=== PATIENT | male | born 1975 ===

== ENCOUNTER 2017-01-06 08:25 | Day surgery (SDC) | payer MEDICAID ==
[2017-01-06 08:45] VITALS: BMI 19.8
[2017-01-06] MEDS ORDERED: Propofol 10 mg/ml Inj (20 ML) ONE ×2 (10:56)
[2017-01-06] MEDS ORDERED: Lactated Ringer's 1,000 ML IV SCH (11:00)
[2017-01-08 15:28] VITALS: O2SAT 100
[2017-01-08 15:30] VITALS: RESP 18
[2017-01-08 15:32] VITALS: BP 111/78; PULSE 78
[2017-01-08 15:33] VITALS: TEMP 98
== END 2017-01-06 12:32 | disposition home or self-care (01) ==
LOC: C.ENDO 08:25
PROVIDERS: ATTEND Internal Medicine Gastroenterology
DX: K29.60 Other gastritis without bleeding (principal); K31.89 Other diseases of stomach and duodenum; K76.6 Portal hypertension; K70.30 Alcoholic cirrhosis of liver without ascites; I10 Essential (primary) hypertension
CPT/HCPCS: 43239; 88305; 88342; J2704; J7120

== ENCOUNTER 2017-04-23 13:41 | Emergency (ER) | payer MEDICAID ==
[2017-04-23 13:41] VITALS: BMI 19.8
[2017-04-23 13:49] VITALS: RESP 18; O2SAT 100
[2017-04-23] MEDS ORDERED: Sodium Chloride 0.9% 1,000 ML IV ONE (14:01)
--- NOTE | 2017-04-23 14:09 | C.PDOC ---
History Of Present Illness 42 y/o male hx alcohol abuse presents to the ED with complaints of episode of vertigo this morning. Pt states room spins when moving his head. He also reports shaking and abdominal discomfort. Pt had routine checkup with his PMD yesterday, he stopped drinking prior. He states he has never been to detox in the past, but would like to. Denies chest pain, SOB vomiting, vision changes or any other complaints. Time Seen by Provider: 04/23/17 13:55 Chief Complaint (Nursing): Dizziness/Lightheaded History Per: Patient History/Exam Limitations: no limitations Onset/Duration Of Symptoms: Hrs Current Symptoms Are (Timing): Still Present Suicide/Self Injury Attempted (Context): None Modifying Factor(s): Alcohol Severity: Mild Involuntary Hold By: None Recent travel outside of the [place]: No Past Medical History Reviewed: Historical Data, Nursing Documentation, Vital Signs Vital Signs: Last Vital Signs Temp 98.2 F 04/23/17 13:49 Pulse 74 04/23/17 13:49 Resp 18 04/23/17 13:49 BP 113/69 04/23/17 13:49 Pulse Ox 100 04/23/17 14:11 - Medical History PMH: Anemia, Gastritis (+ H. PYLORII), Gastrointestinal Ulcer, HTN (PORTAL), Seizures Surgical History: Endoscopy - [facility] Procedures ALCOHOL DETOXIFICATION (10/03/14) DETOXIFICATION SERVICES FOR SUBSTANCE ABUSE TREATMENT (10/16/16) ESOPHAGOGASTRODUODENOSCOPY [EGD] W/CLOSED BIOPSY (08/10/14) INDIV SHEET METAL PATTERN CUTTER FOR SUBSTANCE ABUSE TREATMENT, BEHAVIORAL (08/05/15) INSERTION OF ENDOTRACHEAL AIRWAY INTO TRACHEA, VIA OPENING (08/05/15) INSPECTION OF UPPER INTESTINAL TRACT, ENDO (08/05/15) OTHER ENDOSCOPY OF SM INTEST (11/19/14) PACKED CELL TRANSFUSION (04/04/15) PLATELET TRANSFUSION (11/19/14) RESPIRATORY VENTILATION, 24-96 CONSECUTIVE HOURS (08/05/15) TRANSFUSE NONAUT PLATELETS IN PERIPH VEIN, PERC (08/05/15) TRANSFUSE NONAUT RED BLOOD CELLS IN PERIPH VEIN, PERC (08/05/15) VACCINATION NEC (03/14/14) Family History: States: Unknown Family Hx - Social History Hx Tobacco Use: No Hx Alcohol Use: Yes (daily) Hx Substance Use: No - Immunization History Hx Tetanus Toxoid Vaccination: No Hx Influenza Vaccination: No Hx Pneumococcal Vaccination: No Review Of Systems Except As Marked, All Systems Reviewed And Found Negative. Eyes: Negative for: Vision Change Cardiovascular: Negative for: Chest Pain Respiratory: Negative for: Shortness of Breath Gastrointestinal: Negative for: Vomiting Neurological: Positive for: Dizziness Physical Exam - Physical Exam Appears: Non-toxic, No Acute Distress Skin: Warm, Dry, No Rash Head: Atraumatic, Normacephalic Eye(s): bilateral: Scleral Icterus Neck: Normal, Normal ROM, Supple Chest: Symmetrical Cardiovascular: Rhythm Regular, No Murmur Respiratory: Normal Breath Sounds, No Rales, No Rhonchi, No Wheezing Gastrointestinal/Abdominal: Soft, Tenderness (mild diffuse), No Guarding, No Rebound Extremity: Bilateral: Atraumatic Neurological/Psych: Oriented x3, Normal Speech, Normal Motor, Normal Sensation, Other (mild tremor) ED Course And Treatment - Laboratory Results Result Diagrams: 04/23/17 14:18 04/23/17 14:18 Lab Interpretation: Abnormal (Anemia, unchanged from labs done 2 weeks ago. Elevated AST and bili also unchanged) O2 Sat by Pulse Oximetry: 100 (room air) Pulse Ox Interpretation: Normal Reevaluation Time: 17:08 Reassessment Condition: Improved (Patient appears more comfortable after IV fluids. He is able to tolerate food.) - Physician Consult Information Time Consulting Physician Contacted: 17:09 Physician Contacted: Dennis Sawyer MD Outcome Of Conversation: She knows the patient well and states that he has known alcoholic cirrhosis. He usually refuses and detox or intervention. Patient is offered admission for treatment of alcohol withdrawal but is currently refusing. He will "foilow up next time." Disposition Counseled Patient/Family Regarding: Studies Performed, Need For Followup - Disposition Referrals: Silverio PATTERSON,MD Dennis [Medical Doctor] - Alcoholics Anonymous [Outside] Disposition: HOME/ ROUTINE Disposition Time: 17:15 Condition: STABLE Instructions: Alcohol Withdrawal (ED), Abuse of Alcohol (ED), Dizziness (ED) - Clinical Impression Clinical Impression: Alcohol withdrawal, Liver cirrhosis, alcoholic, Dizziness - Scribe Statement The provider has reviewed the documentation as recorded by the Adriana Burns Provider Attestation: All medical record entries made by the Robertibfernando were at my direction and personally dictated by me. I have reviewed the chart and agree that the record accurately reflects my personal performance of the history, physical exam, medical decision making, and the department course for this patient. I have also personally directed, reviewed, and agree with the discharge instructions and disposition.
[2017-04-23 14:29] LABS: HEMOGLOBIN 8.3 g/dL (12.0-18.0); MEAN CORPUSCULAR HEMOGLOBIN 22.9 pg (27.0-31.0); MEAN CORPUSCULAR HGB CONC 30.2 g/dL (33.0-37.0); MEAN PLATELET VOLUME 8.4 fL (7.2-11.7); RBC 3.6 Mil/uL (4.40-5.90); RED CELL DISTRIBUTION WIDTH 21.4 % (11.5-14.5)
[2017-04-23 14:30] LABS: WHITE BLOOD COUNT 4.2 K/uL (4.8-10.8)
[2017-04-23 14:32] LABS: ALBUMIN 4.4 g/dL (3.5-5.0)
[2017-04-23 14:34] LABS: GFR AFRICAN-AMERICAN > 60; GFR NON-AFRICAN AMERICAN > 60
[2017-04-23 14:35] LABS: ALT/SGPT 60 U/L (21-72); AST/SGOT 173 U/L (17-59); BLOOD UREA NITROGEN 7 mg/dL (9-20); CALCIUM 8.8 mg/dl (8.6-10.4)
[2017-04-23 15:05] LABS: LYMPH # 0.6 K/uL (1.0-4.3); MONO # 0.2 K/uL (0.0-0.8); NEUT # 3.4 K/uL (1.8-7.0)
[2017-04-23 16:45] LABS: BENZODIAZEPINES, UR NEGATIVE (NEGATIVE)
[2017-04-23 16:46] LABS: BARBITURATES, UR NEGATIVE (NEGATIVE)
[2017-04-23 16:51] LABS: OPIATES, UR NEGATIVE (NEGATIVE)
[2017-04-23 16:52] LABS: PHENCYCLIDINE, UR NEGATIVE (NEGATIVE)
[2017-04-23 17:07] LABS: URINE BILIRUBIN NEGATIVE (NEGATIVE); URINE BLOOD NEGATIVE (NEGATIVE); URINE CLARITY Clear (Clear); URINE COLOR Straw (YELLOW); URINE GLUCOSE (UA) NORMAL (Normal); URINE LEUKOCYTE ESTERASE NEG Leu/uL (Negative); URINE NITRATE NEGATIVE (NEGATIVE); URINE PROTEIN NEGATIVE (NEGATIVE); URINE UROBILINOGEN NORMAL mg/dL (0.2-1.0)
[2017-04-23 17:14] VITALS: BP 116/70; PULSE 78; TEMP 98.1
== END 2017-04-23 17:27 | disposition home or self-care (01) ==
LOC: C.ER 13:41
DX: F10.239 Alcohol dependence with withdrawal, unspecified (principal); K70.30 Alcoholic cirrhosis of liver without ascites; Y90.9 Presence of alcohol in blood, level not specified; R42 Dizziness and giddiness
CPT/HCPCS: 80053; 80320; 80324; 80345; 80346; 80349; 80353; 80358; 80361; 81001; 83992; 85025; 96360; 99285; J7040

== ENCOUNTER 2017-04-25 16:52 | Inpatient (IN) | payer MEDICAID ==
--- NOTE | 2017-04-25 17:45 | C.PDOC ---
History Of Present Illness <Janet Gao - Last Filed: 04/25/17 18:56> <DeionPillo Barraza - Last Filed: 04/25/17 20:59> RECUR AUD HALLUCINATION X SEV DAYS. SELF DETOX ETOH SINCE 04/23. PS HEARING "OTHER PEOPLE TALKING TO ME EVEN THOUGH I AM ALONE". DENIES NV, SZ. STATES PT W SIM EPISODES IN PAST WHEN WOULD SELF DETOX. PMH ETOH CIRRHOSIS exam MILD DIST NONTOXIC HEENT ANICTERIC. NO FASCICULATIONS CV RRR PSYCH +ACTIVE AUD HALLUCINATIONS. CALM COOPERATIVE NO SIGNS ACUTE INTOX. NO SI/ SA NEURO INTACT REMAINDER NEG (Janet Gao) History Per: Patient History/Exam Limitations: no limitations Onset/Duration Of Symptoms: Days Current Symptoms Are (Timing): Still Present Modifying Factor(s): Alcohol Associated Symptoms: Other (AUDITORY HALLUCINATION) Recent travel outside of the [place]: No <Janet Gao - Last Filed: 04/25/17 18:56> <BenoitPillo Barraza - Last Filed: 04/25/17 20:59> Chief Complaint (Nursing): Substance Abuse Past Medical History Reviewed: Historical Data, Nursing Documentation, Vital Signs - Medical History PMH: Anemia, Gastritis (+ H. PYLORII), Gastrointestinal Ulcer, HTN (PORTAL), Seizures Surgical History: Endoscopy Family History: States: Unknown Family Hx - Social History Hx Tobacco Use: No Hx Alcohol Use: Yes (daily) Hx Substance Use: No - Immunization History Hx Tetanus Toxoid Vaccination: No Hx Influenza Vaccination: No Hx Pneumococcal Vaccination: No <Janet Gao - Last Filed: 04/25/17 18:56> Review Of Systems Except As Marked, All Systems Reviewed And Found Negative. Constitutional: Negative for: Fever, Chills Cardiovascular: Negative for: Chest Pain Respiratory: Negative for: Cough, Shortness of Breath Gastrointestinal: Negative for: Nausea, Vomiting, Abdominal Pain Skin: Negative for: Rash Neurological: Negative for: Headache, Dizziness Psych: Positive for: Psychosis <Janet Gao - Last Filed: 04/25/17 18:56> Physical Exam - Physical Exam Appears: Non-toxic, Other (MILD DISTRESS) Skin: Normal Color, Warm, Dry Head: Atraumatic, Normacephalic Oral Mucosa: Moist Chest: Symmetrical Cardiovascular: Rhythm Regular Respiratory: Normal Breath Sounds, No Rales, No Rhonchi, No Wheezing Gastrointestinal/Abdominal: Soft, No Tenderness, No Guarding, No Rebound Back: Normal Inspection Extremity: Normal ROM, Capillary Refill (< 2 SEC.) Neurological/Psych: Oriented x3, Normal Speech, Normal Cognition, Other (PSYCH + ACTIVE AUD HALLUCINATIONS. CALM COOPERATIVE NO SIGNS ACUTE INTOX. NO SI/SA. NEURO INTACT.) <Janet Gao - Last Filed: 04/25/17 18:56> ED Course And Treatment - Laboratory Results Result Diagrams: 04/25/17 18:15 04/25/17 18:15 O2 Sat by Pulse Oximetry: 97 (RA) Pulse Ox Interpretation: Normal <Janet Gao - Last Filed: 04/25/17 18:56> - Laboratory Results Result Diagrams: 04/25/17 18:15 04/25/17 18:15 <Pillo Benoit - Last Filed: 04/25/17 20:59> Progress - Data Reviewed Data Reviewed: Lab, Diagnostic imaging, EKG, Old records - Critical Care Citical Care: Excluding Proc Time Critical Care Time: 90 minutes <Janet Gao - Last Filed: 04/25/17 18:56> <Pillo Benoit - Last Filed: 04/25/17 20:59> - Re-Evaluation Re-evaluation Note: 04/25/17 18:[address] DEION HOFFMANN DISPO (Janet Gao) Medical Decision Making <Janet Gao - Last Filed: 04/25/17 18:56> <Pillo Benoit - Last Filed: 04/25/17 20:59> Medical Decision Makin:06. Pt is Calm, in no acute distress No tremors noted Heart not tachycardic. Lungs Clear Pt states he hears and sees people taking to him. Dr. Abrams hospitalist notified. Will admit pt. (Pillo Benoit) Disposition <Janet Gao - Last Filed: 04/25/17 18:56> Discussed With : Hannah Leroy Doctor Will See Patient In The: Hospital Counseled Patient/Family Regarding: Diagnosis - Disposition Disposition Time: 20:17 - POA Present On Arrival: None <Pillo Benoit - Last Filed: 04/25/17 20:59> - Disposition Disposition: HOSPITALIZED Condition: STABLE - Clinical Impression Clinical Impression: Withdrawal symptoms, alcohol, Alcohol dependence - Scribe Statement The provider has reviewed the documentation as recorded by the Scribe <Janet Gao - Last Filed: 04/25/17 18:56> <Pillo Benoit - Last Filed: 04/25/17 20:59> - Scribe Statement CIERRA ASHLEY All medical record entries made by the Scribe were at my direction and personally dictated by me. I have reviewed the chart and agree that the record accurately reflects my personal performance of the history, physical exam, medical decision making, and the department course for this patient. I have also personally directed, reviewed, and agree with the discharge instructions and disposition. (Janet Gao) Physician Patient Turnover Patient Signed Over To: Pillo Benoit Handoff Comments: FU DISPO <Janet Gao - Last Filed: 04/25/17 18:56>
[2017-04-25 17:47] LABS: SQUAMOUS EPITHIAL 1 /hpf (0-5); URINE BACTERIA OCC (<OCC); URINE BILIRUBIN NEGATIVE (NEGATIVE); URINE BLOOD NEGATIVE (NEGATIVE); URINE CLARITY Clear (Clear); URINE COLOR Amber (YELLOW); URINE GLUCOSE (UA) NORMAL (Normal); URINE LEUKOCYTE ESTERASE NEG Leu/uL (Negative); URINE NITRATE NEGATIVE (NEGATIVE); URINE PROTEIN 1+ mg/dL (NEGATIVE)
[2017-04-25 17:50] LABS: BARBITURATES, UR NEGATIVE (NEGATIVE)
[2017-04-25] MEDS ORDERED: Multivitamin (MVI) 10 ML, Thiamine 100 MG, Folic Acid 1 MG in Sodium Chloride 0.9% 1,00... IV ONE ×2 (17:50→19:47)
[2017-04-25 17:51] LABS: BENZODIAZEPINES, UR NEGATIVE (NEGATIVE)
[2017-04-25 17:54] LABS: OPIATES, UR NEGATIVE (NEGATIVE); PHENCYCLIDINE, UR NEGATIVE (NEGATIVE)
[2017-04-25 18:27] LABS: HEMOGLOBIN 7.8 g/dL (12.0-18.0); MEAN CELL VOLUME 76.8 fL (80.0-94.0); MEAN CORPUSCULAR HEMOGLOBIN 22.9 pg (27.0-31.0); MEAN CORPUSCULAR HGB CONC 29.8 g/dL (33.0-37.0); MEAN PLATELET VOLUME 8.6 fL (7.2-11.7); RBC 3.42 Mil/uL (4.40-5.90); WHITE BLOOD COUNT 5.9 K/uL (4.8-10.8)
[2017-04-25 18:28] LABS: ALBUMIN 4.1 g/dL (3.5-5.0); INR 1.5; PROTHROMBIN TIME 17.2 SECONDS (9.7-12.2)
[2017-04-25 18:30] LABS: GFR AFRICAN-AMERICAN > 60; GFR NON-AFRICAN AMERICAN > 60
[2017-04-25 18:31] LABS: ALT/SGPT 58 U/L (21-72); AST/SGOT 113 U/L (17-59); BLOOD UREA NITROGEN 10 mg/dL (9-20); CALCIUM 8.9 mg/dl (8.6-10.4); LIPASE 270 U/L (23-300)
[2017-04-25 18:32] LABS: MAGNESIUM 1.4 mg/dL (1.6-2.3)
[2017-04-25] MEDS ORDERED: Bacitracin 500 Units/gm Oint Foilpak UD TOP ONE (18:33)
--- NOTE | 2017-04-25 18:42 | CT ---
PROCEDURE: CT HEAD WITHOUT CONTRAST. HISTORY: AMS COMPARISON: 09/01/2013 TECHNIQUE: Axial computed tomography images were obtained through the head/brain without intravenous contrast. Radiation dose: Total exam DLP = 904.85 mGy-cm. This CT exam was performed using one or more of the following dose reduction techniques: Automated exposure control, adjustment of the mA and/or kV according to patient size, and/or use of iterative reconstruction technique. FINDINGS: HEMORRHAGE: No intracranial hemorrhage. BRAIN: No mass effect or edema. There is mild diffuse atrophy, greater than expected for patient age. There is no evidence of acute infarct. VENTRICLES: Unremarkable. No hydrocephalus. CALVARIUM: Unremarkable. PARANASAL SINUSES: Unremarkable as visualized. No significant inflammatory changes. MASTOID AIR CELLS: Unremarkable as visualized. No inflammatory changes. OTHER FINDINGS: None. IMPRESSION: Mild diffuse atrophy, greater than expected for patient age. No evidence of intracranial mass, hemorrhage or acute infarct.
[2017-04-25 19:37] LABS: BASO % 1.7 % (0.0-2.0); EOS % 1.7 % (0.0-4.0); LYMPH % 26.3 % (20.0-40.0); NEUT # 3.4 K/uL (1.8-7.0); NEUT % 57.3 % (50.0-75.0)
[2017-04-25 19:38] LABS: BASO # 0.1 K/uL (0.0-0.2); EOS # 0.1 K/uL (0.0-0.7); LYMPH # 1.6 K/uL (1.0-4.3); MONO # 0.8 K/uL (0.0-0.8)
[2017-04-25] MEDS ORDERED: Magnesium Sulfate 1 gm in D5W 1 GM/100 ML BAG IVPB ONE ×2 (20:43→20:51)
[2017-04-26] MEDS ORDERED: Multivitamin (MVI) 10 ML, Thiamine 100 MG, Folic Acid 1 MG in Sodium Chloride 0.9% 1,00... IV ONE (02:41)
--- NOTE | 2017-04-26 08:44 | RAD ---
PROCEDURE: CHEST RADIOGRAPH, 1 VIEW HISTORY: AMS COMPARISON: Comparison is made to 10/16/2016 FINDINGS: LUNGS: No significant interval change in the lungs noted since the previous exam. Again seen is left apical thin wall bulla. PLEURA: No pneumothorax or pleural fluid seen. CARDIOVASCULAR: Normal. OSSEOUS STRUCTURES: No significant abnormalities. VISUALIZED UPPER ABDOMEN: Normal. OTHER FINDINGS: None. IMPRESSION: No evidence of acute pulmonary disease or significant interval change when compared to the previous study. Emphysematous changes.
[2017-04-26] MEDS: Pantoprazole 40 mg EC Tab PO SCH (09:39)
[2017-04-26 11:55] VITALS: BMI 19.5
--- NOTE | 2017-04-26 14:39 | CP.PCM.HP ---
Past Patient History - Infectious Disease Hx of Infectious Diseases: None - Past Medical History & Family History Past Medical History?: Yes - Past Social History Smoking Status: Never Smoked - CARDIAC Hx Hypertension: Yes (PORTAL) - PULMONARY Hx Respiratory Disorders: No - NEUROLOGICAL Hx Seizures: Yes - HEENT Hx HEENT Problems: No - RENAL Hx Chronic Kidney Disease: No - ENDOCRINE/METABOLIC Hx Endocrine Disorders: No - HEMATOLOGICAL/ONCOLOGICAL Hx Anemia: Yes - INTEGUMENTARY Hx Dermatological Problems: No - MUSCULOSKELETAL/RHEUMATOLOGICAL Hx Falls: No Hx Fractures: No - GASTROINTESTINAL Hx Gastritis: Yes (+ H. PYLORII) - GENITOURINARY/GYNECOLOGICAL Hx Genitourinary Disorders: No - PSYCHIATRIC Hx Substance Use: No - SURGICAL HISTORY Hx Surgeries: Yes - ANESTHESIA Hx Anesthesia: Yes Hx Anesthesia Reactions: No Hx Malignant Hyperthermia: No Meds Allergies/Adverse Reactions: Allergies Allergy/AdvReac Type Severity Reaction Status Date / Time No Known Allergies Allergy Verified 04/25/17 17:10 Physical Exam - Constitutional Appears: Well - Head Exam Head Exam: ATRAUMATIC, NORMAL INSPECTION, NORMOCEPHALIC - Eye Exam Eye Exam: EOMI, Normal appearance, PERRL Pupil Exam: NORMAL ACCOMODATION, PERRL - ENT Exam ENT Exam: Mucous Membranes Moist, Normal Exam - Neck Exam Neck exam: Positive for: Normal Inspection - Respiratory Exam Respiratory Exam: Decreased Breath Sounds - Cardiovascular Exam Cardiovascular Exam: REGULAR RHYTHM, +S1, +S2 - GI/Abdominal Exam GI & Abdominal Exam: Diminished Bowel Sounds, Soft - Rectal Exam Rectal Exam: Deferred Results - Vital Signs Recent Vital Signs: Last Vital Signs Temp 98.3 F 04/26/17 09:31 Pulse 66 04/26/17 09:31 Resp 20 04/26/17 09:31 BP 111/68 04/26/17 09:31 Pulse Ox 99 04/26/17 09:31 - Labs Result Diagrams: 04/25/17 18:15 04/25/17 18:15 Labs: Laboratory Results - last 24 hr 04/25/17 22:58 Blood Type O POSITIVE Antibody Screen Negative
[2017-04-27] MEDS: Pantoprazole 40 mg EC Tab PO SCH (09:29)
--- NOTE | 2017-04-27 21:35 | CP.PCM.PN ---
Subjective - Date & Time of Evaluation Date of Evaluation: 04/27/17 Objective - Vital Signs/Intake and Output Vital Signs (last 24 hours): Temp Pulse Resp BP Pulse Ox 97.8 F 73 20 137/83 99 04/27/17 15:54 04/27/17 15:54 04/27/17 15:54 04/27/17 15:54 04/27/17 15:54 Intake and Output: 04/27/17 04/28/17 18:59 06:59 Intake Total 280 Balance 280 - Medications Medications: Current Medications Chlordiazepoxide (Librium) 25 mg PO Q8 [facility] Stop: 05/01/17 06:01 Last Admin: 04/27/17 21:29 Dose: 25 mg Pantoprazole Sodium (Protonix Ec Tab) 40 mg PO DAILY [facility] Last Admin: 04/27/17 09:29 Dose: 40 mg Thiamine HCl (Vitamin B1 Tab) 100 mg PO DAILY [facility] Last Admin: 04/27/17 09:29 Dose: 100 mg - Labs Labs: PT 17.2 SECONDS (9.7-12.2) H 04/25/17 18:15 INR 1.5 04/25/17 18:15 APTT 39 SECONDS (21-34) H 04/25/17 18:15
[2017-04-28 07:44] VITALS: RESP 20
[2017-04-28] MEDS: Pantoprazole 40 mg EC Tab PO SCH (10:09)
--- NOTE | 2017-04-28 11:22 | CP.PCM.PN ---
Subjective - Date & Time of Evaluation Date of Evaluation: 04/28/17 Time of Evaluation: 10:40 - Subjective Subjective: clinically same Objective - Vital Signs/Intake and Output Vital Signs (last 24 hours): Temp Pulse Resp BP Pulse Ox 97.9 F 85 20 103/72 99 04/28/17 07:42 04/28/17 07:42 04/28/17 07:42 04/28/17 07:42 04/28/17 07:42 - Medications Medications: Current Medications Chlordiazepoxide (Librium) 25 mg PO Q8 [facility] Stop: 05/01/17 06:01 Last Admin: 04/28/17 05:22 Dose: 25 mg Pantoprazole Sodium (Protonix Ec Tab) 40 mg PO DAILY [facility] Last Admin: 04/28/17 10:09 Dose: 40 mg Thiamine HCl (Vitamin B1 Tab) 100 mg PO DAILY [facility] Last Admin: 04/28/17 10:09 Dose: 100 mg - Labs Labs: PT 17.2 SECONDS (9.7-12.2) H 04/25/17 18:15 INR 1.5 04/25/17 18:15 APTT 39 SECONDS (21-34) H 04/25/17 18:15 - Constitutional Appears: Well - Head Exam Head Exam: ATRAUMATIC, NORMAL INSPECTION, NORMOCEPHALIC - Eye Exam Eye Exam: EOMI, Normal appearance, PERRL Pupil Exam: NORMAL ACCOMODATION, PERRL - ENT Exam ENT Exam: Mucous Membranes Moist, Normal Exam - Neck Exam Neck Exam: Full ROM, Normal Inspection. absent: Lymphadenopathy - Respiratory Exam Respiratory Exam: Decreased Breath Sounds - Cardiovascular Exam Cardiovascular Exam: REGULAR RHYTHM, +S1, +S2 - GI/Abdominal Exam GI & Abdominal Exam: Soft, Diminished Bowel Sounds - Rectal Exam Rectal Exam: Deferred
[2017-04-28 11:51] LABS: HEMOGLOBIN 7.9 g/dL (12.0-18.0); MEAN CELL VOLUME 77.8 fL (80.0-94.0); MEAN PLATELET VOLUME 8.4 fL (7.2-11.7)
[2017-04-28 11:55] LABS: MEAN CORPUSCULAR HEMOGLOBIN 23.3 pg (27.0-31.0); RBC 3.39 Mil/uL (4.40-5.90); RED CELL DISTRIBUTION WIDTH 22.2 % (11.5-14.5); WHITE BLOOD COUNT 4.3 K/uL (4.8-10.8)
[2017-04-28 12:04] LABS: ALBUMIN 3.9 g/dL (3.5-5.0)
[2017-04-28 12:06] LABS: GFR AFRICAN-AMERICAN > 60; GFR NON-AFRICAN AMERICAN > 60
[2017-04-28 12:07] LABS: ALT/SGPT 53 U/L (21-72); AST/SGOT 96 U/L (17-59); BLOOD UREA NITROGEN 10 mg/dL (9-20)
[2017-04-28 12:08] LABS: CALCIUM 8.9 mg/dl (8.6-10.4)
[2017-04-28 12:22] LABS: BASO # 0.1 K/uL (0.0-0.2); EOS # 0.1 K/uL (0.0-0.7); LYMPH # 0.5 K/uL (1.0-4.3); MONO # 0.7 K/uL (0.0-0.8)
--- NOTE | 2017-04-28 12:54 | CARD ---
APPROVED REPORT EKG Measurement Heart [id number] <Conclusion> Normal sinus rhythm Normal ECG
[2017-04-28 13:52] LABS: HEMOGLOBIN 8.3 g/dL (12.0-18.0)
[2017-04-28 14:20] LABS: MEAN CELL VOLUME 78.6 fL (80.0-94.0); MEAN CORPUSCULAR HEMOGLOBIN 23.2 pg (27.0-31.0); MEAN CORPUSCULAR HGB CONC 29.6 g/dL (33.0-37.0); MEAN PLATELET VOLUME 8.4 fL (7.2-11.7); PLATELET COUNT 95 K/uL (130-400); RBC 3.58 Mil/uL (4.40-5.90); RED CELL DISTRIBUTION WIDTH 22.3 % (11.5-14.5); WHITE BLOOD COUNT 4.9 K/uL (4.8-10.8)
[2017-04-28 15:50] LABS: BASO # 0.1 K/uL (0.0-0.2); EOS # 0.2 K/uL (0.0-0.7); LYMPH # 0.4 K/uL (1.0-4.3); MONO # 0.8 K/uL (0.0-0.8); NEUT # 3.4 K/uL (1.8-7.0)
[2017-04-28 15:51] LABS: BASOPHIL 1 % (0-2); EOSINOPHIL 4 % (0-4); LYMPHOCYTE 11 % (20-40); MONOCYTE 15 % (0-10); NEUTROPHIL 69 % (50-75); PLATELET ESTIMATE DECREASED (NORMAL); TOTAL CELLS COUNTED 100
[2017-04-28 15:52] LABS: ANISOCYTOSIS SLIGHT; HYPOCHROMIC SLIGHT; POIKILOCYTOSIS SLIGHT; TARGET CELLS SLIGHT; TEARDROP CELLS SLIGHT
[2017-04-29] MEDS: Dextrose 5%/0.45% NS 1,000 ML IV SCH ×2 (00:41→14:13)
[2017-04-29 07:38] LABS: HEMOGLOBIN 7.9 g/dL (12.0-18.0); MEAN CELL VOLUME 77.4 fL (80.0-94.0); MEAN CORPUSCULAR HEMOGLOBIN 23.3 pg (27.0-31.0); MEAN CORPUSCULAR HGB CONC 30.1 g/dL (33.0-37.0); MEAN PLATELET VOLUME 8.7 fL (7.2-11.7); RBC 3.38 Mil/uL (4.40-5.90); RED CELL DISTRIBUTION WIDTH 21.7 % (11.5-14.5); WHITE BLOOD COUNT 3.7 K/uL (4.8-10.8)
[2017-04-29 07:53] LABS: ALBUMIN 3.8 g/dL (3.5-5.0)
[2017-04-29 07:56] LABS: AST/SGOT 97 U/L (17-59); GFR AFRICAN-AMERICAN > 60; GFR NON-AFRICAN AMERICAN > 60
[2017-04-29 07:57] LABS: ALT/SGPT 55 U/L (21-72); BLOOD UREA NITROGEN 7 mg/dL (9-20); CALCIUM 8.8 mg/dl (8.6-10.4)
[2017-04-29 08:46] LABS: EOS # 0.2 K/uL (0.0-0.7); LYMPH # 0.4 K/uL (1.0-4.3); MONO # 0.5 K/uL (0.0-0.8); NEUT # 2.5 K/uL (1.8-7.0)
[2017-04-29] MEDS: Pantoprazole 40 mg EC Tab PO SCH (10:51)
--- NOTE | 2017-04-29 11:26 | CP.PCM.PN ---
Subjective - Date & Time of Evaluation Date of Evaluation: 04/29/17 Time of Evaluation: 11:00 - Subjective Subjective: clinically same Objective - Vital Signs/Intake and Output Vital Signs (last 24 hours): Temp Pulse Resp BP Pulse Ox 97.4 F L 64 20 99/65 L 100 04/29/17 07:54 04/29/17 07:54 04/29/17 07:54 04/29/17 07:54 04/29/17 07:54 Intake and Output: 04/29/17 04/29/17 06:59 18:59 Intake Total 900 Balance 900 - Medications Medications: Current Medications Chlordiazepoxide (Librium) 25 mg PO Q8 [facility] Stop: 05/01/17 06:01 Last Admin: 04/29/17 05:55 Dose: 25 mg Dextrose/Sodium Chloride (Dextrose 5%/0.45% Ns 1000 Ml) 1,000 mls @ 75 mls/hr IV .[id number] [facility] Last Admin: 04/29/17 00:41 Dose: 75 mls/hr Pantoprazole Sodium (Protonix Ec Tab) 40 mg PO DAILY [facility] Last Admin: 04/29/17 10:51 Dose: 40 mg Thiamine HCl (Vitamin B1 Tab) 100 mg PO DAILY [facility] Last Admin: 04/29/17 10:51 Dose: 100 mg - Labs Labs: 04/29/17 07:21 04/29/17 07:21 PT 17.2 SECONDS (9.7-12.2) H 04/25/17 18:15 INR 1.5 04/25/17 18:15 APTT 39 SECONDS (21-34) H 04/25/17 18:15 - Constitutional Appears: Well - Head Exam Head Exam: ATRAUMATIC, NORMAL INSPECTION, NORMOCEPHALIC - Eye Exam Eye Exam: EOMI, Normal appearance, PERRL Pupil Exam: NORMAL ACCOMODATION, PERRL - ENT Exam ENT Exam: Mucous Membranes Moist, Normal Exam - Neck Exam Neck Exam: Full ROM, Normal Inspection. absent: Lymphadenopathy - Respiratory Exam Respiratory Exam: Decreased Breath Sounds - Cardiovascular Exam Cardiovascular Exam: REGULAR RHYTHM, +S1, +S2 - GI/Abdominal Exam GI & Abdominal Exam: Soft, Diminished Bowel Sounds - Rectal Exam Rectal Exam: Deferred
--- NOTE | 2017-04-29 14:12 | PCM.PSYCH ---
Initial Psychiatric Evaluation - Initial Psychiatric Evaluation Type of Admission: Voluntary Legal Status: Capacity History of Present Illness and Precipitating Events: Patient is a 42 year old, , unemployed, [place]ian man with a dx of alcohol use disorder. Patient reports auditory hallucinations upon admission of a happy [place]ian song and talking voices - but he could not recall what the voices were saying. Pt denies auditory hallucinations today. Patient reports a normal appetite. Denies suicidal ideations, paranoia, delusions, anxiety and depression. Alcohol: Pt started drinking at age 16. Patient reports drinking 4- 6 24 oz. cans of beer daily. and his last drink was on the . Patient denies withdrawal symptoms at this time. Family psychiatric hx: denies psychiatric issues Medical hx: liver problems due to alcohol use Social hx: Pt lives with his and has one 10 year old son. He is unemployed. His is employed at a [employer] and a [employer]. Current Medications: Active Medications Generic Name Dose Route Start Last Admin Trade Name Freq PRN Reason Stop Dose Admin Chlordiazepoxide 25 mg 04/26/17 06:00 04/29/17 13:19 Librium PO 05/01/17 06:01 25 mg Q8 [facility] Administration Dextrose/Sodium Chloride 1,000 mls @ 75 mls/hr 04/29/17 00:30 04/29/17 00:41 Dextrose 5%/0.45% Ns 1000 Ml IV 75 mls/hr .[id number] [facility] Administration Pantoprazole Sodium 40 mg 04/26/17 10:00 04/29/17 10:51 Protonix Ec Tab PO 40 mg DAILY [facility] Administration Thiamine HCl 100 mg 04/26/17 10:00 04/29/17 10:51 Vitamin B1 Tab PO 100 mg DAILY [facility] Administration Past Psychiatric History - Past Psychiatric History Previous Treatment History: None Pertinent Medical Hx (Current Medical&Sleep Prob, Allergies): Allergies Allergy/AdvReac Type Severity Reaction Status Date / Time No Known Allergies Allergy Verified 04/25/17 17:10 Folic Acid 1 mg PO DAILY 04/25/17 Hydroxyzine Pamoate [Vistaril] 25 mg PO TID PRN 04/25/17 Pantoprazole Sodium [Protonix] 40 mg PO DAILY 04/25/17 Propranolol [Propranolol HCl] 10 mg PO BID 04/25/17 Review of Systems - Review of Systems All systems: reviewed and no additional remarkable complaints except - Psychiatric Psychiatric: As Per HPI, Auditory Hallucinations. absent: Anxiety, Change in Appetite, Depression Mental Status Examination - Personal Presentation Personal Presentation: Looks stated age - Affect Affect: Constricted - Motor Activity Motor Activity: Calm - Reliability in Providing Information Reliability in Providing Information: Good - Speech Speech: Organized - Mood Mood: Neutral - Formal Thought Process Formal Thought Process: Hallucinations, Paranoia - Hallucinations/Delusions Hallucinations: Visual - Obsessions/Compulsions Obsessions: No Compulsions: No - Cognitive Functions Orientation: Person, Place, Situation, Time Sensorium: Alert Attention/Concentration: Attentive Abstract Thinking: [place] Estimate of Intelligence: Below average Judgement: Imparied, as evidence by: Poor judgement, Intact, as evidence by: Insight regarding need for hospitalization - Risk Risk: Withdrawal, Diminished functioning - Strength & Assets Inventory Strength & Assets Inventory: Family support DSM 5 DX - DSM 5 DSM 5 Diagnosis: Alcohol use disorder severe Alcohol withdrawal with perceptual disturbances - Recommended/Plan of Treatment Treatment Recommendations and Plan of Treatment: Alcohol use disorder severe CBT Psychoeducation Supportive therapy, individual therapy Use MN for abstinence Librium when necessary Librium taper Folic acid/thiamine/multivitamin Alcohol withdrawal with perceptual disturbances CBT Psychoeducation Patient psychiatrically cleared with a plan to follow-up with outpatient clinic
[2017-04-30] MEDS: Dextrose 5%/0.45% NS 1,000 ML IV SCH ×2 (01:44→02:32)
[2017-04-30] MEDS: Pantoprazole 40 mg EC Tab PO SCH (10:38)
[2017-04-30 12:03] LABS: HEMOGLOBIN 8.4 g/dL (12.0-18.0); MEAN CORPUSCULAR HEMOGLOBIN 23.3 pg (27.0-31.0); MEAN CORPUSCULAR HGB CONC 29.6 g/dL (33.0-37.0); MEAN PLATELET VOLUME 8.6 fL (7.2-11.7); RBC 3.59 Mil/uL (4.40-5.90); RED CELL DISTRIBUTION WIDTH 21.6 % (11.5-14.5); WHITE BLOOD COUNT 5.3 K/uL (4.8-10.8)
[2017-04-30 13:24] LABS: EOS # 0.1 K/uL (0.0-0.7); LYMPH # 0.5 K/uL (1.0-4.3); MONO # 0.8 K/uL (0.0-0.8); NEUT # 3.9 K/uL (1.8-7.0)
[2017-04-30 15:55] VITALS: BP 106/73; PULSE 86; TEMP 97.3; O2SAT 100
--- NOTE | 2017-04-30 17:44 | CP.PCM.PN ---
Subjective - Date & Time of Evaluation Date of Evaluation: 04/30/17 Time of Evaluation: 17:34 - Subjective Subjective: 42 Y/O MALE SEEN AND EXAMINED TODAY, DENIES ANY PAIN, SOB, HALLUCINATION, ABDOMINAL PAIN, N/V/, HEMATURIA OR ANY BLEEDING, RESP EASY AND UNLABORED. NAD. Objective - Vital Signs/Intake and Output Vital Signs (last 24 hours): Temp Pulse Resp BP Pulse Ox 97.3 F L 86 20 106/73 100 04/30/17 15:52 04/30/17 15:52 04/30/17 15:52 04/30/17 15:52 04/30/17 15:52 - Medications Medications: Current Medications Chlordiazepoxide (Librium) 25 mg PO Q8 [facility] Stop: 05/01/17 06:01 Last Admin: 04/30/17 15:42 Dose: 25 mg Dextrose/Sodium Chloride (Dextrose 5%/0.45% Ns 1000 Ml) 1,000 mls @ 75 mls/hr IV .[id number] [facility] Last Admin: 04/30/17 02:32 Dose: Not Given Pantoprazole Sodium (Protonix Ec Tab) 40 mg PO DAILY [facility] Last Admin: 04/30/17 10:38 Dose: 40 mg Thiamine HCl (Vitamin B1 Tab) 100 mg PO DAILY [facility] Last Admin: 04/30/17 10:38 Dose: 100 mg - Labs Labs: 04/30/17 11:28 04/29/17 07:21 PT 17.2 SECONDS (9.7-12.2) H 04/25/17 18:15 INR 1.5 04/25/17 18:15 APTT 39 SECONDS (21-34) H 04/25/17 18:15 Assessment and Plan - Assessment and Plan (Free Text) Plan: 42 Y/O MALE WIHT PMHX ALCOHOL WITHDRAWAL, ANEMIA, AUDITORY HALLUCINATION AUDITORY HALLUCINATION LIKELY SECONDARY TO ETOH WITHDRAWAL CIWA, LIBRIUM TAPER CONSULTED DR ALBA- CLEARED BY HIM MVT, THIAMINE , FOLIC ACID H/H - 8.4/28.4 (04/30) PT ADVISED TO REFRAIN FROM ALCOHOL F/U W/DR Henny WEAVER IN THE OFFICE FOR REPEAT LAB RETURN TO ED IF ANY WORSENING S/S PT AND FAMILY AGREE W/POC, VERBALIZE UNDERSTANDING
--- NOTE | 2017-04-30 17:46 | CP.PCM.PN ---
Subjective - Date & Time of Evaluation Date of Evaluation: 04/30/17 Time of Evaluation: 12:00 - Subjective Subjective: clinically same Objective - Vital Signs/Intake and Output Vital Signs (last 24 hours): Temp Pulse Resp BP Pulse Ox 97.3 F L 86 20 106/73 100 04/30/17 15:52 04/30/17 15:52 04/30/17 15:52 04/30/17 15:52 04/30/17 15:52 - Medications Medications: Current Medications Chlordiazepoxide (Librium) 25 mg PO Q8 COUNTS INCLUDE 234 BEDS AT THE [facility] Stop: 05/01/17 06:01 Last Admin: 04/30/17 15:42 Dose: 25 mg Dextrose/Sodium Chloride (Dextrose 5%/0.45% Ns 1000 Ml) 1,000 mls @ 75 mls/hr IV .[id number] COUNTS INCLUDE 234 BEDS AT THE [facility] Last Admin: 04/30/17 02:32 Dose: Not Given Pantoprazole Sodium (Protonix Ec Tab) 40 mg PO DAILY COUNTS INCLUDE 234 BEDS AT THE [facility] Last Admin: 04/30/17 10:38 Dose: 40 mg Thiamine HCl (Vitamin B1 Tab) 100 mg PO DAILY COUNTS INCLUDE 234 BEDS AT THE [facility] Last Admin: 04/30/17 10:38 Dose: 100 mg - Labs Labs: 04/30/17 11:28 04/29/17 07:21 PT 17.2 SECONDS (9.7-12.2) H 04/25/17 18:15 INR 1.5 04/25/17 18:15 APTT 39 SECONDS (21-34) H 04/25/17 18:15 - Constitutional Appears: Well - Head Exam Head Exam: ATRAUMATIC, NORMAL INSPECTION, NORMOCEPHALIC - Eye Exam Eye Exam: EOMI, Normal appearance, PERRL Pupil Exam: NORMAL ACCOMODATION, PERRL - ENT Exam ENT Exam: Mucous Membranes Moist, Normal Exam - Neck Exam Neck Exam: Full ROM, Normal Inspection. absent: Lymphadenopathy - Respiratory Exam Respiratory Exam: Decreased Breath Sounds - Cardiovascular Exam Cardiovascular Exam: REGULAR RHYTHM, +S1, +S2 ( ) - GI/Abdominal Exam GI & Abdominal Exam: Soft, Diminished Bowel Sounds - Rectal Exam Rectal Exam: Deferred
== END 2017-04-30 18:48 | disposition home or self-care (01) | DRG 751 ==
LOC: C.ER 16:52 → C.9E 20:52 → C.5T 21:58
PROVIDERS: ADMIT Internal Medicine Nephrology; ATTEND Internal Medicine Nephrology
PROC: HZ89ZZZ Medication Management for Substance Abuse Treatment, Other Replacement Medication (ICD-10-PCS; principal; 2017-04-25)
PROC: HZ59ZZZ Individual Psychotherapy for Substance Abuse Treatment, Supportive (ICD-10-PCS; 2017-04-25)
DX: F10.232 Alcohol dependence with withdrawal with perceptual disturbance (principal); K76.6 Portal hypertension; F10.251 Alcohol dependence with alcohol-induced psychotic disorder with hallucinations; D64.9 Anemia, unspecified; G40.909 Epilepsy, unspecified, not intractable, without status epilepticus

== ENCOUNTER 2017-05-12 14:07 | Observation (INO) | payer MEDICAID ==
[2017-05-12 14:07] VITALS: BMI 19.5
[2017-05-12] MEDS ORDERED: Sodium Chloride 0.9% 1,000 ML IV ONE (15:03)
[2017-05-12 15:59] LABS: WHITE BLOOD COUNT 5.1 K/uL (4.8-10.8)
[2017-05-12 16:04] LABS: HEMATOCRIT 24.6 % (35.0-51.0); MEAN CORPUSCULAR HEMOGLOBIN 22.3 pg (27.0-31.0); MEAN CORPUSCULAR HGB CONC 30.7 g/dL (33.0-37.0); MEAN PLATELET VOLUME 8.7 fL (7.2-11.7); PLATELET COUNT 131 K/uL (130-400); RED CELL DISTRIBUTION WIDTH 19.4 % (11.5-14.5)
[2017-05-12 16:05] LABS: MEAN CELL VOLUME 72.7 fL (80.0-94.0)
[2017-05-12 16:08] LABS: INR 1.2
[2017-05-12 16:13] LABS: CHLORIDE 98 mmol/L (98-107)
[2017-05-12 16:14] LABS: POTASSIUM 4.1 mmol/L (3.6-5.2); SODIUM 138 mmol/L (132-148)
[2017-05-12 16:16] LABS: ALKALINE PHOSPHATASE 157 U/L (38-126); AST/SGOT 118 U/L (17-59); BILIRUBIN,TOTAL 1.6 mg/dL (0.2-1.3); BLOOD UREA NITROGEN 5 mg/dL (9-20); CARBON DIOXIDE 22 mmol/L (22-30); GFR AFRICAN-AMERICAN > 60; TOTAL PROTEIN 7.8 g/dL (6.3-8.3)
[2017-05-12 16:17] LABS: ALB/GLOB RATIO 0.9 (1.0-2.1); ALCOHOL SERUM 142 mg/dl (0-10); ALT/SGPT 43 U/L (21-72); GLUCOSE,RANDOM 122 mg/dL (75-110); PHOSPHOROUS 3.2 mg/dL (2.5-4.5)
[2017-05-12 16:18] LABS: MAGNESIUM 1.4 mg/dL (1.6-2.3)
--- NOTE | 2017-05-12 17:35 | RAD ---
HISTORY: chest pain COMPARISON: Chest x-ray performed 04/25/17 TECHNIQUE: Chest, one view. FINDINGS: LUNGS: No significant interval change appreciated. Thin walled large left apical bulla re-identified. Please note that chest x-ray has limited sensitivity for the detection of pulmonary masses. PLEURA: No significant pleural effusion identified. No definite pneumothorax . CARDIOVASCULAR: The cardiomediastinal silhouette appears within normal limits of size. OSSEOUS STRUCTURES: No acute osseous abnormality identified. VISUALIZED UPPER ABDOMEN: Unremarkable. OTHER FINDINGS: None. IMPRESSION: No significant interval change appreciated. Thin walled large left apical bulla re-identified.
[2017-05-12 17:55] LABS: BASOPHIL 2 % (0-2); EOSINOPHIL 3 % (0-4); TOTAL CELLS COUNTED 100
[2017-05-12 17:56] LABS: NEUTROPHIL 61 % (50-75)
--- NOTE | 2017-05-12 18:00 | C.PDOC ---
History Of Present Illness <Tiarra Vasquez - Last Filed: 05/12/17 19:18> <MurrayJanet - Last Filed: 05/12/17 20:25> 42 y/o male w/PMHx of alcohol abuse, sz ds, gastritis, hx of cirrhosis, chronic anemia and hx of previous blood transfusion ( last 2014), sent to emergency department by PMD for evaluation of low hemoglobin of 6.2 found today during F/ U visit. At present time, pt appears in mild alcohol intoxication, admits ' was drinking yesterday". Otherwise, pt denies headache, dizziness, vertigo, weakness , chest pain, SOB, palpitation, denies abd. pain, vomiting, hematemesis, diarrhea, melena, hematuria, or any other complaints. (Tiarra Vasquez) History Per: Patient History/Exam Limitations: no limitations Severity: Mild Reports Recently: Treated By A Physician Recent travel outside of the [place]: No <Tiarra Vasquez - Last Filed: 05/12/17 19:18> <MurrayJanet - Last Filed: 05/12/17 20:25> Time Seen by Provider: 05/12/17 14:49 Chief Complaint (Nursing): Medical Clearance Past Medical History Reviewed: Historical Data, Nursing Documentation, Vital Signs - Medical History PMH: Anemia, Gastritis (+ H. PYLORII), Gastrointestinal Ulcer, HTN (PORTAL), Seizures Surgical History: Endoscopy Family History: States: Unknown Family Hx - Social History Hx Tobacco Use: No Hx Alcohol Use: Yes Hx Substance Use: No - Immunization History Hx Tetanus Toxoid Vaccination: No Hx Influenza Vaccination: No Hx Pneumococcal Vaccination: No <Tiarra Vasquez - Last Filed: 05/12/17 19:18> Review Of Systems Except As Marked, All Systems Reviewed And Found Negative. Constitutional: Negative for: Fever, Chills Cardiovascular: Negative for: Chest Pain Respiratory: Negative for: Cough, Shortness of Breath Gastrointestinal: Negative for: Nausea, Vomiting, Abdominal Pain Genitourinary: Negative for: Hematuria Neurological: Negative for: Weakness, Headache, Dizziness <Tiarra Vasquez - Last Filed: 05/12/17 19:18> Physical Exam - Physical Exam Appears: Well, Non-toxic, No Acute Distress Skin: Warm, Dry, No Rash Head: Atraumatic, Normacephalic Eye(s): bilateral: PERRL Nose: No Flaring Oral Mucosa: Moist, Other ((+) alcohol odor) Tongue: Normal Appearing Throat: No Drooling Neck: Normal, Normal ROM, Supple Chest: Symmetrical Cardiovascular: Rhythm Regular Respiratory: No Decreased Breath Sounds, No Accessory Muscle Use, No Rales, No Rhonchi, No Stridor, No Wheezing Gastrointestinal/Abdominal: Soft, No Tenderness, No Distention, No Guarding, No Rebound Back: No CVA Tenderness Extremity: Normal ROM, No Pedal Edema, No Deformity Extremity: Bilateral: Atraumatic Neurological/Psych: Oriented x3, Normal Speech, Normal Cognition <Tiarra Vasquez - Last Filed: 05/12/17 19:18> ED Course And Treatment - Laboratory Results Result Diagrams: 05/12/17 15:53 05/12/17 15:53 O2 Sat by Pulse Oximetry: 98 (room air) Pulse Ox Interpretation: Normal <Tiarra Vasquez - Last Filed: 05/12/17 19:18> - Laboratory Results Result Diagrams: 05/12/17 15:53 05/12/17 15:53 <Janet Gao - Last Filed: 05/12/17 20:25> ED OBSERVATION Date of observation admission: 05/12/17 Time of observation admission: 15:50 <Tiarra Vasquez - Last Filed: 05/12/17 19:18> Discharge: Yes <Janet Gao - Last Filed: 05/12/17 20:25> - Observation admission statement Patient is being placed in observation because:: Acute anemia, blood transfusion (Tiarra Vasquez) - Goals of Observation Goals of observation are:: diagnostics, tx, re-evaluation (Tiarra Vasquez) - Progress Note Progress Note: 05/12/17 At 16:20, case discussed with PMD and reports hx of chronic anemia " see in office to monitor H/H and today was low". Pt is asymptomatic. Previous ED visits review, last one was on 04/25/17 when pt was admitted w/Dx: Alcohol withdrawal syndrome and blood work review. Pt H/H level appears at baseline with today's results. Case discussed with ED attending and transfusion of 1UPRBC recommend. At 19:18, discussed with [facility] transfusion, re-eval, dispo- pending. (Tiarra Vasquez) 05/12/17 20:24 TRANSFUSION COMPLETE. PT REQUESTING DC HOME (Janet Gao) Disposition <Tiarra Vasquez - Last Filed: 05/12/17 19:18> Counseled Patient/Family Regarding: Studies Performed, Diagnosis, Need For Followup - Disposition Disposition Time: 20:25 <Janet Gao - Last Filed: 05/12/17 20:25> - Disposition Disposition: HOME/ ROUTINE Condition: IMPROVED - Clinical Impression Clinical Impression: Anemia - PA / RIVET TOSSER / Resident Statement MD/DO has reviewed & agrees with the documentation as recorded. - Scribe Statement The provider has reviewed the documentation as recorded by the Scribe <Tiarra Vasquez - Last Filed: 05/12/17 19:18> <MurrayJanet - Last Filed: 05/12/17 20:25> - Scribe Statement Addy Carrington All medical record entries made by the Scribe were at my direction and personally dictated by me. I have reviewed the chart and agree that the record accurately reflects my personal performance of the history, physical exam, medical decision making, and the department course for this patient. I have also personally directed, reviewed, and agree with the discharge instructions and disposition. (Tiarra Vasquez)
[2017-05-12 19:23] VITALS: RESP 18
[2017-05-12 20:25] VITALS: BP 107/59; PULSE 78; TEMP 98.3; O2SAT 99
== END 2017-05-12 20:25 | disposition home or self-care (01) ==
LOC: C.ER 14:07 → C.9OBSV 15:50
PROVIDERS: ADMIT Emergency Medicine; ATTEND Emergency Medicine
DX: F10.120 Alcohol abuse with intoxication, uncomplicated (principal); Y90.6 Blood alcohol level of 120-199 mg/100 ml; D64.9 Anemia, unspecified; I10 Essential (primary) hypertension
CPT/HCPCS: 36430; 71010; 80053; 80320; 83735; 84100; 85025; 85610; 85730; 86850; 86900; 86920; 96360; 99285; G0378; J7040; P9051

== ENCOUNTER 2017-06-08 18:48 | Emergency (ER) | payer MEDICAID ==
[2017-06-08 18:49] VITALS: BMI 19.5
[2017-06-08] MEDS ORDERED: Sodium Chloride 0.9% 500 ML IV ONE (19:25)
[2017-06-08] MEDS ORDERED: Sodium Chloride 0.9% 1,000 ML IV ONE (19:25)
--- NOTE | 2017-06-08 19:27 | C.PDOC ---
History Of Present Illness 42 year old male with a Hx of chronic alcoholism who presents to the ER with a complaint of abdominal pain and 2 episodes of vomiting since this afternoon. Denies dysuria or diarrhea. Chief Complaint (Nursing): Abdominal Pain History Per: Patient History/Exam Limitations: no limitations Onset/Duration Of Symptoms: Hrs Current Symptoms Are (Timing): Still Present Location Of Pain/Discomfort: Epigastric Radiation Of Pain To:: None Quality Of Discomfort: Unable To Describe Associated Symptoms: Vomiting. denies: Fever, Chills, Diarrhea, Urinary Symptoms Exacerbating Factors: None Alleviating Factors: None Recent travel outside of the [place]: No Past Medical History Reviewed: Historical Data, Nursing Documentation, Vital Signs Vital Signs: Last Vital Signs Temp 97.8 F 06/08/17 18:58 Pulse 138 H 06/08/17 18:58 Resp 18 06/08/17 18:58 BP 83/55 L 06/08/17 18:58 Pulse Ox 100 06/08/17 21:15 - Medical History PMH: Anemia, Gastritis (+ H. PYLORII), Gastrointestinal Ulcer, HTN (PORTAL), Seizures Surgical History: Endoscopy - [facility] Procedures ALCOHOL DETOXIFICATION (10/03/14) DETOXIFICATION SERVICES FOR SUBSTANCE ABUSE TREATMENT (10/16/16) ESOPHAGOGASTRODUODENOSCOPY [EGD] W/CLOSED BIOPSY (08/10/14) INDIV COOPERATIVE MANAGER FOR SUBSTANCE ABUSE TREATMENT, BEHAVIORAL (08/05/15) INDIV PSYCHOTHERAPY FOR SUBSTANCE ABUSE TREATMENT, SUPPORT (04/25/17) INSERTION OF ENDOTRACHEAL AIRWAY INTO TRACHEA, VIA OPENING (08/05/15) INSPECTION OF UPPER INTESTINAL TRACT, ENDO (08/05/15) MEDS MGMT FOR SUBSTANCE ABUSE TREATMENT, OTH REPL MED (04/25/17) OTHER ENDOSCOPY OF SM INTEST (11/19/14) PACKED CELL TRANSFUSION (04/04/15) PLATELET TRANSFUSION (11/19/14) RESPIRATORY VENTILATION, 24-96 CONSECUTIVE HOURS (08/05/15) TRANSFUSE NONAUT PLATELETS IN PERIPH VEIN, PERC (08/05/15) TRANSFUSE NONAUT RED BLOOD CELLS IN PERIPH VEIN, PERC (08/05/15) VACCINATION NEC (03/14/14) Family History: States: Unknown Family Hx - Social History Hx Tobacco Use: No Hx Alcohol Use: Yes Hx Substance Use: No - Immunization History Hx Tetanus Toxoid Vaccination: No Hx Influenza Vaccination: No Hx Pneumococcal Vaccination: No Review Of Systems Constitutional: Negative for: Fever, Chills Gastrointestinal: Positive for: Vomiting, Abdominal Pain. Negative for: Diarrhea Genitourinary: Negative for: Dysuria, Incontinence, Hematuria Skin: Negative for: Rash Neurological: Negative for: Weakness, Numbness Physical Exam - Physical Exam Appears: Non-toxic, No Acute Distress Skin: Normal Color, Warm, Dry Head: Atraumatic, Normacephalic Oral Mucosa: Moist Chest: Symmetrical, No Tenderness Cardiovascular: Rhythm Regular, No Murmur Respiratory: Normal Breath Sounds, No Rales, No Rhonchi, No Wheezing Gastrointestinal/Abdominal: Soft, Tenderness (Epigastric), No Guarding, No Rebound Neurological/Psych: Oriented x3, Normal Speech, Normal Cognition ED Course And Treatment - Laboratory Results Result Diagrams: 06/08/17 19:42 06/08/17 19:42 O2 Sat by Pulse Oximetry: 100 (Room air) Pulse Ox Interpretation: Normal Progress Note: Blood work and urinalysis ordered. Zofran, toradol, and IV fluids administered. Disposition Counseled Patient/Family Regarding: Diagnosis - Disposition Referrals: [facility] [Outside] Disposition: HOME/ ROUTINE Disposition Time: 21:12 Condition: STABLE Prescriptions: Famotidine [Pepcid] 20 mg PO BID #30 tab Ondansetron ODT [Zofran ODT] 1 odt PO BID PRN #6 odt PRN Reason: Nausea/Vomiting Sucralfate [Carafate] 1 gm PO BID #20 tab Instructions: Gastritis (DC), Abuse of Alcohol (ED) Forms: [facility] (Grenadian) - POA Present On Arrival: None - Clinical Impression Clinical Impression: Alcoholic gastritis, Alcohol abuse - Scribe Statement The provider has reviewed the documentation as recorded by the Robertibfernando Dawson All medical record entries made by the Robertibfernando were at my direction and personally dictated by me. I have reviewed the chart and agree that the record accurately reflects my personal performance of the history, physical exam, medical decision making, and the department course for this patient. I have also personally directed, reviewed, and agree with the discharge instructions and disposition.
[2017-06-08 19:46] LABS: BASO % 0.7 % (0.0-2.0); EOS # 0.1 K/uL (0.0-0.7); EOS % 1.6 % (0.0-4.0); HEMATOCRIT 23.7 % (35.0-51.0); LYMPH # 0.6 K/uL (1.0-4.3); LYMPH % 12.6 % (20.0-40.0); MEAN CELL VOLUME 78.2 fL (80.0-94.0); MEAN CORPUSCULAR HEMOGLOBIN 25.1 pg (27.0-31.0); MEAN CORPUSCULAR HGB CONC 32.1 g/dL (33.0-37.0); MEAN PLATELET VOLUME 8.4 fL (7.2-11.7); MONO # 0.4 K/uL (0.0-0.8); MONO % 7.8 % (0.0-10.0); NRBC % 0.1 % (0.0-2.0); RED CELL DISTRIBUTION WIDTH 24.1 % (11.5-14.5); WHITE BLOOD COUNT 5.1 K/uL (4.8-10.8)
[2017-06-08 20:06] LABS: CHLORIDE 95 mmol/L (98-107); POTASSIUM 3.6 mmol/L (3.6-5.2); SODIUM 134 mmol/L (132-148)
[2017-06-08 20:08] LABS: CARBON DIOXIDE 20 mmol/L (22-30); GFR AFRICAN-AMERICAN > 60
[2017-06-08 20:09] LABS: ALB/GLOB RATIO 0.9 (1.0-2.1); ALKALINE PHOSPHATASE 87 U/L (38-126); ALT/SGPT 32 U/L (21-72); AST/SGOT 94 U/L (17-59); BILIRUBIN,TOTAL 2.7 mg/dL (0.2-1.3); BLOOD UREA NITROGEN 5 mg/dL (9-20); CALCIUM 8.5 mg/dl (8.6-10.4); GLUCOSE,RANDOM 146 mg/dL (75-110); TOTAL PROTEIN 7.5 g/dL (6.3-8.3)
[2017-06-08 21:29] VITALS: BP 95/60; PULSE 115; RESP 16; TEMP 98; O2SAT 98
== END 2017-06-08 21:29 | disposition home or self-care (01) ==
LOC: C.ER 18:48
DX: K29.20 Alcoholic gastritis without bleeding (principal); F10.10 Alcohol abuse, uncomplicated; Y90.9 Presence of alcohol in blood, level not specified
CPT/HCPCS: 80053; 83690; 85025; 96374; 96375; 99284; J1885; J2405; J7040

== ENCOUNTER 2017-07-16 09:33 | Inpatient (IN) | payer MEDICAID ==
[2017-07-16 09:33] VITALS: BMI 19.5
[2017-07-16] MEDS ORDERED: Sodium Chloride 0.9% 1,000 ML IV ONE ×2 (09:59→11:39)
[2017-07-16] MEDS ORDERED: Sodium Chloride 0.9% 1,000 ML ONE (10:06)
[2017-07-16 10:18] LABS: BASO # 0.1 K/uL (0.0-0.2); BASO % 0.8 % (0.0-2.0); EOS % 0.5 % (0.0-4.0); HEMATOCRIT 14.4 % (35.0-51.0); LYMPH # 2.1 K/uL (1.0-4.3); LYMPH % 21.3 % (20.0-40.0); MEAN CORPUSCULAR HEMOGLOBIN 23.4 pg (27.0-31.0); MEAN CORPUSCULAR HGB CONC 31.2 g/dL (33.0-37.0); MEAN PLATELET VOLUME 8.6 fL (7.2-11.7); MONO # 0.9 K/uL (0.0-0.8); MONO % 9.2 % (0.0-10.0); NRBC % 0.2 % (0.0-2.0); RED CELL DISTRIBUTION WIDTH 27.1 % (11.5-14.5)
[2017-07-16 10:27] LABS: WHITE BLOOD COUNT 9.9 K/uL (4.8-10.8)
[2017-07-16 10:33] LABS: CHLORIDE 93 mmol/L (98-107); SODIUM 132 mmol/L (132-148)
[2017-07-16 10:34] LABS: POTASSIUM 4.4 mmol/L (3.6-5.2)
--- NOTE | 2017-07-16 10:35 | C.PDOC ---
Time Seen by Provider: 07/16/17 09:49 Chief Complaint (Nursing): Abdominal Pain Past Medical History Vital Signs: Last Vital Signs Temp 98.5 F 07/16/17 09:38 Pulse 121 H 07/16/17 09:38 Resp 20 07/16/17 09:38 BP 109/71 07/16/17 09:38 Pulse Ox 100 07/16/17 09:38 - Medical History PMH: Anemia, Gastritis (+ H. PYLORII), Gastrointestinal Ulcer, HTN (PORTAL), Seizures Denies: Fractures, Chronic Kidney Disease Surgical History: Endoscopy - [facility] Procedures ALCOHOL DETOXIFICATION (10/03/14) DETOXIFICATION SERVICES FOR SUBSTANCE ABUSE TREATMENT (10/16/16) ESOPHAGOGASTRODUODENOSCOPY [EGD] W/CLOSED BIOPSY (08/10/14) INDIV VISION REHABILITATION THERAPIST FOR SUBSTANCE ABUSE TREATMENT, BEHAVIORAL (08/05/15) INDIV PSYCHOTHERAPY FOR SUBSTANCE ABUSE TREATMENT, SUPPORT (04/25/17) INSERTION OF ENDOTRACHEAL AIRWAY INTO TRACHEA, VIA OPENING (08/05/15) INSPECTION OF UPPER INTESTINAL TRACT, ENDO (08/05/15) MEDS MGMT FOR SUBSTANCE ABUSE TREATMENT, OTH REPL MED (04/25/17) OTHER ENDOSCOPY OF SM INTEST (11/19/14) PACKED CELL TRANSFUSION (04/04/15) PLATELET TRANSFUSION (11/19/14) RESPIRATORY VENTILATION, 24-96 CONSECUTIVE HOURS (08/05/15) TRANSFUSE NONAUT PLATELETS IN PERIPH VEIN, PERC (08/05/15) TRANSFUSE NONAUT RED BLOOD CELLS IN PERIPH VEIN, PERC (08/05/15) VACCINATION NEC (03/14/14) Family History: States: Unknown Family Hx - Social History Hx Tobacco Use: No Hx Alcohol Use: Yes Hx Substance Use: No - Immunization History Hx Tetanus Toxoid Vaccination: No Hx Influenza Vaccination: No Hx Pneumococcal Vaccination: No ED Course And Treatment - Laboratory Results Result Diagrams: 07/16/17 10:05 07/16/17 10:05 O2 Sat by Pulse Oximetry: 100 Disposition - Disposition Forms: [employer] ([employer]) Connect (Hebrew)
[2017-07-16 10:36] LABS: ALB/GLOB RATIO 0.8 (1.0-2.1); ALKALINE PHOSPHATASE 82 U/L (38-126); ALT/SGPT 403 U/L (21-72); BILIRUBIN,TOTAL 2.2 mg/dL (0.2-1.3); BLOOD UREA NITROGEN 16 mg/dL (9-20); CALCIUM 8.3 mg/dl (8.6-10.4); CARBON DIOXIDE 19 mmol/L (22-30); GFR AFRICAN-AMERICAN > 60; GLUCOSE,RANDOM 91 mg/dL (75-110); TOTAL PROTEIN 7.7 g/dL (6.3-8.3)
--- NOTE | 2017-07-16 10:36 | C.PDOC ---
History Of Present Illness 42 y/o male, with PMHx of alcohol abuse, presents to ED for evaluation of diffuse abdominal pain associated with vomiting since yesterday. Pt also complaints of dizziness and states he fell last night. Otherwise, denies any diarrhea, fever, chills, or headache. Time Seen by Provider: 07/16/17 09:49 Chief Complaint (Nursing): Abdominal Pain History Per: Patient History/Exam Limitations: no limitations Onset/Duration Of Symptoms: Days (1) Current Symptoms Are (Timing): Still Present Location Of Pain/Discomfort: Diffuse Radiation Of Pain To:: None Quality Of Discomfort: "Pain" Associated Symptoms: Nausea, Vomiting. denies: Fever, Chills, Diarrhea, Loss Of Appetite, Back Pain, Chest Pain, Constipation, Urinary Symptoms Exacerbating Factors: None Alleviating Factors: None Recent travel outside of the [place]: No Additional History Per: Patient Past Medical History Reviewed: Historical Data, Nursing Documentation, Vital Signs Vital Signs: Last Vital Signs Temp 98.5 F 07/16/17 09:38 Pulse 120 H 07/16/17 11:24 Resp 16 07/16/17 11:24 BP 100/57 L 07/16/17 11:24 Pulse Ox 100 07/16/17 11:24 - Medical History PMH: Anemia, Gastritis (+ H. PYLORII), Gastrointestinal Ulcer, HTN (PORTAL), Seizures Denies: Fractures, Chronic Kidney Disease Surgical History: Endoscopy - [facility] Procedures ALCOHOL DETOXIFICATION (10/03/14) DETOXIFICATION SERVICES FOR SUBSTANCE ABUSE TREATMENT (10/16/16) ESOPHAGOGASTRODUODENOSCOPY [EGD] W/CLOSED BIOPSY (08/10/14) INDIV PACKING AND WRAPPING SUPERVISOR FOR SUBSTANCE ABUSE TREATMENT, BEHAVIORAL (08/05/15) INDIV PSYCHOTHERAPY FOR SUBSTANCE ABUSE TREATMENT, SUPPORT (04/25/17) INSERTION OF ENDOTRACHEAL AIRWAY INTO TRACHEA, VIA OPENING (08/05/15) INSPECTION OF UPPER INTESTINAL TRACT, ENDO (08/05/15) MEDS MGMT FOR SUBSTANCE ABUSE TREATMENT, OTH REPL MED (04/25/17) OTHER ENDOSCOPY OF SM INTEST (11/19/14) PACKED CELL TRANSFUSION (04/04/15) PLATELET TRANSFUSION (11/19/14) RESPIRATORY VENTILATION, 24-96 CONSECUTIVE HOURS (08/05/15) TRANSFUSE NONAUT PLATELETS IN PERIPH VEIN, PERC (08/05/15) TRANSFUSE NONAUT RED BLOOD CELLS IN PERIPH VEIN, PERC (08/05/15) VACCINATION NEC (03/14/14) Family History: States: Unknown Family Hx - Social History Hx Tobacco Use: No Hx Alcohol Use: Yes Hx Substance Use: No - Immunization History Hx Tetanus Toxoid Vaccination: No Hx Influenza Vaccination: No Hx Pneumococcal Vaccination: No Review Of Systems Except As Marked, All Systems Reviewed And Found Negative. Constitutional: Negative for: Fever, Chills Cardiovascular: Negative for: Chest Pain, Palpitations Respiratory: Negative for: Cough, Shortness of Breath Gastrointestinal: Positive for: Nausea, Vomiting, Abdominal Pain. Negative for : Diarrhea, Constipation Genitourinary: Negative for: Dysuria, Frequency, Hematuria Musculoskeletal: Negative for: Back Pain Neurological: Positive for: Dizziness. Negative for: Weakness, Numbness, Headache Physical Exam - Physical Exam Appears: Non-toxic, No Acute Distress Skin: Normal Color, Warm, Dry Head: Atraumatic, Normacephalic Eye(s): bilateral: Normal Inspection, PERRL, EOMI Oral Mucosa: Moist Neck: Supple Chest: Symmetrical Cardiovascular: Rhythm Regular, No Murmur Respiratory: Normal Breath Sounds, No Rales, No Rhonchi, No Wheezing Gastrointestinal/Abdominal: Soft, No Tenderness, No Guarding, No Rebound Extremity: Normal ROM, No Deformity Neurological/Psych: Oriented x3, Normal Speech ED Course And Treatment - Laboratory Results Result Diagrams: 07/16/17 10:05 07/16/17 10:05 Lab Interpretation: Abnormal ECG: Interpreted By Ak ECG Rhythm: Sinus Tachycardia Rate From EC O2 Sat by Pulse Oximetry: 100 (on RA) Pulse Ox Interpretation: Normal Progress Note: Blood work, UA, EKG ordered and reviewed. Patient was given Zofran, Protonix inj, and protonics drip and IV fluids x 2 liters. 2 Unit PC ordered. Case discussed and patient evaluated by Dr Hoyos the ICU attending and accepts to ICU Reassessment Condition: Unchanged - Physician Consult Information Physician Contacted: Hannah Leroy Outcome Of Conversation: ICU admission Disposition Discussed With : Hannah Leroy Doctor Will See Patient In The: Hospital - Disposition Disposition: HOSPITALIZED Disposition Time: 12:00 Condition: GUARDED - POA Present On Arrival: None - Clinical Impression Clinical Impression: Anemia, Vomiting, Gastrointestinal hemorrhage, Acute upper GI bleed - PA / SALES RECRUITER / Resident Statement MD/DO has reviewed & agrees with the documentation as recorded. - Scribe Statement The provider has reviewed the documentation as recorded by the Robertibfernando Leroy All medical record entries made by the Robertibfernando were at my direction and personally dictated by me. I have reviewed the chart and agree that the record accurately reflects my personal performance of the history, physical exam, medical decision making, and the department course for this patient. I have also personally directed, reviewed, and agree with the discharge instructions and disposition. Decision To Admit - Pt Status Changed To: Hospital Disposition Of: Inpatient - Admit Certification Admit to Inpatient:: After my assessment, the patient will require hospitalization for at least two midnights. This is because of the severity of symptoms shown, intensity of services needed, and/or the medical risk in this patient being treated as an outpatient. - InPatient: Physician Admission Certification:: Severe anemia. GI Bleeding - . Bed Request Type: ICU Patient Diagnosis: Anemia, Vomiting, Gastrointestinal hemorrhage
[2017-07-16 10:48] LABS: AST/SGOT 1411 U/L (17-59)
[2017-07-16 10:51] LABS: INR 1.7
[2017-07-16] MEDS: Pantoprazole 80 MG in Sodium Chloride 0.9% 100 ML IVP SCH ×2 (11:38→21:34)
--- NOTE | 2017-07-16 12:15 | CP.PCM.CON ---
<Soco Alonso - Last Filed: 07/16/17 19:57> History of Present Illness - History of Present Illness History of Present Illness: ICU consult note HPI: Patient is a 42 year old male with past medical history of GERD, rosa torrez tear, Gastroesophageal varices with banding, alcoholic liver disease, anemia who presents to the ED with complaints of 2-3 episodes of black stool and one episode of hematemesis that started yesterday. Patient stated that he has been experiencing nausea and vomiting since yesterday. Patient admits to SOB , dizziness, headache but denies SOB, palpitations, chest pain, fever, chills, hematuria. Patient was noted to have a hemoglobin of 4.5 on admission. Patient' s last endoscopy (01/06/17), which showed diffuse severe inflammation characterized by erosions was found in the entire examined stomach. PMHx: Alcoholic liver cirrhosis, h/o rosa torrez tear, esophageal varices s/p banding on 12/2013, gastritis, Alcohol dependency, GERD, Anemia PSHx: several endoscopies in the past, most recent 04/26/14 FMHx: mother: DM, Denies drug dependency, PR, CVA, HTN Social Hx: denies tobacco use, Drinks 2-16 oz beer a day for 20 years. Denies hard liquor or wine. Denies illicit drug abuse. and lives with his . MEDs: Refer to chart Allergies: NKDA Review of Systems - Constitutional Constitutional: Fatigue, Headache, Weakness. absent: Chills, Fever, Frequent Falls - EENT Eyes: absent: Blurred Vision, Change in Vision Ears: Dizziness - Cardiovascular Cardiovascular: Dyspnea. absent: Chest Pain, Diaphoresis, Palpitations, Syncope - Respiratory Respiratory: Dyspnea. absent: Wheezing, Pain on Inspiration - Gastrointestinal Gastrointestinal: Hematemesis, Nausea, Vomiting. absent: Abdominal Pain, Diarrhea - Genitourinary Genitourinary: absent: Dysuria, Flank Pain, Hematuria - Musculoskeletal Musculoskeletal: absent: Numbness, Tingling - Neurological Neurological: Headaches, Weakness. absent: Syncope, Tingling - Psychiatric Psychiatric: absent: Anxiety - Endocrine Endocrine: Fatigue. absent: Palpitations Past Patient History - Infectious Disease Hx of Infectious Diseases: None - Past Medical History & Family History Past Medical History?: Yes - Past Social History Smoking Status: Never Smoked - CARDIAC Hx Hypertension: Yes (PORTAL) - PULMONARY Hx Respiratory Disorders: No - NEUROLOGICAL Hx Seizures: Yes - HEENT Hx HEENT Problems: No - RENAL Hx Chronic Kidney Disease: No - ENDOCRINE/METABOLIC Hx Endocrine Disorders: No - HEMATOLOGICAL/ONCOLOGICAL Hx Anemia: Yes - INTEGUMENTARY Hx Dermatological Problems: No - MUSCULOSKELETAL/RHEUMATOLOGICAL Hx Fractures: No - GASTROINTESTINAL Hx Gastritis: Yes (+ H. PYLORII) - GENITOURINARY/GYNECOLOGICAL Hx Genitourinary Disorders: No - PSYCHIATRIC Hx Substance Use: No - SURGICAL HISTORY Hx Surgeries: No - ANESTHESIA Hx Anesthesia: Yes Hx Anesthesia Reactions: No Meds Allergies/Adverse Reactions: Allergies Allergy/AdvReac Type Severity Reaction Status Date / Time No Known Allergies Allergy Verified 07/16/17 09:42 - Medications Medications: Current Medications Pantoprazole Sodium 80 mg/ (Sodium Chloride) 100 mls @ 10 mls/hr IVP .Q10H SYLVIA PRN Reason: 8 MG/HR Last Admin: 07/16/17 11:38 Dose: 10 mls/hr Sodium Chloride (Sodium Chloride 0.9%) 1,000 mls @ 1,000 mls/hr IV .Q1H ONE Stop: 07/16/17 12:38 Last Admin: 07/16/17 11:52 Dose: 1,000 mls/hr Physical Exam - Constitutional Appears: Well, Non-toxic - Head Exam Head Exam: ATRAUMATIC, NORMAL INSPECTION - Eye Exam Eye Exam: EOMI, Scleral icterus - Respiratory Exam Respiratory Exam: Clear to Auscultation Bilateral, NORMAL BREATHING PATTERN - Cardiovascular Exam Cardiovascular Exam: REGULAR RHYTHM, +S1, +S2 - GI/Abdominal Exam GI & Abdominal Exam: Normal Bowel Sounds, Soft. absent: Tenderness - Extremities Exam Extremities exam: Positive for: normal inspection. Negative for: calf tenderness, pedal edema, tenderness - Skin Skin Exam: Normal Color, Warm Results - Vital Signs Recent Vital Signs: Last Vital Signs Temp 98.5 F 07/16/17 09:38 Pulse 120 H 07/16/17 11:24 Resp 16 07/16/17 11:24 BP 100/57 L 07/16/17 11:24 Pulse Ox 100 07/16/17 12:06 - Labs Result Diagrams: 07/16/17 18:20 07/16/17 18:20 Labs: Laboratory Results - last 24 hr 07/16/17 07/16/17 07/16/17 10:05 10:05 10:33 WBC 9.9 D RBC 1.91 L Hgb 4.5 L* D Hct 14.4 L MCV 75.0 L D MCH 23.4 L MCHC 31.2 L RDW 27.1 H Plt Count 136 MPV 8.6 Neut % (Auto) 68.2 Lymph % (Auto) 21.3 [place] % (Auto) 9.2 Eos % (Auto) 0.5 Baso % (Auto) 0.8 Neut # 6.8 Lymph # 2.1 [place] # 0.9 H Eos # 0.0 Baso # 0.1 Differential Comment PT INR APTT Sodium 132 Potassium 4.4 Chloride 93 L Carbon Dioxide 19 L Anion Gap 24 H BUN 16 Creatinine 0.8 Est GFR ( Amer) > 60 Est GFR (Non-Af Amer) > 60 Random Glucose 91 Calcium 8.3 L Total Bilirubin 2.2 H AST 1411 H ALT 403 H D Alkaline Phosphatase 82 Ammonia Total Protein 7.7 Albumin 3.3 L Globulin 4.3 H Albumin/Globulin Ratio 0.8 L Lipase 169 Blood Type O POSITIVE Antibody Screen Negative 07/16/17 07/16/17 10:33 10:45 WBC RBC Hgb Hct MCV MCH MCHC RDW Plt Count MPV Neut % (Auto) Lymph % (Auto) [place] % (Auto) Eos % (Auto) Baso % (Auto) Neut # Lymph # [place] # Eos # Baso # Differential Comment PT 19.5 H INR 1.7 APTT 33 Sodium Potassium Chloride Carbon Dioxide Anion Gap BUN Creatinine Est GFR ( Amer) Est GFR (Non-Af Amer) Random Glucose Calcium Total Bilirubin AST ALT Alkaline Phosphatase Ammonia 13 D Total Protein Albumin Globulin Albumin/Globulin Ratio Lipase Blood Type Antibody Screen Assessment & Plan - Assessment and Plan (Free Text) Assessment: Patient is a 42 year old male with past medical history of GERD, rosa torrez tear, Gastroesophageal varices with banding, alcoholic liver disease, anemia who presents to the ED with complaints of 2-3 episodes of black stool and one episode of hematemesis that started yesterday Plan: Neuro: Alert, awake and oriented Cardio: No acute issues Pulm: No acute issues GI: GI Bleed, Hx of gastroesophageal varices and transaminitis 2/2 alcoholic liver disease GI consult, Dr. Martel----> Help appreciated * F/u recommendation Medication: Octreotide 1,250mcg in NS 250ml@ 25mcg/hr Protonix 80mg IVP 8mg/hr NS @ 150mls/hr Heme: Anemia and thrombocytopenia H/H: 4.5/14.4 Prophylaxis DVT: SCDs and anticoagulation contraindication due to GI bleed GI: Protonix 80mg IVP 8mg/hr Zofran 4mg PO IVP Q8H <NohemiAyo breaux M - Last Filed: 07/20/17 09:45> Meds - Medications Medications: Current Medications Folic Acid (Folic Acid) 1 mg PO DAILY [facility] Last Admin: 07/19/17 09:28 Dose: 1 mg Ceftriaxone Sodium (Rocephin Iv 1 Gm Duplex) 50 mls @ 100 mls/hr IVPB DAILY [facility] Last Admin: 07/19/17 09:52 Dose: 100 mls/hr Lorazepam (Ativan) 1 mg PO Q6H PRN PRN Reason: EtOH Withdrawal Ondansetron HCl (Zofran Inj) 4 mg IVP Q8H [facility] Last Admin: 07/20/17 05:25 Dose: 4 mg Pantoprazole Sodium (Protonix Ec Tab) 40 mg PO DAILY [facility] Last Admin: 07/19/17 09:29 Dose: 40 mg Propranolol HCl (Inderal) 5 mg PO BID [facility] Last Admin: 07/19/17 17:43 Dose: 5 mg Thiamine HCl (Vitamin B1 Tab) 100 mg PO DAILY [facility] Last Admin: 07/19/17 09:29 Dose: 100 mg Results - Vital Signs Recent Vital Signs: Last Vital Signs Temp 98.6 F 07/20/17 00:00 Pulse 72 07/20/17 00:00 Resp 20 07/20/17 00:00 BP 146/87 07/20/17 00:00 Pulse Ox 96 07/20/17 00:00 - Labs Result Diagrams: 07/19/17 06:25 07/19/17 06:25 Attending/Attestation - Attestation I have personally seen and examined this patient.: Yes I have fully participated in the care of the patient.: Yes I have reviewed all pertinent clinical information: Yes Notes (Text): 07/16/17 Today: Friday, July 16, 2017 The Patient was seen and examined at the bedside, Medical records reviewed, and management issues were discussed and formulated with the house staff. I have reviewed all the relevant clinical, laboratory, hemodynamic, radiographic data and medications Events reviewed Pain issues, skin care, head of the bed elevation, glycemic control were addressed. 42 year old male with history of ETOH abuse and suspected cirrhosis Who presents to ER with complaint of hematemesis x 2 days Admitted with Acute upper GI bleeding, Transaminitis, acute alcohol hepatitis NPO, IV Hydrations PRBC transfusion antibiotic prophylaxis PPI and octreotide infusion GI consoultation I concur with resident's assessment and plan of care as transcribed in Dr. Alonso note. Total critical care time 48 minutes
--- NOTE | 2017-07-16 15:06 | CP.PCM.CON ---
<Thalia Solis - Last Filed: 07/16/17 17:22> History of Present Illness - History of Present Illness History of Present Illness: GI Fellow PGY4 Consult Note This is a 41yM with PMHx significant for cirrhosis 2/2 EtOH abuse, Deborah Torrez tears, esophageal varices, EtOH withdrawal seizures who presents with hematemesis, nausea, vomiting and dark stool for 2 days. Pt reports vomiting every time he tries to eat or drink anything for 2 days with one episode of hematemesis yesterday and dark black stool for 2 days. Pt reports that his last drink was 2 days ago and usually drinks 2x24oz beers daily since the age of 16yr old. Denies hard liquor. Denies any hematochezia, abdominal distention or new skin lesions. Pt also reports taking Advil 2 tabs daily for one month due to right shoulder pain. Pt's last EGD was in December 2016: diffuse severe inflammation, erosions in stomach. Moderate gastric portal HTN, no ulcers or varices on exam. No prior colonoscopy. Per medical records, pt was just admitted to inpt psych for alcohol withdrawal and reported drinking 4-6x24oz beers. Pt was found to be anemic with low Hgb 4.5 and SBP 80-100s. Pt admitted to ICU for close observation. ROS: A 12pt ROS was obtained and was negative except as above. PmHx: As stated in HPI PsHx: EGD SHx: Lives with and young son, unemployed, drinks ETOH 2-4x24oz beers since age 16 FHx: Denies colon cancer Past Patient History - Infectious Disease Hx of Infectious Diseases: None - Past Medical History & Family History Past Medical History?: Yes - Past Social History Smoking Status: Never Smoked - CARDIAC Hx Hypertension: Yes (PORTAL) - PULMONARY Hx Respiratory Disorders: No - NEUROLOGICAL Hx Seizures: Yes - HEENT Hx HEENT Problems: No - RENAL Hx Chronic Kidney Disease: No - ENDOCRINE/METABOLIC Hx Endocrine Disorders: No - HEMATOLOGICAL/ONCOLOGICAL Hx Anemia: Yes - INTEGUMENTARY Hx Dermatological Problems: No - MUSCULOSKELETAL/RHEUMATOLOGICAL Hx Fractures: No - GASTROINTESTINAL Hx Gastritis: Yes (+ H. PYLORII) - GENITOURINARY/GYNECOLOGICAL Hx Genitourinary Disorders: No - PSYCHIATRIC Hx Substance Use: No - SURGICAL HISTORY Hx Surgeries: No - ANESTHESIA Hx Anesthesia: Yes Hx Anesthesia Reactions: No Meds Allergies/Adverse Reactions: Allergies Allergy/AdvReac Type Severity Reaction Status Date / Time No Known Allergies Allergy Verified 07/16/17 09:42 - Medications Medications: Current Medications Pantoprazole Sodium 80 mg/ (Sodium Chloride) 100 mls @ 10 mls/hr IVP .Q10H SYLVIA PRN Reason: 8 MG/HR Last Admin: 07/16/17 11:38 Dose: 10 mls/hr Octreotide Acetate 1,250 mcg/ (Sodium Chloride) 252.5 mls @ 5.05 mls/hr SC .Q24H SYLVIA; 25 MCG/HR PRN Reason: Protocol Physical Exam - Constitutional Appears: Unkempt - Head Exam Head Exam: ATRAUMATIC, NORMAL INSPECTION, NORMOCEPHALIC - Eye Exam Eye Exam: EOMI, Normal appearance, PERRL Pupil Exam: PERRL - ENT Exam ENT Exam: Mucous Membranes Dry, Mucous Membranes Moist - Neck Exam Neck exam: Positive for: Full Rom - Respiratory Exam Respiratory Exam: Clear to Auscultation Bilateral, NORMAL BREATHING PATTERN - Cardiovascular Exam Cardiovascular Exam: Tachycardia, +S1, +S2 - GI/Abdominal Exam GI & Abdominal Exam: Normal Bowel Sounds, Soft. absent: Organomegaly, Tenderness - Rectal Exam Rectal Exam: NORMAL INSPECTION. absent: Black Stool, Bloody Stool, Hemorrhoids , Fecal Impaction Additional comments: brown stool - Back Exam Back exam: NORMAL INSPECTION - Neurological Exam Neurological exam: Alert, Oriented x3 - Psychiatric Exam Psychiatric exam: Normal Affect, Normal Mood - Skin Skin Exam: Dry, Intact, Normal Color, Warm Results - Vital Signs Recent Vital Signs: Last Vital Signs Temp 98.7 F 07/16/17 14:37 Pulse 108 H 07/16/17 14:37 Resp 20 07/16/17 14:37 BP 83/50 L 07/16/17 14:37 Pulse Ox 100 07/16/17 12:15 - Labs Result Diagrams: 07/16/17 10:05 07/16/17 10:05 Labs: Laboratory Results - last 24 hr 07/16/17 07/16/17 07/16/17 10:05 10:05 10:33 WBC 9.9 D RBC 1.91 L Hgb 4.5 L* D Hct 14.4 L MCV 75.0 L D MCH 23.4 L MCHC 31.2 L RDW 27.1 H Plt Count 136 MPV 8.6 Neut % (Auto) 68.2 Lymph % (Auto) 21.3 [place] % (Auto) 9.2 Eos % (Auto) 0.5 Baso % (Auto) 0.8 Neut # 6.8 Lymph # 2.1 [place] # 0.9 H Eos # 0.0 Baso # 0.1 Differential Comment Smear Path Review PT INR APTT Sodium 132 Potassium 4.4 Chloride 93 L Carbon Dioxide 19 L Anion Gap 24 H BUN 16 Creatinine 0.8 Est GFR ( Amer) > 60 Est GFR (Non-Af Amer) > 60 Random Glucose 91 Calcium 8.3 L Total Bilirubin 2.2 H AST 1411 H ALT 403 H D Alkaline Phosphatase 82 Ammonia Total Protein 7.7 Albumin 3.3 L Globulin 4.3 H Albumin/Globulin Ratio 0.8 L Lipase 169 Blood Type O POSITIVE Antibody Screen Negative 07/16/17 07/16/17 10:33 10:45 WBC RBC Hgb Hct MCV MCH MCHC RDW Plt Count MPV Neut % (Auto) Lymph % (Auto) [place] % (Auto) Eos % (Auto) Baso % (Auto) Neut # Lymph # [place] # Eos # Baso # Differential Comment Smear Path Review PT 19.5 H INR 1.7 APTT 33 Sodium Potassium Chloride Carbon Dioxide Anion Gap BUN Creatinine Est GFR ( Amer) Est GFR (Non-Af Amer) Random Glucose Calcium Total Bilirubin AST ALT Alkaline Phosphatase Ammonia 13 D Total Protein Albumin Globulin Albumin/Globulin Ratio Lipase Blood Type Antibody Screen Assessment & Plan - Assessment and Plan (Free Text) Assessment: This is a 42yM presenting with complaints of dizziness, near syncope, vomiting, hematemesis and dark stools for 2 days duration. 1. Microcytic Anemia 2. Hematemesis r/o varcieal bleed, PUD, esophagitis, gastritis, deborah torrez tear, AVM 3. Alcoholic Hepatitis DF 35.8 4. Cirrhosis MELD 19 5. Etoh Abuse 6. Transaminitis Plan: -Continue supportive care as pt is hemodynamically unstable with tachycardia, hypotension and severe anemia -Continue aggressive resuscitation with IVF hydration, will start on IVF NS @ 125cc/hr and order 2U PRBCs -Monitor H/H and transfuse as needed -Start PPI Drip -Start Octreotide Drip -Start IV abx Ceftriaxone 1mg daily for total 7days -NPO -Monitor LFTs -Will order blood cx, UA/ ucx to r/o infection to determine if we can start steroid therapy for possible alcoholic hepatitis -Plan for endoscopy once medically optimized and appropriate resuscitation, will plan for EGD tomorrow am 07/17/17 -Will continue to follow pt closely <Danyel Martel - Last Filed: 07/16/17 17:35> Meds - Medications Medications: Current Medications Pantoprazole Sodium 80 mg/ (Sodium Chloride) 100 mls @ 10 mls/hr IVP .Q10H SYLVIA PRN Reason: 8 MG/HR Last Admin: 07/16/17 11:38 Dose: 10 mls/hr Octreotide Acetate 1,250 mcg/ (Sodium Chloride) 252.5 mls @ 5.05 mls/hr SC .Q24H SYLVIA; 25 MCG/HR PRN Reason: Protocol Last Admin: 07/16/17 14:15 Dose: 5.05 mls/hr Cefazolin Sodium (Ancef) 1 gm in 50 mls @ 100 mls/hr IVPB Q24H SYLVIA Sodium Chloride (Sodium Chloride 0.9%) 1,000 mls @ 150 mls/hr IV .Q6H40M SYLVIA Phytonadione (Vitamin K Inj) 10 mg IV STAT STA Stop: 07/16/17 17:26 Pneumococcal Polyvalent Vaccine (Pneumovax 23 Vaccine) 0.5 ml IM .ONCE ONE Stop: 07/18/17 14:01 Results - Vital Signs Recent Vital Signs: Last Vital Signs Temp 98.9 F 07/16/17 15:39 Pulse 98 H 07/16/17 15:39 Resp 20 07/16/17 15:39 BP 96/51 L 07/16/17 15:39 Pulse Ox 100 07/16/17 12:15 - Labs Result Diagrams: 07/16/17 10:05 07/16/17 10:05 Labs: Laboratory Results - last 24 hr 07/16/17 07/16/17 07/16/17 10:05 10:05 10:33 WBC 9.9 D RBC 1.91 L Hgb 4.5 L* D Hct 14.4 L MCV 75.0 L D MCH 23.4 L MCHC 31.2 L RDW 27.1 H Plt Count 136 MPV 8.6 Neut % (Auto) 68.2 Lymph % (Auto) 21.3 [place] % (Auto) 9.2 Eos % (Auto) 0.5 Baso % (Auto) 0.8 Neut # 6.8 Lymph # 2.1 [place] # 0.9 H Eos # 0.0 Baso # 0.1 Differential Comment Smear Path Review PT INR APTT Sodium 132 Potassium 4.4 Chloride 93 L Carbon Dioxide 19 L Anion Gap 24 H BUN 16 Creatinine 0.8 Est GFR ( Amer) > 60 Est GFR (Non-Af Amer) > 60 Random Glucose 91 Calcium 8.3 L Total Bilirubin 2.2 H AST 1411 H ALT 403 H D Alkaline Phosphatase 82 Ammonia Total Protein 7.7 Albumin 3.3 L Globulin 4.3 H Albumin/Globulin Ratio 0.8 L Lipase 169 Urine Color Urine Clarity Urine pH Ur Specific [place]rena Urine Protein Urine Glucose (UA) Urine Ketones Urine Blood Urine Nitrate Urine Bilirubin Urine Urobilinogen Ur Leukocyte Esterase Urine WBC (Auto) Urine RBC (Auto) Urine Opiates Screen Urine Methadone Screen Ur Barbiturates Screen Ur Phencyclidine Scrn Ur Amphetamines Screen U Benzodiazepines Scrn U Oth Cocaine Metabols U Cannabinoids Screen Alcohol, Quantitative < 10 Blood Type O POSITIVE Antibody Screen Negative 07/16/17 07/16/17 07/16/17 10:33 10:45 15:05 WBC RBC Hgb Hct MCV MCH MCHC RDW Plt Count MPV Neut % (Auto) Lymph % (Auto) [place] % (Auto) Eos % (Auto) Baso % (Auto) Neut # Lymph # [place] # Eos # Baso # Differential Comment Smear Path Review PT 19.5 H INR 1.7 APTT 33 Sodium Potassium Chloride Carbon Dioxide Anion Gap BUN Creatinine Est GFR ( Amer) Est GFR (Non-Af Amer) Random Glucose Calcium Total Bilirubin AST ALT Alkaline Phosphatase Ammonia 13 D Total Protein Albumin Globulin Albumin/Globulin Ratio Lipase Urine Color Yellow Urine Clarity Clear Urine pH 7.0 Ur Specific [place] 1.013 Urine Protein Negative Urine Glucose (UA) Normal Urine Ketones Trace Urine Blood Negative Urine Nitrate Negative Urine Bilirubin Negative Urine Urobilinogen Normal Ur Leukocyte Esterase Neg Urine WBC (Auto) < 1 Urine RBC (Auto) < 1 Urine Opiates Screen Urine Methadone Screen Ur Barbiturates Screen Ur Phencyclidine Scrn Ur Amphetamines Screen U Benzodiazepines Scrn U Oth Cocaine Metabols U Cannabinoids Screen Alcohol, Quantitative Blood Type Antibody Screen 07/16/17 15:05 WBC RBC Hgb Hct MCV MCH MCHC RDW Plt Count MPV Neut % (Auto) Lymph % (Auto) [place] % (Auto) Eos % (Auto) Baso % (Auto) Neut # Lymph # [place] # Eos # Baso # Differential Comment Smear Path Review PT INR APTT Sodium Potassium Chloride Carbon Dioxide Anion Gap BUN Creatinine Est GFR ( Amer) Est GFR (Non-Af Amer) Random Glucose Calcium Total Bilirubin AST ALT Alkaline Phosphatase Ammonia Total Protein Albumin Globulin Albumin/Globulin Ratio Lipase Urine Color Urine Clarity Urine pH Ur Specific [place] Urine Protein Urine Glucose (UA) Urine Ketones Urine Blood Urine Nitrate Urine Bilirubin Urine Urobilinogen Ur Leukocyte Esterase Urine WBC (Auto) Urine RBC (Auto) Urine Opiates Screen Negative Urine Methadone Screen Negative Ur Barbiturates Screen Negative Ur Phencyclidine Scrn Negative Ur Amphetamines Screen Negative U Benzodiazepines Scrn Negative U Oth Cocaine Metabols Negative U Cannabinoids Screen Negative Alcohol, Quantitative Blood Type Antibody Screen Attending/Attestation - Attestation I have personally seen and examined this patient.: Yes I have fully participated in the care of the patient.: Yes I have reviewed all pertinent clinical information: Yes Notes (Text): 07/16/17 17:26 I have seen and examined patient with GI fellow. Agree with above documentation with the following additions. In brief, this is a 42 year old male with history of ETOH abuse, chronic liver disease (suspected cirrhosis), who presents to hospital with complaint of hematemesis which occurred yesterday. He describes recent loss of appetite with nausea, vomiting over the past 2 days which led to vomiting blood yesterday. In addition he describes having dark tarry colored stool for the past two days. He denies abdominal pain , fever/chills, weight loss, or change in bowel habits. His last ETOH drink was 2 days ago. He also reports NSAID use for the past one week for shoulder related pain. He had an EGD in December [address] Sawyer which showed portal hypertensive gastropathy without presence of varices. On admission to hospital he was found to be profoundly anemic and hypotensive, admitted to critical care unit. ETOH abuse, suspected cirrhosis Transaminitis Microcytic anemia, hematemesis with resulting shock, hypotension - severe acute presentation posing threat to patient life History of hepatic lesions - NPO - Maintain two large bore IV lines, patient currently receiving PRBC transfusion , continue to monitor H/H - Continue with IV PPI and octreotide infusion therapies - Administer dose of vitamin K x 1 - Begin antibiotic prophylaxis given upper GI bleeding in patient with suspected cirrhosis - Anti-emetic therapy, standing dose - Acute ETOH hepatitis with elevated DF > 32. Obtain urine and blood culture. - Patient will require EGD evaluation following medical optimization, tentatively plan for tomorrow AM pending patient clinical progress - ETOH cessation counseling - Following resolution of acute medical condition, would consider potential future liver biopsy for further clarification of liver lesions, r/o HCC given clinical scenario. AFP mildly elevated in March 2017.
[2017-07-16 15:14] LABS: ALCOHOL SERUM < 10 mg/dl (0-10)
[2017-07-16 15:22] LABS: RBC URINE < 1 /hpf (0-3); URINE BILIRUBIN NEGATIVE (NEGATIVE); URINE BLOOD NEGATIVE (NEGATIVE); URINE COLOR Yellow (YELLOW); URINE GLUCOSE (UA) NORMAL (Normal); URINE KETONE TRACE mg/dL (NEGATIVE); URINE LEUKOCYTE ESTERASE NEG Leu/uL (Negative); URINE PROTEIN NEGATIVE (NEGATIVE); URINE UROBILINOGEN NORMAL mg/dL (0.2-1.0); WBC URINE < 1 /hpf (0-5)
[2017-07-16] MEDS ORDERED: ceFAZolin 1 gm FROZEN Premix 1 GM/50 ML ML IVPB SCH (16:00)
[2017-07-16] MEDS ORDERED: Phytonadione 10 mg/ml Inj (Adult) IV STA ×3 (17:25→18:36)
[2017-07-16] MEDS: Sodium Chloride 0.9% 1,000 ML IV SCH ×2 (17:30→22:30)
[2017-07-16] MEDS: ceFAZolin 1 gm FROZEN Premix 1 GM/50 ML ML IVPB SCH (18:16)
[2017-07-16 18:35] LABS: INR 1.7
[2017-07-16 18:36] LABS: BASO % 0.9 % (0.0-2.0); EOS % 0.8 % (0.0-4.0); HEMATOCRIT 21.2 % (35.0-51.0); LYMPH # 0.5 K/uL (1.0-4.3); LYMPH % 12.5 % (20.0-40.0); MEAN CORPUSCULAR HEMOGLOBIN 26.5 pg (27.0-31.0); MEAN CORPUSCULAR HGB CONC 32.7 g/dL (33.0-37.0); MEAN PLATELET VOLUME 8.7 fL (7.2-11.7); MONO # 0.4 K/uL (0.0-0.8); MONO % 9.3 % (0.0-10.0); NRBC % 0.3 % (0.0-2.0); RED CELL DISTRIBUTION WIDTH 23.2 % (11.5-14.5)
[2017-07-16 18:37] LABS: CHLORIDE 98 mmol/L (98-107); SODIUM 129 mmol/L (132-148)
[2017-07-16 18:38] LABS: POTASSIUM 4.3 mmol/L (3.6-5.2)
[2017-07-16 18:40] LABS: ALB/GLOB RATIO 0.8 (1.0-2.1); ALKALINE PHOSPHATASE 68 U/L (38-126); ALT/SGPT 297 U/L (21-72); BILIRUBIN,TOTAL 2.3 mg/dL (0.2-1.3); BLOOD UREA NITROGEN 15 mg/dL (9-20); CARBON DIOXIDE 20 mmol/L (22-30); GFR AFRICAN-AMERICAN > 60; GLUCOSE,RANDOM 102 mg/dL (75-110); TOTAL PROTEIN 6.4 g/dL (6.3-8.3)
[2017-07-16 18:41] LABS: CALCIUM 6.9 mg/dl (8.6-10.4); MEAN CELL VOLUME 81.1 fL (80.0-94.0)
[2017-07-16 18:42] LABS: WHITE BLOOD COUNT 4.3 K/uL (4.8-10.8)
[2017-07-16 18:51] LABS: AST/SGOT 998 U/L (17-59)
--- NOTE | 2017-07-16 20:05 | CP.PCM.HP ---
Past Patient History - Infectious Disease Hx of Infectious Diseases: None - Past Medical History & Family History Past Medical History?: Yes - Past Social History Smoking Status: Never Smoked - CARDIAC Hx Hypertension: Yes (PORTAL) - PULMONARY Hx Respiratory Disorders: No - NEUROLOGICAL Hx Seizures: Yes - HEENT Hx HEENT Problems: No - RENAL Hx Chronic Kidney Disease: No - ENDOCRINE/METABOLIC Hx Endocrine Disorders: No - HEMATOLOGICAL/ONCOLOGICAL Hx Anemia: Yes - INTEGUMENTARY Hx Dermatological Problems: No - MUSCULOSKELETAL/RHEUMATOLOGICAL Hx Fractures: No - GASTROINTESTINAL Hx Gastritis: Yes (+ H. PYLORII) - GENITOURINARY/GYNECOLOGICAL Hx Genitourinary Disorders: No - PSYCHIATRIC Hx Substance Use: No - SURGICAL HISTORY Hx Surgeries: No - ANESTHESIA Hx Anesthesia: Yes Hx Anesthesia Reactions: No Meds Allergies/Adverse Reactions: Allergies Allergy/AdvReac Type Severity Reaction Status Date / Time No Known Allergies Allergy Verified 07/16/17 09:42 Physical Exam - Constitutional Appears: Well - Head Exam Head Exam: ATRAUMATIC, NORMAL INSPECTION, NORMOCEPHALIC - Eye Exam Eye Exam: EOMI, Normal appearance, PERRL Pupil Exam: NORMAL ACCOMODATION, PERRL - ENT Exam ENT Exam: Mucous Membranes Moist, Normal Exam - Neck Exam Neck exam: Positive for: Normal Inspection - Respiratory Exam Respiratory Exam: Decreased Breath Sounds - Cardiovascular Exam Cardiovascular Exam: REGULAR RHYTHM, +S1, +S2 - GI/Abdominal Exam GI & Abdominal Exam: Diminished Bowel Sounds, Soft - Rectal Exam Rectal Exam: Deferred Results - Vital Signs Recent Vital Signs: Last Vital Signs Temp 98.9 F 07/16/17 15:39 Pulse 98 H 07/16/17 15:39 Resp 20 07/16/17 15:39 BP 96/51 L 07/16/17 15:39 Pulse Ox 100 07/16/17 12:15 - Labs Result Diagrams: 07/16/17 18:20 07/16/17 18:20 Labs: Laboratory Results - last 24 hr 07/16/17 07/16/17 07/16/17 10:05 10:05 10:33 WBC 9.9 D RBC 1.91 L Hgb 4.5 L* D Hct 14.4 L MCV 75.0 L D MCH 23.4 L MCHC 31.2 L RDW 27.1 H Plt Count 136 MPV 8.6 Neut % (Auto) 68.2 Lymph % (Auto) 21.3 Bent % (Auto) 9.2 Eos % (Auto) 0.5 Baso % (Auto) 0.8 Neut # 6.8 Lymph # 2.1 Bent # 0.9 H Eos # 0.0 Baso # 0.1 Differential Comment Smear Path Review PT INR APTT Sodium 132 Potassium 4.4 Chloride 93 L Carbon Dioxide 19 L Anion Gap 24 H BUN 16 Creatinine 0.8 Est GFR ( Amer) > 60 Est GFR (Non-Af Amer) > 60 Random Glucose 91 Calcium 8.3 L Total Bilirubin 2.2 H AST 1411 H ALT 403 H D Alkaline Phosphatase 82 Ammonia Total Protein 7.7 Albumin 3.3 L Globulin 4.3 H Albumin/Globulin Ratio 0.8 L Lipase 169 Urine Color Urine Clarity Urine pH Ur Specific [place] Urine Protein Urine Glucose (UA) Urine Ketones Urine Blood Urine Nitrate Urine Bilirubin Urine Urobilinogen Ur Leukocyte Esterase Urine WBC (Auto) Urine RBC (Auto) Urine Opiates Screen Urine Methadone Screen Ur Barbiturates Screen Ur Phencyclidine Scrn Ur Amphetamines Screen U Benzodiazepines Scrn U Oth Cocaine Metabols U Cannabinoids Screen Alcohol, Quantitative < 10 Blood Type O POSITIVE Antibody Screen Negative 07/16/17 07/16/17 07/16/17 10:33 10:45 15:05 WBC RBC Hgb Hct MCV MCH MCHC RDW Plt Count MPV Neut % (Auto) Lymph % (Auto) Bent % (Auto) Eos % (Auto) Baso % (Auto) Neut # Lymph # Bent # Eos # Baso # Differential Comment Smear Path Review PT 19.5 H INR 1.7 APTT 33 Sodium Potassium Chloride Carbon Dioxide Anion Gap BUN Creatinine Est GFR ( Amer) Est GFR (Non-Af Amer) Random Glucose Calcium Total Bilirubin AST ALT Alkaline Phosphatase Ammonia 13 D Total Protein Albumin Globulin Albumin/Globulin Ratio Lipase Urine Color Yellow Urine Clarity Clear Urine pH 7.0 Ur Specific [place] 1.013 Urine Protein Negative Urine Glucose (UA) Normal Urine Ketones Trace Urine Blood Negative Urine Nitrate Negative Urine Bilirubin Negative Urine Urobilinogen Normal Ur Leukocyte Esterase Neg Urine WBC (Auto) < 1 Urine RBC (Auto) < 1 Urine Opiates Screen Urine Methadone Screen Ur Barbiturates Screen Ur Phencyclidine Scrn Ur Amphetamines Screen U Benzodiazepines Scrn U Oth Cocaine Metabols U Cannabinoids Screen Alcohol, Quantitative Blood Type Antibody Screen 07/16/17 07/16/17 07/16/17 15:05 18:20 18:20 WBC 4.3 L D RBC 2.61 L Hgb 6.9 L D Hct 21.2 L MCV 81.1 D MCH 26.5 L MCHC 32.7 L RDW 23.2 H Plt Count 46 L D MPV 8.7 Neut % (Auto) 76.5 H Lymph % (Auto) 12.5 L Bent % (Auto) 9.3 Eos % (Auto) 0.8 Baso % (Auto) 0.9 Neut # 3.3 Lymph # 0.5 L Bent # 0.4 Eos # 0.0 Baso # 0.0 Differential Comment Smear Path Review PT 20.0 H INR 1.7 APTT Sodium Potassium Chloride Carbon Dioxide Anion Gap BUN Creatinine Est GFR ( Amer) Est GFR (Non-Af Amer) Random Glucose Calcium Total Bilirubin AST ALT Alkaline Phosphatase Ammonia Total Protein Albumin Globulin Albumin/Globulin Ratio Lipase Urine Color Urine Clarity Urine pH Ur Specific [place] Urine Protein Urine Glucose (UA) Urine Ketones Urine Blood Urine Nitrate Urine Bilirubin Urine Urobilinogen Ur Leukocyte Esterase Urine WBC (Auto) Urine RBC (Auto) Urine Opiates Screen Negative Urine Methadone Screen Negative Ur Barbiturates Screen Negative Ur Phencyclidine Scrn Negative Ur Amphetamines Screen Negative U Benzodiazepines Scrn Negative U Oth Cocaine Metabols Negative U Cannabinoids Screen Negative Alcohol, Quantitative Blood Type Antibody Screen 07/16/17 18:20 WBC RBC Hgb Hct MCV MCH MCHC RDW Plt Count MPV Neut % (Auto) Lymph % (Auto) Bent % (Auto) Eos % (Auto) Baso % (Auto) Neut # Lymph # Bent # Eos # Baso # Differential Comment Smear Path Review PT INR APTT Sodium 129 L Potassium 4.3 Chloride 98 Carbon Dioxide 20 L Anion Gap 15 BUN 15 Creatinine 0.8 Est GFR ( Amer) > 60 Est GFR (Non-Af Amer) > 60 Random Glucose 102 Calcium 6.9 L Total Bilirubin 2.3 H AST 998 H D ALT 297 H D Alkaline Phosphatase 68 Ammonia Total Protein 6.4 Albumin 2.8 L Globulin 3.6 Albumin/Globulin Ratio 0.8 L Lipase Urine Color Urine Clarity Urine pH Ur Specific [place] Urine Protein Urine Glucose (UA) Urine Ketones Urine Blood Urine Nitrate Urine Bilirubin Urine Urobilinogen Ur Leukocyte Esterase Urine WBC (Auto) Urine RBC (Auto) Urine Opiates Screen Urine Methadone Screen Ur Barbiturates Screen Ur Phencyclidine Scrn Ur Amphetamines Screen U Benzodiazepines Scrn U Oth Cocaine Metabols U Cannabinoids Screen Alcohol, Quantitative Blood Type Antibody Screen
[2017-07-17] MEDS: Sodium Chloride 0.9% 1,000 ML IV SCH ×3 (06:03→17:42)
[2017-07-17 06:40] LABS: HEMATOCRIT 27.4 % (35.0-51.0); MEAN CELL VOLUME 83.5 fL (80.0-94.0); MEAN CORPUSCULAR HEMOGLOBIN 27.3 pg (27.0-31.0); MEAN CORPUSCULAR HGB CONC 32.7 g/dL (33.0-37.0); MEAN PLATELET VOLUME 7.9 fL (7.2-11.7); RED CELL DISTRIBUTION WIDTH 19.9 % (11.5-14.5); WHITE BLOOD COUNT 4.6 K/uL (4.8-10.8)
[2017-07-17 06:47] LABS: CHLORIDE 100 mmol/L (98-107)
[2017-07-17 06:48] LABS: POTASSIUM 4.5 mmol/L (3.6-5.2); SODIUM 132 mmol/L (132-148)
[2017-07-17 06:50] LABS: ALB/GLOB RATIO 0.7 (1.0-2.1); AST/SGOT 743 U/L (17-59); BILIRUBIN,DIRECT 1.1 mg/dL (0.0-0.4); BILIRUBIN,TOTAL 2.4 mg/dL (0.2-1.3); CARBON DIOXIDE 20 mmol/L (22-30); GFR AFRICAN-AMERICAN > 60; TOTAL PROTEIN 6.8 g/dL (6.3-8.3)
[2017-07-17 06:51] LABS: ALKALINE PHOSPHATASE 67 U/L (38-126); ALT/SGPT 276 U/L (21-72); BLOOD UREA NITROGEN 15 mg/dL (9-20); CALCIUM 7.3 mg/dl (8.6-10.4); GLUCOSE,RANDOM 98 mg/dL (75-110); PHOSPHOROUS 2.1 mg/dL (2.5-4.5)
[2017-07-17 06:52] LABS: MAGNESIUM 1.4 mg/dL (1.6-2.3)
[2017-07-17] MEDS: Pantoprazole 80 MG in Sodium Chloride 0.9% 100 ML IVPB SCH ×2 (06:57→17:41)
[2017-07-17] MEDS ORDERED: Magnesium Sulfate 1 gm in D5W 1 GM/100 ML BAG IVPB ONE (08:43)
[2017-07-17] MEDS ORDERED: Sodium Phosphate 15 MMOLE in Sodium Chloride 0.9% 250 ML IVPB ONE (08:47)
--- NOTE | 2017-07-17 09:51 | CP.PCM.PN ---
Subjective - Date & Time of Evaluation Date of Evaluation: 07/17/17 Time of Evaluation: 14:20 - Subjective Subjective: clinically same Objective - Vital Signs/Intake and Output Vital Signs (last 24 hours): Temp Pulse Resp BP Pulse Ox 97 F L 77 13 119/70 100 07/17/17 08:00 07/17/17 09:01 07/17/17 09:01 07/17/17 09:01 07/17/17 09:01 Intake and Output: 07/17/17 07/17/17 06:59 18:59 Intake Total 1840 165 Output Total 900 Balance 940 165 - Medications Medications: Current Medications Octreotide Acetate 1,250 mcg/ (Sodium Chloride) 252.5 mls @ 5.05 mls/hr SC .Q24H [facility]; 25 MCG/HR PRN Reason: Protocol Last Admin: 07/16/17 14:15 Dose: 5.05 mls/hr Sodium Chloride (Sodium Chloride 0.9%) 1,000 mls @ 150 mls/hr IV .Q6H40M [facility] Last Admin: 07/17/17 06:03 Dose: 150 mls/hr Cefazolin Sodium (Ancef) 1 gm in 50 mls @ 100 mls/hr IVPB Q24H [facility] Last Admin: 07/16/17 18:16 Dose: 100 mls/hr Pantoprazole Sodium 80 mg/ (Sodium Chloride) 100 mls @ 10 mls/hr IVPB .Q10H [facility] PRN Reason: 8 MG/HR Last Admin: 07/17/17 06:57 Dose: 10 mls/hr Sodium Phosphate 15 mmole/ (Sodium Chloride) 255 mls @ 50 mls/hr IVPB .Q5H6M ONE Stop: 07/17/17 13:52 Ondansetron HCl (Zofran Inj) 4 mg IVP Q8H [facility] Last Admin: 07/17/17 06:02 Dose: 4 mg Pneumococcal Polyvalent Vaccine (Pneumovax 23 Vaccine) 0.5 ml IM .ONCE ONE Stop: 07/18/17 14:01 - Labs Labs: 07/17/17 06:33 07/17/17 06:28 PT 20.0 SECONDS (9.7-12.2) H 07/16/17 18:20 INR 1.7 07/16/17 18:20 APTT 33 SECONDS (21-34) 07/16/17 10:33 - Constitutional Appears: Well - Head Exam Head Exam: ATRAUMATIC, NORMAL INSPECTION, NORMOCEPHALIC - Eye Exam Eye Exam: EOMI, Normal appearance, PERRL Pupil Exam: NORMAL ACCOMODATION, PERRL - ENT Exam ENT Exam: Mucous Membranes Moist, Normal Exam - Neck Exam Neck Exam: Full ROM, Normal Inspection. absent: Lymphadenopathy - Respiratory Exam Respiratory Exam: Decreased Breath Sounds - Cardiovascular Exam Cardiovascular Exam: REGULAR RHYTHM, +S1, +S2 - GI/Abdominal Exam GI & Abdominal Exam: Soft, Diminished Bowel Sounds - Rectal Exam Rectal Exam: Deferred
[2017-07-17 10:34] LABS: INR 1.5
--- NOTE | 2017-07-17 15:38 | CARD ---
APPROVED REPORT EKG Measurement Heart [id number] <Conclusion> Sinus tachycardia Otherwise normal ECG
[2017-07-17] MEDS: ceFAZolin 1 gm FROZEN Premix 1 GM/50 ML ML IVPB SCH (17:41)
[2017-07-18] MEDS: Sodium Chloride 0.9% 1,000 ML IV SCH ×4 (01:00→21:56)
[2017-07-18] MEDS: Pantoprazole 80 MG in Sodium Chloride 0.9% 100 ML IVPB SCH ×3 (02:44→23:05)
--- NOTE | 2017-07-18 05:53 | CP.PCM.PN ---
<Chanda Duncan - Last Filed: 07/18/17 07:28> Subjective - Date & Time of Evaluation Date of Evaluation: 07/18/17 Time of Evaluation: 05:36 - Subjective Subjective: Gastroenterology Fellow/PGY5 Progress Note Patient denies vomiting. Tolerating ice chips. No bowel movement yesterday. A 12 -point review of systems negative except for as above. Objective - Vital Signs/Intake and Output Vital Signs (last 24 hours): Temp Pulse Resp BP Pulse Ox 97.5 F L 68 15 120/57 L 98 07/18/17 04:00 07/18/17 05:00 07/18/17 05:00 07/18/17 04:57 07/18/17 05:00 Intake and Output: 07/17/17 07/18/17 18:59 06:59 Intake Total 1235 Output Total 225 Balance 1010 - Medications Medications: Current Medications Octreotide Acetate 1,250 mcg/ (Sodium Chloride) 252.5 mls @ 5.05 mls/hr SC .Q24H [facility]; 25 MCG/HR PRN Reason: Protocol Last Admin: 07/18/17 01:02 Dose: Not Given Sodium Chloride (Sodium Chloride 0.9%) 1,000 mls @ 150 mls/hr IV .Q6H40M [facility] Last Admin: 07/18/17 01:00 Dose: 150 mls/hr Cefazolin Sodium (Ancef) 1 gm in 50 mls @ 100 mls/hr IVPB Q24H [facility] Last Admin: 07/17/17 17:41 Dose: 100 mls/hr Pantoprazole Sodium 80 mg/ (Sodium Chloride) 100 mls @ 10 mls/hr IVPB .Q10H [facility] PRN Reason: 8 MG/HR Last Admin: 07/18/17 02:44 Dose: 10 mls/hr Ondansetron HCl (Zofran Inj) 4 mg IVP Q8H [facility] Last Admin: 07/17/17 20:59 Dose: 4 mg Pneumococcal Polyvalent Vaccine (Pneumovax 23 Vaccine) 0.5 ml IM .ONCE ONE Stop: 07/18/17 14:01 - Labs Labs: 07/17/17 06:33 07/17/17 06:28 PT 17.5 SECONDS (9.7-12.2) H 10/05/17 10:19 INR 1.5 07/17/17 10:19 APTT 34 SECONDS (21-34) 07/17/17 10:19 - Constitutional Appears: Non-toxic, No Acute Distress - Head Exam Head Exam: ATRAUMATIC, NORMOCEPHALIC - Eye Exam Eye Exam: EOMI, PERRL, Scleral icterus Pupil Exam: PERRL. absent: Miosis, Mydriatic - ENT Exam ENT Exam: Mucous Membranes Moist, Normal Oropharynx - Neck Exam Neck Exam: Full ROM, Normal Inspection - Respiratory Exam Respiratory Exam: Clear to Ausculation Bilateral. absent: Rales, Rhonchi, Wheezes - Cardiovascular Exam Cardiovascular Exam: RRR, +S1, +S2. absent: Gallop, Rubs - GI/Abdominal Exam GI & Abdominal Exam: Soft, Normal Bowel Sounds. absent: Distended, Firm, Guarding, Rigid, Tenderness, Organomegaly, Rebound - Extremities Exam Extremities Exam: Normal Inspection. absent: Pedal Edema - Neurological Exam Neurological Exam: Alert, Awake - Psychiatric Exam Psychiatric exam: Normal Affect, Normal Mood - Skin Skin Exam: Dry, Intact, Normal Color, Warm Assessment and Plan - Assessment and Plan (Free Text) Assessment: 42 year old male with history of alcholic cirrhosis presenting with presenting with hematemesis and dark stools. Active treatment of decompensated cirrhosis 2/ 2 variceal bleed complicated by active alcohol abuse and noncompliance s/p 3Units pRBCs and POD1 (07/17) EGD showing gastritis, portal hypertensive gastropathy, and Grade II varices s/p two variceal bands with complete eradication. Last EGD prior to admission, 12/2016 showed portal hypertensive gastropathy and no varices. Plan: >continue octreotide drip for 72 hours >PPI PO ACB >clear liquid diet today >H/H stable >continue antibiotic bacterial prophylaxis for seven days total >LFTs improving- alcoholic hepatitis, ischemia- hypotension >will require repeat EGD in 6 weeks to re-evaluate varices >known noncompliance- discharge on Propranolol 5mg BID for secondary prevention of variceal bleed >multiple hepatic lesions without definitive HCC enhancement on CT liver protocol 12/2016 >will require outpatient follow up >continue to monitor inpatient today <Erich Corona - Last Filed: 07/18/17 07:45> Objective - Vital Signs/Intake and Output Vital Signs (last 24 hours): Temp Pulse Resp BP Pulse Ox 98.6 F 74 20 145/91 H 98 07/18/17 06:00 07/18/17 06:00 07/18/17 06:00 07/18/17 06:00 07/18/17 06:00 Intake and Output: 07/18/17 07/18/17 06:59 18:59 Intake Total 1980 Output Total 800 Balance 1180 - Medications Medications: Current Medications Folic Acid (Folic Acid) 1 mg PO DAILY [facility] Octreotide Acetate 1,250 mcg/ (Sodium Chloride) 252.5 mls @ 5.05 mls/hr SC .Q24H [facility]; 25 MCG/HR PRN Reason: Protocol Last Admin: 07/18/17 01:02 Dose: Not Given Sodium Chloride (Sodium Chloride 0.9%) 1,000 mls @ 150 mls/hr IV .Q6H40M [facility] Last Admin: 07/18/17 01:00 Dose: 150 mls/hr Pantoprazole Sodium 80 mg/ (Sodium Chloride) 100 mls @ 10 mls/hr IVPB .Q10H [facility] PRN Reason: 8 MG/HR Last Admin: 07/18/17 02:44 Dose: 10 mls/hr Ceftriaxone Sodium (Rocephin Iv 1 Gm Duplex) 50 mls @ 100 mls/hr IVPB DAILY [facility] Lorazepam (Ativan) 1 mg PO Q6H PRN PRN Reason: EtOH Withdrawal Ondansetron HCl (Zofran Inj) 4 mg IVP Q8H [facility] Last Admin: 07/18/17 05:55 Dose: Not Given Pneumococcal Polyvalent Vaccine (Pneumovax 23 Vaccine) 0.5 ml IM .ONCE ONE Stop: 07/18/17 14:01 Thiamine HCl (Vitamin B1 Tab) 100 mg PO DAILY [facility] - Labs Labs: 07/18/17 06:17 07/18/17 06:17 PT 17.2 SECONDS (9.7-12.2) H 07/18/17 06:17 INR 1.5 07/18/17 06:17 APTT 34 SECONDS (21-34) 07/17/17 10:19 Attending/Attestation - Attestation I have personally seen and examined this patient.: Yes I have fully participated in the care of the patient.: Yes I have reviewed all pertinent clinical information, including history, physical exam and plan: Yes Notes (Text): 07/18/17 07:43 42 year old male with h/o alcoholic cirrhosis admitted with variceal bleeding s/ p egd with banding. 1. Esophageal varices 2. Alcoholic cirrhosis Plan: -continue octreotide, PPI, and abx as above -advance diet today -monitor for signs of bleeding -recommend outpatient follow up for repeat CT liver and EGD for repeat banding -start propranolol on discharge
[2017-07-18 06:18] VITALS: RESP 20
[2017-07-18 06:25] LABS: BASO # 0.1 K/uL (0.0-0.2); BASO % 1.7 % (0.0-2.0); EOS % 1.3 % (0.0-4.0); HEMATOCRIT 26.4 % (35.0-51.0); LYMPH # 0.3 K/uL (1.0-4.3); LYMPH % 7.2 % (20.0-40.0); MEAN CELL VOLUME 83.3 fL (80.0-94.0); MEAN CORPUSCULAR HEMOGLOBIN 26.8 pg (27.0-31.0); MEAN CORPUSCULAR HGB CONC 32.1 g/dL (33.0-37.0); MEAN PLATELET VOLUME 8.2 fL (7.2-11.7); MONO # 0.1 K/uL (0.0-0.8); MONO % 1.9 % (0.0-10.0); NRBC % 0.1 % (0.0-2.0); PLATELET COUNT 42 K/uL (130-400); RED CELL DISTRIBUTION WIDTH 19.5 % (11.5-14.5); WHITE BLOOD COUNT 3.6 K/uL (4.8-10.8)
[2017-07-18 06:34] LABS: INR 1.5
[2017-07-18 06:37] LABS: CHLORIDE 104 mmol/L (98-107); POTASSIUM 4.2 mmol/L (3.6-5.2); SODIUM 133 mmol/L (132-148)
[2017-07-18 06:39] LABS: GFR AFRICAN-AMERICAN > 60
[2017-07-18 06:40] LABS: ALB/GLOB RATIO 0.7 (1.0-2.1); ALKALINE PHOSPHATASE 63 U/L (38-126); ALT/SGPT 243 U/L (21-72); AST/SGOT 550 U/L (17-59); BILIRUBIN,TOTAL 1.8 mg/dL (0.2-1.3); BLOOD UREA NITROGEN 9 mg/dL (9-20); CALCIUM 7.1 mg/dl (8.6-10.4); CARBON DIOXIDE 18 mmol/L (22-30); GLUCOSE,RANDOM 77 mg/dL (75-110); TOTAL PROTEIN 6.3 g/dL (6.3-8.3)
--- NOTE | 2017-07-18 07:03 | CP.PCM.PN ---
Subjective - Date & Time of Evaluation Date of Evaluation: 07/18/17 Time of Evaluation: 09:50 - Subjective Subjective: Pt seen and examined at bedside today; has not had any more episodes of vomiting. States he does not drink anymore and has quit for a while now and understand the severity and deadliness of his condition if he continues to drink. He offers no complaints this morning. Objective - Vital Signs/Intake and Output Vital Signs (last 24 hours): Temp Pulse Resp BP Pulse Ox 98.6 F 74 20 145/91 H 98 07/18/17 06:00 07/18/17 06:00 07/18/17 06:00 07/18/17 06:00 07/18/17 06:00 Intake and Output: 07/18/17 07/18/17 06:59 18:59 Intake Total 1980 Output Total 800 Balance 1180 - Medications Medications: Current Medications Octreotide Acetate 1,250 mcg/ (Sodium Chloride) 252.5 mls @ 5.05 mls/hr SC .Q24H [facility]; 25 MCG/HR PRN Reason: Protocol Last Admin: 07/18/17 01:02 Dose: Not Given Sodium Chloride (Sodium Chloride 0.9%) 1,000 mls @ 150 mls/hr IV .Q6H40M [facility] Last Admin: 07/18/17 01:00 Dose: 150 mls/hr Cefazolin Sodium (Ancef) 1 gm in 50 mls @ 100 mls/hr IVPB Q24H [facility] Last Admin: 07/17/17 17:41 Dose: 100 mls/hr Pantoprazole Sodium 80 mg/ (Sodium Chloride) 100 mls @ 10 mls/hr IVPB .Q10H [facility] PRN Reason: 8 MG/HR Last Admin: 07/18/17 02:44 Dose: 10 mls/hr Ondansetron HCl (Zofran Inj) 4 mg IVP Q8H [facility] Last Admin: 07/18/17 05:55 Dose: Not Given Pneumococcal Polyvalent Vaccine (Pneumovax 23 Vaccine) 0.5 ml IM .ONCE ONE Stop: 07/18/17 14:01 - Labs Labs: 07/18/17 06:17 07/18/17 06:17 PT 17.2 SECONDS (9.7-12.2) H 07/18/17 06:17 INR 1.5 07/18/17 06:17 APTT 34 SECONDS (21-34) 07/17/17 10:19 - Constitutional Appears: Non-toxic - Head Exam Head Exam: ATRAUMATIC - Eye Exam Eye Exam: EOMI - ENT Exam ENT Exam: Mucous Membranes Moist - Neck Exam Neck Exam: Full ROM. absent: Lymphadenopathy - Respiratory Exam Respiratory Exam: Clear to Ausculation Bilateral - Cardiovascular Exam Cardiovascular Exam: REGULAR RHYTHM - GI/Abdominal Exam GI & Abdominal Exam: Soft, Normal Bowel Sounds - Extremities Exam Extremities Exam: absent: Calf Tenderness - Back Exam Back Exam: NORMAL INSPECTION. absent: CVA tenderness (L), CVA tenderness (R) - Neurological Exam Neurological Exam: Alert, Awake, Oriented x3 - Psychiatric Exam Psychiatric exam: Normal Affect - Skin Skin Exam: Warm Assessment and Plan - Assessment and Plan (Free Text) Assessment: 42 year old male with history of alcholic cirrhosis presenting with presenting with hematemesis and dark stools Acute symptomatic anemia 2/2 to variceal bleeding 2/2 to EtoH Cirrhosis and noncompliance -appropriate response to 3units PRBS; 4.9-->8.6; stable, no more bleeding As per GI (Dr. Sawyer and [facility] [place]): continue octreotide drip for 72 hours (approaching 48 hours) PPI PO ACB clear liquid diet today-->advance diet as per GI antibiotic bacterial prophylaxis for seven days total, has had 2 days so far will require repeat EGD in 6 weeks to re-evalaute varices known noncompliance- would benefit from NSBB for secondary prevention of variceal bleed multiple hepatic lesions without definitive HCC enhancement on CT liver protocol 12/2016 will require extensive outpatient follow up -CIWA protocol, PRN Ativan (elevated LFT and liver cirrhosis) for withdrawal symptoms, folate/thiamine daily -to go home on propanolol daily for portal HTN; reduce resting HR by 25%; start 10mg PO TID -MELD score 17 pts 07/18 Prophylaxis -hold lovenox 2/2 bleeding; SCD -on octreotide and protonix -CLD All management as per Dr. Kendrick Leroy Will be able to go home tomorrow if H/H stays stable and has no more episodes of bleeding; needs IV drips for 24 hours longer.
[2017-07-18 08:33] LABS: EOSINOPHIL 3 % (0-4); NEUTROPHIL 90 % (50-75); TOTAL CELLS COUNTED 100
[2017-07-18 08:35] LABS: ACANTHOCYTES SLIGHT
[2017-07-18] MEDS: cefTRIAXone IV 1 gm in Dextros 50 ML IVPB SCH (10:03)
[2017-07-18] MEDS ORDERED: Influenza Vaccine 60 mcg/0.5 mL SYR (4YR UP) IM ONE (14:00)
[2017-07-18] MEDS ORDERED: Pneumococcal 23-Valent Vaccine IM ONE (14:00)
--- NOTE | 2017-07-18 18:53 | CP.PCM.PN ---
Subjective - Date & Time of Evaluation Date of Evaluation: 07/18/17 Time of Evaluation: 08:20 - Subjective Subjective: clinically same Objective - Vital Signs/Intake and Output Vital Signs (last 24 hours): Temp Pulse Resp BP Pulse Ox 98.2 F 74 20 128/84 100 07/18/17 15:00 07/18/17 15:00 07/18/17 15:00 07/18/17 15:00 07/18/17 15:00 Intake and Output: 07/18/17 07/18/17 06:59 18:59 Intake Total 1980 1655 Output Total 800 Balance 1180 1655 - Medications Medications: Current Medications Folic Acid (Folic Acid) 1 mg PO DAILY [facility] Last Admin: 07/18/17 10:03 Dose: 1 mg Sodium Chloride (Sodium Chloride 0.9%) 1,000 mls @ 150 mls/hr IV .Q6H40M [facility] Last Admin: 07/18/17 14:07 Dose: 150 mls/hr Pantoprazole Sodium 80 mg/ (Sodium Chloride) 100 mls @ 10 mls/hr IVPB .Q10H [facility] PRN Reason: 8 MG/HR Last Admin: 07/18/17 12:45 Dose: 10 mls/hr Ceftriaxone Sodium (Rocephin Iv 1 Gm Duplex) 50 mls @ 100 mls/hr IVPB DAILY [facility] Last Admin: 07/18/17 10:03 Dose: 100 mls/hr Octreotide Acetate 1,250 mcg/ (Sodium Chloride) 252.5 mls @ 5.05 mls/hr IV .Q24H [facility]; 25 MCG/HR PRN Reason: Protocol Last Admin: 07/18/17 12:47 Dose: 5.05 mls/hr Lorazepam (Ativan) 1 mg PO Q6H PRN PRN Reason: EtOH Withdrawal Ondansetron HCl (Zofran Inj) 4 mg IVP Q8H [facility] Last Admin: 07/18/17 14:05 Dose: Not Given Thiamine HCl (Vitamin B1 Tab) 100 mg PO DAILY [facility] Last Admin: 07/18/17 10:03 Dose: 100 mg - Labs Labs: 07/18/17 06:17 07/18/17 06:17 PT 17.2 SECONDS (9.7-12.2) H 07/18/17 06:17 INR 1.5 07/18/17 06:17 APTT 34 SECONDS (21-34) 07/17/17 10:19 - Constitutional Appears: Well - Head Exam Head Exam: ATRAUMATIC, NORMAL INSPECTION, NORMOCEPHALIC - Eye Exam Eye Exam: EOMI, Normal appearance, PERRL Pupil Exam: NORMAL ACCOMODATION, PERRL - ENT Exam ENT Exam: Mucous Membranes Moist, Normal Exam - Neck Exam Neck Exam: Full ROM, Normal Inspection. absent: Lymphadenopathy - Respiratory Exam Respiratory Exam: Decreased Breath Sounds - Cardiovascular Exam Cardiovascular Exam: REGULAR RHYTHM, +S1, +S2 - GI/Abdominal Exam GI & Abdominal Exam: Soft, Diminished Bowel Sounds - Rectal Exam Rectal Exam: Deferred
[2017-07-19] MEDS: Sodium Chloride 0.9% 1,000 ML IV SCH ×2 (04:00→13:02)
[2017-07-19 06:36] LABS: BASO % 0.6 % (0.0-2.0); EOS % 0.6 % (0.0-4.0); HEMATOCRIT 27.7 % (35.0-51.0); LYMPH # 0.4 K/uL (1.0-4.3); LYMPH % 8.7 % (20.0-40.0); MEAN CORPUSCULAR HEMOGLOBIN 26.7 pg (27.0-31.0); MEAN CORPUSCULAR HGB CONC 32.5 g/dL (33.0-37.0); MEAN PLATELET VOLUME 8.2 fL (7.2-11.7); MONO # 0.6 K/uL (0.0-0.8); MONO % 15.2 % (0.0-10.0); NRBC % 0.4 % (0.0-2.0); PLATELET COUNT 49 K/uL (130-400); WHITE BLOOD COUNT 4.2 K/uL (4.8-10.8)
[2017-07-19 06:39] LABS: CHLORIDE 104 mmol/L (98-107); POTASSIUM 3.6 mmol/L (3.6-5.2); SODIUM 132 mmol/L (132-148)
[2017-07-19 06:41] LABS: BILIRUBIN,TOTAL 1.7 mg/dL (0.2-1.3); CARBON DIOXIDE 19 mmol/L (22-30); GFR AFRICAN-AMERICAN > 60; INR 1.5
[2017-07-19 06:42] LABS: ALB/GLOB RATIO 0.6 (1.0-2.1); ALKALINE PHOSPHATASE 67 U/L (38-126); ALT/SGPT 196 U/L (21-72); AST/SGOT 265 U/L (17-59); BLOOD UREA NITROGEN 3 mg/dL (9-20); GLUCOSE,RANDOM 108 mg/dL (75-110); TOTAL PROTEIN 6.9 g/dL (6.3-8.3)
--- NOTE | 2017-07-19 08:07 | CP.PCM.PN ---
Subjective - Date & Time of Evaluation Date of Evaluation: 07/19/17 Time of Evaluation: 08:00 - Subjective Subjective: Patient seen and examined, sitting at bedside, appears quite comfortable. No acute events overnight. He denies abdominal pain, nausea, vomiting, fever/ chills. He had one soft green/brown colored bowel movement overnight. Tolerating PO liquids without difficulty. Review of vitals shows temperature 102.1. 12 point review of systems performed, negative aside from mentioned above. Objective - Vital Signs/Intake and Output Vital Signs (last 24 hours): Temp Pulse Resp BP Pulse Ox 102.1 F H 78 20 120/80 98 07/19/17 06:19 07/19/17 05:50 07/19/17 05:50 07/19/17 05:50 07/19/17 05:50 Intake and Output: 07/19/17 07/19/17 06:59 18:59 Intake Total 3130 Balance 3130 - Medications Medications: Current Medications Folic Acid (Folic Acid) 1 mg PO DAILY [facility] Last Admin: 07/18/17 10:03 Dose: 1 mg Sodium Chloride (Sodium Chloride 0.9%) 1,000 mls @ 150 mls/hr IV .Q6H40M [facility] Last Admin: 07/19/17 04:00 Dose: 150 mls/hr Ceftriaxone Sodium (Rocephin Iv 1 Gm Duplex) 50 mls @ 100 mls/hr IVPB DAILY [facility] Last Admin: 07/18/17 10:03 Dose: 100 mls/hr Lorazepam (Ativan) 1 mg PO Q6H PRN PRN Reason: EtOH Withdrawal Ondansetron HCl (Zofran Inj) 4 mg IVP Q8H [facility] Last Admin: 07/19/17 05:38 Dose: 4 mg Pantoprazole Sodium (Protonix Ec Tab) 40 mg PO DAILY [facility] Thiamine HCl (Vitamin B1 Tab) 100 mg PO DAILY [facility] Last Admin: 07/18/17 10:03 Dose: 100 mg - Labs Labs: 07/19/17 06:25 07/19/17 06:25 PT 17.3 SECONDS (9.7-12.2) H 07/19/17 06:25 INR 1.5 07/19/17 06:25 APTT 34 SECONDS (21-34) 07/17/17 10:19 - Constitutional Appears: Non-toxic, No Acute Distress - Head Exam Head Exam: NORMAL INSPECTION - Eye Exam Eye Exam: EOMI, Normal appearance - ENT Exam ENT Exam: Mucous Membranes Moist - Respiratory Exam Respiratory Exam: Clear to Ausculation Bilateral - Cardiovascular Exam Cardiovascular Exam: REGULAR RHYTHM, +S1, +S2 - GI/Abdominal Exam GI & Abdominal Exam: Soft, Normal Bowel Sounds Additional comments: non tender to palpation in four quadrants - Extremities Exam Extremities Exam: Normal Inspection - Skin Skin Exam: Dry, Intact, Normal Color, Warm Assessment and Plan - Assessment and Plan (Free Text) Assessment: ETOH decompensated cirrhosis Hematemesis, s/p EGD and variceal band ligation therapy Microcytic anemia Fever Plan: - Advance diet to low sodium soft as tolerated - Continue with antibiotic therapy, infectious workup as per medical team - May discontinue octreotide and PPI infusion therapies - will change to oral PPI once daily - Initiate B-mikki therapy for prophylaxis, monitor BP and heart rate - ETOH cessation counseling - NSAID avoidance - H/H stable, no overt bleeding noted, continue to monitor - Patient will require additional outpatient follow up including repeat EGD with possible banding and further evaluation of previously noted hepatic lesions. No planned further GI intervention, will sign off case. Please reconsult as necessary, thank you.
[2017-07-19 08:42] LABS: EOSINOPHIL 2 % (0-4); NEUTROPHIL 80 % (50-75); TOTAL CELLS COUNTED 100
[2017-07-19 08:45] LABS: LARGE PLATELETS PRESENT
[2017-07-19] MEDS: Propranolol 5 mg Tab PO SCH ×2 (09:28→17:43)
[2017-07-19] MEDS: Pantoprazole 40 mg EC Tab PO SCH (09:29)
[2017-07-19] MEDS: cefTRIAXone IV 1 gm in Dextros 50 ML IVPB SCH (09:52)
--- NOTE | 2017-07-19 15:21 | CP.PCM.PN ---
Subjective - Date & Time of Evaluation Date of Evaluation: 07/19/17 Time of Evaluation: 08:20 - Subjective Subjective: clinically same Objective - Vital Signs/Intake and Output Vital Signs (last 24 hours): Temp Pulse Resp BP Pulse Ox 98.2 F 76 20 144/85 97 07/19/17 08:03 07/19/17 08:03 07/19/17 08:03 07/19/17 08:03 07/19/17 08:03 Intake and Output: 07/19/17 07/19/17 06:59 18:59 Intake Total 3130 1930 Balance 3130 1930 - Medications Medications: Current Medications Folic Acid (Folic Acid) 1 mg PO DAILY [facility] Last Admin: 07/19/17 09:28 Dose: 1 mg Sodium Chloride (Sodium Chloride 0.9%) 1,000 mls @ 150 mls/hr IV .Q6H40M [facility] Last Admin: 07/19/17 13:02 Dose: 150 mls/hr Ceftriaxone Sodium (Rocephin Iv 1 Gm Duplex) 50 mls @ 100 mls/hr IVPB DAILY [facility] Last Admin: 07/19/17 09:52 Dose: 100 mls/hr Lorazepam (Ativan) 1 mg PO Q6H PRN PRN Reason: EtOH Withdrawal Ondansetron HCl (Zofran Inj) 4 mg IVP Q8H [facility] Last Admin: 07/19/17 13:51 Dose: 4 mg Pantoprazole Sodium (Protonix Ec Tab) 40 mg PO DAILY [facility] Last Admin: 07/19/17 09:29 Dose: 40 mg Propranolol HCl (Inderal) 5 mg PO BID [facility] Last Admin: 07/19/17 09:28 Dose: 5 mg Thiamine HCl (Vitamin B1 Tab) 100 mg PO DAILY [facility] Last Admin: 07/19/17 09:29 Dose: 100 mg - Labs Labs: 07/19/17 06:25 07/19/17 06:25 PT 17.3 SECONDS (9.7-12.2) H 07/19/17 06:25 INR 1.5 07/19/17 06:25 APTT 34 SECONDS (21-34) 07/17/17 10:19 - Constitutional Appears: Well - Head Exam Head Exam: ATRAUMATIC, NORMAL INSPECTION, NORMOCEPHALIC - Eye Exam Eye Exam: EOMI, Normal appearance, PERRL Pupil Exam: NORMAL ACCOMODATION, PERRL - ENT Exam ENT Exam: Mucous Membranes Moist, Normal Exam - Neck Exam Neck Exam: Full ROM, Normal Inspection. absent: Lymphadenopathy - Cardiovascular Exam Cardiovascular Exam: REGULAR RHYTHM, +S1, +S2 - GI/Abdominal Exam GI & Abdominal Exam: Soft, Diminished Bowel Sounds - Rectal Exam Rectal Exam: Deferred
[2017-07-20 09:06] VITALS: O2SAT 99
[2017-07-20] MEDS: cefTRIAXone IV 1 gm in Dextros 50 ML IVPB SCH (09:44)
[2017-07-20] MEDS: Pantoprazole 40 mg EC Tab PO SCH (09:45)
[2017-07-20] MEDS: Propranolol 5 mg Tab PO SCH ×2 (09:45→17:47)
--- NOTE | 2017-07-20 11:14 | CP.PCM.PN ---
Subjective - Date & Time of Evaluation Date of Evaluation: 07/20/17 Time of Evaluation: 08:00 - Subjective Subjective: clinically same Objective - Vital Signs/Intake and Output Vital Signs (last 24 hours): Temp Pulse Resp BP Pulse Ox 98.3 F 72 20 149/49 L 99 07/20/17 09:04 07/20/17 09:04 07/20/17 09:04 07/20/17 09:04 07/20/17 09:04 Intake and Output: 07/20/17 07/20/17 06:59 18:59 Intake Total 580 Output Total 600 Balance -20 - Medications Medications: Current Medications Folic Acid (Folic Acid) 1 mg PO DAILY [facility] Last Admin: 07/20/17 09:45 Dose: 1 mg Ceftriaxone Sodium (Rocephin Iv 1 Gm Duplex) 50 mls @ 100 mls/hr IVPB DAILY [facility] Last Admin: 07/20/17 09:44 Dose: 100 mls/hr Lorazepam (Ativan) 1 mg PO Q6H PRN PRN Reason: EtOH Withdrawal Ondansetron HCl (Zofran Inj) 4 mg IVP Q8H [facility] Last Admin: 07/20/17 05:25 Dose: 4 mg Pantoprazole Sodium (Protonix Ec Tab) 40 mg PO DAILY [facility] Last Admin: 07/20/17 09:45 Dose: 40 mg Propranolol HCl (Inderal) 5 mg PO BID [facility] Last Admin: 07/20/17 09:45 Dose: 5 mg Thiamine HCl (Vitamin B1 Tab) 100 mg PO DAILY [facility] Last Admin: 07/20/17 09:45 Dose: 100 mg - Labs Labs: 07/19/17 06:25 07/19/17 06:25 PT 17.3 SECONDS (9.7-12.2) H 07/19/17 06:25 INR 1.5 07/19/17 06:25 APTT 34 SECONDS (21-34) 07/17/17 10:19 - Constitutional Appears: Well - Head Exam Head Exam: ATRAUMATIC, NORMAL INSPECTION, NORMOCEPHALIC - Eye Exam Eye Exam: EOMI, Normal appearance, PERRL Pupil Exam: NORMAL ACCOMODATION, PERRL - ENT Exam ENT Exam: Mucous Membranes Moist, Normal Exam - Neck Exam Neck Exam: Full ROM, Normal Inspection. absent: Lymphadenopathy - Respiratory Exam Respiratory Exam: Decreased Breath Sounds - Cardiovascular Exam Cardiovascular Exam: REGULAR RHYTHM, +S1, +S2 - GI/Abdominal Exam GI & Abdominal Exam: Soft, Diminished Bowel Sounds - Rectal Exam Rectal Exam: Deferred
[2017-07-20 17:05] VITALS: BP 121/79; PULSE 80; TEMP 98.7
== END 2017-07-20 20:54 | disposition home or self-care (01) | DRG 468 ==
LOC: C.ER 09:33 → C.9E 10:52 → C.9I 12:01 → C.3T 07-18 05:40
PROVIDERS: ADMIT Internal Medicine Nephrology; ATTEND Internal Medicine Nephrology
PROC: 30233N1 Transfusion of Nonautologous Red Blood Cells into Peripheral Vein, Percutaneous Approach (ICD-10-PCS; 2017-07-16)
PROC: HZ2ZZZZ Detoxification Services for Substance Abuse Treatment (ICD-10-PCS; 2017-07-16)
PROC: 06L34CZ Occlusion of Esophageal Vein with Extraluminal Device, Percutaneous Endoscopic Approach (ICD-10-PCS; principal; 2017-07-17 13:15)
DX: K70.30 Alcoholic cirrhosis of liver without ascites (principal); I85.11 Secondary esophageal varices with bleeding; K92.0 Hematemesis; K76.6 Portal hypertension; D69.6 Thrombocytopenia, unspecified; D62 Acute posthemorrhagic anemia; F10.239 Alcohol dependence with withdrawal, unspecified; K70.10 Alcoholic hepatitis without ascites; G40.89 Other seizures; K27.9 Peptic ulcer, site unspecified, unspecified as acute or chronic, without hemorrhage or perforation; Y90.0 Blood alcohol level of less than 20 mg/100 ml; R55 Syncope and collapse; K21.0 Gastro-esophageal reflux disease with esophagitis; Q27.33 Arteriovenous malformation of digestive system vessel; Z91.14 Patient's other noncompliance with medication regimen

== ENCOUNTER 2018-01-01 19:50 | Inpatient (IN) | payer MEDICAID ==
[2018-01-01 19:50] VITALS: BMI 19.5
--- NOTE | 2018-01-01 20:34 | C.PDOC ---
History Of Present Illness 42yo male with history of alcoholism, prior alcoholic hepatitis, brought in by his for evaluation as the size of his abdomen has been constantly increasing. Patient unable to quantify the amount of beer he drinks daily. He denies any chest pain, shortness of breath, abdominal pain, nausea or vomiting, headaches. NO medical complaints. Chief Complaint (Nursing): Abdominal Pain History Per: Patient, Family History/Exam Limitations: no limitations Current Symptoms Are (Timing): Still Present Associated Symptoms: denies: Fever, Chills, Nausea, Vomiting, Diarrhea, Back Pain, Chest Pain Past Medical History Reviewed: Historical Data, Nursing Documentation, Vital Signs Vital Signs: Last Vital Signs Temp 99.4 F 01/01/18 23:10 Pulse 81 01/01/18 23:10 Resp 14 01/01/18 23:10 BP 118/82 01/01/18 23:10 Pulse Ox 100 01/01/18 23:16 - Medical History PMH: Anemia, Gastritis (+ H. PYLORII), Gastrointestinal Ulcer, HTN (PORTAL), Seizures Denies: Fractures, Chronic Kidney Disease Surgical History: Endoscopy - [facility] Procedures ALCOHOL DETOXIFICATION (10/03/14) DETOXIFICATION SERVICES FOR SUBSTANCE ABUSE TREATMENT (07/16/17) ESOPHAGOGASTRODUODENOSCOPY [EGD] W/CLOSED BIOPSY (08/10/14) INDIV PHARMACY AFFAIRS ASSISTANT FOR SUBSTANCE ABUSE TREATMENT, BEHAVIORAL (08/05/15) INDIV PSYCHOTHERAPY FOR SUBSTANCE ABUSE TREATMENT, SUPPORT (04/25/17) INSERTION OF ENDOTRACHEAL AIRWAY INTO TRACHEA, VIA OPENING (08/05/15) INSPECTION OF UPPER INTESTINAL TRACT, ENDO (08/05/15) MEDS MGMT FOR SUBSTANCE ABUSE TREATMENT, OTH REPL MED (04/25/17) OCCLUSION ESOPHAGEAL VEIN W EXTRALUM DEV, PERC ENDO (07/16/17) OTHER ENDOSCOPY OF SM INTEST (11/19/14) PACKED CELL TRANSFUSION (04/04/15) PLATELET TRANSFUSION (11/19/14) RESPIRATORY VENTILATION, 24-96 CONSECUTIVE HOURS (08/05/15) TRANSFUSE NONAUT PLATELETS IN PERIPH VEIN, PERC (08/05/15) TRANSFUSE NONAUT RED BLOOD CELLS IN PERIPH VEIN, PERC (07/16/17) VACCINATION NEC (03/14/14) Family History: States: Unknown Family Hx - Social History Hx Tobacco Use: No Hx Alcohol Use: Yes Hx Substance Use: No - Immunization History Hx Tetanus Toxoid Vaccination: No Hx Influenza Vaccination: No Hx Pneumococcal Vaccination: No Review Of Systems Except As Marked, All Systems Reviewed And Found Negative. Constitutional: Negative for: Fever, Chills Cardiovascular: Negative for: Chest Pain Respiratory: Negative for: Shortness of Breath Gastrointestinal: Negative for: Nausea, Vomiting, Abdominal Pain Neurological: Negative for: Headache Physical Exam - Physical Exam Appears: Non-toxic Skin: Warm, Dry Head: Atraumatic, Normacephalic, Other (no encephalopathic manifestation) Eye(s): bilateral: Scleral Icterus Neck: Normal ROM, Supple Chest: Symmetrical Cardiovascular: Rhythm Regular, No Murmur Respiratory: Normal Breath Sounds Gastrointestinal/Abdominal: Soft, No Tenderness, Distention, Ascites (fluid wave noted), Other (venous pattern on abdomen. spider angiomas present) Rectal: Normal Exam, Heme Positive Back: Normal Inspection Extremity: Normal ROM, No Deformity Pulses: Left Dorsalis Pedis: Normal, Right Dorsalis Pedis: Normal Neurological/Psych: Oriented x3, Normal Speech, Normal Cognition ED Course And Treatment - Laboratory Results Result Diagrams: 01/01/18 20:39 01/01/18 20:39 O2 Sat by Pulse Oximetry: 100 (RA) Pulse Ox Interpretation: Normal Medical Decision Making Medical Decision Making: Impression: Chronic alcoholism, hepatitis Plan: -- Labs -- CXR Time: 2143 Labs reviewed and shows hemoglobin level of 6.7 Stool occult test positive. Time: [address] Kendrick Leroy who accepts patient for admission, requesting ICU evaluation. Case discussed with Dr. Ryan who will come and evaluated patient at bedside. Time: [address] Ryan who states the patient does not need ICU evaluation at this time. Patient to be admitted to [facility]. Disposition - Disposition Disposition: HOSPITALIZED Disposition Time: 01:46 Condition: FAIR - Clinical Impression Clinical Impression: GI bleed, Alcoholic hepatitis - Scribe Statement The provider has reviewed the documentation as recorded by the Scribe (Lizzy Watkins) Provider Attestation: All medical record entries made by the Scribe were at my direction and personally dictated by me. I have reviewed the chart and agree that the record accurately reflects my personal performance of the history, physical exam, medical decision making, and the department course for this patient. I have also personally directed, reviewed, and agree with the discharge instructions and disposition.
[2018-01-01 20:53] LABS: INR 1.4; PROTHROMBIN TIME 15.4 SECONDS (9.7-12.2)
[2018-01-01 20:57] LABS: ALB/GLOB RATIO 0.8 (1.0-2.1); ALBUMIN 3.6 g/dL (3.5-5.0); ALT/SGPT 43 U/L (21-72); AST/SGOT 112 U/L (17-59); BLOOD UREA NITROGEN 3 mg/dL (9-20); CALCIUM 7.7 mg/dl (8.6-10.4); GFR AFRICAN-AMERICAN > 60; GFR NON-AFRICAN AMERICAN > 60; LIPASE 283 U/L (23-300)
[2018-01-01 21:07] LABS: BASO # 0.1 K/uL (0.0-0.2); BASO % 1.8 % (0.0-2.0); LYMPH # 0.2 K/uL (1.0-4.3); LYMPH % 5.2 % (20.0-40.0); MEAN CORPUSCULAR HGB CONC 29.7 g/dL (33.0-37.0); MEAN PLATELET VOLUME 8.6 fL (7.2-11.7); MONO # 0.5 K/uL (0.0-0.8); MONO % 11.7 % (0.0-10.0); NEUT # 3.2 K/uL (1.8-7.0); NEUT % 80.3 % (50.0-75.0); NRBC % 0.4 % (0.0-2.0); PLATELET COUNT 40 K/uL (130-400); RED CELL DISTRIBUTION WIDTH 21.5 % (11.5-14.5)
[2018-01-01 21:09] LABS: HEMOGLOBIN 6.7 g/dL (12.0-18.0); MEAN CELL VOLUME 77.3 fL (80.0-94.0)
[2018-01-01 21:44] LABS: EOSINOPHIL 1 % (0-4); LYMPHOCYTE 9 % (20-40); MONOCYTE 4 % (0-10); NEUTROPHIL 86 % (50-75); TOTAL CELLS COUNTED 100
[2018-01-01 21:45] LABS: PLATELET ESTIMATE MARKEDLY DECREASED (NORMAL)
[2018-01-01 21:46] LABS: ANISOCYTOSIS SLIGHT; HYPOCHROMIC SLIGHT; POIKILOCYTOSIS SLIGHT
[2018-01-01 21:47] LABS: OVALOCYTES SLIGHT; TARGET CELLS SLIGHT; TEARDROP CELLS SLIGHT
[2018-01-01 22:21] LABS: IRON 18 ug/dL (49-181)
[2018-01-01 22:32] LABS: % IRON SATURATION 5 (20-55); TOTAL IRON BINDING CAPACITY 365 ug/dL (250-450)
[2018-01-01 23:16] LABS: FOLATE 7.4 ng/mL
--- NOTE | 2018-01-02 08:27 | RAD ---
PROCEDURE: CHEST RADIOGRAPH, 1 VIEW HISTORY: Abdominal pain COMPARISON: 05/12/2017. FINDINGS: LUNGS: The right lung is well inflated and clear. There is redemonstration of a thin-walled bulla in the left apex. No focal consolidation. PLEURA: No pneumothorax or pleural fluid seen. CARDIOVASCULAR: Normal. OSSEOUS STRUCTURES: No significant abnormalities. VISUALIZED UPPER ABDOMEN: Normal. OTHER FINDINGS: None. IMPRESSION: No significant interval change. No active pulmonary disease.
--- NOTE | 2018-01-02 09:27 | CP.PCM.CON ---
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 GI was consulted for anemia. His initial hgb was 6.7. He received 1 unit PRBC in the ER and is ordered 1 unit of platlets. Pt reports episode of dark black stool for 1-2 weeks ago. Pt reports that his last drink was yesterday and usually drinks 2x24oz beers daily since the age of 16yr old. Denies hard liquor. Denies any hematochezia, abdominal distention or new skin lesions. He denies any oupt follow-up with GI. He is also unaware if he is taking any medications for his cirrhosis. Pt's last EGD was in July which revealed Grade 2 varices s/p 2 bands. In December 2016: diffuse severe inflammation, erosions in stomach. Moderate gastric portal HTN, no ulcers or varices on exam. No prior colonoscopy. Per medical records, pt was just admitted to inpt psych for alcohol withdrawal and reported drinking 4-6x24oz beers. Pt was found to be anemic with low Hgb 4.5 and SBP 80-100s. Pt admitted to ICU for close observation. ROS: A 12pt ROS was obtained and was negative except as above. PmHx: As stated in HPI PsHx: none SHx: Lives with and young son, unemployed, drinks ETOH 2-4x24oz beers since age 16 FHx: Denies colon cancer Endo Hx: Jul 2017, December 2016, 10/2016 Past Patient History - Infectious Disease Hx of Infectious Diseases: None - Past Medical History & Family History Past Medical History?: Yes - Past Social History Smoking Status: Never Smoked - CARDIAC Hx Hypertension: Yes (PORTAL) - PULMONARY Hx Respiratory Disorders: No - NEUROLOGICAL Hx Seizures: Yes - HEENT Hx HEENT Problems: No - RENAL Hx Chronic Kidney Disease: No - ENDOCRINE/METABOLIC Hx Endocrine Disorders: No - HEMATOLOGICAL/ONCOLOGICAL Hx Anemia: Yes - INTEGUMENTARY Hx Dermatological Problems: No - MUSCULOSKELETAL/RHEUMATOLOGICAL Hx Fractures: No - GASTROINTESTINAL Hx Gastritis: Yes (+ H. PYLORII) - GENITOURINARY/GYNECOLOGICAL Hx Genitourinary Disorders: No - PSYCHIATRIC Hx Substance Use: No - SURGICAL HISTORY Hx Surgeries: Yes Other/Comment: Endoscopy - ANESTHESIA Hx Anesthesia: Yes Hx Anesthesia Reactions: No Meds Allergies/Adverse Reactions: Allergies Allergy/AdvReac Type Severity Reaction Status Date / Time No Known Allergies Allergy Verified 07/16/17 09:42 - Medications Medications: Current Medications Pantoprazole Sodium (Protonix Inj) 40 mg IVP DAILY [facility] Physical Exam - Constitutional Appears: Well, No Acute Distress - Head Exam Head Exam: ATRAUMATIC, NORMOCEPHALIC - Eye Exam Eye Exam: Normal appearance - ENT Exam ENT Exam: Mucous Membranes Moist, Normal Exam - Respiratory Exam Respiratory Exam: Clear to Auscultation Bilateral, NORMAL BREATHING PATTERN. absent: Rales, Rhonchi, Wheezes, Respiratory Distress - Cardiovascular Exam Cardiovascular Exam: REGULAR RHYTHM, +S1, +S2 - GI/Abdominal Exam GI & Abdominal Exam: Normal Bowel Sounds. absent: Firm, Guarding, Hernia, Rebound, Rigid - Extremities Exam Extremities exam: Negative for: joint swelling, pedal edema - Neurological Exam Neurological exam: Alert, Oriented x3 - Psychiatric Exam Psychiatric exam: Normal Affect, Normal Mood Results - Vital Signs Recent Vital Signs: Last Vital Signs Temp 98.4 F 01/02/18 08:16 Pulse 71 01/02/18 08:16 Resp 20 01/02/18 08:16 BP 124/76 01/02/18 08:16 Pulse Ox 97 01/02/18 08:16 - Labs Result Diagrams: 01/02/18 11:39 01/01/18 20:39 Labs: Laboratory Results - last 24 hr 01/01/18 01/01/18 01/01/18 20:39 20:39 20:39 WBC 4.0 L RBC 2.90 L Hgb 6.7 L D Hct 22.4 L MCV 77.3 L D MCH 23.0 L MCHC 29.7 L RDW 21.5 H Plt Count 40 L MPV 8.6 Neut % (Auto) 80.3 H Lymph % (Auto) 5.2 L [place] % (Auto) 11.7 H Eos % (Auto) 1.0 Baso % (Auto) 1.8 Neut # (Auto) 3.2 Lymph # (Auto) 0.2 L [place] # (Auto) 0.5 Eos # (Auto) 0.0 Baso # (Auto) 0.1 Neutrophils % (Manual) 86 H Lymphocytes % (Manual) 9 L Monocytes % (Manual) 4 Eosinophils % (Manual) 1 Differential Comment Platelet Estimate Markedly decreased L Hypochromasia (manual) Slight Poikilocytosis (manual Slight Anisocytosis (manual) Slight Target Cells Slight Tear Drop Cells Slight Ovalocytes Slight PT 15.4 H INR 1.4 APTT 38 H Sodium 141 Potassium 4.0 Chloride 102 Carbon Dioxide 23 Anion Gap 21 H BUN 3 L Creatinine 0.7 L Est GFR ( Amer) > 60 Est GFR (Non-Af Amer) > 60 Random Glucose 138 H Calcium 7.7 L Iron TIBC % Saturation Total Bilirubin 2.2 H AST 112 H D ALT 43 Alkaline Phosphatase 150 H D Ammonia Total Protein 8.3 Albumin 3.6 Globulin 4.7 H Albumin/Globulin Ratio 0.8 L Lipase 283 Vitamin B12 Folate Stool Occult Blood Blood Type Antibody Screen 01/01/18 01/01/18 01/01/18 20:39 21:34 21:34 WBC RBC Hgb Hct MCV MCH MCHC RDW Plt Count MPV Neut % (Auto) Lymph % (Auto) [place] % (Auto) Eos % (Auto) Baso % (Auto) Neut # (Auto) Lymph # (Auto) [place] # (Auto) Eos # (Auto) Baso # (Auto) Neutrophils % (Manual) Lymphocytes % (Manual) Monocytes % (Manual) Eosinophils % (Manual) Differential Comment Platelet Estimate Hypochromasia (manual) Poikilocytosis (manual Anisocytosis (manual) Target Cells Tear Drop Cells Ovalocytes PT INR APTT Sodium Potassium Chloride Carbon Dioxide Anion Gap BUN Creatinine Est GFR ( Amer) Est GFR (Non-Af Amer) Random Glucose Calcium Iron TIBC % Saturation Total Bilirubin AST ALT Alkaline Phosphatase Ammonia 25 D Total Protein Albumin Globulin Albumin/Globulin Ratio Lipase Vitamin B12 Folate Stool Occult Blood Positive H Blood Type O POSITIVE Antibody Screen Negative 01/01/18 01/01/18 21:52 21:52 WBC RBC Hgb Hct MCV MCH MCHC RDW Plt Count MPV Neut % (Auto) Lymph % (Auto) [place] % (Auto) Eos % (Auto) Baso % (Auto) Neut # (Auto) Lymph # (Auto) [place] # (Auto) Eos # (Auto) Baso # (Auto) Neutrophils % (Manual) Lymphocytes % (Manual) Monocytes % (Manual) Eosinophils % (Manual) Differential Comment Platelet Estimate Hypochromasia (manual) Poikilocytosis (manual Anisocytosis (manual) Target Cells Tear Drop Cells Ovalocytes PT INR APTT Sodium Potassium Chloride Carbon Dioxide Anion Gap BUN Creatinine Est GFR ( Amer) Est GFR (Non-Af Amer) Random Glucose Calcium Iron 18 L TIBC 365 % Saturation 5 L Total Bilirubin AST ALT Alkaline Phosphatase Ammonia Total Protein Albumin Globulin Albumin/Globulin Ratio Lipase Vitamin B12 900 Folate 7.4 Stool Occult Blood Blood Type Antibody Screen Assessment & Plan - Assessment and Plan (Free Text) Assessment: This is a 42yM presenting with complaints of abdominal distention, recent melena ?. Microcytic Anemia Alcoholic Hepatitis DF 17 Cirrhosis 2/2 ETOH MELD 13 Etoh Abuse Transaminitis Plan: -Continue supportive care -s/p 1 unit PRBC, 1 unit plat pending -Monitor H/H and transfuse as needed -Continue PPI BID -will start abx if source is varceal -NPO -Monitor LFTs -Plan for endoscopy today -Will continue to follow pt closely D/W Dr. Corona <Erich Corona - Last Filed: 01/02/18 11:56> Meds - Medications Medications: Current Medications Pantoprazole Sodium (Protonix Inj) 40 mg IVP DAILY [facility] Last Admin: 01/02/18 11:00 Dose: 40 mg Results - Vital Signs Recent Vital Signs: Last Vital Signs Temp 98.5 F 01/02/18 11:00 Pulse 79 01/02/18 11:00 Resp 20 01/02/18 11:00 BP 131/83 01/02/18 11:00 Pulse Ox 100 01/02/18 11:00 - Labs Result Diagrams: 01/02/18 11:39 01/01/18 20:39 Labs: Laboratory Results - last 24 hr 01/01/18 01/01/18 01/01/18 20:39 20:39 20:39 WBC 4.0 L RBC 2.90 L Hgb 6.7 L D Hct 22.4 L MCV 77.3 L D MCH 23.0 L MCHC 29.7 L RDW 21.5 H Plt Count 40 L MPV 8.6 Neut % (Auto) 80.3 H Lymph % (Auto) 5.2 L [place] % (Auto) 11.7 H Eos % (Auto) 1.0 Baso % (Auto) 1.8 Neut # (Auto) 3.2 Lymph # (Auto) 0.2 L [place] # (Auto) 0.5 Eos # (Auto) 0.0 Baso # (Auto) 0.1 Neutrophils % (Manual) 86 H Lymphocytes % (Manual) 9 L Monocytes % (Manual) 4 Eosinophils % (Manual) 1 Differential Comment Platelet Estimate Markedly decreased L Hypochromasia (manual) Slight Poikilocytosis (manual Slight Anisocytosis (manual) Slight Target Cells Slight Tear Drop Cells Slight Ovalocytes Slight PT 15.4 H INR 1.4 APTT 38 H Sodium 141 Potassium 4.0 Chloride 102 Carbon Dioxide 23 Anion Gap 21 H BUN 3 L Creatinine 0.7 L Est GFR ( Amer) > 60 Est GFR (Non-Af Amer) > 60 Random Glucose 138 H Calcium 7.7 L Iron TIBC % Saturation Total Bilirubin 2.2 H AST 112 H D ALT 43 Alkaline Phosphatase 150 H D Ammonia Total Protein 8.3 Albumin 3.6 Globulin 4.7 H Albumin/Globulin Ratio 0.8 L Lipase 283 Vitamin B12 Folate Stool Occult Blood Blood Type Antibody Screen 01/01/18 01/01/18 01/01/18 20:39 21:34 21:34 WBC RBC Hgb Hct MCV MCH MCHC RDW Plt Count MPV Neut % (Auto) Lymph % (Auto) [place] % (Auto) Eos % (Auto) Baso % (Auto) Neut # (Auto) Lymph # (Auto) [place] # (Auto) Eos # (Auto) Baso # (Auto) Neutrophils % (Manual) Lymphocytes % (Manual) Monocytes % (Manual) Eosinophils % (Manual) Differential Comment Platelet Estimate Hypochromasia (manual) Poikilocytosis (manual Anisocytosis (manual) Target Cells Tear Drop Cells Ovalocytes PT INR APTT Sodium Potassium Chloride Carbon Dioxide Anion Gap BUN Creatinine Est GFR ( Amer) Est GFR (Non-Af Amer) Random Glucose Calcium Iron TIBC % Saturation Total Bilirubin AST ALT Alkaline Phosphatase Ammonia 25 D Total Protein Albumin Globulin Albumin/Globulin Ratio Lipase Vitamin B12 Folate Stool Occult Blood Positive H Blood Type O POSITIVE Antibody Screen Negative 01/01/18 01/01/18 01/02/18 21:52 21:52 11:39 WBC 3.3 L RBC 3.07 L Hgb 7.4 L Hct 24.3 L MCV 79.2 L MCH 24.1 L MCHC 30.4 L RDW 19.4 H Plt Count 28 L* D MPV 8.3 Neut % (Auto) Lymph % (Auto) [place] % (Auto) Eos % (Auto) Baso % (Auto) Neut # (Auto) Lymph # (Auto) [place] # (Auto) Eos # (Auto) Baso # (Auto) Neutrophils % (Manual) Lymphocytes % (Manual) Monocytes % (Manual) Eosinophils % (Manual) Differential Comment Platelet Estimate Hypochromasia (manual) Poikilocytosis (manual Anisocytosis (manual) Target Cells Tear Drop Cells Ovalocytes PT INR APTT Sodium Potassium Chloride Carbon Dioxide Anion Gap BUN Creatinine Est GFR ( Amer) Est GFR (Non-Af Amer) Random Glucose Calcium Iron 18 L TIBC 365 % Saturation 5 L Total Bilirubin AST ALT Alkaline Phosphatase Ammonia Total Protein Albumin Globulin Albumin/Globulin Ratio Lipase Vitamin B12 900 Folate 7.4 Stool Occult Blood Blood Type Antibody Screen Attending/Attestation - Attestation I have personally seen and examined this patient.: Yes I have fully participated in the care of the patient.: Yes I have reviewed all pertinent clinical information: Yes Notes (Text): 01/02/18 0800 42 year old male with h/o Etoh abuse, cirrhosis and varices admitted with worsening anemia. Recommend EGD today for further evaluation.
[2018-01-02] MEDS ORDERED: Propofol 10 mg/ml Inj (20 ML) ONE ×2 (09:43)
[2018-01-02] MEDS ORDERED: cefTRIAXone IV 1 gm in Dextros 50 ML IVPB ONE (10:00)
[2018-01-02 11:42] LABS: HEMOGLOBIN 7.4 g/dL (12.0-18.0); MEAN PLATELET VOLUME 8.3 fL (7.2-11.7); WHITE BLOOD COUNT 3.3 K/uL (4.8-10.8)
[2018-01-02 11:48] LABS: MEAN CELL VOLUME 79.2 fL (80.0-94.0); MEAN CORPUSCULAR HEMOGLOBIN 24.1 pg (27.0-31.0); MEAN CORPUSCULAR HGB CONC 30.4 g/dL (33.0-37.0); RBC 3.07 Mil/uL (4.40-5.90); RED CELL DISTRIBUTION WIDTH 19.4 % (11.5-14.5)
--- NOTE | 2018-01-02 18:20 | CP.PCM.HP ---
Past Patient History - Infectious Disease Hx of Infectious Diseases: None - Past Medical History & Family History Past Medical History?: Yes - Past Social History Smoking Status: Never Smoked - CARDIAC Hx Hypertension: Yes (PORTAL) - PULMONARY Hx Respiratory Disorders: No - NEUROLOGICAL Hx Seizures: Yes - HEENT Hx HEENT Problems: No - RENAL Hx Chronic Kidney Disease: No - ENDOCRINE/METABOLIC Hx Endocrine Disorders: No - HEMATOLOGICAL/ONCOLOGICAL Hx Anemia: Yes - INTEGUMENTARY Hx Dermatological Problems: No - MUSCULOSKELETAL/RHEUMATOLOGICAL Hx Fractures: No - GASTROINTESTINAL Hx Gastritis: Yes (+ H. PYLORII) - GENITOURINARY/GYNECOLOGICAL Hx Genitourinary Disorders: No - PSYCHIATRIC Hx Substance Use: No - SURGICAL HISTORY Hx Surgeries: Yes Other/Comment: Endoscopy - ANESTHESIA Hx Anesthesia: Yes Hx Anesthesia Reactions: No Meds Allergies/Adverse Reactions: Allergies Allergy/AdvReac Type Severity Reaction Status Date / Time No Known Allergies Allergy Verified 07/16/17 09:42 Physical Exam - Constitutional Appears: Well - Head Exam Head Exam: ATRAUMATIC, NORMAL INSPECTION, NORMOCEPHALIC - Eye Exam Eye Exam: EOMI, Normal appearance, PERRL Pupil Exam: NORMAL ACCOMODATION, PERRL - ENT Exam ENT Exam: Mucous Membranes Moist, Normal Exam - Neck Exam Neck exam: Positive for: Normal Inspection - Respiratory Exam Respiratory Exam: Decreased Breath Sounds - Cardiovascular Exam Cardiovascular Exam: REGULAR RHYTHM, +S1, +S2 - GI/Abdominal Exam GI & Abdominal Exam: Diminished Bowel Sounds, Soft - Rectal Exam Rectal Exam: Deferred Results - Vital Signs Recent Vital Signs: Last Vital Signs Temp 99.8 F H 01/02/18 16:33 Pulse 99 H 01/02/18 16:00 Resp 20 01/02/18 15:25 BP 115/69 01/02/18 15:25 Pulse Ox 98 01/02/18 15:00 - Labs Result Diagrams: 01/02/18 11:39 01/01/18 20:39 Labs: Laboratory Results - last 24 hr 01/01/18 01/01/18 01/01/18 20:39 20:39 20:39 WBC 4.0 L RBC 2.90 L Hgb 6.7 L D Hct 22.4 L MCV 77.3 L D MCH 23.0 L MCHC 29.7 L RDW 21.5 H Plt Count 40 L MPV 8.6 Neut % (Auto) 80.3 H Lymph % (Auto) 5.2 L O'Brien % (Auto) 11.7 H Eos % (Auto) 1.0 Baso % (Auto) 1.8 Neut # (Auto) 3.2 Lymph # (Auto) 0.2 L O'Brien # (Auto) 0.5 Eos # (Auto) 0.0 Baso # (Auto) 0.1 Neutrophils % (Manual) 86 H Lymphocytes % (Manual) 9 L Monocytes % (Manual) 4 Eosinophils % (Manual) 1 Differential Comment Platelet Estimate Markedly decreased L Hypochromasia (manual) Slight Poikilocytosis (manual Slight Anisocytosis (manual) Slight Target Cells Slight Tear Drop Cells Slight Ovalocytes Slight PT 15.4 H INR 1.4 APTT 38 H Sodium 141 Potassium 4.0 Chloride 102 Carbon Dioxide 23 Anion Gap 21 H BUN 3 L Creatinine 0.7 L Est GFR ( Amer) > 60 Est GFR (Non-Af Amer) > 60 Random Glucose 138 H Calcium 7.7 L Iron TIBC % Saturation Total Bilirubin 2.2 H AST 112 H D ALT 43 Alkaline Phosphatase 150 H D Ammonia Troponin I Total Protein 8.3 Albumin 3.6 Globulin 4.7 H Albumin/Globulin Ratio 0.8 L Lipase 283 Vitamin B12 Folate Stool Occult Blood Blood Type Antibody Screen 01/01/18 01/01/18 01/01/18 20:39 21:34 21:34 WBC RBC Hgb Hct MCV MCH MCHC RDW Plt Count MPV Neut % (Auto) Lymph % (Auto) O'Brien % (Auto) Eos % (Auto) Baso % (Auto) Neut # (Auto) Lymph # (Auto) O'Brien # (Auto) Eos # (Auto) Baso # (Auto) Neutrophils % (Manual) Lymphocytes % (Manual) Monocytes % (Manual) Eosinophils % (Manual) Differential Comment Platelet Estimate Hypochromasia (manual) Poikilocytosis (manual Anisocytosis (manual) Target Cells Tear Drop Cells Ovalocytes PT INR APTT Sodium Potassium Chloride Carbon Dioxide Anion Gap BUN Creatinine Est GFR ( Amer) Est GFR (Non-Af Amer) Random Glucose Calcium Iron TIBC % Saturation Total Bilirubin AST ALT Alkaline Phosphatase Ammonia 25 D Troponin I Total Protein Albumin Globulin Albumin/Globulin Ratio Lipase Vitamin B12 Folate Stool Occult Blood Positive H Blood Type O POSITIVE Antibody Screen Negative 01/01/18 01/01/18 01/02/18 21:52 21:52 11:39 WBC 3.3 L RBC 3.07 L Hgb 7.4 L Hct 24.3 L MCV 79.2 L MCH 24.1 L MCHC 30.4 L RDW 19.4 H Plt Count 28 L* D MPV 8.3 Neut % (Auto) Lymph % (Auto) O'Brien % (Auto) Eos % (Auto) Baso % (Auto) Neut # (Auto) Lymph # (Auto) O'Brien # (Auto) Eos # (Auto) Baso # (Auto) Neutrophils % (Manual) Lymphocytes % (Manual) Monocytes % (Manual) Eosinophils % (Manual) Differential Comment Platelet Estimate Hypochromasia (manual) Poikilocytosis (manual Anisocytosis (manual) Target Cells Tear Drop Cells Ovalocytes PT INR APTT Sodium Potassium Chloride Carbon Dioxide Anion Gap BUN Creatinine Est GFR ( Amer) Est GFR (Non-Af Amer) Random Glucose Calcium Iron 18 L TIBC 365 % Saturation 5 L Total Bilirubin AST ALT Alkaline Phosphatase Ammonia Troponin I Total Protein Albumin Globulin Albumin/Globulin Ratio Lipase Vitamin B12 900 Folate 7.4 Stool Occult Blood Blood Type Antibody Screen 01/02/18 14:10 WBC RBC Hgb Hct MCV MCH MCHC RDW Plt Count MPV Neut % (Auto) Lymph % (Auto) O'Brien % (Auto) Eos % (Auto) Baso % (Auto) Neut # (Auto) Lymph # (Auto) O'Brien # (Auto) Eos # (Auto) Baso # (Auto) Neutrophils % (Manual) Lymphocytes % (Manual) Monocytes % (Manual) Eosinophils % (Manual) Differential Comment Platelet Estimate Hypochromasia (manual) Poikilocytosis (manual Anisocytosis (manual) Target Cells Tear Drop Cells Ovalocytes PT INR APTT Sodium Potassium Chloride Carbon Dioxide Anion Gap BUN Creatinine Est GFR ( Amer) Est GFR (Non-Af Amer) Random Glucose Calcium Iron TIBC % Saturation Total Bilirubin AST ALT Alkaline Phosphatase Ammonia Troponin I < 0.0120 Total Protein Albumin Globulin Albumin/Globulin Ratio Lipase Vitamin B12 Folate Stool Occult Blood Blood Type Antibody Screen
[2018-01-02 19:07] LABS: URINE BILIRUBIN NEGATIVE (NEGATIVE); URINE BLOOD NEGATIVE (NEGATIVE); URINE CLARITY Clear (Clear); URINE COLOR Yellow (YELLOW); URINE GLUCOSE (UA) NORMAL (Normal); URINE LEUKOCYTE ESTERASE NEG Leu/uL (Negative); URINE PROTEIN NEGATIVE (NEGATIVE); URINE UROBILINOGEN NORMAL mg/dL (0.2-1.0)
[2018-01-02 20:26] LABS: BASO # 0.1 K/uL (0.0-0.2); BASO % 1.5 % (0.0-2.0); EOS % 0.2 % (0.0-4.0); HEMOGLOBIN 6.9 g/dL (12.0-18.0); LYMPH # 0.3 K/uL (1.0-4.3); LYMPH % 4.4 % (20.0-40.0); MEAN CELL VOLUME 77.5 fL (80.0-94.0); MEAN CORPUSCULAR HEMOGLOBIN 23.8 pg (27.0-31.0); MEAN CORPUSCULAR HGB CONC 30.7 g/dL (33.0-37.0); MEAN PLATELET VOLUME 8.4 fL (7.2-11.7); MONO # 0.4 K/uL (0.0-0.8); MONO % 6.7 % (0.0-10.0); NEUT # 5.5 K/uL (1.8-7.0); NEUT % 87.2 % (50.0-75.0); NRBC % 0.5 % (0.0-2.0); PLATELET COUNT 49 K/uL (130-400); RBC 2.91 Mil/uL (4.40-5.90); RED CELL DISTRIBUTION WIDTH 19.6 % (11.5-14.5); WHITE BLOOD COUNT 6.3 K/uL (4.8-10.8)
[2018-01-02 21:56] LABS: BANDS 3 % (0-2); LYMPHOCYTE 4 % (20-40); MONOCYTE 5 % (0-10); NEUTROPHIL 88 % (50-75); TOTAL CELLS COUNTED 100
[2018-01-02 21:57] LABS: ANISOCYTOSIS SLIGHT; HYPOCHROMIC MODERATE; MICROCYTOSIS SLIGHT; PLATELET ESTIMATE MARKEDLY DECREASED (NORMAL); POIKILOCYTOSIS SLIGHT; POLYCHROMIC SLIGHT; TARGET CELLS SLIGHT
[2018-01-03 07:32] LABS: HEMOGLOBIN 7.4 g/dL (12.0-18.0); MEAN CELL VOLUME 77.8 fL (80.0-94.0); MEAN CORPUSCULAR HEMOGLOBIN 24.1 pg (27.0-31.0); MEAN PLATELET VOLUME 8.8 fL (7.2-11.7); RBC 3.08 Mil/uL (4.40-5.90); WHITE BLOOD COUNT 9.5 K/uL (4.8-10.8)
--- NOTE | 2018-01-03 08:28 | RAD ---
HISTORY: COMPARISON: 01/01/2018. TECHNIQUE: Chest PA and lateral FINDINGS: LINES AND TUBES: None. LUNG AND PLEURA: The right lungs is well inflated and clear. There is stable appearance of a thin-walled bulla in the left apex. HEART AND MEDIASTINUM: The heart is not enlarged. The hilar and mediastinal contours are within normal limits. SKELETAL STRUCTURES: The bony structures are within normal limits for the patient's age. VISUALIZED UPPER ABDOMEN: Normal. OTHER FINDINGS: None. IMPRESSION: No acute findings. No change.
--- NOTE | 2018-01-03 08:46 | CP.PCM.PN ---
<Viktoriya Leroy - Last Filed: 01/03/18 09:37> Subjective - Date & Time of Evaluation Date of Evaluation: 01/03/18 Time of Evaluation: 08:00 - Subjective Subjective: PGY4 GI Follow-up Pt seen and examined bedside Denies any abd pain, but still notes distention +small BM tolerating clears Denies any melena, hematemesis, or coffee-ground emesis ROS: 10 point ROS conducted, neg other than above Objective - Vital Signs/Intake and Output Vital Signs (last 24 hours): Temp Pulse Resp BP Pulse Ox 100.7 F H 86 20 100/75 99 01/03/18 08:37 01/03/18 08:37 01/03/18 08:37 01/03/18 08:37 01/03/18 08:37 Intake and Output: 01/03/18 01/03/18 06:59 18:59 Intake Total 240 Balance 240 - Medications Medications: Current Medications Acetaminophen (Tylenol 325mg Tab) 650 mg PO Q12 PRN PRN Reason: Pain, severe (8-10) Last Admin: 01/03/18 05:47 Dose: 650 mg Ferric Sodium Gluconate Complex (Ferrlecit) 125 mg IVPB DAILY [facility] Stop: 01/08/18 10:01 Azithromycin 500 mg/ Sodium (Chloride) 250 mls @ 250 mls/hr IVPB DAILY [facility] PRN Reason: Protocol Ceftriaxone Sodium 1 gm/ (Sodium Chloride) 100 mls @ 100 mls/hr IVPB DAILY [facility] PRN Reason: Protocol Pantoprazole Sodium (Protonix Inj) 40 mg IVP DAILY [facility] Last Admin: 01/02/18 11:00 Dose: 40 mg - Labs Labs: 01/03/18 07:19 01/01/18 20:39 PT 15.4 SECONDS (9.7-12.2) H 01/01/18 20:39 INR 1.4 01/01/18 20:39 APTT 38 SECONDS (21-34) H 01/01/18 20:39 - Constitutional Appears: Well, No Acute Distress - Head Exam Head Exam: ATRAUMATIC, NORMOCEPHALIC - Eye Exam Eye Exam: Normal appearance - ENT Exam ENT Exam: Mucous Membranes Moist, Normal Exam - Respiratory Exam Respiratory Exam: Clear to Ausculation Bilateral, NORMAL BREATHING PATTERN. absent: Rales, Rhonchi, Wheezes, Respiratory Distress - Cardiovascular Exam Cardiovascular Exam: REGULAR RHYTHM, +S1, +S2 - GI/Abdominal Exam GI & Abdominal Exam: Distended, Normal Bowel Sounds. absent: Guarding, Rigid, Tenderness - Extremities Exam Extremities Exam: absent: Joint Swelling, Pedal Edema - Neurological Exam Neurological Exam: Alert, Awake, Oriented x3 - Psychiatric Exam Psychiatric exam: Normal Affect, Normal Mood - Skin Skin Exam: Dry, Intact, Normal Color, Warm Assessment and Plan - Assessment and Plan (Free Text) Assessment: This is a 42yM presenting with complaints of abdominal distention, recent melena ?. 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 Martel <Danyel Martel Y - Last Filed: 01/03/18 09:48> Objective - Vital Signs/Intake and Output Vital Signs (last 24 hours): Temp Pulse Resp BP Pulse Ox 100.7 F H 86 20 100/75 99 01/03/18 08:37 01/03/18 08:37 01/03/18 08:37 01/03/18 08:37 01/03/18 08:37 Intake and Output: 01/03/18 01/03/18 06:59 18:59 Intake Total 240 Balance 240 - Medications Medications: Current Medications Acetaminophen (Tylenol 325mg Tab) 650 mg PO Q12 PRN PRN Reason: Pain, severe (8-10) Last Admin: 01/03/18 05:47 Dose: 650 mg Ferric Sodium Gluconate Complex (Ferrlecit) 125 mg IVPB DAILY [facility] Stop: 01/08/18 10:01 Azithromycin 500 mg/ Sodium (Chloride) 250 mls @ 250 mls/hr IVPB QNOON [facility] PRN Reason: Protocol Ceftriaxone Sodium 1 gm/ (Sodium Chloride) 100 mls @ 100 mls/hr IVPB DAILY [facility] PRN Reason: Protocol Last Admin: 01/03/18 09:34 Dose: 100 mls/hr Pantoprazole Sodium (Protonix Inj) 40 mg IVP DAILY [facility] Last Admin: 01/03/18 09:34 Dose: 40 mg - Labs Labs: 01/03/18 07:19 01/01/18 20:39 PT 15.4 SECONDS (9.7-12.2) H 01/01/18 20:39 INR 1.4 01/01/18 20:39 APTT 38 SECONDS (21-34) H 01/01/18 20:39 Attending/Attestation - Attestation I have personally seen and examined this patient.: Yes I have fully participated in the care of the patient.: Yes I have reviewed all pertinent clinical information, including history, physical exam and plan: Yes Notes (Text): 01/03/18 09:44 I have seen and examined patient with GI fellow. No acute events overnight, he is seen resting in bed comfortably, at bedside. He denies abdominal pain, nausea, vomiting, fever/chills. Tolerating PO liquids without difficulty. Review of vitals shows low grade temperature this morning with Tmax of 101.7 overnight. ETOH decompensated cirrhosis Chronic anemia Transaminitis, acute ETOH hepatitis - Low sodium diet as tolerated - Continue with antibiotic therapy, obtain blood cultures. Follow up ID recommendations. - Obtain abdominal US, r/o ascites. If present, will require paracentesis for further evaluation of potential SBP given ongoing fever. - H/H stable, continue to monitor - Continue with PPI therapy - Will continue to monitor patient clinical course
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
[2018-01-03 09:59] LABS: INR 1.7; PROTHROMBIN TIME 19.8 SECONDS (9.7-12.2)
[2018-01-03 10:02] LABS: ALB/GLOB RATIO 0.8 (1.0-2.1); ALBUMIN 3.3 g/dL (3.5-5.0); ALT/SGPT 37 U/L (21-72); AST/SGOT 82 U/L (17-59); BLOOD UREA NITROGEN 4 mg/dL (9-20); CALCIUM 7.9 mg/dl (8.6-10.4); GFR AFRICAN-AMERICAN > 60; GFR NON-AFRICAN AMERICAN > 60
[2018-01-03] MEDS: Ferric Sodium Gluconat Complex 62.5 mg/5 ml Vial IVPB SCH (10:47)
--- NOTE | 2018-01-03 11:25 | US ---
HISTORY: r/o ascities, eval port flow COMPARISON: None. TECHNIQUE: Grayscale imaging was performed. FINDINGS: LIVER: Measures 17.1 cm. There is diffuse increased echogenicity of the liver parenchyma with nodular contour. No discrete mass. No intrahepatic bile duct dilatation. The portal vein is patent with normal direction of flow. GALLBLADDER: There are no gallstones or pericholecystic fluid. There is mild secondary gallbladder wall edema related to hepatic disease. COMMON BILE DUCT: Measures 4.4 mm. No stones. No dilatation. PANCREAS: Unremarkable as visualized. No mass. No ductal dilatation. RIGHT KIDNEY: Measures 10.1cm. Normal echogenicity. No calculus, mass, or hydronephrosis. LEFT KIDNEY: Measures 10.2cm. Normal echogenicity. No calculus, mass, or hydronephrosis. SPLEEN: Enlarged and measures 15.6 cm. AORTA: No aneurysmal dilatation. IVC: Unremarkable. OTHER FINDINGS: There is moderate abdominal ascites. IMPRESSION: Cirrhosis of liver, mild splenomegaly and moderate ascites. Portal vein is patent with normal direction of flow.
[2018-01-03] MEDS: Azithromycin 500 MG in Sodium Chloride 0.9% 250 ML IVPB SCH (11:53)
--- NOTE | 2018-01-03 13:36 | CP.PCM.PN ---
Subjective - Date & Time of Evaluation Date of Evaluation: 01/03/18 Time of Evaluation: 08:20 - Subjective Subjective: clinically same Objective - Vital Signs/Intake and Output Vital Signs (last 24 hours): Temp Pulse Resp BP Pulse Ox 100.8 F H 86 20 100/75 99 01/03/18 08:40 01/03/18 08:37 01/03/18 08:37 01/03/18 08:37 01/03/18 08:37 Intake and Output: 01/03/18 01/03/18 06:59 18:59 Intake Total 240 Balance 240 - Medications Medications: Current Medications Acetaminophen (Tylenol 325mg Tab) 650 mg PO Q12 PRN PRN Reason: Pain, severe (8-10) Last Admin: 01/03/18 05:47 Dose: 650 mg Ferric Sodium Gluconate Complex (Ferrlecit) 125 mg IVPB DAILY [facility] Stop: 01/08/18 10:01 Last Admin: 01/03/18 10:47 Dose: 125 mg Azithromycin 500 mg/ Sodium (Chloride) 250 mls @ 250 mls/hr IVPB QNOON [facility] PRN Reason: Protocol Last Admin: 01/03/18 11:53 Dose: 250 mls/hr Ceftriaxone Sodium 1 gm/ (Sodium Chloride) 100 mls @ 100 mls/hr IVPB DAILY [facility] PRN Reason: Protocol Last Admin: 01/03/18 09:34 Dose: 100 mls/hr Pantoprazole Sodium (Protonix Inj) 40 mg IVP DAILY [facility] Last Admin: 01/03/18 09:34 Dose: 40 mg - Labs Labs: 01/03/18 07:19 01/03/18 09:42 PT 19.8 SECONDS (9.7-12.2) H 01/03/18 09:42 INR 1.7 01/03/18 09:42 APTT 38 SECONDS (21-34) H 01/01/18 20:39 - Constitutional Appears: Well - Head Exam Head Exam: ATRAUMATIC, NORMAL INSPECTION, NORMOCEPHALIC - Eye Exam Eye Exam: EOMI, Normal appearance, PERRL Pupil Exam: NORMAL ACCOMODATION, PERRL - ENT Exam ENT Exam: Mucous Membranes Moist, Normal Exam - Neck Exam Neck Exam: Full ROM, Normal Inspection. absent: Lymphadenopathy - Respiratory Exam Respiratory Exam: Decreased Breath Sounds - Cardiovascular Exam Cardiovascular Exam: REGULAR RHYTHM, +S1, +S2 - GI/Abdominal Exam GI & Abdominal Exam: Soft, Diminished Bowel Sounds - Rectal Exam Rectal Exam: Deferred
[2018-01-03] MEDS ORDERED: Potassium Chloride 20 mEq ER Tab PO ONE (13:49)
[2018-01-03 15:04] LABS: BASO # 0.1 K/uL (0.0-0.2); BASO % 0.7 % (0.0-2.0); EOS # 0.1 K/uL (0.0-0.7); EOS % 0.8 % (0.0-4.0); HEMOGLOBIN 7.4 g/dL (12.0-18.0); LYMPH # 1.3 K/uL (1.0-4.3); LYMPH % 12.9 % (20.0-40.0); MEAN CELL VOLUME 79.4 fL (80.0-94.0); MEAN CORPUSCULAR HEMOGLOBIN 23.8 pg (27.0-31.0); MEAN PLATELET VOLUME 8.6 fL (7.2-11.7); MONO # 0.9 K/uL (0.0-0.8); NEUT # 7.8 K/uL (1.8-7.0); NEUT % 76.6 % (50.0-75.0); NRBC % 0.1 % (0.0-2.0); RBC 3.11 Mil/uL (4.40-5.90); RED CELL DISTRIBUTION WIDTH 19.5 % (11.5-14.5); WHITE BLOOD COUNT 10.2 K/uL (4.8-10.8)
[2018-01-03 15:15] LABS: ALB/GLOB RATIO 0.7 (1.0-2.1); ALBUMIN 3.3 g/dL (3.5-5.0); ALT/SGPT 35 U/L (21-72); AST/SGOT 73 U/L (17-59); BLOOD UREA NITROGEN 4 mg/dL (9-20); CALCIUM 7.7 mg/dl (8.6-10.4); GFR AFRICAN-AMERICAN > 60; GFR NON-AFRICAN AMERICAN > 60
[2018-01-03] MEDS ORDERED: Multivitamin (MVI) 10 ML, Thiamine 100 MG, Folic Acid 1 MG in Sodium Chloride 0.9% 1,00... IV ONE (16:07)
--- NOTE | 2018-01-03 17:05 | CP.PCM.CON ---
History of Present Illness - History of Present Illness History of Present Illness: dictated Past Patient History - Infectious Disease Hx of Infectious Diseases: None - Past Medical History & Family History Past Medical History?: Yes - Past Social History Smoking Status: Never Smoked - CARDIAC Hx Hypertension: Yes (PORTAL) - PULMONARY Hx Respiratory Disorders: No - NEUROLOGICAL Hx Seizures: Yes - HEENT Hx HEENT Problems: No - RENAL Hx Chronic Kidney Disease: No - ENDOCRINE/METABOLIC Hx Endocrine Disorders: No - HEMATOLOGICAL/ONCOLOGICAL Hx Anemia: Yes - INTEGUMENTARY Hx Dermatological Problems: No - MUSCULOSKELETAL/RHEUMATOLOGICAL Hx Fractures: No - GASTROINTESTINAL Hx Gastritis: Yes (+ H. PYLORII) - GENITOURINARY/GYNECOLOGICAL Hx Genitourinary Disorders: No - PSYCHIATRIC Hx Substance Use: No - SURGICAL HISTORY Hx Surgeries: Yes Other/Comment: Endoscopy - ANESTHESIA Hx Anesthesia: Yes Hx Anesthesia Reactions: No Meds Allergies/Adverse Reactions: Allergies Allergy/AdvReac Type Severity Reaction Status Date / Time No Known Allergies Allergy Verified 07/16/17 09:42 - Medications Medications: Current Medications Acetaminophen (Tylenol 325mg Tab) 650 mg PO Q12 PRN PRN Reason: Pain, severe (8-10) Last Admin: 01/03/18 05:47 Dose: 650 mg Chlordiazepoxide (Librium) 25 mg PO BID COUNTS INCLUDE 234 BEDS AT THE [facility] Ferric Sodium Gluconate Complex (Ferrlecit) 125 mg IVPB DAILY COUNTS INCLUDE 234 BEDS AT THE [facility] Stop: 01/08/18 10:01 Last Admin: 01/03/18 10:47 Dose: 125 mg Azithromycin 500 mg/ Sodium (Chloride) 250 mls @ 250 mls/hr IVPB QNOON [facility] PRN Reason: Protocol Last Admin: 01/03/18 11:53 Dose: 250 mls/hr Ceftriaxone Sodium 1 gm/ (Sodium Chloride) 100 mls @ 100 mls/hr IVPB DAILY [facility] PRN Reason: Protocol Last Admin: 01/03/18 09:34 Dose: 100 mls/hr Potassium Chloride (Potassium Chloride 20 Meq/100 Ml) 20 meq in 100 mls @ 50 mls/hr IVPB Q2 [facility] Stop: 01/03/18 21:59 Multivitamins/Vitamin C 10 ml/Thiamine HCl 100 mg/ Folic Acid 1 mg/ Sodium Chloride 1,011.2 mls @ 100 mls/hr IV .Q10H7M ONE Stop: 01/04/18 02:13 Pantoprazole Sodium (Protonix Inj) 40 mg IVP DAILY [facility] Last Admin: 01/03/18 09:34 Dose: 40 mg Results - Vital Signs Recent Vital Signs: Last Vital Signs Temp 98.4 F 01/03/18 15:07 Pulse 96 H 01/03/18 15:07 Resp 20 01/03/18 15:07 BP 120/80 01/03/18 15:07 Pulse Ox 100 01/03/18 15:07 - Labs Result Diagrams: 01/03/18 14:56 01/03/18 14:56 Labs: Laboratory Results - last 24 hr 01/01/18 01/02/18 01/02/18 21:34 18:57 20:05 WBC 6.3 D RBC 2.91 L Hgb 6.9 L Hct 22.5 L MCV 77.5 L MCH 23.8 L MCHC 30.7 L RDW 19.6 H Plt Count 49 L D MPV 8.4 Neut % (Auto) 87.2 H Lymph % (Auto) 4.4 L Mason % (Auto) 6.7 Eos % (Auto) 0.2 Baso % (Auto) 1.5 Neut # (Auto) 5.5 Lymph # (Auto) 0.3 L Mason # (Auto) 0.4 Eos # (Auto) 0.0 Baso # (Auto) 0.1 Neutrophils % (Manual) 88 H Band Neutrophils % 3 H Lymphocytes % (Manual) 4 L Monocytes % (Manual) 5 Platelet Estimate Markedly decreased L Polychromasia Slight Hypochromasia (manual) Moderate Poikilocytosis (manual Slight Anisocytosis (manual) Slight Microcytosis (manual) Slight Macrocytosis (manual) Slight Target Cells Slight PT INR Sodium Potassium Chloride Carbon Dioxide Anion Gap BUN Creatinine Est GFR ( Amer) Est GFR (Non-Af Amer) POC Glucose (mg/dL) Random Glucose Lactic Acid Calcium Phosphorus Magnesium Total Bilirubin AST ALT Alkaline Phosphatase Ammonia Total Protein Albumin Globulin Albumin/Globulin Ratio Urine Color Yellow Urine Clarity Clear Urine pH 7.0 Ur Specific Elsa 1.011 Urine Protein Negative Urine Glucose (UA) Normal Urine Ketones Negative Urine Blood Negative Urine Nitrate Negative Urine Bilirubin Negative Urine Urobilinogen Normal Ur Leukocyte Esterase Neg Urine WBC (Auto) < 1 Urine RBC (Auto) < 1 Blood Type O POSITIVE Antibody Screen Negative 01/03/18 01/03/18 01/03/18 07:19 09:42 09:42 WBC 9.5 D RBC 3.08 L Hgb 7.4 L Hct 24.0 L MCV 77.8 L MCH 24.1 L MCHC 31.0 L RDW 20.0 H Plt Count 40 L MPV 8.8 Neut % (Auto) Lymph % (Auto) Mason % (Auto) Eos % (Auto) Baso % (Auto) Neut # (Auto) Lymph # (Auto) Mason # (Auto) Eos # (Auto) Baso # (Auto) Neutrophils % (Manual) Band Neutrophils % Lymphocytes % (Manual) Monocytes % (Manual) Platelet Estimate Polychromasia Hypochromasia (manual) Poikilocytosis (manual Anisocytosis (manual) Microcytosis (manual) Macrocytosis (manual) Target Cells PT 19.8 H INR 1.7 Sodium 132 Potassium 3.5 L Chloride 97 L Carbon Dioxide 21 L Anion Gap 18 BUN 4 L Creatinine 0.6 L Est GFR ( Amer) > 60 Est GFR (Non-Af Amer) > 60 POC Glucose (mg/dL) Random Glucose 177 H Lactic Acid Calcium 7.9 L Phosphorus Magnesium Total Bilirubin 3.2 H AST 82 H D ALT 37 Alkaline Phosphatase 98 Ammonia Total Protein 7.7 Albumin 3.3 L Globulin 4.4 H Albumin/Globulin Ratio 0.8 L Urine Color Urine Clarity Urine pH Ur Specific Elsa Urine Protein Urine Glucose (UA) Urine Ketones Urine Blood Urine Nitrate Urine Bilirubin Urine Urobilinogen Ur Leukocyte Esterase Urine WBC (Auto) Urine RBC (Auto) Blood Type Antibody Screen 01/03/18 01/03/18 01/03/18 14:54 14:56 14:56 WBC 10.2 RBC 3.11 L Hgb 7.4 L Hct 24.7 L MCV 79.4 L MCH 23.8 L MCHC 30.0 L RDW 19.5 H Plt Count 52 L MPV 8.6 Neut % (Auto) 76.6 H Lymph % (Auto) 12.9 L Mason % (Auto) 9.0 Eos % (Auto) 0.8 Baso % (Auto) 0.7 Neut # (Auto) 7.8 H Lymph # (Auto) 1.3 Mason # (Auto) 0.9 H Eos # (Auto) 0.1 Baso # (Auto) 0.1 Neutrophils % (Manual) Band Neutrophils % Lymphocytes % (Manual) Monocytes % (Manual) Platelet Estimate Polychromasia Hypochromasia (manual) Poikilocytosis (manual Anisocytosis (manual) Microcytosis (manual) Macrocytosis (manual) Target Cells PT INR Sodium 136 Potassium 3.1 L Chloride 99 Carbon Dioxide 22 Anion Gap 18 BUN 4 L Creatinine 0.7 L Est GFR ( Amer) > 60 Est GFR (Non-Af Amer) > 60 POC Glucose (mg/dL) 159 H Random Glucose 140 H Lactic Acid Calcium 7.7 L Phosphorus 2.2 L Magnesium 1.2 L Total Bilirubin 2.8 H AST 73 H ALT 35 Alkaline Phosphatase 98 Ammonia Total Protein 7.6 Albumin 3.3 L Globulin 4.4 H Albumin/Globulin Ratio 0.7 L Urine Color Urine Clarity Urine pH Ur Specific Elsa Urine Protein Urine Glucose (UA) Urine Ketones Urine Blood Urine Nitrate Urine Bilirubin Urine Urobilinogen Ur Leukocyte Esterase Urine WBC (Auto) Urine RBC (Auto) Blood Type Antibody Screen 01/03/18 01/03/18 14:56 14:56 WBC RBC Hgb Hct MCV MCH MCHC RDW Plt Count MPV Neut % (Auto) Lymph % (Auto) Mason % (Auto) Eos % (Auto) Baso % (Auto) Neut # (Auto) Lymph # (Auto) Mason # (Auto) Eos # (Auto) Baso # (Auto) Neutrophils % (Manual) Band Neutrophils % Lymphocytes % (Manual) Monocytes % (Manual) Platelet Estimate Polychromasia Hypochromasia (manual) Poikilocytosis (manual Anisocytosis (manual) Microcytosis (manual) Macrocytosis (manual) Target Cells PT INR Sodium Potassium Chloride Carbon Dioxide Anion Gap BUN Creatinine Est GFR ( Amer) Est GFR (Non-Af Amer) POC Glucose (mg/dL) Random Glucose Lactic Acid 3.8 H Calcium Phosphorus Magnesium Total Bilirubin AST ALT Alkaline Phosphatase Ammonia 28 Total Protein Albumin Globulin Albumin/Globulin Ratio Urine Color Urine Clarity Urine pH Ur Specific Elsa Urine Protein Urine Glucose (UA) Urine Ketones Urine Blood Urine Nitrate Urine Bilirubin Urine Urobilinogen Ur Leukocyte Esterase Urine WBC (Auto) Urine RBC (Auto) Blood Type Antibody Screen
[2018-01-03] MEDS: Magnesium Sulfate 1 gm in D5W 1 GM/100 ML BAG IVPB SCH ×3 (19:18→19:20)
--- NOTE | 2018-01-04 03:22 | CON ---
DATE: 01/03/2018 CONSULT REQUESTED BY: Dr. Henny Leroy. HISTORY OF PRESENT ILLNESS: This patient is a 42-year-old male. He has history of alcoholism and alcoholic hepatitis. He was brought by his as his abdomen was getting distended and he drinks beer daily. In the emergency room, he denied any abdominal pain. No chest pain. No shortness of breath, and he was admitted with a low hemoglobin and hepatitis and he has been having stool occult positive and he probably has a Deborah-Diggs tear as he has GI bleeding. I came to see the patient today and the nurse said he was fine before and when we saw, he was confused. He did tell me that for a little bit he got very confused and then he drank some krystal caitlyn, he felt better. I checked the vitals, vitals were stable. He was not having any tremors. No fever. At that time, the fever was down. He denied any pain and he appeared withdrawn. He wanted to urinate also, and we gave him a urinal as we were scared about him falling off. Then I came back in a few minutes and at that time, he felt better and he was able to tell his name. He was able to say kind of he lives in [place], so it is pretty weird that he had altered for a few minutes, but he came right back and he denies any abdominal pain. He did get some platelets yesterday and was going to get blood today. When with all these going on, I then came to evaluate and we ordered repeat blood work and chest x-ray and already ordered. Septic workup has been done, and he has been having fevers. The last fever was 101.7 and 101.2 this morning and he was started on Rocephin and Zithromax that he is on at this time and the fever was down when we saw. PAST MEDICAL HISTORY: Significant for anemia, gastritis, positive H. pylori in the past, gastrointestinal ulcer, portal hypertension, and seizures. He does have a history of seizures. He was not seizing when we saw. He never smoked though and no respiratory problems, does have seizure. He has no chronic kidney disease. He has no endocrine problems. He has anemia. He has no fractures. He does have gastritis and he had H. pylori. No urinary symptoms. PAST SURGICAL HISTORY: Endoscopy, he has been here in 07/2017. He had an EGD and biopsy in 2013, and I was not able to get anything out of him since all these confusion was going on, so history is taken from the chart. PHYSICAL EXAMINATION: GENERAL: Otherwise, he is awake and alert now. VITAL SIGNS: T-max is 98.4. pulse is 96, blood pressure 120/80, respirations are 20. HEENT: Head is atraumatic, normocephalic. Pupils are reacting to light. NECK: Supple. JVP is flat. LUNGS: Clear. No crackles or rales present. HEART: S1, S2. Regular. ABDOMEN: Soft and distended. He has ascites, but nontender. EXTREMITIES: No edema, clubbing, or cyanosis. LABORATORY DATA: Labs are noted. Stool occult blood is positive. Urine shows UA is negative. Chemistry, he had a chemistry done in the morning. The potassium was 3.5, now it is 3.1, glucose is 140, his lactic acid is high at 3.8. He will need some fluids. His ammonia level is 28, so that is unremarkable, but INR is 1.7 and hemoglobin is 10.2, hematocrit , platelet count is 224.7. At this time, he needs potassium and he is waiting for peritoneal fluid. He is on Rocephin which covers streptococcus and which is the common cause of spontaneous bacterial peritonitis and we are covering that, so we will continue the medications at this time, and supplement of potassium has been ordered and IV fluids have been ordered. We will follow. Reji Cha MD
[2018-01-04 07:56] LABS: HEMOGLOBIN 7.5 g/dL (12.0-18.0); MEAN CELL VOLUME 79.5 fL (80.0-94.0); MEAN CORPUSCULAR HGB CONC 30.2 g/dL (33.0-37.0); MEAN PLATELET VOLUME 8.8 fL (7.2-11.7); RBC 3.14 Mil/uL (4.40-5.90); RED CELL DISTRIBUTION WIDTH 20.5 % (11.5-14.5); WHITE BLOOD COUNT 6.9 K/uL (4.8-10.8)
[2018-01-04 08:21] LABS: ALB/GLOB RATIO 0.7 (1.0-2.1); ALBUMIN 3.3 g/dL (3.5-5.0); ALT/SGPT 31 U/L (21-72); AST/SGOT 57 U/L (17-59); BLOOD UREA NITROGEN 3 mg/dL (9-20); CALCIUM 8.2 mg/dl (8.6-10.4); GFR AFRICAN-AMERICAN > 60; GFR NON-AFRICAN AMERICAN > 60
--- NOTE | 2018-01-04 08:48 | CP.PCM.PN ---
<Viktoriya Leroy - Last Filed: 01/04/18 09:34> Subjective - Date & Time of Evaluation Date of Evaluation: 01/04/18 Time of Evaluation: 08:15 - Subjective Subjective: PGY4 GI Follow-up Pt seen and examined bedside Denies any abd pain, only distention Tolerating diet Denies N/V/D ROS: 10 point ROS conducted, neg other than above Objective - Vital Signs/Intake and Output Vital Signs (last 24 hours): Temp Pulse Resp BP Pulse Ox 99.6 F 103 H 20 130/82 100 01/04/18 08:35 01/04/18 08:35 01/04/18 08:35 01/04/18 08:35 01/04/18 08:35 Intake and Output: 01/04/18 01/04/18 06:59 18:59 Intake Total 2640 Balance 2640 - Medications Medications: Current Medications Acetaminophen (Tylenol 325mg Tab) 650 mg PO Q12 PRN PRN Reason: Pain, severe (8-10) Last Admin: 01/03/18 05:47 Dose: 650 mg Chlordiazepoxide (Librium) 25 mg PO BID [facility] Last Admin: 01/03/18 17:23 Dose: 25 mg Ferric Sodium Gluconate Complex (Ferrlecit) 125 mg IVPB DAILY [facility] Stop: 01/08/18 10:01 Last Admin: 01/03/18 10:47 Dose: 125 mg Azithromycin 500 mg/ Sodium (Chloride) 250 mls @ 250 mls/hr IVPB QNOON [facility] PRN Reason: Protocol Last Admin: 01/03/18 11:53 Dose: 250 mls/hr Ceftriaxone Sodium 1 gm/ (Sodium Chloride) 100 mls @ 100 mls/hr IVPB DAILY [facility] PRN Reason: Protocol Last Admin: 01/03/18 09:34 Dose: 100 mls/hr Pantoprazole Sodium (Protonix Inj) 40 mg IVP DAILY [facility] Last Admin: 01/03/18 09:34 Dose: 40 mg - Labs Labs: 01/04/18 07:45 01/04/18 07:45 PT 19.8 SECONDS (9.7-12.2) H 01/03/18 09:42 INR 1.7 01/03/18 09:42 APTT 38 SECONDS (21-34) H 01/01/18 20:39 - Constitutional Appears: Well, No Acute Distress - Head Exam Head Exam: ATRAUMATIC, NORMOCEPHALIC - Eye Exam Eye Exam: Normal appearance - ENT Exam ENT Exam: Mucous Membranes Moist, Normal Exam - Neck Exam Neck Exam: Normal Inspection - Respiratory Exam Respiratory Exam: Clear to Ausculation Bilateral, NORMAL BREATHING PATTERN. absent: Rales, Rhonchi, Wheezes, Respiratory Distress - Cardiovascular Exam Cardiovascular Exam: REGULAR RHYTHM, +S1, +S2 - GI/Abdominal Exam GI & Abdominal Exam: Distended, Soft, Normal Bowel Sounds. absent: Guarding, Rigid, Tenderness - Extremities Exam Extremities Exam: absent: Joint Swelling, Pedal Edema - Neurological Exam Neurological Exam: Alert, Awake, Oriented x3 - Psychiatric Exam Psychiatric exam: Normal Affect, Normal Mood - Skin Skin Exam: Dry, Intact, Normal Color, Warm Assessment and Plan - Assessment and Plan (Free Text) Assessment: This is a 42yM presenting with complaints of abdominal distention, recent melena ?. 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 Martel <Danyel Martel - Last Filed: 01/04/18 09:46> Objective - Vital Signs/Intake and Output Vital Signs (last 24 hours): Temp Pulse Resp BP Pulse Ox 99.6 F 103 H 20 130/82 100 01/04/18 08:35 01/04/18 08:35 01/04/18 08:35 01/04/18 08:35 01/04/18 08:35 Intake and Output: 01/04/18 01/04/18 06:59 18:59 Intake Total 2640 Balance 2640 - Medications Medications: Current Medications Acetaminophen (Tylenol 325mg Tab) 650 mg PO Q12 PRN PRN Reason: Pain, severe (8-10) Last Admin: 01/03/18 05:47 Dose: 650 mg Chlordiazepoxide (Librium) 25 mg PO BID [facility] Last Admin: 01/04/18 09:20 Dose: 25 mg Ferric Sodium Gluconate Complex (Ferrlecit) 125 mg IVPB DAILY [facility] Stop: 01/08/18 10:01 Last Admin: 01/04/18 09:20 Dose: 125 mg Azithromycin 500 mg/ Sodium (Chloride) 250 mls @ 250 mls/hr IVPB QNOON [facility] PRN Reason: Protocol Last Admin: 01/03/18 11:53 Dose: 250 mls/hr Ceftriaxone Sodium 1 gm/ (Sodium Chloride) 100 mls @ 100 mls/hr IVPB DAILY [facility] PRN Reason: Protocol Last Admin: 01/04/18 09:00 Dose: 100 mls/hr Lactulose (Enulose) 20 gm PO HS [facility] Pantoprazole Sodium (Protonix Inj) 40 mg IVP DAILY [facility] Last Admin: 01/04/18 09:21 Dose: 40 mg - Labs Labs: 01/04/18 07:45 01/04/18 07:45 PT 19.8 SECONDS (9.7-12.2) H 01/03/18 09:42 INR 1.7 01/03/18 09:42 APTT 38 SECONDS (21-34) H 01/01/18 20:39 Attending/Attestation - Attestation I have personally seen and examined this patient.: Yes I have fully participated in the care of the patient.: Yes I have reviewed all pertinent clinical information, including history, physical exam and plan: Yes Notes (Text): 01/04/18 09:41 I have seen and examined patient with GI fellow. No acute events overnight, he is seen resting in bed comfortably. He denies abdominal pain, nausea, vomiting , or melena. Tolerating PO diet without difficulty. Review of vitals from today show low grade temperature of 99.6, tachycardia. ETOH decompensated cirrhosis Acute ETOH hepatitis Anemia, s/p EGD showing gastritis, duodenitis Increased abdominal girth, new onset ascites Abdominal US reviewed by me showing moderate ascites, no obvious hepatic lesions Fever - Low sodium diet as tolerated - H/H stable, continue to monitor - Patient will require diagnostic/therapeutic paracentesis given new onset ascites, IR consultation requested - Continue with antibiotic therapy, follow up blood cultures and ID recommendations - Begin lactulose for HE prevention - Will begin diuretic therapy following paracentesis - LFTs stable, continue to monitor - Overall senior care prognosis poor, will continue to monitor patient clinical course
[2018-01-04] MEDS: Ferric Sodium Gluconat Complex 62.5 mg/5 ml Vial IVPB SCH (09:20)
[2018-01-04 11:35] VITALS: RESP 20
[2018-01-04] MEDS: Azithromycin 500 MG in Sodium Chloride 0.9% 250 ML IVPB SCH (13:21)
--- NOTE | 2018-01-04 18:34 | CP.PCM.PN ---
Subjective - Date & Time of Evaluation Date of Evaluation: 01/04/18 Time of Evaluation: 11:00 - Subjective Subjective: clinically same Objective - Vital Signs/Intake and Output Vital Signs (last 24 hours): Temp Pulse Resp BP Pulse Ox 99.9 F H 96 H 20 117/83 100 01/04/18 15:15 01/04/18 15:15 01/04/18 15:15 01/04/18 15:15 01/04/18 15:15 Intake and Output: 01/04/18 01/04/18 06:59 18:59 Intake Total 2640 1478 Balance 2640 1478 - Medications Medications: Current Medications Acetaminophen (Tylenol 325mg Tab) 650 mg PO Q12 PRN PRN Reason: Pain, severe (8-10) Last Admin: 01/03/18 05:47 Dose: 650 mg Chlordiazepoxide (Librium) 25 mg PO BID [facility] Last Admin: 01/04/18 17:42 Dose: 25 mg Ferric Sodium Gluconate Complex (Ferrlecit) 125 mg IVPB DAILY [facility] Stop: 01/08/18 10:01 Last Admin: 01/04/18 09:20 Dose: 125 mg Lactulose (Enulose) 20 gm PO HS [facility] Pantoprazole Sodium (Protonix Inj) 40 mg IVP DAILY [facility] Last Admin: 01/04/18 09:21 Dose: 40 mg - Labs Labs: 01/04/18 07:45 01/04/18 07:45 PT 19.8 SECONDS (9.7-12.2) H 01/03/18 09:42 INR 1.7 01/03/18 09:42 APTT 38 SECONDS (21-34) H 01/01/18 20:39 - Constitutional Appears: Well - Head Exam Head Exam: ATRAUMATIC, NORMAL INSPECTION, NORMOCEPHALIC - Eye Exam Eye Exam: EOMI, Normal appearance, PERRL Pupil Exam: NORMAL ACCOMODATION, PERRL - ENT Exam ENT Exam: Mucous Membranes Moist, Normal Exam - Neck Exam Neck Exam: Full ROM, Normal Inspection. absent: Lymphadenopathy - Respiratory Exam Respiratory Exam: Decreased Breath Sounds - Cardiovascular Exam Cardiovascular Exam: REGULAR RHYTHM, +S1, +S2 - GI/Abdominal Exam GI & Abdominal Exam: Soft, Diminished Bowel Sounds - Rectal Exam Rectal Exam: Deferred
[2018-01-05 07:48] LABS: INR 1.5; PROTHROMBIN TIME 17.2 SECONDS (9.7-12.2)
[2018-01-05 07:56] LABS: EOS # 0.1 K/uL (0.0-0.7); EOS % 2.3 % (0.0-4.0)
[2018-01-05 07:58] LABS: ALB/GLOB RATIO 0.8 (1.0-2.1); ALT/SGPT 26 U/L (21-72); AST/SGOT 63 U/L (17-59); BLOOD UREA NITROGEN 4 mg/dL (9-20); CALCIUM 8.9 mg/dl (8.6-10.4); GFR AFRICAN-AMERICAN > 60; GFR NON-AFRICAN AMERICAN > 60
[2018-01-05 08:05] LABS: BASO % 0.6 % (0.0-2.0); LYMPH # 0.3 K/uL (1.0-4.3); LYMPH % 5.2 % (20.0-40.0); MEAN CELL VOLUME 80.7 fL (80.0-94.0); MEAN PLATELET VOLUME 8.6 fL (7.2-11.7); MONO # 0.8 K/uL (0.0-0.8); MONO % 14.5 % (0.0-10.0); NEUT % 77.4 % (50.0-75.0); NRBC % 0.3 % (0.0-2.0); PLATELET COUNT 67 K/uL (130-400); RBC 3.91 Mil/uL (4.40-5.90); RED CELL DISTRIBUTION WIDTH 19.4 % (11.5-14.5); WHITE BLOOD COUNT 5.2 K/uL (4.8-10.8)
[2018-01-05 08:19] LABS: HEMOGLOBIN 9.8 g/dL (12.0-18.0)
--- NOTE | 2018-01-05 08:31 | CP.PCM.PN ---
<Viktoriya Leroy - Last Filed: 01/05/18 09:42> Subjective - Date & Time of Evaluation Date of Evaluation: 01/05/18 Time of Evaluation: 07:00 - Subjective Subjective: PGY4 GI Follow-up Pt seen and examined bedside Denies any abd pain, only distention Tolerating diet Denies N/V/D ROS: 10 point ROS conducted, neg other than above Objective - Vital Signs/Intake and Output Vital Signs (last 24 hours): Temp Pulse Resp BP Pulse Ox 99.1 F 115 H 20 146/94 H 100 01/05/18 08:00 01/05/18 08:00 01/05/18 08:00 01/05/18 08:00 01/05/18 08:00 Intake and Output: 01/05/18 01/05/18 06:59 18:59 Intake Total 240 Balance 240 - Medications Medications: Current Medications Acetaminophen (Tylenol 325mg Tab) 650 mg PO Q12 PRN PRN Reason: Pain, severe (8-10) Last Admin: 01/03/18 05:47 Dose: 650 mg Chlordiazepoxide (Librium) 25 mg PO BID [facility] Last Admin: 01/04/18 17:42 Dose: 25 mg Ferric Sodium Gluconate Complex (Ferrlecit) 125 mg IVPB DAILY [facility] Stop: 01/08/18 10:01 Last Admin: 01/04/18 09:20 Dose: 125 mg Ceftriaxone Sodium (Rocephin Iv 1 Gm Duplex) 50 mls @ 100 mls/hr IVPB DAILY [facility] PRN Reason: Protocol Lactulose (Enulose) 20 gm PO HS [facility] Last Admin: 01/04/18 21:03 Dose: 20 gm Pantoprazole Sodium (Protonix Inj) 40 mg IVP DAILY [facility] Last Admin: 01/04/18 09:21 Dose: 40 mg - Labs Labs: 01/05/18 07:32 01/05/18 07:32 PT 17.2 SECONDS (9.7-12.2) H 01/05/18 07:32 INR 1.5 01/05/18 07:32 APTT 38 SECONDS (21-34) H 01/01/18 20:39 - Constitutional Appears: Well, No Acute Distress - Head Exam Head Exam: ATRAUMATIC, NORMOCEPHALIC - Eye Exam Eye Exam: Normal appearance - ENT Exam ENT Exam: Mucous Membranes Moist, Normal Exam - Neck Exam Neck Exam: Normal Inspection - Respiratory Exam Respiratory Exam: Clear to Ausculation Bilateral, NORMAL BREATHING PATTERN. absent: Rales, Rhonchi, Wheezes, Respiratory Distress - Cardiovascular Exam Cardiovascular Exam: REGULAR RHYTHM, +S1, +S2 - GI/Abdominal Exam GI & Abdominal Exam: Distended, Soft, Normal Bowel Sounds. absent: Firm, Guarding, Rigid, Tenderness, Organomegaly - Extremities Exam Extremities Exam: absent: Joint Swelling, Pedal Edema - Neurological Exam Neurological Exam: Alert, Awake, Oriented x3 - Skin Skin Exam: Dry, Intact, Normal Color, Warm Assessment and Plan - Assessment and Plan (Free Text) Assessment: This is a 42yM presenting with complaints of abdominal distention, recent melena ?. 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 Sawyer <Dennis Sawyer - Last Filed: 01/05/18 09:59> Objective - Vital Signs/Intake and Output Vital Signs (last 24 hours): Temp Pulse Resp BP Pulse Ox 99.1 F 92 H 20 131/71 100 01/05/18 08:00 01/05/18 09:26 01/05/18 09:26 01/05/18 09:26 01/05/18 09:26 Intake and Output: 01/05/18 01/05/18 06:59 18:59 Intake Total 240 Balance 240 - Medications Medications: Current Medications Acetaminophen (Tylenol 325mg Tab) 650 mg PO Q12 PRN PRN Reason: Pain, severe (8-10) Last Admin: 01/03/18 05:47 Dose: 650 mg Chlordiazepoxide (Librium) 25 mg PO BID [facility] Last Admin: 01/05/18 09:28 Dose: 25 mg Ferric Sodium Gluconate Complex (Ferrlecit) 125 mg IVPB DAILY [facility] Stop: 01/08/18 10:01 Last Admin: 01/04/18 09:20 Dose: 125 mg Ceftriaxone Sodium (Rocephin Iv 1 Gm Duplex) 50 mls @ 100 mls/hr IVPB DAILY [facility] PRN Reason: Protocol Last Admin: 01/05/18 09:29 Dose: 100 mls/hr Lactulose (Enulose) 20 gm PO HS [facility] Last Admin: 01/04/18 21:03 Dose: 20 gm Pantoprazole Sodium (Protonix Inj) 40 mg IVP DAILY [facility] Last Admin: 01/05/18 09:29 Dose: 40 mg - Labs Labs: 01/05/18 07:32 01/05/18 07:32 PT 17.2 SECONDS (9.7-12.2) H 01/05/18 07:32 INR 1.5 01/05/18 07:32 APTT 38 SECONDS (21-34) H 01/01/18 20:39 Attending/Attestation - Attestation I have personally seen and examined this patient.: Yes I have fully participated in the care of the patient.: Yes I have reviewed all pertinent clinical information, including history, physical exam and plan: Yes Notes (Text): 01/05/18 09:55 Patient seen with GI fellow on rounds. This is a 41 yr old M with alcohol dependance admitted with decompensated alcoholic liver disease in setting of ascites ? (not impressive on physical exam). He is still actively drinking alcohol. He used to follow with me in the office but stopped with outpatient office visits since he was actively drinking. Last CTAP 12/2016 showed multiple hypodense liver lesions not pharmacy sales representative of hemangioma. Will be prudent to repeat contrast enhanced dedicated Liver imaging to rule out HCC. He has multiple endoscopies last of which on 01/02/2018 showing esophagitis and duodenitis. Previous endoscopies showed gastric ulcer, H pylori negative (2013), healing rosa torrez, G- 1 EV (11/2014). Currently no change in mental status. Continue low dose diuretics, diagnostic paracentesis to rule out SBP, lactulose for prevention of HE. Needs to follow with GI as outpatient. Low sodium diet
[2018-01-05] MEDS: cefTRIAXone IV 1 gm in Dextros 50 ML IVPB SCH (09:29)
[2018-01-05 09:44] LABS: ANISOCYTOSIS SLIGHT; HYPOCHROMIC MODERATE; LYMPHOCYTE 5 % (20-40); MICROCYTOSIS SLIGHT; MONOCYTE 17 % (0-10); NEUTROPHIL 78 % (50-75); PLATELET ESTIMATE DECREASED (NORMAL); POLYCHROMIC SLIGHT; TOTAL CELLS COUNTED 100
[2018-01-05 09:45] LABS: TARGET CELLS SLIGHT
--- NOTE | 2018-01-05 10:23 | CP.PCM.PN ---
Subjective - Date & Time of Evaluation Date of Evaluation: 01/05/18 Time of Evaluation: 10:21 - Subjective Subjective: Medicine progress note for Dr. Leroy's service Patient seen and examined. Patient states he is feeling better today. Patient received 1 unit PRBC yesterday. Patient reports that dyspnea has resolved. Patient denies other complaints. Patient aware he will need follow up with Dr. Sawyer as outpatient. Objective - Vital Signs/Intake and Output Vital Signs (last 24 hours): Temp Pulse Resp BP Pulse Ox 99.1 F 92 H 20 131/71 100 01/05/18 08:00 01/05/18 09:26 01/05/18 09:26 01/05/18 09:26 01/05/18 09:26 Intake and Output: 01/05/18 01/05/18 06:59 18:59 Intake Total 240 Balance 240 - Medications Medications: Current Medications Acetaminophen (Tylenol 325mg Tab) 650 mg PO Q12 PRN PRN Reason: Pain, severe (8-10) Last Admin: 01/03/18 05:47 Dose: 650 mg Chlordiazepoxide (Librium) 25 mg PO BID [facility] Last Admin: 01/05/18 09:28 Dose: 25 mg Ferric Sodium Gluconate Complex (Ferrlecit) 125 mg IVPB DAILY [facility] Stop: 01/08/18 10:01 Last Admin: 01/04/18 09:20 Dose: 125 mg Ceftriaxone Sodium (Rocephin Iv 1 Gm Duplex) 50 mls @ 100 mls/hr IVPB DAILY [facility] PRN Reason: Protocol Last Admin: 01/05/18 09:29 Dose: 100 mls/hr Lactulose (Enulose) 20 gm PO HS [facility] Last Admin: 01/04/18 21:03 Dose: 20 gm Pantoprazole Sodium (Protonix Inj) 40 mg IVP DAILY [facility] Last Admin: 01/05/18 09:29 Dose: 40 mg - Labs Labs: 01/05/18 07:32 01/05/18 07:32 PT 17.2 SECONDS (9.7-12.2) H 01/05/18 07:32 INR 1.5 01/05/18 07:32 APTT 38 SECONDS (21-34) H 01/01/18 20:39 - Constitutional Appears: No Acute Distress - Head Exam Head Exam: ATRAUMATIC, NORMOCEPHALIC - Eye Exam Eye Exam: Scleral icterus - ENT Exam ENT Exam: Mucous Membranes Moist (icteric mucous membranes in mouth) - Respiratory Exam Respiratory Exam: Clear to Ausculation Bilateral, NORMAL BREATHING PATTERN - Cardiovascular Exam Cardiovascular Exam: +S1, +S2 - GI/Abdominal Exam GI & Abdominal Exam: Soft, Normal Bowel Sounds. absent: Distended, Firm, Guarding, Rigid, Tenderness Additional comments: diffuse dullness to percussion, no fluid wave - Extremities Exam Extremities Exam: Normal Inspection. absent: Pedal Edema - Neurological Exam Neurological Exam: Alert, Awake - Skin Skin Exam: Warm Assessment and Plan - Assessment and Plan (Free Text) Assessment: Alcoholic liver cirrhosis paracentesis ordered for IR today, peritoneal fluid analysis ordered per GI clinically, large amount ascites not appreciated on exam abdominal US 01/03 showed moderate abdominal ascites, liver cirrhosis, mild splenomegaly, patent portal vein endoscopy 01/02/2018 showing esophagitis and duodenitis continue lactulose 20mg PO HS to prevent hepatic encephalopathy diuretic therapy to begin after paracentesis continue rocephin 1g daily per ID, Dr. Cha for SBP prophylaxis Tachycardia telemetry reviewed, appears to be sinus tachycardia improved s/p transfusion EKG with NSR in 80s, echo pending Anemia patient s/p 1 unit PRBC on 01/04 hgp improved from 7.5 to 9.8 patient also transfused one unit on 01/01, 01/02 continue ferrlecit will continue to monitor Alcohol abuse alcohol cessation urged patient on librium 25mg PO BID Prophylactic measure protonix 40mg IVP daily medical management as per Dr. Leroy
[2018-01-05] MEDS: Ferric Sodium Gluconat Complex 62.5 mg/5 ml Vial IVPB SCH (10:50)
--- NOTE | 2018-01-05 12:49 | CARD ---
APPROVED REPORT EXAM: Two-dimensional and M-mode echocardiogram with Doppler and color Doppler. Other Information Quality : GoodRhythm : Tachycardia INDICATION Dizziness and Vertigo FEVER, ALCOHOL ABUSE RISK FACTORS Hypertension M-Mode DIMENSIONS RVDd2.03 (2.1-3.2cm)Left Atrium (MM)3.58 (2.5-4.0cm) IVSd0.76 (0.7-1.1cm)Aortic Root2.68 (2.2-3.7cm) LVDd4.57 (4.0-5.6cm)Aortic Cusp Exc.1.83 (1.5-2.0cm) PWd0.70 (0.7-1.1cm)FS (%) 33 % LVDs3.05 (2.0-3.8cm)LVEF (%)62 (>50%) Mitral Valve MV E Lkbmceye401.3cm/sMV A Dfjdvsiy98.8cm/sE/A ratio2.1 TDI E/Lateral E'0.0E/Medial E'0.0 Tricuspid Valve TR Peak [id number]/sTR Peak [id number] LEFT VENTRICLE The left ventricle is normal size. There is normal left ventricular wall thickness. Left ventricle systolic function is normal. The Ejection Fraction is 60-65%. There is normal LV segmental wall motion. The left ventricular diastolic function is normal. There is no ventricular septal defect visualized. RIGHT VENTRICLE The right ventricle is normal size. The right ventricular systolic function is normal. ATRIA The left atrium size is normal. The right atrium size is normal. AORTIC VALVE The aortic valve is tri-cuspid. The aortic valve is normal in structure. No aortic regurgitation is present. There is no aortic valvular stenosis. MITRAL VALVE The mitral valve is normal in structure. There is no evidence of mitral valve prolapse. There is no mitral valve stenosis. There is no mitral valve regurgitation noted. TRICUSPID VALVE The tricuspid valve is normal in structure. There is trace tricuspid regurgitation. There is no pulmonary hypertension. PULMONIC VALVE The pulmonic valve is not well visualized. There is no pulmonic valvular regurgitation. GREAT VESSELS The aortic root is normal in size. The IVC is normal in size and collapses >50% with inspiration. PERICARDIAL EFFUSION There is a trace posterior pericardial effusion. <Conclusion> Left ventricle systolic function is normal. The Ejection Fraction is 60-65%. The left ventricular diastolic function is normal. There is a trace posterior pericardial effusion.
--- NOTE | 2018-01-05 14:27 | CP.PCM.PN ---
Subjective - Date & Time of Evaluation Date of Evaluation: 01/05/18 Time of Evaluation: 11:20 - Subjective Subjective: clinically same Objective - Vital Signs/Intake and Output Vital Signs (last 24 hours): Temp Pulse Resp BP Pulse Ox 99.1 F 99 H 20 131/71 100 01/05/18 08:00 01/05/18 12:55 01/05/18 09:26 01/05/18 09:26 01/05/18 09:26 Intake and Output: 01/05/18 01/05/18 06:59 18:59 Intake Total 240 Balance 240 - Medications Medications: Current Medications Acetaminophen (Tylenol 325mg Tab) 650 mg PO Q12 PRN PRN Reason: Pain, severe (8-10) Last Admin: 01/03/18 05:47 Dose: 650 mg Chlordiazepoxide (Librium) 25 mg PO BID [facility] Last Admin: 01/05/18 09:28 Dose: 25 mg Ferric Sodium Gluconate Complex (Ferrlecit) 125 mg IVPB DAILY [facility] Stop: 01/08/18 10:01 Last Admin: 01/05/18 10:50 Dose: 125 mg Ceftriaxone Sodium (Rocephin Iv 1 Gm Duplex) 50 mls @ 100 mls/hr IVPB DAILY [facility] PRN Reason: Protocol Last Admin: 01/05/18 09:29 Dose: 100 mls/hr Lactulose (Enulose) 20 gm PO HS [facility] Last Admin: 01/04/18 21:03 Dose: 20 gm Pantoprazole Sodium (Protonix Inj) 40 mg IVP DAILY [facility] Last Admin: 01/05/18 09:29 Dose: 40 mg - Labs Labs: 01/05/18 07:32 01/05/18 07:32 PT 17.2 SECONDS (9.7-12.2) H 01/05/18 07:32 INR 1.5 01/05/18 07:32 APTT 38 SECONDS (21-34) H 01/01/18 20:39 - Constitutional Appears: Well - Head Exam Head Exam: ATRAUMATIC, NORMAL INSPECTION, NORMOCEPHALIC - Eye Exam Eye Exam: EOMI, Normal appearance, PERRL Pupil Exam: NORMAL ACCOMODATION, PERRL - ENT Exam ENT Exam: Mucous Membranes Moist, Normal Exam - Neck Exam Neck Exam: Full ROM, Normal Inspection. absent: Lymphadenopathy - Respiratory Exam Respiratory Exam: Decreased Breath Sounds - Cardiovascular Exam Cardiovascular Exam: REGULAR RHYTHM, +S1, +S2 - GI/Abdominal Exam GI & Abdominal Exam: Soft, Diminished Bowel Sounds - Rectal Exam Rectal Exam: Deferred
--- NOTE | 2018-01-05 22:00 | PCM.PSYCH ---
Initial Psychiatric Evaluation - Initial Psychiatric Evaluation Type of Admission: Voluntary Legal Status: Capacity Current Medications: Active Medications Generic Name Dose Route Start Last Admin Trade Name Madelyn PRN Reason Stop Dose Admin Acetaminophen 650 mg 01/02/18 15:49 01/03/18 05:47 Tylenol 325mg Tab PO 650 mg Q12 PRN Administration Pain, severe (8-10) Chlordiazepoxide 25 mg 01/03/18 18:00 01/05/18 17:19 Librium PO 25 mg BID [facility] Administration Chlordiazepoxide 25 mg 01/05/18 20:14 Librium PO Q8 PRN alcohol withdrawal Ferric Sodium Gluconate Complex 125 mg 01/03/18 10:00 01/05/18 10:50 Ferrlecit IVPB 01/08/18 10:01 125 mg DAILY SY[facility]IA Administration Ceftriaxone Sodium 50 mls @ 100 mls/hr 01/05/18 10:00 01/05/18 09:29 Rocephin Iv 1 Gm Duplex IVPB 100 mls/hr DAILY [facility] Administration Protocol Lactulose 20 gm 01/04/18 22:00 01/04/18 21:03 Enulose PO 20 gm HS SY[facility]IA Administration Pantoprazole Sodium 40 mg 01/02/18 10:00 01/05/18 09:29 Protonix Inj IVP 40 mg DAILY [facility] Administration Past Psychiatric History - Past Psychiatric History Pertinent Medical Hx (Current Medical&Sleep Prob, Allergies): Allergies Allergy/AdvReac Type Severity Reaction Status Date / Time No Known Allergies Allergy Verified 07/16/17 09:42 Folic Acid 1 mg PO DAILY 04/25/17 Hydroxyzine Pamoate [Vistaril] 25 mg PO DAILY 04/25/17 Pantoprazole Sodium [Protonix] 40 mg PO DAILY 04/25/17 Propranolol [Inderal] 10 mg PO BID 04/25/17 Multivitamin [Multivitamins] 1 each PO DAILY #30 capsule 04/30/17 Thiamine [Vitamin B1 Tab] 100 mg PO DAILY #30 tab 04/30/17 Ranitidine HCl [Ranitidine 150] 150 mg PO BID 06/08/17 Ferrous Sulfate [Feosol] 325 mg PO DAILY 07/16/17 Propranolol [Inderal] 5 mg PO BID #60 tab 07/18/17
--- NOTE | 2018-01-05 22:17 | CP.PCM.PN ---
Subjective - Date & Time of Evaluation Date of Evaluation: 01/05/18 Time of Evaluation: 03:00 - Subjective Subjective: dictated Objective - Vital Signs/Intake and Output Vital Signs (last 24 hours): Temp Pulse Resp BP Pulse Ox 98 F 81 20 114/75 100 01/05/18 18:34 01/05/18 18:34 01/05/18 18:34 01/05/18 18:34 01/05/18 15:29 Intake and Output: 01/05/18 01/06/18 18:59 06:59 Intake Total 550 Balance 550 - Medications Medications: Current Medications Acetaminophen (Tylenol 325mg Tab) 650 mg PO Q12 PRN PRN Reason: Pain, severe (8-10) Last Admin: 01/03/18 05:47 Dose: 650 mg Chlordiazepoxide (Librium) 25 mg PO BID [facility] Last Admin: 01/05/18 17:19 Dose: 25 mg Chlordiazepoxide (Librium) 25 mg PO Q8 PRN PRN Reason: alcohol withdrawal Ferric Sodium Gluconate Complex (Ferrlecit) 125 mg IVPB DAILY [facility] Stop: 01/08/18 10:01 Last Admin: 01/05/18 10:50 Dose: 125 mg Ceftriaxone Sodium (Rocephin Iv 1 Gm Duplex) 50 mls @ 100 mls/hr IVPB DAILY [facility] PRN Reason: Protocol Last Admin: 01/05/18 09:29 Dose: 100 mls/hr Lactulose (Enulose) 20 gm PO HS [facility] Last Admin: 01/04/18 21:03 Dose: 20 gm Pantoprazole Sodium (Protonix Inj) 40 mg IVP DAILY [facility] Last Admin: 01/05/18 09:29 Dose: 40 mg - Labs Labs: 01/05/18 07:32 01/05/18 07:32 PT 17.2 SECONDS (9.7-12.2) H 01/05/18 07:32 INR 1.5 01/05/18 07:32 APTT 38 SECONDS (21-34) H 01/01/18 20:39
--- NOTE | 2018-01-06 02:53 | PN ---
DATE: SUBJECTIVE: The patient was more awake, alert. He was offering no new complaints. He has no abdominal pain. PHYSICAL EXAMINATION VITAL SIGNS: T-max is 98, pulse 81, blood pressure 114/75, respirations are 20. HEENT: Head is atraumatic, normocephalic. NECK: Supple. LUNGS: Clear. HEART: S1 and S2 is regular. ABDOMEN: Soft, nontender. No guarding, no rigidity present. EXTREMITIES: Had no edema. LABORATORY DATA: Noted. Labs showed white count is 5.2, hemoglobin 9.8, hematocrit 31.5, platelet count of 67, segs are 78, lymphs are 5. He came in with a GI bleed and is being followed by GI and his procalcitonin level was high. Hence, I left him on antibiotics. I doubt he has SBP. He did get platelets and after that, he started to have fevers. I am not sure if it is a reaction to it. We will repeat the procalcitonin level tomorrow, and if it is stable, switch him to oral antibiotics, unless there is a different plan from the GI. We will follow. Reji Cha MD
[2018-01-06 08:01] LABS: HEMOGLOBIN 8.9 g/dL (12.0-18.0); MEAN CELL VOLUME 80.7 fL (80.0-94.0); MEAN CORPUSCULAR HEMOGLOBIN 25.7 pg (27.0-31.0); MEAN CORPUSCULAR HGB CONC 31.9 g/dL (33.0-37.0); MEAN PLATELET VOLUME 8.7 fL (7.2-11.7); RBC 3.47 Mil/uL (4.40-5.90); WHITE BLOOD COUNT 3.4 K/uL (4.8-10.8)
[2018-01-06 08:31] LABS: ALB/GLOB RATIO 0.8 (1.0-2.1); ALBUMIN 3.5 g/dL (3.5-5.0); ALT/SGPT 27 U/L (21-72); AST/SGOT 65 U/L (17-59); BLOOD UREA NITROGEN 6 mg/dL (9-20); CALCIUM 8.9 mg/dl (8.6-10.4); GFR AFRICAN-AMERICAN > 60; GFR NON-AFRICAN AMERICAN > 60
[2018-01-06] MEDS: Ferric Sodium Gluconat Complex 62.5 mg/5 ml Vial IVPB SCH (09:00)
--- NOTE | 2018-01-06 09:33 | CP.PCM.PN ---
Subjective - Date & Time of Evaluation Date of Evaluation: 01/06/18 Time of Evaluation: 09:24 - Subjective Subjective: Patient seen and examined, resting in bed comfortably. No acute events overnight. He denies abdominal pain, nausea, vomiting, fever/chills. Tolerating PO diet without difficulty. He had two bowel movements over the past 24 hours. Review of vitals from this morning are normal. 12 point review of systems performed, negative aside from mentioned above. Objective - Vital Signs/Intake and Output Vital Signs (last 24 hours): Temp Pulse Resp BP Pulse Ox 98.7 F 76 20 126/83 100 01/06/18 07:30 01/06/18 07:30 01/06/18 07:30 01/06/18 07:30 01/06/18 07:30 Intake and Output: 01/06/18 01/06/18 06:59 18:59 Intake Total 450 Balance 450 - Medications Medications: Current Medications Acetaminophen (Tylenol 325mg Tab) 650 mg PO Q12 PRN PRN Reason: Pain, severe (8-10) Last Admin: 01/03/18 05:47 Dose: 650 mg Chlordiazepoxide (Librium) 25 mg PO BID [facility] Last Admin: 01/06/18 09:00 Dose: 25 mg Chlordiazepoxide (Librium) 25 mg PO Q8 PRN PRN Reason: alcohol withdrawal Last Admin: 01/06/18 00:47 Dose: 25 mg Ferric Sodium Gluconate Complex (Ferrlecit) 125 mg IVPB DAILY [facility] Stop: 01/08/18 10:01 Last Admin: 01/06/18 09:00 Dose: 125 mg Ceftriaxone Sodium (Rocephin Iv 1 Gm Duplex) 50 mls @ 100 mls/hr IVPB DAILY [facility] PRN Reason: Protocol Last Admin: 01/05/18 09:29 Dose: 100 mls/hr Lactulose (Enulose) 20 gm PO HS [facility] Last Admin: 01/05/18 22:21 Dose: 20 gm Pantoprazole Sodium (Protonix Inj) 40 mg IVP DAILY [facility] Last Admin: 01/06/18 09:00 Dose: 40 mg - Labs Labs: 01/06/18 07:41 01/06/18 07:41 PT 17.2 SECONDS (9.7-12.2) H 01/05/18 07:32 INR 1.5 01/05/18 07:32 APTT 38 SECONDS (21-34) H 01/01/18 20:39 - Constitutional Appears: Non-toxic, No Acute Distress - Head Exam Head Exam: NORMAL INSPECTION - Eye Exam Eye Exam: EOMI, Normal appearance - ENT Exam ENT Exam: Mucous Membranes Moist - Respiratory Exam Respiratory Exam: Clear to Ausculation Bilateral - Cardiovascular Exam Cardiovascular Exam: REGULAR RHYTHM, +S1, +S2 - GI/Abdominal Exam GI & Abdominal Exam: Soft, Normal Bowel Sounds Additional comments: non tender to palpation in four quadrants - Extremities Exam Extremities Exam: Normal Inspection - Skin Skin Exam: Dry, Intact, Normal Color, Warm Assessment and Plan - Assessment and Plan (Free Text) Assessment: ETOH decompensated cirrhosis AMS - hepatic encephalopathy Fever Chronic anemia Plan: - Low sodium diet as tolerated - Paracentesis not able to be performed due to paucity of ascitic fluid - Initiate low dose diuretic therapy and continue to monitor electrolytes - Continue with antibiotic therapy as per ID - LFTs stable, continue to monitor - H/H stable, continue to monitor - Continue with lactulose therapy for HE prevention - ETOH cessation counseling - No further planned GI interventions, will sign off case. Please reconsult as necessary, thank you.
--- NOTE | 2018-01-06 10:11 | CP.PCM.PN ---
Subjective - Date & Time of Evaluation Date of Evaluation: 01/06/18 Time of Evaluation: 10:10 - Subjective Subjective: Progress note for Dr. Leroy's Service Pt seen and examined at bedside. He is actively receiving pRBC. He appears weak/ lethargic. States that he did not sleep well last night. He denies N/V/ hematemesis, diarrhea, hematochezia. Objective - Vital Signs/Intake and Output Vital Signs (last 24 hours): Temp Pulse Resp BP Pulse Ox 98.7 F 76 20 126/83 100 01/06/18 07:30 01/06/18 07:30 01/06/18 07:30 01/06/18 07:30 01/06/18 07:30 Intake and Output: 01/06/18 01/06/18 06:59 18:59 Intake Total 450 Balance 450 - Medications Medications: Current Medications Acetaminophen (Tylenol 325mg Tab) 650 mg PO Q12 PRN PRN Reason: Pain, severe (8-10) Last Admin: 01/03/18 05:47 Dose: 650 mg Chlordiazepoxide (Librium) 25 mg PO BID [facility] Last Admin: 01/06/18 09:00 Dose: 25 mg Chlordiazepoxide (Librium) 25 mg PO Q8 PRN PRN Reason: alcohol withdrawal Last Admin: 01/06/18 00:47 Dose: 25 mg Ferric Sodium Gluconate Complex (Ferrlecit) 125 mg IVPB DAILY [facility] Stop: 01/08/18 10:01 Last Admin: 01/06/18 09:00 Dose: 125 mg Ceftriaxone Sodium (Rocephin Iv 1 Gm Duplex) 50 mls @ 100 mls/hr IVPB DAILY [facility] PRN Reason: Protocol Last Admin: 01/05/18 09:29 Dose: 100 mls/hr Lactulose (Enulose) 20 gm PO HS [facility] Last Admin: 01/05/18 22:21 Dose: 20 gm Pantoprazole Sodium (Protonix Inj) 40 mg IVP DAILY [facility] Last Admin: 01/06/18 09:00 Dose: 40 mg - Labs Labs: 01/06/18 07:41 01/06/18 07:41 PT 17.2 SECONDS (9.7-12.2) H 01/05/18 07:32 INR 1.5 01/05/18 07:32 APTT 38 SECONDS (21-34) H 01/01/18 20:39 - Constitutional Appears: No Acute Distress, Other (lethargic) - Head Exam Head Exam: ATRAUMATIC - Eye Exam Eye Exam: EOMI, Scleral icterus - ENT Exam ENT Exam: Mucous Membranes Moist - Respiratory Exam Respiratory Exam: Clear to Ausculation Bilateral, NORMAL BREATHING PATTERN - Cardiovascular Exam Cardiovascular Exam: REGULAR RHYTHM, +S1, +S2 - GI/Abdominal Exam GI & Abdominal Exam: Soft. absent: Tenderness - Neurological Exam Neurological Exam: Alert, Awake - Skin Skin Exam: Dry, Warm Assessment and Plan - Assessment and Plan (Free Text) Plan: Alcoholic liver cirrhosis Consult placed to GI, Dr. Martel, Recs appreciated - Low sodium diet as tolerated - Paracentesis not able to be performed due to paucity of ascitic fluid - Initiate low dose diuretic therapy and continue to monitor electrolytes - Continue with antibiotic therapy as per ID - LFTs stable, continue to monitor - H/H stable, continue to monitor - Continue with lactulose therapy for HE prevention - ETOH cessation counseling - No further planned GI interventions, will sign off case. Please reconsult as necessary, thank you. Consult Placed to ID- Dr. Cha- follow up recs rocephin 1g daily as per ID, Dr. Cha for SBP prophylaxis Consult placed to psych- Dr. Quesada- follow up recs librium 25mg PO BID lactulose 20mg PO HS to prevent hepatic encephalopathy Stool occult blood + Blood cx NGTD Urine cx NGTD abdominal US 01/03 showed moderate abdominal ascites, liver cirrhosis, mild splenomegaly, patent portal vein endoscopy 01/02/2018 showing esophagitis and duodenitis paracentesis ordered for IR but unable to be performed, as mentioned above Lasix 10mg IVP x1 Tachycardia telemetry reviewed, appears to be sinus tachycardia improved s/p transfusion EKG with NSR in 80s echo normal with EF 60-65% Anemia patient s/p 1 unit PRBC on 01/04 hgp improved from 7.5 to 9.8, now down to 8.9 01/06 patient also transfused one unit on 01/01, 01/02 continue ferrlecit Serum Iron 18 TIBC 365 Serum B12 900 will continue to monitor Alcohol abuse alcohol cessation urged Consult placed to psych- Dr. Quesada- follow up recs librium 25mg PO BID Prophylactic measure protonix 40mg IVP daily Case discussed with Dr. Leroy All medical management as per Dr. Leroy
[2018-01-06] MEDS: cefTRIAXone IV 1 gm in Dextros 50 ML IVPB SCH (10:33)
--- NOTE | 2018-01-06 12:53 | CARD ---
APPROVED REPORT EKG Measurement Heart [id number] <Conclusion> Sinus rhythm with short NV Nonspecific T wave abnormality Abnormal ECG
[2018-01-06] MEDS ORDERED: Magnesium Sulfate 1 gm in D5W 1 GM/100 ML BAG IVPB ONE (15:50)
--- NOTE | 2018-01-06 16:08 | CP.PCM.PN ---
Subjective - Date & Time of Evaluation Date of Evaluation: 01/06/18 Time of Evaluation: 12:00 - Subjective Subjective: clinically same Objective - Vital Signs/Intake and Output Vital Signs (last 24 hours): Temp Pulse Resp BP Pulse Ox 98.7 F 76 20 126/83 100 01/06/18 07:30 01/06/18 07:30 01/06/18 07:30 01/06/18 07:30 01/06/18 07:30 Intake and Output: 01/06/18 01/06/18 06:59 18:59 Intake Total 450 600 Balance 450 600 - Medications Medications: Current Medications Acetaminophen (Tylenol 325mg Tab) 650 mg PO Q12 PRN PRN Reason: Pain, severe (8-10) Last Admin: 01/03/18 05:47 Dose: 650 mg Chlordiazepoxide (Librium) 25 mg PO BID [facility] Last Admin: 01/06/18 09:00 Dose: 25 mg Chlordiazepoxide (Librium) 25 mg PO Q8 PRN PRN Reason: alcohol withdrawal Last Admin: 01/06/18 00:47 Dose: 25 mg Ferric Sodium Gluconate Complex (Ferrlecit) 125 mg IVPB DAILY [facility] Stop: 01/08/18 10:01 Last Admin: 01/06/18 09:00 Dose: 125 mg Ceftriaxone Sodium (Rocephin Iv 1 Gm Duplex) 50 mls @ 100 mls/hr IVPB DAILY [facility] PRN Reason: Protocol Last Admin: 01/06/18 10:33 Dose: 100 mls/hr Magnesium Sulfate/Dextrose (Magnesium Sulfate 1 Gm/100 Ml D5w) 1 gm in 100 mls @ 200 mls/hr IVPB ONCE ONE Stop: 01/06/18 16:19 Lactulose (Enulose) 20 gm PO HS [facility] Last Admin: 01/05/18 22:21 Dose: 20 gm Pantoprazole Sodium (Protonix Inj) 40 mg IVP DAILY [facility] Last Admin: 01/06/18 09:00 Dose: 40 mg - Labs Labs: 01/06/18 07:41 01/06/18 07:41 PT 17.2 SECONDS (9.7-12.2) H 01/05/18 07:32 INR 1.5 01/05/18 07:32 APTT 38 SECONDS (21-34) H 01/01/18 20:39 - Constitutional Appears: Well - Head Exam Head Exam: ATRAUMATIC, NORMAL INSPECTION, NORMOCEPHALIC - Eye Exam Eye Exam: EOMI, Normal appearance, PERRL Pupil Exam: NORMAL ACCOMODATION, PERRL - ENT Exam ENT Exam: Mucous Membranes Moist, Normal Exam - Neck Exam Neck Exam: Full ROM, Normal Inspection. absent: Lymphadenopathy - Respiratory Exam Respiratory Exam: Decreased Breath Sounds - Cardiovascular Exam Cardiovascular Exam: REGULAR RHYTHM, +S1, +S2 - GI/Abdominal Exam GI & Abdominal Exam: Soft, Diminished Bowel Sounds - Rectal Exam Rectal Exam: Deferred
--- NOTE | 2018-01-07 04:19 | PN ---
DATE: 01/06/2018 SUBJECTIVE: Today when I went, he was all dressed up, and he denied any pain. He was feeling better. He denied abdominal pain, he did not have any ascites to his left. He denied abdominal pain. No nausea, no vomiting. He did have a high procalcitonin on the day before so we repeated it today, it was normal. PHYSICAL EXAMINATION: VITAL SIGNS: T-max was 98.1, pulse 82, blood pressure 117/73, respirations are 20. HEENT: Head is atraumatic. GENERAL: He is more alert, oriented. NECK: Supple. LUNGS: Clear. HEART: S1, S2 is regular. ABDOMEN: Soft, nontender. No guarding. No rigidity present. EXTREMITIES: No edema. LABORATORY DATA: White count was 3.4, hemoglobin 8.9, hematocrit 28.0, platelet count of 65. His hemoglobin was 9.8, it dropped to 8.9 and GI is monitoring that, and his calcitonin level decreased to 0.47. He has been on Rocephin for last 4 days they have given him, so at this time, they still give him for 5 more days, Vantin 200 b.i.d. Etiology of this increase of procalcitonin is unknown. He did not have SBP, it could be related to minimal aspiration but chest x-ray was negative. Blood and urine cultures have been all negative. Since procalcitonin was high, we will give him oral antibiotics at this time. Reji Cha MD
[2018-01-07 07:05] LABS: HEMOGLOBIN 9.1 g/dL (12.0-18.0); MEAN CELL VOLUME 81.2 fL (80.0-94.0); MEAN CORPUSCULAR HEMOGLOBIN 25.6 pg (27.0-31.0); MEAN CORPUSCULAR HGB CONC 31.6 g/dL (33.0-37.0); MEAN PLATELET VOLUME 8.4 fL (7.2-11.7); PLATELET COUNT 70 K/uL (130-400); RBC 3.54 Mil/uL (4.40-5.90); RED CELL DISTRIBUTION WIDTH 20.7 % (11.5-14.5); WHITE BLOOD COUNT 4.1 K/uL (4.8-10.8)
[2018-01-07 08:34] VITALS: O2SAT 100
[2018-01-07 08:48] LABS: BASO # 0.1 K/uL (0.0-0.2); LYMPH # 0.3 K/uL (1.0-4.3); MONO # 0.7 K/uL (0.0-0.8)
[2018-01-07 08:49] LABS: BANDS 2 % (0-2); BASOPHIL 2 % (0-2); EOSINOPHIL 1 % (0-4); LYMPHOCYTE 9 % (20-40); MONOCYTE 15 % (0-10); NEUTROPHIL 71 % (50-75); TOTAL CELLS COUNTED 100
[2018-01-07 08:51] LABS: ANISOCYTOSIS SLIGHT; HYPOCHROMIC SLIGHT; PLATELET ESTIMATE DECREASED (NORMAL); POIKILOCYTOSIS SLIGHT
[2018-01-07 08:51] LABS: ALB/GLOB RATIO 0.8 (1.0-2.1); ALBUMIN 3.4 g/dL (3.5-5.0); ALT/SGPT 31 U/L (21-72); AST/SGOT 89 U/L (17-59); BLOOD UREA NITROGEN 8 mg/dL (9-20); CALCIUM 8.5 mg/dl (8.6-10.4); GFR AFRICAN-AMERICAN > 60; GFR NON-AFRICAN AMERICAN > 60
[2018-01-07 08:52] LABS: BURR CELLS SLIGHT; MICROCYTOSIS SLIGHT; POLYCHROMIC SLIGHT; TARGET CELLS SLIGHT; TEARDROP CELLS SLIGHT
[2018-01-07 08:53] LABS: OVALOCYTES SLIGHT
[2018-01-07] MEDS: Ferric Sodium Gluconat Complex 62.5 mg/5 ml Vial IVPB SCH (09:07)
--- NOTE | 2018-01-07 10:25 | CP.PCM.PN ---
Subjective - Date & Time of Evaluation Date of Evaluation: 01/07/18 Time of Evaluation: 10:16 - Subjective Subjective: Progress note for Dr. Leroy's Service Pt seen and examined at bedside. He appears more alert today. is at bedside this morning and explains that he drinks several beers each day. No acute events overnight. Patient states that he would like to return home and that he has quit drinking alcohol. Objective - Vital Signs/Intake and Output Vital Signs (last 24 hours): Temp Pulse Resp BP Pulse Ox 98.2 F 77 20 118/78 100 01/07/18 08:33 01/07/18 08:33 01/07/18 08:33 01/07/18 08:33 01/07/18 08:33 - Medications Medications: Current Medications Acetaminophen (Tylenol 325mg Tab) 650 mg PO Q12 PRN PRN Reason: Pain, severe (8-10) Last Admin: 01/03/18 05:47 Dose: 650 mg Chlordiazepoxide (Librium) 25 mg PO BID [facility] Last Admin: 01/07/18 09:07 Dose: 25 mg Chlordiazepoxide (Librium) 25 mg PO Q8 PRN PRN Reason: alcohol withdrawal Last Admin: 01/07/18 04:19 Dose: 25 mg Ferric Sodium Gluconate Complex (Ferrlecit) 125 mg IVPB DAILY [facility] Stop: 01/08/18 10:01 Last Admin: 01/07/18 09:07 Dose: 125 mg Ceftriaxone Sodium (Rocephin Iv 1 Gm Duplex) 50 mls @ 100 mls/hr IVPB DAILY [facility] PRN Reason: Protocol Last Admin: 01/06/18 10:33 Dose: 100 mls/hr Lactulose (Enulose) 20 gm PO HS [facility] Last Admin: 01/06/18 21:14 Dose: 20 gm Pantoprazole Sodium (Protonix Inj) 40 mg IVP DAILY [facility] Last Admin: 01/07/18 09:07 Dose: 40 mg - Labs Labs: 01/07/18 06:53 01/07/18 06:54 PT 17.2 SECONDS (9.7-12.2) H 01/05/18 07:32 INR 1.5 01/05/18 07:32 APTT 38 SECONDS (21-34) H 01/01/18 20:39 - Constitutional Appears: No Acute Distress - Head Exam Head Exam: ATRAUMATIC, NORMOCEPHALIC - Eye Exam Eye Exam: EOMI - ENT Exam ENT Exam: Mucous Membranes Moist - Respiratory Exam Respiratory Exam: Clear to Ausculation Bilateral, NORMAL BREATHING PATTERN - Cardiovascular Exam Cardiovascular Exam: REGULAR RHYTHM, +S1, +S2 - GI/Abdominal Exam GI & Abdominal Exam: Soft. absent: Distended, Tenderness - Neurological Exam Neurological Exam: Alert, Awake, Oriented x3 - Psychiatric Exam Psychiatric exam: Normal Affect, Normal Mood - Skin Skin Exam: Dry, Warm Assessment and Plan - Assessment and Plan (Free Text) Plan: Alcoholic liver cirrhosis Consult placed to GI, Dr. Martel, Recs appreciated - Low sodium diet as tolerated - Paracentesis not able to be performed due to paucity of ascitic fluid - Initiate low dose diuretic therapy and continue to monitor electrolytes - Continue with antibiotic therapy as per ID - LFTs stable, continue to monitor - H/H stable, continue to monitor - Continue with lactulose therapy for HE prevention - ETOH cessation counseling - No further planned GI interventions, will sign off case. Please reconsult as necessary, thank you. Consult Placed to ID- Dr. Cha- follow up recs rocephin 1g daily as per ID, Dr. Cha for SBP prophylaxis Consult placed to psych- Dr. Quesada- follow up recs librium 25mg PO BID lactulose 20mg PO HS to prevent hepatic encephalopathy Stool occult blood + Blood cx NGTD Urine cx NGTD Follow up Pro-tracy negative abdominal US 01/03 showed moderate abdominal ascites, liver cirrhosis, mild splenomegaly, patent portal vein endoscopy 01/02/2018 showing esophagitis and duodenitis paracentesis ordered for IR but unable to be performed, as mentioned above Lasix 10mg IVP x1- improved abdominal distention Tachycardia telemetry reviewed, appears to be sinus tachycardia improved s/p transfusion EKG with NSR in 80s echo normal with EF 60-65% Anemia patient s/p 1 unit PRBC on 01/04 hgp improved from 7.5 to 9.8, now down to 8.9 01/06 patient also transfused one unit on 01/01, 01/02 continue ferrlecit Serum Iron 18 TIBC 365 Serum B12 900 will continue to monitor Alcohol abuse alcohol cessation urged Consult placed to psych- Dr. Quesada- follow up recs librium 25mg PO BID lactulose 20mg PO HS to prevent hepatic encephalopathy Pancytopenia likely secondary to ETOh abuse c/w Ferrlecit 125mg IV daily Monitor Prophylactic measure protonix 40mg IVP daily Case discussed with Dr. Leroy All medical management as per Dr. Leroy
[2018-01-07] MEDS: cefTRIAXone IV 1 gm in Dextros 50 ML IVPB SCH (10:31)
--- NOTE | 2018-01-07 19:01 | CP.PCM.PN ---
Subjective - Date & Time of Evaluation Date of Evaluation: 01/07/18 Time of Evaluation: 10:20 - Subjective Subjective: clinically same Objective - Vital Signs/Intake and Output Vital Signs (last 24 hours): Temp Pulse Resp BP Pulse Ox 98.1 F 80 20 97/61 L 100 01/07/18 15:15 01/07/18 15:15 01/07/18 15:15 01/07/18 15:15 01/07/18 15:15 Intake and Output: 01/07/18 01/08/18 18:59 06:59 Intake Total 600 Balance 600 - Medications Medications: Current Medications Acetaminophen (Tylenol 325mg Tab) 650 mg PO Q12 PRN PRN Reason: Pain, severe (8-10) Last Admin: 01/03/18 05:47 Dose: 650 mg Cefpodoxime Proxetil (Vantin) 200 mg PO Q12 [facility] Chlordiazepoxide (Librium) 25 mg PO BID [facility] Last Admin: 01/07/18 17:22 Dose: 25 mg Chlordiazepoxide (Librium) 25 mg PO Q8 PRN PRN Reason: alcohol withdrawal Last Admin: 01/07/18 04:19 Dose: 25 mg Ferric Sodium Gluconate Complex (Ferrlecit) 125 mg IVPB DAILY [facility] Stop: 01/08/18 10:01 Last Admin: 01/07/18 09:07 Dose: 125 mg Lactulose (Enulose) 20 gm PO HS [facility] Last Admin: 01/06/18 21:14 Dose: 20 gm Pantoprazole Sodium (Protonix Ec Tab) 40 mg PO DAILY [facility] - Labs Labs: 01/07/18 06:53 01/07/18 06:54 PT 17.2 SECONDS (9.7-12.2) H 01/05/18 07:32 INR 1.5 01/05/18 07:32 APTT 38 SECONDS (21-34) H 01/01/18 20:39 - Constitutional Appears: Well - Head Exam Head Exam: ATRAUMATIC, NORMAL INSPECTION, NORMOCEPHALIC - Eye Exam Eye Exam: EOMI, Normal appearance, PERRL Pupil Exam: NORMAL ACCOMODATION, PERRL - ENT Exam ENT Exam: Mucous Membranes Moist, Normal Exam - Neck Exam Neck Exam: Full ROM, Normal Inspection. absent: Lymphadenopathy - Respiratory Exam Respiratory Exam: Decreased Breath Sounds - Cardiovascular Exam Cardiovascular Exam: REGULAR RHYTHM, +S1 - GI/Abdominal Exam GI & Abdominal Exam: Soft, Diminished Bowel Sounds - Rectal Exam Rectal Exam: Deferred
[2018-01-07] MEDS: Cefpodoxime (Vantin) 200 mg Tab PO SCH (21:36)
--- NOTE | 2018-01-07 23:28 | CARD ---
APPROVED REPORT EKG Measurement Heart [id number] <Conclusion> Normal sinus rhythm Normal ECG
--- NOTE | 2018-01-08 02:34 | PN ---
DATE: 01/07/2018 INFECTIOUS DISEASE FOLLOWUP NOTE SUBJECTIVE: The patient was awake, alert. He said he is feeling better. He denied any abdominal pain. No nausea. No vomiting. He did receive Rocephin which was finishing. PHYSICAL EXAMINATION: VITAL SIGNS: His blood pressure was 118/78 this morning, respirations 20. GENERAL: He was alert and awake. He denied any nausea or vomiting. Denied any abdominal pain. HEENT: Head was atraumatic, normocephalic. NECK: Supple. LUNGS: Clear. No crackles or rales present. HEART: S1, S2 regular. ABDOMEN: Soft, nontender. EXTREMITIES: Had no edema. LABORATORY DATA: White count is 4.1, hemoglobin 9.1, hematocrit 28.8, platelet count was 70, he has a low platelet count as he came in with GI bleeding and alcoholic liver disease. His BUN is 8, creatinine is 0.7. We had repeated his procalcitonin, which dropped from 1.96 to 0.47. PLAN: He did receive Rocephin for 5 days and so at this time, empirically I will switch him to Vantin b.i.d. Initially, there was a plan to tap the ascitic fluid, but it was not much and he did have procalcitonin high which goes up in bacterial disease, so I will continue Vantin for 4 days. Reji Cha MD
[2018-01-08 06:41] LABS: ALB/GLOB RATIO 0.8 (1.0-2.1); ALBUMIN 3.4 g/dL (3.5-5.0); ALT/SGPT 31 U/L (21-72); AST/SGOT 81 U/L (17-59); BLOOD UREA NITROGEN 9 mg/dL (9-20); CALCIUM 8.2 mg/dl (8.6-10.4); GFR AFRICAN-AMERICAN > 60; GFR NON-AFRICAN AMERICAN > 60
[2018-01-08 06:52] LABS: BASO % 0.9 % (0.0-2.0); EOS # 0.1 K/uL (0.0-0.7); EOS % 2.5 % (0.0-4.0); HEMOGLOBIN 9.3 g/dL (12.0-18.0); LYMPH # 0.5 K/uL (1.0-4.3); LYMPH % 12.1 % (20.0-40.0); MEAN CELL VOLUME 82.8 fL (80.0-94.0); MEAN CORPUSCULAR HEMOGLOBIN 25.7 pg (27.0-31.0); MEAN CORPUSCULAR HGB CONC 31.1 g/dL (33.0-37.0); MEAN PLATELET VOLUME 8.6 fL (7.2-11.7); MONO # 0.6 K/uL (0.0-0.8); MONO % 13.6 % (0.0-10.0); NEUT # 3.1 K/uL (1.8-7.0); NEUT % 70.9 % (50.0-75.0); RBC 3.61 Mil/uL (4.40-5.90); RED CELL DISTRIBUTION WIDTH 22.4 % (11.5-14.5); WHITE BLOOD COUNT 4.4 K/uL (4.8-10.8)
[2018-01-08] MEDS ORDERED: Pantoprazole 40 mg EC Tab PO SCH (10:00)
[2018-01-08] MEDS: Cefpodoxime (Vantin) 200 mg Tab PO SCH (10:44)
[2018-01-08] MEDS: Ferric Sodium Gluconat Complex 62.5 mg/5 ml Vial IVPB SCH (10:44)
--- NOTE | 2018-01-08 10:49 | CP.PCM.PN ---
Subjective - Date & Time of Evaluation Date of Evaluation: 01/08/18 Time of Evaluation: 09:40 - Subjective Subjective: clinically same Objective - Vital Signs/Intake and Output Vital Signs (last 24 hours): Temp Pulse Resp BP Pulse Ox 98.0 F 103 H 20 101/70 100 01/08/18 08:23 01/08/18 08:23 01/08/18 08:23 01/08/18 08:23 01/08/18 08:23 - Medications Medications: Current Medications Acetaminophen (Tylenol 325mg Tab) 650 mg PO Q12 PRN PRN Reason: Pain, severe (8-10) Last Admin: 01/03/18 05:47 Dose: 650 mg Cefpodoxime Proxetil (Vantin) 200 mg PO Q12 [facility] Last Admin: 01/08/18 10:44 Dose: 200 mg Chlordiazepoxide (Librium) 25 mg PO BID [facility] Last Admin: 01/08/18 10:44 Dose: 25 mg Chlordiazepoxide (Librium) 25 mg PO Q8 PRN PRN Reason: alcohol withdrawal Last Admin: 01/07/18 04:19 Dose: 25 mg Lactulose (Enulose) 20 gm PO HS [facility] Last Admin: 01/07/18 21:35 Dose: 20 gm Pantoprazole Sodium (Protonix Ec Tab) 40 mg PO DAILY [facility] Last Admin: 01/08/18 10:44 Dose: 40 mg - Labs Labs: 01/08/18 06:18 01/08/18 06:18 PT 17.2 SECONDS (9.7-12.2) H 01/05/18 07:32 INR 1.5 01/05/18 07:32 APTT 38 SECONDS (21-34) H 01/01/18 20:39 - Constitutional Appears: Well - Head Exam Head Exam: ATRAUMATIC, NORMAL INSPECTION, NORMOCEPHALIC - Eye Exam Eye Exam: EOMI, Normal appearance, PERRL Pupil Exam: NORMAL ACCOMODATION, PERRL - ENT Exam ENT Exam: Mucous Membranes Moist, Normal Exam - Neck Exam Neck Exam: Full ROM, Normal Inspection. absent: Lymphadenopathy - Respiratory Exam Respiratory Exam: Decreased Breath Sounds - Cardiovascular Exam Cardiovascular Exam: REGULAR RHYTHM, +S1, +S2 - GI/Abdominal Exam GI & Abdominal Exam: Soft, Diminished Bowel Sounds - Rectal Exam Rectal Exam: Deferred
--- NOTE | 2018-01-08 14:02 | CP.PCM.PN ---
Subjective - Date & Time of Evaluation Date of Evaluation: 01/08/18 Time of Evaluation: 10:05 - Subjective Subjective: Medicine progress note for Dr. Leroy's service Patient seen and examined. Patient ambulating in hallway without difficulty. Patient reports good appetite. Patient denies any complaints at this time. Objective - Vital Signs/Intake and Output Vital Signs (last 24 hours): Temp Pulse Resp BP Pulse Ox 98.0 F 88 20 101/65 100 01/08/18 08:23 01/08/18 10:43 01/08/18 08:23 01/08/18 10:43 01/08/18 08:23 - Medications Medications: Current Medications Acetaminophen (Tylenol 325mg Tab) 650 mg PO Q12 PRN PRN Reason: Pain, severe (8-10) Last Admin: 01/03/18 05:47 Dose: 650 mg Cefpodoxime Proxetil (Vantin) 200 mg PO Q12 [facility] Last Admin: 01/08/18 10:44 Dose: 200 mg Lactulose (Enulose) 20 gm PO HS [facility] Last Admin: 01/07/18 21:35 Dose: 20 gm Pantoprazole Sodium (Protonix Ec Tab) 40 mg PO DAILY [facility] Last Admin: 01/08/18 10:44 Dose: 40 mg - Labs Labs: 01/08/18 06:18 01/08/18 06:18 PT 17.2 SECONDS (9.7-12.2) H 01/05/18 07:32 INR 1.5 01/05/18 07:32 APTT 38 SECONDS (21-34) H 01/01/18 20:39 - Constitutional Appears: Non-toxic, No Acute Distress - Head Exam Head Exam: ATRAUMATIC, NORMOCEPHALIC - Eye Exam Eye Exam: EOMI - ENT Exam ENT Exam: Mucous Membranes Moist - Respiratory Exam Respiratory Exam: Clear to Ausculation Bilateral, NORMAL BREATHING PATTERN - Cardiovascular Exam Cardiovascular Exam: +S1, +S2 - GI/Abdominal Exam GI & Abdominal Exam: Soft, Normal Bowel Sounds. absent: Distended, Firm, Tenderness - Extremities Exam Extremities Exam: Normal Inspection. absent: Pedal Edema - Neurological Exam Neurological Exam: Alert, Awake - Psychiatric Exam Psychiatric exam: Normal Affect - Skin Skin Exam: Warm Assessment and Plan - Assessment and Plan (Free Text) Assessment: Alcoholic liver cirrhosis Consult placed to GI, Dr. Martel, Recs appreciated - Low sodium diet as tolerated - Paracentesis not able to be performed due to paucity of ascitic fluid - Continue with antibiotic therapy as per ID - LFTs stable, continue to monitor - H/H stable, continue to monitor - Continue with lactulose therapy for HE prevention - ETOH cessation counseling - No further planned GI interventions, will sign off case. Please reconsult as necessary, thank you. Consult Placed to ID- Dr. Cha- follow up recs Patient to take cefpodixme for total 4 days Consult placed to psych- Dr. Quesada- follow up recs librium to be discontinued. patient to follow up with AA as outpatient lactulose 20mg PO HS to prevent hepatic encephalopathy Stool occult blood + Blood cx NGTD Urine cx NGTD Follow up Pro-tracy negative abdominal US 01/03 showed moderate abdominal ascites, liver cirrhosis, mild splenomegaly, patent portal vein endoscopy 01/02/2018 showing esophagitis and duodenitis paracentesis ordered for IR but unable to be performed, as mentioned above Tachycardia telemetry reviewed, appears to be sinus tachycardia improved s/p transfusion EKG with NSR in 80s echo normal with EF 60-65% Anemia patient s/p 1 unit PRBC on 01/04 hgp improved from 7.5 to 9.8, now up to 9.3 on 01/08 patient also transfused one unit on 01/01, 01/02 continue ferrlecit Serum Iron 18 TIBC 365 Serum B12 900 will continue to monitor Alcohol abuse alcohol cessation urged Consult placed to psych- Dr. Quesada- follow up recs lactulose 20mg PO HS to prevent hepatic encephalopathy Pancytopenia likely secondary to ETOh abuse c/w Ferrlecit 125mg IV daily Monitor Prophylactic measure protonix 40mg IVP daily Case discussed with Dr. Leroy All medical management as per Dr. Leroy Patient is stable for discharge home per Dr. Leroy. Patient is to follow up with Dr. Leroy and Dr. Sawyer on discharge. Patient is to be given information for Alcoholics Anonymous. Per Dr. Sawyer, patient is to maintain low sodium diet. Patient is being discharged with Lactulose 20g solution at night, pantoprazole 40mg daily, and cefpodoxime 200mg twice a day for 3 more days. Patient is to return to the hospital if symptoms reoccur or worsen.
[2018-01-08 16:27] VITALS: BP 96/60; PULSE 90; TEMP 98.2
--- NOTE | 2018-01-08 18:19 | CP.PCM.PN ---
Subjective - Date & Time of Evaluation Date of Evaluation: 01/08/18 Time of Evaluation: 03:15 - Subjective Subjective: dictated Objective - Vital Signs/Intake and Output Vital Signs (last 24 hours): Temp Pulse Resp BP Pulse Ox 98.2 F 90 20 96/60 L 100 01/08/18 15:25 01/08/18 15:25 01/08/18 15:25 01/08/18 15:25 01/08/18 15:25 Intake and Output: 01/08/18 01/08/18 06:59 18:59 Intake Total 500 Balance 500 - Medications Medications: Current Medications Acetaminophen (Tylenol 325mg Tab) 650 mg PO Q12 PRN PRN Reason: Pain, severe (8-10) Last Admin: 01/03/18 05:47 Dose: 650 mg Cefpodoxime Proxetil (Vantin) 200 mg PO Q12 [facility] Last Admin: 01/08/18 10:44 Dose: 200 mg Lactulose (Enulose) 20 gm PO HS [facility] Last Admin: 01/07/18 21:35 Dose: 20 gm Pantoprazole Sodium (Protonix Ec Tab) 40 mg PO DAILY [facility] Last Admin: 01/08/18 10:44 Dose: 40 mg - Labs Labs: 01/08/18 06:18 01/08/18 06:18 PT 17.2 SECONDS (9.7-12.2) H 01/05/18 07:32 INR 1.5 01/05/18 07:32 APTT 38 SECONDS (21-34) H 01/01/18 20:39
--- NOTE | 2018-01-08 23:34 | PN ---
DATE: 01/08/2018 SUBJECTIVE: The patient with no new complaints. He denies abdominal pain. Denies any vomiting at this time. I have changed his antibiotic to oral today, and we will monitor. PHYSICAL EXAMINATION: VITAL SIGNS: T-max is 98.2, pulse 90, blood pressure is 96/60, respirations are 20. He denies any nausea, vomiting, or diarrhea. HEENT: Head is atraumatic. NECK: Supple. LUNGS: Clear. HEART: S1, S2 is regular. ABDOMEN: Soft, nontender. EXTREMITIES: Have no edema. He came in with GI bleed, alcohol-like liver disease, and ascites. His labs are noted. White count is 4.4, hemoglobin 9.3 is stable, hematocrit 29.9, and has low platelets 68 and is on Vantin as he did have procalcitonin high. Reji Cha MD
== END 2018-01-08 19:34 | disposition home or self-care (01) | DRG 557 ==
LOC: C.ER 19:50 → C.9E 21:54 → C.6T 23:17
PROVIDERS: ADMIT Internal Medicine Nephrology; ATTEND Internal Medicine Nephrology
PROC: 30233N1 Transfusion of Nonautologous Red Blood Cells into Peripheral Vein, Percutaneous Approach (ICD-10-PCS; 2018-01-01)
PROC: 30233N1 Transfusion of Nonautologous Red Blood Cells into Peripheral Vein, Percutaneous Approach (ICD-10-PCS; 2018-01-02)
PROC: 30233R1 Transfusion of Nonautologous Platelets into Peripheral Vein, Percutaneous Approach (ICD-10-PCS; 2018-01-02)
PROC: 0DJ08ZZ Inspection of Upper Intestinal Tract, Via Natural or Artificial Opening Endoscopic (ICD-10-PCS; principal; 2018-01-02 09:48)
PROC: 30233N1 Transfusion of Nonautologous Red Blood Cells into Peripheral Vein, Percutaneous Approach (ICD-10-PCS; 2018-01-04)
DX: K70.11 Alcoholic hepatitis with ascites (principal); K22.6 Gastro-esophageal laceration-hemorrhage syndrome; K72.90 Hepatic failure, unspecified without coma; F10.239 Alcohol dependence with withdrawal, unspecified; R56.9 Unspecified convulsions; K70.31 Alcoholic cirrhosis of liver with ascites; D61.818 Other pancytopenia; D50.0 Iron deficiency anemia secondary to blood loss (chronic); Z87.11 Personal history of peptic ulcer disease; I10 Essential (primary) hypertension; K76.6 Portal hypertension; R74.0 Nonspecific elevation of levels of transaminase and lactic acid dehydrogenase [LDH]; I85.10 Secondary esophageal varices without bleeding; K29.70 Gastritis, unspecified, without bleeding; R14.0 Abdominal distension (gaseous); R50.9 Fever, unspecified; K29.80 Duodenitis without bleeding; K25.9 Gastric ulcer, unspecified as acute or chronic, without hemorrhage or perforation; K20.9 Esophagitis, unspecified; R00.0 Tachycardia, unspecified; K44.9 Diaphragmatic hernia without obstruction or gangrene; K31.89 Other diseases of stomach and duodenum

== ENCOUNTER 2018-05-27 10:14 | Inpatient (IN) | payer MEDICAID ==
[2018-05-27 10:14] VITALS: BMI 19.5
[2018-05-27 11:05] LABS: RBC 2.98 Mil/uL (4.40-5.90)
[2018-05-27 11:13] LABS: HEMOGLOBIN 7.5 g/dL (12.0-18.0); MEAN CELL VOLUME 79.5 fL (80.0-94.0); MEAN CORPUSCULAR HEMOGLOBIN 25.2 pg (27.0-31.0); MEAN CORPUSCULAR HGB CONC 31.7 g/dL (33.0-37.0); MEAN PLATELET VOLUME 8.5 fL (7.2-11.7); RED CELL DISTRIBUTION WIDTH 18.2 % (11.5-14.5); WHITE BLOOD COUNT 2.2 K/uL (4.8-10.8)
[2018-05-27 11:15] LABS: EOS % 1.4 % (0.0-4.0); LYMPH # 0.4 K/uL (1.0-4.3); LYMPH % 17.2 % (20.0-40.0); MONO # 0.2 K/uL (0.0-0.8); MONO % 10.4 % (0.0-10.0); NRBC % 0.2 % (0.0-2.0)
[2018-05-27 11:16] LABS: NEUT # 1.6 K/uL (1.8-7.0)
[2018-05-27 11:18] LABS: INR 1.6; PROTHROMBIN TIME 17.3 SECONDS (9.7-12.2)
[2018-05-27 11:19] LABS: ALB/GLOB RATIO 0.7 (1.0-2.1); ALBUMIN 3.3 g/dL (3.5-5.0); ALT/SGPT 42 U/L (21-72); AST/SGOT 196 U/L (17-59); BLOOD UREA NITROGEN 2 mg/dL (9-20); CALCIUM 7.7 mg/dl (8.6-10.4); GFR NON-AFRICAN AMERICAN > 60; LIPASE 347 U/L (23-300)
[2018-05-27 11:29] LABS: B-TYPE NATRIURETIC PEPTIDE 78.4 pg/mL (0-450)
--- NOTE | 2018-05-27 11:46 | RAD ---
Date of service: 05/27/2018 PROCEDURE: Radiographs of the chest and abdomen (obstructive series) HISTORY: abd pain COMPARISON: Chest radiograph 01/03/2018 TECHNIQUE: AP radiograph of the chest, with upright and supine radiographs of the abdomen. FINDINGS: CHEST: Lungs: No infiltrate. Left parahilar linear scar, unchanged. Questionable bulla in left apex. There is some left-sided volume loss with shift of the heart mediastinum towards the left. Cardiovascular: Normal heart size. Pleura: No pleural fluid. No pneumothorax. Other findings: None. ABDOMEN AND PELVIS: Bowel: Unremarkable bowel gas pattern. No evidence of mechanical obstruction. Free air: None. Bones: Unremarkable. Other findings: None. IMPRESSION: Left apical bulla. Left parahilar scar. Left-sided volume loss. Normal abdominal bowel gas pattern.
--- NOTE | 2018-05-27 11:55 | C.PDOC ---
History Of Present Illness 43yo male, with history of decompensating alcoholic cirrhosis, pancytopenia, non -compliant with medications and lactulose, brought to ER by for evaluation. Patient states he is continuously drinking alcohol and states he drank 3 beers today. He denies any fever, chills, vomiting, and offers no other complaints. Time Seen by Provider: 05/27/18 10:31 Chief Complaint (Nursing): GI Problem History Per: Patient, Family History/Exam Limitations: no limitations Past Medical History Reviewed: Historical Data, Nursing Documentation, Vital Signs Vital Signs: Last Vital Signs Temp 97.8 F 05/27/18 15:22 Pulse 99 H 05/27/18 15:22 Resp 20 05/27/18 15:22 BP 104/70 05/27/18 15:22 Pulse Ox 97 05/27/18 15:22 - Medical History PMH: Anemia, Gastritis (+ H. PYLORII), Gastrointestinal Ulcer, HTN (PORTAL), Seizures Denies: Fractures, Chronic Kidney Disease Surgical History: Endoscopy - [facility] Procedures ALCOHOL DETOXIFICATION (10/03/14) DETOXIFICATION SERVICES FOR SUBSTANCE ABUSE TREATMENT (07/16/17) ESOPHAGOGASTRODUODENOSCOPY [EGD] W/CLOSED BIOPSY (08/10/14) INDIV MORNING NEWS ANCHOR FOR SUBSTANCE ABUSE TREATMENT, BEHAVIORAL (08/05/15) INDIV PSYCHOTHERAPY FOR SUBSTANCE ABUSE TREATMENT, SUPPORT (04/25/17) INSERTION OF ENDOTRACHEAL AIRWAY INTO TRACHEA, VIA OPENING (08/05/15) INSPECTION OF UPPER INTESTINAL TRACT, ENDO (01/01/18) MEDS MGMT FOR SUBSTANCE ABUSE TREATMENT, OTH REPL MED (04/25/17) OCCLUSION ESOPHAGEAL VEIN W EXTRALUM DEV, PERC ENDO (07/16/17) OTHER ENDOSCOPY OF SM INTEST (11/19/14) PACKED CELL TRANSFUSION (04/04/15) PLATELET TRANSFUSION (11/19/14) RESPIRATORY VENTILATION, 24-96 CONSECUTIVE HOURS (08/05/15) TRANSFUSE NONAUT PLATELETS IN PERIPH VEIN, PERC (01/01/18) TRANSFUSE NONAUT RED BLOOD CELLS IN PERIPH VEIN, PERC (01/01/18) VACCINATION NEC (03/14/14) Family History: States: No Known Family Hx - Social History Hx Tobacco Use: No Hx Alcohol Use: Yes Hx Substance Use: No - Immunization History Hx Tetanus Toxoid Vaccination: No Hx Influenza Vaccination: No Hx Pneumococcal Vaccination: No Review Of Systems Except As Marked, All Systems Reviewed And Found Negative. Constitutional: Positive for: Malaise. Negative for: Fever, Chills Cardiovascular: Negative for: Chest Pain Respiratory: Negative for: Shortness of Breath Gastrointestinal: Positive for: Other (abdominal distention). Negative for: Vomiting Physical Exam - Physical Exam Appears: Non-toxic, Chronically Ill (emaciated) Skin: Warm Head: Atraumatic, Normacephalic Eye(s): bilateral: Conjunctiva Pale Neck: Supple Chest: Symmetrical Cardiovascular: Rhythm Regular Respiratory: Normal Breath Sounds Gastrointestinal/Abdominal: Soft, No Tenderness, Distention, Other (shifting dullness; caput medusa; no spider angioedema) Extremity: Normal ROM, No Pedal Edema Neurological/Psych: Oriented x3 ED Course And Treatment - Laboratory Results Result Diagrams: 05/27/18 11:00 05/27/18 11:00 Lab Interpretation: Abnormal (pancytopenia with significant thrombocytopenia, ETOH 209 H, Ammonia 27 wnl) ECG: Interpreted By Me ECG Rhythm: Sinus Rhythm ECG Interpretation: Normal O2 Sat by Pulse Oximetry: 95 (RA) Pulse Ox Interpretation: Normal - Radiology CXR: Interpreted by Me CXR Interpretation: Yes: No Acute Disease - Other Rad abd x 2 X-Ray: Interpreted by Me (normal stool/gas pattern) - CT Scan/US US ABdomen Other Rad Studies (CT/US): Radiology Report Reviewed CT/US Interpretation: FINDINGS: LIVER: Measures 17.9 cm. There is diffuse increased echogenicity of the liver parenchyma with nodular contour. No mass. No intrahepatic bile duct dilatation. GALLBLADDER: There are no gallstones or pericholecystic fluid. Gallbladder sludge is identified with mild diffuse secondary wall thickening. COMMON BILE DUCT: Measures 3.0 mm. No stones. No dilatation. PANCREAS: Unremarkable as visualized. No mass. No ductal dilatation. RIGHT KIDNEY: Measures 10.0cm. Normal echogenicity. No calculus, mass, or hydronephrosis. LEFT KIDNEY: Measures 10.4cm. Normal echogenicity. No calculus, mass, or hydronephrosis. SPLEEN: Enlarged and measures 15.5 cm. AORTA: No aneurysmal dilatation. IVC: Unremarkable. OTHER FINDINGS: Moderate. IMPRESSION: Cirrhosis of liver and moderate ascites. Hepatosplenomegaly. Progress Note: lactulose, librium PO Reevaluation Time: 12:37 Reassessment Condition: Improved - Physician Consult Information Outcome Of Conversation: 1050, 1240 d/w Dr. Henny Leroy, PMD- ok to admit. Medical Decision Making Medical Decision Making: Plan: -- Labs -- US Abdomen -- Urinalysis -- Lactulose 40gm PO -- Librium 50mg PO decompensated hepatic cirrhosis with moderate ascites prior abd paracentesis non-compliant with home meds No Budd Chiari syndrome by US continued alcoholism- denies ETOH today, but ETOH 209 in ED eval Librium to prevent w/d Ammonia 27 wnl Continue Lactulose to prevent hepatic encephalopathy mild/mod abd ascites Consider abd paracentesis caution as INR 1.6 and plts 20K Disposition Doctor Will See Patient In The: Hospital Counseled Patient/Family Regarding: Studies Performed, Diagnosis - Disposition Disposition: HOSPITALIZED Disposition Time: 12:44 Condition: GOOD - Clinical Impression Clinical Impression: Ascites due to alcoholic cirrhosis, Alcohol dependence, Pancytopenia - Scribe Statement The provider has reviewed the documentation as recorded by the Adriana Watkins Provider Attestation: All medical record entries made by the Adriana were at my direction and personally dictated by me. I have reviewed the chart and agree that the record accurately reflects my personal performance of the history, physical exam, medical decision making, and the department course for this patient. I have also personally directed, reviewed, and agree with the discharge instructions and disposition.
--- NOTE | 2018-05-27 12:35 | US ---
Date of service: 05/27/2018 HISTORY: liver failure, ascites COMPARISON: 01/03/2018. TECHNIQUE: Sonographic evaluation of the abdomen. FINDINGS: LIVER: Measures 17.9 cm. There is diffuse increased echogenicity of the liver parenchyma with nodular contour. No mass. No intrahepatic bile duct dilatation. GALLBLADDER: There are no gallstones or pericholecystic fluid. Gallbladder sludge is identified with mild diffuse secondary wall thickening. COMMON BILE DUCT: Measures 3.0 mm. No stones. No dilatation. PANCREAS: Unremarkable as visualized. No mass. No ductal dilatation. RIGHT KIDNEY: Measures 10.0cm. Normal echogenicity. No calculus, mass, or hydronephrosis. LEFT KIDNEY: Measures 10.4cm. Normal echogenicity. No calculus, mass, or hydronephrosis. SPLEEN: Enlarged and measures 15.5 cm. AORTA: No aneurysmal dilatation. IVC: Unremarkable. OTHER FINDINGS: Moderate. IMPRESSION: Cirrhosis of liver and moderate ascites. Hepatosplenomegaly.
[2018-05-27 12:40] LABS: URINE BILIRUBIN NEGATIVE (NEGATIVE); URINE BLOOD NEGATIVE (NEGATIVE); URINE CLARITY Clear (Clear); URINE COLOR Yellow (YELLOW); URINE GLUCOSE (UA) NORMAL (Normal); URINE LEUKOCYTE ESTERASE NEG Leu/uL (Negative); URINE PROTEIN NEGATIVE (NEGATIVE); URINE UROBILINOGEN NORMAL mg/dL (0.2-1.0)
[2018-05-27 12:55] LABS: BARBITURATES, UR NEGATIVE (NEGATIVE); BENZODIAZEPINES, UR NEGATIVE (NEGATIVE); OPIATES, UR NEGATIVE (NEGATIVE); PHENCYCLIDINE, UR NEGATIVE (NEGATIVE)
[2018-05-27] MEDS ORDERED: Multivitamin (MVI) 10 ML, Thiamine 100 MG, Folic Acid 1 MG in Sodium Chloride 0.9% 1,00... IV ONE (14:30)
--- NOTE | 2018-05-27 17:39 | CP.PCM.HP ---
Past Patient History - Infectious Disease Hx of Infectious Diseases: None - Past Medical History & Family History Past Medical History?: Yes - Past Social History Smoking Status: Never Smoked - CARDIAC Hx Hypertension: Yes (PORTAL) - PULMONARY Hx Respiratory Disorders: No - NEUROLOGICAL Hx Seizures: Yes - HEENT Hx HEENT Problems: No - RENAL Hx Chronic Kidney Disease: No - ENDOCRINE/METABOLIC Hx Endocrine Disorders: No - HEMATOLOGICAL/ONCOLOGICAL Hx Anemia: Yes - INTEGUMENTARY Hx Dermatological Problems: No - MUSCULOSKELETAL/RHEUMATOLOGICAL Hx Falls: No Hx Fractures: No - GASTROINTESTINAL Hx Gastritis: Yes (+ H. PYLORII) - GENITOURINARY/GYNECOLOGICAL Hx Genitourinary Disorders: No - PSYCHIATRIC Hx Substance Use: No - SURGICAL HISTORY Hx Surgeries: Yes Other/Comment: Endoscopy - ANESTHESIA Hx Anesthesia: Yes Hx Anesthesia Reactions: No Meds Allergies/Adverse Reactions: Allergies Allergy/AdvReac Type Severity Reaction Status Date / Time No Known Allergies Allergy Verified 07/16/17 09:42 Physical Exam - Constitutional Appears: Well - Head Exam Head Exam: ATRAUMATIC, NORMAL INSPECTION, NORMOCEPHALIC - Eye Exam Eye Exam: EOMI, Normal appearance, PERRL Pupil Exam: NORMAL ACCOMODATION, PERRL - ENT Exam ENT Exam: Mucous Membranes Moist, Normal Exam - Neck Exam Neck exam: Positive for: Normal Inspection - Respiratory Exam Respiratory Exam: Decreased Breath Sounds - Cardiovascular Exam Cardiovascular Exam: REGULAR RHYTHM, +S1, +S2 - GI/Abdominal Exam GI & Abdominal Exam: Diminished Bowel Sounds, Soft - Rectal Exam Rectal Exam: Deferred Results - Vital Signs Recent Vital Signs: Last Vital Signs Temp 97.8 F 05/27/18 15:22 Pulse 99 H 05/27/18 15:22 Resp 20 05/27/18 15:22 BP 104/70 05/27/18 15:22 Pulse Ox 97 05/27/18 15:22 - Labs Result Diagrams: 05/27/18 11:00 05/27/18 11:00 Labs: Laboratory Results - last 24 hr 05/27/18 05/27/18 05/27/18 11:00 11:00 11:00 WBC 2.2 L RBC 2.98 L Hgb 7.5 L Hct 23.7 L MCV 79.5 L D MCH 25.2 L MCHC 31.7 L RDW 18.2 H Plt Count 20 L* D MPV 8.5 Neut % (Auto) 69.0 Lymph % (Auto) 17.2 L Rooks % (Auto) 10.4 H Eos % (Auto) 1.4 Baso % (Auto) 2.0 Neut # (Auto) 1.6 L Lymph # (Auto) 0.4 L Rooks # (Auto) 0.2 Eos # (Auto) 0.0 Baso # (Auto) 0.0 Differential Comment PT 17.3 H INR 1.6 APTT 44 H Sodium 141 Potassium 3.7 Chloride 104 Carbon Dioxide 21 L Anion Gap 19 BUN 2 L Creatinine 0.6 L Est GFR ( Amer) > 60 Est GFR (Non-Af Amer) > 60 Random Glucose 102 Calcium 7.7 L Phosphorus Magnesium Total Bilirubin 3.3 H AST 196 H D ALT 42 Alkaline Phosphatase 192 H Ammonia Troponin I < 0.0120 NT-Pro-B Natriuret Pep 78.4 Total Protein 8.3 Albumin 3.3 L Globulin 5.0 H Albumin/Globulin Ratio 0.7 L Lipase 347 H Urine Color Urine Clarity Urine pH Ur Specific [place] Urine Protein Urine Glucose (UA) Urine Ketones Urine Blood Urine Nitrate Urine Bilirubin Urine Urobilinogen Ur Leukocyte Esterase Urine WBC (Auto) Urine Opiates Screen Urine Methadone Screen Ur Barbiturates Screen Ur Phencyclidine Scrn Ur Amphetamines Screen U Benzodiazepines Scrn U Oth Cocaine Metabols U Cannabinoids Screen Alcohol, Quantitative 209 H 05/27/18 05/27/18 05/27/18 11:00 12:32 12:32 WBC RBC Hgb Hct MCV MCH MCHC RDW Plt Count MPV Neut % (Auto) Lymph % (Auto) Rooks % (Auto) Eos % (Auto) Baso % (Auto) Neut # (Auto) Lymph # (Auto) [place] # (Auto) Eos # (Auto) Baso # (Auto) Differential Comment PT INR APTT Sodium Potassium Chloride Carbon Dioxide Anion Gap BUN Creatinine Est GFR ( Amer) Est GFR (Non-Af Amer) Random Glucose Calcium Phosphorus Magnesium Total Bilirubin AST ALT Alkaline Phosphatase Ammonia 27 Troponin I NT-Pro-B Natriuret Pep Total Protein Albumin Globulin Albumin/Globulin Ratio Lipase Urine Color Yellow Urine Clarity Clear Urine pH 7.0 Ur Specific [place] 1.002 L Urine Protein Negative Urine Glucose (UA) Normal Urine Ketones Negative Urine Blood Negative Urine Nitrate Negative Urine Bilirubin Negative Urine Urobilinogen Normal Ur Leukocyte Esterase Neg Urine WBC (Auto) < 1 Urine Opiates Screen Negative Urine Methadone Screen Negative Ur Barbiturates Screen Negative Ur Phencyclidine Scrn Negative Ur Amphetamines Screen Negative U Benzodiazepines Scrn Negative U Oth Cocaine Metabols Negative U Cannabinoids Screen Negative Alcohol, Quantitative 05/27/18 17:00 WBC RBC Hgb Hct MCV MCH MCHC RDW Plt Count MPV Neut % (Auto) Lymph % (Auto) [place] % (Auto) Eos % (Auto) Baso % (Auto) Neut # (Auto) Lymph # (Auto) [place] # (Auto) Eos # (Auto) Baso # (Auto) Differential Comment PT INR APTT Sodium Potassium Chloride Carbon Dioxide Anion Gap BUN Creatinine Est GFR ( Amer) Est GFR (Non-Af Amer) Random Glucose Calcium Phosphorus 3.0 Magnesium 1.4 L Total Bilirubin AST ALT Alkaline Phosphatase Ammonia Troponin I NT-Pro-B Natriuret Pep Total Protein Albumin Globulin Albumin/Globulin Ratio Lipase Urine Color Urine Clarity Urine pH Ur Specific [place] Urine Protein Urine Glucose (UA) Urine Ketones Urine Blood Urine Nitrate Urine Bilirubin Urine Urobilinogen Ur Leukocyte Esterase Urine WBC (Auto) Urine Opiates Screen Urine Methadone Screen Ur Barbiturates Screen Ur Phencyclidine Scrn Ur Amphetamines Screen U Benzodiazepines Scrn U Oth Cocaine Metabols U Cannabinoids Screen Alcohol, Quantitative
--- NOTE | 2018-05-28 06:47 | CP.PCM.CON ---
<Ish Mccartney - Last Filed: 05/28/18 07:47> History of Present Illness - History of Present Illness History of Present Illness: PGY-4 GI Fellow Consult Note Mr. Mendoza is a 43 yo M with EtOH Cirrhosis c/b ascites, HE, EV (s/p banding), Ongoing EtOH Abuse, H/o MW Tear presenting at behest of as pt continues to drink EtOH and worsening abd distention. He states that over the last days to weeks he has had worsening abdominal distension to the point that his clothes don't fit well anymore. States that he stopped taking all medication about one month ago and continues to drink several beers per day with last drink being just prior to arrival. He denies any abd pain, N/V, hematemesis, melena nor hematochezia. He states his last BM was a the day prior that he described as a colorless liquid. 12 point ROS negative other than stated above MHx: As stated in HPI SurgHx: Last EGD 01/06/18 with Small E, LA-A Esophagitis, Small HH, Mod PHG, Erosive gastritis and duodenities (Bx negative). EV banded in Jul 2017. Meds: Reviewed in MAR SHx: Lives with and young son, unemployed, drinks ETOH 2-4x24oz beers since age 16 FHx: Denies colon cancer All: NKDA Past Patient History - Infectious Disease Hx of Infectious Diseases: None - Past Medical History & Family History Past Medical History?: Yes - Past Social History Smoking Status: Never Smoked - CARDIAC Hx Hypertension: Yes (PORTAL) - PULMONARY Hx Respiratory Disorders: No - NEUROLOGICAL Hx Seizures: Yes - HEENT Hx HEENT Problems: No - RENAL Hx Chronic Kidney Disease: No - ENDOCRINE/METABOLIC Hx Endocrine Disorders: No - HEMATOLOGICAL/ONCOLOGICAL Hx Anemia: Yes - INTEGUMENTARY Hx Dermatological Problems: No - MUSCULOSKELETAL/RHEUMATOLOGICAL Hx Fractures: No - GASTROINTESTINAL Hx Gastritis: Yes (+ H. PYLORII) - GENITOURINARY/GYNECOLOGICAL Hx Genitourinary Disorders: No - PSYCHIATRIC Hx Substance Use: No - SURGICAL HISTORY Hx Surgeries: Yes Other/Comment: Endoscopy - ANESTHESIA Hx Anesthesia: Yes Hx Anesthesia Reactions: No Meds Allergies/Adverse Reactions: Allergies Allergy/AdvReac Type Severity Reaction Status Date / Time No Known Allergies Allergy Verified 07/16/17 09:42 - Medications Medications: Current Medications Lactulose (Enulose) 20 gm PO [facility] Last Admin: 05/27/18 22:01 Dose: Not Given Lorazepam (Ativan) 1 mg IVP Q4H PRN PRN Reason: Symptoms of alcohol withdrawl Lorazepam (Ativan) 2 mg PO Q6H [facility] PRN Reason: Taper Stop: 05/31/18 15:59 Last Admin: 05/28/18 03:59 Dose: 2 mg Pantoprazole Sodium (Protonix Inj) 40 mg IVP DAILY [facility] Trazodone HCl (Desyrel) 50 mg PO [facility] Last Admin: 05/27/18 22:00 Dose: 50 mg Physical Exam - Constitutional Appears: No Acute Distress, Cachectic, Chronically Ill - Head Exam Head Exam: ATRAUMATIC, NORMAL INSPECTION - Eye Exam Eye Exam: EOMI, Scleral icterus. absent: Conjunctival injection - ENT Exam ENT Exam: Mucous Membranes Dry. absent: Mucous Membranes Moist, Normal External Ear Exam - Respiratory Exam Respiratory Exam: Clear to Auscultation Bilateral, NORMAL BREATHING PATTERN. absent: Accessory Muscle Use, Chest Wall Tenderness, Wheezes, Respiratory Distress - GI/Abdominal Exam GI & Abdominal Exam: Distended, Normal Bowel Sounds, Soft. absent: Bruit, Diminished Bowel Sounds, Firm, Guarding, Hernia, Rigid, Tenderness Additional comments: flank fullness, +umb veins - Extremities Exam Extremities exam: Positive for: normal inspection. Negative for: pedal edema - Neurological Exam Neurological exam: Alert, CN II-XII Intact Additional comments: no asterixis though poor effort - Psychiatric Exam Psychiatric exam: Normal Affect, Normal Mood - Skin Skin Exam: Intact, Warm Additional comments: +jaundice Results - Vital Signs Recent Vital Signs: Last Vital Signs Temp 98.9 F 05/27/18 23:38 Pulse 89 05/27/18 23:38 Resp 20 05/27/18 23:38 BP 116/79 05/27/18 23:38 Pulse Ox 96 05/27/18 23:38 - Labs Result Diagrams: 05/28/18 06:57 05/28/18 06:57 Labs: Laboratory Results - last 24 hr 05/27/18 05/27/18 05/27/18 11:00 11:00 11:00 WBC 2.2 L RBC 2.98 L Hgb 7.5 L Hct 23.7 L MCV 79.5 L D MCH 25.2 L MCHC 31.7 L RDW 18.2 H Plt Count 20 L* D MPV 8.5 Neut % (Auto) 69.0 Lymph % (Auto) 17.2 L Dent % (Auto) 10.4 H Eos % (Auto) 1.4 Baso % (Auto) 2.0 Neut # (Auto) 1.6 L Lymph # (Auto) 0.4 L Dent # (Auto) 0.2 Eos # (Auto) 0.0 Baso # (Auto) 0.0 Differential Comment PT 17.3 H INR 1.6 APTT 44 H Sodium 141 Potassium 3.7 Chloride 104 Carbon Dioxide 21 L Anion Gap 19 BUN 2 L Creatinine 0.6 L Est GFR ( Amer) > 60 Est GFR (Non-Af Amer) > 60 Random Glucose 102 Calcium 7.7 L Phosphorus Magnesium Total Bilirubin 3.3 H AST 196 H D ALT 42 Alkaline Phosphatase 192 H Ammonia Troponin I < 0.0120 NT-Pro-B Natriuret Pep 78.4 Total Protein 8.3 Albumin 3.3 L Globulin 5.0 H Albumin/Globulin Ratio 0.7 L Lipase 347 H Urine Color Urine Clarity Urine pH Ur Specific [place] Urine Protein Urine Glucose (UA) Urine Ketones Urine Blood Urine Nitrate Urine Bilirubin Urine Urobilinogen Ur Leukocyte Esterase Urine WBC (Auto) Urine Opiates Screen Urine Methadone Screen Ur Barbiturates Screen Ur Phencyclidine Scrn Ur Amphetamines Screen U Benzodiazepines Scrn U Oth Cocaine Metabols U Cannabinoids Screen Alcohol, Quantitative 209 H 05/27/18 05/27/18 05/27/18 11:00 12:32 12:32 WBC RBC Hgb Hct MCV MCH MCHC RDW Plt Count MPV Neut % (Auto) Lymph % (Auto) Dent % (Auto) Eos % (Auto) Baso % (Auto) Neut # (Auto) Lymph # (Auto) Dent # (Auto) Eos # (Auto) Baso # (Auto) Differential Comment PT INR APTT Sodium Potassium Chloride Carbon Dioxide Anion Gap BUN Creatinine Est GFR ( Amer) Est GFR (Non-Af Amer) Random Glucose Calcium Phosphorus Magnesium Total Bilirubin AST ALT Alkaline Phosphatase Ammonia 27 Troponin I NT-Pro-B Natriuret Pep Total Protein Albumin Globulin Albumin/Globulin Ratio Lipase Urine Color Yellow Urine Clarity Clear Urine pH 7.0 Ur Specific [place] 1.002 L Urine Protein Negative Urine Glucose (UA) Normal Urine Ketones Negative Urine Blood Negative Urine Nitrate Negative Urine Bilirubin Negative Urine Urobilinogen Normal Ur Leukocyte Esterase Neg Urine WBC (Auto) < 1 Urine Opiates Screen Negative Urine Methadone Screen Negative Ur Barbiturates Screen Negative Ur Phencyclidine Scrn Negative Ur Amphetamines Screen Negative U Benzodiazepines Scrn Negative U Oth Cocaine Metabols Negative U Cannabinoids Screen Negative Alcohol, Quantitative 05/27/18 17:00 WBC RBC Hgb Hct MCV MCH MCHC RDW Plt Count MPV Neut % (Auto) Lymph % (Auto) Dent % (Auto) Eos % (Auto) Baso % (Auto) Neut # (Auto) Lymph # (Auto) Dent # (Auto) Eos # (Auto) Baso # (Auto) Differential Comment PT INR APTT Sodium Potassium Chloride Carbon Dioxide Anion Gap BUN Creatinine Est GFR ( Amer) Est GFR (Non-Af Amer) Random Glucose Calcium Phosphorus 3.0 Magnesium 1.4 L Total Bilirubin AST ALT Alkaline Phosphatase Ammonia Troponin I NT-Pro-B Natriuret Pep Total Protein Albumin Globulin Albumin/Globulin Ratio Lipase Urine Color Urine Clarity Urine pH Ur Specific [place] Urine Protein Urine Glucose (UA) Urine Ketones Urine Blood Urine Nitrate Urine Bilirubin Urine Urobilinogen Ur Leukocyte Esterase Urine WBC (Auto) Urine Opiates Screen Urine Methadone Screen Ur Barbiturates Screen Ur Phencyclidine Scrn Ur Amphetamines Screen U Benzodiazepines Scrn U Oth Cocaine Metabols U Cannabinoids Screen Alcohol, Quantitative Assessment & Plan - Assessment and Plan (Free Text) Assessment: 43 yo M with EtOH cirrhosis presenting with ongoing EtOH Abuse and Abd distention. # EtOH Cirrhosis: MELD-Na: 16, Maddrey 28.68. Ongoing EtOH abuse and not on diuretics as OP. - Ascites: Supposed to be on diuretics, not on low Na diet. - EV: s/p banding Jul 2017, last EGD 01/06/18 with small EV - HCC: Due for imaging - HE: Cont lactulose, titrating to at least 3 BMs per day # EtOH Abuse: daily multiple beer drinker, last drink just prior to arrival Plan: - Ordered US guided Paracentesis, check Cell Count w/diff, Cytology and Albumin - Start Furodemide 20 mg daily, Spironolactone 40 mg daily - Low Na Diet - Monitor for EtOH w/d - Counseled on EtOH cessation - Will need BB for EV ppx, but will hold off for now given starting new diuretics to monitor BP - Check AFP in AM - Lactulose to at least 3 BMs/day Pt seen and examined with Dr. Martel <Danyel Martel - Last Filed: 05/28/18 09:44> Meds - Medications Medications: Current Medications Furosemide (Lasix) 20 mg PO DAILY [facility] Lactulose (Enulose) 20 gm PO BID [facility] Lorazepam (Ativan) 1 mg IVP Q4H PRN PRN Reason: Symptoms of alcohol withdrawl Lorazepam (Ativan) 2 mg PO Q6H [facility] PRN Reason: Taper Stop: 05/31/18 15:59 Last Admin: 05/28/18 03:59 Dose: 2 mg Pantoprazole Sodium (Protonix Inj) 40 mg IVP DAILY [facility] Spironolactone (Aldactone) 50 mg PO DAILY [facility] Trazodone HCl (Desyrel) 50 mg PO HS [facility] Last Admin: 05/27/18 22:00 Dose: 50 mg Results - Vital Signs Recent Vital Signs: Last Vital Signs Temp 98.4 F 05/28/18 08:30 Pulse 100 H 05/28/18 08:30 Resp 20 05/28/18 08:30 BP 116/79 05/28/18 08:30 Pulse Ox 97 05/28/18 08:30 - Labs Result Diagrams: 05/28/18 06:57 05/28/18 06:57 Labs: Laboratory Results - last 24 hr 05/27/18 05/27/18 05/27/18 11:00 11:00 11:00 WBC 2.2 L RBC 2.98 L Hgb 7.5 L Hct 23.7 L MCV 79.5 L D MCH 25.2 L MCHC 31.7 L RDW 18.2 H Plt Count 20 L* D MPV 8.5 Neut % (Auto) 69.0 Lymph % (Auto) 17.2 L Dent % (Auto) 10.4 H Eos % (Auto) 1.4 Baso % (Auto) 2.0 Neut # (Auto) 1.6 L Lymph # (Auto) 0.4 L Dent # (Auto) 0.2 Eos # (Auto) 0.0 Baso # (Auto) 0.0 Differential Comment PT 17.3 H INR 1.6 APTT 44 H Sodium 141 Potassium 3.7 Chloride 104 Carbon Dioxide 21 L Anion Gap 19 BUN 2 L Creatinine 0.6 L Est GFR ( Amer) > 60 Est GFR (Non-Af Amer) > 60 Random Glucose 102 Calcium 7.7 L Phosphorus Magnesium Total Bilirubin 3.3 H AST 196 H D ALT 42 Alkaline Phosphatase 192 H Ammonia Troponin I < 0.0120 NT-Pro-B Natriuret Pep 78.4 Total Protein 8.3 Albumin 3.3 L Globulin 5.0 H Albumin/Globulin Ratio 0.7 L Lipase 347 H Urine Color Urine Clarity Urine pH Ur Specific [place] Urine Protein Urine Glucose (UA) Urine Ketones Urine Blood Urine Nitrate Urine Bilirubin Urine Urobilinogen Ur Leukocyte Esterase Urine WBC (Auto) Urine Opiates Screen Urine Methadone Screen Ur Barbiturates Screen Ur Phencyclidine Scrn Ur Amphetamines Screen U Benzodiazepines Scrn U Oth Cocaine Metabols U Cannabinoids Screen Alcohol, Quantitative 209 H 05/27/18 05/27/18 05/27/18 11:00 12:32 12:32 WBC RBC Hgb Hct MCV MCH MCHC RDW Plt Count MPV Neut % (Auto) Lymph % (Auto) Dent % (Auto) Eos % (Auto) Baso % (Auto) Neut # (Auto) Lymph # (Auto) Dent # (Auto) Eos # (Auto) Baso # (Auto) Differential Comment PT INR APTT Sodium Potassium Chloride Carbon Dioxide Anion Gap BUN Creatinine Est GFR ( Amer) Est GFR (Non-Af Amer) Random Glucose Calcium Phosphorus Magnesium Total Bilirubin AST ALT Alkaline Phosphatase Ammonia 27 Troponin I NT-Pro-B Natriuret Pep Total Protein Albumin Globulin Albumin/Globulin Ratio Lipase Urine Color Yellow Urine Clarity Clear Urine pH 7.0 Ur Specific [place] 1.002 L Urine Protein Negative Urine Glucose (UA) Normal Urine Ketones Negative Urine Blood Negative Urine Nitrate Negative Urine Bilirubin Negative Urine Urobilinogen Normal Ur Leukocyte Esterase Neg Urine WBC (Auto) < 1 Urine Opiates Screen Negative Urine Methadone Screen Negative Ur Barbiturates Screen Negative Ur Phencyclidine Scrn Negative Ur Amphetamines Screen Negative U Benzodiazepines Scrn Negative U Oth Cocaine Metabols Negative U Cannabinoids Screen Negative Alcohol, Quantitative 05/27/18 05/28/18 05/28/18 17:00 06:57 06:57 WBC 2.0 L* RBC 2.79 L Hgb 7.0 L Hct 22.2 L MCV 79.6 L MCH 25.0 L MCHC 31.4 L RDW 18.5 H Plt Count 20 L* MPV 8.5 Neut % (Auto) 71.6 Lymph % (Auto) 14.9 L Dent % (Auto) 11.0 H Eos % (Auto) 1.4 Baso % (Auto) 1.1 Neut # (Auto) 1.4 L Lymph # (Auto) 0.3 L Dent # (Auto) 0.2 Eos # (Auto) 0.0 Baso # (Auto) 0.0 Differential Comment PT INR APTT Sodium 138 Potassium 3.5 L Chloride 109 H Carbon Dioxide 20 L Anion Gap 13 BUN 2 L Creatinine 0.5 L Est GFR ( Amer) > 60 Est GFR (Non-Af Amer) > 60 Random Glucose 102 Calcium 7.2 L Phosphorus 3.0 Magnesium 1.4 L Total Bilirubin 4.1 H AST 132 H D ALT 40 Alkaline Phosphatase 162 H Ammonia Troponin I NT-Pro-B Natriuret Pep Total Protein 7.1 Albumin 2.8 L Globulin 4.3 H Albumin/Globulin Ratio 0.7 L Lipase Urine Color Urine Clarity Urine pH Ur Specific [place] Urine Protein Urine Glucose (UA) Urine Ketones Urine Blood Urine Nitrate Urine Bilirubin Urine Urobilinogen Ur Leukocyte Esterase Urine WBC (Auto) Urine Opiates Screen Urine Methadone Screen Ur Barbiturates Screen Ur Phencyclidine Scrn Ur Amphetamines Screen U Benzodiazepines Scrn U Oth Cocaine Metabols U Cannabinoids Screen Alcohol, Quantitative Attending/Attestation - Attestation I have personally seen and examined this patient.: Yes I have fully participated in the care of the patient.: Yes I have reviewed all pertinent clinical information: Yes Notes (Text): 05/28/18 09:37 I have seen and examined patient with GI fellow. Agree with above documentation with the following additions. In brief, this is a 43 year old male with history of decompensated ETOH cirrhosis who presents to hospital with complaint of progressive abdominal distention for the past one week. He admits to medication non-compliance for the past one month and continues to consume ETOH on a daily basis. He denies abdominal pain, nausea, vomiting, fever/chills , weight loss, melena. He had an EGD in December 2017 which showed small distal varices (not amenable to therapy), portal hypertensive gastropathy. Additional physical exam: Cardio: RRR S1S2 Decompensated ETOH cirrhosis, admission MELD 16 Ongoing ETOH abuse Abdominal distention - ascites Pancytopenia - Low sodium diet as tolerated - Continue with diuretic therapy, monitor electrolytes - H/H stable, continue to monitor, avoid over-transfusion of PRBC products - Patient will require diagnostic/therapeutic paracentesis, though will likely require platelet transfusion prior given significant thrombocytopenia. Follow up hematology recommendations. - Continue with lactulose for HE prevention - Monitor for signs of ETOH withdrawal - Obtain abdominal US, AFP - Overall prognosis for patient is quite poor, not a transplant candidate due to ongoing ETOH abuse. Will continue to monitor patient clinical course.
[2018-05-28 07:10] LABS: LYMPH # 0.3 K/uL (1.0-4.3); MONO # 0.2 K/uL (0.0-0.8); NEUT # 1.4 K/uL (1.8-7.0); NRBC % 0.3 % (0.0-2.0); RED CELL DISTRIBUTION WIDTH 18.5 % (11.5-14.5)
--- NOTE | 2018-05-28 07:25 | CP.PCM.PN ---
Subjective - Date & Time of Evaluation Date of Evaluation: 05/28/18 Time of Evaluation: 07:24 - Subjective Subjective: PGY2 Medicine Note for Dr. Kendrick Leroy Patient was brought in by for evaluation of worsening abdominal distention. Patient is very quiet and does not want to speak/answer questions. is at bedside that provided the large majority of history. Patient has past medical history of alcohol abuse, cirrhosis, ascites, hepatic encephalopathy, esophageal varices, Deborah-Diggs tear and anemia. His abdomen has been getting progressively more distended over the past weeks to month. He is still drinking every day and has stopped taking all of his medications. Patient denies any pain and did not want to come to the hospital. He states he has never had a paracentesis. He reports colorless liquid stools. Denies fevers , chills, nausea, vomiting, chest pain, shortness of breath, abdominal pain, edema, vision changes, numbness or tingling. PMH: alcohol abuse, cirrhosis, ascites, hepatic encephalopathy, esophageal varices, Deborah-Diggs tear and anemia PSH: multiple endoscopies Med: Patient admits not taking these medications for past month: Lactulose 20g solution at night, pantoprazole 40mg daily All: NKDA Social: Still drinks 2-3 beers(16-24oz) per day, lives with , currently unemployed, denies illicit drug use, denies smoking Objective - Vital Signs/Intake and Output Vital Signs (last 24 hours): Temp Pulse Resp BP Pulse Ox 98.9 F 89 20 116/79 96 05/27/18 23:38 05/27/18 23:38 05/27/18 23:38 05/27/18 23:38 05/27/18 23:38 Intake and Output: 05/28/18 05/28/18 06:59 18:59 Intake Total 1500 Balance 1500 - Medications Medications: Current Medications Lactulose (Enulose) 20 gm PO HS [facility] Last Admin: 05/27/18 22:01 Dose: Not Given Lorazepam (Ativan) 1 mg IVP Q4H PRN PRN Reason: Symptoms of alcohol withdrawl Lorazepam (Ativan) 2 mg PO Q6H [facility] PRN Reason: Taper Stop: 05/31/18 15:59 Last Admin: 05/28/18 03:59 Dose: 2 mg Pantoprazole Sodium (Protonix Inj) 40 mg IVP DAILY [facility] Trazodone HCl (Desyrel) 50 mg PO [facility] Last Admin: 05/27/18 22:00 Dose: 50 mg - Labs Labs: 05/27/18 11:00 05/27/18 11:00 PT 17.3 SECONDS (9.7-12.2) H 05/27/18 11:00 INR 1.6 05/27/18 11:00 APTT 44 SECONDS (21-34) H 05/27/18 11:00 - Constitutional Appears: Non-toxic, No Acute Distress - Head Exam Head Exam: ATRAUMATIC, NORMOCEPHALIC - Eye Exam Eye Exam: EOMI, PERRL, Scleral icterus Pupil Exam: NORMAL ACCOMODATION, PERRL - ENT Exam ENT Exam: Mucous Membranes Moist - Neck Exam Neck Exam: absent: Lymphadenopathy - Respiratory Exam Respiratory Exam: Clear to Ausculation Bilateral, NORMAL BREATHING PATTERN. absent: Accessory Muscle Use, Rales, Rhonchi, Wheezes, Respiratory Distress - Cardiovascular Exam Cardiovascular Exam: REGULAR RHYTHM, +S1, +S2 - GI/Abdominal Exam GI & Abdominal Exam: Distended, Soft. absent: Firm, Guarding, Rigid, Tenderness Additional comments: + fluid wave shift, dullness to percussion - Extremities Exam Extremities Exam: absent: Calf Tenderness, Pedal Edema - Neurological Exam Neurological Exam: Alert, Awake, Oriented x3 - Psychiatric Exam Psychiatric exam: Normal Affect, Normal Mood - Skin Skin Exam: Dry, Warm Assessment and Plan - Assessment and Plan (Free Text) Plan: Decompensated Alcoholic Liver Cirrhosis GI consulted, Dr. Martel - help appreciated * Ordered US guided Paracentesis, check Cell Count w/diff, Cytology and Albumin * Low sodium diet as tolerated * Continue with diuretic therapy, monitor electrolytes * H/H stable, continue to monitor, avoid over-transfusion of PRBC products * Patient will require diagnostic/therapeutic paracentesis, though will likely require platelet transfusion prior given significant thrombocytopenia. Follow up hematology recommendations. * Continue with lactulose for HE prevention * Monitor for signs of ETOH withdrawal * Obtain abdominal US, AFP * Overall prognosis for patient is quite poor, not a transplant candidate due to ongoing ETOH abuse. IR consulted, Dr. Joiner * Platelets need to be transfused for possible paracentesis procedure on . Abd Obstruction Series 05/27/18: * Left apical bulla. Left parahilar scar. Left-sided volume loss. Normal abdominal bowel gas pattern. Abd Ultrasound 05/27/18: * Cirrhosis of liver and moderate ascites. Hepatosplenomegaly. Medications * Furodemide 20 mg daily * Spironolactone 50 mg daily * Lactulose 20mg PO BID - to prevent hepatic encephalopathy * Lasix 20mg PO daily Pancytopenia Hematology consulted, Dr. Chahal secondary to alcohol abuse WBC 2.6 Platelet 25 Platelet transfusion Anemia Hematology consulted, Dr. Chahal secondary to alcohol abuse H/H (05/28/18): 7.5/24.4 Continue to monitor Alcohol abuse Psych consulted, Dr. Villarreal Alcohol upon admission: 209 UDS negative Alcohol cessation urged Monitor for symptoms of withdrawal Medications: * Ativan 2mg PO q8h * Ativan 1mg IVP q4h prn * Banana Bag @80mL/hr Prophylactic measure Protonix 40mg IVP daily Trazodone 50mg PO HS All medical management per Dr. Kendrick Anderson Yoni PGY2
[2018-05-28 07:27] LABS: BASO % 1.1 % (0.0-2.0); EOS % 1.4 % (0.0-4.0); LYMPH % 14.9 % (20.0-40.0); MEAN CELL VOLUME 79.6 fL (80.0-94.0); MEAN CORPUSCULAR HGB CONC 31.4 g/dL (33.0-37.0); MEAN PLATELET VOLUME 8.5 fL (7.2-11.7); NEUT % 71.6 % (50.0-75.0); RBC 2.79 Mil/uL (4.40-5.90)
[2018-05-28 07:32] LABS: ALB/GLOB RATIO 0.7 (1.0-2.1); ALBUMIN 2.8 g/dL (3.5-5.0); ALT/SGPT 40 U/L (21-72); AST/SGOT 132 U/L (17-59); BLOOD UREA NITROGEN 2 mg/dL (9-20); CALCIUM 7.2 mg/dl (8.6-10.4); GFR NON-AFRICAN AMERICAN > 60
--- NOTE | 2018-05-28 09:18 | CP.PCM.CON ---
<Safia Hernandez - Last Filed: 05/28/18 15:27> History of Present Illness - History of Present Illness History of Present Illness: Hem/Onc Consult Note: Dr. Chahal's Service 43 year old male with past medical history of alcohol abuse, cirrhosis, ascites , hepatic encephalopathy, esophageal varices, Deborah-Diggs tear and anemia presented to the ER for abdominal pain. Patient states his abdomen has been distended for many years, however per his abdomen has only been distended for the past 3 weeks. Per the patient has not been compliant with medications and continues to drink 2 cans of 16oz beers per day. Patient states the pain is located in the upper epigastric area. He denies chest pain, shortness of breath, difficulty breathing, nausea, vomiting, diarrhea, constipation, blood in stool or urine. Past Medical History: alcohol abuse, cirrhosis, ascites, hepatic encephalopathy , esophageal varices, Deborah-Diggs tear and anemia Past Surgical History: multiple endoscopies Medications: per the patient has not been taking these medications for about 2 months: Lactulose 20g solution at night, pantoprazole 40mg daily Allergies: NKDA Social History: Drinks 2 beers per day (16oz) since the age of 16, lives with , currently unemployed, denies illicit drug use, denies smoking Review of Systems - Constitutional Constitutional: absent: Chills, Fever - Cardiovascular Cardiovascular: absent: Chest Pain, Dyspnea, Leg Edema, Palpitations - Respiratory Respiratory: absent: Cough, Dyspnea - Gastrointestinal Gastrointestinal: Abdominal Pain. absent: Constipation, Diarrhea, Nausea, Vomiting - Genitourinary Genitourinary: absent: Dysuria - Integumentary Integumentary: absent: Swelling - Neurological Neurological: Tremor. absent: Dizziness Past Patient History - Infectious Disease Hx of Infectious Diseases: None - Past Medical History & Family History Past Medical History?: Yes - Past Social History Smoking Status: Never Smoked - CARDIAC Hx Hypertension: Yes (PORTAL) - PULMONARY Hx Respiratory Disorders: No - NEUROLOGICAL Hx Seizures: Yes - HEENT Hx HEENT Problems: No - RENAL Hx Chronic Kidney Disease: No - ENDOCRINE/METABOLIC Hx Endocrine Disorders: No - HEMATOLOGICAL/ONCOLOGICAL Hx Anemia: Yes - INTEGUMENTARY Hx Dermatological Problems: No - MUSCULOSKELETAL/RHEUMATOLOGICAL Hx Fractures: No - GASTROINTESTINAL Hx Gastritis: Yes (+ H. PYLORII) - GENITOURINARY/GYNECOLOGICAL Hx Genitourinary Disorders: No - PSYCHIATRIC Hx Substance Use: No - SURGICAL HISTORY Hx Surgeries: Yes Other/Comment: Endoscopy - ANESTHESIA Hx Anesthesia: Yes Hx Anesthesia Reactions: No Meds Allergies/Adverse Reactions: Allergies Allergy/AdvReac Type Severity Reaction Status Date / Time No Known Allergies Allergy Verified 07/16/17 09:42 - Medications Medications: Current Medications Furosemide (Lasix) 20 mg PO DAILY [facility] Lactulose (Enulose) 20 gm PO BID [facility] Lorazepam (Ativan) 1 mg IVP Q4H PRN PRN Reason: Symptoms of alcohol withdrawl Lorazepam (Ativan) 2 mg PO Q6H [facility] PRN Reason: Taper Stop: 05/31/18 15:59 Last Admin: 05/28/18 03:59 Dose: 2 mg Pantoprazole Sodium (Protonix Inj) 40 mg IVP DAILY [facility] Spironolactone (Aldactone) 50 mg PO DAILY [facility] Trazodone HCl (Desyrel) 50 mg PO HS [facility] Last Admin: 05/27/18 22:00 Dose: 50 mg Physical Exam - Constitutional Appears: No Acute Distress, Older Than Stated Age, Cachectic - Head Exam Head Exam: ATRAUMATIC, NORMAL INSPECTION - Eye Exam Eye Exam: EOMI, Normal appearance, PERRL. absent: Scleral icterus Pupil Exam: NORMAL ACCOMODATION - ENT Exam ENT Exam: Mucous Membranes Moist - Respiratory Exam Respiratory Exam: Clear to Auscultation Bilateral, NORMAL BREATHING PATTERN - Cardiovascular Exam Cardiovascular Exam: Tachycardia, REGULAR RHYTHM, +S1, +S2 - GI/Abdominal Exam GI & Abdominal Exam: Distended, Firm, Normal Bowel Sounds. absent: Soft, Tenderness - Extremities Exam Extremities exam: Positive for: normal inspection. Negative for: pedal edema, tenderness - Neurological Exam Neurological exam: Alert, Oriented x3 Additional comments: Tremor: negative - Expanded Neurological Exam Expanded Cerebellar Function: Finger to Nose: Abnormal Left, Abnormal Right (patient had difficulty completing task ) - Psychiatric Exam Psychiatric exam: Flat Affect - Skin Skin Exam: Normal Color Results - Vital Signs Recent Vital Signs: Last Vital Signs Temp 98.4 F 05/28/18 08:30 Pulse 100 H 05/28/18 08:30 Resp 20 05/28/18 08:30 BP 116/79 05/28/18 08:30 Pulse Ox 97 05/28/18 08:30 - Labs Result Diagrams: 05/28/18 14:08 05/28/18 06:57 Labs: Laboratory Results - last 24 hr 05/27/18 05/27/18 05/27/18 11:00 11:00 11:00 WBC 2.2 L RBC 2.98 L Hgb 7.5 L Hct 23.7 L MCV 79.5 L D MCH 25.2 L MCHC 31.7 L RDW 18.2 H Plt Count 20 L* D MPV 8.5 Neut % (Auto) 69.0 Lymph % (Auto) 17.2 L Hale % (Auto) 10.4 H Eos % (Auto) 1.4 Baso % (Auto) 2.0 Neut # (Auto) 1.6 L Lymph # (Auto) 0.4 L Hale # (Auto) 0.2 Eos # (Auto) 0.0 Baso # (Auto) 0.0 Differential Comment PT 17.3 H INR 1.6 APTT 44 H Sodium 141 Potassium 3.7 Chloride 104 Carbon Dioxide 21 L Anion Gap 19 BUN 2 L Creatinine 0.6 L Est GFR ( Amer) > 60 Est GFR (Non-Af Amer) > 60 Random Glucose 102 Calcium 7.7 L Phosphorus Magnesium Total Bilirubin 3.3 H AST 196 H D ALT 42 Alkaline Phosphatase 192 H Ammonia Troponin I < 0.0120 NT-Pro-B Natriuret Pep 78.4 Total Protein 8.3 Albumin 3.3 L Globulin 5.0 H Albumin/Globulin Ratio 0.7 L Lipase 347 H Urine Color Urine Clarity Urine pH Ur Specific [place] Urine Protein Urine Glucose (UA) Urine Ketones Urine Blood Urine Nitrate Urine Bilirubin Urine Urobilinogen Ur Leukocyte Esterase Urine WBC (Auto) Urine Opiates Screen Urine Methadone Screen Ur Barbiturates Screen Ur Phencyclidine Scrn Ur Amphetamines Screen U Benzodiazepines Scrn U Oth Cocaine Metabols U Cannabinoids Screen Alcohol, Quantitative 209 H 05/27/18 05/27/18 05/27/18 11:00 12:32 12:32 WBC RBC Hgb Hct MCV MCH MCHC RDW Plt Count MPV Neut % (Auto) Lymph % (Auto) Hale % (Auto) Eos % (Auto) Baso % (Auto) Neut # (Auto) Lymph # (Auto) Hale # (Auto) Eos # (Auto) Baso # (Auto) Differential Comment PT INR APTT Sodium Potassium Chloride Carbon Dioxide Anion Gap BUN Creatinine Est GFR ( Amer) Est GFR (Non-Af Amer) Random Glucose Calcium Phosphorus Magnesium Total Bilirubin AST ALT Alkaline Phosphatase Ammonia 27 Troponin I NT-Pro-B Natriuret Pep Total Protein Albumin Globulin Albumin/Globulin Ratio Lipase Urine Color Yellow Urine Clarity Clear Urine pH 7.0 Ur Specific [place] 1.002 L Urine Protein Negative Urine Glucose (UA) Normal Urine Ketones Negative Urine Blood Negative Urine Nitrate Negative Urine Bilirubin Negative Urine Urobilinogen Normal Ur Leukocyte Esterase Neg Urine WBC (Auto) < 1 Urine Opiates Screen Negative Urine Methadone Screen Negative Ur Barbiturates Screen Negative Ur Phencyclidine Scrn Negative Ur Amphetamines Screen Negative U Benzodiazepines Scrn Negative U Oth Cocaine Metabols Negative U Cannabinoids Screen Negative Alcohol, Quantitative 05/27/18 05/28/18 05/28/18 17:00 06:57 06:57 WBC 2.0 L* RBC 2.79 L Hgb 7.0 L Hct 22.2 L MCV 79.6 L MCH 25.0 L MCHC 31.4 L RDW 18.5 H Plt Count 20 L* MPV 8.5 Neut % (Auto) 71.6 Lymph % (Auto) 14.9 L Hale % (Auto) 11.0 H Eos % (Auto) 1.4 Baso % (Auto) 1.1 Neut # (Auto) 1.4 L Lymph # (Auto) 0.3 L Hale # (Auto) 0.2 Eos # (Auto) 0.0 Baso # (Auto) 0.0 Differential Comment PT INR APTT Sodium 138 Potassium 3.5 L Chloride 109 H Carbon Dioxide 20 L Anion Gap 13 BUN 2 L Creatinine 0.5 L Est GFR ( Amer) > 60 Est GFR (Non-Af Amer) > 60 Random Glucose 102 Calcium 7.2 L Phosphorus 3.0 Magnesium 1.4 L Total Bilirubin 4.1 H AST 132 H D ALT 40 Alkaline Phosphatase 162 H Ammonia Troponin I NT-Pro-B Natriuret Pep Total Protein 7.1 Albumin 2.8 L Globulin 4.3 H Albumin/Globulin Ratio 0.7 L Lipase Urine Color Urine Clarity Urine pH Ur Specific [place] Urine Protein Urine Glucose (UA) Urine Ketones Urine Blood Urine Nitrate Urine Bilirubin Urine Urobilinogen Ur Leukocyte Esterase Urine WBC (Auto) Urine Opiates Screen Urine Methadone Screen Ur Barbiturates Screen Ur Phencyclidine Scrn Ur Amphetamines Screen U Benzodiazepines Scrn U Oth Cocaine Metabols U Cannabinoids Screen Alcohol, Quantitative Assessment & Plan - Assessment and Plan (Free Text) Assessment: Pancytopenia secondary to ETOh abuse Platelet (05/28/18) 25 Platelet transfusion at 1am - f/u CBC and manual platelet count Possible paracentesis 05/29/18 Anemia secondary to Etoh abuse H/H (05/28/18): 7.5/24.4 Continue to monitor Case discussed with Dr. Tirso Hernandez PGY-2 <Jeff Chahal - Last Filed: 05/29/18 20:40> Meds - Medications Medications: Current Medications Furosemide (Lasix) 20 mg PO DAILY [facility] Last Admin: 05/29/18 09:50 Dose: 20 mg Haloperidol Lactate (Haldol) 5 mg IM Q6H PRN PRN Reason: severe agitation Last Admin: 05/29/18 19:47 Dose: 5 mg Lactulose (Enulose) 20 gm PO BID [facility] Last Admin: 05/29/18 17:14 Dose: 20 gm Lorazepam (Ativan) 2 mg PO Q12H [facility] PRN Reason: Taper Stop: 05/31/18 15:59 Last Admin: 05/29/18 16:00 Dose: 2 mg Lorazepam (Ativan) 1 mg IVP Q2H PRN PRN Reason: Symptoms of alcohol withdrawl Pantoprazole Sodium (Protonix Inj) 40 mg IVP DAILY [facility] Last Admin: 05/29/18 09:50 Dose: 40 mg Spironolactone (Aldactone) 50 mg PO DAILY [facility] Last Admin: 05/29/18 09:50 Dose: 50 mg Trazodone HCl (Desyrel) 50 mg PO HS [facility] Last Admin: 05/28/18 21:33 Dose: 50 mg Results - Vital Signs Recent Vital Signs: Last Vital Signs Temp 97.8 F 05/29/18 16:11 Pulse 89 05/29/18 16:11 Resp 20 05/29/18 16:11 BP 130/87 05/29/18 16:11 Pulse Ox 99 05/29/18 15:58 - Labs Result Diagrams: 05/29/18 08:05 05/29/18 08:05 Labs: Laboratory Results - last 24 hr 05/28/18 05/29/18 05/29/18 11:06 08:05 08:05 WBC 2.9 L RBC 2.89 L Hgb 7.3 L Hct 23.6 L MCV 81.6 MCH 25.4 L MCHC 31.1 L RDW 19.2 H Plt Count 44 L Manual Plt Count 40 L MPV 8.5 Sodium Potassium Chloride Carbon Dioxide Anion Gap BUN Creatinine Est GFR ( Amer) Est GFR (Non-Af Amer) Random Glucose Calcium Total Bilirubin AST ALT Alkaline Phosphatase Total Protein Albumin Globulin Albumin/Globulin Ratio Alpha Fetoprotein 5.1 Blood Type O POSITIVE Antibody Screen Negative 05/29/18 05/29/18 08:05 17:34 WBC RBC Hgb Hct MCV MCH MCHC RDW Plt Count Manual Plt Count 70 L D MPV Sodium 138 Potassium 4.2 Chloride 108 H Carbon Dioxide 20 L Anion Gap 15 BUN 3 L Creatinine 0.5 L Est GFR ( Amer) > 60 Est GFR (Non-Af Amer) > 60 Random Glucose 117 H Calcium 8.2 L Total Bilirubin 5.7 H AST 132 H ALT 38 Alkaline Phosphatase 172 H Total Protein 8.0 Albumin 3.3 L Globulin 4.7 H Albumin/Globulin Ratio 0.7 L Alpha Fetoprotein Blood Type Antibody Screen Assessment & Plan - Assessment and Plan (Free Text) Assessment: Pt seen and examined, agree with Dr. Hernandez's consult. 43 year old male with a history of alcoholic cirrhosis admitted with GI bleeding with pancytopenia. Likely alcohol induced bone marrow suppression, pHTN with splenic sequestration. Evaluate iron, b12, folate stores. Transfusion support PRN for paracentesis. Thank you for this interesting consult.
[2018-05-28] MEDS ORDERED: Potassium Chloride 20 mEq ER Tab PO ONE (11:45)
--- NOTE | 2018-05-28 12:14 | PCM.PSYCH ---
Initial Psychiatric Evaluation - Initial Psychiatric Evaluation Type of Admission: Voluntary Chief Complaint (in patient's own words): "Not well" History of Present Illness and Precipitating Events: Pt is seen, chart reviewed, case discussed with staff. Pt is a 43 y/o male who presented to the ED for decompensating alcoholic cirrhosis. Consult was requested for his alcohol withdrawal Pt lives in with his , mother, and 2 children ages 11 and 3; pt knows that he is in and can report the year but is not oriented to the day of the week. Pt has a hx of alcohol abuse for the past 20 years; pt drinks 6-7 16 oz cans of beer/day at least; pt reports that yesterday he drank 2 beers and came to the ER because of "water" in stomach. Pt denies smoking cigarettes or drug use. Pt denies attending rehab or detox. Pt describes and displays significant withdrawal sxs. Past medical hx denied by pt but per past reports is positive for anemia, gastritis, GI ulcer, HTN, and seizures. Psychiatric hx denied. Family hx includes mother with diabetes. Current Medications: Active Medications Generic Name Dose Route Start Last Admin Trade Name Freq PRN Reason Stop Dose Admin Furosemide 20 mg 05/28/18 10:00 05/28/18 09:59 Lasix PO 20 mg DAILY [facility] Administration Magnesium Sulfate/Dextrose 1 gm in 100 mls @ 300 mls/hr 05/28/18 12:15 Magnesium Sulfate 1 Gm/100 Ml D5w IVPB 05/28/18 13:04 Q30M [facility] Lactulose 20 gm 05/28/18 10:00 05/28/18 09:58 Enulose PO 20 gm BID [facility] Administration Lorazepam 1 mg 05/27/18 15:47 Ativan IVP Q4H PRN Symptoms of alcohol withdrawl Lorazepam 2 mg 05/27/18 16:00 05/28/18 09:58 Ativan PO 05/31/18 15:59 2 mg Q6H [facility] Administration Taper Pantoprazole Sodium 40 mg 05/28/18 10:00 05/28/18 09:59 Protonix Inj IVP 40 mg DAILY [facility] Administration Spironolactone 50 mg 05/28/18 10:00 05/28/18 09:58 Aldactone PO 50 mg DAILY [facility] Administration Trazodone HCl 50 mg 05/27/18 22:00 05/27/18 22:00 Desyrel PO 50 mg HS [facility] Administration Past Psychiatric History - Past Psychiatric History Previous Treatment History: None Pertinent Medical Hx (Current Medical&Sleep Prob, Allergies): Allergies Allergy/AdvReac Type Severity Reaction Status Date / Time No Known Allergies Allergy Verified 07/16/17 09:42 Folic Acid 1 mg PO DAILY 04/25/17 Hydroxyzine Pamoate [Vistaril] 25 mg PO DAILY 04/25/17 Pantoprazole Sodium [Protonix] 40 mg PO DAILY 04/25/17 Multivitamin [Multivitamins] 1 each PO DAILY #30 capsule 04/30/17 Thiamine [Vitamin B1 Tab] 100 mg PO DAILY #30 tab 04/30/17 Ranitidine HCl 150 mg PO BID 06/08/17 Cefpodoxime [Vantin] 200 mg PO Q12 #6 tab 01/08/18 Lactulose [Enulose] 20 gm PO HS #30 udc 01/08/18 Pantoprazole [Protonix EC Tab] 40 mg PO DAILY #30 ect 01/08/18 Review of Systems - Psychiatric Psychiatric: Abnormal Sleep Pattern, Anxiety, Depression, Difficulty Concentrating. absent: Homicidal Ideation, Paranoia, Suicidal Ideation Mental Status Examination - Personal Presentation Personal Presentation: Looks older than stated age - Affect Affect: Blunted - Motor Activity Motor Activity: Calm - Reliability in Providing Information Reliability in Providing Information: Poor, due to cognitve impairment - Speech Speech: Disorganized - Mood Mood: Depressed, Anxious - Formal Thought Process Formal Thought Process: No Impairment - Cognitive Functions Orientation: Person, Place, Situation Sensorium: Drowsy Attention/Concentration: Easily distracted Abstract Thinking: Eugene Estimate of Intelligence: Below average Judgement: Imparied, as evidence by: Poor judgement Memory: Recent impaired, as evidence by: Inability to recall events of the day, Remote impaired as evidenced by: Inability to recall sig life events - Risk Risk: Seizure, Withdrawal, Diminished functioning - Strength & Assets Inventory Strength & Assets Inventory: Cooperative - Limitations Limitations: Other DSM 5 DX - DSM 5 DSM 5 Diagnosis: Alcohol withdrawal with complication Alcohol use d/o- severe 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 Supportive therapy and psychoeducation DC for abstinence Refer to rehab 34 min
[2018-05-28] MEDS: Magnesium Sulfate 1 gm in D5W 1 GM/100 ML BAG IVPB SCH ×2 (13:01→14:03)
[2018-05-28 14:14] LABS: HEMOGLOBIN 7.5 g/dL (12.0-18.0); MEAN CORPUSCULAR HEMOGLOBIN 25.2 pg (27.0-31.0); MEAN CORPUSCULAR HGB CONC 30.8 g/dL (33.0-37.0); MEAN PLATELET VOLUME 8.5 fL (7.2-11.7); RBC 2.99 Mil/uL (4.40-5.90); RED CELL DISTRIBUTION WIDTH 18.9 % (11.5-14.5); WHITE BLOOD COUNT 2.6 K/uL (4.8-10.8)
[2018-05-28 14:21] LABS: MEAN CELL VOLUME 81.6 fL (80.0-94.0)
[2018-05-28] MEDS ORDERED: Multivitamin (MVI) 10 ML, Thiamine 100 MG, Folic Acid 1 MG in Sodium Chloride 0.9% 1,00... IV ONE (14:45)
[2018-05-28] MEDS ORDERED: Potassium Chloride 20 mEq ER Tab PO STA (19:41)
--- NOTE | 2018-05-28 20:03 | CP.PCM.PN ---
Subjective - Date & Time of Evaluation Date of Evaluation: 05/28/18 Time of Evaluation: 08:15 - Subjective Subjective: Patient was brought in by for evaluation of worsening abdominal distention. Patient is very quiet and does not want to speak/answer questions. is at bedside that provided the large majority of history. Patient has past medical history of alcohol abuse, cirrhosis, ascites, hepatic encephalopathy, esophageal varices, Deborah-Diggs tear and anemia. His abdomen has been getting progressively more distended over the past weeks to month. He is still drinking every day and has stopped taking all of his medications. Patient denies any pain and did not want to come to the hospital. He states he has never had a paracentesis. He reports colorless liquid stools. Denies fevers , chills, nausea, vomiting, chest pain, shortness of breath, abdominal pain, edema, vision changes, numbness or tingling. PMH: alcohol abuse, cirrhosis, ascites, hepatic encephalopathy, esophageal varices, Deborah-Diggs tear and anemia PSH: multiple endoscopies Med: Patient admits not taking these medications for past month: Lactulose 20g solution at night, pantoprazole 40mg daily All: NKDA Social: Still drinks 2-3 beers(16-24oz) per day, lives with , currently unemployed, denies illicit drug use, denies smoking Objective - Vital Signs/Intake and Output Vital Signs (last 24 hours): Temp Pulse Resp BP Pulse Ox 98.9 F 109 H 20 120/74 95 05/28/18 16:00 05/28/18 16:00 05/28/18 16:05/28/18 16:00 05/28/18 16:00 Intake and Output: 05/28/1818 18:59 06:59 Intake Total 560 Balance 560 - Medications Medications: Current Medications Furosemide (Lasix) 20 mg PO DAILY [facility] Last Admin: 05/28/18 09:59 Dose: 20 mg Multivitamins/Vitamin C 10 ml/Thiamine HCl 100 mg/ Folic Acid 1 mg/ Sodium Chloride 1,011.2 mls @ 80 mls/hr IV .[id number] ONE Stop: 05/29/18 03:23 Last Admin: 05/28/18 15:04 Dose: 80 mls/hr Lactulose (Enulose) 20 gm PO BID [facility] Last Admin: 05/28/18 17:23 Dose: 20 gm Lorazepam (Ativan) 1 mg IVP Q4H PRN PRN Reason: Symptoms of alcohol withdrawl Lorazepam (Ativan) 2 mg PO Q8H [facility] PRN Reason: Taper Stop: 05/31/18 15:59 Last Admin: 05/28/18 16:13 Dose: 2 mg Pantoprazole Sodium (Protonix Inj) 40 mg IVP DAILY [facility] Last Admin: 05/28/18 09:59 Dose: 40 mg Spironolactone (Aldactone) 50 mg PO DAILY [facility] Last Admin: 05/28/18 09:58 Dose: 50 mg Trazodone HCl (Desyrel) 50 mg PO HS [facility] Last Admin: 05/27/18 22:00 Dose: 50 mg - Labs Labs: 05/28/18 14:08 05/28/18 06:57 PT 17.3 SECONDS (9.7-12.2) H 05/27/18 11:00 INR 1.6 05/27/18 11:00 APTT 44 SECONDS (21-34) H 05/27/18 11:00 - Constitutional Appears: Well - Head Exam Head Exam: ATRAUMATIC, NORMAL INSPECTION, NORMOCEPHALIC - Eye Exam Eye Exam: EOMI, Normal appearance, PERRL Pupil Exam: NORMAL ACCOMODATION, PERRL - ENT Exam ENT Exam: Mucous Membranes Moist, Normal Exam - Neck Exam Neck Exam: Full ROM, Normal Inspection. absent: Lymphadenopathy - Respiratory Exam Respiratory Exam: Decreased Breath Sounds - Cardiovascular Exam Cardiovascular Exam: REGULAR RHYTHM, +S1, +S2 - GI/Abdominal Exam GI & Abdominal Exam: Soft, Diminished Bowel Sounds - Rectal Exam Rectal Exam: Deferred Assessment and Plan - Assessment and Plan (Free Text) Plan: Decompensated Alcoholic Liver Cirrhosis GI consulted, Dr. Martel - help appreciated * Ordered US guided Paracentesis, check Cell Count w/diff, Cytology and Albumin * Low sodium diet as tolerated * Continue with diuretic therapy, monitor electrolytes * H/H stable, continue to monitor, avoid over-transfusion of PRBC products * Patient will require diagnostic/therapeutic paracentesis, though will likely require platelet transfusion prior given significant thrombocytopenia. Follow up hematology recommendations. * Continue with lactulose for HE prevention * Monitor for signs of ETOH withdrawal * Obtain abdominal US, AFP * Overall prognosis for patient is quite poor, not a transplant candidate due to ongoing ETOH abuse. IR consulted, Dr. Joiner * Platelets need to be transfused for possible paracentesis procedure on . Abd Obstruction Series 05/27/18: * Left apical bulla. Left parahilar scar. Left-sided volume loss. Normal abdominal bowel gas pattern. Abd Ultrasound 05/27/18: * Cirrhosis of liver and moderate ascites. Hepatosplenomegaly. Medications * Furodemide 20 mg daily * Spironolactone 50 mg daily * Lactulose 20mg PO BID - to prevent hepatic encephalopathy * Lasix 20mg PO daily Pancytopenia Hematology consulted, Dr. Chahal secondary to alcohol abuse WBC 2.6 Platelet 25 Platelet transfusion Anemia Hematology consulted, Dr. Chahal secondary to alcohol abuse H/H (05/28/18): 7.5/24.4 Continue to monitor Alcohol abuse Psych consulted, Dr. Villarreal Alcohol upon admission: 209 UDS negative Alcohol cessation urged Monitor for symptoms of withdrawal Medications: * Ativan 2mg PO q8h * Ativan 1mg IVP q4h prn * Banana Bag @80mL/hr Prophylactic measure Protonix 40mg IVP daily Trazodone 50mg PO HS
[2018-05-29 02:31] VITALS: RESP 20
--- NOTE | 2018-05-29 07:30 | CP.PCM.PN ---
Subjective - Date & Time of Evaluation Date of Evaluation: 05/29/18 Time of Evaluation: 07:52 - Subjective Subjective: PGY 3 Med Note- Dr. Henny Leroy's service Patient seen and examined in no acute distress. Patient states that he is to have a procedure performed today. He is tolerating a diet. Patient states that he is aware that he needs to stop drinking. He denies subjective fevers or chills, nausea or vomiting at this time. Objective - Vital Signs/Intake and Output Vital Signs (last 24 hours): Temp Pulse Resp BP Pulse Ox 98.8 F 86 20 121/84 97 05/29/18 02:32 05/29/18 02:32 05/29/18 02:32 05/29/18 02:32 05/29/18 00:00 Intake and Output: 05/29/18 05/29/18 06:59 18:59 Intake Total 951 Balance 951 - Medications Medications: Current Medications Furosemide (Lasix) 20 mg PO DAILY [facility] Last Admin: 05/28/18 09:59 Dose: 20 mg Lactulose (Enulose) 20 gm PO BID [facility] Last Admin: 05/28/18 17:23 Dose: 20 gm Lorazepam (Ativan) 1 mg IVP Q4H PRN PRN Reason: Symptoms of alcohol withdrawl Lorazepam (Ativan) 2 mg PO Q8H [facility] PRN Reason: Taper Stop: 05/31/18 15:59 Last Admin: 05/29/18 01:01 Dose: 2 mg Pantoprazole Sodium (Protonix Inj) 40 mg IVP DAILY [facility] Last Admin: 05/28/18 09:59 Dose: 40 mg Spironolactone (Aldactone) 50 mg PO DAILY [facility] Last Admin: 05/28/18 09:58 Dose: 50 mg Trazodone HCl (Desyrel) 50 mg PO HS [facility] Last Admin: 05/28/18 21:33 Dose: 50 mg - Labs Labs: 05/28/18 14:08 05/28/18 06:57 PT 17.3 SECONDS (9.7-12.2) H 05/27/18 11:00 INR 1.6 05/27/18 11:00 APTT 44 SECONDS (21-34) H 05/27/18 11:00 - Constitutional Appears: Non-toxic, No Acute Distress - Head Exam Head Exam: ATRAUMATIC, NORMAL INSPECTION - Eye Exam Eye Exam: EOMI, Normal appearance Pupil Exam: NORMAL ACCOMODATION - ENT Exam ENT Exam: Mucous Membranes Moist - Neck Exam Neck Exam: Full ROM - Respiratory Exam Respiratory Exam: NORMAL BREATHING PATTERN - Cardiovascular Exam Cardiovascular Exam: +S1, +S2 - GI/Abdominal Exam GI & Abdominal Exam: Distended (mildly), Soft, Normal Bowel Sounds. absent: Guarding, Rigid, Tenderness Additional comments: fluid wave shift noted - Extremities Exam Extremities Exam: Full ROM, Normal Capillary Refill - Back Exam Back Exam: NORMAL INSPECTION - Neurological Exam Neurological Exam: Alert, Awake, Oriented x3 Neuro motor strength exam: Left Upper Extremity: 5, Right Upper Extremity: 5, Left Lower Extremity: 5, Right Lower Extremity: 5 - Psychiatric Exam Psychiatric exam: Normal Affect, Normal Mood - Skin Skin Exam: Dry, Warm Assessment and Plan - Assessment and Plan (Free Text) Assessment: Decompensated Alcoholic Liver Cirrhosis GI consulted, Dr. Martel - help appreciated * Ordered US guided Paracentesis, check Cell Count w/diff, Cytology and Albumin * Continue with diuretics-monitor electrolytes * Diagnostic/therapeutic paracentesis to follow pending stabilization of platelets. Morning level 44. Manual count 40. This is still too low for paracentesis to be performed. IR made recommendations for a platelet level of at least 80. * Continue with lactulose for HE prevention. Per GI, titrate to 3 BMs a day * Monitor for signs of ETOH withdrawal * 05/29/18 MELD Score of 12 F/U additional GI recommendations * 05/29/18 Child's Beckham Score of 9 * Overall prognosis for patient is poor. Patient is not a transplant candidate due to ongoing alcohol abuse. * F/U ammonia level IR consulted, Dr. Joiner * F/U Platelets. Morning level 44. Manual count 40. This is still too low for paracentesis to be performed. IR made recommendations for a platelet level of at least 80. Will transfuse 1 unit of platelets. Abdominal Ultrasound 05/27/18: * Cirrhosis of liver and moderate ascites. Hepatosplenomegaly. Medications * Spironolactone 50 mg daily * Lactulose 20mg PO BID - to prevent hepatic encephalopathy * Lasix 20mg PO daily Pancytopenia Hematology consulted, Dr. Chahal- F/U recommendations Likely secondary to alcohol abuse Platelet transfusion - F/U Alcohol abuse Psych consulted, Dr. Villarreal Alcohol upon admission: 209 UDS negative Alcohol cessation urged Monitor for symptoms of withdrawal On Ativan 2mg PO q8h and Ativan 1mg IVP q4h prn Prophylactic measure Protonix 40mg IVP daily Trazodone 50mg PO HS [facility] Discussed with attending. All medical management per Dr. Kendrick Leroy
[2018-05-29 08:12] LABS: HEMOGLOBIN 7.3 g/dL (12.0-18.0); MEAN CELL VOLUME 81.6 fL (80.0-94.0); MEAN CORPUSCULAR HEMOGLOBIN 25.4 pg (27.0-31.0); MEAN CORPUSCULAR HGB CONC 31.1 g/dL (33.0-37.0); MEAN PLATELET VOLUME 8.5 fL (7.2-11.7); RBC 2.89 Mil/uL (4.40-5.90); RED CELL DISTRIBUTION WIDTH 19.2 % (11.5-14.5); WHITE BLOOD COUNT 2.9 K/uL (4.8-10.8)
[2018-05-29 08:26] LABS: ALB/GLOB RATIO 0.7 (1.0-2.1); ALBUMIN 3.3 g/dL (3.5-5.0); ALT/SGPT 38 U/L (21-72); AST/SGOT 132 U/L (17-59); BLOOD UREA NITROGEN 3 mg/dL (9-20); CALCIUM 8.2 mg/dl (8.6-10.4); GFR NON-AFRICAN AMERICAN > 60
--- NOTE | 2018-05-29 16:08 | PCM.PYCHPN ---
Psychiatric Progress Note - Psychiatric Progress Note Patient seen today, length of contact: 15 minutes Patient Chief Complaint: "Not well" Problems Identified/Issues Discussed: Pt is seen, chart reviewed, case discussed with staff. Pt is compliant with medications and reports no side-effects. Symptoms are improving but needs more time to stabilize. Pt is still not oriented to date or time; pt was disorganized and believed that his was visiting even though she was not. After care discussed. Medication Change: No Medical Record Reviewed: Yes Mental Status Examination - Cognitive Function Orientation: Person, Place, Situation Memory: Impaired Attention: Poor Concentration: Poor Association: Loose Fund of Knowledge: Poor - Mood Mood: Depressed, Anxious - Affect Affect: Blunted - Formal Thought Process Formal Thought Process: No Impairment - Suicidal Ideation Suicidal Ideation: No - Homicidal Ideation Homicidal Ideation: No Goal/Treatment Plan - Goal/Treatment Plan Need for Continued Stay: Remain at risks for inpatient hospitalization, Severe functional impairment Progress Toward Problem(s) and Goals/Treatment Plan: Taper with Ativan As needed medications, lactulose for encephalitis, Protonix for gastritis All risks, benefits and alternatives of the meds discussed, and the pt agreed and understood. Supportive therapy and psychoeducation DC for abstinence Refer to rehab 15 min
--- NOTE | 2018-05-29 21:06 | CP.PCM.PN ---
Subjective - Date & Time of Evaluation Date of Evaluation: 05/29/18 Time of Evaluation: 08:00 - Subjective Subjective: clinically same Objective - Vital Signs/Intake and Output Vital Signs (last 24 hours): Temp Pulse Resp BP Pulse Ox 97.8 F 89 20 130/87 99 05/29/18 16:11 05/29/18 16:11 05/29/18 16:11 05/29/18 16:11 05/29/18 15:58 Intake and Output: 05/29/18 05/30/18 18:59 06:59 Intake Total 1686 Balance 1686 - Medications Medications: Current Medications Furosemide (Lasix) 20 mg PO DAILY [facility] Last Admin: 05/29/18 09:50 Dose: 20 mg Haloperidol Lactate (Haldol) 5 mg IM Q6H PRN PRN Reason: severe agitation Last Admin: 05/29/18 19:47 Dose: 5 mg Lactulose (Enulose) 20 gm PO BID [facility] Last Admin: 05/29/18 17:14 Dose: 20 gm Lorazepam (Ativan) 2 mg PO Q12H [facility] PRN Reason: Taper Stop: 05/31/18 15:59 Last Admin: 05/29/18 16:00 Dose: 2 mg Lorazepam (Ativan) 1 mg IVP Q2H PRN PRN Reason: Symptoms of alcohol withdrawl Pantoprazole Sodium (Protonix Inj) 40 mg IVP DAILY [facility] Last Admin: 05/29/18 09:50 Dose: 40 mg Spironolactone (Aldactone) 50 mg PO DAILY [facility] Last Admin: 05/29/18 09:50 Dose: 50 mg Trazodone HCl (Desyrel) 50 mg PO [facility] Last Admin: 05/28/18 21:33 Dose: 50 mg - Labs Labs: 05/29/18 08:05 05/29/18 08:05 PT 17.3 SECONDS (9.7-12.2) H 05/27/18 11:00 INR 1.6 05/27/18 11:00 APTT 44 SECONDS (21-34) H 05/27/18 11:00 - Constitutional Appears: Well - Head Exam Head Exam: ATRAUMATIC, NORMAL INSPECTION, NORMOCEPHALIC - Eye Exam Eye Exam: EOMI, Normal appearance, PERRL Pupil Exam: NORMAL ACCOMODATION, PERRL - ENT Exam ENT Exam: Mucous Membranes Moist, Normal Exam - Neck Exam Neck Exam: Full ROM, Normal Inspection. absent: Lymphadenopathy - Respiratory Exam Respiratory Exam: Decreased Breath Sounds - Cardiovascular Exam Cardiovascular Exam: REGULAR RHYTHM, +S1, +S2 - GI/Abdominal Exam GI & Abdominal Exam: Soft, Diminished Bowel Sounds - Rectal Exam Rectal Exam: Deferred Assessment and Plan (1) Ascites due to alcoholic cirrhosis Status: Acute (2) Pancytopenia Status: Acute (3) Alcohol dependence Status: Chronic (4) Abdominal pain Status: Acute (5) Abdominal pain Status: Acute (6) Acute upper GI bleed Status: Acute (7) Alcohol abuse Status: Acute (8) Alcohol withdrawal Status: Acute (9) Alcoholic gastritis Status: Acute (10) Anemia Status: Acute (11) Anemia Status: Acute (12) Delirium Status: Acute (13) Delirium tremens Status: Acute (14) Dizziness Status: Acute (15) Endotracheally intubated Status: Acute (16) Esophageal varices Status: Acute (17) FUO (fever of unknown origin) Status: Acute (18) Fever Status: Acute (19) GI bleed Status: Acute (20) Gastrointestinal hemorrhage Status: Acute (21) Hematemesis Status: Acute (22) Hepatic encephalopathy Status: Acute (23) Hyperthermia Status: Acute (24) Liver mass Status: Acute (25) Nausea Status: Acute (26) Pharyngitis Status: Acute (27) Prophylactic measure Status: Acute (28) Respiratory failure requiring intubation Status: Acute (29) Upper gastrointestinal bleeding Status: Acute (30) Vomiting Status: Acute (31) Vomiting Status: Acute (32) Withdrawal symptoms, alcohol Status: Acute (33) Alcoholic hepatitis Status: Chronic (34) Liver cirrhosis, alcoholic Status: Chronic (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 Martel - help appreciated * Ordered US guided Paracentesis, check Cell Count w/diff, Cytology and Albumin * Continue with diuretics-monitor electrolytes * Diagnostic/therapeutic paracentesis to follow pending stabilization of platelets. Morning level 44. Manual count 40. This is still too low for paracentesis to be performed. IR made recommendations for a platelet level of at least 80. * Continue with lactulose for HE prevention. Per GI, titrate to 3 BMs a day * Monitor for signs of ETOH withdrawal * 05/29/18 MELD Score of 12 F/U additional GI recommendations * 05/29/18 Child's Beckham Score of 9 * Overall prognosis for patient is poor. Patient is not a transplant candidate due to ongoing alcohol abuse. * F/U ammonia level IR consulted, Dr. Joiner * F/U Platelets. Morning level 44. Manual count 40. This is still too low for paracentesis to be performed. IR made recommendations for a platelet level of at least 80. Will transfuse 1 unit of platelets. Abdominal Ultrasound 05/27/18: * Cirrhosis of liver and moderate ascites. Hepatosplenomegaly. Medications * Spironolactone 50 mg daily * Lactulose 20mg PO BID - to prevent hepatic encephalopathy * Lasix 20mg PO daily Pancytopenia Hematology consulted, Dr. Chahal- F/U recommendations Likely secondary to alcohol abuse Platelet transfusion - F/U Alcohol abuse Psych consulted, Dr. Villarreal Alcohol upon admission: 209 UDS negative Alcohol cessation urged Monitor for symptoms of withdrawal On Ativan 2mg PO q8h and Ativan 1mg IVP q4h prn Prophylactic measure Protonix 40mg IVP daily Trazodone 50mg PO HS [facility]
[2018-05-30 08:41] LABS: BASO % 1.2 % (0.0-2.0); EOS % 1.1 % (0.0-4.0); HEMOGLOBIN 7.5 g/dL (12.0-18.0); LYMPH # 0.4 K/uL (1.0-4.3); LYMPH % 9.8 % (20.0-40.0); MEAN CELL VOLUME 81.5 fL (80.0-94.0); MEAN CORPUSCULAR HEMOGLOBIN 25.2 pg (27.0-31.0); MEAN CORPUSCULAR HGB CONC 30.9 g/dL (33.0-37.0); MEAN PLATELET VOLUME 8.4 fL (7.2-11.7); MONO # 0.5 K/uL (0.0-0.8); MONO % 13.1 % (0.0-10.0); NEUT # 2.8 K/uL (1.8-7.0); NEUT % 74.8 % (50.0-75.0); NRBC % 0.1 % (0.0-2.0); PLATELET COUNT 61 K/uL (130-400); RBC 2.96 Mil/uL (4.40-5.90); RED CELL DISTRIBUTION WIDTH 19.3 % (11.5-14.5); WHITE BLOOD COUNT 3.7 K/uL (4.8-10.8)
[2018-05-30 10:11] LABS: ALB/GLOB RATIO 0.7 (1.0-2.1); ALBUMIN 3.4 g/dL (3.5-5.0); ALT/SGPT 36 U/L (21-72); AST/SGOT 131 U/L (17-59); BLOOD UREA NITROGEN 3 mg/dL (9-20); CALCIUM 8.7 mg/dl (8.6-10.4); GFR NON-AFRICAN AMERICAN > 60
[2018-05-30 11:38] LABS: ANISOCYTOSIS SLIGHT; BANDS 2 % (0-2); BASOPHIL 1 % (0-2); EOSINOPHIL 3 % (0-4); LYMPHOCYTE 8 % (20-40); MONOCYTE 17 % (0-10); NEUTROPHIL 69 % (50-75); PLATELET ESTIMATE DECREASED (NORMAL); TOTAL CELLS COUNTED 100
[2018-05-30 11:39] LABS: HYPOCHROMIC MODERATE; POLYCHROMIC SLIGHT; TARGET CELLS SLIGHT
--- NOTE | 2018-05-30 13:33 | CP.PCM.PN ---
Subjective - Date & Time of Evaluation Date of Evaluation: 05/30/18 Time of Evaluation: 07:40 - Subjective Subjective: clinically same Objective - Vital Signs/Intake and Output Vital Signs (last 24 hours): Temp Pulse Resp BP Pulse Ox 98.7 F 98 H 20 109/73 99 05/30/18 07:57 05/30/18 07:57 05/30/18 07:57 05/30/18 12:22 05/30/18 07:57 Intake and Output: 05/30/18 05/30/18 06:59 18:59 Intake Total 435 150 Balance 435 150 - Medications Medications: Current Medications Furosemide (Lasix) 20 mg PO DAILY [facility] Last Admin: 05/30/18 12:22 Dose: 20 mg Haloperidol Lactate (Haldol) 5 mg IM Q6H PRN PRN Reason: severe agitation Last Admin: 05/29/18 19:47 Dose: 5 mg Lactulose (Enulose) 20 gm PO BID [facility] Last Admin: 05/30/18 10:00 Dose: 20 gm Lorazepam (Ativan) 2 mg PO Q12H [facility] PRN Reason: Taper Stop: 05/31/18 15:59 Last Admin: 05/30/18 03:53 Dose: 2 mg Lorazepam (Ativan) 1 mg IVP Q2H PRN PRN Reason: Symptoms of alcohol withdrawl Lorazepam (Ativan) 2 mg PO ONCE ONE Stop: 05/31/18 09:01 Pantoprazole Sodium (Protonix Inj) 40 mg IVP DAILY [facility] Last Admin: 05/30/18 10:00 Dose: 40 mg Spironolactone (Aldactone) 50 mg PO DAILY [facility] Last Admin: 05/30/18 10:00 Dose: 50 mg Trazodone HCl (Desyrel) 50 mg PO [facility] Last Admin: 05/29/18 21:21 Dose: Not Given - Labs Labs: 05/30/18 08:20 05/30/18 09:50 PT 17.3 SECONDS (9.7-12.2) H 05/27/18 11:00 INR 1.6 05/27/18 11:00 APTT 44 SECONDS (21-34) H 05/27/18 11:00 - Constitutional Appears: Well - Head Exam Head Exam: ATRAUMATIC, NORMAL INSPECTION, NORMOCEPHALIC - Eye Exam Eye Exam: EOMI, Normal appearance, PERRL Pupil Exam: NORMAL ACCOMODATION, PERRL - ENT Exam ENT Exam: Mucous Membranes Moist, Normal Exam - Neck Exam Neck Exam: Full ROM, Normal Inspection. absent: Lymphadenopathy - Respiratory Exam Respiratory Exam: Decreased Breath Sounds - Cardiovascular Exam Cardiovascular Exam: REGULAR RHYTHM, +S1, +S2 - GI/Abdominal Exam GI & Abdominal Exam: Soft, Diminished Bowel Sounds - Rectal Exam Rectal Exam: Deferred
--- NOTE | 2018-05-30 13:55 | CP.PCM.PN ---
<Thalia Solis - Last Filed: 05/30/18 16:52> Subjective - Date & Time of Evaluation Date of Evaluation: 05/30/18 Time of Evaluation: 10:00 - Subjective Subjective: GI Fellow PGY5 Progress Note Pt seen and evaluated at bedside, pt doing better with no abdominal pain, N/V. He is tolerating a diet with no issues. AAOx3. ROS: A 12pt ROS was negative except as above. Objective - Vital Signs/Intake and Output Vital Signs (last 24 hours): Temp Pulse Resp BP Pulse Ox 98.7 F 98 H 20 109/73 99 05/30/18 07:57 05/30/18 07:57 05/30/18 07:57 05/30/18 12:22 05/30/18 07:57 Intake and Output: 05/30/18 05/30/18 06:59 18:59 Intake Total 435 150 Balance 435 150 - Medications Medications: Current Medications Furosemide (Lasix) 20 mg PO DAILY [facility] Last Admin: 05/30/18 12:22 Dose: 20 mg Haloperidol Lactate (Haldol) 5 mg IM Q6H PRN PRN Reason: severe agitation Last Admin: 05/29/18 19:47 Dose: 5 mg Lactulose (Enulose) 20 gm PO BID [facility] Last Admin: 05/30/18 10:00 Dose: 20 gm Lorazepam (Ativan) 2 mg PO Q12H [facility] PRN Reason: Taper Stop: 05/31/18 15:59 Last Admin: 05/30/18 03:53 Dose: 2 mg Lorazepam (Ativan) 1 mg IVP Q2H PRN PRN Reason: Symptoms of alcohol withdrawl Lorazepam (Ativan) 2 mg PO ONCE ONE Stop: 05/31/18 09:01 Pantoprazole Sodium (Protonix Inj) 40 mg IVP DAILY [facility] Last Admin: 05/30/18 10:00 Dose: 40 mg Spironolactone (Aldactone) 50 mg PO DAILY [facility] Last Admin: 05/30/18 10:00 Dose: 50 mg Trazodone HCl (Desyrel) 50 mg PO HS [facility] Last Admin: 05/29/18 21:21 Dose: Not Given - Labs Labs: 05/30/18 08:20 05/30/18 09:50 PT 17.3 SECONDS (9.7-12.2) H 05/27/18 11:00 INR 1.6 05/27/18 11:00 APTT 44 SECONDS (21-34) H 05/27/18 11:00 - Constitutional Appears: Non-toxic, No Acute Distress, Cachectic - Head Exam Head Exam: ATRAUMATIC, NORMAL INSPECTION, NORMOCEPHALIC - Eye Exam Eye Exam: EOMI, Normal appearance, PERRL - ENT Exam ENT Exam: Mucous Membranes Moist - Neck Exam Neck Exam: Full ROM, Normal Inspection - Respiratory Exam Respiratory Exam: Clear to Ausculation Bilateral, NORMAL BREATHING PATTERN - Cardiovascular Exam Cardiovascular Exam: REGULAR RHYTHM, +S1, +S2 - GI/Abdominal Exam GI & Abdominal Exam: Distended, Soft, Normal Bowel Sounds. absent: Guarding, Rigid, Tenderness, Organomegaly - Rectal Exam Rectal Exam: Deferred - Extremities Exam Extremities Exam: Full ROM, Pedal Edema - Back Exam Back Exam: NORMAL INSPECTION - Neurological Exam Neurological Exam: Alert, Awake, Oriented x3 - Psychiatric Exam Psychiatric exam: Flat Affect - Skin Skin Exam: Dry, Intact, Normal Color, Warm Assessment and Plan - Assessment and Plan (Free Text) Assessment: This is a 43 yo M with EtOH cirrhosis presenting with ongoing EtOH Abuse and Abd distention. 1) EtOH Cirrhosis- Admission MELD-Na 16, Maddrey 28.68 2) Ascites 3) Grade 1 HE 4) EtOH Abuse 4) Hx of EV: s/p banding Jul 2017, last EGD 01/06/18 with small EV 5) Pancytopenia Plan: -Continue supportive care - Abd US with moderate ascites and cirrhosis - Ordered IR guided Paracentesis, check Cell Count w/diff, Cytology and Albumin - Platelets too low for paracentesis per ID - Recommend primary team to transfuse platelets prior to transfusion - Pancytopenia likely from bone marrow suppression - No active GI bleeding, H/H stable - Continue Furosemide 40 mg daily, Spironolactone 100 mg daily - Low Na Diet - Monitor for EtOH w/d - Counseled on EtOH cessation - Will start low dose BB for EV ppx - Lactulose to at least 2 BMs/day - Order daily labs including INR to calculate MELD and DF score - Please call with any questions or concerns <Matthew Che - Last Filed: 05/30/18 17:56> Objective - Vital Signs/Intake and Output Vital Signs (last 24 hours): Temp Pulse Resp BP Pulse Ox 98.7 F 96 H 20 105/68 98 05/30/18 16:26 05/30/18 16:26 05/30/18 16:26 05/30/18 16:26 05/30/18 16:26 Intake and Output: 05/30/18 05/30/18 06:59 18:59 Intake Total 435 350 Balance 435 350 - Medications Medications: Current Medications Carvedilol (Coreg) 3.125 mg PO BID [facility] Furosemide (Lasix) 40 mg PO DAILY [facility] Haloperidol Lactate (Haldol) 5 mg IM Q6H PRN PRN Reason: severe agitation Last Admin: 05/29/18 19:47 Dose: 5 mg Lactulose (Enulose) 20 gm PO BID [facility] Last Admin: 05/30/18 10:00 Dose: 20 gm Lorazepam (Ativan) 2 mg PO Q24H [facility] PRN Reason: Taper Stop: 05/31/18 15:59 Last Admin: 05/30/18 03:53 Dose: 2 mg Lorazepam (Ativan) 1 mg IVP Q2H PRN PRN Reason: Symptoms of alcohol withdrawl Lorazepam (Ativan) 2 mg PO ONCE ONE Stop: 05/31/18 09:01 Rifaximin (Xifaxan) 550 mg PO BID [facility] PRN Reason: Protocol Spironolactone (Aldactone) 100 mg PO DAILY [facility] Trazodone HCl (Desyrel) 50 mg PO HS [facility] Last Admin: 05/29/18 21:21 Dose: Not Given - Labs Labs: 05/30/18 08:20 05/30/18 09:50 PT 17.3 SECONDS (9.7-12.2) H 05/27/18 11:00 INR 1.6 05/27/18 11:00 APTT 44 SECONDS (21-34) H 05/27/18 11:00 Attending/Attestation - Attestation I have personally seen and examined this patient.: Yes I have fully participated in the care of the patient.: Yes I have reviewed all pertinent clinical information, including history, physical exam and plan: Yes Notes (Text): 05/30/18 17:55 The case was discussed with Dr. Narayan. Agree with the assessment and plan as outlined above.
--- NOTE | 2018-05-30 20:37 | CP.PCM.PN ---
Subjective - Date & Time of Evaluation Date of Evaluation: 05/29/18 Time of Evaluation: 17:00 - Subjective Subjective: No complaints. Objective - Vital Signs/Intake and Output Vital Signs (last 24 hours): Temp Pulse Resp BP Pulse Ox 98.7 F 96 H 20 105/68 98 05/30/18 16:26 05/30/18 16:26 05/30/18 16:26 05/30/18 16:26 05/30/18 16:26 Intake and Output: 05/30/18 05/31/18 18:59 06:59 Intake Total 350 Balance 350 - Medications Medications: Current Medications Carvedilol (Coreg) 3.125 mg PO BID [facility] Last Admin: 05/30/18 17:55 Dose: 3.125 mg Furosemide (Lasix) 40 mg PO DAILY [facility] Haloperidol Lactate (Haldol) 5 mg IM Q6H PRN PRN Reason: severe agitation Last Admin: 05/29/18 19:47 Dose: 5 mg Lactulose (Enulose) 20 gm PO BID [facility] Last Admin: 05/30/18 17:55 Dose: 20 gm Lorazepam (Ativan) 2 mg PO Q24H [facility] PRN Reason: Taper Stop: 05/31/18 15:59 Last Admin: 05/30/18 17:55 Dose: 2 mg Lorazepam (Ativan) 1 mg IVP Q2H PRN PRN Reason: Symptoms of alcohol withdrawl Lorazepam (Ativan) 2 mg PO ONCE ONE Stop: 05/31/18 09:01 Rifaximin (Xifaxan) 550 mg PO BID [facility] PRN Reason: Protocol Spironolactone (Aldactone) 100 mg PO DAILY [facility] Trazodone HCl (Desyrel) 50 mg PO [facility] Last Admin: 05/29/18 21:21 Dose: Not Given - Labs Labs: 05/30/18 08:20 05/30/18 09:50 PT 17.3 SECONDS (9.7-12.2) H 05/27/18 11:00 INR 1.6 05/27/18 11:00 APTT 44 SECONDS (21-34) H 05/27/18 11:00 - Head Exam Head Exam: ATRAUMATIC - Eye Exam Eye Exam: Normal appearance - ENT Exam ENT Exam: Mucous Membranes Dry - Respiratory Exam Respiratory Exam: NORMAL BREATHING PATTERN - Cardiovascular Exam Cardiovascular Exam: +S1, +S2 Assessment and Plan (1) Pancytopenia Assessment & Plan: secondary to alcohol abuse causing bone marrow suppression cirrhosis causing pHTN and sequestration with splenomegaly thrombopoietin dysregulation s/p plt transfusion Status: Acute
--- NOTE | 2018-05-30 20:38 | CP.PCM.PN ---
Subjective - Date & Time of Evaluation Date of Evaluation: 05/30/18 Time of Evaluation: 18:00 - Subjective Subjective: No complaints. Objective - Vital Signs/Intake and Output Vital Signs (last 24 hours): Temp Pulse Resp BP Pulse Ox 98.7 F 96 H 20 105/68 98 05/30/18 16:26 05/30/18 16:26 05/30/18 16:26 05/30/18 16:26 05/30/18 16:26 Intake and Output: 05/30/18 05/31/18 18:59 06:59 Intake Total 350 Balance 350 - Medications Medications: Current Medications Carvedilol (Coreg) 3.125 mg PO BID [facility] Last Admin: 05/30/18 17:55 Dose: 3.125 mg Furosemide (Lasix) 40 mg PO DAILY [facility] Haloperidol Lactate (Haldol) 5 mg IM Q6H PRN PRN Reason: severe agitation Last Admin: 05/29/18 19:47 Dose: 5 mg Lactulose (Enulose) 20 gm PO BID [facility] Last Admin: 05/30/18 17:55 Dose: 20 gm Lorazepam (Ativan) 2 mg PO Q24H [facility] PRN Reason: Taper Stop: 05/31/18 15:59 Last Admin: 05/30/18 17:55 Dose: 2 mg Lorazepam (Ativan) 1 mg IVP Q2H PRN PRN Reason: Symptoms of alcohol withdrawl Lorazepam (Ativan) 2 mg PO ONCE ONE Stop: 05/31/18 09:01 Rifaximin (Xifaxan) 550 mg PO BID [facility] PRN Reason: Protocol Spironolactone (Aldactone) 100 mg PO DAILY [facility] Trazodone HCl (Desyrel) 50 mg PO [facility] Last Admin: 05/29/18 21:21 Dose: Not Given - Labs Labs: 05/30/18 08:20 05/30/18 09:50 PT 17.3 SECONDS (9.7-12.2) H 05/27/18 11:00 INR 1.6 05/27/18 11:00 APTT 44 SECONDS (21-34) H 05/27/18 11:00 - Head Exam Head Exam: ATRAUMATIC - Eye Exam Eye Exam: Normal appearance - ENT Exam ENT Exam: Mucous Membranes Dry - Respiratory Exam Respiratory Exam: NORMAL BREATHING PATTERN - Cardiovascular Exam Cardiovascular Exam: +S1, +S2 - GI/Abdominal Exam GI & Abdominal Exam: Normal Bowel Sounds Assessment and Plan (1) Pancytopenia Assessment & Plan: alcohol abuse, liver disease, splenic sequestration transfusion support PRN Status: Acute
[2018-05-31 09:18] LABS: INR 2.1
[2018-05-31 09:33] LABS: HEMOGLOBIN 7.6 g/dL (12.0-18.0); MEAN CELL VOLUME 82.7 fL (80.0-94.0); MEAN CORPUSCULAR HEMOGLOBIN 25.5 pg (27.0-31.0); MEAN CORPUSCULAR HGB CONC 30.8 g/dL (33.0-37.0); MEAN PLATELET VOLUME 8.3 fL (7.2-11.7); PLATELET COUNT 76 K/uL (130-400); RBC 2.99 Mil/uL (4.40-5.90); RED CELL DISTRIBUTION WIDTH 20.3 % (11.5-14.5); WHITE BLOOD COUNT 3.5 K/uL (4.8-10.8)
[2018-05-31 09:54] LABS: FERRITIN 48.2 ng/mL
[2018-05-31 10:24] LABS: FOLATE 11.3 ng/mL
[2018-05-31 11:21] LABS: ALB/GLOB RATIO 0.7 (1.0-2.1); ALBUMIN 3.5 g/dL (3.5-5.0); ALT/SGPT 34 U/L (21-72); AST/SGOT 140 U/L (17-59); BLOOD UREA NITROGEN 4 mg/dL (9-20); CALCIUM 8.7 mg/dl (8.6-10.4); GFR NON-AFRICAN AMERICAN > 60
[2018-05-31 11:31] LABS: LYMPH # 0.5 K/uL (1.0-4.3); NEUT # 2.5 K/uL (1.8-7.0)
[2018-05-31 11:32] LABS: EOS # 0.2 K/uL (0.0-0.7); MONO # 0.3 K/uL (0.0-0.8)
--- NOTE | 2018-05-31 12:00 | CP.PCM.PN ---
<Will,Thalia - Last Filed: 05/31/18 12:01> Subjective - Date & Time of Evaluation Date of Evaluation: 05/31/18 Time of Evaluation: 10:30 - Subjective Subjective: GI Fellow PGY5 Progress Note Pt seen and evaluated at bedside, pt doing better with no abdominal pain, N/V. He is tolerating a diet with no issues. Per nursing pt is confused at times, no BM this am but +2BM yesterday. ROS: A 12pt ROS was negative except as above. Objective - Vital Signs/Intake and Output Vital Signs (last 24 hours): Temp Pulse Resp BP Pulse Ox 98.6 F 81 20 102/70 100 05/31/18 08:42 05/31/18 08:42 05/31/18 08:42 05/31/18 10:22 05/31/18 08:42 Intake and Output: 05/31/18 05/31/18 06:59 18:59 Intake Total 390 Balance 390 - Medications Medications: Current Medications Carvedilol (Coreg) 3.125 mg PO BID [facility] Last Admin: 05/31/18 10:21 Dose: 3.125 mg Furosemide (Lasix) 40 mg PO DAILY [facility] Last Admin: 05/31/18 10:22 Dose: 40 mg Haloperidol Lactate (Haldol) 5 mg IM Q6H PRN PRN Reason: severe agitation Last Admin: 05/29/18 19:47 Dose: 5 mg Lactulose (Enulose) 20 gm PO BID [facility] Last Admin: 05/31/18 10:22 Dose: 20 gm Lorazepam (Ativan) 2 mg PO Q24H [facility] PRN Reason: Taper Stop: 05/31/18 15:59 Last Admin: 05/30/18 17:55 Dose: 2 mg Lorazepam (Ativan) 1 mg IVP Q2H PRN PRN Reason: Symptoms of alcohol withdrawl Rifaximin (Xifaxan) 550 mg PO BID [facility] PRN Reason: Protocol Last Admin: 05/31/18 10:22 Dose: 550 mg Spironolactone (Aldactone) 100 mg PO DAILY [facility] Last Admin: 05/31/18 10:21 Dose: 100 mg Trazodone HCl (Desyrel) 50 mg PO HS [facility] Last Admin: 05/30/18 21:28 Dose: 50 mg - Labs Labs: 05/31/18 08:58 05/31/18 08:58 PT 23.0 SECONDS (9.7-12.2) H 05/31/18 08:58 INR 2.1 05/31/18 08:58 APTT 44 SECONDS (21-34) H 05/27/18 11:00 - Constitutional Appears: Non-toxic, No Acute Distress, Cachectic, Chronically Ill - Head Exam Head Exam: ATRAUMATIC, NORMAL INSPECTION, NORMOCEPHALIC - Eye Exam Eye Exam: EOMI, Normal appearance, PERRL Pupil Exam: PERRL - ENT Exam ENT Exam: Mucous Membranes Moist, Normal Exam - Neck Exam Neck Exam: Full ROM, Normal Inspection - Respiratory Exam Respiratory Exam: Clear to Ausculation Bilateral, NORMAL BREATHING PATTERN - Cardiovascular Exam Cardiovascular Exam: REGULAR RHYTHM, RRR, +S1, +S2 - GI/Abdominal Exam GI & Abdominal Exam: Soft, Normal Bowel Sounds. absent: Distended, Firm, Guarding, Tenderness - Rectal Exam Rectal Exam: Deferred - Extremities Exam Extremities Exam: Full ROM, Normal Inspection - Back Exam Back Exam: NORMAL INSPECTION - Neurological Exam Neurological Exam: Alert, Awake - Psychiatric Exam Psychiatric exam: Normal Affect, Normal Mood Assessment and Plan - Assessment and Plan (Free Text) Assessment: This is a 43 yo M with EtOH cirrhosis presenting with ongoing EtOH Abuse and Abd distention. 1) EtOH Cirrhosis- Admission MELD-Na 16, Maddrey 28.68 2) Ascites 3) Grade 1 HE 4) EtOH Abuse 4) Hx of EV: s/p banding Jul 2017, last EGD 01/06/18 with small EV 5) Pancytopenia Plan: -Continue supportive care - Abd US with moderate ascites and cirrhosis - Ordered IR guided Paracentesis, check Cell Count w/diff, Cytology and Albumin - Platelets too low for paracentesis per ID - Recommend primary team to transfuse platelets prior to transfusion - Pancytopenia likely from bone marrow suppression - No active GI bleeding, H/H stable - Continue Furosemide 40 mg daily, Spironolactone 100 mg daily - Low Na Diet - Monitor for EtOH w/d - Counseled on EtOH cessation - Tolerating low dose BB for EV ppx coreg 3.125 bid - Lactulose to at least 2 BMs/day - Start rifaxamin for HE - Order daily labs including INR to calculate MELD and DF score - Please call with any questions or concerns <Yane,Matthew - Last Filed: 05/31/18 18:56> Objective - Vital Signs/Intake and Output Vital Signs (last 24 hours): Temp Pulse Resp BP Pulse Ox 98.2 F 86 20 104/69 99 05/31/18 16:00 05/31/18 16:00 05/31/18 16:00 05/31/18 16:00 05/31/18 16:00 Intake and Output: 05/31/18 05/31/18 06:59 18:59 Intake Total 390 480 Balance 390 480 - Medications Medications: Current Medications Carvedilol (Coreg) 3.125 mg PO BID [facility] Last Admin: 05/31/18 17:49 Dose: 3.125 mg Furosemide (Lasix) 40 mg PO DAILY [facility] Last Admin: 05/31/18 10:22 Dose: 40 mg Haloperidol Lactate (Haldol) 5 mg IM Q6H PRN PRN Reason: severe agitation Last Admin: 05/29/18 19:47 Dose: 5 mg Lactulose (Enulose) 20 gm PO BID [facility] Last Admin: 05/31/18 17:49 Dose: 20 gm Lorazepam (Ativan) 1 mg IVP Q2H PRN PRN Reason: Symptoms of alcohol withdrawl Spironolactone (Aldactone) 100 mg PO DAILY [facility] Last Admin: 05/31/18 10:21 Dose: 100 mg Trazodone HCl (Desyrel) 50 mg PO HS [facility] Last Admin: 05/30/18 21:28 Dose: 50 mg - Labs Labs: 05/31/18 08:58 05/31/18 08:58 PT 23.0 SECONDS (9.7-12.2) H 05/31/18 08:58 INR 2.1 05/31/18 08:58 APTT 44 SECONDS (21-34) H 05/27/18 11:00 Attending/Attestation - Attestation I have personally seen and examined this patient.: Yes I have fully participated in the care of the patient.: Yes I have reviewed all pertinent clinical information, including history, physical exam and plan: Yes Notes (Text): 05/31/18 18:56 Chart reviewed. Events noted. Clinically better. Discussed with Dr. Quiroz and pt 's nurse. Agree with the assessment and plan as outlined above.
--- NOTE | 2018-05-31 13:59 | CP.PCM.PN ---
Subjective - Date & Time of Evaluation Date of Evaluation: 05/31/18 Time of Evaluation: 07:30 - Subjective Subjective: clinically same Objective - Vital Signs/Intake and Output Vital Signs (last 24 hours): Temp Pulse Resp BP Pulse Ox 98.6 F 81 20 102/70 100 05/31/18 08:42 05/31/18 08:42 05/31/18 08:42 05/31/18 10:22 05/31/18 08:42 Intake and Output: 05/31/18 05/31/18 06:59 18:59 Intake Total 390 Balance 390 - Medications Medications: Current Medications Carvedilol (Coreg) 3.125 mg PO BID [facility] Last Admin: 05/31/18 10:21 Dose: 3.125 mg Furosemide (Lasix) 40 mg PO DAILY [facility] Last Admin: 05/31/18 10:22 Dose: 40 mg Haloperidol Lactate (Haldol) 5 mg IM Q6H PRN PRN Reason: severe agitation Last Admin: 05/29/18 19:47 Dose: 5 mg Lactulose (Enulose) 20 gm PO BID [facility] Last Admin: 05/31/18 10:22 Dose: 20 gm Lorazepam (Ativan) 2 mg PO Q24H [facility] PRN Reason: Taper Stop: 05/31/18 15:59 Last Admin: 05/30/18 17:55 Dose: 2 mg Lorazepam (Ativan) 1 mg IVP Q2H PRN PRN Reason: Symptoms of alcohol withdrawl Rifaximin (Xifaxan) 550 mg PO BID [facility] PRN Reason: Protocol Last Admin: 05/31/18 10:22 Dose: 550 mg Spironolactone (Aldactone) 100 mg PO DAILY [facility] Last Admin: 05/31/18 10:21 Dose: 100 mg Trazodone HCl (Desyrel) 50 mg PO HS [facility] Last Admin: 05/30/18 21:28 Dose: 50 mg - Labs Labs: 05/31/18 08:58 05/31/18 08:58 PT 23.0 SECONDS (9.7-12.2) H 05/31/18 08:58 INR 2.1 05/31/18 08:58 APTT 44 SECONDS (21-34) H 05/27/18 11:00 - Constitutional Appears: Well - Head Exam Head Exam: ATRAUMATIC, NORMAL INSPECTION, NORMOCEPHALIC - Eye Exam Eye Exam: EOMI, Normal appearance, PERRL Pupil Exam: NORMAL ACCOMODATION, PERRL - ENT Exam ENT Exam: Mucous Membranes Moist, Normal Exam - Neck Exam Neck Exam: Full ROM, Normal Inspection. absent: Lymphadenopathy - Respiratory Exam Respiratory Exam: Decreased Breath Sounds - Cardiovascular Exam Cardiovascular Exam: REGULAR RHYTHM, +S1, +S2 - GI/Abdominal Exam GI & Abdominal Exam: Soft, Diminished Bowel Sounds - Rectal Exam Rectal Exam: Deferred
--- NOTE | 2018-06-01 08:06 | CARD ---
APPROVED REPORT Date of service: 05/29/2018 EKG Measurement Heart [id number] <Conclusion> Sinus tachycardia Otherwise normal ECG
[2018-06-01 08:11] LABS: INR 2.2; PROTHROMBIN TIME 24.1 SECONDS (9.7-12.2)
--- NOTE | 2018-06-01 08:12 | CP.PCM.PN ---
<Ish Mccartney - Last Filed: 06/01/18 15:10> Subjective - Date & Time of Evaluation Date of Evaluation: 06/01/18 Time of Evaluation: 07:10 - Subjective Subjective: PGY-4 GI Fellow Prog Note Pt lying in bed when seen this AM. States that abd distension improved. Denied n/v, f/c. 5 point ROS negative other than stated above Objective - Vital Signs/Intake and Output Vital Signs (last 24 hours): Temp Pulse Resp BP Pulse Ox 98.7 F 85 20 106/65 96 05/31/18 23:55 05/31/18 23:55 05/31/18 23:55 05/31/18 23:55 05/31/18 23:55 Intake and Output: 06/01/18 06/01/18 06:59 18:59 Intake Total 530 Balance 530 - Medications Medications: Current Medications Carvedilol (Coreg) 3.125 mg PO BID [facility] Last Admin: 05/31/18 17:49 Dose: 3.125 mg Furosemide (Lasix) 40 mg PO DAILY [facility] Last Admin: 05/31/18 10:22 Dose: 40 mg Haloperidol Lactate (Haldol) 5 mg IM Q6H PRN PRN Reason: severe agitation Last Admin: 05/29/18 19:47 Dose: 5 mg Lactulose (Enulose) 20 gm PO BID [facility] Last Admin: 05/31/18 17:49 Dose: 20 gm Lorazepam (Ativan) 1 mg IVP Q2H PRN PRN Reason: Symptoms of alcohol withdrawl Spironolactone (Aldactone) 100 mg PO DAILY [facility] Last Admin: 05/31/18 10:21 Dose: 100 mg Trazodone HCl (Desyrel) 50 mg PO HS [facility] Last Admin: 05/31/18 21:41 Dose: 50 mg - Labs Labs: 05/31/18 08:58 05/31/18 08:58 PT 23.0 SECONDS (9.7-12.2) H 05/31/18 08:58 INR 2.1 05/31/18 08:58 APTT 44 SECONDS (21-34) H 05/27/18 11:00 - Constitutional Appears: No Acute Distress, Cachectic, Chronically Ill - Head Exam Head Exam: ATRAUMATIC, NORMAL INSPECTION - Eye Exam Eye Exam: EOMI, Scleral icterus. absent: Conjunctival injection - ENT Exam ENT Exam: Mucous Membranes Dry, Normal External Ear Exam. absent: Mucous Membranes Moist - Respiratory Exam Respiratory Exam: NORMAL BREATHING PATTERN. absent: Wheezes - GI/Abdominal Exam GI & Abdominal Exam: Distended (mildly), Soft, Normal Bowel Sounds. absent: Bruit, Guarding, Rigid, Tenderness - Skin Skin Exam: Dry, Warm Additional comments: jaundiced Assessment and Plan - Assessment and Plan (Free Text) Assessment: 43 yo M with EtOH cirrhosis presenting with ongoing EtOH Abuse and Abd distention. # EtOH Cirrhosis: MELD-Na: 16, Maddrey 28.68. Ongoing EtOH abuse and not on diuretics as OP. - Ascites: Supposed to be on diuretics, not on low Na diet as outpatient - EV: s/p banding Jul 2017, last EGD 01/06/18 with small EV - HCC: Due for imaging; AFP 5.1 05/29/18 - HE: Cont lactulose, titrating to at least 3 BMs per day # EtOH Abuse: daily multiple beer drinker, last drink just prior to arrival Plan: - Cancel Paracentesis since no further ascites after diuretics - Cont Furodemide 40 mg daily, Spironolactone 100 mg daily as outpatient - Low Na Diet - Monitor for EtOH w/d - Counseled on EtOH cessation - Started on carvedilol 3.125 mg BID, BP/HR stable, cont as OP - Lactulose to at least 3 BMs/day, added rifaxamin due to some persistent mild confusion --- Should have script for both as OP, but rifaxamin cost may be of concern - HCC imaging as oupatient Pt seen and examined with Dr. Martel. <Danyel Martel - Last Filed: 06/01/18 15:25> Objective - Vital Signs/Intake and Output Vital Signs (last 24 hours): Temp Pulse Resp BP Pulse Ox 97.7 F 87 20 115/74 100 06/01/18 08:00 06/01/18 08:00 06/01/18 08:00 06/01/18 09:34 06/01/18 08:00 Intake and Output: 06/01/18 06/01/18 06:59 18:59 Intake Total 530 Balance 530 - Medications Medications: Current Medications Carvedilol (Coreg) 3.125 mg PO BID [facility] Last Admin: 06/01/18 09:36 Dose: 3.125 mg Furosemide (Lasix) 20 mg PO DAILY [facility] Haloperidol Lactate (Haldol) 5 mg IM Q6H PRN PRN Reason: severe agitation Last Admin: 05/29/18 19:47 Dose: 5 mg Lactulose (Enulose) 20 gm PO BID [facility] Last Admin: 06/01/18 09:35 Dose: 20 gm Lorazepam (Ativan) 1 mg IVP Q2H PRN PRN Reason: Symptoms of alcohol withdrawl Spironolactone (Aldactone) 100 mg PO DAILY [facility] Last Admin: 06/01/18 09:35 Dose: 100 mg Trazodone HCl (Desyrel) 50 mg PO HS [facility] Last Admin: 05/31/18 21:41 Dose: 50 mg - Labs Labs: 06/01/18 07:55 06/01/18 07:55 PT 24.1 SECONDS (9.7-12.2) H 06/01/18 07:55 INR 2.2 06/01/18 07:55 APTT 44 SECONDS (21-34) H 05/27/18 11:00 Attending/Attestation - Attestation I have personally seen and examined this patient.: Yes I have fully participated in the care of the patient.: Yes I have reviewed all pertinent clinical information, including history, physical exam and plan: Yes Notes (Text): 06/01/18 15:23 I have seen and examined patient with GI fellow. No acute events overnight, he is seen resting comfortably in bed. He denies abdominal pain, nausea, vomiting , fever/chills. Tolerating PO diet without difficulty. ETOH decompensated cirrhosis Abdominal distention - ascites - Low sodium diet as tolerated - Will defer paracentesis for time being given improvement in abdominal distention following initiation of diuretic therapy - Continue with diuretics, monitor electrolytes - Continue with lactulose for HE prevention - ETOH cessation counseling - No further planned GI intervention, will sign off case. Please reconsult as necessary, thank you.
[2018-06-01 08:15] LABS: EOS % 1.3 % (0.0-4.0); HEMOGLOBIN 8.7 g/dL (12.0-18.0); LYMPH # 0.6 K/uL (1.0-4.3); LYMPH % 18.4 % (20.0-40.0); MEAN CELL VOLUME 82.4 fL (80.0-94.0); MEAN CORPUSCULAR HEMOGLOBIN 25.6 pg (27.0-31.0); MEAN CORPUSCULAR HGB CONC 31.1 g/dL (33.0-37.0); MEAN PLATELET VOLUME 8.4 fL (7.2-11.7); MONO # 0.5 K/uL (0.0-0.8); MONO % 15.7 % (0.0-10.0); NEUT # 2.1 K/uL (1.8-7.0); NEUT % 63.6 % (50.0-75.0); NRBC % 0.1 % (0.0-2.0); RBC 3.39 Mil/uL (4.40-5.90); RED CELL DISTRIBUTION WIDTH 20.4 % (11.5-14.5); WHITE BLOOD COUNT 3.4 K/uL (4.8-10.8)
[2018-06-01 08:29] LABS: ALB/GLOB RATIO 0.7 (1.0-2.1); ALBUMIN 3.7 g/dL (3.5-5.0); ALT/SGPT 40 U/L (21-72); AST/SGOT 117 U/L (17-59); BLOOD UREA NITROGEN 6 mg/dL (9-20); CALCIUM 8.2 mg/dl (8.6-10.4); GFR NON-AFRICAN AMERICAN > 60
[2018-06-01] MEDS: Magnesium Sulfate 1 gm in D5W 1 GM/100 ML BAG IVPB SCH ×2 (11:38→12:04)
--- NOTE | 2018-06-01 11:59 | CP.PCM.PN ---
Subjective - Date & Time of Evaluation Date of Evaluation: 06/01/18 Time of Evaluation: 09:51 - Subjective Subjective: PGY2 Medicine Note for Dr. Kendrick Leroy Patient seen and examined this morning at bedside. No acute events overnight. Patient is resting comfortably in bed stating he is abdominal distention is improving. He has no pain and is feeling well. He reports improvement in his oral intake. He would like to be discharged home soon. Denies fevers, chills, nausea, vomiting, chest pain, shortness of breath, abdominal pain, edema, vision changes, numbness or tingling. Objective - Vital Signs/Intake and Output Vital Signs (last 24 hours): Temp Pulse Resp BP Pulse Ox 97.7 F 87 20 115/74 100 06/01/18 08:00 06/01/18 08:00 06/01/18 08:00 06/01/18 09:34 06/01/18 08:00 Intake and Output: 06/01/18 06/01/18 06:59 18:59 Intake Total 530 Balance 530 - Medications Medications: Current Medications Carvedilol (Coreg) 3.125 mg PO BID [facility] Last Admin: 06/01/18 09:36 Dose: 3.125 mg Furosemide (Lasix) 40 mg PO DAILY [facility] Last Admin: 06/01/18 09:34 Dose: 40 mg Haloperidol Lactate (Haldol) 5 mg IM Q6H PRN PRN Reason: severe agitation Last Admin: 05/29/18 19:47 Dose: 5 mg Magnesium Sulfate/Dextrose (Magnesium Sulfate 1 Gm/100 Ml D5w) 1 gm in 100 mls @ 300 mls/hr IVPB Q30M [facility] Stop: 06/01/18 12:04 Last Admin: 06/01/18 11:38 Dose: 300 mls/hr Lactulose (Enulose) 20 gm PO BID [facility] Last Admin: 06/01/18 09:35 Dose: 20 gm Lorazepam (Ativan) 1 mg IVP Q2H PRN PRN Reason: Symptoms of alcohol withdrawl Spironolactone (Aldactone) 100 mg PO DAILY [facility] Last Admin: 06/01/18 09:35 Dose: 100 mg Trazodone HCl (Desyrel) 50 mg PO HS [facility] Last Admin: 05/31/18 21:41 Dose: 50 mg - Labs Labs: 06/01/18 07:55 06/01/18 07:55 PT 24.1 SECONDS (9.7-12.2) H 06/01/18 07:55 INR 2.2 06/01/18 07:55 APTT 44 SECONDS (21-34) H 05/27/18 11:00 - Constitutional Appears: Non-toxic, No Acute Distress - Head Exam Head Exam: ATRAUMATIC, NORMOCEPHALIC - Eye Exam Eye Exam: Scleral icterus - ENT Exam ENT Exam: Mucous Membranes Moist - Neck Exam Neck Exam: absent: Lymphadenopathy - Respiratory Exam Respiratory Exam: Clear to Ausculation Bilateral, NORMAL BREATHING PATTERN. absent: Accessory Muscle Use, Rales, Rhonchi, Wheezes, Respiratory Distress - Cardiovascular Exam Cardiovascular Exam: REGULAR RHYTHM, +S1 - GI/Abdominal Exam GI & Abdominal Exam: Distended (mild), Soft. absent: Firm, Guarding, Rigid, Tenderness Additional comments: no fluid wave - Extremities Exam Extremities Exam: absent: Calf Tenderness, Pedal Edema - Neurological Exam Neurological Exam: Alert, Awake, Oriented x3 Neuro motor strength exam: Left Upper Extremity: 5, Right Upper Extremity: 5, Left Lower Extremity: 5, Right Lower Extremity: 5 Additional comments: No tremors noted - Psychiatric Exam Psychiatric exam: Normal Affect, Normal Mood - Skin Skin Exam: Dry, Warm Assessment and Plan - Assessment and Plan (Free Text) Plan: Decompensated Alcoholic Liver Cirrhosis GI consulted, Dr. Martel - help appreciated * Ordered US guided Paracentesis, check Cell Count w/diff, Cytology and Albumin * Continue with diuretics-monitor electrolytes * Continue with lactulose for HE prevention. Per GI, titrate to 3 BMs a day * Monitor for signs of ETOH withdrawal * 05/29/18 MELD Score of 12 F/U additional GI recommendations * 05/29/18 Child's Beckham Score of 9 * Overall prognosis for patient is poor. Patient is not a transplant candidate due to ongoing alcohol abuse. * Ammonia level 05/30 - 36 IR consulted, Dr. Joiner * Platelets. Morning level 73. This is still too low for paracentesis to be performed. IR made recommendations for a platelet level of at least 80. * Paracentesis is on hold due to decrease in abdominal distention. Abdominal Ultrasound 05/27/18: * Cirrhosis of liver and moderate ascites. Hepatosplenomegaly. Medications * Spironolactone 50 mg daily * Lactulose 20mg PO BID - to prevent hepatic encephalopathy * Lasix 20mg PO daily Pancytopenia Hematology consulted, Dr. Chahal * Alcohol abuse, liver disease, splenic sequestration * transfusion support prn Likely secondary to alcohol abuse Alcohol abuse Psych consulted, Dr. Villarreal Alcohol upon admission: 209 UDS negative Alcohol cessation urged Monitor for symptoms of withdrawal On Ativan 2mg PO q8h and Ativan 1mg IVP q4h prn Prophylactic measure Protonix 40mg IVP daily Trazodone 50mg PO HS [facility] DISPO: Monitor patient for continued improvement in abdominal distention by dieresis. Paracentesis on hold. Monitor for 2-3 days and plan to discharge home. Discussed with attending. All medical management per Dr. Kendrick Leroy
--- NOTE | 2018-06-01 16:05 | PCM.PYCHPN ---
Psychiatric Progress Note - Psychiatric Progress Note Patient seen today, length of contact: 15 minutes Patient Chief Complaint: "Not well" Problems Identified/Issues Discussed: Pt is seen, chart reviewed, case discussed with staff. Pt is compliant with medications and reports no side-effects. Symptoms are improving but needs more time to stabilize. Pt is still not oriented to date or time but is oriented to place; pt was disorganized and confused; pt can immediately recall 3 words but cannot recall after five minutes; pt alternates languages when speaking. Medication Change: No Medical Record Reviewed: Yes Mental Status Examination - Cognitive Function Orientation: Person, Place, Situation Memory: Impaired Attention: Poor Concentration: Poor Association: Loose Fund of Knowledge: Poor - Mood Mood: Depressed, Anxious - Affect Affect: Blunted - Formal Thought Process Formal Thought Process: No Impairment - Suicidal Ideation Suicidal Ideation: No - Homicidal Ideation Homicidal Ideation: No Goal/Treatment Plan - Goal/Treatment Plan Need for Continued Stay: Severe functional impairment, Other (medical) Progress Toward Problem(s) and Goals/Treatment Plan: Continue medications. Support and psychoeducation daily prn ativan
--- NOTE | 2018-06-01 18:56 | CP.PCM.PN ---
Subjective - Date & Time of Evaluation Date of Evaluation: 06/01/18 Time of Evaluation: 07:30 - Subjective Subjective: clinically same Objective - Vital Signs/Intake and Output Vital Signs (last 24 hours): Temp Pulse Resp BP Pulse Ox 97.8 F 84 20 109/77 95 06/01/18 15:00 06/01/18 15:00 06/01/18 15:00 06/01/18 15:00 06/01/18 15:00 Intake and Output: 06/01/18 06/01/18 06:59 18:59 Intake Total 530 Balance 530 - Medications Medications: Current Medications Carvedilol (Coreg) 3.125 mg PO BID [facility] Last Admin: 06/01/18 17:15 Dose: 3.125 mg Furosemide (Lasix) 20 mg PO DAILY [facility] Haloperidol Lactate (Haldol) 5 mg IM Q6H PRN PRN Reason: severe agitation Last Admin: 05/29/18 19:47 Dose: 5 mg Lactulose (Enulose) 20 gm PO BID [facility] Last Admin: 06/01/18 17:15 Dose: 20 gm Lorazepam (Ativan) 1 mg IVP Q2H PRN PRN Reason: Symptoms of alcohol withdrawl Rifaximin (Xifaxan) 550 mg PO BID [facility] PRN Reason: Protocol Last Admin: 06/01/18 17:16 Dose: 550 mg Spironolactone (Aldactone) 100 mg PO DAILY [facility] Last Admin: 06/01/18 09:35 Dose: 100 mg Trazodone HCl (Desyrel) 50 mg PO HS [facility] Last Admin: 05/31/18 21:41 Dose: 50 mg - Labs Labs: 06/01/18 07:55 06/01/18 07:55 PT 24.1 SECONDS (9.7-12.2) H 06/01/18 07:55 INR 2.2 06/01/18 07:55 APTT 44 SECONDS (21-34) H 05/27/18 11:00 - Constitutional Appears: Well - Head Exam Head Exam: ATRAUMATIC, NORMAL INSPECTION, NORMOCEPHALIC - Eye Exam Eye Exam: EOMI, Normal appearance, PERRL Pupil Exam: NORMAL ACCOMODATION, PERRL - ENT Exam ENT Exam: Mucous Membranes Moist, Normal Exam - Neck Exam Neck Exam: Full ROM, Normal Inspection. absent: Lymphadenopathy - Respiratory Exam Respiratory Exam: Decreased Breath Sounds - Cardiovascular Exam Cardiovascular Exam: REGULAR RHYTHM, +S1, +S2 - GI/Abdominal Exam GI & Abdominal Exam: Soft, Diminished Bowel Sounds - Rectal Exam Rectal Exam: Deferred Assessment and Plan (1) Ascites due to alcoholic cirrhosis Status: Acute (2) Pancytopenia Status: Acute (3) Alcohol dependence Status: Chronic (4) Abdominal pain Status: Acute (5) Abdominal pain Status: Acute (6) Acute upper GI bleed Status: Acute (7) Alcohol abuse Status: Acute (8) Alcohol withdrawal Status: Acute (9) Alcoholic gastritis Status: Acute (10) Anemia Status: Acute (11) Anemia Status: Acute (12) Delirium Status: Acute (13) Delirium tremens Status: Acute (14) Dizziness Status: Acute (15) Endotracheally intubated Status: Acute (16) Esophageal varices Status: Acute (17) FUO (fever of unknown origin) Status: Acute (18) Fever Status: Acute (19) GI bleed Status: Acute (20) Gastrointestinal hemorrhage Status: Acute (21) Hematemesis Status: Acute (22) Hepatic encephalopathy Status: Acute (23) Hyperthermia Status: Acute (24) Liver mass Status: Acute (25) Nausea Status: Acute (26) Pharyngitis Status: Acute (27) Prophylactic measure Status: Acute (28) Respiratory failure requiring intubation Status: Acute (29) Upper gastrointestinal bleeding Status: Acute (30) Vomiting Status: Acute (31) Vomiting Status: Acute (32) Withdrawal symptoms, alcohol Status: Acute (33) Alcoholic hepatitis Status: Chronic (34) Liver cirrhosis, alcoholic Status: Chronic (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 Martel - help appreciated * Ordered US guided Paracentesis, check Cell Count w/diff, Cytology and Albumin * Continue with diuretics-monitor electrolytes * Continue with lactulose for HE prevention. Per GI, titrate to 3 BMs a day * Monitor for signs of ETOH withdrawal * 05/29/18 MELD Score of 12 F/U additional GI recommendations * 05/29/18 Child's Beckham Score of 9 * Overall prognosis for patient is poor. Patient is not a transplant candidate due to ongoing alcohol abuse. * Ammonia level 05/30 - IR consulted, Dr. Joiner * Platelets. Morning level 73. This is still too low for paracentesis to be performed. IR made recommendations for a platelet level of at least 80. * Paracentesis is on hold due to decrease in abdominal distention. Abdominal Ultrasound 05/27/18: * Cirrhosis of liver and moderate ascites. Hepatosplenomegaly. Medications * Spironolactone 50 mg daily * Lactulose 20mg PO BID - to prevent hepatic encephalopathy * Lasix 20mg PO daily Pancytopenia Hematology consulted, Dr. Chahal * Alcohol abuse, liver disease, splenic sequestration * transfusion support prn Likely secondary to alcohol abuse Alcohol abuse Psych consulted, Dr. Villarreal Alcohol upon admission: 209 UDS negative Alcohol cessation urged Monitor for symptoms of withdrawal On Ativan 2mg PO q8h and Ativan 1mg IVP q4h prn Prophylactic measure Protonix 40mg IVP daily Trazodone 50mg PO HS SCDs DISPO: Monitor patient for continued improvement in abdominal distention by dieresis. Paracentesis on hold. Monitor for 2-3 days and plan to discharge home.
--- NOTE | 2018-06-01 23:12 | CP.PCM.PN ---
Subjective - Date & Time of Evaluation Date of Evaluation: 06/01/18 Time of Evaluation: 18:15 - Subjective Subjective: No complaints. Objective - Vital Signs/Intake and Output Vital Signs (last 24 hours): Temp Pulse Resp BP Pulse Ox 97.8 F 84 20 109/77 95 06/01/18 15:00 06/01/18 15:00 06/01/18 15:00 06/01/18 15:00 06/01/18 15:00 - Medications Medications: Current Medications Carvedilol (Coreg) 3.125 mg PO BID [facility] Last Admin: 06/01/18 17:15 Dose: 3.125 mg Furosemide (Lasix) 20 mg PO DAILY [facility] Haloperidol Lactate (Haldol) 5 mg IM Q6H PRN PRN Reason: severe agitation Last Admin: 05/29/18 19:47 Dose: 5 mg Lactulose (Enulose) 20 gm PO BID [facility] Last Admin: 06/01/18 17:15 Dose: 20 gm Lorazepam (Ativan) 1 mg IVP Q2H PRN PRN Reason: Symptoms of alcohol withdrawl Rifaximin (Xifaxan) 550 mg PO BID [facility] PRN Reason: Protocol Last Admin: 06/01/18 17:16 Dose: 550 mg Spironolactone (Aldactone) 100 mg PO DAILY [facility] Last Admin: 06/01/18 09:35 Dose: 100 mg Trazodone HCl (Desyrel) 50 mg PO HS [facility] Last Admin: 06/01/18 22:11 Dose: 50 mg - Labs Labs: 06/01/18 07:55 06/01/18 07:55 PT 24.1 SECONDS (9.7-12.2) H 06/01/18 07:55 INR 2.2 06/01/18 07:55 APTT 44 SECONDS (21-34) H 05/27/18 11:00 - Head Exam Head Exam: ATRAUMATIC - Eye Exam Eye Exam: Normal appearance - ENT Exam ENT Exam: Mucous Membranes Dry - Respiratory Exam Respiratory Exam: NORMAL BREATHING PATTERN - Cardiovascular Exam Cardiovascular Exam: +S1, +S2 - GI/Abdominal Exam GI & Abdominal Exam: Normal Bowel Sounds Assessment and Plan (1) Pancytopenia Assessment & Plan: alcohol abuse, liver disease, splenic sequestration transfusion support PRN Status: Acute
--- NOTE | 2018-06-02 06:07 | CP.PCM.PN ---
Subjective - Date & Time of Evaluation Date of Evaluation: 06/02/18 Time of Evaluation: 06:07 - Subjective Subjective: PGY2 Medicine Note for Dr. Kendrick Leroy Patient seen and examined this morning at bedside. No acute events overnight. Patient was seen sitting on the side of his bed with his feet hanging off. His abdominal distention is greatly improved. He is not experiencing any abdominal pain. He is tolerating his diet. He has no medical complaints at this time. Denies fevers, chills, nausea, vomiting, chest pain, shortness of breath, abdominal pain, edema, vision changes, numbness or tingling. Objective - Vital Signs/Intake and Output Vital Signs (last 24 hours): Temp Pulse Resp BP Pulse Ox 97.6 F 70 20 111/74 100 06/02/18 00:00 06/02/18 00:00 06/02/18 00:00 06/02/18 00:00 06/02/18 00:00 Intake and Output: 06/01/18 06/02/18 18:59 06:59 Intake Total 300 Balance 300 - Medications Medications: Current Medications Carvedilol (Coreg) 3.125 mg PO BID [facility] Last Admin: 06/01/18 17:15 Dose: 3.125 mg Furosemide (Lasix) 20 mg PO DAILY [facility] Haloperidol Lactate (Haldol) 5 mg IM Q6H PRN PRN Reason: severe agitation Last Admin: 06/02/18 00:58 Dose: 5 mg Lactulose (Enulose) 20 gm PO BID [facility] Last Admin: 06/01/18 17:15 Dose: 20 gm Lorazepam (Ativan) 1 mg IVP Q2H PRN PRN Reason: Symptoms of alcohol withdrawl Rifaximin (Xifaxan) 550 mg PO BID [facility] PRN Reason: Protocol Last Admin: 06/01/18 17:16 Dose: 550 mg Spironolactone (Aldactone) 100 mg PO DAILY [facility] Last Admin: 06/01/18 09:35 Dose: 100 mg Trazodone HCl (Desyrel) 50 mg PO HS [facility] Last Admin: 06/01/18 22:11 Dose: 50 mg - Labs Labs: 06/01/18 07:55 06/01/18 07:55 PT 24.1 SECONDS (9.7-12.2) H 06/01/18 07:55 INR 2.2 06/01/18 07:55 APTT 44 SECONDS (21-34) H 05/27/18 11:00 - Constitutional Appears: Non-toxic, No Acute Distress - Head Exam Head Exam: ATRAUMATIC, NORMOCEPHALIC - Eye Exam Eye Exam: EOMI, Scleral icterus - ENT Exam ENT Exam: Mucous Membranes Moist - Neck Exam Neck Exam: absent: Lymphadenopathy - Respiratory Exam Respiratory Exam: Clear to Ausculation Bilateral, NORMAL BREATHING PATTERN. absent: Accessory Muscle Use, Rales, Rhonchi, Wheezes, Respiratory Distress - Cardiovascular Exam Cardiovascular Exam: REGULAR RHYTHM, +S1 - GI/Abdominal Exam GI & Abdominal Exam: Soft. absent: Distended, Firm, Guarding, Rigid, Tenderness - Extremities Exam Extremities Exam: absent: Calf Tenderness, Pedal Edema - Neurological Exam Neurological Exam: Alert, Awake, Oriented x3 Neuro motor strength exam: Left Upper Extremity: 5, Right Upper Extremity: 5, Left Lower Extremity: 5, Right Lower Extremity: 5 Additional comments: No tremors noted - Psychiatric Exam Psychiatric exam: Normal Affect, Normal Mood - Skin Skin Exam: Dry, Warm Assessment and Plan - Assessment and Plan (Free Text) Plan: Decompensated Alcoholic Liver Cirrhosis GI consulted, Dr. Martel - help appreciated * Cancelled Paracentesis * Continue with diuretics-monitor electrolytes * Continue with lactulose for HE prevention. Per GI, titrate to 3 BMs a day * Monitor for signs of ETOH withdrawal * 05/29/18 MELD Score of 12 F/U additional GI recommendations * 05/29/18 Child's Beckham Score of 9 * Overall prognosis for patient is poor. Patient is not a transplant candidate due to ongoing alcohol abuse. * Ammonia level 05/30 - 36 IR consulted, Dr. Joiner * Paracentesis cancelled due to decrease in abdominal distention with diuretics. Abdominal Ultrasound 05/27/18: * Cirrhosis of liver and moderate ascites. Hepatosplenomegaly. Medications * Spironolactone 100 mg daily * Lactulose 20mg PO BID - to prevent hepatic encephalopathy * Lasix 20mg PO daily * Rifaxamin 550mg PO BID * Carvedilol 3.125mg PO BID Pancytopenia Hematology consulted, Dr. Chahal * Alcohol abuse, liver disease, splenic sequestration * transfusion support prn Likely secondary to alcohol abuse Alcohol abuse Psych consulted, Dr. Villarreal Alcohol upon admission: 209 UDS negative Alcohol cessation urged Monitor for symptoms of withdrawal Ativan 1mg IVP q2h prn Haldol 5mg IM q6h prn Prophylactic measure Protonix 40mg IVP daily Trazodone 50mg PO HS SCDs DISPO: Monitor patient for continued improvement in abdominal distention by dieresis. Paracentesis on hold. Possible discharge home tomorrow. Discussed with attending. All medical management per Dr. Kendrick Leroy
[2018-06-02 08:44] LABS: INR 2.1; PROTHROMBIN TIME 22.9 SECONDS (9.7-12.2)
[2018-06-02 09:06] LABS: MEAN PLATELET VOLUME 8.5 fL (7.2-11.7)
[2018-06-02 09:09] LABS: HEMOGLOBIN 9.2 g/dL (12.0-18.0); MEAN CELL VOLUME 80.9 fL (80.0-94.0); MEAN CORPUSCULAR HEMOGLOBIN 25.1 pg (27.0-31.0); RBC 3.66 Mil/uL (4.40-5.90); RED CELL DISTRIBUTION WIDTH 20.3 % (11.5-14.5); WHITE BLOOD COUNT 3.7 K/uL (4.8-10.8)
[2018-06-02 09:11] LABS: ALB/GLOB RATIO 0.7 (1.0-2.1); ALBUMIN 4.1 g/dL (3.5-5.0); ALT/SGPT 42 U/L (21-72); AST/SGOT 169 U/L (17-59); BLOOD UREA NITROGEN 9 mg/dL (9-20); CALCIUM 8.8 mg/dl (8.6-10.4); GFR NON-AFRICAN AMERICAN > 60
[2018-06-02 10:10] LABS: EOS # 0.1 K/uL (0.0-0.7); LYMPH # 0.6 K/uL (1.0-4.3); MONO # 0.4 K/uL (0.0-0.8); NEUT # 2.6 K/uL (1.8-7.0)
--- NOTE | 2018-06-02 10:54 | CP.PCM.PN ---
<Safia Hernandez - Last Filed: 06/02/18 16:31> Subjective - Date & Time of Evaluation Date of Evaluation: 06/02/18 Time of Evaluation: 08:00 - Subjective Subjective: Hem/Onc Consult Note: Dr. Chahal's Service Patient was seen and examined at bedside in the AM. Patient states he is feeling much better and is ready to go home. He states his abdomen is no longer distended. Patient denies nausea, vomiting, tremor, fever, chills, chest pain, palpitations or shortness of breath. Objective - Vital Signs/Intake and Output Vital Signs (last 24 hours): Temp Pulse Resp BP Pulse Ox 98.2 F 75 20 101/69 96 06/02/18 07:26 06/02/18 07:26 06/02/18 07:26 06/02/18 09:35 06/02/18 07:26 Intake and Output: 06/02/18 06/02/18 06:59 18:59 Intake Total 300 Balance 300 - Medications Medications: Current Medications Carvedilol (Coreg) 3.125 mg PO BID [facility] Last Admin: 06/02/18 09:35 Dose: 3.125 mg Furosemide (Lasix) 20 mg PO DAILY [facility] Last Admin: 06/02/18 09:35 Dose: 20 mg Haloperidol Lactate (Haldol) 5 mg IM Q6H PRN PRN Reason: severe agitation Last Admin: 06/02/18 00:58 Dose: 5 mg Lactulose (Enulose) 20 gm PO BID [facility] Last Admin: 06/02/18 09:34 Dose: 20 gm Lorazepam (Ativan) 1 mg IVP Q2H PRN PRN Reason: Symptoms of alcohol withdrawl Rifaximin (Xifaxan) 550 mg PO BID [facility] PRN Reason: Protocol Last Admin: 06/02/18 09:34 Dose: 550 mg Spironolactone (Aldactone) 100 mg PO DAILY [facility] Last Admin: 06/02/18 09:58 Dose: 100 mg Trazodone HCl (Desyrel) 50 mg PO HS [facility] Last Admin: 06/01/18 22:11 Dose: 50 mg - Labs Labs: 06/02/18 08:24 06/02/18 08:24 PT 22.9 SECONDS (9.7-12.2) H 06/02/18 08:24 INR 2.1 06/02/18 08:24 APTT 44 SECONDS (21-34) H 05/27/18 11:00 - Constitutional Appears: No Acute Distress, Chronically Ill - Head Exam Head Exam: ATRAUMATIC, NORMAL INSPECTION - Eye Exam Eye Exam: Conjunctival injection, EOMI, PERRL Pupil Exam: NORMAL ACCOMODATION - ENT Exam ENT Exam: Mucous Membranes Moist - Respiratory Exam Respiratory Exam: Clear to Ausculation Bilateral, NORMAL BREATHING PATTERN - Cardiovascular Exam Cardiovascular Exam: REGULAR RHYTHM, +S1, +S2 - GI/Abdominal Exam GI & Abdominal Exam: Soft, Normal Bowel Sounds. absent: Distended, Firm, Tenderness - Extremities Exam Extremities Exam: Normal Inspection Additional comments: Tremors - negative - Neurological Exam Neurological Exam: Alert, Awake, Oriented x3 - Psychiatric Exam Psychiatric exam: Normal Affect, Normal Mood - Skin Skin Exam: Normal Color Assessment and Plan - Assessment and Plan (Free Text) Assessment: Pancytopenia - secondary to ETOh abuse - Platelet (05/28/18) 25 --> 94 (06/02/18) - s/p 1 units platelephresis 05/29/18 - Continue to monitor Anemia - secondary to Etoh abuse - H/H (05/28/18): 7.5/24.4 --> H/H 9.2/29.6 - Continue to monitor Case discussed with Dr. Tirso Hernandez PGY-2 <Jeff Chahal - Last Filed: 06/02/18 17:01> Objective - Vital Signs/Intake and Output Vital Signs (last 24 hours): Temp Pulse Resp BP Pulse Ox 97.9 F 82 20 101/66 100 06/02/18 16:00 06/02/18 16:00 06/02/18 16:00 06/02/18 16:00 06/02/18 16:00 Intake and Output: 06/02/18 06/02/18 06:59 18:59 Intake Total 300 200 Balance 300 200 - Medications Medications: Current Medications Carvedilol (Coreg) 3.125 mg PO BID [facility] Last Admin: 06/02/18 09:35 Dose: 3.125 mg Furosemide (Lasix) 20 mg PO DAILY [facility] Last Admin: 06/02/18 09:35 Dose: 20 mg Lactulose (Enulose) 20 gm PO BID [facility] Last Admin: 06/02/18 09:34 Dose: 20 gm Lorazepam (Ativan) 1 mg IVP Q6H PRN PRN Reason: Symptoms of alcohol withdrawl Rifaximin (Xifaxan) 550 mg PO BID [facility] PRN Reason: Protocol Last Admin: 06/02/18 09:34 Dose: 550 mg Spironolactone (Aldactone) 100 mg PO DAILY [facility] Last Admin: 06/02/18 09:58 Dose: 100 mg Trazodone HCl (Desyrel) 50 mg PO HS [facility] Last Admin: 06/01/18 22:11 Dose: 50 mg - Labs Labs: 06/02/18 08:24 06/02/18 08:24 PT 22.9 SECONDS (9.7-12.2) H 06/02/18 08:24 INR 2.1 06/02/18 08:24 APTT 44 SECONDS (21-34) H 05/27/18 11:00 Assessment and Plan (1) Pancytopenia Status: Acute - Assessment and Plan (Free Text) Assessment: Pt seen and examined, agree with residents note.
--- NOTE | 2018-06-02 21:35 | CP.PCM.PN ---
Subjective - Date & Time of Evaluation Date of Evaluation: 06/02/18 Time of Evaluation: 20:00 - Subjective Subjective: Pt seen and examined at bedside no acute overnight events Objective - Vital Signs/Intake and Output Vital Signs (last 24 hours): Temp Pulse Resp BP Pulse Ox 97.9 F 82 20 101/66 100 06/02/18 16:00 06/02/18 16:00 06/02/18 16:00 06/02/18 16:00 06/02/18 16:00 Intake and Output: 06/02/18 06/03/18 18:59 06:59 Intake Total 200 Balance 200 - Medications Medications: Current Medications Carvedilol (Coreg) 3.125 mg PO BID [facility] Last Admin: 06/02/18 18:04 Dose: 3.125 mg Furosemide (Lasix) 20 mg PO DAILY [facility] Last Admin: 06/02/18 09:35 Dose: 20 mg Lactulose (Enulose) 20 gm PO BID [facility] Last Admin: 06/02/18 18:04 Dose: 20 gm Lorazepam (Ativan) 1 mg IVP Q6H PRN PRN Reason: Symptoms of alcohol withdrawl Rifaximin (Xifaxan) 550 mg PO BID [facility] PRN Reason: Protocol Last Admin: 06/02/18 09:34 Dose: 550 mg Spironolactone (Aldactone) 100 mg PO DAILY [facility] Last Admin: 06/02/18 09:58 Dose: 100 mg Trazodone HCl (Desyrel) 50 mg PO [facility] Last Admin: 06/01/18 22:11 Dose: 50 mg - Labs Labs: 06/02/18 08:24 06/02/18 08:24 PT 22.9 SECONDS (9.7-12.2) H 06/02/18 08:24 INR 2.1 06/02/18 08:24 APTT 44 SECONDS (21-34) H 05/27/18 11:00 Assessment and Plan (1) Ascites due to alcoholic cirrhosis Status: Acute (2) Pancytopenia Status: Acute (3) Alcohol dependence Status: Chronic (4) Abdominal pain Status: Acute (5) Abdominal pain Status: Acute (6) Acute upper GI bleed Status: Acute (7) Alcohol abuse Status: Acute (8) Alcohol withdrawal Status: Acute (9) Alcoholic gastritis Status: Acute (10) Anemia Status: Acute (11) Anemia Status: Acute (12) Delirium Status: Acute (13) Delirium tremens Status: Acute (14) Dizziness Status: Acute (15) Endotracheally intubated Status: Acute (16) Esophageal varices Status: Acute (17) FUO (fever of unknown origin) Status: Acute (18) Fever Status: Acute (19) GI bleed Status: Acute (20) Gastrointestinal hemorrhage Status: Acute (21) Hematemesis Status: Acute (22) Hepatic encephalopathy Status: Acute (23) Hyperthermia Status: Acute (24) Liver mass Status: Acute (25) Nausea Status: Acute (26) Pharyngitis Status: Acute (27) Prophylactic measure Status: Acute (28) Respiratory failure requiring intubation Status: Acute (29) Upper gastrointestinal bleeding Status: Acute (30) Vomiting Status: Acute (31) Vomiting Status: Acute (32) Withdrawal symptoms, alcohol Status: Acute (33) Alcoholic hepatitis Status: Chronic (34) Liver cirrhosis, alcoholic Status: Chronic (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 Maretl - help appreciated * Cancelled Paracentesis * Continue with diuretics-monitor electrolytes * Continue with lactulose for HE prevention. Per GI, titrate to 3 BMs a day * Monitor for signs of ETOH withdrawal * 05/29/18 MELD Score of 12 F/U additional GI recommendations * 05/29/18 Child's Beckham Score of 9 * Overall prognosis for patient is poor. Patient is not a transplant candidate due to ongoing alcohol abuse. * Ammonia level 05/30 - IR consulted, Dr. Joiner * Paracentesis cancelled due to decrease in abdominal distention with diuretics. Abdominal Ultrasound 05/27/18: * Cirrhosis of liver and moderate ascites. Hepatosplenomegaly. Medications * Spironolactone 100 mg daily * Lactulose 20mg PO BID - to prevent hepatic encephalopathy * Lasix 20mg PO daily * Rifaxamin 550mg PO BID * Carvedilol 3.125mg PO BID Pancytopenia Hematology consulted, Dr. Chahal * Alcohol abuse, liver disease, splenic sequestration * transfusion support prn Likely secondary to alcohol abuse Alcohol abuse Psych consulted, Dr. Villarreal Alcohol upon admission: 209 UDS negative Alcohol cessation urged Monitor for symptoms of withdrawal Ativan 1mg IVP q2h prn Haldol 5mg IM q6h prn Prophylactic measure Protonix 40mg IVP daily Trazodone 50mg PO HS SCDs DISPO: Monitor patient for continued improvement in abdominal distention by dieresis. Paracentesis on hold. Possible discharge home tomorrow.
[2018-06-03 07:07] LABS: INR 2.2; PROTHROMBIN TIME 24.1 SECONDS (9.7-12.2)
--- NOTE | 2018-06-03 07:12 | CP.PCM.PN ---
Subjective - Date & Time of Evaluation Date of Evaluation: 06/03/18 Time of Evaluation: 07:12 - Subjective Subjective: PGY2 Medicine Note for Dr. Kendrick Leroy Patient seen and examined this morning at bedside. No acute events overnight. Patient is much more awake and alert today. He is speaking with volume and making clear, decisive statements for the first time. He states he is feeling much better today. He feels he is getting stronger and would like to go home today. He has no medical complaints. Denies fevers, chills, nausea, vomiting, diarrhea, constipation, chest pain, shortness of breath, abdominal pain/ distention, numbness or tingling. Objective - Vital Signs/Intake and Output Vital Signs (last 24 hours): Temp Pulse Resp BP Pulse Ox 98.2 F 81 20 105/67 98 06/02/18 23:56 06/02/18 23:56 06/02/18 23:56 06/02/18 23:56 06/02/18 23:56 Intake and Output: 06/03/18 06/03/18 06:59 18:59 Intake Total 300 240 Balance 300 240 - Medications Medications: Current Medications Carvedilol (Coreg) 3.125 mg PO BID [facility] Last Admin: 06/02/18 18:04 Dose: 3.125 mg Furosemide (Lasix) 20 mg PO DAILY [facility] Last Admin: 06/02/18 09:35 Dose: 20 mg Lactulose (Enulose) 20 gm PO BID [facility] Last Admin: 06/02/18 18:04 Dose: 20 gm Lorazepam (Ativan) 1 mg IVP Q6H PRN PRN Reason: Symptoms of alcohol withdrawl Rifaximin (Xifaxan) 550 mg PO BID [facility] PRN Reason: Protocol Last Admin: 06/02/18 22:08 Dose: 550 mg Spironolactone (Aldactone) 100 mg PO DAILY [facility] Last Admin: 06/02/18 09:58 Dose: 100 mg Trazodone HCl (Desyrel) 50 mg PO [facility] Last Admin: 06/02/18 22:08 Dose: 50 mg - Labs Labs: 06/02/18 08:24 06/02/18 08:24 PT 24.1 SECONDS (9.7-12.2) H 06/03/18 06:55 INR 2.2 06/03/18 06:55 APTT 44 SECONDS (21-34) H 05/27/18 11:00 - Constitutional Appears: Non-toxic, No Acute Distress - Head Exam Head Exam: ATRAUMATIC, NORMOCEPHALIC - Eye Exam Eye Exam: Scleral icterus - ENT Exam ENT Exam: Mucous Membranes Moist - Neck Exam Neck Exam: absent: Lymphadenopathy - Respiratory Exam Respiratory Exam: Clear to Ausculation Bilateral, NORMAL BREATHING PATTERN. absent: Accessory Muscle Use, Rales, Rhonchi, Wheezes, Respiratory Distress - Cardiovascular Exam Cardiovascular Exam: REGULAR RHYTHM, +S1, +S2 - GI/Abdominal Exam GI & Abdominal Exam: Soft, Normal Bowel Sounds. absent: Distended, Firm, Guarding, Rigid, Tenderness - Extremities Exam Extremities Exam: absent: Calf Tenderness, Pedal Edema - Neurological Exam Neurological Exam: Alert, Awake, Oriented x3 Neuro motor strength exam: Left Upper Extremity: 5, Right Upper Extremity: 5, Left Lower Extremity: 5, Right Lower Extremity: 5 Additional comments: No tremors noted - Psychiatric Exam Psychiatric exam: Normal Affect, Normal Mood - Skin Skin Exam: Dry, Warm Assessment and Plan - Assessment and Plan (Free Text) Plan: Decompensated Alcoholic Liver Cirrhosis GI consulted, Dr. Martel - help appreciated * Cancelled Paracentesis * Continue with diuretics-monitor electrolytes * Continue with lactulose for HE prevention. Per GI, titrate to 3 BMs a day * Monitor for signs of ETOH withdrawal * 05/29/18 MELD Score of 12 F/U additional GI recommendations * 05/29/18 Child's Beckham Score of 9 * Overall prognosis for patient is poor. Patient is not a transplant candidate due to ongoing alcohol abuse. * Ammonia level 05/30 - 36 IR consulted, Dr. Joiner * Paracentesis cancelled due to decrease in abdominal distention with diuretics. Abdominal Ultrasound 05/27/18: * Cirrhosis of liver and moderate ascites. Hepatosplenomegaly. Medications * Spironolactone 100 mg daily * Lactulose 20mg PO BID - to prevent hepatic encephalopathy * Lasix 20mg PO daily * Rifaxamin 550mg PO BID * Carvedilol 3.125mg PO BID Pancytopenia Hematology consulted, Dr. Chahal * Alcohol abuse, liver disease, splenic sequestration * transfusion support prn Likely secondary to alcohol abuse Alcohol abuse Psych consulted, Dr. Villarreal Alcohol upon admission: 209 UDS negative Alcohol cessation urged - patient states that he understands that alcohol is the reason for this admission and he does not want to be in the hospital because of his continued drinking. He knows he can never have another drink due to risk of further damaging his liver. Monitor for symptoms of withdrawal Ativan 1mg IVP q2h prn Haldol 5mg IM q6h prn Prophylactic measure Protonix 40mg IVP daily Trazodone 50mg PO HS SCDs PT DISPO: Patient is refusing discharge to [facility]. He states that he would only like to be discharged home. Will monitor for one more night and hopefully discharge home tomorrow. All medical management per Dr. Kendrick Leroy
--- NOTE | 2018-06-03 17:16 | CP.PCM.PN ---
Subjective - Date & Time of Evaluation Date of Evaluation: 06/03/18 Time of Evaluation: 12:00 - Subjective Subjective: Patient seen and examined this morning at bedside. No acute events overnight. Patient is much more awake and alert today. He is speaking with volume and making clear, decisive statements for the first time. He states he is feeling much better today. He feels he is getting stronger and would like to go home today. He has no medical complaints. Denies fevers, chills, nausea, vomiting, diarrhea, constipation, chest pain, shortness of breath, abdominal pain/ distention, numbness or tingling. Objective - Vital Signs/Intake and Output Vital Signs (last 24 hours): Temp Pulse Resp BP Pulse Ox 98.4 F 76 20 103/69 100 06/03/18 07:47 06/03/18 07:47 06/03/18 07:47 06/03/18 09:12 06/03/18 07:47 Intake and Output: 06/03/18 06/03/18 06:59 18:59 Intake Total 300 240 Balance 300 240 - Medications Medications: Current Medications Carvedilol (Coreg) 3.125 mg PO BID [facility] Last Admin: 06/03/18 09:12 Dose: 3.125 mg Furosemide (Lasix) 20 mg PO DAILY [facility] Last Admin: 06/03/18 09:12 Dose: 20 mg Lactulose (Enulose) 20 gm PO BID [facility] Last Admin: 06/03/18 09:13 Dose: 20 gm Lorazepam (Ativan) 1 mg IVP Q6H PRN PRN Reason: Symptoms of alcohol withdrawl Rifaximin (Xifaxan) 550 mg PO BID [facility] PRN Reason: Protocol Last Admin: 06/03/18 09:12 Dose: 550 mg Spironolactone (Aldactone) 100 mg PO DAILY [facility] Last Admin: 06/03/18 10:10 Dose: 100 mg Trazodone HCl (Desyrel) 50 mg PO [facility] Last Admin: 06/02/18 22:08 Dose: 50 mg - Labs Labs: 06/02/18 08:24 06/02/18 08:24 PT 24.1 SECONDS (9.7-12.2) H 06/03/18 06:55 INR 2.2 06/03/18 06:55 APTT 44 SECONDS (21-34) H 05/27/18 11:00 - Constitutional Appears: Well - Head Exam Head Exam: ATRAUMATIC - Eye Exam Eye Exam: PERRL - ENT Exam ENT Exam: Mucous Membranes Dry - Neck Exam Neck Exam: Full ROM - Respiratory Exam Respiratory Exam: Decreased Breath Sounds - Cardiovascular Exam Cardiovascular Exam: REGULAR RHYTHM, +S1, +S2 - GI/Abdominal Exam GI & Abdominal Exam: Distended, Soft, Diminished Bowel Sounds - Rectal Exam Rectal Exam: Deferred - Neurological Exam Neurological Exam: Oriented x3 Assessment and Plan (1) Ascites due to alcoholic cirrhosis Status: Acute (2) Pancytopenia Status: Acute (3) Alcohol dependence Status: Chronic (4) Abdominal pain Status: Acute (5) Abdominal pain Status: Acute (6) Acute upper GI bleed Status: Acute (7) Alcohol abuse Status: Acute (8) Alcohol withdrawal Status: Acute (9) Alcoholic gastritis Status: Acute (10) Anemia Status: Acute (11) Anemia Status: Acute (12) Delirium Status: Acute (13) Delirium tremens Status: Acute (14) Dizziness Status: Acute (15) Endotracheally intubated Status: Acute (16) Esophageal varices Status: Acute (17) FUO (fever of unknown origin) Status: Acute (18) Fever Status: Acute (19) GI bleed Status: Acute (20) Gastrointestinal hemorrhage Status: Acute (21) Hematemesis Status: Acute (22) Hepatic encephalopathy Status: Acute (23) Hyperthermia Status: Acute (24) Liver mass Status: Acute (25) Nausea Status: Acute (26) Pharyngitis Status: Acute (27) Prophylactic measure Status: Acute (28) Respiratory failure requiring intubation Status: Acute (29) Upper gastrointestinal bleeding Status: Acute (30) Vomiting Status: Acute (31) Vomiting Status: Acute (32) Withdrawal symptoms, alcohol Status: Acute (33) Alcoholic hepatitis Status: Chronic (34) Liver cirrhosis, alcoholic Status: Chronic (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 Martel - help appreciated * Cancelled Paracentesis * Continue with diuretics-monitor electrolytes * Continue with lactulose for HE prevention. Per GI, titrate to 3 BMs a day * Monitor for signs of ETOH withdrawal * 05/29/18 MELD Score of 12 F/U additional GI recommendations * 05/29/18 Child's Beckham Score of 9 * Overall prognosis for patient is poor. Patient is not a transplant candidate due to ongoing alcohol abuse. * Ammonia level 05/30 - 36 IR consulted, Dr. Joiner * Paracentesis cancelled due to decrease in abdominal distention with diuretics. Abdominal Ultrasound 05/27/18: * Cirrhosis of liver and moderate ascites. Hepatosplenomegaly. Medications * Spironolactone 100 mg daily * Lactulose 20mg PO BID - to prevent hepatic encephalopathy * Lasix 20mg PO daily * Rifaxamin 550mg PO BID * Carvedilol 3.125mg PO BID Pancytopenia Hematology consulted, Dr. Chahal * Alcohol abuse, liver disease, splenic sequestration * transfusion support prn Likely secondary to alcohol abuse Alcohol abuse Psych consulted, Dr. Villarreal Alcohol upon admission: 209 UDS negative Alcohol cessation urged - patient states that he understands that alcohol is the reason for this admission and he does not want to be in the hospital because of his continued drinking. He knows he can never have another drink due to risk of further damaging his liver. Monitor for symptoms of withdrawal Ativan 1mg IVP q2h prn Haldol 5mg IM q6h prn Prophylactic measure Protonix 40mg IVP daily Trazodone 50mg PO HS SCDs PT DISPO: Patient is refusing discharge to [facility]. He states that he would only like to be discharged home. Will monitor for one more night and hopefully discharge home tomorrow.
[2018-06-04 08:41] LABS: INR 2.5; PROTHROMBIN TIME 26.9 SECONDS (9.7-12.2)
--- NOTE | 2018-06-04 09:54 | CP.PCM.PN ---
Subjective - Date & Time of Evaluation Date of Evaluation: 06/04/18 Time of Evaluation: 09:33 - Subjective Subjective: PGY2 Medicine Note for Dr. Kendrick Leroy Objective - Vital Signs/Intake and Output Vital Signs (last 24 hours): Temp Pulse Resp BP Pulse Ox 99.0 F 70 20 100/60 100 06/04/18 07:53 06/04/18 07:53 06/04/18 07:53 06/04/18 07:53 06/04/18 07:53 Intake and Output: 06/04/18 06/04/18 06:59 18:59 Intake Total 240 Balance 240 - Medications Medications: Current Medications Carvedilol (Coreg) 3.125 mg PO BID [facility] Last Admin: 06/03/18 17:45 Dose: 3.125 mg Furosemide (Lasix) 20 mg PO DAILY [facility] Last Admin: 06/03/18 09:12 Dose: 20 mg Lactulose (Enulose) 20 gm PO BID [facility] Last Admin: 06/03/18 17:45 Dose: 20 gm Lorazepam (Ativan) 1 mg IVP Q6H PRN PRN Reason: Symptoms of alcohol withdrawl Rifaximin (Xifaxan) 550 mg PO BID [facility] PRN Reason: Protocol Last Admin: 06/03/18 17:45 Dose: 550 mg Spironolactone (Aldactone) 100 mg PO DAILY [facility] Last Admin: 06/03/18 10:10 Dose: 100 mg Trazodone HCl (Desyrel) 50 mg PO [facility] Last Admin: 06/03/18 21:36 Dose: 50 mg - Labs Labs: 06/02/18 08:24 06/02/18 08:24 PT 26.9 SECONDS (9.7-12.2) H 06/04/18 08:03 INR 2.5 06/04/18 08:03 APTT 44 SECONDS (21-34) H 05/27/18 11:00
--- NOTE | 2018-06-04 10:39 | CP.PCM.PN ---
Subjective - Date & Time of Evaluation Date of Evaluation: 06/04/18 Time of Evaluation: 08:00 - Subjective Subjective: Hem/Onc Consult Note: Dr. Chahal's Service Patient was seen and examined at bedside in the AM. Patient states he is feeling well and is ready to go home. Patient denies nausea, vomiting, tremor, fever, chills, chest pain, palpitations or shortness of breath. Objective - Vital Signs/Intake and Output Vital Signs (last 24 hours): Temp Pulse Resp BP Pulse Ox 99.0 F 70 20 120/78 100 06/04/18 07:53 06/04/18 07:53 06/04/18 07:53 06/04/18 09:36 06/04/18 07:53 Intake and Output: 06/04/18 06/04/18 06:59 18:59 Intake Total 240 Balance 240 - Medications Medications: Current Medications Carvedilol (Coreg) 3.125 mg PO BID [facility] Last Admin: 06/04/18 09:36 Dose: 3.125 mg Furosemide (Lasix) 20 mg PO DAILY [facility] Last Admin: 06/04/18 09:36 Dose: 20 mg Lactulose (Enulose) 20 gm PO BID [facility] Last Admin: 06/04/18 09:36 Dose: 20 gm Lorazepam (Ativan) 1 mg IVP Q6H PRN PRN Reason: Symptoms of alcohol withdrawl Rifaximin (Xifaxan) 550 mg PO BID [facility] PRN Reason: Protocol Last Admin: 06/04/18 09:35 Dose: 550 mg Spironolactone (Aldactone) 100 mg PO DAILY [facility] Last Admin: 06/04/18 09:37 Dose: 100 mg Trazodone HCl (Desyrel) 50 mg PO [facility] Last Admin: 06/03/18 21:36 Dose: 50 mg - Labs Labs: 06/02/18 08:24 06/02/18 08:24 PT 26.9 SECONDS (9.7-12.2) H 06/04/18 08:03 INR 2.5 06/04/18 08:03 APTT 44 SECONDS (21-34) H 05/27/18 11:00 - Constitutional Appears: No Acute Distress - Head Exam Head Exam: ATRAUMATIC, NORMAL INSPECTION - Eye Exam Eye Exam: EOMI, PERRL, Scleral icterus Pupil Exam: NORMAL ACCOMODATION - ENT Exam ENT Exam: Mucous Membranes Moist - Respiratory Exam Respiratory Exam: Clear to Ausculation Bilateral, NORMAL BREATHING PATTERN - Cardiovascular Exam Cardiovascular Exam: REGULAR RHYTHM, +S1, +S2 - GI/Abdominal Exam GI & Abdominal Exam: Soft, Normal Bowel Sounds. absent: Tenderness - Extremities Exam Extremities Exam: Normal Inspection - Neurological Exam Neurological Exam: Alert, Awake, Oriented x3 - Psychiatric Exam Psychiatric exam: Normal Affect - Skin Skin Exam: Normal Color Assessment and Plan - Assessment and Plan (Free Text) Assessment: Pancytopenia - secondary to ETOh abuse - Platelet (05/28/18) 25 --> 94 (06/02/18) - s/p 1 units platelephresis 05/29/18 - Continue to monitor Anemia - secondary to Etoh abuse - H/H (05/28/18): 7.5/24.4 --> H/H 9.2/29.6 - Continue to monitor - Counselled patient on the importance of alcohol cessation. Case discussed with Dr. Tirso Hernandez PGY-2
[2018-06-04 16:00] VITALS: BP 101/66; PULSE 80; TEMP 98.5; O2SAT 99
--- NOTE | 2018-06-04 18:25 | CP.PCM.DIS ---
Provider - Provider Date of Admission: 05/27/18 12:45 Attending physician: Troy Garcia MD Primary care physician: dr. ishaan garcia md Time Spent in preparation of Discharge (in minutes): 30 Diagnosis - Discharge Diagnosis (1) Ascites due to alcoholic cirrhosis Status: Acute (2) Pancytopenia Status: Acute (3) Alcohol dependence Status: Chronic (4) Abdominal pain Status: Acute (5) Abdominal pain Status: Acute (6) Acute upper GI bleed Status: Acute Priority: High (7) Alcohol abuse Status: Acute (8) Alcohol withdrawal Status: Acute (9) Alcoholic gastritis Status: Acute (10) Anemia Status: Acute Priority: Medium (11) Anemia Status: Acute (12) Delirium Status: Acute Priority: High (13) Delirium tremens Status: Acute Priority: High (14) Dizziness Status: Acute (15) Endotracheally intubated Status: Acute (16) Esophageal varices Status: Acute (17) FUO (fever of unknown origin) Status: Acute (18) Fever Status: Acute (19) GI bleed Status: Acute (20) Gastrointestinal hemorrhage Status: Acute (21) Hematemesis Status: Acute (22) Hepatic encephalopathy Status: Acute (23) Hyperthermia Status: Acute (24) Liver mass Status: Acute (25) Nausea Status: Acute (26) Pharyngitis Status: Acute (27) Prophylactic measure Status: Acute (28) Respiratory failure requiring intubation Status: Acute (29) Upper gastrointestinal bleeding Status: Acute (30) Vomiting Status: Acute (31) Vomiting Status: Acute (32) Withdrawal symptoms, alcohol Status: Acute (33) Alcoholic hepatitis Status: Chronic (34) Liver cirrhosis, alcoholic Status: Chronic Priority: Low (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 Priority: Low (36) Thrombocytopenia Status: Chronic Priority: Low Hospital Course - Lab Results Lab Results: Most Recent Lab Values WBC 3.7 K/uL (4.8-10.8) L 06/02/18 08:24 RBC 3.66 Mil/uL (4.40-5.90) L 06/02/18 08:24 Hgb 9.2 g/dL (12.0-18.0) L 06/02/18 08:24 Hct 29.6 % (35.0-51.0) L 06/02/18 08:24 MCV 80.9 fL (80.0-94.0) 06/02/18 08:24 MCH 25.1 pg (27.0-31.0) L 06/02/18 08:24 MCHC 31.0 g/dL (33.0-37.0) L 06/02/18 08:24 RDW 20.3 % (11.5-14.5) H 06/02/18 08:24 Plt Count 94 K/uL (130-400) L D 06/02/18 08:24 Manual Plt Count 70 K/uL (130-400) L D 05/29/18 17:34 MPV 8.5 fL (7.2-11.7) 06/02/18 08:24 Neut % (Auto) 69.0 % (50.0-75.0) 06/02/18 08:24 Lymph % (Auto) 17.0 % (20.0-40.0) L 06/02/18 08:24 Pepin % (Auto) 10.0 % (0.0-10.0) 06/02/18 08:24 Eos % (Auto) 3.0 % (0.0-4.0) 06/02/18 08:24 Baso % (Auto) 1.0 % (0.0-2.0) 06/02/18 08:24 Neut # (Auto) 2.6 K/uL (1.8-7.0) 06/02/18 08:24 Lymph # (Auto) 0.6 K/uL (1.0-4.3) L 06/02/18 08:24 Pepin # (Auto) 0.4 K/uL (0.0-0.8) 06/02/18 08:24 Eos # (Auto) 0.1 K/uL (0.0-0.7) 06/02/18 08:24 Baso # (Auto) 0.0 K/uL (0.0-0.2) 06/02/18 08:24 Neutrophils % (Manual) 69 % (50-75) 05/30/18 08:20 Band Neutrophils % 2 % (0-2) 05/30/18 08:20 Lymphocytes % (Manual) 8 % (20-40) L 05/30/18 08:20 Monocytes % (Manual) 17 % (0-10) H 05/30/18 08:20 Eosinophils % (Manual) 3 % (0-4) 05/30/18 08:20 Basophils % (Manual) 1 % (0-2) 05/30/18 08:20 Differential Comment 05/31/18 08:58 Platelet Estimate Decreased (NORMAL) L 05/30/18 08:20 Polychromasia Slight 05/30/18 08:20 Hypochromasia (manual) Moderate 05/30/18 08:20 Anisocytosis (manual) Slight 05/30/18 08:20 Macrocytosis (manual) Slight 05/30/18 08:20 Target Cells Slight 05/30/18 08:20 Retic Count 3.8 % (0.5-1.5) H 05/31/18 08:58 PT 26.9 SECONDS (9.7-12.2) H 06/04/18 08:03 INR 2.5 06/04/18 08:03 APTT 44 SECONDS (21-34) H 05/27/18 11:00 Sodium 138 mmol/L (132-148) 06/02/18 08:24 Potassium 4.2 mmol/L (3.6-5.2) 06/02/18 08:24 Chloride 101 mmol/L (98-107) 06/02/18 08:24 Carbon Dioxide 20 mmol/L (22-30) L 06/02/18 08:24 Anion Gap 21 (10-20) H 06/02/18 08:24 BUN 9 mg/dL (9-20) 06/02/18 08:24 Creatinine 0.7 mg/dL (0.8-1.5) L 06/02/18 08:24 Est GFR ( Amer) > 60 06/02/18 08:24 Est GFR (Non-Af Amer) > 60 06/02/18 08:24 Random Glucose 99 mg/dL (75-110) 06/02/18 08:24 Calcium 8.8 mg/dl (8.6-10.4) 06/02/18 08:24 Phosphorus 3.0 mg/dL (2.5-4.5) 05/27/18 17:00 Magnesium 1.3 mg/dL (1.6-2.3) L 06/01/18 07:55 Ferritin 48.2 ng/mL 05/31/18 08:58 Total Bilirubin 7.9 mg/dL (0.2-1.3) H 06/02/18 08:24 AST 169 U/L (17-59) H D 06/02/18 08:24 ALT 42 U/L (21-72) 06/02/18 08:24 Alkaline Phosphatase 202 U/L (38-126) H 06/02/18 08:24 Ammonia 36 umol/L (9-33) H D 05/30/18 08:20 Troponin I < 0.0120 ng/mL (0.00-0.120) 05/27/18 11:00 NT-Pro-B Natriuret Pep 78.4 pg/mL (0-450) 05/27/18 11:00 Total Protein 10.1 g/dL (6.3-8.3) H 06/02/18 08:24 Albumin 4.1 g/dL (3.5-5.0) 06/02/18 08:24 Globulin 6.1 gm/dL (2.2-3.9) H 06/02/18 08:24 Albumin/Globulin Ratio 0.7 (1.0-2.1) L 06/02/18 08:24 Lipase 347 U/L (23-300) H 05/27/18 11:00 Alpha Fetoprotein 5.1 ng/mL (0.0-7.5) 05/29/18 08:05 Vitamin B12 938 pg/mL (239-931) H 05/31/18 08:58 Folate 11.3 ng/mL 05/31/18 08:58 Urine Color Yellow (YELLOW) 05/27/18 12:32 Urine Clarity Clear (Clear) 05/27/18 12:32 Urine pH 7.0 (5.0-8.0) 05/27/18 12:32 Ur Specific [place] 1.002 (1.003-1.030) L 05/27/18 12:32 Urine Protein Negative mg/dL (NEGATIVE) 05/27/18 12:32 Urine Glucose (UA) Normal mg/dL (Normal) 05/27/18 12:32 Urine Ketones Negative mg/dL (NEGATIVE) 05/27/18 12:32 Urine Blood Negative (NEGATIVE) 05/27/18 12:32 Urine Nitrate Negative (NEGATIVE) 05/27/18 12:32 Urine Bilirubin Negative (NEGATIVE) 05/27/18 12:32 Urine Urobilinogen Normal mg/dL (0.2-1.0) 05/27/18 12:32 Ur Leukocyte Esterase Neg Rita/uL (Negative) 05/27/18 12:32 Urine WBC (Auto) < 1 /hpf (0-5) 05/27/18 12:32 Urine Opiates Screen Negative (NEGATIVE) 05/27/18 12:32 Urine Methadone Screen Negative (NEGATIVE) 05/27/18 12:32 Ur Barbiturates Screen Negative (NEGATIVE) 05/27/18 12:32 Ur Phencyclidine Scrn Negative (NEGATIVE) 05/27/18 12:32 Ur Amphetamines Screen Negative (NEGATIVE) 05/27/18 12:32 U Benzodiazepines Scrn Negative (NEGATIVE) 05/27/18 12:32 U Oth Cocaine Metabols Negative (NEGATIVE) 05/27/18 12:32 U Cannabinoids Screen Negative (NEGATIVE) 05/27/18 12:32 Alcohol, Quantitative 209 mg/dl (0-10) H 05/27/18 11:00 Blood Type O POSITIVE 05/28/18 11:06 Antibody Screen Negative 05/28/18 11:06 Discharge Exam - Head Exam Head Exam: ATRAUMATIC Discharge Plan - Discharge Medications Prescriptions: Spironolactone [Aldactone] 100 mg PO DAILY #30 tab Carvedilol [Coreg] 3.125 mg PO BID #60 tab Lactulose [Enulose] 20 gm PO BID #3 udc Folic Acid 1 mg PO DAILY #30 tab Furosemide [Lasix] 20 mg PO DAILY #30 tab Multivitamin [Multivitamins] 1 each PO DAILY #30 capsule Pantoprazole [Protonix EC Tab] 40 mg PO DAILY #30 ect rifAXIMin [Xifaxan] 550 mg PO BID #60 tab - Follow Up Plan Condition: GOOD Disposition: HOME/ ROUTINE Instructions: Bone Marrow Failure in Children (DC), Bone Marrow Failure in Children (GEN), Acute Abdominal Pain (DC), Acute Abdominal Pain (GEN) Additional Instructions: Patient is to be discharged home per Dr. Kendrick Garcia. Patient is to follow up with his primary care physician within 2-3 days of discharge. Patient is to follow up with Dr. Martel (GI) within 1-2 weeks of discharge for further HCC imaging. Patient is to take medications at directed. Patient informed that it is very important that he discontinues all alcohol use as it will cause further damage to his liver and can potentially result in his if he decides to continue to drink. If patient experiences any new or worsening symptoms, please go directly to the nearest emergency department. Referrals: Danyel Martel MD [Staff Provider] - Hannah Garcia MD [Staff Provider] -
== END 2018-06-04 20:00 | disposition home or self-care (01) | DRG 557 ==
LOC: C.ER 10:14 → C.9E 12:45 → C.3T 13:15
PROVIDERS: ADMIT Internal Medicine Nephrology; ATTEND Internal Medicine Nephrology
PROC: HZ2ZZZZ Detoxification Services for Substance Abuse Treatment (ICD-10-PCS; principal; 2018-05-27)
PROC: HZ52ZZZ Individual Psychotherapy for Substance Abuse Treatment, Cognitive-Behavioral (ICD-10-PCS; 2018-05-27)
PROC: HZ59ZZZ Individual Psychotherapy for Substance Abuse Treatment, Supportive (ICD-10-PCS; 2018-05-27)
PROC: HZ56ZZZ Individual Psychotherapy for Substance Abuse Treatment, Psychoeducation (ICD-10-PCS; 2018-05-27)
PROC: HZ42ZZZ Group Counseling for Substance Abuse Treatment, Cognitive-Behavioral (ICD-10-PCS; 2018-05-27)
PROC: HZ46ZZZ Group Counseling for Substance Abuse Treatment, Psychoeducation (ICD-10-PCS; 2018-05-27)
PROC: GZHZZZZ Group Psychotherapy (ICD-10-PCS; 2018-05-27)
PROC: GZ58ZZZ Individual Psychotherapy, Cognitive-Behavioral (ICD-10-PCS; 2018-05-27)
PROC: GZ56ZZZ Individual Psychotherapy, Supportive (ICD-10-PCS; 2018-05-27)
PROC: 30233R1 Transfusion of Nonautologous Platelets into Peripheral Vein, Percutaneous Approach (ICD-10-PCS; 2018-05-29)
DX: K70.31 Alcoholic cirrhosis of liver with ascites (principal); J96.00 Acute respiratory failure, unspecified whether with hypoxia or hypercapnia; K22.6 Gastro-esophageal laceration-hemorrhage syndrome; K72.00 Acute and subacute hepatic failure without coma; D61.818 Other pancytopenia; F10.231 Alcohol dependence with withdrawal delirium; K76.6 Portal hypertension; Y90.7 Blood alcohol level of 200-239 mg/100 ml; F32.9 Major depressive disorder, single episode, unspecified; I85.00 Esophageal varices without bleeding; K70.11 Alcoholic hepatitis with ascites; D64.9 Anemia, unspecified; K29.20 Alcoholic gastritis without bleeding; I85.10 Secondary esophageal varices without bleeding

== ENCOUNTER 2018-07-09 09:42 | Emergency (ER) | payer MEDICAID ==
[2018-07-09 10:20] VITALS: BMI 18.3
[2018-07-09 10:52] LABS: BASO % 0.9 % (0.0-2.0); EOS # 0.3 K/uL (0.0-0.7); EOS % 5.6 % (0.0-4.0); HEMOGLOBIN 8.8 g/dL (12.0-18.0); LYMPH # 0.5 K/uL (1.0-4.3); LYMPH % 10.8 % (20.0-40.0); MEAN CORPUSCULAR HEMOGLOBIN 29.9 pg (27.0-31.0); MEAN CORPUSCULAR HGB CONC 33.8 g/dL (33.0-37.0); MONO # 0.5 K/uL (0.0-0.8); MONO % 9.1 % (0.0-10.0); NEUT # 3.8 K/uL (1.8-7.0); NEUT % 73.6 % (50.0-75.0); RBC 2.94 Mil/uL (4.40-5.90); RED CELL DISTRIBUTION WIDTH 24.6 % (11.5-14.5); WHITE BLOOD COUNT 5.1 K/uL (4.8-10.8)
[2018-07-09 10:54] LABS: MEAN CELL VOLUME 88.6 fL (80.0-94.0)
[2018-07-09 11:00] LABS: LIPASE 269 U/L (23-300)
--- NOTE | 2018-07-09 11:38 | C.PDOC ---
History Of Present Illness 43-year-old male, is sent to the emergency department by PMD for repeat labs. Patient has a Hx of known ascites and liver cirrhosis. Pt was recently discharged from hospital 06/18. Patient denies any fever, chills, nausea/vomiting. Time Seen by Provider: 07/09/18 09:57 Chief Complaint (Nursing): Abnormal Labs History Per: Patient History/Exam Limitations: no limitations Current Symptoms Are (Timing): Gone Severity: Mild Recent travel outside of the [place]: No Past Medical History Reviewed: Historical Data, Nursing Documentation, Vital Signs Vital Signs: Last Vital Signs Temp 97.5 F L 07/09/18 10:05 Pulse 67 07/09/18 10:05 Resp 18 07/09/18 10:05 BP 94/55 L 07/09/18 10:05 Pulse Ox 99 07/09/18 10:05 - Medical History PMH: Anemia, Gastritis (+ H. PYLORII), Gastrointestinal Ulcer, HTN (PORTAL), Seizures Surgical History: Endoscopy - [facility] Procedures ALCOHOL DETOXIFICATION (10/03/14) DETOXIFICATION SERVICES FOR SUBSTANCE ABUSE TREATMENT (05/27/18) ESOPHAGOGASTRODUODENOSCOPY [EGD] W/CLOSED BIOPSY (08/10/14) GROUP CIVIL ENGINEER FOR SUBSTANCE ABUSE TREATMENT, PSYCHOEDUCATION (05/27/18) GROUP CIVIL ENGINEER FOR SUBSTANCE ABUSE, COGNITIVE BEHAVIORAL (05/27/18) GROUP PSYCHOTHERAPY (05/27/18) INDIV CIVIL ENGINEER FOR SUBSTANCE ABUSE TREATMENT, BEHAVIORAL (08/05/15) INDIV PSYCHOTHERAPY FOR SUBSTANCE ABUSE TREATMENT, SUPPORT (05/27/18) INDIV PSYCHOTHERAPY FOR SUBSTANCE ABUSE, COGNITIV BEHAVIORAL (05/27/18) INDIV PSYCHOTHERAPY FOR SUBSTANCE ABUSE, PSYCHOEDUCATION (05/27/18) INDIVIDUAL PSYCHOTHERAPY, COGNITIVE-BEHAVIORAL (05/27/18) INDIVIDUAL PSYCHOTHERAPY, SUPPORTIVE (05/27/18) INSERTION OF ENDOTRACHEAL AIRWAY INTO TRACHEA, VIA OPENING (08/05/15) INSPECTION OF UPPER INTESTINAL TRACT, ENDO (01/01/18) MEDS MGMT FOR SUBSTANCE ABUSE TREATMENT, OTH REPL MED (04/25/17) OCCLUSION ESOPHAGEAL VEIN W EXTRALUM DEV, PERC ENDO (07/16/17) OTHER ENDOSCOPY OF SM INTEST (11/19/14) PACKED CELL TRANSFUSION (04/04/15) PLATELET TRANSFUSION (11/19/14) RESPIRATORY VENTILATION, 24-96 CONSECUTIVE HOURS (08/05/15) TRANSFUSE NONAUT FROZEN PLASMA IN PERIPH VEIN, PERC (06/18/18) TRANSFUSE NONAUT PLATELETS IN PERIPH VEIN, PERC (05/27/18) TRANSFUSE NONAUT RED BLOOD CELLS IN PERIPH VEIN, PERC (01/01/18) VACCINATION NEC (03/14/14) Family History: States: No Known Family Hx - Social History Hx Tobacco Use: No Hx Alcohol Use: Yes (Cessation x 3 wks) Hx Substance Use: No - Immunization History Hx Tetanus Toxoid Vaccination: No Hx Influenza Vaccination: No Hx Pneumococcal Vaccination: Yes (2017) Review Of Systems Constitutional: Negative for: Fever Gastrointestinal: Positive for: Other (abdominal distention). Negative for: Nausea, Vomiting, Abdominal Pain Physical Exam - Physical Exam Appears: Non-toxic, No Acute Distress Skin: Warm, Dry, Jaundice Head: Atraumatic, Normacephalic Eye(s): bilateral: Scleral Icterus Nose: Normal Oral Mucosa: Moist Lips: Normal Appearing Neck: Normal ROM Cardiovascular: Rhythm Regular, No Murmur Respiratory: Normal Breath Sounds, No Accessory Muscle Use Gastrointestinal/Abdominal: Soft, Distention, Ascites Extremity: Normal ROM, No Deformity Neurological/Psych: Oriented x3, Normal Speech Gait: Steady ED Course And Treatment - Laboratory Results Result Diagrams: 07/09/18 10:45 07/09/18 10:45 Lab Interpretation: Abnormal O2 Sat by Pulse Oximetry: 99 Pulse Ox Interpretation: Normal (RA) Progress Note: Case discussed with Dr Kendrick Leroy who request INR. Patient is to have a peritoneal drainage when INR decreased. Dr Leroy aware of elevated INR and requests discharge and follow up as outpatient Reassessment Condition: Unchanged Disposition Discussed With Dr.: Hannah Leroy Doctor Will See Patient In The: Office Counseled Patient/Family Regarding: Studies Performed, Diagnosis, Need For Followup - Disposition Referrals: Hannah Leroy MD [Staff Provider] - Disposition: HOME/ ROUTINE Disposition Time: 13:15 Condition: STABLE Additional Instructions: Follow up with Dr Leroy for further evaluation Return to ED if any increase symptoms Instructions: Cirrhosis (DC), What to Do When Your INR Is Too High Forms: [facility] (Thai) - POA Present On Arrival: None - Clinical Impression Clinical Impression: Anemia, Coagulopathy, Liver cirrhosis, alcoholic - Scribe Statement The provider has reviewed the documentation as recorded by the Scribe (Nidia Wilson) All medical record entries made by the Scribe were at my direction and personall y dictated by me. I have reviewed the chart and agree that the record accurately reflects my personal performance of the history, physical exam, medical decision making, and the department course for this patient. I have also personally directed, reviewed, and agree with the discharge instructions and disposition.
[2018-07-09 11:51] LABS: URINE BILIRUBIN 1+ (NEGATIVE); URINE BLOOD NEGATIVE (NEGATIVE); URINE CLARITY Clear (Clear); URINE COLOR Amber (YELLOW); URINE GLUCOSE (UA) NORMAL (Normal); URINE LEUKOCYTE ESTERASE NEG Leu/uL (Negative); URINE PROTEIN NEGATIVE (NEGATIVE)
[2018-07-09 12:01] LABS: ALB/GLOB RATIO 0.5 (1.0-2.1); ALBUMIN 2.9 g/dL (3.5-5.0); ALT/SGPT 26 U/L (21-72); AST/SGOT 78 U/L (17-59); BLOOD UREA NITROGEN 14 mg/dL (9-20); CALCIUM 8.2 mg/dl (8.6-10.4); GFR NON-AFRICAN AMERICAN > 60
[2018-07-09 12:32] VITALS: BP 92/51; PULSE 64; RESP 12
[2018-07-09 12:56] LABS: PROTHROMBIN TIME 36.7 SECONDS (9.7-12.2)
[2018-07-09 13:00] LABS: INR 3.3
[2018-07-09 13:14] VITALS: O2SAT 99
[2018-07-09 13:32] VITALS: TEMP 97.1
== END 2018-07-09 13:32 | disposition home or self-care (01) ==
LOC: C.ER 09:42
DX: D64.9 Anemia, unspecified (principal); D68.9 Coagulation defect, unspecified; K70.30 Alcoholic cirrhosis of liver without ascites

== ENCOUNTER 2018-07-25 14:30 | Inpatient (IN) | payer MEDICAID ==
[2018-07-25 14:35] VITALS: BMI 18.8
[2018-07-25 15:10] LABS: MEAN CORPUSCULAR HEMOGLOBIN 32.1 pg (27.0-31.0)
--- NOTE | 2018-07-25 15:10 | C.PDOC ---
History Of Present Illness 43 year old male presents to the emergency department with recurring altered mental status since this morning. Patient has a history of alcohol cirrhosis, ascites, EV, alcohol abuse, rosa-torrez tear. Patient last used alcohol one month ago. He denies vomiting and diarrhea. No abdominal distention. LIMITED DUE TO CLIN COND RECUR AMS SINCE THIS MORNING. HO EtOH Cirrhosis c/b ascites, HE, EV (s/p banding), Ongoing EtOH Abuse, H/o MW Tear. LAST ETOH 1 MO. NO VD, FEVER. "HE WAS FINE YESTERDAY". NO ABD DISTENTION EXAM MILD DIST NONTOXIC HEENT ANICERTIC ABD NEG NEURO GRUNTING, POOR INTERACTION NO FOCAL MOTOR DEF PSYCH CALM COOPERATIVE REMAINDER NEG Time Seen by Provider: 07/25/18 15:07 Chief Complaint (Nursing): Altered Mental Status History Per: Patient History/Exam Limitations: Clinical Condition Onset/Duration Of Symptoms: Hrs Current Symptoms Are (Timing): Still Present Associated Symptoms: denies: Fever, Vomiting, Diarrhea Past Medical History Reviewed: Historical Data, Nursing Documentation, Vital Signs Vital Signs: Last Vital Signs Temp 98.3 F 07/25/18 14:38 Pulse 86 07/25/18 14:38 Resp 18 07/25/18 14:38 BP 126/83 07/25/18 14:38 Pulse Ox 100 07/25/18 14:38 - Medical History PMH: Anemia, Gastritis (+ H. PYLORII), Gastrointestinal Ulcer, HTN (PORTAL), Seizures Denies: Fractures, Chronic Kidney Disease Surgical History: Endoscopy - [facility] Procedures ALCOHOL DETOXIFICATION (10/03/14) DETOXIFICATION SERVICES FOR SUBSTANCE ABUSE TREATMENT (05/27/18) ESOPHAGOGASTRODUODENOSCOPY [EGD] W/CLOSED BIOPSY (08/10/14) GROUP ASSISTANT FOOD SERVICE DIRECTOR FOR SUBSTANCE ABUSE TREATMENT, PSYCHOEDUCATION (05/27/18) GROUP ASSISTANT FOOD SERVICE DIRECTOR FOR SUBSTANCE ABUSE, COGNITIVE BEHAVIORAL (05/27/18) GROUP PSYCHOTHERAPY (05/27/18) INDIV ASSISTANT FOOD SERVICE DIRECTOR FOR SUBSTANCE ABUSE TREATMENT, BEHAVIORAL (08/05/15) INDIV PSYCHOTHERAPY FOR SUBSTANCE ABUSE TREATMENT, SUPPORT (05/27/18) INDIV PSYCHOTHERAPY FOR SUBSTANCE ABUSE, COGNITIV BEHAVIORAL (05/27/18) INDIV PSYCHOTHERAPY FOR SUBSTANCE ABUSE, PSYCHOEDUCATION (05/27/18) INDIVIDUAL PSYCHOTHERAPY, COGNITIVE-BEHAVIORAL (05/27/18) INDIVIDUAL PSYCHOTHERAPY, SUPPORTIVE (05/27/18) INSERTION OF ENDOTRACHEAL AIRWAY INTO TRACHEA, VIA OPENING (08/05/15) INSPECTION OF UPPER INTESTINAL TRACT, ENDO (01/01/18) MEDS MGMT FOR SUBSTANCE ABUSE TREATMENT, OTH REPL MED (04/25/17) OCCLUSION ESOPHAGEAL VEIN W EXTRALUM DEV, PERC ENDO (07/16/17) OTHER ENDOSCOPY OF SM INTEST (11/19/14) PACKED CELL TRANSFUSION (04/04/15) PLATELET TRANSFUSION (11/19/14) RESPIRATORY VENTILATION, 24-96 CONSECUTIVE HOURS (08/05/15) TRANSFUSE NONAUT FROZEN PLASMA IN PERIPH VEIN, PERC (06/18/18) TRANSFUSE NONAUT PLATELETS IN PERIPH VEIN, PERC (05/27/18) TRANSFUSE NONAUT RED BLOOD CELLS IN PERIPH VEIN, PERC (01/01/18) VACCINATION NEC (03/14/14) Family History: States: No Known Family Hx - Social History Hx Tobacco Use: No Hx Alcohol Use: Yes (Cessation x 3 wks) Hx Substance Use: No - Immunization History Hx Tetanus Toxoid Vaccination: No Hx Influenza Vaccination: No Hx Pneumococcal Vaccination: Yes (2017) Review Of Systems Except As Marked, All Systems Reviewed And Found Negative. Constitutional: Negative for: Fever Gastrointestinal: Negative for: Vomiting, Abdominal Pain, Diarrhea Neurological: Positive for: Altered Mental Status Physical Exam - Physical Exam Appears: Non-toxic, In Acute Distress (mild) Skin: Warm, Dry Head: Atraumatic, Normacephalic Eye(s): bilateral: Other (anicteric) Ear(s): Bilateral: Normal Nose: Normal Oral Mucosa: Moist Neck: Normal, Supple Chest: Symmetrical, No Tenderness Cardiovascular: Rhythm Regular, No Murmur Respiratory: Normal Breath Sounds, No Rales, No Rhonchi, No Wheezing Gastrointestinal/Abdominal: Soft, No Tenderness, No Guarding, No Rebound Neurological/Psych: Normal Motor, Other (grunting, poor intection, no focal motor deficit, tracy, cooperative.) ED Course And Treatment - Laboratory Results Result Diagrams: 07/25/18 15:07 07/25/18 15:07 O2 Sat by Pulse Oximetry: 100 (RA) Pulse Ox Interpretation: Normal Progress Note: Plan: CT Head w/o Contrast. Alcohol Serum. Ammonia. CMP. CBC. CXR. Glucose POC. Enulose 20gm PO. Urine Culture. Urinalysis Progress - Re-Evaluation Re-evaluation Note: 07/25/18 17:19 EXAM UNCH PRIOR D/W DR Kendrick WEAVER WILL ADMIT - Data Reviewed Data Reviewed: Lab, Diagnostic imaging, Old records Disposition Counseled Patient/Family Regarding: Diagnosis, Need For Followup - Disposition Disposition: HOSPITALIZED Disposition Time: 17:19 Condition: SERIOUS Forms: [facility] (Lao) - POA Present On Arrival: None - Clinical Impression Clinical Impression: Hepatic encephalopathy - Scribe Statement The provider has reviewed the documentation as recorded by the Scribe (Collins Yo) Provider Attestation: All medical record entries made by the Scribe were at my direction and personally dictated by me. I have reviewed the chart and agree that the record accurately reflects my personal performance of the history, physical exam, medical decision making, and the department course for this patient. I have also personally directed, reviewed, and agree with the discharge instructions and disposition.
[2018-07-25 15:22] LABS: BASO # 0.1 K/uL (0.0-0.2); EOS # 0.1 K/uL (0.0-0.7); EOS % 1.8 % (0.0-4.0); HEMOGLOBIN 9.7 g/dL (12.0-18.0); LYMPH # 1.8 K/uL (1.0-4.3); LYMPH % 22.5 % (20.0-40.0); MEAN CELL VOLUME 93.6 fL (80.0-94.0); MEAN CORPUSCULAR HGB CONC 34.3 g/dL (33.0-37.0); MONO # 0.5 K/uL (0.0-0.8); MONO % 6.5 % (0.0-10.0); NEUT # 5.5 K/uL (1.8-7.0); NEUT % 68.2 % (50.0-75.0); RBC 3.03 Mil/uL (4.40-5.90); RED CELL DISTRIBUTION WIDTH 19.3 % (11.5-14.5)
[2018-07-25 15:23] LABS: ALB/GLOB RATIO 0.6 (1.0-2.1); ALBUMIN 3.8 g/dL (3.5-5.0); ALT/SGPT 31 U/L (21-72); AST/SGOT 96 U/L (17-59); BLOOD UREA NITROGEN 21 mg/dL (9-20); CALCIUM 9.3 mg/dl (8.6-10.4); GFR NON-AFRICAN AMERICAN > 60
--- NOTE | 2018-07-25 15:51 | RAD ---
HISTORY: AMS COMPARISON: Chest x-ray performed as part of obstructive series 05/27/18 TECHNIQUE: Chest, one view. FINDINGS: LUNGS: Left perihilar linear scarring. Left upper lobe bulla. Left-sided volume loss with shift of the mediastinum to the left. No focal consolidation. Please note that chest x-ray has limited sensitivity for the detection of pulmonary masses. PLEURA: No significant pleural effusion identified. No definite pneumothorax . CARDIOVASCULAR: The cardiomediastinal silhouette appears within normal limits of size. OSSEOUS STRUCTURES: No acute osseous abnormality identified. VISUALIZED UPPER ABDOMEN: Unremarkable. OTHER FINDINGS: None. IMPRESSION: Left perihilar linear scarring. Left upper lobe bulla. Left-sided volume loss with shift of the mediastinum to the left.
--- NOTE | 2018-07-25 16:41 | CT ---
Date of service: 07/25/2018 PROCEDURE: CT HEAD WITHOUT CONTRAST. HISTORY: AMS COMPARISON: Noncontrast head CT performed 04/25/17 TECHNIQUE: Axial computed tomography images were obtained through the head/brain without intravenous contrast. Radiation dose: Total exam DLP = 845.55 mGy-cm. This CT exam was performed using one or more of the following dose reduction techniques: Automated exposure control, adjustment of the mA and/or kV according to patient size, and/or use of iterative reconstruction technique. FINDINGS: HEMORRHAGE: No intracranial hemorrhage. BRAIN: Mild atrophy, greater than expected for patient age. No mass effect or edema. No atrophy or chronic microvascular ischemic changes.Please note that MRI with diffusion imaging is more sensitive in the detection of acute ischemic event. VENTRICLES: No hydrocephalus. CALVARIUM: Unremarkable. PARANASAL SINUSES: Unremarkable as visualized. No significant inflammatory changes. MASTOID AIR CELLS: Unremarkable as visualized. No inflammatory changes. OTHER FINDINGS: None. IMPRESSION: Mild atrophy, greater than expected for patient age. No acute intracranial pathology identified.
[2018-07-25 17:16] LABS: SQUAMOUS EPITHIAL < 1 /hpf (0-5); URINE BACTERIA RARE (<OCC); URINE BILIRUBIN NEGATIVE (NEGATIVE); URINE BLOOD NEGATIVE (NEGATIVE); URINE CLARITY Clear (Clear); URINE COLOR Amber (YELLOW); URINE GLUCOSE (UA) NORMAL (Normal); URINE LEUKOCYTE ESTERASE NEG Leu/uL (Negative); URINE PROTEIN NEGATIVE (NEGATIVE); URINE UROBILINOGEN NORMAL mg/dL (0.2-1.0)
--- NOTE | 2018-07-25 19:19 | CP.PCM.HP ---
Past Patient History - Infectious Disease Hx of Infectious Diseases: None - Past Medical History & Family History Past Medical History?: Yes - Past Social History Smoking Status: Never Smoked - CARDIAC Hx Hypertension: Yes (PORTAL) - PULMONARY Hx Respiratory Disorders: No - NEUROLOGICAL Hx Seizures: Yes - HEENT Hx HEENT Problems: No - RENAL Hx Chronic Kidney Disease: No - ENDOCRINE/METABOLIC Hx Endocrine Disorders: No - HEMATOLOGICAL/ONCOLOGICAL Hx Anemia: Yes - INTEGUMENTARY Hx Dermatological Problems: No - MUSCULOSKELETAL/RHEUMATOLOGICAL Hx Fractures: No - GASTROINTESTINAL Hx Gastritis: Yes (+ H. PYLORII) - GENITOURINARY/GYNECOLOGICAL Hx Genitourinary Disorders: No - PSYCHIATRIC Hx Substance Use: No - SURGICAL HISTORY Hx Surgeries: Yes Other/Comment: Endoscopy - ANESTHESIA Hx Anesthesia: Yes Hx Anesthesia Reactions: No Meds Allergies/Adverse Reactions: Allergies Allergy/AdvReac Type Severity Reaction Status Date / Time No Known Allergies Allergy Verified 07/25/18 14:34 Results - Vital Signs Recent Vital Signs: Last Vital Signs Temp 98.3 F 07/25/18 14:38 Pulse 67 07/25/18 16:55 Resp 16 07/25/18 16:55 BP 112/46 L 07/25/18 16:55 Pulse Ox 100 07/25/18 17:19 - Labs Result Diagrams: 07/25/18 15:07 07/25/18 15:07 Labs: Laboratory Results - last 24 hr 07/25/18 07/25/18 07/25/18 15:02 15:07 15:07 WBC 8.0 D RBC 3.03 L Hgb 9.7 L Hct 28.3 L MCV 93.6 D MCH 32.1 H MCHC 34.3 RDW 19.3 H Plt Count 76 L MPV 9.0 Neut % (Auto) 68.2 Lymph % (Auto) 22.5 [place] % (Auto) 6.5 Eos % (Auto) 1.8 Baso % (Auto) 1.0 Neut # (Auto) 5.5 Lymph # (Auto) 1.8 [place] # (Auto) 0.5 Eos # (Auto) 0.1 Baso # (Auto) 0.1 Sodium 132 Potassium 5.0 Chloride 99 Carbon Dioxide 17 L Anion Gap 21 H BUN 21 H Creatinine 0.9 Est GFR ( Amer) > 60 Est GFR (Non-Af Amer) > 60 POC Glucose (mg/dL) 135 H Random Glucose 123 H Calcium 9.3 Total Bilirubin 15.3 H AST 96 H D ALT 31 Alkaline Phosphatase 335 H D Ammonia Total Protein 10.5 H Albumin 3.8 Globulin 6.7 H Albumin/Globulin Ratio 0.6 L Urine Color Urine Clarity Urine pH Ur Specific [place] Urine Protein Urine Glucose (UA) Urine Ketones Urine Blood Urine Nitrate Urine Bilirubin Urine Urobilinogen Ur Leukocyte Esterase Urine WBC (Auto) Urine RBC (Auto) Ur Squamous Epith Cells Urine Bacteria Alcohol, Quantitative 07/25/18 07/25/18 07/25/18 15:07 15:31 16:55 WBC RBC Hgb Hct MCV MCH MCHC RDW Plt Count MPV Neut % (Auto) Lymph % (Auto) [place] % (Auto) Eos % (Auto) Baso % (Auto) Neut # (Auto) Lymph # (Auto) [place] # (Auto) Eos # (Auto) Baso # (Auto) Sodium Potassium Chloride Carbon Dioxide Anion Gap BUN Creatinine Est GFR ( Amer) Est GFR (Non-Af Amer) POC Glucose (mg/dL) Random Glucose Calcium Total Bilirubin AST ALT Alkaline Phosphatase Ammonia 11 D Total Protein Albumin Globulin Albumin/Globulin Ratio Urine Color Debbie Urine Clarity Clear Urine pH 6.0 Ur Specific [place] 1.013 Urine Protein Negative Urine Glucose (UA) Normal Urine Ketones Negative Urine Blood Negative Urine Nitrate Negative Urine Bilirubin Negative Urine Urobilinogen Normal Ur Leukocyte Esterase Neg Urine WBC (Auto) 10 H Urine RBC (Auto) < 1 Ur Squamous Epith Cells < 1 Urine Bacteria Rare Alcohol, Quantitative < 10
[2018-07-26] MEDS: Multiple Vitamins Tab PO SCH (10:37)
[2018-07-26] MEDS: Pantoprazole 40 mg EC Tab PO SCH (10:37)
--- NOTE | 2018-07-26 16:17 | CP.PCM.PN ---
Subjective - Date & Time of Evaluation Date of Evaluation: 07/26/18 Time of Evaluation: 10:30 - Subjective Subjective: clinically same Objective - Vital Signs/Intake and Output Vital Signs (last 24 hours): Temp Pulse Resp BP Pulse Ox 98.1 F 84 18 115/84 98 07/26/18 09:10 07/26/18 09:10 07/26/18 09:10 07/26/18 10:37 07/26/18 09:10 Intake and Output: 07/26/18 07/26/18 06:59 18:59 Intake Total 240 Balance 240 - Medications Medications: Current Medications Carvedilol (Coreg) 3.125 mg PO BID [facility] Last Admin: 07/26/18 10:37 Dose: 3.125 mg Folic Acid (Folic Acid) 1 mg PO DAILY [facility] Last Admin: 07/26/18 13:01 Dose: 1 mg Furosemide (Lasix) 20 mg IVP DAILY [facility] Last Admin: 07/26/18 10:37 Dose: 20 mg Hydroxyzine HCl (Atarax) 25 mg PO DAILY [facility] Last Admin: 07/26/18 10:37 Dose: 25 mg Lactulose (Enulose) 20 gm PO [facility] Last Admin: 07/25/18 23:54 Dose: Not Given Multivitamins (Hexavitamin) 1 tab PO DAILY [facility] Last Admin: 07/26/18 10:37 Dose: 1 tab Pantoprazole Sodium (Protonix Ec Tab) 40 mg PO DAILY [facility] Last Admin: 07/26/18 10:37 Dose: 40 mg Rifaximin (Xifaxan) 550 mg PO BID [facility]; Protocol Last Admin: 07/26/18 10:37 Dose: 550 mg Spironolactone (Aldactone) 100 mg PO DAILY [facility] Last Admin: 07/26/18 10:37 Dose: 100 mg Trazodone HCl (Desyrel) 50 mg PO [facility] Last Admin: 07/25/18 23:27 Dose: 50 mg - Labs Labs: 07/25/18 15:07 07/25/18 15:07 - Constitutional Appears: Well - Head Exam Head Exam: ATRAUMATIC, NORMAL INSPECTION, NORMOCEPHALIC - Eye Exam Eye Exam: EOMI, Normal appearance, PERRL Pupil Exam: NORMAL ACCOMODATION, PERRL - ENT Exam ENT Exam: Mucous Membranes Moist, Normal Exam - Neck Exam Neck Exam: Full ROM, Normal Inspection. absent: Lymphadenopathy - Respiratory Exam Respiratory Exam: Decreased Breath Sounds - Cardiovascular Exam Cardiovascular Exam: REGULAR RHYTHM, +S1, +S2 - GI/Abdominal Exam GI & Abdominal Exam: Soft, Diminished Bowel Sounds - Rectal Exam Rectal Exam: Deferred
[2018-07-26] MEDS ORDERED: Multivitamin (MVI) 10 ML, Thiamine 100 MG, Folic Acid 1 MG in Sodium Chloride 0.9% 1,00... IV ONE (20:44)
[2018-07-27] MEDS: Pantoprazole 40 mg EC Tab PO SCH (09:52)
[2018-07-27] MEDS: Multiple Vitamins Tab PO SCH (09:52)
[2018-07-27 10:53] LABS: HEMOGLOBIN 7.8 g/dL (12.0-18.0); MEAN CORPUSCULAR HEMOGLOBIN 32.6 pg (27.0-31.0)
[2018-07-27 11:03] LABS: BASO % 0.6 % (0.0-2.0); EOS # 0.1 K/uL (0.0-0.7); LYMPH # 0.6 K/uL (1.0-4.3); LYMPH % 12.5 % (20.0-40.0); MEAN CELL VOLUME 93.7 fL (80.0-94.0); MEAN CORPUSCULAR HGB CONC 34.7 g/dL (33.0-37.0); MEAN PLATELET VOLUME 8.7 fL (7.2-11.7); MONO # 0.7 K/uL (0.0-0.8); MONO % 14.4 % (0.0-10.0); NEUT # 3.5 K/uL (1.8-7.0); NEUT % 69.5 % (50.0-75.0); NRBC % 0.2 % (0.0-2.0); RBC 2.39 Mil/uL (4.40-5.90); RED CELL DISTRIBUTION WIDTH 17.4 % (11.5-14.5)
[2018-07-27 11:13] LABS: ALB/GLOB RATIO 0.5 (1.0-2.1); ALBUMIN 2.6 g/dL (3.5-5.0); ALT/SGPT 45 U/L (21-72); AST/SGOT 85 U/L (17-59); BLOOD UREA NITROGEN 13 mg/dL (9-20); CALCIUM 7.8 mg/dl (8.6-10.4); GFR NON-AFRICAN AMERICAN > 60
[2018-07-27 17:10] LABS: MEAN CELL VOLUME 95.8 fL (80.0-94.0); MEAN CORPUSCULAR HEMOGLOBIN 31.7 pg (27.0-31.0); MEAN CORPUSCULAR HGB CONC 33.1 g/dL (33.0-37.0); MEAN PLATELET VOLUME 8.7 fL (7.2-11.7); RBC 1.88 Mil/uL (4.40-5.90); RED CELL DISTRIBUTION WIDTH 17.6 % (11.5-14.5); WHITE BLOOD COUNT 3.6 K/uL (4.8-10.8)
[2018-07-27 17:15] LABS: HEMOGLOBIN 5.9 g/dL (12.0-18.0)
--- NOTE | 2018-07-27 18:40 | CP.PCM.PN ---
Subjective - Date & Time of Evaluation Date of Evaluation: 07/27/18 Time of Evaluation: 11:45 - Subjective Subjective: clinically same Objective - Vital Signs/Intake and Output Vital Signs (last 24 hours): Temp Pulse Resp BP Pulse Ox 97.3 F L 62 20 101/65 100 07/27/18 16:43 07/27/18 16:43 07/27/18 16:43 07/27/18 16:43 07/27/18 16:43 - Medications Medications: Current Medications Carvedilol (Coreg) 3.125 mg PO BID [facility] Last Admin: 07/27/18 18:13 Dose: Not Given Folic Acid (Folic Acid) 1 mg PO DAILY [facility] Last Admin: 07/27/18 09:52 Dose: 1 mg Furosemide (Lasix) 20 mg IVP DAILY [facility] Last Admin: 07/27/18 12:01 Dose: Not Given Hydroxyzine HCl (Atarax) 25 mg PO DAILY [facility] Last Admin: 07/27/18 09:52 Dose: 25 mg Lactulose (Enulose) 20 gm PO [facility] Last Admin: 07/26/18 22:53 Dose: 20 gm Multivitamins (Hexavitamin) 1 tab PO DAILY [facility] Last Admin: 07/27/18 09:52 Dose: 1 tab Pantoprazole Sodium (Protonix Ec Tab) 40 mg PO DAILY [facility] Last Admin: 07/27/18 09:52 Dose: 40 mg Rifaximin (Xifaxan) 550 mg PO BID [facility]; Protocol Last Admin: 07/27/18 18:15 Dose: 550 mg Spironolactone (Aldactone) 100 mg PO DAILY [facility] Last Admin: 07/27/18 09:52 Dose: 100 mg Trazodone HCl (Desyrel) 50 mg PO [facility] Last Admin: 07/26/18 22:53 Dose: 50 mg - Labs Labs: 07/27/18 17:07 07/27/18 10:47 - Constitutional Appears: Well - Head Exam Head Exam: ATRAUMATIC, NORMAL INSPECTION, NORMOCEPHALIC - Eye Exam Eye Exam: EOMI, Normal appearance, PERRL Pupil Exam: NORMAL ACCOMODATION, PERRL - ENT Exam ENT Exam: Mucous Membranes Moist, Normal Exam - Neck Exam Neck Exam: Full ROM, Normal Inspection. absent: Lymphadenopathy - Respiratory Exam Respiratory Exam: Decreased Breath Sounds - Cardiovascular Exam Cardiovascular Exam: REGULAR RHYTHM, +S1, +S2 - GI/Abdominal Exam GI & Abdominal Exam: Soft, Diminished Bowel Sounds - Rectal Exam Rectal Exam: Deferred
[2018-07-28 07:47] LABS: EOS # 0.2 K/uL (0.0-0.7); EOS % 3.8 % (0.0-4.0); LYMPH # 0.9 K/uL (1.0-4.3); LYMPH % 20.9 % (20.0-40.0); MEAN CORPUSCULAR HEMOGLOBIN 31.5 pg (27.0-31.0); MEAN CORPUSCULAR HGB CONC 34.9 g/dL (33.0-37.0); MEAN PLATELET VOLUME 8.6 fL (7.2-11.7); MONO # 0.6 K/uL (0.0-0.8); MONO % 12.7 % (0.0-10.0); NEUT # 2.8 K/uL (1.8-7.0); NEUT % 61.6 % (50.0-75.0); NRBC % 0.1 % (0.0-2.0); RBC 3.26 Mil/uL (4.40-5.90); RED CELL DISTRIBUTION WIDTH 18.1 % (11.5-14.5); WHITE BLOOD COUNT 4.5 K/uL (4.8-10.8)
[2018-07-28 08:04] LABS: ALB/GLOB RATIO 0.5 (1.0-2.1); ALBUMIN 2.6 g/dL (3.5-5.0); ALT/SGPT 40 U/L (21-72); AST/SGOT 78 U/L (17-59); BLOOD UREA NITROGEN 9 mg/dL (9-20); CALCIUM 8.1 mg/dl (8.6-10.4); GFR NON-AFRICAN AMERICAN > 60
[2018-07-28 08:07] LABS: HEMOGLOBIN 10.3 g/dL (12.0-18.0); MEAN CELL VOLUME 90.2 fL (80.0-94.0)
[2018-07-28] MEDS: Pantoprazole 40 mg EC Tab PO SCH (10:25)
[2018-07-28] MEDS: Multiple Vitamins Tab PO SCH (10:25)
[2018-07-28 12:50] VITALS: O2SAT 100
[2018-07-28 15:49] VITALS: RESP 20
--- NOTE | 2018-07-28 18:21 | CP.PCM.PN ---
Subjective - Date & Time of Evaluation Date of Evaluation: 07/28/18 Time of Evaluation: 10:00 - Subjective Subjective: clinically same Objective - Vital Signs/Intake and Output Vital Signs (last 24 hours): Temp Pulse Resp BP Pulse Ox 98.2 F 70 20 111/71 100 07/28/18 15:00 07/28/18 15:00 07/28/18 15:00 07/28/18 15:00 07/28/18 15:00 Intake and Output: 07/28/18 07/28/18 06:59 18:59 Intake Total 650 Balance 650 - Medications Medications: Current Medications Carvedilol (Coreg) 3.125 mg PO BID [facility] Last Admin: 07/28/18 10:24 Dose: Not Given Folic Acid (Folic Acid) 1 mg PO DAILY [facility] Last Admin: 07/28/18 10:24 Dose: 1 mg Furosemide (Lasix) 20 mg IVP DAILY [facility] Last Admin: 07/28/18 10:25 Dose: Not Given Hydroxyzine HCl (Atarax) 25 mg PO DAILY [facility] Last Admin: 07/28/18 10:24 Dose: 25 mg Lactulose (Enulose) 20 gm PO [facility] Last Admin: 07/27/18 21:41 Dose: 20 gm Multivitamins (Hexavitamin) 1 tab PO DAILY [facility] Last Admin: 07/28/18 10:25 Dose: 1 tab Pantoprazole Sodium (Protonix Ec Tab) 40 mg PO DAILY [facility] Last Admin: 07/28/18 10:25 Dose: 40 mg Rifaximin (Xifaxan) 550 mg PO BID [facility]; Protocol Last Admin: 07/28/18 10:26 Dose: 550 mg Spironolactone (Aldactone) 100 mg PO DAILY [facility] Last Admin: 07/28/18 10:24 Dose: Not Given Trazodone HCl (Desyrel) 50 mg PO [facility] Last Admin: 07/27/18 21:41 Dose: 50 mg - Labs Labs: 07/28/18 07:35 07/28/18 07:35 - Constitutional Appears: Well - Head Exam Head Exam: ATRAUMATIC, NORMAL INSPECTION, NORMOCEPHALIC - Eye Exam Eye Exam: EOMI, Normal appearance, PERRL Pupil Exam: NORMAL ACCOMODATION, PERRL - ENT Exam ENT Exam: Mucous Membranes Moist, Normal Exam - Neck Exam Neck Exam: Full ROM, Normal Inspection. absent: Lymphadenopathy - Respiratory Exam Respiratory Exam: Decreased Breath Sounds - Cardiovascular Exam Cardiovascular Exam: REGULAR RHYTHM, +S1, +S2 - GI/Abdominal Exam GI & Abdominal Exam: Soft, Diminished Bowel Sounds - Rectal Exam Rectal Exam: Deferred
[2018-07-29 08:15] VITALS: BP 94/62; PULSE 72; TEMP 98
[2018-07-29] MEDS: Multiple Vitamins Tab PO SCH (09:27)
[2018-07-29] MEDS: Pantoprazole 40 mg EC Tab PO SCH (09:27)
--- NOTE | 2018-07-29 14:00 | CP.PCM.PN ---
Subjective - Date & Time of Evaluation Date of Evaluation: 07/29/18 Time of Evaluation: 14:00 Objective - Vital Signs/Intake and Output Vital Signs (last 24 hours): Temp Pulse Resp BP Pulse Ox 98 F 72 20 94/62 L 100 07/29/18 08:00 07/29/18 08:00 07/29/18 08:00 07/29/18 08:00 07/29/18 08:00 - Medications Medications: Current Medications Carvedilol (Coreg) 3.125 mg PO BID [facility] Last Admin: 07/29/18 09:24 Dose: Not Given Folic Acid (Folic Acid) 1 mg PO DAILY [facility] Last Admin: 07/29/18 09:29 Dose: Not Given Furosemide (Lasix) 20 mg IVP DAILY [facility] Last Admin: 07/29/18 09:25 Dose: Not Given Hydroxyzine HCl (Atarax) 25 mg PO DAILY [facility] Last Admin: 07/29/18 09:27 Dose: 25 mg Lactulose (Enulose) 20 gm PO HS [facility] Last Admin: 07/28/18 21:46 Dose: 20 gm Multivitamins (Hexavitamin) 1 tab PO DAILY [facility] Last Admin: 07/29/18 09:27 Dose: 1 tab Pantoprazole Sodium (Protonix Ec Tab) 40 mg PO DAILY [facility] Last Admin: 07/29/18 09:27 Dose: 40 mg Rifaximin (Xifaxan) 550 mg PO BID [facility]; Protocol Last Admin: 07/29/18 09:27 Dose: 550 mg Spironolactone (Aldactone) 100 mg PO DAILY [facility] Last Admin: 07/29/18 09:24 Dose: Not Given Trazodone HCl (Desyrel) 50 mg PO HS [facility] Last Admin: 07/28/18 21:46 Dose: 50 mg - Labs Labs: 07/28/18 07:35 07/28/18 07:35 Assessment and Plan - Assessment and Plan (Free Text) Assessment: FOLLOW UP WITH DR Kendrick WEAVER AT HIS OFFICE ----CALL FOR APPOINTMENT CONTINUE HOME MEDICATION NEW PRESCRIPTION GIVEN LACTULOSE 30 ML PO Q12H ACTIVITY TOLERATED CALL DR Kendrick WEAVER OR GO TO THE EMERGENCY ROOM IF SYMPTOM RETURN OR WORSENING
[2018-07-29 14:01] LABS: BASO % 0.8 % (0.0-2.0); EOS # 0.2 K/uL (0.0-0.7); EOS % 3.7 % (0.0-4.0); HEMOGLOBIN 11.7 g/dL (12.0-18.0); LYMPH # 0.5 K/uL (1.0-4.3); LYMPH % 9.3 % (20.0-40.0); MEAN CORPUSCULAR HEMOGLOBIN 31.6 pg (27.0-31.0); MEAN PLATELET VOLUME 8.4 fL (7.2-11.7); MONO # 0.4 K/uL (0.0-0.8); MONO % 7.4 % (0.0-10.0); NEUT % 78.8 % (50.0-75.0); NRBC % 0.1 % (0.0-2.0); PLATELET COUNT 65 K/uL (130-400); RBC 3.71 Mil/uL (4.40-5.90); WHITE BLOOD COUNT 5.1 K/uL (4.8-10.8)
[2018-07-29 14:03] LABS: MEAN CELL VOLUME 92.9 fL (80.0-94.0)
[2018-07-29 14:25] LABS: EOSINOPHIL 1 % (0-4); LYMPHOCYTE 6 % (20-40); MONOCYTE 6 % (0-10); NEUTROPHIL 87 % (50-75); TOTAL CELLS COUNTED 100
[2018-07-29 14:26] LABS: ANISOCYTOSIS SLIGHT; PLATELET ESTIMATE DECREASED (NORMAL)
[2018-07-29 14:36] LABS: ALB/GLOB RATIO 0.6 (1.0-2.1); ALBUMIN 3.1 g/dL (3.5-5.0); ALT/SGPT 43 U/L (21-72); AST/SGOT 81 U/L (17-59); BLOOD UREA NITROGEN 8 mg/dL (9-20); CALCIUM 8.2 mg/dl (8.6-10.4); GFR NON-AFRICAN AMERICAN > 60
== END 2018-07-29 15:58 | disposition home or self-care (01) | DRG 205 ==
LOC: C.ER 14:30 → C.9E 17:19 → C.5S 23:19
PROVIDERS: ADMIT Internal Medicine Nephrology; ATTEND Internal Medicine Nephrology
DX: K72.90 Hepatic failure, unspecified without coma (principal); K70.31 Alcoholic cirrhosis of liver with ascites; K76.6 Portal hypertension

== ENCOUNTER 2018-08-31 19:34 | Inpatient (IN) | payer MEDICAID ==
[2018-08-31 19:35] VITALS: BMI 18.8
--- NOTE | 2018-08-31 20:32 | C.PDOC ---
History Of Present Illness INCR ABD DISTENTION X 4 DAYS. HO ASCITES, ETOH ABUSE BUT SOBER X 2 MONTHS. +PAIN DUE TO SWELLING. NO FEVER, NV. PER , PT @ [facility] CHRONIC ICTERUS "BUT IT LOOKS PRETTY GOOD NOW". EXAM MILD DIST NONTOXIC HEENT +SCLERAL ICTERUS ABD +DISTENTION TENSE SOFT NO R/G NEURO NO FOCAL DEF SKIN JAUNDICE REMAINDER NEG Time Seen by Provider: 08/31/18 20:10 Chief Complaint (Nursing): Abdominal Pain History Per: Patient, Family () History/Exam Limitations: no limitations Onset/Duration Of Symptoms: Days Current Symptoms Are (Timing): Still Present Severity: Moderate Past Medical History Reviewed: Historical Data, Nursing Documentation, Vital Signs Vital Signs: Last Vital Signs Temp 97.9 F 08/31/18 19:45 Pulse 95 H 08/31/18 19:45 Resp 20 08/31/18 19:45 BP 92/57 L 08/31/18 19:45 Pulse Ox 99 08/31/18 19:45 - Medical History PMH: Anemia, Gastritis (+ H. PYLORII), Gastrointestinal Ulcer, HTN (PORTAL), Seizures Denies: Fractures, Chronic Kidney Disease Surgical History: Endoscopy - [facility] Procedures ALCOHOL DETOXIFICATION (10/03/14) DETOXIFICATION SERVICES FOR SUBSTANCE ABUSE TREATMENT (05/27/18) ESOPHAGOGASTRODUODENOSCOPY [EGD] W/CLOSED BIOPSY (08/10/14) GROUP RIP TAILER FOR SUBSTANCE ABUSE TREATMENT, PSYCHOEDUCATION (05/27/18) GROUP RIP TAILER FOR SUBSTANCE ABUSE, COGNITIVE BEHAVIORAL (05/27/18) GROUP PSYCHOTHERAPY (05/27/18) INDIV RIP TAILER FOR SUBSTANCE ABUSE TREATMENT, BEHAVIORAL (08/05/15) INDIV PSYCHOTHERAPY FOR SUBSTANCE ABUSE TREATMENT, SUPPORT (05/27/18) INDIV PSYCHOTHERAPY FOR SUBSTANCE ABUSE, COGNITIV BEHAVIORAL (05/27/18) INDIV PSYCHOTHERAPY FOR SUBSTANCE ABUSE, PSYCHOEDUCATION (05/27/18) INDIVIDUAL PSYCHOTHERAPY, COGNITIVE-BEHAVIORAL (05/27/18) INDIVIDUAL PSYCHOTHERAPY, SUPPORTIVE (05/27/18) INSERTION OF ENDOTRACHEAL AIRWAY INTO TRACHEA, VIA OPENING (08/05/15) INSPECTION OF UPPER INTESTINAL TRACT, ENDO (01/01/18) MEDS MGMT FOR SUBSTANCE ABUSE TREATMENT, OTH REPL MED (04/25/17) OCCLUSION ESOPHAGEAL VEIN W EXTRALUM DEV, PERC ENDO (07/16/17) OTHER ENDOSCOPY OF SM INTEST (11/19/14) PACKED CELL TRANSFUSION (04/04/15) PLATELET TRANSFUSION (11/19/14) RESPIRATORY VENTILATION, 24-96 CONSECUTIVE HOURS (08/05/15) TRANSFUSE NONAUT FROZEN PLASMA IN PERIPH VEIN, PERC (06/18/18) TRANSFUSE NONAUT PLATELETS IN PERIPH VEIN, PERC (05/27/18) TRANSFUSE NONAUT RED BLOOD CELLS IN PERIPH VEIN, PERC (01/01/18) VACCINATION NEC (03/14/14) Family History: States: No Known Family Hx - Social History Hx Tobacco Use: No Hx Alcohol Use: No (beer, stops 2 months ago) Hx Substance Use: No - Immunization History Hx Tetanus Toxoid Vaccination: No Hx Influenza Vaccination: No Hx Pneumococcal Vaccination: Yes (2016) Review Of Systems Except As Marked, All Systems Reviewed And Found Negative. Constitutional: Negative for: Fever, Chills Gastrointestinal: Positive for: Other (abdominal distention). Negative for: Nausea, Vomiting Physical Exam - Physical Exam Appears: Non-toxic, Other (mild distress) Skin: Warm, Dry, Jaundice Head: Atraumatic, Normacephalic Eye(s): bilateral: Other (slceral icterus) Cardiovascular: Rhythm Regular Respiratory: Other (NARD) Gastrointestinal/Abdominal: Soft, No Tenderness, Distention (tense), No Guarding, No Rebound Neurological/Psych: Oriented x3, Normal Speech, Other (no focal deficits) ED Course And Treatment - Laboratory Results Result Diagrams: 08/31/18 20:55 O2 Sat by Pulse Oximetry: 99 (RA) Pulse Ox Interpretation: Normal - Radiology CXR: Interpreted by Me, Viewed By Me CXR Interpretation: Yes: No Acute Disease, Other (unchanged from prior). No: Infiltrates Progress - Re-Evaluation Re-evaluation Note: 08/31/18 20:47 D/W DR Kendrick WEAVER WILL ADMIT 08/31/18 21:26 PS HO PRIOR TRANSFUSIONS, LAST 1 MO AGO. DENIES RECENT GI BLEEDING - Data Reviewed Data Reviewed: Lab, Diagnostic imaging, EKG, Old records Medical Decision Making Medical Decision Making: Plan: --Labs --CXR Disposition Counseled Patient/Family Regarding: Studies Performed, Diagnosis - Disposition Disposition: HOSPITALIZED Disposition Time: 20:47 Condition: SERIOUS - POA Present On Arrival: None - Clinical Impression Clinical Impression: Abdominal wall pain, Ascites, Severe anemia - Scribe Statement The provider has reviewed the documentation as recorded by the Robertibfernando Blake Provider Attestation: All medical record entries made by the Robertibe were at my direction and personal ly dictated by me. I have reviewed the chart and agree that the record accurately reflects my personal performance of the history, physical exam, medical decision making, and the department course for this patient. I have also personally directed, reviewed, and agree with the discharge instructions and disposition.
[2018-08-31 21:11] LABS: MEAN CELL VOLUME 97.8 fL (80.0-94.0); MEAN CORPUSCULAR HEMOGLOBIN 31.3 pg (27.0-31.0); MEAN PLATELET VOLUME 9.4 fL (7.2-11.7); RBC 1.63 Mil/uL (4.40-5.90); RED CELL DISTRIBUTION WIDTH 18.1 % (11.5-14.5); WHITE BLOOD COUNT 4.8 K/uL (4.8-10.8)
[2018-08-31 21:13] LABS: INR 2.4; PROTHROMBIN TIME 26.2 SECONDS (9.7-12.2)
[2018-08-31 21:14] LABS: HEMOGLOBIN 5.1 g/dL (12.0-18.0)
[2018-08-31 21:38] LABS: ALB/GLOB RATIO 0.5 (1.0-2.1); ALBUMIN 2.1 g/dL (3.5-5.0); ALT/SGPT 31 U/L (21-72); AST/SGOT 60 U/L (17-59); BLOOD UREA NITROGEN 10 mg/dL (9-20); CALCIUM 7.1 mg/dl (8.6-10.4); GFR NON-AFRICAN AMERICAN > 60
[2018-08-31 22:04] LABS: BASO # 0.1 K/uL (0.0-0.2); EOS # 0.1 K/uL (0.0-0.7); LYMPH # 1.2 K/uL (1.0-4.3); MONO # 0.3 K/uL (0.0-0.8); NEUT # 3.2 K/uL (1.8-7.0)
[2018-09-01 07:20] LABS: MEAN CORPUSCULAR HGB CONC 33.8 g/dL (33.0-37.0); MEAN PLATELET VOLUME 8.8 fL (7.2-11.7)
[2018-09-01 07:26] LABS: MEAN CORPUSCULAR HEMOGLOBIN 31.9 pg (27.0-31.0); RBC 2.56 Mil/uL (4.40-5.90); RED CELL DISTRIBUTION WIDTH 16.8 % (11.5-14.5)
[2018-09-01 07:35] LABS: HEMOGLOBIN 8.1 g/dL (12.0-18.0); MEAN CELL VOLUME 94.4 fL (80.0-94.0)
--- NOTE | 2018-09-01 08:20 | RAD ---
Date of service: 08/31/2018 PROCEDURE: CHEST RADIOGRAPH, 1 VIEW HISTORY: SOB COMPARISON: 07/25/2018 FINDINGS: LUNGS: Clear right lung Coalescing bullous changes left upper lobe blend with left elsy bullous/ perihilar pleural thickening and traction bronchiectasis and similar left lung volume loss. Overall appearance similar. Clear left lung base. PLEURA: No complicating pneumothorax or pleural fluid seen. CARDIOVASCULAR: No aortic atherosclerotic calcification present. Normal. No pulmonary venous congestion suspect OSSEOUS STRUCTURES: No significant abnormalities. VISUALIZED UPPER ABDOMEN: Normal. OTHER FINDINGS: None. IMPRESSION: Stable chronic appearance to the coalescing bullous changes left upper lobe blend with left elsy bullous / perihilarpleural thickening and traction bronchiectasis and similar left lung volume loss. No complicating pneumothorax appreciated. Small air-fluid levels in some of the bulla are possible.
[2018-09-01] MEDS: Multiple Vitamins Tab PO SCH (09:28)
[2018-09-01] MEDS: Pantoprazole 40 mg EC Tab PO SCH (09:28)
[2018-09-01] MEDS ORDERED: Influenza Vaccine 60 MCG/0.5 ML SYR (3 yr & up) IM ONE (10:00)
[2018-09-01] MEDS ORDERED: Pneumococcal 23-Valent Vaccine IM ONE (10:00)
[2018-09-01] MEDS ORDERED: Enoxaparin 30 mg Syringe SC SCH (10:00)
[2018-09-01 10:24] LABS: EOS # 0.4 K/uL (0.0-0.7); LYMPH # 0.9 K/uL (1.0-4.3); MONO # 0.6 K/uL (0.0-0.8); NEUT # 4.2 K/uL (1.8-7.0)
--- NOTE | 2018-09-01 11:41 | CP.PCM.HP ---
Past Patient History - Infectious Disease Hx of Infectious Diseases: None - Past Medical History & Family History Past Medical History?: Yes - Past Social History Smoking Status: Never Smoked - CARDIAC Hx Hypertension: Yes (PORTAL) - PULMONARY Hx Respiratory Disorders: No - NEUROLOGICAL Hx Seizures: Yes - HEENT Hx HEENT Problems: No - RENAL Hx Chronic Kidney Disease: No - ENDOCRINE/METABOLIC Hx Endocrine Disorders: No - HEMATOLOGICAL/ONCOLOGICAL Hx Anemia: Yes - INTEGUMENTARY Hx Dermatological Problems: No - MUSCULOSKELETAL/RHEUMATOLOGICAL Hx Falls: No - GASTROINTESTINAL Hx Gastritis: Yes (+ H. PYLORII) - GENITOURINARY/GYNECOLOGICAL Hx Genitourinary Disorders: No - PSYCHIATRIC Hx Substance Use: No - SURGICAL HISTORY Hx Surgeries: Yes Other/Comment: Endoscopy - ANESTHESIA Hx Anesthesia: Yes Hx Anesthesia Reactions: No Meds Allergies/Adverse Reactions: Allergies Allergy/AdvReac Type Severity Reaction Status Date / Time No Known Allergies Allergy Verified 08/31/18 19:47 Physical Exam - Constitutional Appears: Well - Head Exam Head Exam: ATRAUMATIC, NORMAL INSPECTION, NORMOCEPHALIC - Eye Exam Eye Exam: EOMI, Normal appearance, PERRL Pupil Exam: NORMAL ACCOMODATION, PERRL - ENT Exam ENT Exam: Mucous Membranes Moist, Normal Exam - Neck Exam Neck exam: Positive for: Normal Inspection - Respiratory Exam Respiratory Exam: Decreased Breath Sounds - Cardiovascular Exam Cardiovascular Exam: REGULAR RHYTHM, +S1, +S2 - GI/Abdominal Exam GI & Abdominal Exam: Diminished Bowel Sounds, Soft - Rectal Exam Rectal Exam: Deferred Results - Vital Signs Recent Vital Signs: Last Vital Signs Temp 97.5 F L 09/01/18 07:41 Pulse 61 09/01/18 07:41 Resp 20 09/01/18 07:41 BP 115/70 09/01/18 09:29 Pulse Ox 100 09/01/18 07:41 - Labs Result Diagrams: 09/01/18 07:11 08/31/18 20:55 Labs: Laboratory Results - last 24 hr 08/31/18 08/31/18 08/31/18 20:55 20:55 20:55 WBC 4.8 RBC 1.63 L Hgb 5.1 L* D Hct 15.9 L MCV 97.8 H D MCH 31.3 H MCHC 32.0 L RDW 18.1 H Plt Count 63 L MPV 9.4 Neut % (Auto) 66.0 Lymph % (Auto) 24.0 [place] % (Auto) 7.0 Eos % (Auto) 2.0 Baso % (Auto) 1.0 Neut # (Auto) 3.2 Lymph # (Auto) 1.2 [place] # (Auto) 0.3 Eos # (Auto) 0.1 Baso # (Auto) 0.1 PT 26.2 H INR 2.4 APTT 47 H Sodium 133 Potassium 4.1 Chloride 109 H Carbon Dioxide 14 L Anion Gap 14 BUN 10 Creatinine 0.9 Est GFR ( Amer) > 60 Est GFR (Non-Af Amer) > 60 Random Glucose 90 Calcium 7.1 L Total Bilirubin 4.6 H AST 60 H D ALT 31 Alkaline Phosphatase 171 H D Total Protein 6.0 L Albumin 2.1 L D Globulin 3.9 Albumin/Globulin Ratio 0.5 L Blood Type Antibody Screen 08/31/18 09/01/18 21:43 07:11 WBC 6.0 RBC 2.56 L Hgb 8.1 L D Hct 24.1 L MCV 94.4 H D MCH 31.9 H MCHC 33.8 RDW 16.8 H Plt Count 74 L MPV 8.8 Neut % (Auto) 69.0 Lymph % (Auto) 15.0 L [place] % (Auto) 10.0 Eos % (Auto) 6.0 H Baso % (Auto) 0.0 Neut # (Auto) 4.2 Lymph # (Auto) 0.9 L [place] # (Auto) 0.6 Eos # (Auto) 0.4 Baso # (Auto) 0.0 PT INR APTT Sodium Potassium Chloride Carbon Dioxide Anion Gap BUN Creatinine Est GFR ( Amer) Est GFR (Non-Af Amer) Random Glucose Calcium Total Bilirubin AST ALT Alkaline Phosphatase Total Protein Albumin Globulin Albumin/Globulin Ratio Blood Type O POSITIVE Antibody Screen Negative
[2018-09-01] MEDS ORDERED: Pantoprazole 40 mg EC Tab PO SCH (12:45)
[2018-09-01] MEDS ORDERED: Home Med 1 UNIT (Multivitamin [Multivitamins] 1 EACH) PO SCH (12:45)
[2018-09-02] MEDS: Multiple Vitamins Tab PO SCH (09:29)
[2018-09-02] MEDS: Pantoprazole 40 mg EC Tab PO SCH (09:29)
--- NOTE | 2018-09-02 14:06 | CP.PCM.PN ---
Subjective - Date & Time of Evaluation Date of Evaluation: 09/02/18 Time of Evaluation: 09:30 - Subjective Subjective: clinically same Objective - Vital Signs/Intake and Output Vital Signs (last 24 hours): Temp Pulse Resp BP Pulse Ox 98 F 83 20 107/65 100 09/02/18 08:35 09/02/18 08:35 09/02/18 08:35 09/02/18 09:29 09/02/18 08:35 Intake and Output: 09/02/18 09/02/18 06:59 18:59 Intake Total 400 Balance 400 - Medications Medications: Current Medications Carvedilol (Coreg) 3.125 mg PO BID ON LICENSE OF [facility] Last Admin: 09/02/18 09:29 Dose: 3.125 mg Diphenhydramine HCl (Benadryl) 25 mg PO Q6 PRN PRN Reason: Itching / Pruritus Enoxaparin Sodium (Lovenox) 30 mg SC DAILY ON LICENSE OF [facility] Folic Acid (Folic Acid) 1 mg PO DAILY ON LICENSE OF [facility] Last Admin: 09/02/18 09:29 Dose: 1 mg Furosemide (Lasix) 20 mg PO DAILY ON LICENSE OF [facility] Last Admin: 09/02/18 09:29 Dose: 20 mg Lactulose (Enulose) 20 gm PO Q12 ON LICENSE OF [facility] Last Admin: 09/02/18 09:28 Dose: 20 gm Multivitamins (Hexavitamin) 1 tab PO DAILY ON LICENSE OF [facility] Last Admin: 09/02/18 09:29 Dose: 1 tab Pantoprazole Sodium (Protonix Ec Tab) 40 mg PO DAILY ON LICENSE OF [facility] Last Admin: 09/02/18 09:29 Dose: 40 mg Spironolactone (Aldactone) 100 mg PO DAILY ON LICENSE OF [facility] Last Admin: 09/02/18 09:29 Dose: 100 mg Thiamine HCl (Vitamin B1 Tab) 100 mg PO DAILY ON LICENSE OF [facility] Last Admin: 09/02/18 09:29 Dose: 100 mg - Labs Labs: 09/01/18 07:11 08/31/18 20:55 PT 26.2 SECONDS (9.7-12.2) H 08/31/18 20:55 INR 2.4 08/31/18 20:55 APTT 47 SECONDS (21-34) H 08/31/18 20:55 - Constitutional Appears: Well - Head Exam Head Exam: ATRAUMATIC, NORMAL INSPECTION, NORMOCEPHALIC - Eye Exam Eye Exam: EOMI, Normal appearance, PERRL Pupil Exam: NORMAL ACCOMODATION, PERRL - ENT Exam ENT Exam: Mucous Membranes Moist, Normal Exam - Neck Exam Neck Exam: Full ROM, Normal Inspection. absent: Lymphadenopathy - Respiratory Exam Respiratory Exam: Decreased Breath Sounds - Cardiovascular Exam Cardiovascular Exam: REGULAR RHYTHM, +S1, +S2 - GI/Abdominal Exam GI & Abdominal Exam: Soft, Diminished Bowel Sounds - Rectal Exam Rectal Exam: Deferred
[2018-09-02 14:12] LABS: BASO % 0.9 % (0.0-2.0); EOS # 0.3 K/uL (0.0-0.7); EOS % 5.4 % (0.0-4.0); HEMOGLOBIN 7.7 g/dL (12.0-18.0); LYMPH # 0.3 K/uL (1.0-4.3); LYMPH % 5.4 % (20.0-40.0); MEAN CELL VOLUME 95.5 fL (80.0-94.0); MEAN CORPUSCULAR HEMOGLOBIN 31.5 pg (27.0-31.0); MEAN CORPUSCULAR HGB CONC 32.9 g/dL (33.0-37.0); MEAN PLATELET VOLUME 9.2 fL (7.2-11.7); MONO # 0.5 K/uL (0.0-0.8); MONO % 10.3 % (0.0-10.0); NEUT # 4.1 K/uL (1.8-7.0); NRBC % 0.2 % (0.0-2.0); PLATELET COUNT 76 K/uL (130-400); RBC 2.45 Mil/uL (4.40-5.90); RED CELL DISTRIBUTION WIDTH 17.2 % (11.5-14.5); WHITE BLOOD COUNT 5.3 K/uL (4.8-10.8)
[2018-09-02 14:21] LABS: INR 2.2; PROTHROMBIN TIME 23.6 SECONDS (9.7-12.2)
[2018-09-02 14:45] LABS: BLOOD UREA NITROGEN 7 mg/dL (9-20); CALCIUM 7.4 mg/dl (8.6-10.4); GFR NON-AFRICAN AMERICAN > 60
[2018-09-02 14:57] LABS: EOSINOPHIL 1 % (0-4); LYMPHOCYTE 9 % (20-40); MONOCYTE 7 % (0-10); NEUTROPHIL 83 % (50-75); TOTAL CELLS COUNTED 100
[2018-09-02 14:58] LABS: ANISOCYTOSIS SLIGHT; PLATELET ESTIMATE DECREASED (NORMAL)
[2018-09-02 15:00] LABS: HYPOCHROMIC SLIGHT; POLYCHROMIC SLIGHT
[2018-09-03] MEDS: Pantoprazole 40 mg EC Tab PO SCH (09:28)
[2018-09-03] MEDS: Multiple Vitamins Tab PO SCH (09:28)
--- NOTE | 2018-09-03 19:35 | CP.PCM.PN ---
Subjective - Date & Time of Evaluation Date of Evaluation: 09/03/18 Time of Evaluation: 08:00 - Subjective Subjective: clinically same Objective - Vital Signs/Intake and Output Vital Signs (last 24 hours): Temp Pulse Resp BP Pulse Ox 98.6 F 78 20 102/60 98 09/03/18 16:26 09/03/18 16:26 09/03/18 16:26 09/03/18 16:26 09/03/18 16:26 - Medications Medications: Current Medications Carvedilol (Coreg) 3.125 mg PO BID [facility] Last Admin: 09/03/18 17:43 Dose: 3.125 mg Diphenhydramine HCl (Benadryl) 25 mg PO Q6 PRN PRN Reason: Itching / Pruritus Last Admin: 09/02/18 22:53 Dose: 25 mg Enoxaparin Sodium (Lovenox) 30 mg SC DAILY [facility] Folic Acid (Folic Acid) 1 mg PO DAILY [facility] Last Admin: 09/03/18 09:29 Dose: 1 mg Furosemide (Lasix) 20 mg PO DAILY [facility] Last Admin: 09/03/18 09:07 Dose: Not Given Ibuprofen (Motrin Tab) 400 mg PO Q8H PRN PRN Reason: pain Last Admin: 09/02/18 21:34 Dose: 400 mg Lactulose (Enulose) 20 gm PO Q12 [facility] Last Admin: 09/03/18 09:28 Dose: 20 gm Multivitamins (Hexavitamin) 1 tab PO DAILY [facility] Last Admin: 09/03/18 09:28 Dose: 1 tab Pantoprazole Sodium (Protonix Ec Tab) 40 mg PO DAILY [facility] Last Admin: 09/03/18 09:28 Dose: 40 mg Spironolactone (Aldactone) 100 mg PO DAILY [facility] Last Admin: 09/03/18 09:05 Dose: Not Given Thiamine HCl (Vitamin B1 Tab) 100 mg PO DAILY [facility] Last Admin: 09/03/18 09:28 Dose: 100 mg - Labs Labs: 09/02/18 14:07 09/02/18 14:07 PT 23.6 SECONDS (9.7-12.2) H 09/02/18 14:07 INR 2.2 09/02/18 14:07 APTT 47 SECONDS (21-34) H 09/02/18 14:07 - Constitutional Appears: Well - Head Exam Head Exam: ATRAUMATIC, NORMAL INSPECTION, NORMOCEPHALIC - Eye Exam Eye Exam: EOMI, Normal appearance, PERRL Pupil Exam: NORMAL ACCOMODATION, PERRL - ENT Exam ENT Exam: Mucous Membranes Moist, Normal Exam - Neck Exam Neck Exam: Full ROM, Normal Inspection. absent: Lymphadenopathy - Respiratory Exam Respiratory Exam: Decreased Breath Sounds - Cardiovascular Exam Cardiovascular Exam: REGULAR RHYTHM, +S1, +S2 - GI/Abdominal Exam GI & Abdominal Exam: Soft, Diminished Bowel Sounds - Rectal Exam Rectal Exam: Deferred
[2018-09-04] MEDS: Multiple Vitamins Tab PO SCH (09:46)
[2018-09-04] MEDS: Pantoprazole 40 mg EC Tab PO SCH (09:46)
[2018-09-04 11:41] LABS: BASO # 0.1 K/uL (0.0-0.2); MEAN CORPUSCULAR HGB CONC 33.4 g/dL (33.0-37.0); MEAN PLATELET VOLUME 8.8 fL (7.2-11.7); WHITE BLOOD COUNT 4.7 K/uL (4.8-10.8)
[2018-09-04 11:42] LABS: INR 2.3; PROTHROMBIN TIME 24.7 SECONDS (9.7-12.2)
[2018-09-04 11:48] LABS: MEAN CORPUSCULAR HEMOGLOBIN 31.2 pg (27.0-31.0); RBC 2.03 Mil/uL (4.40-5.90); RED CELL DISTRIBUTION WIDTH 16.9 % (11.5-14.5)
[2018-09-04 11:50] LABS: BASO % 1.6 % (0.0-2.0); EOS % 5.6 % (0.0-4.0); HEMOGLOBIN 6.3 g/dL (12.0-18.0); LYMPH % 12.7 % (20.0-40.0); MONO % 12.6 % (0.0-10.0); NEUT % 67.5 % (50.0-75.0)
[2018-09-04 11:51] LABS: EOS # 0.3 K/uL (0.0-0.7); LYMPH # 0.6 K/uL (1.0-4.3); MEAN CELL VOLUME 93.3 fL (80.0-94.0); MONO # 0.6 K/uL (0.0-0.8); NEUT # 3.2 K/uL (1.8-7.0)
--- NOTE | 2018-09-04 17:17 | CP.PCM.PN ---
Subjective - Date & Time of Evaluation Date of Evaluation: 09/04/18 Time of Evaluation: 07:30 - Subjective Subjective: clinically same Objective - Vital Signs/Intake and Output Vital Signs (last 24 hours): Temp Pulse Resp BP Pulse Ox 98.0 F 81 20 100/65 100 09/04/18 16:31 09/04/18 16:31 09/04/18 16:31 09/04/18 16:31 09/04/18 16:31 Intake and Output: 09/04/18 09/04/18 06:59 18:59 Intake Total 300 400 Output Total 500 Balance -200 400 - Medications Medications: Current Medications Carvedilol (Coreg) 3.125 mg PO BID [facility] Last Admin: 09/04/18 09:46 Dose: 3.125 mg Diphenhydramine HCl (Benadryl) 25 mg PO Q6 PRN PRN Reason: Itching / Pruritus Last Admin: 09/03/18 22:46 Dose: 25 mg Enoxaparin Sodium (Lovenox) 30 mg SC DAILY [facility] Folic Acid (Folic Acid) 1 mg PO DAILY [facility] Last Admin: 09/04/18 09:46 Dose: 1 mg Furosemide (Lasix) 20 mg PO DAILY [facility] Last Admin: 09/04/18 09:46 Dose: 20 mg Ibuprofen (Motrin Tab) 400 mg PO Q8H PRN PRN Reason: pain Last Admin: 09/02/18 21:34 Dose: 400 mg Lactulose (Enulose) 20 gm PO Q12 [facility] Last Admin: 09/04/18 09:46 Dose: 20 gm Multivitamins (Hexavitamin) 1 tab PO DAILY [facility] Last Admin: 09/04/18 09:46 Dose: 1 tab Pantoprazole Sodium (Protonix Ec Tab) 40 mg PO DAILY [facility] Last Admin: 09/04/18 09:46 Dose: 40 mg Spironolactone (Aldactone) 100 mg PO DAILY [facility] Last Admin: 09/04/18 09:46 Dose: 100 mg Thiamine HCl (Vitamin B1 Tab) 100 mg PO DAILY [facility] Last Admin: 09/04/18 09:46 Dose: 100 mg - Labs Labs: 09/04/18 11:18 09/02/18 14:07 PT 24.7 SECONDS (9.7-12.2) H 09/04/18 11:18 INR 2.3 09/04/18 11:18 APTT 47 SECONDS (21-34) H 09/02/18 14:07 - Constitutional Appears: Well - Head Exam Head Exam: ATRAUMATIC, NORMAL INSPECTION, NORMOCEPHALIC - Eye Exam Eye Exam: EOMI, Normal appearance, PERRL Pupil Exam: NORMAL ACCOMODATION, PERRL - ENT Exam ENT Exam: Mucous Membranes Moist, Normal Exam - Neck Exam Neck Exam: Full ROM, Normal Inspection. absent: Lymphadenopathy - Respiratory Exam Respiratory Exam: Decreased Breath Sounds - Cardiovascular Exam Cardiovascular Exam: REGULAR RHYTHM, +S1, +S2 - GI/Abdominal Exam GI & Abdominal Exam: Soft, Diminished Bowel Sounds - Rectal Exam Rectal Exam: Deferred
[2018-09-05] MEDS: Pantoprazole 40 mg EC Tab PO SCH (09:28)
[2018-09-05] MEDS: Multiple Vitamins Tab PO SCH (09:28)
--- NOTE | 2018-09-05 11:17 | CP.PCM.PN ---
Subjective - Date & Time of Evaluation Date of Evaluation: 09/05/18 Time of Evaluation: 07:30 - Subjective Subjective: clinically same Objective - Vital Signs/Intake and Output Vital Signs (last 24 hours): Temp Pulse Resp BP Pulse Ox 98.2 F 81 20 103/60 99 09/05/18 07:43 09/05/18 07:43 09/05/18 07:43 09/05/18 09:28 09/05/18 07:43 Intake and Output: 09/05/18 09/05/18 06:59 18:59 Intake Total 1850 Output Total 500 Balance 1350 - Medications Medications: Current Medications Acetaminophen (Tylenol 325mg Tab) 650 mg PO Q12 PRN PRN Reason: Pain, moderate (4-7) Carvedilol (Coreg) 3.125 mg PO BID [facility] Last Admin: 09/05/18 09:29 Dose: Not Given Diphenhydramine HCl (Benadryl) 25 mg PO Q6 PRN PRN Reason: Itching / Pruritus Last Admin: 09/04/18 21:26 Dose: 25 mg Enoxaparin Sodium (Lovenox) 30 mg SC DAILY [facility] Folic Acid (Folic Acid) 1 mg PO DAILY [facility] Last Admin: 09/05/18 09:28 Dose: 1 mg Furosemide (Lasix) 20 mg PO DAILY [facility] Last Admin: 09/05/18 09:28 Dose: 20 mg Lactulose (Enulose) 20 gm PO Q12 [facility] Last Admin: 09/05/18 09:28 Dose: 20 gm Multivitamins (Hexavitamin) 1 tab PO DAILY [facility] Last Admin: 09/05/18 09:28 Dose: 1 tab Pantoprazole Sodium (Protonix Ec Tab) 40 mg PO DAILY [facility] Last Admin: 09/05/18 09:28 Dose: 40 mg Spironolactone (Aldactone) 100 mg PO DAILY [facility] Last Admin: 09/05/18 09:29 Dose: 100 mg Thiamine HCl (Vitamin B1 Tab) 100 mg PO DAILY [facility] Last Admin: 09/05/18 09:28 Dose: 100 mg - Labs Labs: 09/04/18 11:18 09/02/18 14:07 PT 24.7 SECONDS (9.7-12.2) H 09/04/18 11: INR 2.3 09/04/18 11:18 APTT 47 SECONDS (21-34) H 09/02/18 14:07 - Constitutional Appears: Well - Head Exam Head Exam: ATRAUMATIC, NORMAL INSPECTION, NORMOCEPHALIC - Eye Exam Eye Exam: EOMI, Normal appearance, PERRL Pupil Exam: NORMAL ACCOMODATION, PERRL - ENT Exam ENT Exam: Mucous Membranes Moist, Normal Exam - Neck Exam Neck Exam: Full ROM, Normal Inspection. absent: Lymphadenopathy - Respiratory Exam Respiratory Exam: Decreased Breath Sounds - Cardiovascular Exam Cardiovascular Exam: REGULAR RHYTHM, +S1, +S2 - GI/Abdominal Exam GI & Abdominal Exam: Soft, Diminished Bowel Sounds - Rectal Exam Rectal Exam: Deferred
[2018-09-05 11:22] LABS: BASO # 0.1 K/uL (0.0-0.2); EOS # 0.2 K/uL (0.0-0.7); LYMPH # 1.9 K/uL (1.0-4.3); LYMPH % 38.4 % (20.0-40.0); MEAN CORPUSCULAR HEMOGLOBIN 31.1 pg (27.0-31.0); MEAN CORPUSCULAR HGB CONC 34.2 g/dL (33.0-37.0); MONO # 0.5 K/uL (0.0-0.8); MONO % 9.3 % (0.0-10.0); NEUT # 2.4 K/uL (1.8-7.0); NEUT % 47.3 % (50.0-75.0); NRBC % 0.2 % (0.0-2.0); RBC 3.01 Mil/uL (4.40-5.90); RED CELL DISTRIBUTION WIDTH 17.1 % (11.5-14.5)
[2018-09-05 11:36] LABS: HEMOGLOBIN 9.4 g/dL (12.0-18.0); MEAN CELL VOLUME 91.1 fL (80.0-94.0)
[2018-09-05 11:47] LABS: BLOOD UREA NITROGEN 10 mg/dL (9-20); CALCIUM 7.3 mg/dl (8.6-10.4); GFR NON-AFRICAN AMERICAN > 60
--- NOTE | 2018-09-05 11:47 | CP.PCM.CON ---
<AdriatylerparkPaul - Last Filed: 09/05/18 12:50> History of Present Illness - History of Present Illness History of Present Illness: GI Fellow PGY4, Consult note. Landy Mendoza, 43M, Hx of decompensated alcoholic cirrhosis and ascites, presenting with abdominal distension 08/31/18. On presentation he had anemia of hb 5.1. He was given 3u pRBCs since admission. Hb now 6.3. Today, he states he has been having black-red BMs for 1 week. No hematemesis. He does not know what medications he is taking at home. He states his gives the medications to him. Patient is mostly concerned about abdominal distension, states it is getting worse. He cannot quantify the amount of fluid he drinks per day but he avoids salt. He states he is taking diuretics and urine is clear. EGD 12/28 with esophagitis, portal hypertensive gastropathy, erosive gastritis and duodenitis. 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 Past Patient History - Infectious Disease Hx of Infectious Diseases: None - Past Medical History & Family History Past Medical History?: Yes - Past Social History Smoking Status: Never Smoked - CARDIAC Hx Cardiac Disorders: Yes Hx Hypertension: Yes (PORTAL) - PULMONARY Hx Respiratory Disorders: No - NEUROLOGICAL Hx Neurological Disorder: Yes Hx Seizures: Yes - HEENT Hx HEENT Problems: No - RENAL Hx Chronic Kidney Disease: No - ENDOCRINE/METABOLIC Hx Endocrine Disorders: No - HEMATOLOGICAL/ONCOLOGICAL Hx Blood Disorders: Yes Hx Anemia: Yes - INTEGUMENTARY Hx Dermatological Problems: No - MUSCULOSKELETAL/RHEUMATOLOGICAL Hx Musculoskeletal Disorders: No Hx Falls: No - GASTROINTESTINAL Hx Gastrointestinal Disorders: Yes Hx Gastritis: Yes (+ H. PYLORII) - GENITOURINARY/GYNECOLOGICAL Hx Genitourinary Disorders: No - PSYCHIATRIC Hx Psychophysiologic Disorder: No Hx Substance Use: No - SURGICAL HISTORY Hx Surgeries: Yes Other/Comment: Endoscopy - ANESTHESIA Hx Anesthesia: Yes Hx Anesthesia Reactions: No Hx Malignant Hyperthermia: No Has any member of the family had a problem w/ anesthesia?: No Meds Allergies/Adverse Reactions: Allergies Allergy/AdvReac Type Severity Reaction Status Date / Time No Known Allergies Allergy Verified 08/31/18 19:47 - Medications Medications: Current Medications Acetaminophen (Tylenol 325mg Tab) 650 mg PO Q12 PRN PRN Reason: Pain, moderate (4-7) Carvedilol (Coreg) 3.125 mg PO BID [facility] Last Admin: 09/05/18 09:29 Dose: Not Given Diphenhydramine HCl (Benadryl) 25 mg PO Q6 PRN PRN Reason: Itching / Pruritus Last Admin: 09/04/18 21:26 Dose: 25 mg Enoxaparin Sodium (Lovenox) 30 mg SC DAILY [facility] Folic Acid (Folic Acid) 1 mg PO DAILY [facility] Last Admin: 09/05/18 09:28 Dose: 1 mg Furosemide (Lasix) 20 mg PO DAILY [facility] Last Admin: 09/05/18 09:28 Dose: 20 mg Lactulose (Enulose) 20 gm PO Q12 [facility] Last Admin: 09/05/18 09:28 Dose: 20 gm Multivitamins (Hexavitamin) 1 tab PO DAILY [facility] Last Admin: 09/05/18 09:28 Dose: 1 tab Pantoprazole Sodium (Protonix Ec Tab) 40 mg PO DAILY [facility] Last Admin: 09/05/18 09:28 Dose: 40 mg Spironolactone (Aldactone) 100 mg PO DAILY [facility] Last Admin: 09/05/18 09:29 Dose: 100 mg Thiamine HCl (Vitamin B1 Tab) 100 mg PO DAILY [facility] Last Admin: 09/05/18 09:28 Dose: 100 mg Physical Exam - Constitutional Appears: Non-toxic, No Acute Distress, Cachectic, Chronically Ill - Eye Exam Eye Exam: EOMI, Scleral icterus - ENT Exam ENT Exam: Mucous Membranes Moist, Normal Exam - Respiratory Exam Respiratory Exam: Clear to Auscultation Bilateral, NORMAL BREATHING PATTERN - Cardiovascular Exam Cardiovascular Exam: REGULAR RHYTHM, +S1, +S2 - GI/Abdominal Exam GI & Abdominal Exam: Distended, Firm, Normal Bowel Sounds. absent: Organomegaly, Tenderness Additional comments: + fluid wave - Rectal Exam Rectal Exam: NORMAL INSPECTION. absent: Black Stool, Bloody Stool - Extremities Exam Extremities exam: Positive for: pedal edema - Neurological Exam Neurological exam: Alert, CN II-XII Intact, Oriented x3 - Psychiatric Exam Psychiatric exam: Normal Affect, Normal Mood - Skin Skin Exam: Dry, Normal Color Results - Vital Signs Recent Vital Signs: Last Vital Signs Temp 98.2 F 09/05/18 07:43 Pulse 81 09/05/18 07:43 Resp 20 09/05/18 07:43 BP 103/60 09/05/18 09:28 Pulse Ox 99 09/05/18 07:43 - Labs Result Diagrams: 09/05/18 11:14 09/05/18 11:14 Labs: Laboratory Results - last 24 hr 09/04/18 09/04/18 09/05/18 11:18 13:52 07:30 WBC 4.7 L RBC 2.03 L Hgb 6.3 L* Hct 18.9 L MCV 93.3 D MCH 31.2 H MCHC 33.4 RDW 16.9 H Plt Count 60 L MPV 8.8 Neut % (Auto) 67.5 Lymph % (Auto) 12.7 L [place] % (Auto) 12.6 H Eos % (Auto) 5.6 H Baso % (Auto) 1.6 Neut # (Auto) 3.2 Lymph # (Auto) 0.6 L [place] # (Auto) 0.6 Eos # (Auto) 0.3 Baso # (Auto) 0.1 Stool Occult Blood Positive H Blood Type O POSITIVE Antibody Screen Negative 09/05/18 11:14 WBC 5.0 RBC 3.01 L Hgb 9.4 L D Hct 27.4 L MCV 91.1 D MCH 31.1 H MCHC 34.2 RDW 17.1 H Plt Count 53 L MPV 8.0 Neut % (Auto) 47.3 L Lymph % (Auto) 38.4 [place] % (Auto) 9.3 Eos % (Auto) 4.0 Baso % (Auto) 1.0 Neut # (Auto) 2.4 Lymph # (Auto) 1.9 [place] # (Auto) 0.5 Eos # (Auto) 0.2 Baso # (Auto) 0.1 Stool Occult Blood Blood Type Antibody Screen Assessment & Plan - Assessment and Plan (Free Text) Assessment: 43 year old male with PMH of decompensated alcoholic cirrhosis 2/2 HE/asc ites/variceal bleed s/p EVL 07/2017 and multiple prior upper GI bleeds 2/2 PUD/ Deborah-torrez tear [id number] presenting with abdominal distension. No prior colonoscopy. Plan: -MELD 25 -Last alcoholic drink was 2 months ago -Continue PPI in setting of possible GI bleed. Low suspicion of SBP at this time. -on Lasix 20mg, spironolactone 100mg, and coreg 3.125mg BID for portal hypertension. -continue Lactulose 20g BID, titrate to 2-3 BMs daily -continue Rifaximin -H/H transfusion goal 7, s/p 3U pRBCs -follow H/H trend -low salt diet -fluid restriction, strict I/Os -No signs of active GI bleed at this time, rectal exam negative. Possible EGD Friday to r/o GI bleed in high risk patient. -Recommend therapeutic paracentesis. INR is 2.4. He will need FFP prior to procedure. - Date & Time Date: 09/05/18 Time: 12:50 <Matthew Che - Last Filed: 09/06/18 11:37> Meds - Medications Medications: Current Medications Acetaminophen (Tylenol 325mg Tab) 650 mg PO Q12 PRN PRN Reason: Pain, moderate (4-7) Carvedilol (Coreg) 3.125 mg PO BID [facility] Last Admin: 09/05/18 09:29 Dose: Not Given Diphenhydramine HCl (Benadryl) 25 mg PO Q6 PRN PRN Reason: Itching / Pruritus Last Admin: 09/04/18 21:26 Dose: 25 mg Enoxaparin Sodium (Lovenox) 30 mg SC DAILY [facility] Folic Acid (Folic Acid) 1 mg PO DAILY [facility] Last Admin: 09/05/18 09:28 Dose: 1 mg Furosemide (Lasix) 20 mg PO DAILY [facility] Last Admin: 09/05/18 09:28 Dose: 20 mg Lactulose (Enulose) 20 gm PO Q12 [facility] Last Admin: 09/05/18 09:28 Dose: 20 gm Multivitamins (Hexavitamin) 1 tab PO DAILY [facility] Last Admin: 09/05/18 09:28 Dose: 1 tab Pantoprazole Sodium (Protonix Ec Tab) 40 mg PO DAILY [facility] Last Admin: 09/05/18 09:28 Dose: 40 mg Spironolactone (Aldactone) 100 mg PO DAILY [facility] Last Admin: 09/05/18 09:29 Dose: 100 mg Thiamine HCl (Vitamin B1 Tab) 100 mg PO DAILY [facility] Last Admin: 09/05/18 09:28 Dose: 100 mg Results - Vital Signs Recent Vital Signs: Last Vital Signs Temp 98.2 F 09/05/18 07:43 Pulse 81 09/05/18 07:43 Resp 20 09/05/18 07:43 BP 103/60 09/05/18 09:28 Pulse Ox 99 09/05/18 07:43 - Labs Result Diagrams: 09/05/18 11:14 09/05/18 11:14 Labs: Laboratory Results - last 24 hr 09/04/18 09/05/18 09/05/18 13:52 07:30 11:14 WBC 5.0 RBC 3.01 L Hgb 9.4 L D Hct 27.4 L MCV 91.1 D MCH 31.1 H MCHC 34.2 RDW 17.1 H Plt Count 53 L MPV 8.0 Neut % (Auto) 47.3 L Lymph % (Auto) 38.4 [place] % (Auto) 9.3 Eos % (Auto) 4.0 Baso % (Auto) 1.0 Neut # (Auto) 2.4 Lymph # (Auto) 1.9 [place] # (Auto) 0.5 Eos # (Auto) 0.2 Baso # (Auto) 0.1 Sodium Potassium Chloride Carbon Dioxide Anion Gap BUN Creatinine Est GFR ( Amer) Est GFR (Non-Af Amer) Random Glucose Calcium Magnesium Stool Occult Blood Positive H Blood Type O POSITIVE Antibody Screen Negative 09/05/18 11:14 WBC RBC Hgb Hct MCV MCH MCHC RDW Plt Count MPV Neut % (Auto) Lymph % (Auto) [place] % (Auto) Eos % (Auto) Baso % (Auto) Neut # (Auto) Lymph # (Auto) [place] # (Auto) Eos # (Auto) Baso # (Auto) Sodium 132 Potassium 4.0 Chloride 105 Carbon Dioxide 18 L Anion Gap 13 BUN 10 Creatinine 0.9 Est GFR ( Amer) > 60 Est GFR (Non-Af Amer) > 60 Random Glucose 166 H Calcium 7.3 L Magnesium 1.6 Stool Occult Blood Blood Type Antibody Screen Attending/Attestation - Attestation I have personally seen and examined this patient.: Yes I have fully participated in the care of the patient.: Yes I have reviewed all pertinent clinical information: Yes Notes (Text): 09/05/18 13:15 The pt was seen and examined. Chart reviewed. Assessment, findings and recommendations as documented above were discussed with Dr. Stark. INR ~ 1.5 for EGD
[2018-09-06] MEDS: Pantoprazole 40 mg EC Tab PO SCH (09:31)
[2018-09-06] MEDS: Multiple Vitamins Tab PO SCH (09:43)
--- NOTE | 2018-09-06 12:21 | CP.PCM.PN ---
<Paul Stark - Last Filed: 09/06/18 12:17> Subjective - Date & Time of Evaluation Date of Evaluation: 09/06/18 Time of Evaluation: 12:17 - Subjective Subjective: patient still with abdominal distension. Discussed with nursing and no signs of bleeding. Managemet fo paracentesis tomorrow coordinated with nurse. Objective - Vital Signs/Intake and Output Vital Signs (last 24 hours): Temp Pulse Resp BP Pulse Ox 98.3 F 90 20 110/65 98 09/06/18 07:55 09/06/18 07:55 09/06/18 07:55 09/06/18 09:30 09/06/18 07:55 Intake and Output: 09/06/18 09/06/18 06:59 18:59 Intake Total 33 Output Total 350 Balance -317 - Medications Medications: Current Medications Acetaminophen (Tylenol 325mg Tab) 650 mg PO Q12 PRN PRN Reason: Pain, moderate (4-7) Carvedilol (Coreg) 3.125 mg PO BID [facility] Last Admin: 09/06/18 09:30 Dose: 3.125 mg Diphenhydramine HCl (Benadryl) 25 mg PO Q6 PRN PRN Reason: Itching / Pruritus Last Admin: 09/05/18 23:28 Dose: 25 mg Enoxaparin Sodium (Lovenox) 30 mg SC DAILY [facility] Folic Acid (Folic Acid) 1 mg PO DAILY [facility] Last Admin: 09/06/18 09:31 Dose: 1 mg Furosemide (Lasix) 20 mg PO DAILY [facility] Last Admin: 09/06/18 09:30 Dose: 20 mg Lactulose (Enulose) 20 gm PO Q12 [facility] Last Admin: 09/06/18 09:30 Dose: 20 gm Multivitamins (Hexavitamin) 1 tab PO DAILY [facility] Last Admin: 09/06/18 09:43 Dose: 1 tab Pantoprazole Sodium (Protonix Ec Tab) 40 mg PO DAILY [facility] Last Admin: 09/06/18 09:31 Dose: 40 mg Rifaximin (Xifaxan) 550 mg PO BID [facility]; Protocol Last Admin: 09/06/18 09:31 Dose: 550 mg Spironolactone (Aldactone) 100 mg PO DAILY [facility] Last Admin: 09/06/18 09:31 Dose: 100 mg Thiamine HCl (Vitamin B1 Tab) 100 mg PO DAILY [facility] Last Admin: 09/06/18 09:31 Dose: 100 mg - Labs Labs: 09/05/18 11:14 09/05/18 11:14 PT 24.7 SECONDS (9.7-12.2) H 09/04/18 11:18 INR 2.3 09/04/18 11:18 APTT 47 SECONDS (21-34) H 09/02/18 14:07 - Constitutional Appears: Non-toxic, No Acute Distress, Cachectic, Chronically Ill - Head Exam Head Exam: NORMAL INSPECTION - Eye Exam Eye Exam: EOMI, Normal appearance - ENT Exam ENT Exam: Mucous Membranes Moist - Respiratory Exam Respiratory Exam: Clear to Ausculation Bilateral, NORMAL BREATHING PATTERN - Cardiovascular Exam Cardiovascular Exam: REGULAR RHYTHM, +S1, +S2 - GI/Abdominal Exam GI & Abdominal Exam: Distended, Firm, Normal Bowel Sounds. 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 No prior colonoscopy. Plan: -MELD 25 -Last alcoholic drink was 2 months ago -Continue PPI in setting of possible GI bleed. Low suspicion of SBP at this time. -on Lasix 20mg, spironolactone 100mg, and coreg 3.125mg BID for portal hypertension. -continue Lactulose 20g BID, titrate to 2-3 BMs daily -continue Rifaximin -H/H transfusion goal 7, s/p 3U pRBCs -follow H/H trend -low salt diet -fluid restriction, strict I/Os -No signs of active GI bleed at this time, rectal exam negative. Possible EGD Friday/Friday to r/o GI bleed in high risk patient. -Recommend therapeutic paracentesis. INR is 2.4. He will need FFP prior to procedure. -2u FFP ordered, 1u PLTs ordered. Check labs in AM. I will give IV lasix with blood products to avoid overload. -Consult IR for paracentesis. -Discussed plan with nurse -NPO after MN. -Gram stain, cell count, culture ordered <Matthew Che - Last Filed: 09/06/18 13:03> Objective - Vital Signs/Intake and Output Vital Signs (last 24 hours): Temp Pulse Resp BP Pulse Ox 98.3 F 90 20 110/65 98 09/06/18 07:55 09/06/18 07:55 09/06/18 07:55 09/06/18 09:30 09/06/18 07:55 Intake and Output: 09/06/18 09/06/18 06:59 18:59 Intake Total 33 Output Total 350 Balance -317 - Medications Medications: Current Medications Acetaminophen (Tylenol 325mg Tab) 650 mg PO Q12 PRN PRN Reason: Pain, moderate (4-7) Carvedilol (Coreg) 3.125 mg PO BID [facility] Last Admin: 09/06/18 09:30 Dose: 3.125 mg Diphenhydramine HCl (Benadryl) 25 mg PO Q6 PRN PRN Reason: Itching / Pruritus Last Admin: 09/05/18 23:28 Dose: 25 mg Enoxaparin Sodium (Lovenox) 30 mg SC DAILY [facility] Folic Acid (Folic Acid) 1 mg PO DAILY [facility] Last Admin: 09/06/18 09:31 Dose: 1 mg Furosemide (Lasix) 20 mg PO DAILY [facility] Last Admin: 09/06/18 09:30 Dose: 20 mg Furosemide (Lasix) 20 mg IVP ONCE ONE Stop: 09/06/18 22:01 Lactulose (Enulose) 20 gm PO Q12 [facility] Last Admin: 09/06/18 09:30 Dose: 20 gm Multivitamins (Hexavitamin) 1 tab PO DAILY [facility] Last Admin: 09/06/18 09:43 Dose: 1 tab Pantoprazole Sodium (Protonix Ec Tab) 40 mg PO DAILY [facility] Last Admin: 09/06/18 09:31 Dose: 40 mg Rifaximin (Xifaxan) 550 mg PO BID [facility]; Protocol Last Admin: 09/06/18 09:31 Dose: 550 mg Spironolactone (Aldactone) 100 mg PO DAILY [facility] Last Admin: 09/06/18 09:31 Dose: 100 mg Thiamine HCl (Vitamin B1 Tab) 100 mg PO DAILY [facility] Last Admin: 09/06/18 09:31 Dose: 100 mg - Labs Labs: 09/05/18 11:14 09/05/18 11:14 PT 24.7 SECONDS (9.7-12.2) H 09/04/18 11:18 INR 2.3 09/04/18 11:18 APTT 47 SECONDS (21-34) H 09/02/18 14:07 Attending/Attestation - Attestation I have personally seen and examined this patient.: Yes I have fully participated in the care of the patient.: Yes I have reviewed all pertinent clinical information, including history, physical exam and plan: Yes Notes (Text): 09/06/18 13:03 The pt was seen, examined and discussed with Dr. Stark. Findings, assessm ent and recommendations above.
--- NOTE | 2018-09-06 17:19 | CP.PCM.PN ---
Subjective - Date & Time of Evaluation Date of Evaluation: 09/06/18 Time of Evaluation: 07:30 - Subjective Subjective: clinically same Objective - Vital Signs/Intake and Output Vital Signs (last 24 hours): Temp Pulse Resp BP Pulse Ox 98.3 F 90 20 110/65 98 09/06/18 07:55 09/06/18 07:55 09/06/18 07:55 09/06/18 09:30 09/06/18 07:55 Intake and Output: 09/06/18 09/06/18 06:59 18:59 Intake Total 33 Output Total 350 Balance -317 - Medications Medications: Current Medications Acetaminophen (Tylenol 325mg Tab) 650 mg PO Q12 PRN PRN Reason: Pain, moderate (4-7) Carvedilol (Coreg) 3.125 mg PO BID [facility] Last Admin: 09/06/18 09:30 Dose: 3.125 mg Diphenhydramine HCl (Benadryl) 25 mg PO Q6 PRN PRN Reason: Itching / Pruritus Last Admin: 09/05/18 23:28 Dose: 25 mg Enoxaparin Sodium (Lovenox) 30 mg SC DAILY [facility] Folic Acid (Folic Acid) 1 mg PO DAILY [facility] Last Admin: 09/06/18 09:31 Dose: 1 mg Furosemide (Lasix) 20 mg PO DAILY [facility] Last Admin: 09/06/18 09:30 Dose: 20 mg Furosemide (Lasix) 20 mg IVP ONCE ONE Stop: 09/06/18 22:01 Lactulose (Enulose) 20 gm PO Q12 [facility] Last Admin: 09/06/18 09:30 Dose: 20 gm Multivitamins (Hexavitamin) 1 tab PO DAILY [facility] Last Admin: 09/06/18 09:43 Dose: 1 tab Pantoprazole Sodium (Protonix Ec Tab) 40 mg PO DAILY [facility] Last Admin: 09/06/18 09:31 Dose: 40 mg Rifaximin (Xifaxan) 550 mg PO BID [facility]; Protocol Last Admin: 09/06/18 09:31 Dose: 550 mg Spironolactone (Aldactone) 100 mg PO DAILY [facility] Last Admin: 09/06/18 09:31 Dose: 100 mg Thiamine HCl (Vitamin B1 Tab) 100 mg PO DAILY [facility] Last Admin: 09/06/18 09:31 Dose: 100 mg - Labs Labs: 09/05/18 11:14 09/05/18 11:14 PT 24.7 SECONDS (9.7-12.2) H 09/04/18 11:18 INR 2.3 09/04/18 11:18 APTT 47 SECONDS (21-34) H 09/02/18 14:07 - Constitutional Appears: Well - Head Exam Head Exam: ATRAUMATIC, NORMAL INSPECTION, NORMOCEPHALIC - Eye Exam Eye Exam: EOMI, Normal appearance, PERRL Pupil Exam: NORMAL ACCOMODATION, PERRL - ENT Exam ENT Exam: Mucous Membranes Moist, Normal Exam - Neck Exam Neck Exam: Full ROM, Normal Inspection. absent: Lymphadenopathy - Respiratory Exam Respiratory Exam: Decreased Breath Sounds - Cardiovascular Exam Cardiovascular Exam: REGULAR RHYTHM, +S1, +S2 - GI/Abdominal Exam GI & Abdominal Exam: Soft, Diminished Bowel Sounds - Rectal Exam Rectal Exam: Deferred
[2018-09-07 08:31] LABS: INR 1.8; PROTHROMBIN TIME 20.2 SECONDS (9.7-12.2)
[2018-09-07 08:36] LABS: HEMOGLOBIN 7.5 g/dL (12.0-18.0); MEAN CELL VOLUME 90.8 fL (80.0-94.0); MEAN CORPUSCULAR HEMOGLOBIN 30.9 pg (27.0-31.0); MEAN PLATELET VOLUME 7.9 fL (7.2-11.7); RBC 2.43 Mil/uL (4.40-5.90); RED CELL DISTRIBUTION WIDTH 16.6 % (11.5-14.5); WHITE BLOOD COUNT 3.6 K/uL (4.8-10.8)
[2018-09-07 08:47] LABS: ALB/GLOB RATIO 0.7 (1.0-2.1); ALBUMIN 2.4 g/dL (3.5-5.0); ALT/SGPT 33 U/L (21-72); AST/SGOT 50 U/L (17-59); BLOOD UREA NITROGEN 9 mg/dL (9-20); CALCIUM 7.8 mg/dl (8.6-10.4); GFR NON-AFRICAN AMERICAN > 60
--- NOTE | 2018-09-07 09:19 | CP.PCM.PN ---
<Paul Stark - Last Filed: 09/07/18 09:45> Subjective - Date & Time of Evaluation Date of Evaluation: 09/07/18 Time of Evaluation: 09:15 - Subjective Subjective: Patient successfully transfused 2u FFP and 1u plt last night. No complaints. 1 water BM today. No blood. NPO. Objective - Vital Signs/Intake and Output Vital Signs (last 24 hours): Temp Pulse Resp BP Pulse Ox 98.5 F 94 H 18 102/69 100 09/07/18 06:15 09/07/18 06:15 09/07/18 06:15 09/07/18 06:15 09/07/18 00:00 Intake and Output: 09/07/18 09/07/18 06:59 18:59 Intake Total 512 Output Total 200 Balance 312 - Medications Medications: Current Medications Acetaminophen (Tylenol 325mg Tab) 650 mg PO Q12 PRN PRN Reason: Pain, moderate (4-7) Last Admin: 09/07/18 01:24 Dose: 650 mg Carvedilol (Coreg) 3.125 mg PO BID [facility] Last Admin: 09/06/18 18:31 Dose: 3.125 mg Diphenhydramine HCl (Benadryl) 25 mg PO Q6 PRN PRN Reason: Itching / Pruritus Last Admin: 09/07/18 01:25 Dose: 25 mg Enoxaparin Sodium (Lovenox) 30 mg SC DAILY [facility] Folic Acid (Folic Acid) 1 mg PO DAILY [facility] Last Admin: 09/06/18 09:31 Dose: 1 mg Furosemide (Lasix) 20 mg PO DAILY [facility] Last Admin: 09/06/18 09:30 Dose: 20 mg Lactulose (Enulose) 20 gm PO Q12 [facility] Last Admin: 09/06/18 22:32 Dose: 20 gm Multivitamins (Hexavitamin) 1 tab PO DAILY [facility] Last Admin: 09/06/18 09:43 Dose: 1 tab Pantoprazole Sodium (Protonix Ec Tab) 40 mg PO DAILY [facility] Last Admin: 09/06/18 09:31 Dose: 40 mg Rifaximin (Xifaxan) 550 mg PO BID [facility]; Protocol Last Admin: 09/06/18 18:31 Dose: 550 mg Spironolactone (Aldactone) 100 mg PO DAILY [facility] Last Admin: 09/06/18 09:31 Dose: 100 mg Thiamine HCl (Vitamin B1 Tab) 100 mg PO DAILY [facility] Last Admin: 09/06/18 09:31 Dose: 100 mg - Labs Labs: 09/07/18 08:16 09/07/18 08:16 PT 20.2 SECONDS (9.7-12.2) H 09/07/18 08:16 INR 1.8 D 09/07/18 08:16 APTT 47 SECONDS (21-34) H 09/02/18 14:07 - Constitutional Appears: Non-toxic, No Acute Distress, Chronically Ill - Head Exam Head Exam: ATRAUMATIC, NORMAL INSPECTION - Eye Exam Eye Exam: EOMI, Normal appearance - ENT Exam ENT Exam: Mucous Membranes Moist, Normal Exam - Respiratory Exam Respiratory Exam: Clear to Ausculation Bilateral, NORMAL BREATHING PATTERN - Cardiovascular Exam Cardiovascular Exam: REGULAR RHYTHM, +S1, +S2 - GI/Abdominal Exam GI & Abdominal Exam: Distended, Firm, Normal Bowel Sounds. 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 No prior colonoscopy. Plan: -MELD 25 -Last alcoholic drink was 2 months ago -Continue PPI in setting of possible GI bleed. Low suspicion of SBP at this time. -on Lasix 20mg, spironolactone 100mg, and coreg 3.125mg BID for portal hy pertension. -continue Lactulose 20g BID, titrate to 2-3 BMs daily -continue Rifaximin -H/H transfusion goal 7, s/p 3U pRBCs -follow H/H trend -low salt diet -fluid restriction, strict I/Os -No signs of active GI bleed at this time, rectal exam negative. . -Recommend therapeutic paracentesis. s/p 2u FFP, 1u PLTs. Good results. Hopefully tap today. -Consult IR for paracentesis. -NPO -Gram stain, cell count, culture ordered -Plan for EGD today to r/o GI bleed in high risk patient with falling Hb <Danyel Martel Y - Last Filed: 09/07/18 09:54> Objective - Vital Signs/Intake and Output Vital Signs (last 24 hours): Temp Pulse Resp BP Pulse Ox 98.5 F 94 H 18 102/69 100 09/07/18 06:15 09/07/18 06:15 09/07/18 06:15 09/07/18 06:15 09/07/18 00:00 Intake and Output: 09/07/18 09/07/18 06:59 18:59 Intake Total 512 Output Total 200 Balance 312 - Medications Medications: Current Medications Acetaminophen (Tylenol 325mg Tab) 650 mg PO Q12 PRN PRN Reason: Pain, moderate (4-7) Last Admin: 09/07/18 01:24 Dose: 650 mg Carvedilol (Coreg) 3.125 mg PO BID [facility] Last Admin: 09/06/18 18:31 Dose: 3.125 mg Diphenhydramine HCl (Benadryl) 25 mg PO Q6 PRN PRN Reason: Itching / Pruritus Last Admin: 09/07/18 01:25 Dose: 25 mg Enoxaparin Sodium (Lovenox) 30 mg SC DAILY [facility] Folic Acid (Folic Acid) 1 mg PO DAILY [facility] Last Admin: 09/06/18 09:31 Dose: 1 mg Furosemide (Lasix) 20 mg PO DAILY [facility] Last Admin: 09/06/18 09:30 Dose: 20 mg Lactulose (Enulose) 20 gm PO Q12 [facility] Last Admin: 09/06/18 22:32 Dose: 20 gm Multivitamins (Hexavitamin) 1 tab PO DAILY [facility] Last Admin: 09/06/18 09:43 Dose: 1 tab Pantoprazole Sodium (Protonix Ec Tab) 40 mg PO DAILY [facility] Last Admin: 09/06/18 09:31 Dose: 40 mg Rifaximin (Xifaxan) 550 mg PO BID [facility]; Protocol Last Admin: 09/06/18 18:31 Dose: 550 mg Spironolactone (Aldactone) 100 mg PO DAILY [facility] Last Admin: 09/06/18 09:31 Dose: 100 mg Thiamine HCl (Vitamin B1 Tab) 100 mg PO DAILY [facility] Last Admin: 09/06/18 09:31 Dose: 100 mg - Labs Labs: 09/07/18 08:16 09/07/18 08:16 PT 20.2 SECONDS (9.7-12.2) H 09/07/18 08:16 INR 1.8 D 09/07/18 08:16 APTT 47 SECONDS (21-34) H 09/02/18 14:07 Attending/Attestation - Attestation I have personally seen and examined this patient.: Yes I have fully participated in the care of the patient.: Yes I have reviewed all pertinent clinical information, including history, physical exam and plan: Yes Notes (Text): 09/07/18 09:51 I have seen and examined patient with GI fellow. No acute events overnight, he is seen resting in bed comfortably. He reports ongoing abdominal distention, unchanged from yesterday. He denies nausea, vomiting, fever/chills, abdominal pain. Review of vitals from today shows tachycardia. Decompensated ETOH cirrhosis Ascites Anemia - NPO - Continue with PPI therapy - Patient planned for paracentesis today, follow up ascitic fluid results - Continue with lactulose/xifaxan regimen for HE prevention - Continue with diuretic therapy, monitor electrolytes - Given progressive anemia and prior history of varices, will plan for EGD today for further evaluation - Overall patient prognosis remains poor, will continue to monitor clinical course
[2018-09-07] MEDS: Multiple Vitamins Tab PO SCH (10:27)
[2018-09-07] MEDS: Pantoprazole 40 mg EC Tab PO SCH (10:27)
--- NOTE | 2018-09-07 12:16 | PCM.SURG1 ---
Surgeon's Initial Post Op Note - Surgeon's Notes Surgeon: Solo Joiner MD Cloud Developer: NONE Type of Anesthesia: Local Pre-Operative Diagnosis: Ascites, cirrhosis Operative Findings: US showed moderate ascites Post-Operative Diagnosis: Ascites, cirrhosis Operation Performed: US guided paracentesis Specimen/Specimens Removed: 2 liters of straw colored fluid Estimated Blood Loss: EBL {In ML}: 0 Blood Products Given: N/A Drains Used: No Drains Post-Op Condition: Fair Date of Surgery/Procedure: 09/07/18 Time of Surgery/Procedure: 11:40
--- NOTE | 2018-09-07 13:02 | US ---
Date of Procedure: 09/07/2018 PROCEDURE: Ultrasound-guided paracentesis, CPT 16339 Medications: 7 cc 1% Lidocaine HISTORY: Ascites, abdominal pain, cirrhosis TECHNIQUE: Following informed consent , the patient was placed supine on the stretcher and the site was marked. A limited abdominal ultrasound was performed that showed a large amount of intra-abdominal fluid. Procedural time out was called and the Pt's abdomen was marked and prepped and draped in the usual sterile fashion. Ultrasound-guided large volume paracentesis performed. A total of 2 liters of straw colored fluid was removed without complication. Fluid specimen was sent for culture, sensitivity, cytology and chemistries. IMPRESSION: Ultrasound-guided large volume paracentesis.
[2018-09-07] MEDS ORDERED: Midazolam 2 MG/2 ML VIAL ONE (13:25)
[2018-09-07] MEDS ORDERED: Propofol 10 mg/ml Inj (20 ML) ONE (13:25)
[2018-09-07 14:07] LABS: BODY FLUID TYPE PERITONEAL/ASCITES
[2018-09-07 14:53] VITALS: RESP 20
[2018-09-07 16:02] LABS: BF GROSS APPEARANCE SL CLOUDY (CLEAR)
[2018-09-07 16:03] LABS: BODY FLUID MONO/MACROPHAGE 11 % (0-0); BODY FLUID TOTAL COUNT 100 (0-0)
--- NOTE | 2018-09-07 23:46 | CP.PCM.PN ---
Subjective - Date & Time of Evaluation Date of Evaluation: 09/07/18 Time of Evaluation: 07:20 - Subjective Subjective: clinically same Objective - Vital Signs/Intake and Output Vital Signs (last 24 hours): Temp Pulse Resp BP Pulse Ox 97.4 F L 67 20 99/64 L 100 09/07/18 15:46 09/07/18 15:46 09/07/18 15:46 09/07/18 15:46 09/07/18 15:46 Intake and Output: 09/07/18 09/08/18 18:59 06:59 Intake Total 550 400 Output Total 500 Balance 550 -100 - Medications Medications: Current Medications Acetaminophen (Tylenol 325mg Tab) 650 mg PO Q12 PRN PRN Reason: Pain, moderate (4-7) Last Admin: 09/07/18 01:24 Dose: 650 mg Carvedilol (Coreg) 3.125 mg PO BID [facility] Last Admin: 09/07/18 17:37 Dose: Not Given Diphenhydramine HCl (Benadryl) 25 mg PO Q6 PRN PRN Reason: Itching / Pruritus Last Admin: 09/07/18 21:39 Dose: 25 mg Enoxaparin Sodium (Lovenox) 30 mg SC DAILY [facility] Folic Acid (Folic Acid) 1 mg PO DAILY [facility] Last Admin: 09/07/18 10:27 Dose: 1 mg Furosemide (Lasix) 20 mg PO DAILY [facility] Last Admin: 09/07/18 10:28 Dose: Not Given Lactulose (Enulose) 20 gm PO Q12 [facility] Last Admin: 09/07/18 21:34 Dose: 20 gm Multivitamins (Hexavitamin) 1 tab PO DAILY [facility] Last Admin: 09/07/18 10:27 Dose: 1 tab Pantoprazole Sodium (Protonix Inj) 40 mg IVP DAILY [facility] Last Admin: 09/07/18 14:57 Dose: Not Given Rifaximin (Xifaxan) 550 mg PO BID [facility]; Protocol Last Admin: 09/07/18 17:37 Dose: 550 mg Spironolactone (Aldactone) 100 mg PO DAILY [facility] Last Admin: 09/07/18 10:29 Dose: Not Given Thiamine HCl (Vitamin B1 Tab) 100 mg PO DAILY [facility] Last Admin: 09/07/18 10:30 Dose: 100 mg - Labs Labs: 09/07/18 08:16 09/07/18 08:16 PT 20.2 SECONDS (9.7-12.2) H 09/07/18 08:16 INR 1.8 D 09/07/18 08:16 APTT 47 SECONDS (21-34) H 09/02/18 14:07 - Constitutional Appears: Well - Head Exam Head Exam: ATRAUMATIC, NORMAL INSPECTION, NORMOCEPHALIC - Eye Exam Eye Exam: EOMI, Normal appearance, PERRL Pupil Exam: NORMAL ACCOMODATION, PERRL - ENT Exam ENT Exam: Mucous Membranes Moist, Normal Exam - Neck Exam Neck Exam: Full ROM, Normal Inspection. absent: Lymphadenopathy - Respiratory Exam Respiratory Exam: Decreased Breath Sounds - Cardiovascular Exam Cardiovascular Exam: REGULAR RHYTHM, +S1, +S2 - GI/Abdominal Exam GI & Abdominal Exam: Soft, Diminished Bowel Sounds - Rectal Exam Rectal Exam: Deferred
[2018-09-08 00:09] VITALS: TEMP 97.8
[2018-09-08 06:55] VITALS: PULSE 89; O2SAT 99
[2018-09-08 08:53] LABS: BASO % 0.6 % (0.0-2.0); EOS # 0.2 K/uL (0.0-0.7); EOS % 5.8 % (0.0-4.0); HEMOGLOBIN 8.5 g/dL (12.0-18.0); LYMPH # 1.1 K/uL (1.0-4.3); LYMPH % 34.1 % (20.0-40.0); MEAN CELL VOLUME 92.6 fL (80.0-94.0); MEAN CORPUSCULAR HEMOGLOBIN 30.6 pg (27.0-31.0); MEAN PLATELET VOLUME 8.2 fL (7.2-11.7); MONO # 0.3 K/uL (0.0-0.8); MONO % 8.6 % (0.0-10.0); NEUT # 1.6 K/uL (1.8-7.0); NEUT % 50.9 % (50.0-75.0); NRBC % 0.2 % (0.0-2.0); RBC 2.77 Mil/uL (4.40-5.90); WHITE BLOOD COUNT 3.2 K/uL (4.8-10.8)
[2018-09-08 09:07] LABS: GFR NON-AFRICAN AMERICAN > 60
[2018-09-08 09:13] LABS: BLOOD UREA NITROGEN 8 mg/dL (9-20); CALCIUM 7.6 mg/dl (8.6-10.4)
[2018-09-08] MEDS: Multiple Vitamins Tab PO SCH (10:06)
[2018-09-08 10:07] VITALS: BP 100/57
--- NOTE | 2018-09-08 10:13 | CP.PCM.PN ---
<AdriatylerparkPaul - Last Filed: 09/08/18 10:04> Subjective - Date & Time of Evaluation Date of Evaluation: 09/08/18 Time of Evaluation: 10:04 - Subjective Subjective: Patient is doing well this AM. He had 3 loose BMs lastnight. No fevers. No lightheadedness, abdominal pain. Objective - Vital Signs/Intake and Output Vital Signs (last 24 hours): Temp Pulse Resp BP Pulse Ox 97.8 F 89 20 104/65 99 09/08/18 00:02 09/08/18 05:30 09/08/18 05:30 09/08/18 05:30 09/08/18 05:30 Intake and Output: 09/08/18 09/08/18 06:59 18:59 Intake Total 700 Output Total 500 Balance 200 - Medications Medications: Current Medications Acetaminophen (Tylenol 325mg Tab) 650 mg PO Q12 PRN PRN Reason: Pain, moderate (4-7) Last Admin: 09/07/18 01:24 Dose: 650 mg Carvedilol (Coreg) 3.125 mg PO BID [facility] Last Admin: 09/07/18 17:37 Dose: Not Given Diphenhydramine HCl (Benadryl) 25 mg PO Q6 PRN PRN Reason: Itching / Pruritus Last Admin: 09/07/18 21:39 Dose: 25 mg Enoxaparin Sodium (Lovenox) 30 mg SC DAILY [facility] Folic Acid (Folic Acid) 1 mg PO DAILY [facility] Last Admin: 09/07/18 10:27 Dose: 1 mg Furosemide (Lasix) 20 mg PO DAILY [facility] Last Admin: 09/07/18 10:28 Dose: Not Given Lactulose (Enulose) 20 gm PO [facility] Multivitamins (Hexavitamin) 1 tab PO DAILY [facility] Last Admin: 09/07/18 10:27 Dose: 1 tab Pantoprazole Sodium (Protonix Inj) 40 mg IVP DAILY [facility] Last Admin: 09/07/18 14:57 Dose: Not Given Rifaximin (Xifaxan) 550 mg PO BID [facility]; Protocol Last Admin: 09/07/18 17:37 Dose: 550 mg Spironolactone (Aldactone) 100 mg PO DAILY [facility] Last Admin: 09/07/18 10:29 Dose: Not Given Thiamine HCl (Vitamin B1 Tab) 100 mg PO DAILY [facility] Last Admin: 09/07/18 10:30 Dose: 100 mg - Labs Labs: 09/08/18 08:45 09/08/18 08:45 PT 20.2 SECONDS (9.7-12.2) H 09/07/18 08:16 INR 1.8 D 09/07/18 08:16 APTT 47 SECONDS (21-34) H 09/02/18 14:07 - Constitutional Appears: Non-toxic, No Acute Distress - Head Exam Head Exam: ATRAUMATIC, NORMAL INSPECTION - Eye Exam Eye Exam: EOMI, Normal appearance - ENT Exam ENT Exam: Mucous Membranes Moist, Normal Exam - Respiratory Exam Respiratory Exam: Clear to Ausculation Bilateral, NORMAL BREATHING PATTERN - Cardiovascular Exam Cardiovascular Exam: REGULAR RHYTHM, +S1, +S2 - GI/Abdominal Exam GI & Abdominal Exam: Soft, Normal Bowel Sounds. 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 No prior colonoscopy. Plan: -EGD 09/07/18 with grade 1 varices. -Paracentesis 09/07/18, 2L removed, straw colored. Negative for SBP. -MELD 25 -Last alcoholic drink was 2-3 months ago -Continue PPI PO -on Lasix 20mg, spironolactone 100mg, and coreg 3.125mg BID for portal hypertension. -continue Lactulose 20g dailiy, titrate to 2-3 BMs daily -continue Rifaximin -H/H transfusion goal 7, s/p 3U pRBCs - s/p 2u FFP, 1u PLTs for procedures -low salt diet -fluid restriction, strict I/Os -OK to d/c from GI perspective. -Needs close f/u with outpt GI. -He will need liver transplant evaluation in 6 months if he can remain abstinent from alcohol. <Danyel Martel Y - Last Filed: 09/08/18 12:48> Objective - Vital Signs/Intake and Output Vital Signs (last 24 hours): Temp Pulse Resp BP Pulse Ox 97.8 F 89 20 100/57 L 99 09/08/18 00:02 09/08/18 05:30 09/08/18 05:30 09/08/18 10:06 09/08/18 05:30 Intake and Output: 09/08/18 09/08/18 06:59 18:59 Intake Total 700 Output Total 500 Balance 200 - Medications Medications: Current Medications Acetaminophen (Tylenol 325mg Tab) 650 mg PO Q12 PRN PRN Reason: Pain, moderate (4-7) Last Admin: 09/07/18 01:24 Dose: 650 mg Carvedilol (Coreg) 3.125 mg PO BID [facility] Last Admin: 09/08/18 10:06 Dose: 3.125 mg Diphenhydramine HCl (Benadryl) 25 mg PO Q6 PRN PRN Reason: Itching / Pruritus Last Admin: 09/07/18 21:39 Dose: 25 mg Enoxaparin Sodium (Lovenox) 30 mg SC DAILY [facility] Folic Acid (Folic Acid) 1 mg PO DAILY [facility] Last Admin: 09/08/18 10:06 Dose: 1 mg Furosemide (Lasix) 20 mg PO DAILY [facility] Last Admin: 09/08/18 10:06 Dose: 20 mg Lactulose (Enulose) 20 gm PO [facility] Multivitamins (Hexavitamin) 1 tab PO DAILY [facility] Last Admin: 09/08/18 10:06 Dose: 1 tab Pantoprazole Sodium (Protonix Inj) 40 mg IVP DAILY [facility] Last Admin: 09/08/18 10:07 Dose: 40 mg Rifaximin (Xifaxan) 550 mg PO BID [facility]; Protocol Last Admin: 09/08/18 10:06 Dose: 550 mg Spironolactone (Aldactone) 100 mg PO DAILY [facility] Last Admin: 09/08/18 10:06 Dose: 100 mg Thiamine HCl (Vitamin B1 Tab) 100 mg PO DAILY [facility] Last Admin: 09/08/18 10:06 Dose: 100 mg - Labs Labs: 09/08/18 08:45 09/08/18 08:45 PT 20.2 SECONDS (9.7-12.2) H 09/07/18 08:16 INR 1.8 D 09/07/18 08:16 APTT 47 SECONDS (21-34) H 09/02/18 14:07 Attending/Attestation - Attestation I have personally seen and examined this patient.: Yes I have fully participated in the care of the patient.: Yes I have reviewed all pertinent clinical information, including history, physical exam and plan: Yes Notes (Text): 09/08/18 12:45 I have seen and examined patient with GI fellow. No acute events overnight, he is seen resting in bed comfortably. He had two loose bowel movements overnight but denies abdominal pain, nausea, vomiting, fever/chills. Tolerating PO diet without difficulty. Review of vitals from today are normal. Decompensated ETOH cirrhosis Ascites Anemia - Low sodium diet as tolerated - Ascitic fluid shows no sign of SBP, continue with diuretic therapy and monitor electrolytes - H/H stable, continue to monitor. No signs of active bleeding on EGD yesterday. - Continue with lactulose for HE prevention - Encourage ongoing abstinence from ETOH, will eventually benefit from liver transplant evaluation at tertiary care facility - No further planned GI intervention, will sign off case. Please reconsult as necessary, thank you.
--- NOTE | 2018-09-08 11:53 | CP.PCM.PN ---
Subjective - Date & Time of Evaluation Date of Evaluation: 09/08/18 Time of Evaluation: 11:00 - Subjective Subjective: Patient seen today, states feels ok, denies any abdominal pain , N/V, tolerating diet , no melena reported hgb- stable - 8.5 today labs and vss- reviewed- mg- 1.5 - replaced Objective - Vital Signs/Intake and Output Vital Signs (last 24 hours): Temp Pulse Resp BP Pulse Ox 97.8 F 89 20 100/57 L 99 09/08/18 00:02 09/08/18 05:30 09/08/18 05:30 09/08/18 10:06 09/08/18 05:30 Intake and Output: 09/08/18 09/08/18 06:59 18:59 Intake Total 700 Output Total 500 Balance 200 - Medications Medications: Current Medications Acetaminophen (Tylenol 325mg Tab) 650 mg PO Q12 PRN PRN Reason: Pain, moderate (4-7) Last Admin: 09/07/18 01:24 Dose: 650 mg Carvedilol (Coreg) 3.125 mg PO BID [facility] Last Admin: 09/08/18 10:06 Dose: 3.125 mg Diphenhydramine HCl (Benadryl) 25 mg PO Q6 PRN PRN Reason: Itching / Pruritus Last Admin: 09/07/18 21:39 Dose: 25 mg Enoxaparin Sodium (Lovenox) 30 mg SC DAILY [facility] Folic Acid (Folic Acid) 1 mg PO DAILY [facility] Last Admin: 09/08/18 10:06 Dose: 1 mg Furosemide (Lasix) 20 mg PO DAILY [facility] Last Admin: 09/08/18 10:06 Dose: 20 mg Lactulose (Enulose) 20 gm PO [facility] Magnesium Oxide (Mag-Ox) 400 mg PO STAT [facility] Stop: 09/08/18 11:46 Multivitamins (Hexavitamin) 1 tab PO DAILY [facility] Last Admin: 09/08/18 10:06 Dose: 1 tab Pantoprazole Sodium (Protonix Inj) 40 mg IVP DAILY [facility] Last Admin: 09/08/18 10:07 Dose: 40 mg Rifaximin (Xifaxan) 550 mg PO BID [facility]; Protocol Last Admin: 09/08/18 10:06 Dose: 550 mg Spironolactone (Aldactone) 100 mg PO DAILY [facility] Last Admin: 09/08/18 10:06 Dose: 100 mg Thiamine HCl (Vitamin B1 Tab) 100 mg PO DAILY [facility] Last Admin: 09/08/18 10:06 Dose: 100 mg - Labs Labs: 09/08/18 08:45 09/08/18 08:45 PT 20.2 SECONDS (9.7-12.2) H 09/07/18 08:16 INR 1.8 D 09/07/18 08:16 APTT 47 SECONDS (21-34) H 09/02/18 14:07 Assessment and Plan - Assessment and Plan (Free Text) Assessment: A/P 43 yr old male with Hx of decompensated alcoholic cirrhosis admitted with Abdominal pain, Ascites, Severe anemia s/p PRBC TRANSFUSION - hgb stable today - 8.5 s/p EGD- No active bleeding on EGD , and stable for discharge from GI standpoint D/w Dr. Swenson cleared for discharge home today an df/u with Dr. Swenson office in 1 week Discharge plan discussed with patient , who understands and agrees with plan RX given upon discharge
[2018-09-08] MEDS ORDERED: Magnesium Oxide 400 mg Tab UD PO ONE (12:00)
--- NOTE | 2018-09-08 12:46 | CP.PCM.PN ---
Subjective - Date & Time of Evaluation Date of Evaluation: 09/08/18 Time of Evaluation: 07:20 - Subjective Subjective: clinically same Objective - Vital Signs/Intake and Output Vital Signs (last 24 hours): Temp Pulse Resp BP Pulse Ox 97.8 F 89 20 100/57 L 99 09/08/18 00:02 09/08/18 05:30 09/08/18 05:30 09/08/18 10:06 09/08/18 05:30 Intake and Output: 09/08/18 09/08/18 06:59 18:59 Intake Total 700 Output Total 500 Balance 200 - Medications Medications: Current Medications Acetaminophen (Tylenol 325mg Tab) 650 mg PO Q12 PRN PRN Reason: Pain, moderate (4-7) Last Admin: 09/07/18 01:24 Dose: 650 mg Carvedilol (Coreg) 3.125 mg PO BID [facility] Last Admin: 09/08/18 10:06 Dose: 3.125 mg Diphenhydramine HCl (Benadryl) 25 mg PO Q6 PRN PRN Reason: Itching / Pruritus Last Admin: 09/07/18 21:39 Dose: 25 mg Enoxaparin Sodium (Lovenox) 30 mg SC DAILY [facility] Folic Acid (Folic Acid) 1 mg PO DAILY [facility] Last Admin: 09/08/18 10:06 Dose: 1 mg Furosemide (Lasix) 20 mg PO DAILY [facility] Last Admin: 09/08/18 10:06 Dose: 20 mg Lactulose (Enulose) 20 gm PO [facility] Multivitamins (Hexavitamin) 1 tab PO DAILY [facility] Last Admin: 09/08/18 10:06 Dose: 1 tab Pantoprazole Sodium (Protonix Inj) 40 mg IVP DAILY [facility] Last Admin: 09/08/18 10:07 Dose: 40 mg Rifaximin (Xifaxan) 550 mg PO BID [facility]; Protocol Last Admin: 09/08/18 10:06 Dose: 550 mg Spironolactone (Aldactone) 100 mg PO DAILY [facility] Last Admin: 09/08/18 10:06 Dose: 100 mg Thiamine HCl (Vitamin B1 Tab) 100 mg PO DAILY [facility] Last Admin: 09/08/18 10:06 Dose: 100 mg - Labs Labs: 09/08/18 08:45 09/08/18 08:45 PT 20.2 SECONDS (9.7-12.2) H 09/07/18 08:16 INR 1.8 D 09/07/18 08:16 APTT 47 SECONDS (21-34) H 09/02/18 14:07
== END 2018-09-08 13:52 | disposition home or self-care (01) | DRG 202 ==
LOC: C.ER 19:34 → C.3T 20:50 → OBSVTOIN 09-03 14:22
PROVIDERS: ADMIT Internal Medicine Nephrology; ATTEND Internal Medicine Nephrology
PROC: 30233N1 Transfusion of Nonautologous Red Blood Cells into Peripheral Vein, Percutaneous Approach (ICD-10-PCS; 2018-08-31)
PROC: 30233K1 Transfusion of Nonautologous Frozen Plasma into Peripheral Vein, Percutaneous Approach (ICD-10-PCS; 2018-09-06)
PROC: BW40ZZZ Ultrasonography of Abdomen (ICD-10-PCS; 2018-09-07)
PROC: 0DJ08ZZ Inspection of Upper Intestinal Tract, Via Natural or Artificial Opening Endoscopic (ICD-10-PCS; 2018-09-07)
PROC: 6A550Z2 Pheresis of Platelets, Single (ICD-10-PCS; 2018-09-07)
PROC: 0W9G3ZZ Drainage of Peritoneal Cavity, Percutaneous Approach (ICD-10-PCS; principal; 2018-09-07 13:27)
DX: K70.31 Alcoholic cirrhosis of liver with ascites (principal); D64.9 Anemia, unspecified; I85.10 Secondary esophageal varices without bleeding; K76.6 Portal hypertension; K31.89 Other diseases of stomach and duodenum; F10.11 Alcohol abuse, in remission; Z87.19 Personal history of other diseases of the digestive system; Z87.11 Personal history of peptic ulcer disease

== ENCOUNTER 2018-09-22 17:31 | Observation (INO) | payer MEDICAID ==
[2018-09-22 17:34] VITALS: BMI 20.5
--- NOTE | 2018-09-22 18:05 | C.PDOC ---
Chief Complaint (Nursing): Abdominal Pain Past Medical History Vital Signs: Last Vital Signs Temp 97.7 F 09/22/18 17:34 Pulse 85 09/22/18 17:34 Resp 18 09/22/18 17:34 BP 102/67 09/22/18 17:34 Pulse Ox 100 09/22/18 17:34 - Medical History PMH: Anemia, Gastritis (+ H. PYLORII), Gastrointestinal Ulcer, HTN (PORTAL), Seizures (alcohol related) Denies: Fractures, Chronic Kidney Disease Surgical History: Endoscopy - [facility] Procedures ALCOHOL DETOXIFICATION (10/03/14) DETOXIFICATION SERVICES FOR SUBSTANCE ABUSE TREATMENT (05/27/18) DRAINAGE OF PERITONEAL CAVITY, PERCUTANEOUS APPROACH (09/03/18) ESOPHAGOGASTRODUODENOSCOPY [EGD] W/CLOSED BIOPSY (08/10/14) GROUP DRAWER WAXER FOR SUBSTANCE ABUSE TREATMENT, PSYCHOEDUCATION (05/27/18) GROUP DRAWER WAXER FOR SUBSTANCE ABUSE, COGNITIVE BEHAVIORAL (05/27/18) GROUP PSYCHOTHERAPY (05/27/18) INDIV DRAWER WAXER FOR SUBSTANCE ABUSE TREATMENT, BEHAVIORAL (08/05/15) INDIV PSYCHOTHERAPY FOR SUBSTANCE ABUSE TREATMENT, SUPPORT (05/27/18) INDIV PSYCHOTHERAPY FOR SUBSTANCE ABUSE, COGNITIV BEHAVIORAL (05/27/18) INDIV PSYCHOTHERAPY FOR SUBSTANCE ABUSE, PSYCHOEDUCATION (05/27/18) INDIVIDUAL PSYCHOTHERAPY, COGNITIVE-BEHAVIORAL (05/27/18) INDIVIDUAL PSYCHOTHERAPY, SUPPORTIVE (05/27/18) INSERTION OF ENDOTRACHEAL AIRWAY INTO TRACHEA, VIA OPENING (08/05/15) INSPECTION OF UPPER INTESTINAL TRACT, ENDO (09/03/18) MEDS MGMT FOR SUBSTANCE ABUSE TREATMENT, OTH REPL MED (04/25/17) OCCLUSION ESOPHAGEAL VEIN W EXTRALUM DEV, PERC ENDO (07/16/17) OTHER ENDOSCOPY OF SM INTEST (11/19/14) PACKED CELL TRANSFUSION (04/04/15) PHERESIS OF PLATELETS, SINGLE (09/03/18) PLATELET TRANSFUSION (11/19/14) RESPIRATORY VENTILATION, 24-96 CONSECUTIVE HOURS (08/05/15) TRANSFUSE NONAUT FROZEN PLASMA IN PERIPH VEIN, PERC (09/03/18) TRANSFUSE NONAUT PLATELETS IN PERIPH VEIN, PERC (05/27/18) TRANSFUSE NONAUT RED BLOOD CELLS IN PERIPH VEIN, PERC (09/03/18) ULTRASONOGRAPHY OF ABDOMEN (09/03/18) VACCINATION NEC (03/14/14) - Social History Hx Tobacco Use: No Hx Alcohol Use: Yes (stop 4 months) Hx Substance Use: No - Immunization History Hx Tetanus Toxoid Vaccination: Yes Hx Influenza Vaccination: Yes Hx Pneumococcal Vaccination: Yes ED Course And Treatment O2 Sat by Pulse Oximetry: 100 Disposition - Disposition
[2018-09-22 19:23] LABS: BASO # 0.1 K/uL (0.0-0.2); EOS # 0.3 K/uL (0.0-0.7); HEMOGLOBIN 6.6 g/dL (12.0-18.0); LYMPH # 1.1 K/uL (1.0-4.3); LYMPH % 20.8 % (20.0-40.0); MEAN CORPUSCULAR HEMOGLOBIN 28.9 pg (27.0-31.0); MEAN CORPUSCULAR HGB CONC 32.6 g/dL (33.0-37.0); MEAN PLATELET VOLUME 8.1 fL (7.2-11.7); MONO # 0.7 K/uL (0.0-0.8); MONO % 12.7 % (0.0-10.0); NEUT # 3.1 K/uL (1.8-7.0); NEUT % 60.5 % (50.0-75.0); NRBC % 0.1 % (0.0-2.0); RBC 2.28 Mil/uL (4.40-5.90); RED CELL DISTRIBUTION WIDTH 15.8 % (11.5-14.5); WHITE BLOOD COUNT 5.1 K/uL (4.8-10.8)
[2018-09-22 19:26] LABS: MEAN CELL VOLUME 88.8 fL (80.0-94.0)
[2018-09-22 19:35] LABS: INR 2.2; PROTHROMBIN TIME 23.8 SECONDS (9.7-12.2)
[2018-09-22 19:42] LABS: ALB/GLOB RATIO 0.5 (1.0-2.1); ALBUMIN 2.2 g/dL (3.5-5.0); ALT/SGPT 28 U/L (21-72); AST/SGOT 55 U/L (17-59); BLOOD UREA NITROGEN 9 mg/dL (9-20); CALCIUM 7.3 mg/dl (8.6-10.4); GFR NON-AFRICAN AMERICAN > 60; LIPASE 378 U/L (23-300)
--- NOTE | 2018-09-22 20:18 | C.PDOC ---
History Of Present Illness 43 year old male presents to the ED for evaluation of increased abdominal girth. Patient has history of alcoholic cirrhosis, abdominal ascites, and chronic pancreatitis. He was recently admitted two weeks ago, and underwent abdominal paracentesis with 4 liters of fluid removed. Patient claims he has not had any alcoholic intake within the last 4 months. He denies fever, chills, nausea, vomiting. Time Seen by Provider: 09/22/18 18:50 Chief Complaint (Nursing): Abdominal Pain History Per: Patient History/Exam Limitations: no limitations Onset/Duration Of Symptoms: Days Current Symptoms Are (Timing): Still Present Associated Symptoms: denies: Fever, Chills, Nausea, Vomiting Past Medical History Reviewed: Historical Data, Nursing Documentation, Vital Signs Vital Signs: Last Vital Signs Temp 97.7 F 09/22/18 17:34 Pulse 85 09/22/18 17:34 Resp 18 09/22/18 17:34 BP 102/67 09/22/18 17:34 Pulse Ox 100 09/22/18 17:34 - Medical History PMH: Anemia, Gastritis (+ H. PYLORII), Gastrointestinal Ulcer, HTN (PORTAL), Seizures (alcohol related) Denies: Fractures, Chronic Kidney Disease Surgical History: Endoscopy - [facility] Procedures ALCOHOL DETOXIFICATION (10/03/14) DETOXIFICATION SERVICES FOR SUBSTANCE ABUSE TREATMENT (05/27/18) DRAINAGE OF PERITONEAL CAVITY, PERCUTANEOUS APPROACH (09/03/18) ESOPHAGOGASTRODUODENOSCOPY [EGD] W/CLOSED BIOPSY (08/10/14) GROUP RETAIL MORTGAGE BANKER FOR SUBSTANCE ABUSE TREATMENT, PSYCHOEDUCATION (05/27/18) GROUP RETAIL MORTGAGE BANKER FOR SUBSTANCE ABUSE, COGNITIVE BEHAVIORAL (05/27/18) GROUP PSYCHOTHERAPY (05/27/18) INDIV RETAIL MORTGAGE BANKER FOR SUBSTANCE ABUSE TREATMENT, BEHAVIORAL (08/05/15) INDIV PSYCHOTHERAPY FOR SUBSTANCE ABUSE TREATMENT, SUPPORT (05/27/18) INDIV PSYCHOTHERAPY FOR SUBSTANCE ABUSE, COGNITIV BEHAVIORAL (05/27/18) INDIV PSYCHOTHERAPY FOR SUBSTANCE ABUSE, PSYCHOEDUCATION (05/27/18) INDIVIDUAL PSYCHOTHERAPY, COGNITIVE-BEHAVIORAL (05/27/18) INDIVIDUAL PSYCHOTHERAPY, SUPPORTIVE (05/27/18) INSERTION OF ENDOTRACHEAL AIRWAY INTO TRACHEA, VIA OPENING (08/05/15) INSPECTION OF UPPER INTESTINAL TRACT, ENDO (09/03/18) MEDS MGMT FOR SUBSTANCE ABUSE TREATMENT, OTH REPL MED (04/25/17) OCCLUSION ESOPHAGEAL VEIN W EXTRALUM DEV, PERC ENDO (07/16/17) OTHER ENDOSCOPY OF SM INTEST (11/19/14) PACKED CELL TRANSFUSION (04/04/15) PHERESIS OF PLATELETS, SINGLE (09/03/18) PLATELET TRANSFUSION (11/19/14) RESPIRATORY VENTILATION, 24-96 CONSECUTIVE HOURS (08/05/15) TRANSFUSE NONAUT FROZEN PLASMA IN PERIPH VEIN, PERC (09/03/18) TRANSFUSE NONAUT PLATELETS IN PERIPH VEIN, PERC (05/27/18) TRANSFUSE NONAUT RED BLOOD CELLS IN PERIPH VEIN, PERC (09/03/18) ULTRASONOGRAPHY OF ABDOMEN (09/03/18) VACCINATION NEC (03/14/14) Family History: States: Unknown Family Hx - Social History Hx Tobacco Use: No Hx Alcohol Use: Yes (stop 4 months) Hx Substance Use: No - Immunization History Hx Tetanus Toxoid Vaccination: Yes Hx Influenza Vaccination: Yes Hx Pneumococcal Vaccination: Yes Review Of Systems Constitutional: Negative for: Fever, Chills Gastrointestinal: Positive for: Other (increased abdominal girth ). Negative for: Nausea, Vomiting Physical Exam - Physical Exam Appears: Non-toxic, No Acute Distress, Other (small stature) Skin: Normal Color, Warm, Dry Head: Other (temporal wasting bilaterally ) Eye(s): bilateral: Normal Inspection Oral Mucosa: Moist Neck: Supple Chest: Symmetrical, No Deformity, No Tenderness Cardiovascular: Rhythm Regular, No Murmur, No JVD Respiratory: Normal Breath Sounds, No Rales, No Rhonchi, No Wheezing Gastrointestinal/Abdominal: No Tenderness, No Guarding, No Rebound, Ascites, Other (protuberant abdomen, positive caput medusae) Extremity: Capillary Refill (less than 2 seconds ), Other (minor edema noted to lower extremities ) Neurological/Psych: Oriented x3, Normal Speech, Normal Cognition ED Course And Treatment - Laboratory Results Result Diagrams: 09/22/18 19:19 09/22/18 19:19 Lab Interpretation: Normal (significant anemia, normal ammonia 13) O2 Sat by Pulse Oximetry: 100 (on RA) Pulse Ox Interpretation: Normal - Radiology CXR: Interpreted by Oh CXR Interpretation: Yes: No Acute Disease Progress Note: Bloodwork, urinalysis, CXR, EKG ordered and reviewed. Reevaluation Time: 20:19 Reassessment Condition: Unchanged - Physician Consult Information Outcome Of Conversation: 1899: d/w Dr. Henny Leroy- PMD- ok to admit. Medical Decision Making Medical Decision Making: recurrent abd ascites, related to hepatic cirrhosis last tapped for 4 liters approx 2 wks ago Disposition Doctor Will See Patient In The: Hospital Counseled Patient/Family Regarding: Studies Performed, Diagnosis - Disposition Disposition: HOSPITALIZED Disposition Time: 20:17 Condition: GOOD - Clinical Impression Clinical Impression: Ascites due to alcoholic cirrhosis - Scribe Statement The provider has reviewed the documentation as recorded by the Scribe (Echo Leroy) Provider Attestation: All medical record entries made by the Scribe were at my direction and personally dictated by me. I have reviewed the chart and agree that the record accurately reflects my personal performance of the history, physical exam, medical decision making, and the department course for this patient. I have also personally directed, reviewed, and agree with the discharge instructions and disposition.
--- NOTE | 2018-09-23 07:32 | RAD ---
Chest x-ray single frontal view HISTORY: Abdominal pain. COMPARISON: 01/01/2018 Findings: Mild venous congestion. Mild patchy increased markings in the left suprahilar region. Heart size within normal limits. Impression: Mild venous congestion. Mild patchy increased markings in the left suprahilar region.
[2018-09-23] MEDS: Magnesium Oxide 400 mg Tab UD PO SCH (10:03)
[2018-09-23] MEDS: Multiple Vitamins Tab PO SCH (10:03)
[2018-09-23] MEDS: Pantoprazole 40 mg EC Tab PO SCH (10:03)
[2018-09-23] MEDS ORDERED: Lidocaine Hydrochloride 5 ML INJ ONE (10:29)
--- NOTE | 2018-09-23 11:32 | PCM.SURG1 ---
Surgeon's Initial Post Op Note - Surgeon's Notes Surgeon: Solo Joiner MD Aligning Inspector: NONE Type of Anesthesia: Local Pre-Operative Diagnosis: Ascites, cirrhosis Operative Findings: US showed moderate ascites Post-Operative Diagnosis: Ascites, cirrhosis Operation Performed: US guided paracentesis Specimen/Specimens Removed: 3.5 liters of straw colored fluid Estimated Blood Loss: EBL {In ML}: 0 Blood Products Given: N/A Drains Used: No Drains Post-Op Condition: Fair Date of Surgery/Procedure: 09/23/18 Time of Surgery/Procedure: 10:35
--- NOTE | 2018-09-23 11:39 | US ---
Date of Procedure: 09/23/2018 PROCEDURE: Ultrasound-guided paracentesis, CPT 37248 Medications: 7 cc 1% Lidocaine HISTORY: Ascites, abdominal pain, cirrhosis TECHNIQUE: Following informed consent , the patient was placed supine on the stretcher and the site was marked. A limited abdominal ultrasound was performed that showed a moderate amount of intra-abdominal fluid. Procedural time out was called and the Pt's abdomen was marked and prepped and draped in the usual sterile fashion. Ultrasound-guided large volume paracentesis performed. A total of 3.5 Liters of straw colored fluid was removed without complication. IMPRESSION: Ultrasound-guided paracentesis.
[2018-09-23 14:13] LABS: BLOOD UREA NITROGEN 8 mg/dL (9-20); CALCIUM 7.2 mg/dl (8.6-10.4); GFR NON-AFRICAN AMERICAN > 60
--- NOTE | 2018-09-23 18:06 | CP.PCM.HP ---
Past Patient History - Infectious Disease Hx of Infectious Diseases: None - Past Medical History & Family History Past Medical History?: Yes - Past Social History Smoking Status: Never Smoked - CARDIAC Hx Cardiac Disorders: Yes Hx Hypertension: Yes (PORTAL) - PULMONARY Hx Respiratory Disorders: No - NEUROLOGICAL Hx Neurological Disorder: Yes Hx Seizures: Yes (alcohol related) - HEENT Hx HEENT Problems: No - RENAL Hx Chronic Kidney Disease: No - ENDOCRINE/METABOLIC Hx Endocrine Disorders: No - HEMATOLOGICAL/ONCOLOGICAL Hx Blood Disorders: Yes Hx Anemia: Yes - INTEGUMENTARY Hx Dermatological Problems: No - MUSCULOSKELETAL/RHEUMATOLOGICAL Hx Musculoskeletal Disorders: Yes Hx Falls: Yes - GASTROINTESTINAL Hx Gastrointestinal Disorders: Yes Hx Gastritis: Yes (+ H. PYLORII) Hx Pancreatitis: Yes - GENITOURINARY/GYNECOLOGICAL Hx Genitourinary Disorders: No - PSYCHIATRIC Hx Substance Use: No - SURGICAL HISTORY Hx Surgeries: Yes Other/Comment: Endoscopy - ANESTHESIA Hx Anesthesia: Yes Hx Anesthesia Reactions: No Hx Malignant Hyperthermia: No Has any member of the family had a problem w/ anesthesia?: No Meds Allergies/Adverse Reactions: Allergies Allergy/AdvReac Type Severity Reaction Status Date / Time No Known Allergies Allergy Verified 09/22/18 17:33 Physical Exam - Constitutional Appears: Well - Head Exam Head Exam: ATRAUMATIC, NORMAL INSPECTION, NORMOCEPHALIC - Eye Exam Eye Exam: EOMI, Normal appearance, PERRL Pupil Exam: NORMAL ACCOMODATION, PERRL - ENT Exam ENT Exam: Mucous Membranes Moist, Normal Exam - Neck Exam Neck exam: Positive for: Normal Inspection - Respiratory Exam Respiratory Exam: Decreased Breath Sounds - Cardiovascular Exam Cardiovascular Exam: +S1, +S2. absent: REGULAR RHYTHM - GI/Abdominal Exam GI & Abdominal Exam: Diminished Bowel Sounds - Rectal Exam Rectal Exam: Deferred Results - Vital Signs Recent Vital Signs: Last Vital Signs Temp 97.7 F 09/23/18 16:30 Pulse 74 09/23/18 16:30 Resp 18 09/23/18 15:30 BP 108/70 09/23/18 16:30 Pulse Ox 100 09/23/18 15:05 - Labs Result Diagrams: 09/22/18 19:19 09/23/18 13:35 Labs: Laboratory Results - last 24 hr 09/22/18 09/22/18 09/22/18 19:19 19:19 19:19 WBC 5.1 D RBC 2.28 L Hgb 6.6 L Hct 20.2 L MCV 88.8 D MCH 28.9 MCHC 32.6 L RDW 15.8 H Plt Count 72 L MPV 8.1 Neut % (Auto) 60.5 Lymph % (Auto) 20.8 [place] % (Auto) 12.7 H Eos % (Auto) 5.0 H Baso % (Auto) 1.0 Neut # (Auto) 3.1 Lymph # (Auto) 1.1 [place] # (Auto) 0.7 Eos # (Auto) 0.3 Baso # (Auto) 0.1 PT 23.8 H INR 2.2 APTT 45 H Sodium 133 Potassium 3.5 L Chloride 104 Carbon Dioxide 20 L Anion Gap 12 BUN 9 Creatinine 0.8 Est GFR ( Amer) > 60 Est GFR (Non-Af Amer) > 60 Random Glucose 79 Calcium 7.3 L Phosphorus Magnesium Total Bilirubin 3.3 H AST 55 ALT 28 Alkaline Phosphatase 153 H Ammonia Total Protein 6.1 L Albumin 2.2 L Globulin 4.0 H Albumin/Globulin Ratio 0.5 L Lipase 378 H Blood Type Antibody Screen 09/22/18 09/23/18 09/23/18 19:19 12:02 13:35 WBC RBC Hgb Hct MCV MCH MCHC RDW Plt Count MPV Neut % (Auto) Lymph % (Auto) [place] % (Auto) Eos % (Auto) Baso % (Auto) Neut # (Auto) Lymph # (Auto) [place] # (Auto) Eos # (Auto) Baso # (Auto) PT INR APTT Sodium 131 L Potassium 3.4 L Chloride 105 Carbon Dioxide 21 L Anion Gap 9 L BUN 8 L Creatinine 0.7 L Est GFR ( Amer) > 60 Est GFR (Non-Af Amer) > 60 Random Glucose 107 Calcium 7.2 L Phosphorus 3.3 Magnesium 1.4 L Total Bilirubin AST ALT Alkaline Phosphatase Ammonia 13 D Total Protein Albumin Globulin Albumin/Globulin Ratio Lipase Blood Type O POSITIVE Antibody Screen Negative
[2018-09-24 00:10] VITALS: RESP 20
[2018-09-24 06:44] LABS: URINE BILIRUBIN NEGATIVE (NEGATIVE); URINE BLOOD NEGATIVE (NEGATIVE); URINE CLARITY Clear (Clear); URINE COLOR Amber (YELLOW); URINE GLUCOSE (UA) NORMAL (Normal); URINE LEUKOCYTE ESTERASE NEG Leu/uL (Negative); URINE PROTEIN NEGATIVE (NEGATIVE); URINE UROBILINOGEN NORMAL mg/dL (0.2-1.0)
[2018-09-24] MEDS: Pantoprazole 40 mg EC Tab PO SCH (09:17)
[2018-09-24] MEDS: Multiple Vitamins Tab PO SCH (09:17)
[2018-09-24] MEDS: Magnesium Oxide 400 mg Tab UD PO SCH (09:18)
[2018-09-24] MEDS ORDERED: Potassium Chloride 20 mEq ER Tab PO ONE (12:00)
[2018-09-24] MEDS ORDERED: Magnesium Sulfate 1 gm in D5W 1 GM/100 ML BAG IVPB ONE (12:30)
[2018-09-24 12:35] LABS: HEMOGLOBIN 8.6 g/dL (12.0-18.0)
[2018-09-24 12:39] LABS: MEAN CELL VOLUME 87.7 fL (80.0-94.0); MEAN CORPUSCULAR HEMOGLOBIN 29.8 pg (27.0-31.0); MEAN PLATELET VOLUME 8.4 fL (7.2-11.7); RBC 2.88 Mil/uL (4.40-5.90); RED CELL DISTRIBUTION WIDTH 15.2 % (11.5-14.5); WHITE BLOOD COUNT 6.5 K/uL (4.8-10.8)
[2018-09-24 13:25] LABS: BASO # 0.1 K/uL (0.0-0.2); EOS # 0.8 K/uL (0.0-0.7); LYMPH # 1.1 K/uL (1.0-4.3); MONO # 0.6 K/uL (0.0-0.8)
[2018-09-24 13:29] LABS: BLOOD UREA NITROGEN 6 mg/dL (9-20); CALCIUM 7.2 mg/dl (8.6-10.4); GFR NON-AFRICAN AMERICAN > 60
--- NOTE | 2018-09-24 15:55 | CP.PCM.PN ---
Subjective - Date & Time of Evaluation Date of Evaluation: 09/24/18 Time of Evaluation: 15:55 - Subjective Subjective: alert and orientedx3, no acute distress or pain. Objective - Vital Signs/Intake and Output Vital Signs (last 24 hours): Temp Pulse Resp BP Pulse Ox 97.8 F 73 20 97/60 L 100 09/24/18 07:42 09/24/18 07:42 09/24/18 07:42 09/24/18 09:40 09/24/18 07:42 Intake and Output: 09/24/18 09/24/18 06:59 18:59 Intake Total 240 Balance 240 - Medications Medications: Current Medications Carvedilol (Coreg) 3.125 mg PO BID [facility] Last Admin: 09/24/18 09:40 Dose: Not Given Folic Acid (Folic Acid) 1 mg PO DAILY [facility] Last Admin: 09/24/18 09:18 Dose: 1 mg Furosemide (Lasix) 20 mg PO DAILY [facility] Lactulose (Enulose) 20 gm PO Q12H [facility] Last Admin: 09/24/18 09:17 Dose: 20 gm Magnesium Oxide (Mag-Ox) 400 mg PO DAILY [facility] Last Admin: 09/24/18 09:18 Dose: 400 mg Multivitamins (Hexavitamin) 1 tab PO DAILY [facility] Last Admin: 09/24/18 09:17 Dose: 1 tab Pantoprazole Sodium (Protonix Ec Tab) 40 mg PO DAILY [facility] Last Admin: 09/24/18 09:17 Dose: 40 mg Rifaximin (Xifaxan) 550 mg PO BID [facility]; Protocol Last Admin: 09/24/18 09:18 Dose: 550 mg Spironolactone (Aldactone) 100 mg PO DAILY [facility] Last Admin: 09/24/18 09:40 Dose: Not Given - Labs Labs: 09/24/18 12:18 09/24/18 12:18 PT 23.8 SECONDS (9.7-12.2) H 09/22/18 19:19 INR 2.2 09/22/18 19:19 APTT 45 SECONDS (21-34) H 09/22/18 19:19 Assessment and Plan - Assessment and Plan (Free Text) Assessment: 43 year old male with liver cirrhosis admitted with ascites, s/p abdominal paracentesis, seen and examined. Alert and orientesx3, denies pain or distress. Discussed with DR Kendrick Leroy, plan to discharge home on present meds. Advised to follow up in the office in 1 week.
[2018-09-24 16:07] VITALS: BP 111/75; PULSE 86; TEMP 97.4; O2SAT 95
--- NOTE | 2018-09-25 05:09 | CARD ---
APPROVED REPORT Date of service: 09/22/2018 EKG Measurement Heart [id number] <Conclusion> Normal sinus rhythm Normal ECG
== END 2018-09-24 17:10 | disposition home or self-care (01) ==
LOC: C.ER 17:31 → INTOOBSV 20:19 → C.3T 20:19
PROVIDERS: ADMIT Internal Medicine Nephrology; ATTEND Internal Medicine Nephrology
PROC: 0W9G3ZZ Drainage of Peritoneal Cavity, Percutaneous Approach (ICD-10-PCS; principal; 2018-09-23)
PROC: BW40ZZZ Ultrasonography of Abdomen (ICD-10-PCS; 2018-09-23)
DX: K70.31 Alcoholic cirrhosis of liver with ascites (principal); K86.0 Alcohol-induced chronic pancreatitis; F10.20 Alcohol dependence, uncomplicated; K76.6 Portal hypertension; I10 Essential (primary) hypertension; Z87.11 Personal history of peptic ulcer disease
CPT/HCPCS: 36415; 36430; 49083; 71045; 80048; 80053; 81001; 82140; 83690; 83735; 84100; 85025; 85610; 85730; 86850; 86900; 86920; 93005; 99284; G0378; J1940; J3475; P9058

== ENCOUNTER 2018-10-02 13:44 | Day surgery (SDC) | payer MEDICAID ==
[2018-10-02] MEDS ORDERED: Lidocaine Hydrochloride 10 ML INJ ONE (14:20)
--- NOTE | 2018-10-02 14:44 | CP.SDSHP ---
Same Day Surgery H & P - History Proposed Procedure: US guided paracentesis Pre-Op Diagnosis: Ascites, cirrhosis - Allergies Allergies: Allergies No Known Allergies Allergy (Verified 09/22/18 17:33) - Physical Exam Mental Status: Alert & Oriented x3 - Impression Impression: Pt with refractory ascites. Plan US guided paracentesis. Pt. Evaluated Today:Candidate for Anesthesia & Procedure: No - Date & Time Date: 10/02/18 Time: 14:30 Short Stay Discharge - Short Stay Discharge Admitting Diagnosis/Reason for Visit: DX: CIRRHOSIS Disposition: HOME/ ROUTINE
--- NOTE | 2018-10-02 14:55 | PCM.SURG1 ---
Surgeon's Initial Post Op Note - Surgeon's Notes Surgeon: Solo Redman MD Balance Wheel Arm Burnisher: NONE Type of Anesthesia: Local Pre-Operative Diagnosis: Ascites Operative Findings: US showed moderate ascites Post-Operative Diagnosis: Ascites Operation Performed: US guided paracentesis Specimen/Specimens Removed: 3.7 liters of straw colored fluid Estimated Blood Loss: EBL {In ML}: 0 Blood Products Given: N/A Drains Used: No Drains Post-Op Condition: Good Date of Surgery/Procedure: 10/02/18 Time of Surgery/Procedure: 14:50
[2018-10-02 14:57] VITALS: BMI 22.4
--- NOTE | 2018-10-02 16:52 | US ---
Date of Procedure: 10/02/2018 PROCEDURE: Ultrasound-guided paracentesis, CPT 54196 Medications: 7 cc 1% Lidocaine HISTORY: Ascites, abdominal pain, cirrhosis TECHNIQUE: Following informed consent , the patient was placed supine on the stretcher and the site was marked. A limited abdominal ultrasound was performed that showed a large amount of intra-abdominal fluid. Procedural time out was called and the Pt's abdomen was marked and prepped and draped in the usual sterile fashion. Ultrasound-guided large volume paracentesis performed. A total of 3.7 Liters of straw colored fluid was removed without complication. IMPRESSION: Ultrasound-guided large volume paracentesis.
== END 2018-10-02 17:43 | disposition home or self-care (01) ==
LOC: C.SPRAD 13:44
PROVIDERS: ATTEND Internal Medicine Nephrology
DX: R18.8 Other ascites (principal); K74.60 Unspecified cirrhosis of liver

== ENCOUNTER 2018-10-12 06:28 | Inpatient (IN) | payer MEDICAID ==
[2018-10-12 06:29] VITALS: BMI 22.4
--- NOTE | 2018-10-12 07:48 | C.PDOC ---
History Of Present Illness 43 year old male, with history of liver cirrhosis, presents to the ED with abdominal distention which began around 2-3 days ago. Patient states the distention is pushing up against his lungs, and causing chest discomfort and shortness of breath since last night. Patient last underwent paracentesis around ten days ago. He states his last alcohol intake was four months ago. Patient denies fever, chills, nausea, vomiting. Time Seen by Provider: 10/12/18 07:04 Chief Complaint (Nursing): Shortness Of Breath History Per: Patient, Family History/Exam Limitations: no limitations Onset/Duration Of Symptoms: Hrs, Days (2-3) Current Symptoms Are (Timing): Still Present Additional History Per: Patient Past Medical History Reviewed: Historical Data, Nursing Documentation, Vital Signs Vital Signs: Last Vital Signs Temp 99.0 F 10/12/18 06:44 Pulse 100 H 10/12/18 06:44 Resp 20 10/12/18 07:02 BP 98/46 L 10/12/18 06:44 Pulse Ox 100 10/12/18 07:02 - Medical History PMH: Anemia, Gastritis (+ H. PYLORII), Gastrointestinal Ulcer, HTN (PORTAL), Pancreatitis, Seizures (alcohol related) Denies: Fractures, Chronic Kidney Disease Surgical History: Endoscopy - [facility] Procedures ALCOHOL DETOXIFICATION (10/03/14) DETOXIFICATION SERVICES FOR SUBSTANCE ABUSE TREATMENT (05/27/18) DRAINAGE OF PERITONEAL CAVITY, PERCUTANEOUS APPROACH (09/22/18) ESOPHAGOGASTRODUODENOSCOPY [EGD] W/CLOSED BIOPSY (08/10/14) GROUP DEAN FOR SUBSTANCE ABUSE TREATMENT, PSYCHOEDUCATION (05/27/18) GROUP DEAN FOR SUBSTANCE ABUSE, COGNITIVE BEHAVIORAL (05/27/18) GROUP PSYCHOTHERAPY (05/27/18) INDIV DEAN FOR SUBSTANCE ABUSE TREATMENT, BEHAVIORAL (08/05/15) INDIV PSYCHOTHERAPY FOR SUBSTANCE ABUSE TREATMENT, SUPPORT (05/27/18) INDIV PSYCHOTHERAPY FOR SUBSTANCE ABUSE, COGNITIV BEHAVIORAL (05/27/18) INDIV PSYCHOTHERAPY FOR SUBSTANCE ABUSE, PSYCHOEDUCATION (05/27/18) INDIVIDUAL PSYCHOTHERAPY, COGNITIVE-BEHAVIORAL (05/27/18) INDIVIDUAL PSYCHOTHERAPY, SUPPORTIVE (05/27/18) INSERTION OF ENDOTRACHEAL AIRWAY INTO TRACHEA, VIA OPENING (08/05/15) INSPECTION OF UPPER INTESTINAL TRACT, ENDO (09/03/18) MEDS MGMT FOR SUBSTANCE ABUSE TREATMENT, OTH REPL MED (04/25/17) OCCLUSION ESOPHAGEAL VEIN W EXTRALUM DEV, PERC ENDO (07/16/17) OTHER ENDOSCOPY OF SM INTEST (11/19/14) PACKED CELL TRANSFUSION (04/04/15) PHERESIS OF PLATELETS, SINGLE (09/03/18) PLATELET TRANSFUSION (11/19/14) RESPIRATORY VENTILATION, 24-96 CONSECUTIVE HOURS (08/05/15) TRANSFUSE NONAUT FROZEN PLASMA IN PERIPH VEIN, PERC (09/03/18) TRANSFUSE NONAUT PLATELETS IN PERIPH VEIN, PERC (05/27/18) TRANSFUSE NONAUT RED BLOOD CELLS IN PERIPH VEIN, PERC (09/03/18) ULTRASONOGRAPHY OF ABDOMEN (09/22/18) VACCINATION NEC (03/14/14) Family History: States: Unknown Family Hx - Social History Hx Tobacco Use: No Hx Alcohol Use: Yes (QUIT 4 MOS AGO) Hx Substance Use: No - Immunization History Hx Tetanus Toxoid Vaccination: Yes Hx Influenza Vaccination: Yes Hx Pneumococcal Vaccination: Yes Review Of Systems Constitutional: Negative for: Fever, Chills Cardiovascular: Positive for: Other (chest discomfort ) Respiratory: Positive for: Shortness of Breath Gastrointestinal: Positive for: Other (abdominal distention ). Negative for: Nausea, Vomiting Physical Exam - Physical Exam Appears: Non-toxic, No Acute Distress Skin: Warm, Dry, Jaundice Head: Atraumatic, Normacephalic Eye(s): bilateral: PERRL, EOMI, Scleral Icterus Oral Mucosa: Moist Neck: Supple Chest: Symmetrical, No Deformity, No Tenderness Cardiovascular: Rhythm Regular, No Murmur Respiratory: Normal Breath Sounds, No Rales, No Rhonchi, No Wheezing Gastrointestinal/Abdominal: Soft, No Tenderness, Distention (with fluid shift wave ), No Guarding, No Rebound Extremity: Normal ROM, Capillary Refill (less than 2 seconds ), Other (+3 pitting edema bilaterally ) Neurological/Psych: Oriented x3, Normal Speech, Normal Cognition ED Course And Treatment - Laboratory Results Result Diagrams: 10/12/18 07:52 10/12/18 07:52 ECG: Interpreted By Me, Viewed By Me ECG Rhythm: Sinus Rhythm Interpretation Of ECG: Normal Sinus Rhythm at rate 88bpm. Normal intervals, normal axis. Diffuse T wave flattening. Poor R wave progression. Rate From EC O2 Sat by Pulse Oximetry: 100 (on RA) Pulse Ox Interpretation: Normal Critical Care Time - Critical Care Note Total Time (in mins): 60 Documented critical care: time excludes all time spent performing seperately billable procedures. Medical Decision Making Medical Decision Making: Assessment: ascites Plan: * bloodwork * urinalysis * CXR * EKG * reassess and disposition Progress: bloodwork, urinalysis, CXR, and EKG ordered and reviewed. 0820: Call placed to Dr. Handley ([employer] Architect air conditioning unit tester). Pending call back. Dr. Handley evaluated the patient at bedside, and accepts to the ICU. Disposition - Disposition Disposition: HOSPITALIZED Disposition Time: 08:30 Condition: FAIR - Clinical Impression Clinical Impression: Hypothermia, Change in mental status - Scribe Statement The provider has reviewed the documentation as recorded by the Scribe (Echo Leroy) Provider Attestation: All medical record entries made by the Scribe were at my direction and personally dictated by me. I have reviewed the chart and agree that the record accurately reflects my personal performance of the history, physical exam, medical decision making, and the department course for this patient. I have also personally directed, reviewed, and agree with the discharge instructions and disposition.
[2018-10-12 07:57] LABS: BASO % 0.1 % (0.0-2.0); EOS % 0.1 % (0.0-4.0); LYMPH # 0.7 K/uL (1.0-4.3); LYMPH % 2.9 % (20.0-40.0); MEAN CELL VOLUME 87.7 fL (80.0-94.0); MEAN CORPUSCULAR HEMOGLOBIN 26.7 pg (27.0-31.0); MEAN CORPUSCULAR HGB CONC 30.5 g/dL (33.0-37.0); MEAN PLATELET VOLUME 10.3 fL (7.2-11.7); MONO # 3.2 K/uL (0.0-0.8); MONO % 13.2 % (0.0-10.0); NEUT # 20.6 K/uL (1.8-7.0); NEUT % 83.7 % (50.0-75.0); NRBC % 0.4 % (0.0-2.0); PLATELET COUNT 85 K/uL (130-400); RBC 2.04 Mil/uL (4.40-5.90); RED CELL DISTRIBUTION WIDTH 17.2 % (11.5-14.5)
[2018-10-12 08:01] LABS: WHITE BLOOD COUNT 24.5 K/uL (4.8-10.8)
[2018-10-12 08:03] LABS: HEMOGLOBIN 5.5 g/dL (12.0-18.0)
[2018-10-12 08:06] LABS: INR 2.7; PROTHROMBIN TIME 29.3 SECONDS (9.7-12.2)
[2018-10-12 08:21] LABS: TROPONIN I 0.028 ng/mL (0.00-0.120)
[2018-10-12 08:29] LABS: ALB/GLOB RATIO 0.5 (1.0-2.1); ALBUMIN 1.7 g/dL (3.5-5.0)
[2018-10-12] MEDS ORDERED: Morphine 4 MG/ML VIAL IV STA (08:35)
[2018-10-12 08:50] LABS: BANDS 42 % (0-2); LYMPHOCYTE 2 % (20-40); MONOCYTE 4 % (0-10); NEUTROPHIL 52 % (50-75); NUCLEATED RED BLOOD CELL 2 % (0-0); TOTAL CELLS COUNTED 100
[2018-10-12 08:51] LABS: ANISOCYTOSIS SLIGHT; PLATELET ESTIMATE DECREASED (NORMAL)
[2018-10-12 08:52] LABS: BURR CELLS SLIGHT; HYPOCHROMIC MODERATE; OVALOCYTES SLIGHT; POLYCHROMIC SLIGHT; SCHISTOCYTES SLIGHT
[2018-10-12 08:53] LABS: TARGET CELLS SLIGHT
--- NOTE | 2018-10-12 09:43 | CP.PCM.CON ---
History of Present Illness - History of Present Illness History of Present Illness: Critical Care ICU Consult Note for Dr. Handley's service CC: abdominal pain HPI: 43 year old male w/ PMH of asthma, gastritis (h pylori), GI ulcer, portal HTN, liver failure with cirrhosis, pancreatitis, and history of ascites with paracentesis admitted to ICU for abdominal pain. Patient has recently been in hospital for similar symptoms with most recent paracentesis done 10 days ago. Patient has an appointment with GI specialist on Oct 30. Patient states the pain began yesterday and increased which caused shortness of breath in certain positions. Patient admits to weakness, lethargy, abdominal pain, and shortness of breath. Patient denies fevers, chills, chest pain, cough, n/v, constipation or diarrhea, and dysuria. PMH-asthma, gastritis, GI ulcer, portal HTN, liver failure with cirrhosis, pancreatitis, and history of ascites PSH- Endoscopy FH- Denies Social- Denies tobacco use, last etoh use 4 months ago, denies drug use Meds- Carevidilol, Rifaximin, Aldactone, Protonix, MV, Mag oxide, Lactulose, Lasix, Folic acid Allergies- NKDA PMD- Dr. Leroy Review of Systems - Review of Systems Review of Systems: 12 point ROS obtained and noted as in HPI Past Patient History - Infectious Disease Hx of Infectious Diseases: None - Past Medical History & Family History Past Medical History?: Yes - Past Social History Smoking Status: Never Smoked - CARDIAC Hx Hypertension: Yes (PORTAL) - PULMONARY Hx Respiratory Disorders: No - NEUROLOGICAL Hx Seizures: Yes (alcohol related) - HEENT Hx HEENT Problems: No - RENAL Hx Chronic Kidney Disease: No - ENDOCRINE/METABOLIC Hx Endocrine Disorders: No - HEMATOLOGICAL/ONCOLOGICAL Hx Anemia: Yes - INTEGUMENTARY Hx Dermatological Problems: No - MUSCULOSKELETAL/RHEUMATOLOGICAL Hx Fractures: No - GASTROINTESTINAL Hx Gastritis: Yes (+ H. PYLORII) Hx Pancreatitis: Yes - GENITOURINARY/GYNECOLOGICAL Hx Genitourinary Disorders: No - PSYCHIATRIC Hx Substance Use: No - SURGICAL HISTORY Hx Surgeries: Yes Other/Comment: Endoscopy - ANESTHESIA Hx Anesthesia: Yes Hx Anesthesia Reactions: No Meds Allergies/Adverse Reactions: Allergies Allergy/AdvReac Type Severity Reaction Status Date / Time No Known Allergies Allergy Verified 09/22/18 17:33 Physical Exam - Constitutional Appears: Non-toxic, No Acute Distress, Chronically Ill - Head Exam Head Exam: NORMAL INSPECTION, NORMOCEPHALIC - Eye Exam Eye Exam: EOMI, Normal appearance. absent: Nystagmus, Scleral icterus - ENT Exam ENT Exam: Mucous Membranes Dry Additional comments: peripheral catheter in left neck SCM - Respiratory Exam Respiratory Exam: Clear to Auscultation Bilateral, NORMAL BREATHING PATTERN. absent: Rales, Rhonchi, Wheezes - Cardiovascular Exam Cardiovascular Exam: REGULAR RHYTHM, +S1, +S2. absent: Tachycardia - GI/Abdominal Exam GI & Abdominal Exam: Distended, Normal Bowel Sounds, Tenderness. absent: Firm, Guarding, Hernia - Extremities Exam Extremities exam: Positive for: normal inspection. Negative for: calf tenderness, pedal edema - Neurological Exam Neurological exam: Alert, Oriented x3 - Psychiatric Exam Psychiatric exam: Normal Affect, Normal Mood - Skin Skin Exam: Dry, Intact, Normal Color Results - Vital Signs Recent Vital Signs: Last Vital Signs Temp 99.0 F 10/12/18 06:44 Pulse 94 H 10/12/18 07:52 Resp 18 10/12/18 07:52 BP 98/46 L 10/12/18 07:52 Pulse Ox 100 10/12/18 08:38 - Labs Result Diagrams: 10/12/18 07:52 10/12/18 07:52 Labs: Laboratory Results - last 24 hr 10/12/18 10/12/18 10/12/18 07:52 07:52 07:52 WBC 24.5 H D RBC 2.04 L Hgb 5.5 L* D Hct 17.9 L MCV 87.7 MCH 26.7 L MCHC 30.5 L RDW 17.2 H Plt Count 85 L MPV 10.3 Neut % (Auto) 83.7 H Lymph % (Auto) 2.9 L [place] % (Auto) 13.2 H Eos % (Auto) 0.1 Baso % (Auto) 0.1 Neut # (Auto) 20.6 H Lymph # (Auto) 0.7 L [place] # (Auto) 3.2 H Eos # (Auto) 0.0 Baso # (Auto) 0.0 Neutrophils % (Manual) 52 Band Neutrophils % 42 H* Lymphocytes % (Manual) 2 L Monocytes % (Manual) 4 Nucleated RBC % 2 H Platelet Estimate Decreased L Polychromasia Slight Hypochromasia (manual) Moderate Anisocytosis (manual) Slight Target Cells Slight Ovalocytes Slight [place] Cells Slight Schistocytes Slight PT 29.3 H INR 2.7 APTT 56 H Sodium 130 L Potassium 3.0 L Chloride 106 Carbon Dioxide 11 L* D Anion Gap 16 BUN 18 Creatinine 2.0 H Est GFR ( Amer) 45 Est GFR (Non-Af Amer) 37 Random Glucose 62 L D Calcium 7.0 L Total Bilirubin 2.2 H AST 90 H D ALT 24 Alkaline Phosphatase 100 Ammonia Troponin I 0.0280 NT-Pro-B Natriuret Pep 4070 H Total Protein 5.1 L Albumin 1.7 L D Globulin 3.4 Albumin/Globulin Ratio 0.5 L Lipase 115 Blood Type Antibody Screen 10/12/18 10/12/18 07:53 08:15 WBC RBC Hgb Hct MCV MCH MCHC RDW Plt Count MPV Neut % (Auto) Lymph % (Auto) [place] % (Auto) Eos % (Auto) Baso % (Auto) Neut # (Auto) Lymph # (Auto) [place] # (Auto) Eos # (Auto) Baso # (Auto) Neutrophils % (Manual) Band Neutrophils % Lymphocytes % (Manual) Monocytes % (Manual) Nucleated RBC % Platelet Estimate Polychromasia Hypochromasia (manual) Anisocytosis (manual) Target Cells Ovalocytes Cris Cells Schistocytes PT INR APTT Sodium Potassium Chloride Carbon Dioxide Anion Gap BUN Creatinine Est GFR ( Amer) Est GFR (Non-Af Amer) Random Glucose Calcium Total Bilirubin AST ALT Alkaline Phosphatase Ammonia 20 D Troponin I NT-Pro-B Natriuret Pep Total Protein Albumin Globulin Albumin/Globulin Ratio Lipase Blood Type O POSITIVE Antibody Screen Negative Assessment & Plan - Assessment and Plan (Free Text) Assessment: 43 year old male w/ PMH of asthma, gastritis (h pylori), GI ulcer, portal HTN, liver failure with cirrhosis, pancreatitis, and history of ascites with paracentesis admitted to ICU for abdominal pain. On labs patient was noted to be anemic with a hgb of 5.5, elevated creatinine, elevated INR, hypokalemia/hyponatremia. On admission vitals patient was noted to be tachycardic and hypotensive. Neuro AAOx3 Pulm O2 at 100 percent on room air; No active issues CV Fluids held in the setting of low blood pressure due to ascties Blood products will be transfused instead GI Paracentesis with fluid studies will be done today SBP ppx- rocephin 1 gm IVPB daily Consider albumin Renal Fluids given as blood products and ID drugs Elevated creatinine likely in the setting of third spacing with ascites KCl oral 40meq; Kcl 10meq x 2 Repeat CMP in AM Heme 2 units of pRBCs 1 unit of FFP for elevated INR ID Sepsis criteria, no fluid challenge as patient abdomen distended likely 2/2 ascities due to history of cirrhosis Last paracentesis 10 days ago; Paracentesis planned for today with ICU SBP ppx: Cefotaxime 1 x ED; Rochepin 1 gm IVPB daily PGY-1 [facility] d/w Dr. Narvaez
[2018-10-12 09:44] LABS: VENOUS BLOOD GAS BASE EXCESS -13.1 mmol/L (0.0-2.0); VENOUS BLOOD GAS PCO2 21 mmHg (40-60); VENOUS BLOOD GAS PO2 39 mm/Hg (30-55); VENOUS BLOOD PH 7.32 (7.32-7.43)
--- NOTE | 2018-10-12 10:42 | RAD ---
Date of service: 10/12/2018 PROCEDURE: CHEST RADIOGRAPH, 1 VIEW HISTORY: abd pain COMPARISON: 09/22/2018 FINDINGS: LUNGS: No infiltrate. Linear opacity mid right lung laterally, nonspecific. Possible focal atelectasis. Not seen on prior examination. PLEURA: No pneumothorax or pleural fluid seen. CARDIOVASCULAR: No aortic atherosclerotic calcification present. Normal. OSSEOUS STRUCTURES: No significant abnormalities. VISUALIZED UPPER ABDOMEN: Normal. OTHER FINDINGS: None. IMPRESSION: Nonspecific linear opacity lateral mid right lung, possibly subsegmental atelectasis. Otherwise unremarkable.
[2018-10-12] MEDS: Potassium Chloride 20 mEq ER Tab PO SCH (10:56)
--- NOTE | 2018-10-12 12:23 | PCM.SEPTIC ---
Sepsis Progress Note - Reassessment Type Date of Evaluation: 10/12/18 Time of Evaluation: 12:22 Reassessment Type: Non-invasive reassessment - Non Invasive Reassessment Were the most recent vital sign reviewed: Yes Vital Sign (Latest): Temp Pulse Resp BP Pulse Ox 97.6 F 85 16 89/56 L 100 10/12/18 11:58 10/12/18 11:56 10/12/18 11:56 10/12/18 11:56 10/12/18 11:56 Cardiovascular: Yes: Regular Rate, Rhythm. No: Edema, Bradycardia, Tachycardia Respiratory: Yes: Normal Breath Sounds. No: Decreased Breath Sounds, Accessory Muscle Use, Respiratory Distress Capillary Refill: Normal (Less than 2 sec) Skin: Normal Color, Dry Was a passive leg raise performed or was a fluid challenge performed within 6 hrs of the initial fluid bolus: No Fluid Challenge performed: No
--- NOTE | 2018-10-12 12:37 | CP.PCM.HP ---
Past Patient History - Infectious Disease Hx of Infectious Diseases: None - Past Medical History & Family History Past Medical History?: Yes - Past Social History Smoking Status: Never Smoked - CARDIAC Hx Hypertension: Yes (PORTAL) - PULMONARY Hx Respiratory Disorders: No Hx Pneumonia: Yes - NEUROLOGICAL Hx Seizures: Yes (alcohol related) - HEENT Hx HEENT Problems: No - RENAL Hx Chronic Kidney Disease: No - ENDOCRINE/METABOLIC Hx Endocrine Disorders: No - HEMATOLOGICAL/ONCOLOGICAL Hx Anemia: Yes Hx Cirrhosis: Yes - INTEGUMENTARY Hx Dermatological Problems: No - MUSCULOSKELETAL/RHEUMATOLOGICAL Hx Falls: No - GASTROINTESTINAL Hx Gastritis: Yes (+ H. PYLORII) Hx Pancreatitis: Yes - GENITOURINARY/GYNECOLOGICAL Hx Genitourinary Disorders: No - PSYCHIATRIC Hx Substance Use: No - SURGICAL HISTORY Hx Surgeries: Yes Other/Comment: Endoscopy - ANESTHESIA Hx Anesthesia: Yes Hx Anesthesia Reactions: No Meds Allergies/Adverse Reactions: Allergies Allergy/AdvReac Type Severity Reaction Status Date / Time No Known Allergies Allergy Verified 09/22/18 17:33 Physical Exam - Constitutional Appears: Well - Head Exam Head Exam: ATRAUMATIC, NORMAL INSPECTION, NORMOCEPHALIC - Eye Exam Eye Exam: EOMI, Normal appearance, PERRL Pupil Exam: NORMAL ACCOMODATION, PERRL - ENT Exam ENT Exam: Mucous Membranes Moist, Normal Exam - Neck Exam Neck exam: Positive for: Normal Inspection - Respiratory Exam Respiratory Exam: Decreased Breath Sounds - Cardiovascular Exam Cardiovascular Exam: REGULAR RHYTHM, +S1, +S2 - GI/Abdominal Exam GI & Abdominal Exam: Diminished Bowel Sounds, Soft - Rectal Exam Rectal Exam: Deferred Results - Vital Signs Recent Vital Signs: Last Vital Signs Temp 97.6 F 10/12/18 11:58 Pulse 85 10/12/18 11:56 Resp 16 10/12/18 11:56 BP 89/56 L 10/12/18 11:56 Pulse Ox 100 10/12/18 11:56 - Labs Result Diagrams: 10/12/18 07:52 10/12/18 07:52 Labs: Laboratory Results - last 24 hr 10/12/18 10/12/18 10/12/18 07:52 07:52 07:52 WBC 24.5 H D RBC 2.04 L Hgb 5.5 L* D Hct 17.9 L MCV 87.7 MCH 26.7 L MCHC 30.5 L RDW 17.2 H Plt Count 85 L MPV 10.3 Neut % (Auto) 83.7 H Lymph % (Auto) 2.9 L [place] % (Auto) 13.2 H Eos % (Auto) 0.1 Baso % (Auto) 0.1 Neut # (Auto) 20.6 H Lymph # (Auto) 0.7 L [place] # (Auto) 3.2 H Eos # (Auto) 0.0 Baso # (Auto) 0.0 Neutrophils % (Manual) 52 Band Neutrophils % 42 H* Lymphocytes % (Manual) 2 L Monocytes % (Manual) 4 Nucleated RBC % 2 H Platelet Estimate Decreased L Polychromasia Slight Hypochromasia (manual) Moderate Anisocytosis (manual) Slight Target Cells Slight Ovalocytes Slight [place] Cells Slight Schistocytes Slight PT 29.3 H INR 2.7 APTT 56 H pO2 VBG pH VBG pCO2 VBG HCO3 VBG Total CO2 VBG O2 Sat (Calc) VBG Base Excess VBG Potassium Glucose Lactate Crit Value Called To Crit Value Called By Crit Value Read Back Blood Gas Notified Time Sodium 130 L Potassium 3.0 L Chloride 106 Carbon Dioxide 11 L* D Anion Gap 16 BUN 18 Creatinine 2.0 H Est GFR ( Amer) 45 Est GFR (Non-Af Amer) 37 Random Glucose 62 L D Calcium 7.0 L Total Bilirubin 2.2 H AST 90 H D ALT 24 Alkaline Phosphatase 100 Ammonia Troponin I 0.0280 NT-Pro-B Natriuret Pep 4070 H Total Protein 5.1 L Albumin 1.7 L D Globulin 3.4 Albumin/Globulin Ratio 0.5 L Lipase 115 Venous Blood Potassium Blood Type Antibody Screen 10/12/18 10/12/18 10/12/18 07:53 08:15 09:36 WBC RBC Hgb Hct MCV MCH MCHC RDW Plt Count MPV Neut % (Auto) Lymph % (Auto) [place] % (Auto) Eos % (Auto) Baso % (Auto) Neut # (Auto) Lymph # (Auto) [place] # (Auto) Eos # (Auto) Baso # (Auto) Neutrophils % (Manual) Band Neutrophils % Lymphocytes % (Manual) Monocytes % (Manual) Nucleated RBC % Platelet Estimate Polychromasia Hypochromasia (manual) Anisocytosis (manual) Target Cells Ovalocytes Cris Cells Schistocytes PT INR APTT pO2 39 VBG pH 7.32 VBG pCO2 21 L VBG HCO3 13.9 VBG Total CO2 11.4 L VBG O2 Sat (Calc) 75.5 H VBG Base Excess -13.1 L VBG Potassium 2.8 L Glucose 73 L Lactate 6.0 H* Crit Value Called To Dr.davis don Crit Value Called By Naveed garcia,clarence Crit Value Read Back Y Blood Gas Notified Time 950 Sodium 131.0 L Potassium Chloride 106.0 Carbon Dioxide Anion Gap BUN Creatinine Est GFR ( Amer) Est GFR (Non-Af Amer) Random Glucose Calcium Total Bilirubin AST ALT Alkaline Phosphatase Ammonia 20 D Troponin I NT-Pro-B Natriuret Pep Total Protein Albumin Globulin Albumin/Globulin Ratio Lipase Venous Blood Potassium 2.8 L Blood Type O POSITIVE Antibody Screen Negative
[2018-10-12] MEDS ORDERED: Dextrose 50% SYRINGE Inj (50 ml) IV STA ×2 (15:10→18:24)
--- NOTE | 2018-10-12 15:46 | US ---
Date of service: 10/12/2018 PROCEDURE: Limited abdominal ultrasound HISTORY: ASCITES, abdominal distention COMPARISON: Not available TECHNIQUE: Transabdominal FINDINGS: Ultrasound examination demonstrates moderate to large amount of ascites. No additional abnormality is demonstrated. IMPRESSION: Moderate to large amount of ascites.
[2018-10-12] MEDS ORDERED: Octreotide 1,250 MCG in Dextrose 5% In Water 250 ML SC SCH (17:30)
[2018-10-12] MEDS: Pantoprazole 80 MG in Sodium Chloride 0.9% 100 ML IVP SCH (18:05)
[2018-10-12 18:10] LABS: SQUAMOUS EPITHIAL < 1 /hpf (0-5); URINE BACTERIA RARE (<OCC); URINE BILIRUBIN NEGATIVE (NEGATIVE); URINE BLOOD NEGATIVE (NEGATIVE); URINE CLARITY Clear (Clear); URINE COLOR Yellow (YELLOW); URINE GLUCOSE (UA) NORMAL (Normal); URINE LEUKOCYTE ESTERASE NEG Leu/uL (Negative); URINE PROTEIN NEGATIVE (NEGATIVE); URINE UROBILINOGEN NORMAL mg/dL (0.2-1.0)
--- NOTE | 2018-10-12 18:34 | RAD ---
Date of service: 10/12/2018 HISTORY: cough COMPARISON: 07/25/2018 02/17/2015 CT thorax documenting cavitary mass left upper lobe FINDINGS: LUNGS: Left upper lobe infiltrate/mass. This finding has been seen on prior chest radiographs and CT scans over the last greater than 3 years. PLEURA: No significant pleural effusion identified, no pneumothorax apparent. CARDIOVASCULAR: No atherosclerotic calcification present Normal. OSSEOUS STRUCTURES: No significant abnormalities. VISUALIZED UPPER ABDOMEN: Normal. OTHER FINDINGS: None. IMPRESSION: No active disease.
[2018-10-12] MEDS ORDERED: DiphenhydrAMINE 50 mg/ml Inj IVP STA (18:46)
[2018-10-12] MEDS ORDERED: MethylPREDNISolone 40 mg Vial IVP STA (18:48)
[2018-10-12] MEDS ORDERED: Albumin Human 25% (12.5 gm/50 ml) IV ONE (18:52)
--- NOTE | 2018-10-12 19:10 | PCM.PROC ---
Procedures Attestation:: I certify that I have explained the specified Operation(s) or Procedure(s), risks, benefits and reasonable alternatives to the Patient and/or other person responsible. The opportunity was given to ask questions and all questions answered - Paracentesis Consent Obtained: written consent Time Out Performed: Yes Indication: Ascites, possible spontaneous bacterial peritonitis Procedure: therapeutic paracentesis, diagnostic paracentesis Location: LLQ Local Anesthetic Used: lidocaine 1% (Patient vital signs stable, Patient tolerated procedure well, approx 3l of kat urine drained)
[2018-10-12] MEDS: Albumin Human 25% (12.5 gm/50 ml) IV SCH (21:44)
[2018-10-13] MEDS ORDERED: Dextrose 50% SYRINGE Inj (50 ml) IV STA (00:05)
[2018-10-13] MEDS: Albumin Human 25% (12.5 gm/50 ml) IV SCH ×3 (03:50→20:16)
[2018-10-13] MEDS: Pantoprazole 80 MG in Sodium Chloride 0.9% 100 ML IVP SCH ×3 (05:55→20:52)
[2018-10-13 06:33] LABS: ARTERIAL BLOOD GAS HCO3 14.1 mmol/L (21-28); ARTERIAL BLOOD GAS O2 SAT 100.2 % (95-98); ARTERIAL BLOOD GAS PCO2 17 mm/Hg (35-45); ARTERIAL BLOOD GAS PH 7.34 (7.35-7.45); ARTERIAL BLOOD GAS PO2 89 mm/Hg (80-100); ARTERIAL BLOOD GAS TCO2 9.7 mmol/L (22-28)
[2018-10-13 06:34] LABS: BASO % 0.1 % (0.0-2.0); EOS # 4.6 K/uL (0.0-0.7); EOS % 16.8 % (0.0-4.0); HEMOGLOBIN 6.6 g/dL (12.0-18.0); LYMPH # 0.3 K/uL (1.0-4.3); LYMPH % 1.2 % (20.0-40.0); MEAN CELL VOLUME 87.7 fL (80.0-94.0); MEAN CORPUSCULAR HEMOGLOBIN 28.6 pg (27.0-31.0); MEAN CORPUSCULAR HGB CONC 32.6 g/dL (33.0-37.0); MEAN PLATELET VOLUME 11.8 fL (7.2-11.7); MONO # 0.8 K/uL (0.0-0.8); NEUT # 21.6 K/uL (1.8-7.0); NEUT % 78.9 % (50.0-75.0); NRBC % 2.5 % (0.0-2.0); RBC 2.32 Mil/uL (4.40-5.90); WHITE BLOOD COUNT 27.4 K/uL (4.8-10.8)
[2018-10-13] MEDS ORDERED: Albumin Human 25% (12.5 gm/50 ml) IV ONE (06:51)
[2018-10-13] MEDS ORDERED: Sodium Chloride 0.9% 500 ML IV ONE (06:52)
[2018-10-13 06:58] LABS: ALB/GLOB RATIO 0.7 (1.0-2.1); ALBUMIN 2.1 g/dL (3.5-5.0); CALCIUM 7.2 mg/dl (8.6-10.4)
[2018-10-13 07:00] LABS: PLATELET COUNT 28 K/uL (130-400)
[2018-10-13 07:28] LABS: BODY FLUID TYPE PERITONEAL/ASCITES
[2018-10-13 08:09] LABS: BANDS 27 % (0-2); LYMPHOCYTE 1 % (20-40); MONOCYTE 8 % (0-10); NEUTROPHIL 64 % (50-75); NUCLEATED RED BLOOD CELL 1 % (0-0); PLATELET ESTIMATE MARKEDLY DECREASED (NORMAL); TOTAL CELLS COUNTED 100
[2018-10-13 08:10] LABS: ANISOCYTOSIS SLIGHT; HYPOCHROMIC MODERATE; POLYCHROMIC SLIGHT
[2018-10-13 08:11] LABS: BURR CELLS SLIGHT; POIKILOCYTOSIS SLIGHT; TOXIC GRANULATION PRESENT
[2018-10-13 08:12] LABS: ACANTHOCYTES SLIGHT
--- NOTE | 2018-10-13 08:57 | PCM.PROC ---
Procedures Attestation:: I certify that I have explained the specified Operation(s) or Procedure(s), risks, benefits and reasonable alternatives to the Patient and/or other person responsible. The opportunity was given to ask questions and all questions answered - Central Line Placement Right Internal Jugular Triple Lumen Catheter Aseptic technique was employed throughout the procedure: Full sterile barriers (mask, hair cover, sterile gown, sterile gloves), Chloraprep Antiseptic: 30 sec ond prep for IJ or SC sites CVP Time Out Performed: Yes Pt. Placed on Pulse Ox Monitor: Yes Central Line Prep: Chlorhexidine-Alcohol Combination Local Anesthesia Used: Lidocaine 1% Amount of Anesthesia Used (mls): 5 Ultrasound Used for Placement: Yes Central Line Lumen Inserted: triple Central Line Length: 20 cm Post Procedure: Sutured in Place, Good Blood Return, All Ports Aspirated, Flushed, Capped, Sterile Dressing Applied Secured by: Suture Post procedure dressing: Gauze, Clear vapor permeable, Chlorhexidine disc (B iopatch) Post Procedure X-Ray: Yes Patient Tolerated Procedure: Well Immediate Complications: None
[2018-10-13 08:59] LABS: BF GROSS APPEARANCE CLEAR (CLEAR); BODY FLUID MONO/MACROPHAGE 3 % (0-0); BODY FLUID TOTAL COUNT 100 (0-0)
[2018-10-13] MEDS: Phytonadione 10 mg/ml Inj (Adult) IV SCH (09:07)
[2018-10-13 09:28] LABS: EOS # 4.1 K/uL (0.0-0.7); LYMPH # 0.5 K/uL (1.0-4.3); LYMPH % 1.8 % (20.0-40.0); MEAN CELL VOLUME 86.9 fL (80.0-94.0); MEAN CORPUSCULAR HEMOGLOBIN 28.4 pg (27.0-31.0); MEAN CORPUSCULAR HGB CONC 32.6 g/dL (33.0-37.0); MEAN PLATELET VOLUME 10.6 fL (7.2-11.7); MONO # 3.2 K/uL (0.0-0.8); MONO % 12.5 % (0.0-10.0); NEUT % 69.7 % (50.0-75.0); NRBC % 0.8 % (0.0-2.0); RBC 2.03 Mil/uL (4.40-5.90); RED CELL DISTRIBUTION WIDTH 16.1 % (11.5-14.5); WHITE BLOOD COUNT 25.9 K/uL (4.8-10.8)
[2018-10-13] MEDS ORDERED: Sodium Bicarbonate 8.4% 150 MEQ in Dextrose 5% In Water 1,000 ML IV SCH (09:30)
[2018-10-13 09:45] LABS: HEMOGLOBIN 5.8 g/dL (12.0-18.0)
[2018-10-13] MEDS: Octreotide 1,250 MCG in Dextrose 5% In Water 250 ML IV SCH (09:53)
[2018-10-13] MEDS ORDERED: Pantoprazole 40 mg EC Tab PO SCH (10:00)
[2018-10-13] MEDS ORDERED: Magnesium Oxide 400 mg Tab UD PO SCH (10:00)
[2018-10-13] MEDS ORDERED: Multiple Vitamins Tab PO SCH (10:00)
[2018-10-13] MEDS: Vasopressin 40 UNITS in Dextrose 5% In Water 38 ML IV PRN ×2 (10:09→17:39)
[2018-10-13 10:11] LABS: PROTHROMBIN TIME 55.7 SECONDS (9.7-12.2)
[2018-10-13 10:12] LABS: INR 5.1
--- NOTE | 2018-10-13 10:17 | RAD ---
HISTORY: central line COMPARISON: Chest x-ray performed 10/12/18 TECHNIQUE: Chest, one view. FINDINGS: Right IJ approach central venous catheter extends the cavoatrial junction. Numerous external wires and leads obscure evaluation of the underlying parenchyma. LUNGS: Left upper lobe consolidation/mass as seen on prior study. Patchy infiltrates involving the inferior right upper lobe and right hilar/infrahilar regions. PLEURA: No significant pleural effusion identified. No definite pneumothorax . CARDIOVASCULAR: Heart size appears within normal limits. OSSEOUS STRUCTURES: No acute osseous abnormality identified. VISUALIZED UPPER ABDOMEN: Unremarkable. OTHER FINDINGS: None. IMPRESSION: Right IJ approach central venous catheter extends expected location of the cavoatrial junction. Left upper lobe consolidation/mass re-identified. Patchy infiltrates involving the inferior right upper lobe and right hilar/infrahilar regions.
[2018-10-13] MEDS ORDERED: DiphenhydrAMINE 50 mg/ml Inj IVP STA (10:52)
[2018-10-13] MEDS: Potassium Chloride 20 mEq ER Tab PO SCH (11:41)
--- NOTE | 2018-10-13 11:46 | CP.CCUPN ---
CCU Subjective - Physician Review Subjective (Free Text): Patient awake confused, altered 10/13/18 11:44 Critical Care Time Spent (in minutes): 67 CCU Objective - Vital Signs / Intake & Output Vital Signs (Last 4 hours): Vital Signs Temp Pulse Resp BP Pulse Ox 10/13/18 11:32 81 19 79/52 L 89 L 10/13/18 10:09 96 H 21 76/42 L 99 10/13/18 09:00 97.6 F 10/13/18 08:01 97 H 18 75/47 L 100 10/13/18 08:00 98 H 19 99 Intake and Output (Last 8hrs): Intake & Output 10/12/18 10/13/18 10/13/18 22:59 06:59 14:59 Intake Total 1070 170 120 Output Total 3400 150 Balance -2330 170 -30 Intake: IV 35 Intake, IV Amount 95 170 85 Left External Jugular 50 50 40 Left Forearm 45 120 45 Blood Product 975 Red Blood Cells Cpd As1 325 Lr Unit [id number] Output: Urine 400 150 Urethral (Avery) 400 150 Other 3000 - Physical Exam Head: Positive for: Atraumatic, Normocephalic Conjunctiva: Positive for: Icteric Neck: Positive for: Normal Range of Motion Respiratory/Chest: Positive for: Clear to Auscultation, Good Air Exchange, Accessory Muscle Use. Negative for: Respiratory Distress, Retracting, Tachypneic Cardiovascular: Positive for: Regular Rate and Rhythm, Normal S1, S2 Abdomen: Positive for: Distention. Negative for: Tenderness, Peritoneal Signs, Guarding Lower Extremity: Positive for: Edema Skin: Positive for: Warm, Dry Psychiatric: Positive for: Alert - Medications Active Medications: Active Medications Generic Name Dose Route Start Last Admin Trade Name Freq PRN Reason Stop Dose Admin Albumin Human 12.5 gm 10/12/18 19:15 10/13/18 10:43 Albumin Human 25% (12.5 Gm/50 Ml) IV 10/15/18 19:16 12.5 gm Q8H SYLVIA Administration Folic Acid 1 mg 10/13/18 10:00 10/13/18 11:41 Folic Acid PO Not Given DAILY SYLVIA Ceftriaxone Sodium 1 gm/ 100 mls @ 100 mls/hr 10/12/18 12:00 10/12/18 11:48 Sodium Chloride IVPB 100 mls/hr Q24H SYLVIA Administration Protocol Pantoprazole Sodium 80 mg/ 100 mls @ 10 mls/hr 10/12/18 17:30 10/13/18 05:55 Sodium Chloride IVP 10 mls/hr .Q10H SYLVIA Administration 8 MG/HR Dextrose 1,000 mls @ 40 mls/hr 10/13/18 07:00 10/13/18 07:46 Dextrose 10% In Water IV 40 mls/hr .Q24H SYLVIA Administration Octreotide Acetate 1,250 mcg/ 252.5 mls @ 10.1 mls/hr 10/13/18 09:15 10/13/18 09:53 Dextrose IV Not Given .Q24H SYLVIA 50 MCG/HR Norepinephrine Bitartrate 4 mg 250 mls @ 15 mls/hr 10/13/18 08:55 10/13/18 11:40 / Sodium Chloride IV 8 mcg/min .[id number] PRN 30 mls/hr TITRATE PER MD ORDER Titration Protocol 4 MCG/MIN Vasopressin 40 units/ Dextrose 40 mls @ 2.4 mls/hr 10/13/18 09:00 10/13/18 11:41 IV 0.08 units/min .[id number] PRN 4.8 mls/hr PER TITRATION PROTOCOL Titration Protocol 0.04 UNITS/MIN Sodium Bicarbonate 150 meq/ 1,150 mls @ 75 mls/hr 10/13/18 09:30 10/13/18 09:54 Dextrose IV 75 mls/hr .[id number] SYLVIA Administration Lactulose 20 gm 10/12/18 18:15 10/13/18 06:55 Enulose PO 20 gm Q12H SYLVIA Administration Phytonadione 10 mg 10/13/18 08:30 10/13/18 09:07 Vitamin K Inj IV 10/15/18 08:31 10 mg Q24H SYLVIA Administration Potassium Chloride 40 meq 10/12/18 10:15 10/13/18 11:41 K-Dur 20 Meq Er Tab PO Not Given DAILY SYLVIA Rifaximin 550 mg 10/13/18 10:00 10/13/18 11:41 Xifaxan PO Not Given BID SYLVIA Protocol - Patient Studies Lab Studies: Microbiology Studies 10/12/18 10:28 Blood Culture - Preliminary Blood-Thru Central Line NO GROWTH AFTER 24 HOURS 10/12/18 10:11 Blood Culture - Preliminary Blood-Thru Central Line NO GROWTH AFTER 24 HOURS Lab Studies 10/13/18 10/13/18 10/13/18 Range/Units 09:24 09:24 09:24 WBC 25.9 H (4.8-10.8) K/uL RBC 2.03 L (4.40-5.90) Mil/uL Hgb 5.8 L* (12.0-18.0) g/dL Hct 17.7 L (35.0-51.0) % MCV 86.9 (80.0-94.0) fL MCH 28.4 (27.0-31.0) pg MCHC 32.6 L (33.0-37.0) g/dL RDW 16.1 H (11.5-14.5) % Plt Count 22 L* (130-400) K/uL MPV 10.6 (7.2-11.7) fL Neut % (Auto) 69.7 (50.0-75.0) % Lymph % (Auto) 1.8 L (20.0-40.0) % [place] % (Auto) 12.5 H (0.0-10.0) % Eos % (Auto) 16.0 H (0.0-4.0) % Baso % (Auto) 0.0 (0.0-2.0) % Neut # (Auto) 18.0 H (1.8-7.0) K/uL Lymph # (Auto) 0.5 L (1.0-4.3) K/uL [place] # (Auto) 3.2 H (0.0-0.8) K/uL Eos # (Auto) 4.1 H (0.0-0.7) K/uL Baso # (Auto) 0.0 (0.0-0.2) K/uL Neutrophils % (Manual) (50-75) % Band Neutrophils % (0-2) % Lymphocytes % (Manual) (20-40) % Monocytes % (Manual) (0-10) % Nucleated RBC % (0-0) % Toxic Granulation Platelet Estimate (NORMAL) Polychromasia Hypochromasia (manual) Poikilocytosis (manual Anisocytosis (manual) Cris Cells Acanthocytes (Spur) PT 55.7 H D (9.7-12.2) SECONDS INR 5.1 H* D APTT 69 H D (21-34) SECONDS Puncture Site pCO2 (35-45) mm/Hg pO2 (80-100) mm/Hg HCO3 (21-28) mmol/L ABG pH (7.35-7.45) ABG Total CO2 (22-28) mmol/L ABG O2 Saturation (95-98) % ABG Base Excess (-2.0-3.0) mmol/L Arnold Test ABG Potassium (3.6-5.2) mmol/L A-a O2 Difference mm/Hg Respiratory Index Sodium (132-148) mmol/l Chloride (98-107) mmol/L Glucose (75-110) mg/dl Lactate (0.7-2.1) mmol/L Liter Flow FiO2 % Crit Value Called To Crit Value Called By Crit Value Read Back Blood Gas Notified Time Potassium (3.6-5.2) mmol/L Carbon Dioxide (22-30) mmol/L Anion Gap (10-20) BUN (9-20) mg/dL Creatinine (0.8-1.5) mg/dL Est GFR ( Amer) Est GFR (Non-Af Amer) POC Glucose (mg/dL) (65-110) mg/dL Random Glucose (75-110) mg/dL Lactic Acid 6.6 H* (0.7-2.1) mmol/L Calcium (8.6-10.4) mg/dl Phosphorus (2.5-4.5) mg/dL Magnesium (1.6-2.3) mg/dL Total Bilirubin (0.2-1.3) mg/dL AST (17-59) U/L ALT (21-72) U/L Alkaline Phosphatase (38-126) U/L Total Protein (6.3-8.3) g/dL Albumin (3.5-5.0) g/dL Globulin (2.2-3.9) gm/dL Albumin/Globulin Ratio (1.0-2.1) Arterial Blood Potassium (3.6-5.2) mmol/L Urine Color (YELLOW) Urine Clarity (Clear) Urine pH (5.0-8.0) Ur Specific [place] (1.003-1.030) Urine Protein (NEGATIVE) mg/dL Urine Glucose (UA) (Normal) mg/dL Urine Ketones (NEGATIVE) mg/dL Urine Blood (NEGATIVE) Urine Nitrate (NEGATIVE) Urine Bilirubin (NEGATIVE) Urine Urobilinogen (0.2-1.0) mg/dL Ur Leukocyte Esterase (Negative) Rita/uL Urine WBC (Auto) (0-5) /hpf Ur Squamous Epith Cells (0-5) /hpf Urine Bacteria (<OCC) Fluid Source Fluid Appearance (CLEAR) Fluid WBC (0.0-300.0) /mm3 Fluid RBC (0.0-0.0) /mm3 Fluid Tot Cell Count (0-0) Fluid Neutrophils (0-0) % Fluid Lymphocytes (0-0) % Fld Monocyte/Macrophag (0-0) % Fluid Comment Blood Type Antibody Screen 10/13/18 10/13/18 10/13/18 Range/Units 06:52 06:21 06:19 WBC 27.4 H (4.8-10.8) K/uL RBC 2.32 L (4.40-5.90) Mil/uL Hgb 6.6 L (12.0-18.0) g/dL Hct 20.3 L (35.0-51.0) % MCV 87.7 (80.0-94.0) fL MCH 28.6 (27.0-31.0) pg MCHC 32.6 L (33.0-37.0) g/dL RDW 16.0 H (11.5-14.5) % Plt Count 28 L* D (130-400) K/uL MPV 11.8 H (7.2-11.7) fL Neut % (Auto) 78.9 H (50.0-75.0) % Lymph % (Auto) 1.2 L (20.0-40.0) % [place] % (Auto) 3.0 (0.0-10.0) % Eos % (Auto) 16.8 H (0.0-4.0) % Baso % (Auto) 0.1 (0.0-2.0) % Neut # (Auto) 21.6 H (1.8-7.0) K/uL Lymph # (Auto) 0.3 L (1.0-4.3) K/uL [place] # (Auto) 0.8 (0.0-0.8) K/uL Eos # (Auto) 4.6 H (0.0-0.7) K/uL Baso # (Auto) 0.0 (0.0-0.2) K/uL Neutrophils % (Manual) 64 (50-75) % Band Neutrophils % 27 H* (0-2) % Lymphocytes % (Manual) 1 L (20-40) % Monocytes % (Manual) 8 (0-10) % Nucleated RBC % 1 H (0-0) % Toxic Granulation Present Platelet Estimate Markedly decreased L (NORMAL) Polychromasia Slight Hypochromasia (manual) Moderate Poikilocytosis (manual Slight Anisocytosis (manual) Slight Cris Cells Slight Acanthocytes (Spur) Slight PT (9.7-12.2) SECONDS INR APTT (21-34) SECONDS Puncture Site pCO2 (35-45) mm/Hg pO2 (80-100) mm/Hg HCO3 (21-28) mmol/L ABG pH (7.35-7.45) ABG Total CO2 (22-28) mmol/L ABG O2 Saturation (95-98) % ABG Base Excess (-2.0-3.0) mmol/L Arnold Test ABG Potassium (3.6-5.2) mmol/L A-a O2 Difference mm/Hg Respiratory Index Sodium 130 L (132-148) mmol/l Chloride 104 (98-107) mmol/L Glucose (75-110) mg/dl Lactate (0.7-2.1) mmol/L Liter Flow FiO2 % Crit Value Called To Crit Value Called By Crit Value Read Back Blood Gas Notified Time Potassium 3.4 L (3.6-5.2) mmol/L Carbon Dioxide 11 L* (22-30) mmol/L Anion Gap 19 (10-20) BUN 27 H (9-20) mg/dL Creatinine 2.4 H (0.8-1.5) mg/dL Est GFR ( Amer) 36 Est GFR (Non-Af Amer) 30 POC Glucose (mg/dL) 72 (65-110) mg/dL Random Glucose 61 L (75-110) mg/dL Lactic Acid (0.7-2.1) mmol/L Calcium 7.2 L (8.6-10.4) mg/dl Phosphorus 5.9 H (2.5-4.5) mg/dL Magnesium 1.8 (1.6-2.3) mg/dL Total Bilirubin 5.1 H (0.2-1.3) mg/dL AST 174 H D (17-59) U/L ALT 36 (21-72) U/L Alkaline Phosphatase 57 (38-126) U/L Total Protein 5.1 L (6.3-8.3) g/dL Albumin 2.1 L D (3.5-5.0) g/dL Globulin 3.0 (2.2-3.9) gm/dL Albumin/Globulin Ratio 0.7 L (1.0-2.1) Arterial Blood Potassium (3.6-5.2) mmol/L Urine Color (YELLOW) Urine Clarity (Clear) Urine pH (5.0-8.0) Ur Specific [place] (1.003-1.030) Urine Protein (NEGATIVE) mg/dL Urine Glucose (UA) (Normal) mg/dL Urine Ketones (NEGATIVE) mg/dL Urine Blood (NEGATIVE) Urine Nitrate (NEGATIVE) Urine Bilirubin (NEGATIVE) Urine Urobilinogen (0.2-1.0) mg/dL Ur Leukocyte Esterase (Negative) Rita/uL Urine WBC (Auto) (0-5) /hpf Ur Squamous Epith Cells (0-5) /hpf Urine Bacteria (<OCC) Fluid Source Fluid Appearance (CLEAR) Fluid WBC (0.0-300.0) /mm3 Fluid RBC (0.0-0.0) /mm3 Fluid Tot Cell Count (0-0) Fluid Neutrophils (0-0) % Fluid Lymphocytes (0-0) % Fld Monocyte/Macrophag (0-0) % Fluid Comment Blood Type Antibody Screen 10/13/18 10/13/18 10/13/18 Range/Units 06:16 00:29 00:05 WBC (4.8-10.8) K/uL RBC (4.40-5.90) Mil/uL Hgb (12.0-18.0) g/dL Hct (35.0-51.0) % MCV (80.0-94.0) fL MCH (27.0-31.0) pg MCHC (33.0-37.0) g/dL RDW (11.5-14.5) % Plt Count (130-400) K/uL MPV (7.2-11.7) fL Neut % (Auto) (50.0-75.0) % Lymph % (Auto) (20.0-40.0) % [place] % (Auto) (0.0-10.0) % Eos % (Auto) (0.0-4.0) % Baso % (Auto) (0.0-2.0) % Neut # (Auto) (1.8-7.0) K/uL Lymph # (Auto) (1.0-4.3) K/uL [place] # (Auto) (0.0-0.8) K/uL Eos # (Auto) (0.0-0.7) K/uL Baso # (Auto) (0.0-0.2) K/uL Neutrophils % (Manual) (50-75) % Band Neutrophils % (0-2) % Lymphocytes % (Manual) (20-40) % Monocytes % (Manual) (0-10) % Nucleated RBC % (0-0) % Toxic Granulation Platelet Estimate (NORMAL) Polychromasia Hypochromasia (manual) Poikilocytosis (manual Anisocytosis (manual) [place] Cells Acanthocytes (Spur) PT (9.7-12.2) SECONDS INR APTT (21-34) SECONDS Puncture Site Rb pCO2 17 L* (35-45) mm/Hg pO2 89 (80-100) mm/Hg HCO3 14.1 L (21-28) mmol/L ABG pH 7.34 L (7.35-7.45) ABG Total CO2 9.7 L (22-28) mmol/L ABG O2 Saturation 100.2 H (95-98) % ABG Base Excess -13.9 L (-2.0-3.0) mmol/L Arnold Test Na ABG Potassium 3.4 L (3.6-5.2) mmol/L A-a O2 Difference 118.0 mm/Hg Respiratory Index 1.3 Sodium 132.0 (132-148) mmol/l Chloride 107.0 (98-107) mmol/L Glucose 65 L (75-110) mg/dl Lactate 6.8 H* (0.7-2.1) mmol/L Liter Flow 3.0 FiO2 32.0 % Crit Value Called To R.lowe rn Crit Value Called By Austyn medical detail representative Crit Value Read Back Y Blood Gas Notified Time 633 Potassium (3.6-5.2) mmol/L Carbon Dioxide (22-30) mmol/L Anion Gap (10-20) BUN (9-20) mg/dL Creatinine (0.8-1.5) mg/dL Est GFR ( Amer) Est GFR (Non-Af Amer) POC Glucose (mg/dL) 178 H 26 L* (65-110) mg/dL Random Glucose (75-110) mg/dL Lactic Acid (0.7-2.1) mmol/L Calcium (8.6-10.4) mg/dl Phosphorus (2.5-4.5) mg/dL Magnesium (1.6-2.3) mg/dL Total Bilirubin (0.2-1.3) mg/dL AST (17-59) U/L ALT (21-72) U/L Alkaline Phosphatase (38-126) U/L Total Protein (6.3-8.3) g/dL Albumin (3.5-5.0) g/dL Globulin (2.2-3.9) gm/dL Albumin/Globulin Ratio (1.0-2.1) Arterial Blood Potassium 3.4 L (3.6-5.2) mmol/L Urine Color (YELLOW) Urine Clarity (Clear) Urine pH (5.0-8.0) Ur Specific [place] (1.003-1.030) Urine Protein (NEGATIVE) mg/dL Urine Glucose (UA) (Normal) mg/dL Urine Ketones (NEGATIVE) mg/dL Urine Blood (NEGATIVE) Urine Nitrate (NEGATIVE) Urine Bilirubin (NEGATIVE) Urine Urobilinogen (0.2-1.0) mg/dL Ur Leukocyte Esterase (Negative) Rita/uL Urine WBC (Auto) (0-5) /hpf Ur Squamous Epith Cells (0-5) /hpf Urine Bacteria (<OCC) Fluid Source Fluid Appearance (CLEAR) Fluid WBC (0.0-300.0) /mm3 Fluid RBC (0.0-0.0) /mm3 Fluid Tot Cell Count (0-0) Fluid Neutrophils (0-0) % Fluid Lymphocytes (0-0) % Fld Monocyte/Macrophag (0-0) % Fluid Comment Blood Type Antibody Screen 10/13/18 10/12/18 10/12/18 Range/Units 00:03 19:03 19:00 WBC (4.8-10.8) K/uL RBC (4.40-5.90) Mil/uL Hgb (12.0-18.0) g/dL Hct (35.0-51.0) % MCV (80.0-94.0) fL MCH (27.0-31.0) pg MCHC (33.0-37.0) g/dL RDW (11.5-14.5) % Plt Count (130-400) K/uL MPV (7.2-11.7) fL Neut % (Auto) (50.0-75.0) % Lymph % (Auto) (20.0-40.0) % [place] % (Auto) (0.0-10.0) % Eos % (Auto) (0.0-4.0) % Baso % (Auto) (0.0-2.0) % Neut # (Auto) (1.8-7.0) K/uL Lymph # (Auto) (1.0-4.3) K/uL [place] # (Auto) (0.0-0.8) K/uL Eos # (Auto) (0.0-0.7) K/uL Baso # (Auto) (0.0-0.2) K/uL Neutrophils % (Manual) (50-75) % Band Neutrophils % (0-2) % Lymphocytes % (Manual) (20-40) % Monocytes % (Manual) (0-10) % Nucleated RBC % (0-0) % Toxic Granulation Platelet Estimate (NORMAL) Polychromasia Hypochromasia (manual) Poikilocytosis (manual Anisocytosis (manual) [place] Cells Acanthocytes (Spur) PT (9.7-12.2) SECONDS INR APTT (21-34) SECONDS Puncture Site pCO2 (35-45) mm/Hg pO2 (80-100) mm/Hg HCO3 (21-28) mmol/L ABG pH (7.35-7.45) ABG Total CO2 (22-28) mmol/L ABG O2 Saturation (95-98) % ABG Base Excess (-2.0-3.0) mmol/L Arnold Test ABG Potassium (3.6-5.2) mmol/L A-a O2 Difference mm/Hg Respiratory Index Sodium (132-148) mmol/l Chloride (98-107) mmol/L Glucose (75-110) mg/dl Lactate (0.7-2.1) mmol/L Liter Flow FiO2 % Crit Value Called To Crit Value Called By Crit Value Read Back Blood Gas Notified Time Potassium (3.6-5.2) mmol/L Carbon Dioxide (22-30) mmol/L Anion Gap (10-20) BUN (9-20) mg/dL Creatinine (0.8-1.5) mg/dL Est GFR ( Amer) Est GFR (Non-Af Amer) POC Glucose (mg/dL) 28 L* 112 H (65-110) mg/dL Random Glucose (75-110) mg/dL Lactic Acid (0.7-2.1) mmol/L Calcium (8.6-10.4) mg/dl Phosphorus (2.5-4.5) mg/dL Magnesium (1.6-2.3) mg/dL Total Bilirubin (0.2-1.3) mg/dL AST (17-59) U/L ALT (21-72) U/L Alkaline Phosphatase (38-126) U/L Total Protein (6.3-8.3) g/dL Albumin (3.5-5.0) g/dL Globulin (2.2-3.9) gm/dL Albumin/Globulin Ratio (1.0-2.1) Arterial Blood Potassium (3.6-5.2) mmol/L Urine Color (YELLOW) Urine Clarity (Clear) Urine pH (5.0-8.0) Ur Specific [place] (1.003-1.030) Urine Protein (NEGATIVE) mg/dL Urine Glucose (UA) (Normal) mg/dL Urine Ketones (NEGATIVE) mg/dL Urine Blood (NEGATIVE) Urine Nitrate (NEGATIVE) Urine Bilirubin (NEGATIVE) Urine Urobilinogen (0.2-1.0) mg/dL Ur Leukocyte Esterase (Negative) Rita/uL Urine WBC (Auto) (0-5) /hpf Ur Squamous Epith Cells (0-5) /hpf Urine Bacteria (<OCC) Fluid Source Peritoneal/ascites Fluid Appearance Clear (CLEAR) Fluid WBC 43.0 (0.0-300.0) /mm3 Fluid RBC 499.0 H (0.0-0.0) /mm3 Fluid Tot Cell Count 100 H (0-0) Fluid Neutrophils 42.0 H (0-0) % Fluid Lymphocytes 55.0 H (0-0) % Fld Monocyte/Macrophag 3 H (0-0) % Fluid Comment Blood Type Antibody Screen 10/12/18 10/12/18 10/12/18 Range/Units 18:04 18:01 17:57 WBC (4.8-10.8) K/uL RBC (4.40-5.90) Mil/uL Hgb (12.0-18.0) g/dL Hct (35.0-51.0) % MCV (80.0-94.0) fL MCH (27.0-31.0) pg MCHC (33.0-37.0) g/dL RDW (11.5-14.5) % Plt Count (130-400) K/uL MPV (7.2-11.7) fL Neut % (Auto) (50.0-75.0) % Lymph % (Auto) (20.0-40.0) % [place] % (Auto) (0.0-10.0) % Eos % (Auto) (0.0-4.0) % Baso % (Auto) (0.0-2.0) % Neut # (Auto) (1.8-7.0) K/uL Lymph # (Auto) (1.0-4.3) K/uL [place] # (Auto) (0.0-0.8) K/uL Eos # (Auto) (0.0-0.7) K/uL Baso # (Auto) (0.0-0.2) K/uL Neutrophils % (Manual) (50-75) % Band Neutrophils % (0-2) % Lymphocytes % (Manual) (20-40) % Monocytes % (Manual) (0-10) % Nucleated RBC % (0-0) % Toxic Granulation Platelet Estimate (NORMAL) Polychromasia Hypochromasia (manual) Poikilocytosis (manual Anisocytosis (manual) [place] Cells Acanthocytes (Spur) PT (9.7-12.2) SECONDS INR APTT (21-34) SECONDS Puncture Site pCO2 (35-45) mm/Hg pO2 (80-100) mm/Hg HCO3 (21-28) mmol/L ABG pH (7.35-7.45) ABG Total CO2 (22-28) mmol/L ABG O2 Saturation (95-98) % ABG Base Excess (-2.0-3.0) mmol/L Arnold Test ABG Potassium (3.6-5.2) mmol/L A-a O2 Difference mm/Hg Respiratory Index Sodium (132-148) mmol/l Chloride (98-107) mmol/L Glucose (75-110) mg/dl Lactate (0.7-2.1) mmol/L Liter Flow FiO2 % Crit Value Called To Crit Value Called By Crit Value Read Back Blood Gas Notified Time Potassium (3.6-5.2) mmol/L Carbon Dioxide (22-30) mmol/L Anion Gap (10-20) BUN (9-20) mg/dL Creatinine (0.8-1.5) mg/dL Est GFR ( Amer) Est GFR (Non-Af Amer) POC Glucose (mg/dL) 65 62 L (65-110) mg/dL Random Glucose (75-110) mg/dL Lactic Acid (0.7-2.1) mmol/L Calcium (8.6-10.4) mg/dl Phosphorus (2.5-4.5) mg/dL Magnesium (1.6-2.3) mg/dL Total Bilirubin (0.2-1.3) mg/dL AST (17-59) U/L ALT (21-72) U/L Alkaline Phosphatase (38-126) U/L Total Protein (6.3-8.3) g/dL Albumin (3.5-5.0) g/dL Globulin (2.2-3.9) gm/dL Albumin/Globulin Ratio (1.0-2.1) Arterial Blood Potassium (3.6-5.2) mmol/L Urine Color Yellow (YELLOW) Urine Clarity Clear (Clear) Urine pH 5.0 (5.0-8.0) Ur Specific [place] 1.008 (1.003-1.030) Urine Protein Negative (NEGATIVE) mg/dL Urine Glucose (UA) Normal (Normal) mg/dL Urine Ketones Negative (NEGATIVE) mg/dL Urine Blood Negative (NEGATIVE) Urine Nitrate Negative (NEGATIVE) Urine Bilirubin Negative (NEGATIVE) Urine Urobilinogen Normal (0.2-1.0) mg/dL Ur Leukocyte Esterase Neg (Negative) Rita/uL Urine WBC (Auto) < 1 (0-5) /hpf Ur Squamous Epith Cells < 1 (0-5) /hpf Urine Bacteria Rare (<OCC) Fluid Source Fluid Appearance (CLEAR) Fluid WBC (0.0-300.0) /mm3 Fluid RBC (0.0-0.0) /mm3 Fluid Tot Cell Count (0-0) Fluid Neutrophils (0-0) % Fluid Lymphocytes (0-0) % Fld Monocyte/Macrophag (0-0) % Fluid Comment Blood Type Antibody Screen 10/12/18 10/12/18 10/12/18 Range/Units 15:39 15:08 12:57 WBC (4.8-10.8) K/uL RBC (4.40-5.90) Mil/uL Hgb (12.0-18.0) g/dL Hct (35.0-51.0) % MCV (80.0-94.0) fL MCH (27.0-31.0) pg MCHC (33.0-37.0) g/dL RDW (11.5-14.5) % Plt Count (130-400) K/uL MPV (7.2-11.7) fL Neut % (Auto) (50.0-75.0) % Lymph % (Auto) (20.0-40.0) % [place] % (Auto) (0.0-10.0) % Eos % (Auto) (0.0-4.0) % Baso % (Auto) (0.0-2.0) % Neut # (Auto) (1.8-7.0) K/uL Lymph # (Auto) (1.0-4.3) K/uL [place] # (Auto) (0.0-0.8) K/uL Eos # (Auto) (0.0-0.7) K/uL Baso # (Auto) (0.0-0.2) K/uL Neutrophils % (Manual) (50-75) % Band Neutrophils % (0-2) % Lymphocytes % (Manual) (20-40) % Monocytes % (Manual) (0-10) % Nucleated RBC % (0-0) % Toxic Granulation Platelet Estimate (NORMAL) Polychromasia Hypochromasia (manual) Poikilocytosis (manual Anisocytosis (manual) [place] Cells Acanthocytes (Spur) PT (9.7-12.2) SECONDS INR APTT (21-34) SECONDS Puncture Site pCO2 (35-45) mm/Hg pO2 (80-100) mm/Hg HCO3 (21-28) mmol/L ABG pH (7.35-7.45) ABG Total CO2 (22-28) mmol/L ABG O2 Saturation (95-98) % ABG Base Excess (-2.0-3.0) mmol/L Arnold Test ABG Potassium (3.6-5.2) mmol/L A-a O2 Difference mm/Hg Respiratory Index Sodium (132-148) mmol/l Chloride (98-107) mmol/L Glucose (75-110) mg/dl Lactate (0.7-2.1) mmol/L Liter Flow FiO2 % Crit Value Called To Crit Value Called By Crit Value Read Back Blood Gas Notified Time Potassium (3.6-5.2) mmol/L Carbon Dioxide (22-30) mmol/L Anion Gap (10-20) BUN (9-20) mg/dL Creatinine (0.8-1.5) mg/dL Est GFR ( Amer) Est GFR (Non-Af Amer) POC Glucose (mg/dL) 139 H 60 L (65-110) mg/dL Random Glucose (75-110) mg/dL Lactic Acid 5.8 H* (0.7-2.1) mmol/L Calcium (8.6-10.4) mg/dl Phosphorus (2.5-4.5) mg/dL Magnesium (1.6-2.3) mg/dL Total Bilirubin (0.2-1.3) mg/dL AST (17-59) U/L ALT (21-72) U/L Alkaline Phosphatase (38-126) U/L Total Protein (6.3-8.3) g/dL Albumin (3.5-5.0) g/dL Globulin (2.2-3.9) gm/dL Albumin/Globulin Ratio (1.0-2.1) Arterial Blood Potassium (3.6-5.2) mmol/L Urine Color (YELLOW) Urine Clarity (Clear) Urine pH (5.0-8.0) Ur Specific [place] (1.003-1.030) Urine Protein (NEGATIVE) mg/dL Urine Glucose (UA) (Normal) mg/dL Urine Ketones (NEGATIVE) mg/dL Urine Blood (NEGATIVE) Urine Nitrate (NEGATIVE) Urine Bilirubin (NEGATIVE) Urine Urobilinogen (0.2-1.0) mg/dL Ur Leukocyte Esterase (Negative) Rita/uL Urine WBC (Auto) (0-5) /hpf Ur Squamous Epith Cells (0-5) /hpf Urine Bacteria (<OCC) Fluid Source Fluid Appearance (CLEAR) Fluid WBC (0.0-300.0) /mm3 Fluid RBC (0.0-0.0) /mm3 Fluid Tot Cell Count (0-0) Fluid Neutrophils (0-0) % Fluid Lymphocytes (0-0) % Fld Monocyte/Macrophag (0-0) % Fluid Comment Blood Type Antibody Screen 10/12/18 Range/Units 08:15 WBC (4.8-10.8) K/uL RBC (4.40-5.90) Mil/uL Hgb (12.0-18.0) g/dL Hct (35.0-51.0) % MCV (80.0-94.0) fL MCH (27.0-31.0) pg MCHC (33.0-37.0) g/dL RDW (11.5-14.5) % Plt Count (130-400) K/uL MPV (7.2-11.7) fL Neut % (Auto) (50.0-75.0) % Lymph % (Auto) (20.0-40.0) % [place] % (Auto) (0.0-10.0) % Eos % (Auto) (0.0-4.0) % Baso % (Auto) (0.0-2.0) % Neut # (Auto) (1.8-7.0) K/uL Lymph # (Auto) (1.0-4.3) K/uL [place] # (Auto) (0.0-0.8) K/uL Eos # (Auto) (0.0-0.7) K/uL Baso # (Auto) (0.0-0.2) K/uL Neutrophils % (Manual) (50-75) % Band Neutrophils % (0-2) % Lymphocytes % (Manual) (20-40) % Monocytes % (Manual) (0-10) % Nucleated RBC % (0-0) % Toxic Granulation Platelet Estimate (NORMAL) Polychromasia Hypochromasia (manual) Poikilocytosis (manual Anisocytosis (manual) Cris Cells Acanthocytes (Spur) PT (9.7-12.2) SECONDS INR APTT (21-34) SECONDS Puncture Site pCO2 (35-45) mm/Hg pO2 (80-100) mm/Hg HCO3 (21-28) mmol/L ABG pH (7.35-7.45) ABG Total CO2 (22-28) mmol/L ABG O2 Saturation (95-98) % ABG Base Excess (-2.0-3.0) mmol/L Arnold Test ABG Potassium (3.6-5.2) mmol/L A-a O2 Difference mm/Hg Respiratory Index Sodium (132-148) mmol/l Chloride (98-107) mmol/L Glucose (75-110) mg/dl Lactate (0.7-2.1) mmol/L Liter Flow FiO2 % Crit Value Called To Crit Value Called By Crit Value Read Back Blood Gas Notified Time Potassium (3.6-5.2) mmol/L Carbon Dioxide (22-30) mmol/L Anion Gap (10-20) BUN (9-20) mg/dL Creatinine (0.8-1.5) mg/dL Est GFR ( Amer) Est GFR (Non-Af Amer) POC Glucose (mg/dL) (65-110) mg/dL Random Glucose (75-110) mg/dL Lactic Acid (0.7-2.1) mmol/L Calcium (8.6-10.4) mg/dl Phosphorus (2.5-4.5) mg/dL Magnesium (1.6-2.3) mg/dL Total Bilirubin (0.2-1.3) mg/dL AST (17-59) U/L ALT (21-72) U/L Alkaline Phosphatase (38-126) U/L Total Protein (6.3-8.3) g/dL Albumin (3.5-5.0) g/dL Globulin (2.2-3.9) gm/dL Albumin/Globulin Ratio (1.0-2.1) Arterial Blood Potassium (3.6-5.2) mmol/L Urine Color (YELLOW) Urine Clarity (Clear) Urine pH (5.0-8.0) Ur Specific [place] (1.003-1.030) Urine Protein (NEGATIVE) mg/dL Urine Glucose (UA) (Normal) mg/dL Urine Ketones (NEGATIVE) mg/dL Urine Blood (NEGATIVE) Urine Nitrate (NEGATIVE) Urine Bilirubin (NEGATIVE) Urine Urobilinogen (0.2-1.0) mg/dL Ur Leukocyte Esterase (Negative) Rita/uL Urine WBC (Auto) (0-5) /hpf Ur Squamous Epith Cells (0-5) /hpf Urine Bacteria (<OCC) Fluid Source Fluid Appearance (CLEAR) Fluid WBC (0.0-300.0) /mm3 Fluid RBC (0.0-0.0) /mm3 Fluid Tot Cell Count (0-0) Fluid Neutrophils (0-0) % Fluid Lymphocytes (0-0) % Fld Monocyte/Macrophag (0-0) % Fluid Comment Blood Type O POSITIVE Antibody Screen Negative Laboratory Results - last 24 hr 10/12/18 10/12/18 10/12/18 08:15 12:57 15:08 WBC RBC Hgb Hct MCV MCH MCHC RDW Plt Count MPV Neut % (Auto) Lymph % (Auto) [place] % (Auto) Eos % (Auto) Baso % (Auto) Neut # (Auto) Lymph # (Auto) [place] # (Auto) Eos # (Auto) Baso # (Auto) Neutrophils % (Manual) Band Neutrophils % Lymphocytes % (Manual) Monocytes % (Manual) Nucleated RBC % Toxic Granulation Platelet Estimate Polychromasia Hypochromasia (manual) Poikilocytosis (manual Anisocytosis (manual) Cris Cells Acanthocytes (Spur) PT INR APTT Puncture Site pCO2 pO2 HCO3 ABG pH ABG Total CO2 ABG O2 Saturation ABG Base Excess Arnold Test ABG Potassium A-a O2 Difference Respiratory Index Sodium Chloride Glucose Lactate Liter Flow FiO2 Crit Value Called To Crit Value Called By Crit Value Read Back Blood Gas Notified Time Potassium Carbon Dioxide Anion Gap BUN Creatinine Est GFR ( Amer) Est GFR (Non-Af Amer) POC Glucose (mg/dL) 60 L Random Glucose Lactic Acid 5.8 H* Calcium Phosphorus Magnesium Total Bilirubin AST ALT Alkaline Phosphatase Total Protein Albumin Globulin Albumin/Globulin Ratio Arterial Blood Potassium Urine Color Urine Clarity Urine pH Ur Specific [place] Urine Protein Urine Glucose (UA) Urine Ketones Urine Blood Urine Nitrate Urine Bilirubin Urine Urobilinogen Ur Leukocyte Esterase Urine WBC (Auto) Ur Squamous Epith Cells Urine Bacteria Fluid Source Fluid Appearance Fluid WBC Fluid RBC Fluid Tot Cell Count Fluid Neutrophils Fluid Lymphocytes Fld Monocyte/Macrophag Fluid Comment Blood Type O POSITIVE Antibody Screen Negative 10/12/18 10/12/18 10/12/18 15:39 17:57 18:01 WBC RBC Hgb Hct MCV MCH MCHC RDW Plt Count MPV Neut % (Auto) Lymph % (Auto) [place] % (Auto) Eos % (Auto) Baso % (Auto) Neut # (Auto) Lymph # (Auto) [place] # (Auto) Eos # (Auto) Baso # (Auto) Neutrophils % (Manual) Band Neutrophils % Lymphocytes % (Manual) Monocytes % (Manual) Nucleated RBC % Toxic Granulation Platelet Estimate Polychromasia Hypochromasia (manual) Poikilocytosis (manual Anisocytosis (manual) [place] Cells Acanthocytes (Spur) PT INR APTT Puncture Site pCO2 pO2 HCO3 ABG pH ABG Total CO2 ABG O2 Saturation ABG Base Excess Arnold Test ABG Potassium A-a O2 Difference Respiratory Index Sodium Chloride Glucose Lactate Liter Flow FiO2 Crit Value Called To Crit Value Called By Crit Value Read Back Blood Gas Notified Time Potassium Carbon Dioxide Anion Gap BUN Creatinine Est GFR ( Amer) Est GFR (Non-Af Amer) POC Glucose (mg/dL) 139 H 62 L Random Glucose Lactic Acid Calcium Phosphorus Magnesium Total Bilirubin AST ALT Alkaline Phosphatase Total Protein Albumin Globulin Albumin/Globulin Ratio Arterial Blood Potassium Urine Color Yellow Urine Clarity Clear Urine pH 5.0 Ur Specific [place] 1.008 Urine Protein Negative Urine Glucose (UA) Normal Urine Ketones Negative Urine Blood Negative Urine Nitrate Negative Urine Bilirubin Negative Urine Urobilinogen Normal Ur Leukocyte Esterase Neg Urine WBC (Auto) < 1 Ur Squamous Epith Cells < 1 Urine Bacteria Rare Fluid Source Fluid Appearance Fluid WBC Fluid RBC Fluid Tot Cell Count Fluid Neutrophils Fluid Lymphocytes Fld Monocyte/Macrophag Fluid Comment Blood Type Antibody Screen 10/12/18 10/12/18 10/12/18 18:04 19:00 19:03 WBC RBC Hgb Hct MCV MCH MCHC RDW Plt Count MPV Neut % (Auto) Lymph % (Auto) [place] % (Auto) Eos % (Auto) Baso % (Auto) Neut # (Auto) Lymph # (Auto) [place] # (Auto) Eos # (Auto) Baso # (Auto) Neutrophils % (Manual) Band Neutrophils % Lymphocytes % (Manual) Monocytes % (Manual) Nucleated RBC % Toxic Granulation Platelet Estimate Polychromasia Hypochromasia (manual) Poikilocytosis (manual Anisocytosis (manual) [place] Cells Acanthocytes (Spur) PT INR APTT Puncture Site pCO2 pO2 HCO3 ABG pH ABG Total CO2 ABG O2 Saturation ABG Base Excess Arnold Test ABG Potassium A-a O2 Difference Respiratory Index Sodium Chloride Glucose Lactate Liter Flow FiO2 Crit Value Called To Crit Value Called By Crit Value Read Back Blood Gas Notified Time Potassium Carbon Dioxide Anion Gap BUN Creatinine Est GFR ( Amer) Est GFR (Non-Af Amer) POC Glucose (mg/dL) 65 112 H Random Glucose Lactic Acid Calcium Phosphorus Magnesium Total Bilirubin AST ALT Alkaline Phosphatase Total Protein Albumin Globulin Albumin/Globulin Ratio Arterial Blood Potassium Urine Color Urine Clarity Urine pH Ur Specific [place] Urine Protein Urine Glucose (UA) Urine Ketones Urine Blood Urine Nitrate Urine Bilirubin Urine Urobilinogen Ur Leukocyte Esterase Urine WBC (Auto) Ur Squamous Epith Cells Urine Bacteria Fluid Source Peritoneal/ascites Fluid Appearance Clear Fluid WBC 43.0 Fluid RBC 499.0 H Fluid Tot Cell Count 100 H Fluid Neutrophils 42.0 H Fluid Lymphocytes 55.0 H Fld Monocyte/Macrophag 3 H Fluid Comment Blood Type Antibody Screen 10/13/18 10/13/18 10/13/18 00:03 00:05 00:29 WBC RBC Hgb Hct MCV MCH MCHC RDW Plt Count MPV Neut % (Auto) Lymph % (Auto) [place] % (Auto) Eos % (Auto) Baso % (Auto) Neut # (Auto) Lymph # (Auto) [place] # (Auto) Eos # (Auto) Baso # (Auto) Neutrophils % (Manual) Band Neutrophils % Lymphocytes % (Manual) Monocytes % (Manual) Nucleated RBC % Toxic Granulation Platelet Estimate Polychromasia Hypochromasia (manual) Poikilocytosis (manual Anisocytosis (manual) [place] Cells Acanthocytes (Spur) PT INR APTT Puncture Site pCO2 pO2 HCO3 ABG pH ABG Total CO2 ABG O2 Saturation ABG Base Excess Arnold Test ABG Potassium A-a O2 Difference Respiratory Index Sodium Chloride Glucose Lactate Liter Flow FiO2 Crit Value Called To Crit Value Called By Crit Value Read Back Blood Gas Notified Time Potassium Carbon Dioxide Anion Gap BUN Creatinine Est GFR ( Amer) Est GFR (Non-Af Amer) POC Glucose (mg/dL) 28 L* 26 L* 178 H Random Glucose Lactic Acid Calcium Phosphorus Magnesium Total Bilirubin AST ALT Alkaline Phosphatase Total Protein Albumin Globulin Albumin/Globulin Ratio Arterial Blood Potassium Urine Color Urine Clarity Urine pH Ur Specific [place] Urine Protein Urine Glucose (UA) Urine Ketones Urine Blood Urine Nitrate Urine Bilirubin Urine Urobilinogen Ur Leukocyte Esterase Urine WBC (Auto) Ur Squamous Epith Cells Urine Bacteria Fluid Source Fluid Appearance Fluid WBC Fluid RBC Fluid Tot Cell Count Fluid Neutrophils Fluid Lymphocytes Fld Monocyte/Macrophag Fluid Comment Blood Type Antibody Screen 10/13/18 10/13/18 10/13/18 06:16 06:19 06:21 WBC 27.4 H RBC 2.32 L Hgb 6.6 L Hct 20.3 L MCV 87.7 MCH 28.6 MCHC 32.6 L RDW 16.0 H Plt Count 28 L* D MPV 11.8 H Neut % (Auto) 78.9 H Lymph % (Auto) 1.2 L [place] % (Auto) 3.0 Eos % (Auto) 16.8 H Baso % (Auto) 0.1 Neut # (Auto) 21.6 H Lymph # (Auto) 0.3 L [place] # (Auto) 0.8 Eos # (Auto) 4.6 H Baso # (Auto) 0.0 Neutrophils % (Manual) 64 Band Neutrophils % 27 H* Lymphocytes % (Manual) 1 L Monocytes % (Manual) 8 Nucleated RBC % 1 H Toxic Granulation Present Platelet Estimate Markedly decreased L Polychromasia Slight Hypochromasia (manual) Moderate Poikilocytosis (manual Slight Anisocytosis (manual) Slight [place] Cells Slight Acanthocytes (Spur) Slight PT INR APTT Puncture Site Rb pCO2 17 L* pO2 89 HCO3 14.1 L ABG pH 7.34 L ABG Total CO2 9.7 L ABG O2 Saturation 100.2 H ABG Base Excess -13.9 L Arnold Test Na ABG Potassium 3.4 L A-a O2 Difference 118.0 Respiratory Index 1.3 Sodium 132.0 130 L Chloride 107.0 104 Glucose 65 L Lactate 6.8 H* Liter Flow 3.0 FiO2 32.0 Crit Value Called To [place] rn Crit Value Called By Austyn medical detail representative Crit Value Read Back Y Blood Gas Notified Time 633 Potassium 3.4 L Carbon Dioxide 11 L* Anion Gap 19 BUN 27 H Creatinine 2.4 H Est GFR ( Amer) 36 Est GFR (Non-Af Amer) 30 POC Glucose (mg/dL) Random Glucose 61 L Lactic Acid Calcium 7.2 L Phosphorus 5.9 H Magnesium 1.8 Total Bilirubin 5.1 H AST 174 H D ALT 36 Alkaline Phosphatase 57 Total Protein 5.1 L Albumin 2.1 L D Globulin 3.0 Albumin/Globulin Ratio 0.7 L Arterial Blood Potassium 3.4 L Urine Color Urine Clarity Urine pH Ur Specific [place] Urine Protein Urine Glucose (UA) Urine Ketones Urine Blood Urine Nitrate Urine Bilirubin Urine Urobilinogen Ur Leukocyte Esterase Urine WBC (Auto) Ur Squamous Epith Cells Urine Bacteria Fluid Source Fluid Appearance Fluid WBC Fluid RBC Fluid Tot Cell Count Fluid Neutrophils Fluid Lymphocytes Fld Monocyte/Macrophag Fluid Comment Blood Type Antibody Screen 10/13/18 10/13/18 10/13/18 06:52 09:24 09:24 WBC 25.9 H RBC 2.03 L Hgb 5.8 L* Hct 17.7 L MCV 86.9 MCH 28.4 MCHC 32.6 L RDW 16.1 H Plt Count 22 L* MPV 10.6 Neut % (Auto) 69.7 Lymph % (Auto) 1.8 L [place] % (Auto) 12.5 H Eos % (Auto) 16.0 H Baso % (Auto) 0.0 Neut # (Auto) 18.0 H Lymph # (Auto) 0.5 L [place] # (Auto) 3.2 H Eos # (Auto) 4.1 H Baso # (Auto) 0.0 Neutrophils % (Manual) Band Neutrophils % Lymphocytes % (Manual) Monocytes % (Manual) Nucleated RBC % Toxic Granulation Platelet Estimate Polychromasia Hypochromasia (manual) Poikilocytosis (manual Anisocytosis (manual) [place] Cells Acanthocytes (Spur) PT INR APTT Puncture Site pCO2 pO2 HCO3 ABG pH ABG Total CO2 ABG O2 Saturation ABG Base Excess Arnold Test ABG Potassium A-a O2 Difference Respiratory Index Sodium Chloride Glucose Lactate Liter Flow FiO2 Crit Value Called To Crit Value Called By Crit Value Read Back Blood Gas Notified Time Potassium Carbon Dioxide Anion Gap BUN Creatinine Est GFR ( Amer) Est GFR (Non-Af Amer) POC Glucose (mg/dL) 72 Random Glucose Lactic Acid 6.6 H* Calcium Phosphorus Magnesium Total Bilirubin AST ALT Alkaline Phosphatase Total Protein Albumin Globulin Albumin/Globulin Ratio Arterial Blood Potassium Urine Color Urine Clarity Urine pH Ur Specific [place] Urine Protein Urine Glucose (UA) Urine Ketones Urine Blood Urine Nitrate Urine Bilirubin Urine Urobilinogen Ur Leukocyte Esterase Urine WBC (Auto) Ur Squamous Epith Cells Urine Bacteria Fluid Source Fluid Appearance Fluid WBC Fluid RBC Fluid Tot Cell Count Fluid Neutrophils Fluid Lymphocytes Fld Monocyte/Macrophag Fluid Comment Blood Type Antibody Screen 10/13/18 09:24 WBC RBC Hgb Hct MCV MCH MCHC RDW Plt Count MPV Neut % (Auto) Lymph % (Auto) [place] % (Auto) Eos % (Auto) Baso % (Auto) Neut # (Auto) Lymph # (Auto) [place] # (Auto) Eos # (Auto) Baso # (Auto) Neutrophils % (Manual) Band Neutrophils % Lymphocytes % (Manual) Monocytes % (Manual) Nucleated RBC % Toxic Granulation Platelet Estimate Polychromasia Hypochromasia (manual) Poikilocytosis (manual Anisocytosis (manual) [place] Cells Acanthocytes ([place]) PT 55.7 H D INR 5.1 H* D APTT 69 H D Puncture Site pCO2 pO2 HCO3 ABG pH ABG Total CO2 ABG O2 Saturation ABG Base Excess Arnold Test ABG Potassium A-a O2 Difference Respiratory Index Sodium Chloride Glucose Lactate Liter Flow FiO2 Crit Value Called To Crit Value Called By Crit Value Read Back Blood Gas Notified Time Potassium Carbon Dioxide Anion Gap BUN Creatinine Est GFR ( Amer) Est GFR (Non-Af Amer) POC Glucose (mg/dL) Random Glucose Lactic Acid Calcium Phosphorus Magnesium Total Bilirubin AST ALT Alkaline Phosphatase Total Protein Albumin Globulin Albumin/Globulin Ratio Arterial Blood Potassium Urine Color Urine Clarity Urine pH Ur Specific [place] Urine Protein Urine Glucose (UA) Urine Ketones Urine Blood Urine Nitrate Urine Bilirubin Urine Urobilinogen Ur Leukocyte Esterase Urine WBC (Auto) Ur Squamous Epith Cells Urine Bacteria Fluid Source Fluid Appearance Fluid WBC Fluid RBC Fluid Tot Cell Count Fluid Neutrophils Fluid Lymphocytes Fld Monocyte/Macrophag Fluid Comment Blood Type Antibody Screen Radiology Impressions: Radiology Impressions Abdomen Ultrasound 10/12/18 10:50 IMPRESSION: Moderate to large amount of ascites. Chest X-Ray 10/12/18 17:26 IMPRESSION: No active disease. Chest X-Ray 10/13/18 08:56 IMPRESSION: Right IJ approach central venous catheter extends expected location of the cavoatrial junction. Left upper lobe consolidation/mass re-identified. Patchy infiltrates involving the inferior right upper lobe and right hilar/infrahilar regions. Fingerstick Blood Sugar Results: 139 Review of Systems - Review of Systems Systems not reviewed;Unavailable: Altered Mental Status Assessment/Plan - Assessment and Plan (Free Text) Assessment: Severe cirrhosis/at risk of variceal bleeding: correct coagulopathy given low hb/hct, VIt K + FFP + PRBC infusion, continue PPI and octroetide, rifampin + lactulose to keep 3 bms/day -HYpoxic respiratory failure: continue bi-pap PRN -shock: hypovolemic: place central line and start pressors, replace volume, titrate off pressors -Sepsis: source unknown: possible tertiary peritonitits, Empirically on abx, obtain CT abd/pelvis when stable, pending cultures -JAIRO: 2ns shock, liekly ATN, avoid nephrotoxic drugs, monitor urine output -DVT ppx scds (Gi bleed/thrombocytopenia) -PUD ppx : ppi ggt -prognosis poor as patient has alcoholic liver cirrhosis -cc time 67 minutes - Date & Time Date: 10/13/18 Time: 15:13
--- NOTE | 2018-10-13 13:39 | CP.PCM.CON ---
<Paul Stark - Last Filed: 10/13/18 15:55> History of Present Illness - History of Present Illness History of Present Illness: GI Fellow PGY4, Consult note. Landy Mendoza is a 43M with decompensated alcoholic cirrhosis presenting with AMS, anemia. is at bedside to help with history. Patient was at baseline until a few days ago when he became confused. He has been have stool with blood intermittently. states he has been compliant with medications but has been gaining a lot of fluid on he abdomen. He may have seen a mid teacher around [place], but cannot give details. He last drink of alcohol was 4 months ago. No sick contacts at home. Today, he is in ICU. He had been hypotensive and given several blood and fluid products. He had paracentesis and right IJ line placed. Patient is confused today, looking much worse than when I saw him 1 month ago. EGD 08/30 - portal htn gastropathy, grade I varices EGD 12/28 with esophagitis, portal hypertensive gastropathy, erosive gastritis and duodenitis. 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 Past Patient History - Infectious Disease Hx of Infectious Diseases: None - Past Medical History & Family History Past Medical History?: Yes - Past Social History Smoking Status: Never Smoked - CARDIAC Hx Hypertension: Yes (PORTAL) - PULMONARY Hx Respiratory Disorders: No Hx Pneumonia: Yes - NEUROLOGICAL Hx Seizures: Yes (alcohol related) - HEENT Hx HEENT Problems: No - RENAL Hx Chronic Kidney Disease: No - ENDOCRINE/METABOLIC Hx Endocrine Disorders: No - HEMATOLOGICAL/ONCOLOGICAL Hx Anemia: Yes - INTEGUMENTARY Hx Dermatological Problems: No - MUSCULOSKELETAL/RHEUMATOLOGICAL Hx Fractures: No - GASTROINTESTINAL Hx Gastritis: Yes (+ H. PYLORII) Hx Pancreatitis: Yes - GENITOURINARY/GYNECOLOGICAL Hx Genitourinary Disorders: No - PSYCHIATRIC Hx Substance Use: No - SURGICAL HISTORY Hx Surgeries: Yes Other/Comment: Endoscopy - ANESTHESIA Hx Anesthesia: Yes Hx Anesthesia Reactions: No Meds Allergies/Adverse Reactions: Allergies Allergy/AdvReac Type Severity Reaction Status Date / Time No Known Allergies Allergy Verified 09/22/18 17:33 - Medications Medications: Current Medications Albumin Human (Albumin Human 25% (12.5 Gm/50 Ml)) 12.5 gm IV Q8H [facility] Stop: 10/15/18 19:16 Last Admin: 10/13/18 10:43 Dose: 12.5 gm Folic Acid (Folic Acid) 1 mg PO DAILY [facility] Last Admin: 10/13/18 11:41 Dose: Not Given Ceftriaxone Sodium 1 gm/ (Sodium Chloride) 100 mls @ 100 mls/hr IVPB Q24H [facility]; Protocol Last Admin: 10/13/18 11:48 Dose: 100 mls/hr Pantoprazole Sodium 80 mg/ (Sodium Chloride) 100 mls @ 10 mls/hr IVP .Q10H [facility] Last Admin: 10/13/18 05:55 Dose: 10 mls/hr Dextrose (Dextrose 10% In Water) 1,000 mls @ 40 mls/hr IV .Q24H [facility] Last Admin: 10/13/18 07:46 Dose: 40 mls/hr Octreotide Acetate 1,250 mcg/ (Dextrose) 252.5 mls @ 10.1 mls/hr IV .Q24H [facility] Last Admin: 10/13/18 09:53 Dose: Not Given Norepinephrine Bitartrate 4 mg (/ Sodium Chloride) 250 mls @ 15 mls/hr IV .[id number] PRN; Protocol PRN Reason: TITRATE PER MD ORDER Last Titration: 10/13/18 11:40 Dose: 8 mcg/min, 30 mls/hr Vasopressin 40 units/ Dextrose 40 mls @ 2.4 mls/hr IV .[id number] PRN; Protocol PRN Reason: PER TITRATION PROTOCOL Last Titration: 10/13/18 12:55 Dose: 0.04 units/min, 2.4 mls/hr Sodium Bicarbonate 150 meq/ (Dextrose) 1,150 mls @ 75 mls/hr IV .[id number] [facility] Last Admin: 10/13/18 09:54 Dose: 75 mls/hr Lactulose (Enulose) 20 gm PO Q12H [facility] Last Admin: 10/13/18 06:55 Dose: 20 gm Phytonadione (Vitamin K Inj) 10 mg IV Q24H [facility] Stop: 10/15/18 08:31 Last Admin: 10/13/18 09:07 Dose: 10 mg Potassium Chloride (K-Dur 20 Meq Er Tab) 40 meq PO DAILY [facility] Last Admin: 10/13/18 11:41 Dose: Not Given Rifaximin (Xifaxan) 550 mg PO BID [facility]; Protocol Last Admin: 10/13/18 11:41 Dose: Not Given Physical Exam - Constitutional Appears: Toxic, Agitated, Confused, Cachectic, Chronically Ill - Head Exam Head Exam: ATRAUMATIC, NORMAL INSPECTION - Eye Exam Eye Exam: EOMI, Scleral icterus - ENT Exam ENT Exam: Mucous Membranes Moist, Normal Exam - Respiratory Exam Respiratory Exam: Clear to Auscultation Bilateral, NORMAL BREATHING PATTERN - Cardiovascular Exam Cardiovascular Exam: REGULAR RHYTHM, +S1, +S2 - GI/Abdominal Exam GI & Abdominal Exam: Normal Bowel Sounds, Soft. absent: Organomegaly, Tenderness - Extremities Exam Extremities exam: Positive for: pedal edema. Negative for: tenderness - Neurological Exam Neurological exam: Alert, CN II-XII Intact, Oriented x3 - Psychiatric Exam Psychiatric exam: Agitated, Anxious - Skin Skin Exam: Dry, Warm Results - Vital Signs Recent Vital Signs: Last Vital Signs Temp 97.4 F L 10/13/18 12:58 Pulse 81 10/13/18 11:32 Resp 19 10/13/18 11:32 BP 79/52 L 10/13/18 11:32 Pulse Ox 89 L 10/13/18 11:32 - Labs Result Diagrams: 10/13/18 09:24 10/13/18 06:21 Labs: Laboratory Results - last 24 hr 10/12/18 10/12/18 10/12/18 08:15 12:57 15:08 WBC RBC Hgb Hct MCV MCH MCHC RDW Plt Count MPV Neut % (Auto) Lymph % (Auto) [place] % (Auto) Eos % (Auto) Baso % (Auto) Neut # (Auto) Lymph # (Auto) [place] # (Auto) Eos # (Auto) Baso # (Auto) Neutrophils % (Manual) Band Neutrophils % Lymphocytes % (Manual) Monocytes % (Manual) Nucleated RBC % Toxic Granulation Platelet Estimate Polychromasia Hypochromasia (manual) Poikilocytosis (manual Anisocytosis (manual) [place] Cells Acanthocytes (Spur) PT INR APTT Puncture Site pCO2 pO2 HCO3 ABG pH ABG Total CO2 ABG O2 Saturation ABG Base Excess Arnold Test ABG Potassium A-a O2 Difference Respiratory Index Sodium Chloride Glucose Lactate Liter Flow FiO2 Crit Value Called To Crit Value Called By Crit Value Read Back Blood Gas Notified Time Potassium Carbon Dioxide Anion Gap BUN Creatinine Est GFR ( Amer) Est GFR (Non-Af Amer) POC Glucose (mg/dL) 60 L Random Glucose Lactic Acid 5.8 H* Calcium Phosphorus Magnesium Total Bilirubin AST ALT Alkaline Phosphatase Total Protein Albumin Globulin Albumin/Globulin Ratio Arterial Blood Potassium Urine Color Urine Clarity Urine pH Ur Specific [place] Urine Protein Urine Glucose (UA) Urine Ketones Urine Blood Urine Nitrate Urine Bilirubin Urine Urobilinogen Ur Leukocyte Esterase Urine WBC (Auto) Ur Squamous Epith Cells Urine Bacteria Fluid Source Fluid Appearance Fluid WBC Fluid RBC Fluid Tot Cell Count Fluid Neutrophils Fluid Lymphocytes Fld Monocyte/Macrophag Fluid Comment Blood Type O POSITIVE Antibody Screen Negative 10/12/18 10/12/18 10/12/18 15:39 17:57 18:01 WBC RBC Hgb Hct MCV MCH MCHC RDW Plt Count MPV Neut % (Auto) Lymph % (Auto) [place] % (Auto) Eos % (Auto) Baso % (Auto) Neut # (Auto) Lymph # (Auto) [place] # (Auto) Eos # (Auto) Baso # (Auto) Neutrophils % (Manual) Band Neutrophils % Lymphocytes % (Manual) Monocytes % (Manual) Nucleated RBC % Toxic Granulation Platelet Estimate Polychromasia Hypochromasia (manual) Poikilocytosis (manual Anisocytosis (manual) Cris Cells Acanthocytes (Spur) PT INR APTT Puncture Site pCO2 pO2 HCO3 ABG pH ABG Total CO2 ABG O2 Saturation ABG Base Excess Arnold Test ABG Potassium A-a O2 Difference Respiratory Index Sodium Chloride Glucose Lactate Liter Flow FiO2 Crit Value Called To Crit Value Called By Crit Value Read Back Blood Gas Notified Time Potassium Carbon Dioxide Anion Gap BUN Creatinine Est GFR ( Amer) Est GFR (Non-Af Amer) POC Glucose (mg/dL) 139 H 62 L Random Glucose Lactic Acid Calcium Phosphorus Magnesium Total Bilirubin AST ALT Alkaline Phosphatase Total Protein Albumin Globulin Albumin/Globulin Ratio Arterial Blood Potassium Urine Color Yellow Urine Clarity Clear Urine pH 5.0 Ur Specific [place] 1.008 Urine Protein Negative Urine Glucose (UA) Normal Urine Ketones Negative Urine Blood Negative Urine Nitrate Negative Urine Bilirubin Negative Urine Urobilinogen Normal Ur Leukocyte Esterase Neg Urine WBC (Auto) < 1 Ur Squamous Epith Cells < 1 Urine Bacteria Rare Fluid Source Fluid Appearance Fluid WBC Fluid RBC Fluid Tot Cell Count Fluid Neutrophils Fluid Lymphocytes Fld Monocyte/Macrophag Fluid Comment Blood Type Antibody Screen 10/12/18 10/12/18 10/12/18 18:04 19:00 19:03 WBC RBC Hgb Hct MCV MCH MCHC RDW Plt Count MPV Neut % (Auto) Lymph % (Auto) [place] % (Auto) Eos % (Auto) Baso % (Auto) Neut # (Auto) Lymph # (Auto) [place] # (Auto) Eos # (Auto) Baso # (Auto) Neutrophils % (Manual) Band Neutrophils % Lymphocytes % (Manual) Monocytes % (Manual) Nucleated RBC % Toxic Granulation Platelet Estimate Polychromasia Hypochromasia (manual) Poikilocytosis (manual Anisocytosis (manual) [place] Cells Acanthocytes (Spur) PT INR APTT Puncture Site pCO2 pO2 HCO3 ABG pH ABG Total CO2 ABG O2 Saturation ABG Base Excess Arnold Test ABG Potassium A-a O2 Difference Respiratory Index Sodium Chloride Glucose Lactate Liter Flow FiO2 Crit Value Called To Crit Value Called By Crit Value Read Back Blood Gas Notified Time Potassium Carbon Dioxide Anion Gap BUN Creatinine Est GFR ( Amer) Est GFR (Non-Af Amer) POC Glucose (mg/dL) 65 112 H Random Glucose Lactic Acid Calcium Phosphorus Magnesium Total Bilirubin AST ALT Alkaline Phosphatase Total Protein Albumin Globulin Albumin/Globulin Ratio Arterial Blood Potassium Urine Color Urine Clarity Urine pH Ur Specific [place] Urine Protein Urine Glucose (UA) Urine Ketones Urine Blood Urine Nitrate Urine Bilirubin Urine Urobilinogen Ur Leukocyte Esterase Urine WBC (Auto) Ur Squamous Epith Cells Urine Bacteria Fluid Source Peritoneal/ascites Fluid Appearance Clear Fluid WBC 43.0 Fluid RBC 499.0 H Fluid Tot Cell Count 100 H Fluid Neutrophils 42.0 H Fluid Lymphocytes 55.0 H Fld Monocyte/Macrophag 3 H Fluid Comment Blood Type Antibody Screen 10/13/18 10/13/18 10/13/18 00:03 00:05 00:29 WBC RBC Hgb Hct MCV MCH MCHC RDW Plt Count MPV Neut % (Auto) Lymph % (Auto) [place] % (Auto) Eos % (Auto) Baso % (Auto) Neut # (Auto) Lymph # (Auto) [place] # (Auto) Eos # (Auto) Baso # (Auto) Neutrophils % (Manual) Band Neutrophils % Lymphocytes % (Manual) Monocytes % (Manual) Nucleated RBC % Toxic Granulation Platelet Estimate Polychromasia Hypochromasia (manual) Poikilocytosis (manual Anisocytosis (manual) [place] Cells Acanthocytes (Spur) PT INR APTT Puncture Site pCO2 pO2 HCO3 ABG pH ABG Total CO2 ABG O2 Saturation ABG Base Excess Arnold Test ABG Potassium A-a O2 Difference Respiratory Index Sodium Chloride Glucose Lactate Liter Flow FiO2 Crit Value Called To Crit Value Called By Crit Value Read Back Blood Gas Notified Time Potassium Carbon Dioxide Anion Gap BUN Creatinine Est GFR ( Amer) Est GFR (Non-Af Amer) POC Glucose (mg/dL) 28 L* 26 L* 178 H Random Glucose Lactic Acid Calcium Phosphorus Magnesium Total Bilirubin AST ALT Alkaline Phosphatase Total Protein Albumin Globulin Albumin/Globulin Ratio Arterial Blood Potassium Urine Color Urine Clarity Urine pH Ur Specific [place] Urine Protein Urine Glucose (UA) Urine Ketones Urine Blood Urine Nitrate Urine Bilirubin Urine Urobilinogen Ur Leukocyte Esterase Urine WBC (Auto) Ur Squamous Epith Cells Urine Bacteria Fluid Source Fluid Appearance Fluid WBC Fluid RBC Fluid Tot Cell Count Fluid Neutrophils Fluid Lymphocytes Fld Monocyte/Macrophag Fluid Comment Blood Type Antibody Screen 10/13/18 10/13/18 10/13/18 06:16 06:19 06:21 WBC 27.4 H RBC 2.32 L Hgb 6.6 L Hct 20.3 L MCV 87.7 MCH 28.6 MCHC 32.6 L RDW 16.0 H Plt Count 28 L* D MPV 11.8 H Neut % (Auto) 78.9 H Lymph % (Auto) 1.2 L [place] % (Auto) 3.0 Eos % (Auto) 16.8 H Baso % (Auto) 0.1 Neut # (Auto) 21.6 H Lymph # (Auto) 0.3 L [place] # (Auto) 0.8 Eos # (Auto) 4.6 H Baso # (Auto) 0.0 Neutrophils % (Manual) 64 Band Neutrophils % 27 H* Lymphocytes % (Manual) 1 L Monocytes % (Manual) 8 Nucleated RBC % 1 H Toxic Granulation Present Platelet Estimate Markedly decreased L Polychromasia Slight Hypochromasia (manual) Moderate Poikilocytosis (manual Slight Anisocytosis (manual) Slight [place] Cells Slight Acanthocytes (Spur) Slight PT INR APTT Puncture Site Rb pCO2 17 L* pO2 89 HCO3 14.1 L ABG pH 7.34 L ABG Total CO2 9.7 L ABG O2 Saturation 100.2 H ABG Base Excess -13.9 L Arnold Test Na ABG Potassium 3.4 L A-a O2 Difference 118.0 Respiratory Index 1.3 Sodium 132.0 130 L Chloride 107.0 104 Glucose 65 L Lactate 6.8 H* Liter Flow 3.0 FiO2 32.0 Crit Value Called To Aury rn Crit Value Called By Austyn director health Crit Value Read Back Y Blood Gas Notified Time 633 Potassium 3.4 L Carbon Dioxide 11 L* Anion Gap 19 BUN 27 H Creatinine 2.4 H Est GFR ( Amer) 36 Est GFR (Non-Af Amer) 30 POC Glucose (mg/dL) Random Glucose 61 L Lactic Acid Calcium 7.2 L Phosphorus 5.9 H Magnesium 1.8 Total Bilirubin 5.1 H AST 174 H D ALT 36 Alkaline Phosphatase 57 Total Protein 5.1 L Albumin 2.1 L D Globulin 3.0 Albumin/Globulin Ratio 0.7 L Arterial Blood Potassium 3.4 L Urine Color Urine Clarity Urine pH Ur Specific [place] Urine Protein Urine Glucose (UA) Urine Ketones Urine Blood Urine Nitrate Urine Bilirubin Urine Urobilinogen Ur Leukocyte Esterase Urine WBC (Auto) Ur Squamous Epith Cells Urine Bacteria Fluid Source Fluid Appearance Fluid WBC Fluid RBC Fluid Tot Cell Count Fluid Neutrophils Fluid Lymphocytes Fld Monocyte/Macrophag Fluid Comment Blood Type Antibody Screen 10/13/18 10/13/18 10/13/18 06:52 09:24 09:24 WBC 25.9 H RBC 2.03 L Hgb 5.8 L* Hct 17.7 L MCV 86.9 MCH 28.4 MCHC 32.6 L RDW 16.1 H Plt Count 22 L* MPV 10.6 Neut % (Auto) 69.7 Lymph % (Auto) 1.8 L [place] % (Auto) 12.5 H Eos % (Auto) 16.0 H Baso % (Auto) 0.0 Neut # (Auto) 18.0 H Lymph # (Auto) 0.5 L [place] # (Auto) 3.2 H Eos # (Auto) 4.1 H Baso # (Auto) 0.0 Neutrophils % (Manual) Band Neutrophils % Lymphocytes % (Manual) Monocytes % (Manual) Nucleated RBC % Toxic Granulation Platelet Estimate Polychromasia Hypochromasia (manual) Poikilocytosis (manual Anisocytosis (manual) [place] Cells Acanthocytes (Spur) PT INR APTT Puncture Site pCO2 pO2 HCO3 ABG pH ABG Total CO2 ABG O2 Saturation ABG Base Excess Arnold Test ABG Potassium A-a O2 Difference Respiratory Index Sodium Chloride Glucose Lactate Liter Flow FiO2 Crit Value Called To Crit Value Called By Crit Value Read Back Blood Gas Notified Time Potassium Carbon Dioxide Anion Gap BUN Creatinine Est GFR ( Amer) Est GFR (Non-Af Amer) POC Glucose (mg/dL) 72 Random Glucose Lactic Acid 6.6 H* Calcium Phosphorus Magnesium Total Bilirubin AST ALT Alkaline Phosphatase Total Protein Albumin Globulin Albumin/Globulin Ratio Arterial Blood Potassium Urine Color Urine Clarity Urine pH Ur Specific [place] Urine Protein Urine Glucose (UA) Urine Ketones Urine Blood Urine Nitrate Urine Bilirubin Urine Urobilinogen Ur Leukocyte Esterase Urine WBC (Auto) Ur Squamous Epith Cells Urine Bacteria Fluid Source Fluid Appearance Fluid WBC Fluid RBC Fluid Tot Cell Count Fluid Neutrophils Fluid Lymphocytes Fld Monocyte/Macrophag Fluid Comment Blood Type Antibody Screen 10/13/18 10/13/18 09:24 11:39 WBC RBC Hgb Hct MCV MCH MCHC RDW Plt Count MPV Neut % (Auto) Lymph % (Auto) [place] % (Auto) Eos % (Auto) Baso % (Auto) Neut # (Auto) Lymph # (Auto) [place] # (Auto) Eos # (Auto) Baso # (Auto) Neutrophils % (Manual) Band Neutrophils % Lymphocytes % (Manual) Monocytes % (Manual) Nucleated RBC % Toxic Granulation Platelet Estimate Polychromasia Hypochromasia (manual) Poikilocytosis (manual Anisocytosis (manual) [place] Cells Acanthocytes (Spur) PT 55.7 H D INR 5.1 H* D APTT 69 H D Puncture Site pCO2 pO2 HCO3 ABG pH ABG Total CO2 ABG O2 Saturation ABG Base Excess Arnold Test ABG Potassium A-a O2 Difference Respiratory Index Sodium Chloride Glucose Lactate Liter Flow FiO2 Crit Value Called To Crit Value Called By Crit Value Read Back Blood Gas Notified Time Potassium Carbon Dioxide Anion Gap BUN Creatinine Est GFR ( Amer) Est GFR (Non-Af Amer) POC Glucose (mg/dL) 112 H Random Glucose Lactic Acid Calcium Phosphorus Magnesium Total Bilirubin AST ALT Alkaline Phosphatase Total Protein Albumin Globulin Albumin/Globulin Ratio Arterial Blood Potassium Urine Color Urine Clarity Urine pH Ur Specific [place] Urine Protein Urine Glucose (UA) Urine Ketones Urine Blood Urine Nitrate Urine Bilirubin Urine Urobilinogen Ur Leukocyte Esterase Urine WBC (Auto) Ur Squamous Epith Cells Urine Bacteria Fluid Source Fluid Appearance Fluid WBC Fluid RBC Fluid Tot Cell Count Fluid Neutrophils Fluid Lymphocytes Fld Monocyte/Macrophag Fluid Comment Blood Type Antibody Screen Assessment & Plan - Assessment and Plan (Free Text) Assessment: 43 year old male with PMH of decompensated alcoholic cirrhosis 2/2 HE/ascites, variceal bleed s/p EVL 07/2017 and multiple prior upper GI bleeds 2/2 PUD/ Deborah-torrez tear [id number] presenting with abdominal distension, confusion, likely sepsis. #Decompensated alcoholic cirrhosis #Rectal bleeding #JAIRO, likely HRS #Likely sepsis #Alcohol abuse - reports last drink was 4 months ago Plan: -EGD 09/07/18 with grade 1 varices. -Paracentesis 10/12/18, 3L clear fluid. Does not meet SBP by neutrophil count. -MELD 39, previously 25 -Recommend PPI IV daily, d/c drip. -Recommend holding lasix, spironolactone, coreg while hypotensive. -continue Lactulose, titrate to 2-3 BMs daily -continue Rifaximin -Continue rocephin -Volume replacement, Octreotide, midodrine, albumin 25% for treatment of HRS -H/H transfusion goal 7, avoid over resuscitation in cirrhotic which can increase portal HTN significantly. -He has refractory decompensation despite medications. Recommend liver transplant evaluation when improving. He has been sober 4 months and may meet requirements for a trial at [facility]. - Date & Time Date: 10/13/18 Time: 15:22 <Matthew Che - Last Filed: 10/13/18 21:42> Meds - Medications Medications: Current Medications Albumin Human (Albumin Human 25% (12.5 Gm/50 Ml)) 12.5 gm IV Q8H [facility] Stop: 10/15/18 19:16 Last Admin: 10/13/18 10:43 Dose: 12.5 gm Folic Acid (Folic Acid) 1 mg PO DAILY [facility] Last Admin: 10/13/18 11:41 Dose: Not Given Pantoprazole Sodium 80 mg/ (Sodium Chloride) 100 mls @ 10 mls/hr IVP .Q10H [facility] Last Admin: 10/13/18 14:06 Dose: Not Given Dextrose (Dextrose 10% In Water) 1,000 mls @ 40 mls/hr IV .Q24H [facility] Last Admin: 10/13/18 07:46 Dose: 40 mls/hr Octreotide Acetate 1,250 mcg/ (Dextrose) 252.5 mls @ 10.1 mls/hr IV .Q24H [facility] Last Admin: 10/13/18 09:53 Dose: Not Given Norepinephrine Bitartrate 4 mg (/ Sodium Chloride) 250 mls @ 15 mls/hr IV .[id number] PRN; Protocol PRN Reason: TITRATE PER MD ORDER Last Titration: 10/13/18 17:38 Dose: 10 mcg/min, 37.5 mls/hr Vasopressin 40 units/ Dextrose 40 mls @ 2.4 mls/hr IV .[id number] PRN; Protocol PRN Reason: PER TITRATION PROTOCOL Last Admin: 10/13/18 17:39 Dose: 0.04 units/min, 2.4 mls/hr Sodium Bicarbonate 150 meq/ (Dextrose) 1,000 mls @ 150 mls/hr IV .[id number] [facility] Epinephrine HCl 1 mg/ Dextrose 251 mls @ 15.06 mls/hr IV .[id number] [facility]; Protocol Stop: 10/14/18 12:00 Piperacillin Sod/Tazobactam (Sod 3.375 gm/ Sodium Chloride) 100 mls @ 200 mls/hr IVPB Q6H [facility]; Protocol Lactulose (Enulose) 20 gm PO Q12H [facility] Last Admin: 10/13/18 18:42 Dose: Not Given Phytonadione (Vitamin K Inj) 10 mg IV Q24H [facility] Stop: 10/15/18 08:31 Last Admin: 10/13/18 09:07 Dose: 10 mg Potassium Chloride (K-Dur 20 Meq Er Tab) 40 meq PO DAILY [facility] Last Admin: 10/13/18 11:41 Dose: Not Given Rifaximin (Xifaxan) 550 mg PO BID [facility]; Protocol Last Admin: 10/13/18 18:42 Dose: Not Given Results - Vital Signs Recent Vital Signs: Last Vital Signs Temp 95 F L 10/13/18 18:00 Pulse 113 H 10/13/18 20:26 Resp 23 10/13/18 20:35 BP 131/101 H 10/13/18 20:26 Pulse Ox 100 10/13/18 14:00 - Labs Result Diagrams: 10/13/18 18:25 10/13/18 18:25 Labs: Laboratory Results - last 24 hr 10/12/18 10/12/18 10/13/18 08:15 19:00 00:03 WBC RBC Hgb Hct MCV MCH MCHC RDW Plt Count MPV Neut % (Auto) Lymph % (Auto) [place] % (Auto) Eos % (Auto) Baso % (Auto) Neut # (Auto) Lymph # (Auto) [place] # (Auto) Eos # (Auto) Baso # (Auto) Neutrophils % (Manual) Band Neutrophils % Lymphocytes % (Manual) Monocytes % (Manual) Nucleated RBC % Toxic Granulation Platelet Estimate Polychromasia Hypochromasia (manual) Poikilocytosis (manual Anisocytosis (manual) Microcytosis (manual) Macrocytosis (manual) Ovalocytes [place] Cells Acanthocytes (Spur) Schistocytes PT INR APTT Puncture Site pCO2 pO2 HCO3 ABG pH ABG Total CO2 ABG O2 Saturation ABG Base Excess Arnold Test ABG Potassium A-a O2 Difference Respiratory Index Sodium Chloride Glucose Lactate Liter Flow FiO2 Crit Value Called To Crit Value Called By Crit Value Read Back Blood Gas Notified Time Potassium Carbon Dioxide Anion Gap BUN Creatinine Est GFR ( Amer) Est GFR (Non-Af Amer) POC Glucose (mg/dL) 28 L* Random Glucose Lactic Acid Calcium Phosphorus Magnesium Total Bilirubin AST ALT Alkaline Phosphatase Total Creatine Kinase Total Protein Albumin Globulin Albumin/Globulin Ratio Arterial Blood Potassium Fluid Source Peritoneal/ascites Fluid Appearance Clear Fluid WBC 43.0 Fluid RBC 499.0 H Fluid Tot Cell Count 100 H Fluid Neutrophils 42.0 H Fluid Lymphocytes 55.0 H Fld Monocyte/Macrophag 3 H Fluid Comment Blood Type O POSITIVE Antibody Screen Negative 10/13/18 10/13/18 10/13/18 00:05 00:29 06:16 WBC RBC Hgb Hct MCV MCH MCHC RDW Plt Count MPV Neut % (Auto) Lymph % (Auto) [place] % (Auto) Eos % (Auto) Baso % (Auto) Neut # (Auto) Lymph # (Auto) [place] # (Auto) Eos # (Auto) Baso # (Auto) Neutrophils % (Manual) Band Neutrophils % Lymphocytes % (Manual) Monocytes % (Manual) Nucleated RBC % Toxic Granulation Platelet Estimate Polychromasia Hypochromasia (manual) Poikilocytosis (manual Anisocytosis (manual) Microcytosis (manual) Macrocytosis (manual) Ovalocytes Cris Cells Acanthocytes (Spur) Schistocytes PT INR APTT Puncture Site Rb pCO2 17 L* pO2 89 HCO3 14.1 L ABG pH 7.34 L ABG Total CO2 9.7 L ABG O2 Saturation 100.2 H ABG Base Excess -13.9 L Arnold Test Na ABG Potassium 3.4 L A-a O2 Difference 118.0 Respiratory Index 1.3 Sodium 132.0 Chloride 107.0 Glucose 65 L Lactate 6.8 H* Liter Flow 3.0 FiO2 32.0 Crit Value Called To Aury rn Crit Value Called By Austyn director health Crit Value Read Back Y Blood Gas Notified Time 633 Potassium Carbon Dioxide Anion Gap BUN Creatinine Est GFR ( Amer) Est GFR (Non-Af Amer) POC Glucose (mg/dL) 26 L* 178 H Random Glucose Lactic Acid Calcium Phosphorus Magnesium Total Bilirubin AST ALT Alkaline Phosphatase Total Creatine Kinase Total Protein Albumin Globulin Albumin/Globulin Ratio Arterial Blood Potassium 3.4 L Fluid Source Fluid Appearance Fluid WBC Fluid RBC Fluid Tot Cell Count Fluid Neutrophils Fluid Lymphocytes Fld Monocyte/Macrophag Fluid Comment Blood Type Antibody Screen 10/13/18 10/13/18 10/13/18 06:19 06:21 06:52 WBC 27.4 H RBC 2.32 L Hgb 6.6 L Hct 20.3 L MCV 87.7 MCH 28.6 MCHC 32.6 L RDW 16.0 H Plt Count 28 L* D MPV 11.8 H Neut % (Auto) 78.9 H Lymph % (Auto) 1.2 L [place] % (Auto) 3.0 Eos % (Auto) 16.8 H Baso % (Auto) 0.1 Neut # (Auto) 21.6 H Lymph # (Auto) 0.3 L [place] # (Auto) 0.8 Eos # (Auto) 4.6 H Baso # (Auto) 0.0 Neutrophils % (Manual) 64 Band Neutrophils % 27 H* Lymphocytes % (Manual) 1 L Monocytes % (Manual) 8 Nucleated RBC % 1 H Toxic Granulation Present Platelet Estimate Markedly decreased L Polychromasia Slight Hypochromasia (manual) Moderate Poikilocytosis (manual Slight Anisocytosis (manual) Slight Microcytosis (manual) Macrocytosis (manual) Ovalocytes [place] Cells Slight Acanthocytes (Spur) Slight Schistocytes PT INR APTT Puncture Site pCO2 pO2 HCO3 ABG pH ABG Total CO2 ABG O2 Saturation ABG Base Excess Arnold Test ABG Potassium A-a O2 Difference Respiratory Index Sodium 130 L Chloride 104 Glucose Lactate Liter Flow FiO2 Crit Value Called To Crit Value Called By Crit Value Read Back Blood Gas Notified Time Potassium 3.4 L Carbon Dioxide 11 L* Anion Gap 19 BUN 27 H Creatinine 2.4 H Est GFR ( Amer) 36 Est GFR (Non-Af Amer) 30 POC Glucose (mg/dL) 72 Random Glucose 61 L Lactic Acid Calcium 7.2 L Phosphorus 5.9 H Magnesium 1.8 Total Bilirubin 5.1 H AST 174 H D ALT 36 Alkaline Phosphatase 57 Total Creatine Kinase Total Protein 5.1 L Albumin 2.1 L D Globulin 3.0 Albumin/Globulin Ratio 0.7 L Arterial Blood Potassium Fluid Source Fluid Appearance Fluid WBC Fluid RBC Fluid Tot Cell Count Fluid Neutrophils Fluid Lymphocytes Fld Monocyte/Macrophag Fluid Comment Blood Type Antibody Screen 10/13/18 10/13/18 10/13/18 09:24 09:24 09:24 WBC 25.9 H RBC 2.03 L Hgb 5.8 L* Hct 17.7 L MCV 86.9 MCH 28.4 MCHC 32.6 L RDW 16.1 H Plt Count 22 L* MPV 10.6 Neut % (Auto) 69.7 Lymph % (Auto) 1.8 L [place] % (Auto) 12.5 H Eos % (Auto) 16.0 H Baso % (Auto) 0.0 Neut # (Auto) 18.0 H Lymph # (Auto) 0.5 L [place] # (Auto) 3.2 H Eos # (Auto) 4.1 H Baso # (Auto) 0.0 Neutrophils % (Manual) Band Neutrophils % Lymphocytes % (Manual) Monocytes % (Manual) Nucleated RBC % Toxic Granulation Platelet Estimate Polychromasia Hypochromasia (manual) Poikilocytosis (manual Anisocytosis (manual) Microcytosis (manual) Macrocytosis (manual) Ovalocytes [place] Cells Acanthocytes (Spur) Schistocytes PT 55.7 H D INR 5.1 H* D APTT 69 H D Puncture Site pCO2 pO2 HCO3 ABG pH ABG Total CO2 ABG O2 Saturation ABG Base Excess Arnold Test ABG Potassium A-a O2 Difference Respiratory Index Sodium Chloride Glucose Lactate Liter Flow FiO2 Crit Value Called To Crit Value Called By Crit Value Read Back Blood Gas Notified Time Potassium Carbon Dioxide Anion Gap BUN Creatinine Est GFR ( Amer) Est GFR (Non-Af Amer) POC Glucose (mg/dL) Random Glucose Lactic Acid 6.6 H* Calcium Phosphorus Magnesium Total Bilirubin AST ALT Alkaline Phosphatase Total Creatine Kinase Total Protein Albumin Globulin Albumin/Globulin Ratio Arterial Blood Potassium Fluid Source Fluid Appearance Fluid WBC Fluid RBC Fluid Tot Cell Count Fluid Neutrophils Fluid Lymphocytes Fld Monocyte/Macrophag Fluid Comment Blood Type Antibody Screen 10/13/18 10/13/18 10/13/18 11:39 17:54 18:25 WBC RBC Hgb Hct MCV MCH MCHC RDW Plt Count MPV Neut % (Auto) Lymph % (Auto) [place] % (Auto) Eos % (Auto) Baso % (Auto) Neut # (Auto) Lymph # (Auto) [place] # (Auto) Eos # (Auto) Baso # (Auto) Neutrophils % (Manual) Band Neutrophils % Lymphocytes % (Manual) Monocytes % (Manual) Nucleated RBC % Toxic Granulation Platelet Estimate Polychromasia Hypochromasia (manual) Poikilocytosis (manual Anisocytosis (manual) Microcytosis (manual) Macrocytosis (manual) Ovalocytes [place] Cells Acanthocytes (Spur) Schistocytes PT INR APTT Puncture Site pCO2 pO2 HCO3 ABG pH ABG Total CO2 ABG O2 Saturation ABG Base Excess Arnold Test ABG Potassium A-a O2 Difference Respiratory Index Sodium Chloride Glucose Lactate Liter Flow FiO2 Crit Value Called To Crit Value Called By Crit Value Read Back Blood Gas Notified Time Potassium Carbon Dioxide Anion Gap BUN Creatinine Est GFR ( Amer) Est GFR (Non-Af Amer) POC Glucose (mg/dL) 112 H 127 H Random Glucose Lactic Acid 7.0 H* Calcium Phosphorus Magnesium Total Bilirubin AST ALT Alkaline Phosphatase Total Creatine Kinase Total Protein Albumin Globulin Albumin/Globulin Ratio Arterial Blood Potassium Fluid Source Fluid Appearance Fluid WBC Fluid RBC Fluid Tot Cell Count Fluid Neutrophils Fluid Lymphocytes Fld Monocyte/Macrophag Fluid Comment Blood Type Antibody Screen 10/13/18 10/13/18 10/13/18 18:25 18:25 18:25 WBC 27.4 H RBC 2.49 L Hgb 7.4 L Hct 22.6 L MCV 90.5 D MCH 29.9 MCHC 33.0 RDW 17.5 H Plt Count 84 L D MPV 8.6 Neut % (Auto) 81.7 H Lymph % (Auto) 1.0 L [place] % (Auto) 5.5 Eos % (Auto) 11.5 H Baso % (Auto) 0.3 Neut # (Auto) 22.4 H Lymph # (Auto) 0.3 L [place] # (Auto) 1.5 H Eos # (Auto) 3.2 H Baso # (Auto) 0.1 Neutrophils % (Manual) 37 L Band Neutrophils % 41 H* Lymphocytes % (Manual) 3 L Monocytes % (Manual) 19 H Nucleated RBC % 2 H Toxic Granulation Platelet Estimate Decreased L Polychromasia Slight Hypochromasia (manual) Slight Poikilocytosis (manual Anisocytosis (manual) Slight Microcytosis (manual) Slight Macrocytosis (manual) Slight Ovalocytes Slight [place] Cells Slight Acanthocytes (Spur) Schistocytes Slight PT 27.3 H D INR 2.5 D APTT Puncture Site pCO2 pO2 HCO3 ABG pH ABG Total CO2 ABG O2 Saturation ABG Base Excess Arnold Test ABG Potassium A-a O2 Difference Respiratory Index Sodium 134 Chloride 104 Glucose Lactate Liter Flow FiO2 Crit Value Called To Crit Value Called By Crit Value Read Back Blood Gas Notified Time Potassium 4.2 Carbon Dioxide 11 L* Anion Gap 23 H BUN 29 H Creatinine 2.8 H Est GFR ( Amer) 30 Est GFR (Non-Af Amer) 25 POC Glucose (mg/dL) Random Glucose 166 H D Lactic Acid Calcium 6.8 L Phosphorus Magnesium Total Bilirubin AST ALT Alkaline Phosphatase Total Creatine Kinase Total Protein Albumin Globulin Albumin/Globulin Ratio Arterial Blood Potassium Fluid Source Fluid Appearance Fluid WBC Fluid RBC Fluid Tot Cell Count Fluid Neutrophils Fluid Lymphocytes Fld Monocyte/Macrophag Fluid Comment Blood Type Antibody Screen 10/13/18 10/13/18 19:14 21:15 WBC RBC Hgb Hct MCV MCH MCHC RDW Plt Count MPV Neut % (Auto) Lymph % (Auto) [place] % (Auto) Eos % (Auto) Baso % (Auto) Neut # (Auto) Lymph # (Auto) [place] # (Auto) Eos # (Auto) Baso # (Auto) Neutrophils % (Manual) Band Neutrophils % Lymphocytes % (Manual) Monocytes % (Manual) Nucleated RBC % Toxic Granulation Platelet Estimate Polychromasia Hypochromasia (manual) Poikilocytosis (manual Anisocytosis (manual) Microcytosis (manual) Macrocytosis (manual) Ovalocytes [place] Cells Acanthocytes (Spur) Schistocytes PT INR APTT Puncture Site pCO2 pO2 HCO3 ABG pH ABG Total CO2 ABG O2 Saturation ABG Base Excess Arnold Test ABG Potassium A-a O2 Difference Respiratory Index Sodium Chloride Glucose Lactate Liter Flow FiO2 Crit Value Called To Crit Value Called By Crit Value Read Back Blood Gas Notified Time Potassium Carbon Dioxide Anion Gap BUN Creatinine Est GFR ( Amer) Est GFR (Non-Af Amer) POC Glucose (mg/dL) 129 H Random Glucose Lactic Acid Calcium Phosphorus Magnesium Total Bilirubin AST ALT Alkaline Phosphatase Total Creatine Kinase 9576 H Total Protein Albumin Globulin Albumin/Globulin Ratio Arterial Blood Potassium Fluid Source Fluid Appearance Fluid WBC Fluid RBC Fluid Tot Cell Count Fluid Neutrophils Fluid Lymphocytes Fld Monocyte/Macrophag Fluid Comment Blood Type Antibody Screen Attending/Attestation - Attestation I have personally seen and examined this patient.: Yes I have fully participated in the care of the patient.: Yes I have reviewed all pertinent clinical information: Yes Notes (Text): 10/13/18 21:42 Chart reviewed. Findings, assessment and management, as reflected above, were discussed with Dr. Stark.
--- NOTE | 2018-10-13 16:06 | CP.PCM.PN ---
Subjective - Date & Time of Evaluation Date of Evaluation: 10/13/18 Time of Evaluation: 11:45 - Subjective Subjective: clinically same Objective - Vital Signs/Intake and Output Vital Signs (last 24 hours): Temp Pulse Resp BP Pulse Ox 97.3 F L 82 14 102/74 100 10/13/18 14:05 10/13/18 14:20 10/13/18 14:20 10/13/18 14:20 10/13/18 14:00 Intake and Output: 10/13/18 10/13/18 06:59 18:59 Intake Total 265 1980.8 Output Total 3000 170 Balance -2735 1810.8 - Medications Medications: Current Medications Albumin Human (Albumin Human 25% (12.5 Gm/50 Ml)) 12.5 gm IV Q8H [facility] Stop: 10/15/18 19:16 Last Admin: 10/13/18 10:43 Dose: 12.5 gm Folic Acid (Folic Acid) 1 mg PO DAILY [facility] Last Admin: 10/13/18 11:41 Dose: Not Given Ceftriaxone Sodium 1 gm/ (Sodium Chloride) 100 mls @ 100 mls/hr IVPB Q24H [facility]; Protocol Last Admin: 10/13/18 11:48 Dose: 100 mls/hr Pantoprazole Sodium 80 mg/ (Sodium Chloride) 100 mls @ 10 mls/hr IVP .Q10H [facility] Last Admin: 10/13/18 14:06 Dose: Not Given Dextrose (Dextrose 10% In Water) 1,000 mls @ 40 mls/hr IV .Q24H [facility] Last Admin: 10/13/18 07:46 Dose: 40 mls/hr Octreotide Acetate 1,250 mcg/ (Dextrose) 252.5 mls @ 10.1 mls/hr IV .Q24H [facility] Last Admin: 10/13/18 09:53 Dose: Not Given Norepinephrine Bitartrate 4 mg (/ Sodium Chloride) 250 mls @ 15 mls/hr IV .[id number] PRN; Protocol PRN Reason: TITRATE PER MD ORDER Last Titration: 10/13/18 15:08 Dose: 5 mcg/min, 18.75 mls/hr Vasopressin 40 units/ Dextrose 40 mls @ 2.4 mls/hr IV .[id number] PRN; Protocol PRN Reason: PER TITRATION PROTOCOL Last Titration: 10/13/18 12:55 Dose: 0.04 units/min, 2.4 mls/hr Sodium Bicarbonate 150 meq/ (Dextrose) 1,150 mls @ 75 mls/hr IV .[id number] [facility] Last Admin: 10/13/18 09:54 Dose: 75 mls/hr Lactulose (Enulose) 20 gm PO Q12H [facility] Last Admin: 10/13/18 06:55 Dose: 20 gm Phytonadione (Vitamin K Inj) 10 mg IV Q24H [facility] Stop: 10/15/18 08:31 Last Admin: 10/13/18 09:07 Dose: 10 mg Potassium Chloride (K-Dur 20 Meq Er Tab) 40 meq PO DAILY [facility] Last Admin: 10/13/18 11:41 Dose: Not Given Rifaximin (Xifaxan) 550 mg PO BID [facility]; Protocol Last Admin: 10/13/18 11:41 Dose: Not Given - Labs Labs: 10/13/18 09:24 10/13/18 06:21 PT 55.7 SECONDS (9.7-12.2) H D 10/13/18 09:24 INR 5.1 H* D 10/13/18 09:24 APTT 69 SECONDS (21-34) H D 10/13/18 09:24
[2018-10-13] MEDS ORDERED: Sodium Chloride 0.9% 1,000 ML IV ONE (18:15)
[2018-10-13 18:37] LABS: BASO # 0.1 K/uL (0.0-0.2); BASO % 0.3 % (0.0-2.0); EOS # 3.2 K/uL (0.0-0.7); EOS % 11.5 % (0.0-4.0); HEMOGLOBIN 7.4 g/dL (12.0-18.0); LYMPH # 0.3 K/uL (1.0-4.3); MEAN CORPUSCULAR HEMOGLOBIN 29.9 pg (27.0-31.0); MEAN PLATELET VOLUME 8.6 fL (7.2-11.7); MONO # 1.5 K/uL (0.0-0.8); MONO % 5.5 % (0.0-10.0); NEUT # 22.4 K/uL (1.8-7.0); NEUT % 81.7 % (50.0-75.0); NRBC % 1.8 % (0.0-2.0); RBC 2.49 Mil/uL (4.40-5.90); RED CELL DISTRIBUTION WIDTH 17.5 % (11.5-14.5); WHITE BLOOD COUNT 27.4 K/uL (4.8-10.8)
[2018-10-13 18:40] LABS: INR 2.5; MEAN CELL VOLUME 90.5 fL (80.0-94.0); PLATELET COUNT 84 K/uL (130-400); PROTHROMBIN TIME 27.3 SECONDS (9.7-12.2)
[2018-10-13 18:50] LABS: CALCIUM 6.8 mg/dl (8.6-10.4)
[2018-10-13] MEDS ORDERED: Sodium Bicarbonate (8.4%) 50 Meq Syringe IVP ONE ×3 (19:00→19:15)
[2018-10-13 19:14] LABS: BANDS 41 % (0-2); LYMPHOCYTE 3 % (20-40); MONOCYTE 19 % (0-10); NEUTROPHIL 37 % (50-75); NUCLEATED RED BLOOD CELL 2 % (0-0); TOTAL CELLS COUNTED 100
[2018-10-13 19:15] LABS: ANISOCYTOSIS SLIGHT; BURR CELLS SLIGHT; HYPOCHROMIC SLIGHT; PLATELET ESTIMATE DECREASED (NORMAL); POLYCHROMIC SLIGHT; SCHISTOCYTES SLIGHT
[2018-10-13 19:16] LABS: MICROCYTOSIS SLIGHT; OVALOCYTES SLIGHT
[2018-10-13 20:27] VITALS: RESP 23
[2018-10-13] MEDS: DEXTROSE 5% IV ONE ×2 (21:02→23:55)
[2018-10-13] MEDS: EPINEPHRINE IV ONE ×2 (21:02→23:55)
[2018-10-13] MEDS: WATER IV ONE ×2 (21:02→23:55)
[2018-10-13] MEDS: Piperacillin/Tazobact 3.375 GM in Sodium Chloride 100 ML IVPB SCH (21:32)
[2018-10-13 22:34] LABS: CK-MB 34.4 ng/mL (0.0-3.38); TROPONIN I 0.633 ng/mL (0.00-0.120)
[2018-10-14] MEDS: WATER IV ONE ×4 (02:09→09:19)
[2018-10-14] MEDS: DEXTROSE 5% IV ONE ×4 (02:09→09:19)
[2018-10-14] MEDS: EPINEPHRINE IV ONE ×4 (02:09→09:19)
[2018-10-14 02:10] LABS: ARTERIAL BLOOD GAS HCO3 3.1 mmol/L (21-28); ARTERIAL BLOOD GAS O2 SAT 74.4 % (95-98); ARTERIAL BLOOD GAS PCO2 43 mm/Hg (35-45); ARTERIAL BLOOD GAS PH 6.85 (7.35-7.45); ARTERIAL BLOOD GAS PO2 46 mm/Hg (80-100); ARTERIAL BLOOD GAS TCO2 8.8 mmol/L (22-28)
[2018-10-14] MEDS ORDERED: Sodium Bicarbonate (8.4%) 50 Meq Syringe IVP ONE ×2 (02:12→05:42)
[2018-10-14] MEDS: Albumin Human 25% (12.5 gm/50 ml) IV SCH (03:17)
--- NOTE | 2018-10-14 03:31 | CP.PCM.PN ---
Subjective - Date & Time of Evaluation Date of Evaluation: 10/14/18 Time of Evaluation: 03:22 - Subjective Subjective: Patient intubated just prior to shift start, on maximal vent support, peep of 7, peak pressure of 40, fio2 100%, patient is cynosed, hypotension on pressors, volume overload noticed on the exam, attempted to diuresis in presence of pres sors, but no diureis. Attempted A line in the left wrist unable due to severe vasoconstriction, in the left groin hematoma notice with the attempt hence aborted post hemostasis. ABG obtained from right groin showed, severe hypoxia, severe lactic acidosis with ph of 6.9, 4 amps of bicarb given. Explained to the family that patient in acute cardirespiratory failure along with acute lung and hepatic failure. The ph will not improve unless hypoxia improves but he is on maximum support with vent, and diuresis not working, with severe hypotension, coagulopathy also not the candidate for hd. Explained cardiac arrest is imminent, cpr will be futile, family understood the serious situation but unable to make the decision regarding code status and request more time. Current maximum support continued. Objective - Vital Signs/Intake and Output Vital Signs (last 24 hours): Temp Pulse Resp BP Pulse Ox 95 F L 113 H 23 132/92 H 100 10/13/18 18:00 10/13/18 20:26 10/13/18 20:35 10/13/18 21:58 10/13/18 14:00 Intake and Output: 10/13/18 10/14/18 18:59 06:59 Intake Total 3598.4 404 Output Total 170 Balance 3428.4 404 - Medications Medications: Current Medications Albumin Human (Albumin Human 25% (12.5 Gm/50 Ml)) 12.5 gm IV Q8H [facility] Stop: 10/15/18 19:16 Last Admin: 10/14/18 03:17 Dose: 12.5 gm Folic Acid (Folic Acid) 1 mg PO DAILY [facility] Last Admin: 10/13/18 11:41 Dose: Not Given Pantoprazole Sodium 80 mg/ (Sodium Chloride) 100 mls @ 10 mls/hr IVP .Q10H [facility] Last Admin: 10/13/18 20:52 Dose: 10 mls/hr Dextrose (Dextrose 10% In Water) 1,000 mls @ 40 mls/hr IV .Q24H [facility] Last Admin: 10/13/18 07:46 Dose: 40 mls/hr Octreotide Acetate 1,250 mcg/ (Dextrose) 252.5 mls @ 10.1 mls/hr IV .Q24H [facility] Last Admin: 10/13/18 09:53 Dose: Not Given Norepinephrine Bitartrate 4 mg (/ Sodium Chloride) 250 mls @ 15 mls/hr IV .[id number] PRN; Protocol PRN Reason: TITRATE PER MD ORDER Last Titration: 10/13/18 22:53 Dose: 15 mcg/min, 56.25 mls/hr Vasopressin 40 units/ Dextrose 40 mls @ 2.4 mls/hr IV .[id number] PRN; Protocol PRN Reason: PER TITRATION PROTOCOL Last Admin: 10/13/18 17:39 Dose: 0.04 units/min, 2.4 mls/hr Sodium Bicarbonate 150 meq/ (Dextrose) 1,000 mls @ 150 mls/hr IV .[id number] [facility] Epinephrine HCl 1 mg/ Dextrose 251 mls @ 15.06 mls/hr IV .[id number] [facility]; Protocol Stop: 10/14/18 12:00 Piperacillin Sod/Tazobactam (Sod 3.375 gm/ Sodium Chloride) 100 mls @ 200 mls/hr IVPB Q6H [facility]; Protocol Lactulose (Enulose) 20 gm PO Q12H [facility] Last Admin: 10/13/18 18:42 Dose: Not Given Phytonadione (Vitamin K Inj) 10 mg IV Q24H [facility] Stop: 10/15/18 08:31 Last Admin: 10/13/18 09:07 Dose: 10 mg Potassium Chloride (K-Dur 20 Meq Er Tab) 40 meq PO DAILY [facility] Last Admin: 10/13/18 11:41 Dose: Not Given Rifaximin (Xifaxan) 550 mg PO BID [facility]; Protocol Last Admin: 10/13/18 18:42 Dose: Not Given - Labs Labs: 10/13/18 18:25 10/13/18 18:25 PT 27.3 SECONDS (9.7-12.2) H D 10/13/18 18:25 INR 2.5 D 10/13/18 18:25 APTT 69 SECONDS (21-34) H D 10/13/18 09:24
[2018-10-14] MEDS: Piperacillin/Tazobact 3.375 GM in Sodium Chloride 100 ML IVPB SCH ×2 (03:33→07:44)
[2018-10-14 05:32] LABS: ARTERIAL BLOOD GAS HCO3 4.9 mmol/L (21-28); ARTERIAL BLOOD GAS O2 SAT 21.5 % (95-98); ARTERIAL BLOOD GAS PCO2 75 mm/Hg (35-45); ARTERIAL BLOOD GAS PH 6.83 (7.35-7.45); ARTERIAL BLOOD GAS PO2 18 mm/Hg (80-100); ARTERIAL BLOOD GAS TCO2 14.8 mmol/L (22-28)
[2018-10-14 06:02] LABS: BASO # 0.1 K/uL (0.0-0.2); BASO % 0.4 % (0.0-2.0); EOS # 1.8 K/uL (0.0-0.7); EOS % 9.9 % (0.0-4.0); HEMOGLOBIN 7.8 g/dL (12.0-18.0); LYMPH # 1.1 K/uL (1.0-4.3); LYMPH % 5.8 % (20.0-40.0); MEAN CELL VOLUME 94.6 fL (80.0-94.0); MEAN CORPUSCULAR HEMOGLOBIN 29.5 pg (27.0-31.0); MEAN CORPUSCULAR HGB CONC 31.2 g/dL (33.0-37.0); MEAN PLATELET VOLUME 8.7 fL (7.2-11.7); MONO # 1.1 K/uL (0.0-0.8); MONO % 5.7 % (0.0-10.0); NEUT # 14.6 K/uL (1.8-7.0); NEUT % 78.2 % (50.0-75.0); NRBC % 6.7 % (0.0-2.0); PLATELET COUNT 61 K/uL (130-400); RBC 2.65 Mil/uL (4.40-5.90); WHITE BLOOD COUNT 18.7 K/uL (4.8-10.8)
[2018-10-14 06:24] LABS: INR 3.5
[2018-10-14] MEDS: Sodium Bicarbonate 8.4% 150 MEQ in Dextrose 5% In Water 850 ML IV SCH ×2 (06:43→08:15)
[2018-10-14 06:52] LABS: ALB/GLOB RATIO 1.1 (1.0-2.1); ALBUMIN 2.4 g/dL (3.5-5.0); CALCIUM 6.9 mg/dl (8.6-10.4)
[2018-10-14] MEDS: Phytonadione 10 mg/ml Inj (Adult) IV SCH (07:44)
[2018-10-14 08:02] LABS: BANDS 40 % (0-2); LYMPHOCYTE 4 % (20-40); METAMYELOCYTE 2 % (0-0); MONOCYTE 6 % (0-10); NEUTROPHIL 48 % (50-75); NUCLEATED RED BLOOD CELL 9 % (0-0); TOTAL CELLS COUNTED 100
[2018-10-14 08:03] LABS: ANISOCYTOSIS SLIGHT; PLATELET ESTIMATE DECREASED (NORMAL)
[2018-10-14 08:05] LABS: BURR CELLS MODERATE; HYPOCHROMIC SLIGHT; POIKILOCYTOSIS SLIGHT
[2018-10-14 08:09] LABS: OVALOCYTES SLIGHT; TOXIC GRANULATION PRESENT
[2018-10-14 08:13] LABS: LARGE PLATELETS PRESENT
[2018-10-14] MEDS: Pantoprazole 80 MG in Sodium Chloride 0.9% 100 ML IVP SCH (08:30)
--- NOTE | 2018-10-14 08:44 | CP.PCM.PN ---
<Paul Stark - Last Filed: 10/14/18 08:41> Subjective - Date & Time of Evaluation Date of Evaluation: 10/14/18 Time of Evaluation: 08:41 - Subjective Subjective: GI Fellow PGY4, Progress note. Patient is very sick with and aunt at bedside. He has been intubated last night. He is in multiorgan failure with pH of 6.83. Vent and IV pressors are at maximal requirements. Minimal urine output, likely ATN. Unable to obtain ROS due to intubation. Objective - Vital Signs/Intake and Output Vital Signs (last 24 hours): Temp Pulse Resp BP Pulse Ox 95 F L 113 H 23 98/64 L 100 10/13/18 18:00 10/13/18 20:26 10/13/18 20:35 10/14/18 07:26 10/13/18 14:00 Intake and Output: 10/14/18 10/14/18 06:59 18:59 Intake Total 2559.1 250 Balance 2559.1 250 - Medications Medications: Current Medications Albumin Human (Albumin Human 25% (12.5 Gm/50 Ml)) 12.5 gm IV Q8H [facility] Stop: 10/15/18 19:16 Last Admin: 10/14/18 03:17 Dose: 12.5 gm Folic Acid (Folic Acid) 1 mg PO DAILY [facility] Last Admin: 10/13/18 11:41 Dose: Not Given Pantoprazole Sodium 80 mg/ (Sodium Chloride) 100 mls @ 10 mls/hr IVP .Q10H [facility] Last Admin: 10/13/18 20:52 Dose: 10 mls/hr Dextrose (Dextrose 10% In Water) 1,000 mls @ 40 mls/hr IV .Q24H [facility] Last Admin: 10/13/18 07:46 Dose: 40 mls/hr Octreotide Acetate 1,250 mcg/ (Dextrose) 252.5 mls @ 10.1 mls/hr IV .Q24H [facility] Last Admin: 10/13/18 09:53 Dose: Not Given Norepinephrine Bitartrate 4 mg (/ Sodium Chloride) 250 mls @ 15 mls/hr IV .[id number] PRN; Protocol PRN Reason: TITRATE PER MD ORDER Last Admin: 10/14/18 07:26 Dose: 30 mcg/min, 112.5 mls/hr Vasopressin 40 units/ Dextrose 40 mls @ 2.4 mls/hr IV .[id number] PRN; Protocol PRN Reason: PER TITRATION PROTOCOL Last Admin: 10/13/18 17:39 Dose: 0.04 units/min, 2.4 mls/hr Sodium Bicarbonate 150 meq/ (Dextrose) 1,000 mls @ 150 mls/hr IV .Q6H40M [facility] Last Admin: 10/14/18 08:15 Dose: 150 mls/hr Epinephrine HCl 1 mg/ Dextrose 251 mls @ 15.06 mls/hr IV .[id number] [facility]; Protocol Stop: 10/14/18 12:00 Last Admin: 10/14/18 07:36 Dose: 10 mcg/min, 150.6 mls/hr Piperacillin Sod/Tazobactam (Sod 3.375 gm/ Sodium Chloride) 100 mls @ 200 mls/hr IVPB Q6H [facility]; Protocol Last Admin: 10/14/18 07:44 Dose: 200 mls/hr Lactulose (Enulose) 20 gm PO Q12H [facility] Last Admin: 10/14/18 06:44 Dose: Not Given Phytonadione (Vitamin K Inj) 10 mg IV Q24H [facility] Stop: 10/15/18 08:31 Last Admin: 10/14/18 07:44 Dose: 10 mg Potassium Chloride (K-Dur 20 Meq Er Tab) 40 meq PO DAILY [facility] Last Admin: 10/13/18 11:41 Dose: Not Given Rifaximin (Xifaxan) 550 mg PO BID [facility]; Protocol Last Admin: 10/13/18 18:42 Dose: Not Given - Labs Labs: 10/14/18 05:55 10/14/18 05:55 PT 38.0 SECONDS (9.7-12.2) H D 10/14/18 05:03 INR 3.5 H* D 10/14/18 05:03 APTT 69 SECONDS (21-34) H D 10/13/18 09:24 - Constitutional Appears: Toxic, In Acute Distress, Chronically Ill - Head Exam Head Exam: ATRAUMATIC, NORMAL INSPECTION - Eye Exam Eye Exam: EOMI, Scleral icterus - ENT Exam ENT Exam: Mucous Membranes Moist, Normal Exam - Respiratory Exam Respiratory Exam: Rhonchi, Wheezes Additional comments: Intubated - Cardiovascular Exam Cardiovascular Exam: Tachycardia, +S1, +S2 - GI/Abdominal Exam GI & Abdominal Exam: Distended, Firm. absent: Tenderness, Normal Bowel Sounds - Extremities Exam Extremities Exam: Full ROM, Normal Inspection - Neurological Exam Neurological Exam: absent: Awake, Oriented x3 - Psychiatric Exam Psychiatric exam: absent: Normal Affect, Normal Mood - Skin Skin Exam: Dry. 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 -Paracentesis 10/12/18, 3L clear fluid. Does not meet SBP by neutrophil count. -MELD 39, previously 25 -Recommend PPI IV daily, d/c drip. -Recommend holding lasix, spironolactone, coreg while hypotensive. -If able to place NG tube, continue Lactulose, titrate to 2-3 BMs daily, as well as rifaximin -Continue rocephin, zosyn -Volume replacement, Octreotide, midodrine, albumin 25% for treatment of HRS -H/H transfusion goal 7, avoid over resuscitation in cirrhotic which can increase portal HTN significantly. -He has refractory decompensation despite medications. Recommend liver transplant evaluation when improving. He has been sober 4 months and may meet requirements for a trial at [facility]. -Patient has a very poor prognosis in setting of multiorgan failure. Case discussed with Dr. Martel; See attestation. <Danyel Martel - Last Filed: 10/14/18 09:16> Objective - Vital Signs/Intake and Output Vital Signs (last 24 hours): Temp Pulse Resp BP Pulse Ox 95 F L 113 H 23 98/64 L 100 10/13/18 18:00 10/13/18 20:26 10/13/18 20:35 10/14/18 07:26 10/13/18 14:00 Intake and Output: 10/14/18 10/14/18 06:59 18:59 Intake Total 2559.1 250 Balance 2559.1 250 - Medications Medications: Current Medications Albumin Human (Albumin Human 25% (12.5 Gm/50 Ml)) 12.5 gm IV Q8H [facility] Stop: 10/15/18 19:16 Last Admin: 10/14/18 03:17 Dose: 12.5 gm Folic Acid (Folic Acid) 1 mg PO DAILY [facility] Last Admin: 10/14/18 09:03 Dose: Not Given Pantoprazole Sodium 80 mg/ (Sodium Chloride) 100 mls @ 10 mls/hr IVP .Q10H [facility] Last Admin: 10/14/18 08:30 Dose: 10 mls/hr Dextrose (Dextrose 10% In Water) 1,000 mls @ 40 mls/hr IV .Q24H [facility] Last Admin: 10/13/18 07:46 Dose: 40 mls/hr Octreotide Acetate 1,250 mcg/ (Dextrose) 252.5 mls @ 10.1 mls/hr IV .Q24H [facility] Last Admin: 10/13/18 09:53 Dose: Not Given Norepinephrine Bitartrate 4 mg (/ Sodium Chloride) 250 mls @ 15 mls/hr IV .[id number] PRN; Protocol PRN Reason: TITRATE PER MD ORDER Last Admin: 10/14/18 07:26 Dose: 30 mcg/min, 112.5 mls/hr Vasopressin 40 units/ Dextrose 40 mls @ 2.4 mls/hr IV .[id number] PRN; Protocol PRN Reason: PER TITRATION PROTOCOL Last Admin: 10/13/18 17:39 Dose: 0.04 units/min, 2.4 mls/hr Sodium Bicarbonate 150 meq/ (Dextrose) 1,000 mls @ 150 mls/hr IV .Q6H40M [facility] Last Admin: 10/14/18 08:15 Dose: 150 mls/hr Epinephrine HCl 1 mg/ Dextrose 251 mls @ 15.06 mls/hr IV .[id number] [facility]; Protocol Stop: 10/14/18 12:00 Last Admin: 10/14/18 07:36 Dose: 10 mcg/min, 150.6 mls/hr Piperacillin Sod/Tazobactam (Sod 3.375 gm/ Sodium Chloride) 100 mls @ 200 mls/hr IVPB Q6H [facility]; Protocol Last Admin: 10/14/18 07:44 Dose: 200 mls/hr Lactulose (Enulose) 20 gm PO Q12H [facility] Last Admin: 10/14/18 06:44 Dose: Not Given Midodrine (Proamatine) 10 mg NG TID [facility] Phytonadione (Vitamin K Inj) 10 mg IV Q24H [facility] Stop: 10/15/18 08:31 Last Admin: 10/14/18 07:44 Dose: 10 mg Potassium Chloride (K-Dur 20 Meq Er Tab) 40 meq PO DAILY [facility] Last Admin: 10/14/18 09:03 Dose: Not Given Rifaximin (Xifaxan) 550 mg PO BID [facility]; Protocol Last Admin: 10/14/18 09:04 Dose: Not Given - Labs Labs: 10/14/18 05:55 10/14/18 05:55 PT 38.0 SECONDS (9.7-12.2) H D 10/14/18 05:03 INR 3.5 H* D 10/14/18 05:03 APTT 69 SECONDS (21-34) H D 10/13/18 09:24 Attending/Attestation - Attestation I have personally seen and examined this patient.: Yes I have fully participated in the care of the patient.: Yes I have reviewed all pertinent clinical information, including history, physical exam and plan: Yes Notes (Text): 10/14/18 09:11 I have seen and examined patient with GI fellow. He remains intubated and sedated in intensive care unit with maximum dose 3 vasopressor agents. Bloody/purulent discharge noted via ET tube. There is no reported abdominal pain, vomiting, diarrhea. Scant urine output over past 24 hours noted. Decompensated ETOH cirrhosis - MELD 39 Ascites s/p paracentesis showing no presence of SBP Sepsis - severe posing threat to patient life Acute renal insufficiency Respiratory failure s/p intubation NSTEMI - NPO - Vasopressor and ventilator management as per critical care team - Continue with antibiotic therapy, follow up blood culture results - Continue to monitor LFTs - Continue with HRS management (octreotide/midodrine) and monitor renal function - Overall patient prognosis is quite poor given clinical scenario with profound sepsis, decompensated liver disease, acute renal decompensation. Patient is not a transplant candidate in current state. Will continue to monitor clinical course.
[2018-10-14] MEDS: Potassium Chloride 20 mEq ER Tab PO SCH (09:03)
[2018-10-14] MEDS: Octreotide 1,250 MCG in Dextrose 5% In Water 250 ML IV SCH (09:20)
--- NOTE | 2018-10-14 10:47 | RAD ---
Date of service: 10/13/2018 HISTORY: et tube COMPARISON: Portable chest 10/13/2018 9:25 a.m.. FINDINGS: LUNGS: Endotracheal tube is now identified in position terminating 1.3 cm above the da. Right central venous line unchanged in position. Increasing pulmonary opacities appreciated with subtle increase in interstitial markings potentially a function of CHF though asymmetry is more at the right than the left and underlying developing pneumonia is not excluded at the mid inferior lung zones bilaterally, right greater than left. Left apical bulla reiterated versus potential cavitary lesion. PLEURA: Trace right pleural effusion present. None is identified at the left. No pneumothorax bilaterally. Left apical pleural thickening or loculated effusion again evident. CARDIOVASCULAR: Calcific atherosclerotic changes are seen related to the thoracic aorta. Normal cardiac size. Potential pulmonary vascular congestion appreciable. OSSEOUS STRUCTURES: No significant abnormalities. VISUALIZED UPPER ABDOMEN: Normal. OTHER FINDINGS: None. IMPRESSION: Increasing mid to inferior pulmonary opacity is asymmetrically greater the right than left lung and with peripheral increased interstitial markings may indicate CHF though infiltrates are favored due to asymmetry as discussed above. Continued clinical correlation is advised as well as radiographic follow-up. Small right pleural effusion developing. Left apical pleural thickening reiterated with bullous changes or cavitary pathology again evident. Interval endotracheal tube placement as discussed above.
--- NOTE | 2018-10-14 10:47 | CP.CCUPN ---
CCU Subjective - Physician Review Events Since Last Encounter (Free Text): Patient was hypoxic, hypotensive, and AMS yesterday requiring central line and intubation. Was placed on 3 pressors with no improvement in blood pressure likely due to low ph 2/2 to hypoxia. Vented at max setting with minimal improvement in oxygenation. Poor prognosis. Family has agreed to DNR. Subjective (Free Text): PGY-1 Critical Care Progress Note for Dr. Eckert's service Patient seen and examined at bedside. ROS limited 2/2 intubation Critical Care Time Spent (in minutes): 35 CCU Objective - Vital Signs / Intake & Output Vital Signs (Last 4 hours): Vital Signs BP 10/14/18 09:55 46/30 L 10/14/18 07:26 98/64 L Intake and Output (Last 8hrs): Intake & Output 10/13/18 10/14/18 10/14/18 22:59 06:59 14:59 Intake Total 2774.9 1513 2362.6 Balance 2774.9 1513 2362.6 Intake: IV 491 1513 751 Intake, IV Amount 835.9 1611.6 Left Forearm 90 RIJ TLC 1 600 RIJ TLC 2 131.5 452 KASSIE TLC 3 14.4 9.6 Right Wrist 600 550 Blood Product 1448 Apheresis Plts Acda Lr 203 Irr 2nd Unit [id number] Red Blood Cells Cpd As1 325 Lr Unit [id number] Red Blood Cells Cpd As1 325 Lr Unit [id number] Other: # Voids Urethral (Avery) 5 - Physical Exam Physical Exam Limitations: Positive for: Clinical Condition Head: Positive for: Atraumatic, Normocephalic, Other (ET tube) Conjunctiva: Positive for: Icteric Mouth: Positive for: Moist Mucous Membranes Neck: Positive for: Normal Range of Motion, Other (right IJ central line in place) Respiratory/Chest: Negative for: Respiratory Distress, Retracting, Tachypneic Cardiovascular: Positive for: Normal S1, S2 Abdomen: Positive for: Distention. Negative for: Tenderness, Peritoneal Signs, Guarding Upper Extremity: Positive for: Normal Inspection. Negative for: Cyanosis, Edema Neurological: Negative for: GCS=15 Skin: Positive for: Warm, Dry - Medications Active Medications: Active Medications Generic Name Dose Route Start Last Admin Trade Name Freq PRN Reason Stop Dose Admin Albumin Human 12.5 gm 10/12/18 19:15 10/14/18 03:17 Albumin Human 25% (12.5 Gm/50 Ml) IV 10/15/18 19:16 12.5 gm Q8H SYLVIA Administration Folic Acid 1 mg 10/13/18 10:00 10/14/18 09:03 Folic Acid PO Not Given DAILY SYLVIA Pantoprazole Sodium 80 mg/ 100 mls @ 10 mls/hr 10/12/18 17:30 10/14/18 08:30 Sodium Chloride IVP 10 mls/hr .Q10H SYLVIA Administration 8 MG/HR Dextrose 1,000 mls @ 40 mls/hr 10/13/18 07:00 10/13/18 07:46 Dextrose 10% In Water IV 40 mls/hr .Q24H SYLVIA Administration Octreotide Acetate 1,250 mcg/ 252.5 mls @ 10.1 mls/hr 10/13/18 09:15 10/14/18 09:20 Dextrose IV Not Given .Q24H SYLVIA 50 MCG/HR Norepinephrine Bitartrate 4 mg 250 mls @ 15 mls/hr 10/13/18 08:55 10/14/18 09:55 / Sodium Chloride IV 30 mcg/min .[id number] PRN 112.5 mls/hr TITRATE PER MD ORDER Administration Protocol 4 MCG/MIN Vasopressin 40 units/ Dextrose 40 mls @ 2.4 mls/hr 10/13/18 09:00 10/13/18 17:39 IV 0.04 units/min .[id number] PRN 2.4 mls/hr PER TITRATION PROTOCOL Administration Protocol 0.04 UNITS/MIN Sodium Bicarbonate 150 meq/ 1,000 mls @ 150 mls/hr 10/13/18 19:20 10/14/18 08:15 Dextrose IV 150 mls/hr .[id number] SYLVIA Administration Epinephrine HCl 1 mg/ Dextrose 251 mls @ 15.06 mls/hr 10/13/18 19:21 10/14/18 09:19 IV 10/14/18 12:00 10 mcg/min .[id number] ONE 150.6 mls/hr Administration Protocol 1 MCG/MIN Piperacillin Sod/Tazobactam 100 mls @ 200 mls/hr 10/13/18 20:30 10/14/18 07:44 Sod 3.375 gm/ Sodium Chloride IVPB 200 mls/hr Q6H SYLVIA Administration Protocol Lactulose 20 gm 10/12/18 18:15 10/14/18 06:44 Enulose PO Not Given Q12H [facility] Midodrine 10 mg 10/14/18 10:00 10/14/18 09:21 Proamatine NG Not Given TID SYLVIA Phytonadione 10 mg 10/13/18 08:30 10/14/18 07:44 Vitamin K Inj IV 10/15/18 08:31 10 mg Q24H SYLVIA Administration Potassium Chloride 40 meq 10/12/18 10:15 10/14/18 09:03 K-Dur 20 Meq Er Tab PO Not Given DAILY [facility] Rifaximin 550 mg 10/13/18 10:00 10/14/18 09:04 Xifaxan PO Not Given BID [facility] Protocol - Patient Studies Lab Studies: Microbiology Studies 10/12/18 10:11 Blood Culture - Preliminary Blood-Thru Central Line NO GROWTH AFTER 48 HOURS 10/12/18 16:41 MRSA Culture (Admit) - Final Nose MRSA NOT DETECTED 10/12/18 17:57 Urine Culture - Final Urine,Catheterized No Growth (<1,000 CFU/ML) 10/12/18 19:00 Gram Stain - Final Ascitic Fluid 10/12/18 10:28 Blood Culture - Preliminary Blood-Thru Central Line NO GROWTH AFTER 24 HOURS Lab Studies 10/14/18 10/14/18 10/14/18 Range/Units 05:55 05:55 05:55 WBC 18.7 H (4.8-10.8) K/uL RBC 2.65 L (4.40-5.90) Mil/uL Hgb 7.8 L (12.0-18.0) g/dL Hct 25.1 L (35.0-51.0) % MCV 94.6 H D (80.0-94.0) fL MCH 29.5 (27.0-31.0) pg MCHC 31.2 L (33.0-37.0) g/dL RDW 17.0 H (11.5-14.5) % Plt Count 61 L D (130-400) K/uL MPV 8.7 (7.2-11.7) fL Neut % (Auto) 78.2 H (50.0-75.0) % Lymph % (Auto) 5.8 L (20.0-40.0) % [place] % (Auto) 5.7 (0.0-10.0) % Eos % (Auto) 9.9 H (0.0-4.0) % Baso % (Auto) 0.4 (0.0-2.0) % Neut # (Auto) 14.6 H (1.8-7.0) K/uL Lymph # (Auto) 1.1 (1.0-4.3) K/uL [place] # (Auto) 1.1 H (0.0-0.8) K/uL Eos # (Auto) 1.8 H (0.0-0.7) K/uL Baso # (Auto) 0.1 (0.0-0.2) K/uL Neutrophils % (Manual) 48 L (50-75) % Band Neutrophils % 40 H* (0-2) % Lymphocytes % (Manual) 4 L (20-40) % Monocytes % (Manual) 6 (0-10) % Metamyelocytes % 2 H (0-0) % Nucleated RBC % 9 H (0-0) % Toxic Granulation Present Dohle Bodies Present Silvana Rods Platelet Estimate Decreased L (NORMAL) Large Platelets Present Polychromasia Hypochromasia (manual) Slight Poikilocytosis (manual Slight Anisocytosis (manual) Slight Microcytosis (manual) Macrocytosis (manual) Ovalocytes Slight Cris Cells Moderate Schistocytes PT (9.7-12.2) SECONDS INR Puncture Site pCO2 (35-45) mm/Hg pO2 (80-100) mm/Hg HCO3 (21-28) mmol/L ABG pH (7.35-7.45) ABG Total CO2 (22-28) mmol/L ABG O2 Saturation (95-98) % ABG Base Excess (-2.0-3.0) mmol/L Arnold Test ABG Potassium (3.6-5.2) mmol/L A-a O2 Difference mm/Hg Respiratory Index Glucose (75-110) mg/dl Lactate (0.7-2.1) mmol/L Vent Mode Mechanical Rate FiO2 % Tidal Volume PEEP Crit Value Called To Crit Value Called By Crit Value Read Back Blood Gas Notified Time Sodium 137 (132-148) mmol/L Potassium 4.7 (3.6-5.2) mmol/L Chloride 101 (98-107) mmol/L Carbon Dioxide 12 L (22-30) mmol/L Anion Gap 29 H (10-20) BUN 26 H (9-20) mg/dL Creatinine 2.8 H (0.8-1.5) mg/dL Est GFR ( Amer) 30 Est GFR (Non-Af Amer) 25 POC Glucose (mg/dL) (65-110) mg/dL Random Glucose 137 H (75-110) mg/dL Lactic Acid 17.6 H* (0.7-2.1) mmol/L Calcium 6.9 L (8.6-10.4) mg/dl Phosphorus 11.7 H (2.5-4.5) mg/dL Magnesium 2.0 (1.6-2.3) mg/dL Total Bilirubin 3.4 H (0.2-1.3) mg/dL AST 232 H D (17-59) U/L ALT 34 (21-72) U/L Alkaline Phosphatase 61 (38-126) U/L Total Creatine Kinase (55-170) U/L CK-MB (Mass) (0.0-3.38) ng/mL Troponin I (0.00-0.120) ng/mL Total Protein 4.7 L (6.3-8.3) g/dL Albumin 2.4 L (3.5-5.0) g/dL Globulin 2.3 (2.2-3.9) gm/dL Albumin/Globulin Ratio 1.1 (1.0-2.1) Arterial Blood Potassium (3.6-5.2) mmol/L Blood Type Antibody Screen 10/14/18 10/14/18 10/14/18 Range/Units 05:29 05:03 02:05 WBC (4.8-10.8) K/uL RBC (4.40-5.90) Mil/uL Hgb (12.0-18.0) g/dL Hct (35.0-51.0) % MCV (80.0-94.0) fL MCH (27.0-31.0) pg MCHC (33.0-37.0) g/dL RDW (11.5-14.5) % Plt Count (130-400) K/uL MPV (7.2-11.7) fL Neut % (Auto) (50.0-75.0) % Lymph % (Auto) (20.0-40.0) % [place] % (Auto) (0.0-10.0) % Eos % (Auto) (0.0-4.0) % Baso % (Auto) (0.0-2.0) % Neut # (Auto) (1.8-7.0) K/uL Lymph # (Auto) (1.0-4.3) K/uL [place] # (Auto) (0.0-0.8) K/uL Eos # (Auto) (0.0-0.7) K/uL Baso # (Auto) (0.0-0.2) K/uL Neutrophils % (Manual) (50-75) % Band Neutrophils % (0-2) % Lymphocytes % (Manual) (20-40) % Monocytes % (Manual) (0-10) % Metamyelocytes % (0-0) % Nucleated RBC % (0-0) % Toxic Granulation Dohle Bodies Silvana Rods Platelet Estimate (NORMAL) Large Platelets Polychromasia Hypochromasia (manual) Poikilocytosis (manual Anisocytosis (manual) Microcytosis (manual) Macrocytosis (manual) Ovalocytes [place] Cells Schistocytes PT 38.0 H D (9.7-12.2) SECONDS INR 3.5 H* D Puncture Site Fem Fem pCO2 75 H* 43 (35-45) mm/Hg pO2 18 L* 46 L (80-100) mm/Hg HCO3 4.9 L* 3.1 L* (21-28) mmol/L ABG pH 6.83 L* 6.85 L* (7.35-7.45) ABG Total CO2 14.8 L 8.8 L (22-28) mmol/L ABG O2 Saturation 21.5 L 74.4 L (95-98) % ABG Base Excess -22.5 L -26.1 L (-2.0-3.0) mmol/L Arnold Test Na Na ABG Potassium 4.9 4.8 (3.6-5.2) mmol/L A-a O2 Difference 601.0 613.0 mm/Hg Respiratory Index 33.4 13.3 Glucose 119 H 154 H (75-110) mg/dl Lactate 17.3 H* 14.2 H* (0.7-2.1) mmol/L Vent Mode Prvc Prvc Mechanical Rate 23 23 FiO2 100.0 100.0 % Tidal Volume 420 380 PEEP 8 8 Crit Value Called To Dr. iraida Jeffers rn Crit Value Called By Austyn barking machine feeder Austyn barking machine feeder Crit Value Read Back Y Y Blood Gas Notified Time 532 210 Sodium 138.0 136.0 (132-148) mmol/L Potassium (3.6-5.2) mmol/L Chloride 101.0 105.0 (98-107) mmol/L Carbon Dioxide (22-30) mmol/L Anion Gap (10-20) BUN (9-20) mg/dL Creatinine (0.8-1.5) mg/dL Est GFR ( Amer) Est GFR (Non-Af Amer) POC Glucose (mg/dL) (65-110) mg/dL Random Glucose (75-110) mg/dL Lactic Acid (0.7-2.1) mmol/L Calcium (8.6-10.4) mg/dl Phosphorus (2.5-4.5) mg/dL Magnesium (1.6-2.3) mg/dL Total Bilirubin (0.2-1.3) mg/dL AST (17-59) U/L ALT (21-72) U/L Alkaline Phosphatase (38-126) U/L Total Creatine Kinase (55-170) U/L CK-MB (Mass) (0.0-3.38) ng/mL Troponin I (0.00-0.120) ng/mL Total Protein (6.3-8.3) g/dL Albumin (3.5-5.0) g/dL Globulin (2.2-3.9) gm/dL Albumin/Globulin Ratio (1.0-2.1) Arterial Blood Potassium 4.9 4.8 (3.6-5.2) mmol/L Blood Type Antibody Screen 10/13/18 10/13/18 10/13/18 Range/Units 23:31 21:15 19:14 WBC (4.8-10.8) K/uL RBC (4.40-5.90) Mil/uL Hgb (12.0-18.0) g/dL Hct (35.0-51.0) % MCV (80.0-94.0) fL MCH (27.0-31.0) pg MCHC (33.0-37.0) g/dL RDW (11.5-14.5) % Plt Count (130-400) K/uL MPV (7.2-11.7) fL Neut % (Auto) (50.0-75.0) % Lymph % (Auto) (20.0-40.0) % [place] % (Auto) (0.0-10.0) % Eos % (Auto) (0.0-4.0) % Baso % (Auto) (0.0-2.0) % Neut # (Auto) (1.8-7.0) K/uL Lymph # (Auto) (1.0-4.3) K/uL [place] # (Auto) (0.0-0.8) K/uL Eos # (Auto) (0.0-0.7) K/uL Baso # (Auto) (0.0-0.2) K/uL Neutrophils % (Manual) (50-75) % Band Neutrophils % (0-2) % Lymphocytes % (Manual) (20-40) % Monocytes % (Manual) (0-10) % Metamyelocytes % (0-0) % Nucleated RBC % (0-0) % Toxic Granulation Dohle Bodies Silvana Rods Platelet Estimate (NORMAL) Large Platelets Polychromasia Hypochromasia (manual) Poikilocytosis (manual Anisocytosis (manual) Microcytosis (manual) Macrocytosis (manual) Ovalocytes [place] Cells Schistocytes PT (9.7-12.2) SECONDS INR Puncture Site pCO2 (35-45) mm/Hg pO2 (80-100) mm/Hg HCO3 (21-28) mmol/L ABG pH (7.35-7.45) ABG Total CO2 (22-28) mmol/L ABG O2 Saturation (95-98) % ABG Base Excess (-2.0-3.0) mmol/L Arnold Test ABG Potassium (3.6-5.2) mmol/L A-a O2 Difference mm/Hg Respiratory Index Glucose (75-110) mg/dl Lactate (0.7-2.1) mmol/L Vent Mode Mechanical Rate FiO2 % Tidal Volume PEEP Crit Value Called To Crit Value Called By Crit Value Read Back Blood Gas Notified Time Sodium (132-148) mmol/L Potassium (3.6-5.2) mmol/L Chloride (98-107) mmol/L Carbon Dioxide (22-30) mmol/L Anion Gap (10-20) BUN (9-20) mg/dL Creatinine (0.8-1.5) mg/dL Est GFR ( Amer) Est GFR (Non-Af Amer) POC Glucose (mg/dL) 96 129 H (65-110) mg/dL Random Glucose (75-110) mg/dL Lactic Acid (0.7-2.1) mmol/L Calcium (8.6-10.4) mg/dl Phosphorus (2.5-4.5) mg/dL Magnesium (1.6-2.3) mg/dL Total Bilirubin (0.2-1.3) mg/dL AST (17-59) U/L ALT (21-72) U/L Alkaline Phosphatase (38-126) U/L Total Creatine Kinase 9576 H (55-170) U/L CK-MB (Mass) 34.4 H (0.0-3.38) ng/mL Troponin I 0.6330 H* (0.00-0.120) ng/mL Total Protein (6.3-8.3) g/dL Albumin (3.5-5.0) g/dL Globulin (2.2-3.9) gm/dL Albumin/Globulin Ratio (1.0-2.1) Arterial Blood Potassium (3.6-5.2) mmol/L Blood Type Antibody Screen 10/13/18 10/13/18 10/13/18 Range/Units 18:25 18:25 18:25 WBC 27.4 H (4.8-10.8) K/uL RBC 2.49 L (4.40-5.90) Mil/uL Hgb 7.4 L (12.0-18.0) g/dL Hct 22.6 L (35.0-51.0) % MCV 90.5 D (80.0-94.0) fL MCH 29.9 (27.0-31.0) pg MCHC 33.0 (33.0-37.0) g/dL RDW 17.5 H (11.5-14.5) % Plt Count 84 L D (130-400) K/uL MPV 8.6 (7.2-11.7) fL Neut % (Auto) 81.7 H (50.0-75.0) % Lymph % (Auto) 1.0 L (20.0-40.0) % [place] % (Auto) 5.5 (0.0-10.0) % Eos % (Auto) 11.5 H (0.0-4.0) % Baso % (Auto) 0.3 (0.0-2.0) % Neut # (Auto) 22.4 H (1.8-7.0) K/uL Lymph # (Auto) 0.3 L (1.0-4.3) K/uL [place] # (Auto) 1.5 H (0.0-0.8) K/uL Eos # (Auto) 3.2 H (0.0-0.7) K/uL Baso # (Auto) 0.1 (0.0-0.2) K/uL Neutrophils % (Manual) 37 L (50-75) % Band Neutrophils % 41 H* (0-2) % Lymphocytes % (Manual) 3 L (20-40) % Monocytes % (Manual) 19 H (0-10) % Metamyelocytes % (0-0) % Nucleated RBC % 2 H (0-0) % Toxic Granulation Dohle Bodies Silvana Rods Platelet Estimate Decreased L (NORMAL) Large Platelets Polychromasia Slight Hypochromasia (manual) Slight Poikilocytosis (manual Anisocytosis (manual) Slight Microcytosis (manual) Slight Macrocytosis (manual) Slight Ovalocytes Slight Cris Cells Slight Schistocytes Slight PT 27.3 H D (9.7-12.2) SECONDS INR 2.5 D Puncture Site pCO2 (35-45) mm/Hg pO2 (80-100) mm/Hg HCO3 (21-28) mmol/L ABG pH (7.35-7.45) ABG Total CO2 (22-28) mmol/L ABG O2 Saturation (95-98) % ABG Base Excess (-2.0-3.0) mmol/L Arnold Test ABG Potassium (3.6-5.2) mmol/L A-a O2 Difference mm/Hg Respiratory Index Glucose (75-110) mg/dl Lactate (0.7-2.1) mmol/L Vent Mode Mechanical Rate FiO2 % Tidal Volume PEEP Crit Value Called To Crit Value Called By Crit Value Read Back Blood Gas Notified Time Sodium 134 (132-148) mmol/L Potassium 4.2 (3.6-5.2) mmol/L Chloride 104 (98-107) mmol/L Carbon Dioxide 11 L* (22-30) mmol/L Anion Gap 23 H (10-20) BUN 29 H (9-20) mg/dL Creatinine 2.8 H (0.8-1.5) mg/dL Est GFR ( Amer) 30 Est GFR (Non-Af Amer) 25 POC Glucose (mg/dL) (65-110) mg/dL Random Glucose 166 H D (75-110) mg/dL Lactic Acid (0.7-2.1) mmol/L Calcium 6.8 L (8.6-10.4) mg/dl Phosphorus (2.5-4.5) mg/dL Magnesium (1.6-2.3) mg/dL Total Bilirubin (0.2-1.3) mg/dL AST (17-59) U/L ALT (21-72) U/L Alkaline Phosphatase (38-126) U/L Total Creatine Kinase (55-170) U/L CK-MB (Mass) (0.0-3.38) ng/mL Troponin I (0.00-0.120) ng/mL Total Protein (6.3-8.3) g/dL Albumin (3.5-5.0) g/dL Globulin (2.2-3.9) gm/dL Albumin/Globulin Ratio (1.0-2.1) Arterial Blood Potassium (3.6-5.2) mmol/L Blood Type Antibody Screen 10/13/18 10/13/18 10/13/18 Range/Units 18:25 17:54 11:39 WBC (4.8-10.8) K/uL RBC (4.40-5.90) Mil/uL Hgb (12.0-18.0) g/dL Hct (35.0-51.0) % MCV (80.0-94.0) fL MCH (27.0-31.0) pg MCHC (33.0-37.0) g/dL RDW (11.5-14.5) % Plt Count (130-400) K/uL MPV (7.2-11.7) fL Neut % (Auto) (50.0-75.0) % Lymph % (Auto) (20.0-40.0) % [place] % (Auto) (0.0-10.0) % Eos % (Auto) (0.0-4.0) % Baso % (Auto) (0.0-2.0) % Neut # (Auto) (1.8-7.0) K/uL Lymph # (Auto) (1.0-4.3) K/uL [place] # (Auto) (0.0-0.8) K/uL Eos # (Auto) (0.0-0.7) K/uL Baso # (Auto) (0.0-0.2) K/uL Neutrophils % (Manual) (50-75) % Band Neutrophils % (0-2) % Lymphocytes % (Manual) (20-40) % Monocytes % (Manual) (0-10) % Metamyelocytes % (0-0) % Nucleated RBC % (0-0) % Toxic Granulation Dohle Bodies Silvana Rods Platelet Estimate (NORMAL) Large Platelets Polychromasia Hypochromasia (manual) Poikilocytosis (manual Anisocytosis (manual) Microcytosis (manual) Macrocytosis (manual) Ovalocytes [place] Cells Schistocytes PT (9.7-12.2) SECONDS INR Puncture Site pCO2 (35-45) mm/Hg pO2 (80-100) mm/Hg HCO3 (21-28) mmol/L ABG pH (7.35-7.45) ABG Total CO2 (22-28) mmol/L ABG O2 Saturation (95-98) % ABG Base Excess (-2.0-3.0) mmol/L Arnold Test ABG Potassium (3.6-5.2) mmol/L A-a O2 Difference mm/Hg Respiratory Index Glucose (75-110) mg/dl Lactate (0.7-2.1) mmol/L Vent Mode Mechanical Rate FiO2 % Tidal Volume PEEP Crit Value Called To Crit Value Called By Crit Value Read Back Blood Gas Notified Time Sodium (132-148) mmol/L Potassium (3.6-5.2) mmol/L Chloride (98-107) mmol/L Carbon Dioxide (22-30) mmol/L Anion Gap (10-20) BUN (9-20) mg/dL Creatinine (0.8-1.5) mg/dL Est GFR ( Amer) Est GFR (Non-Af Amer) POC Glucose (mg/dL) 127 H 112 H (65-110) mg/dL Random Glucose (75-110) mg/dL Lactic Acid 7.0 H* (0.7-2.1) mmol/L Calcium (8.6-10.4) mg/dl Phosphorus (2.5-4.5) mg/dL Magnesium (1.6-2.3) mg/dL Total Bilirubin (0.2-1.3) mg/dL AST (17-59) U/L ALT (21-72) U/L Alkaline Phosphatase (38-126) U/L Total Creatine Kinase (55-170) U/L CK-MB (Mass) (0.0-3.38) ng/mL Troponin I (0.00-0.120) ng/mL Total Protein (6.3-8.3) g/dL Albumin (3.5-5.0) g/dL Globulin (2.2-3.9) gm/dL Albumin/Globulin Ratio (1.0-2.1) Arterial Blood Potassium (3.6-5.2) mmol/L Blood Type Antibody Screen 10/12/18 Range/Units 08:15 WBC (4.8-10.8) K/uL RBC (4.40-5.90) Mil/uL Hgb (12.0-18.0) g/dL Hct (35.0-51.0) % MCV (80.0-94.0) fL MCH (27.0-31.0) pg MCHC (33.0-37.0) g/dL RDW (11.5-14.5) % Plt Count (130-400) K/uL MPV (7.2-11.7) fL Neut % (Auto) (50.0-75.0) % Lymph % (Auto) (20.0-40.0) % [place] % (Auto) (0.0-10.0) % Eos % (Auto) (0.0-4.0) % Baso % (Auto) (0.0-2.0) % Neut # (Auto) (1.8-7.0) K/uL Lymph # (Auto) (1.0-4.3) K/uL [place] # (Auto) (0.0-0.8) K/uL Eos # (Auto) (0.0-0.7) K/uL Baso # (Auto) (0.0-0.2) K/uL Neutrophils % (Manual) (50-75) % Band Neutrophils % (0-2) % Lymphocytes % (Manual) (20-40) % Monocytes % (Manual) (0-10) % Metamyelocytes % (0-0) % Nucleated RBC % (0-0) % Toxic Granulation Dohle Bodies Silvana Rods Platelet Estimate (NORMAL) Large Platelets Polychromasia Hypochromasia (manual) Poikilocytosis (manual Anisocytosis (manual) Microcytosis (manual) Macrocytosis (manual) Ovalocytes Cris Cells Schistocytes PT (9.7-12.2) SECONDS INR Puncture Site pCO2 (35-45) mm/Hg pO2 (80-100) mm/Hg HCO3 (21-28) mmol/L ABG pH (7.35-7.45) ABG Total CO2 (22-28) mmol/L ABG O2 Saturation (95-98) % ABG Base Excess (-2.0-3.0) mmol/L Arnold Test ABG Potassium (3.6-5.2) mmol/L A-a O2 Difference mm/Hg Respiratory Index Glucose (75-110) mg/dl Lactate (0.7-2.1) mmol/L Vent Mode Mechanical Rate FiO2 % Tidal Volume PEEP Crit Value Called To Crit Value Called By Crit Value Read Back Blood Gas Notified Time Sodium (132-148) mmol/L Potassium (3.6-5.2) mmol/L Chloride (98-107) mmol/L Carbon Dioxide (22-30) mmol/L Anion Gap (10-20) BUN (9-20) mg/dL Creatinine (0.8-1.5) mg/dL Est GFR ( Amer) Est GFR (Non-Af Amer) POC Glucose (mg/dL) (65-110) mg/dL Random Glucose (75-110) mg/dL Lactic Acid (0.7-2.1) mmol/L Calcium (8.6-10.4) mg/dl Phosphorus (2.5-4.5) mg/dL Magnesium (1.6-2.3) mg/dL Total Bilirubin (0.2-1.3) mg/dL AST (17-59) U/L ALT (21-72) U/L Alkaline Phosphatase (38-126) U/L Total Creatine Kinase (55-170) U/L CK-MB (Mass) (0.0-3.38) ng/mL Troponin I (0.00-0.120) ng/mL Total Protein (6.3-8.3) g/dL Albumin (3.5-5.0) g/dL Globulin (2.2-3.9) gm/dL Albumin/Globulin Ratio (1.0-2.1) Arterial Blood Potassium (3.6-5.2) mmol/L Blood Type O POSITIVE Antibody Screen Negative Laboratory Results - last 24 hr 10/12/18 10/13/18 10/13/18 08:15 11:39 17:54 WBC RBC Hgb Hct MCV MCH MCHC RDW Plt Count MPV Neut % (Auto) Lymph % (Auto) [place] % (Auto) Eos % (Auto) Baso % (Auto) Neut # (Auto) Lymph # (Auto) [place] # (Auto) Eos # (Auto) Baso # (Auto) Neutrophils % (Manual) Band Neutrophils % Lymphocytes % (Manual) Monocytes % (Manual) Metamyelocytes % Nucleated RBC % Toxic Granulation Dohle Bodies Silvana Rods Platelet Estimate Large Platelets Polychromasia Hypochromasia (manual) Poikilocytosis (manual Anisocytosis (manual) Microcytosis (manual) Macrocytosis (manual) Ovalocytes [place] Cells Schistocytes PT INR Puncture Site pCO2 pO2 HCO3 ABG pH ABG Total CO2 ABG O2 Saturation ABG Base Excess Arnold Test ABG Potassium A-a O2 Difference Respiratory Index Glucose Lactate Vent Mode Mechanical Rate FiO2 Tidal Volume PEEP Crit Value Called To Crit Value Called By Crit Value Read Back Blood Gas Notified Time Sodium Potassium Chloride Carbon Dioxide Anion Gap BUN Creatinine Est GFR ( Amer) Est GFR (Non-Af Amer) POC Glucose (mg/dL) 112 H 127 H Random Glucose Lactic Acid Calcium Phosphorus Magnesium Total Bilirubin AST ALT Alkaline Phosphatase Total Creatine Kinase CK-MB (Mass) Troponin I Total Protein Albumin Globulin Albumin/Globulin Ratio Arterial Blood Potassium Blood Type O POSITIVE Antibody Screen Negative 10/13/18 10/13/18 10/13/18 18:25 18:25 18:25 WBC 27.4 H RBC 2.49 L Hgb 7.4 L Hct 22.6 L MCV 90.5 D MCH 29.9 MCHC 33.0 RDW 17.5 H Plt Count 84 L D MPV 8.6 Neut % (Auto) 81.7 H Lymph % (Auto) 1.0 L [place] % (Auto) 5.5 Eos % (Auto) 11.5 H Baso % (Auto) 0.3 Neut # (Auto) 22.4 H Lymph # (Auto) 0.3 L [place] # (Auto) 1.5 H Eos # (Auto) 3.2 H Baso # (Auto) 0.1 Neutrophils % (Manual) 37 L Band Neutrophils % 41 H* Lymphocytes % (Manual) 3 L Monocytes % (Manual) 19 H Metamyelocytes % Nucleated RBC % 2 H Toxic Granulation Dohle Bodies Silvana Rods Platelet Estimate Decreased L Large Platelets Polychromasia Slight Hypochromasia (manual) Slight Poikilocytosis (manual Anisocytosis (manual) Slight Microcytosis (manual) Slight Macrocytosis (manual) Slight Ovalocytes Slight Cris Cells Slight Schistocytes Slight PT 27.3 H D INR 2.5 D Puncture Site pCO2 pO2 HCO3 ABG pH ABG Total CO2 ABG O2 Saturation ABG Base Excess Arnold Test ABG Potassium A-a O2 Difference Respiratory Index Glucose Lactate Vent Mode Mechanical Rate FiO2 Tidal Volume PEEP Crit Value Called To Crit Value Called By Crit Value Read Back Blood Gas Notified Time Sodium Potassium Chloride Carbon Dioxide Anion Gap BUN Creatinine Est GFR ( Amer) Est GFR (Non-Af Amer) POC Glucose (mg/dL) Random Glucose Lactic Acid 7.0 H* Calcium Phosphorus Magnesium Total Bilirubin AST ALT Alkaline Phosphatase Total Creatine Kinase CK-MB (Mass) Troponin I Total Protein Albumin Globulin Albumin/Globulin Ratio Arterial Blood Potassium Blood Type Antibody Screen 10/13/18 10/13/18 10/13/18 18:25 19:14 21:15 WBC RBC Hgb Hct MCV MCH MCHC RDW Plt Count MPV Neut % (Auto) Lymph % (Auto) [place] % (Auto) Eos % (Auto) Baso % (Auto) Neut # (Auto) Lymph # (Auto) [place] # (Auto) Eos # (Auto) Baso # (Auto) Neutrophils % (Manual) Band Neutrophils % Lymphocytes % (Manual) Monocytes % (Manual) Metamyelocytes % Nucleated RBC % Toxic Granulation Dohle Bodies Silvana Rods Platelet Estimate Large Platelets Polychromasia Hypochromasia (manual) Poikilocytosis (manual Anisocytosis (manual) Microcytosis (manual) Macrocytosis (manual) Ovalocytes Cris Cells Schistocytes PT INR Puncture Site pCO2 pO2 HCO3 ABG pH ABG Total CO2 ABG O2 Saturation ABG Base Excess Arnold Test ABG Potassium A-a O2 Difference Respiratory Index Glucose Lactate Vent Mode Mechanical Rate FiO2 Tidal Volume PEEP Crit Value Called To Crit Value Called By Crit Value Read Back Blood Gas Notified Time Sodium 134 Potassium 4.2 Chloride 104 Carbon Dioxide 11 L* Anion Gap 23 H BUN 29 H Creatinine 2.8 H Est GFR ( Amer) 30 Est GFR (Non-Af Amer) 25 POC Glucose (mg/dL) 129 H Random Glucose 166 H D Lactic Acid Calcium 6.8 L Phosphorus Magnesium Total Bilirubin AST ALT Alkaline Phosphatase Total Creatine Kinase 9576 H CK-MB (Mass) 34.4 H Troponin I 0.6330 H* Total Protein Albumin Globulin Albumin/Globulin Ratio Arterial Blood Potassium Blood Type Antibody Screen 10/13/18 10/14/18 10/14/18 23:31 02:05 05:03 WBC RBC Hgb Hct MCV MCH MCHC RDW Plt Count MPV Neut % (Auto) Lymph % (Auto) [place] % (Auto) Eos % (Auto) Baso % (Auto) Neut # (Auto) Lymph # (Auto) [place] # (Auto) Eos # (Auto) Baso # (Auto) Neutrophils % (Manual) Band Neutrophils % Lymphocytes % (Manual) Monocytes % (Manual) Metamyelocytes % Nucleated RBC % Toxic Granulation Dohle Bodies Silvana Rods Platelet Estimate Large Platelets Polychromasia Hypochromasia (manual) Poikilocytosis (manual Anisocytosis (manual) Microcytosis (manual) Macrocytosis (manual) Ovalocytes Cris Cells Schistocytes PT 38.0 H D INR 3.5 H* D Puncture Site Fem pCO2 43 pO2 46 L HCO3 3.1 L* ABG pH 6.85 L* ABG Total CO2 8.8 L ABG O2 Saturation 74.4 L ABG Base Excess -26.1 L Arnold Test Na ABG Potassium 4.8 A-a O2 Difference 613.0 Respiratory Index 13.3 Glucose 154 H Lactate 14.2 H* Vent Mode Prvc Mechanical Rate 23 FiO2 100.0 Tidal Volume 380 PEEP 8 Crit Value Called To Aury rn Crit Value Called By Austyn barking machine feeder Crit Value Read Back Y Blood Gas Notified Time 210 Sodium 136.0 Potassium Chloride 105.0 Carbon Dioxide Anion Gap BUN Creatinine Est GFR ( Amer) Est GFR (Non-Af Amer) POC Glucose (mg/dL) 96 Random Glucose Lactic Acid Calcium Phosphorus Magnesium Total Bilirubin AST ALT Alkaline Phosphatase Total Creatine Kinase CK-MB (Mass) Troponin I Total Protein Albumin Globulin Albumin/Globulin Ratio Arterial Blood Potassium 4.8 Blood Type Antibody Screen 10/14/18 10/14/18 10/14/18 05:29 05:55 05:55 WBC 18.7 H RBC 2.65 L Hgb 7.8 L Hct 25.1 L MCV 94.6 H D MCH 29.5 MCHC 31.2 L RDW 17.0 H Plt Count 61 L D MPV 8.7 Neut % (Auto) 78.2 H Lymph % (Auto) 5.8 L [place] % (Auto) 5.7 Eos % (Auto) 9.9 H Baso % (Auto) 0.4 Neut # (Auto) 14.6 H Lymph # (Auto) 1.1 [place] # (Auto) 1.1 H Eos # (Auto) 1.8 H Baso # (Auto) 0.1 Neutrophils % (Manual) 48 L Band Neutrophils % 40 H* Lymphocytes % (Manual) 4 L Monocytes % (Manual) 6 Metamyelocytes % 2 H Nucleated RBC % 9 H Toxic Granulation Present Dohle Bodies Present Silvana Rods Platelet Estimate Decreased L Large Platelets Present Polychromasia Hypochromasia (manual) Slight Poikilocytosis (manual Slight Anisocytosis (manual) Slight Microcytosis (manual) Macrocytosis (manual) Ovalocytes Slight Cris Cells Moderate Schistocytes PT INR Puncture Site Fem pCO2 75 H* pO2 18 L* HCO3 4.9 L* ABG pH 6.83 L* ABG Total CO2 14.8 L ABG O2 Saturation 21.5 L ABG Base Excess -22.5 L Arnold Test Na ABG Potassium 4.9 A-a O2 Difference 601.0 Respiratory Index 33.4 Glucose 119 H Lactate 17.3 H* Vent Mode Prvc Mechanical Rate 23 FiO2 100.0 Tidal Volume 420 PEEP 8 Crit Value Called To Dr. khoury Crit Value Called By Austyn barking machine feeder Crit Value Read Back Y Blood Gas Notified Time 532 Sodium 138.0 137 Potassium 4.7 Chloride 101.0 101 Carbon Dioxide 12 L Anion Gap 29 H BUN 26 H Creatinine 2.8 H Est GFR ( Amer) 30 Est GFR (Non-Af Amer) 25 POC Glucose (mg/dL) Random Glucose 137 H Lactic Acid Calcium 6.9 L Phosphorus 11.7 H Magnesium 2.0 Total Bilirubin 3.4 H AST 232 H D ALT 34 Alkaline Phosphatase 61 Total Creatine Kinase CK-MB (Mass) Troponin I Total Protein 4.7 L Albumin 2.4 L Globulin 2.3 Albumin/Globulin Ratio 1.1 Arterial Blood Potassium 4.9 Blood Type Antibody Screen 10/14/18 05:55 WBC RBC Hgb Hct MCV MCH MCHC RDW Plt Count MPV Neut % (Auto) Lymph % (Auto) [place] % (Auto) Eos % (Auto) Baso % (Auto) Neut # (Auto) Lymph # (Auto) [place] # (Auto) Eos # (Auto) Baso # (Auto) Neutrophils % (Manual) Band Neutrophils % Lymphocytes % (Manual) Monocytes % (Manual) Metamyelocytes % Nucleated RBC % Toxic Granulation Dohle Bodies Silvana Rods Platelet Estimate Large Platelets Polychromasia Hypochromasia (manual) Poikilocytosis (manual Anisocytosis (manual) Microcytosis (manual) Macrocytosis (manual) Ovalocytes Cris Cells Schistocytes PT INR Puncture Site pCO2 pO2 HCO3 ABG pH ABG Total CO2 ABG O2 Saturation ABG Base Excess Arnold Test ABG Potassium A-a O2 Difference Respiratory Index Glucose Lactate Vent Mode Mechanical Rate FiO2 Tidal Volume PEEP Crit Value Called To Crit Value Called By Crit Value Read Back Blood Gas Notified Time Sodium Potassium Chloride Carbon Dioxide Anion Gap BUN Creatinine Est GFR ( Amer) Est GFR (Non-Af Amer) POC Glucose (mg/dL) Random Glucose Lactic Acid 17.6 H* Calcium Phosphorus Magnesium Total Bilirubin AST ALT Alkaline Phosphatase Total Creatine Kinase CK-MB (Mass) Troponin I Total Protein Albumin Globulin Albumin/Globulin Ratio Arterial Blood Potassium Blood Type Antibody Screen Fingerstick Blood Sugar Results: 126 Review of Systems - Review of Systems Systems not reviewed;Unavailable: Intubated Critical Care Progress Note - Vent Settings MODE:: PRVC TIDAL VOLUME:: 420 RESP RATE:: 23 FIO2:: 100 PEEP:: 8 - Extremities/Vascular Does the Patient have a Central Venous Catheter?: Yes Insertion Site: Internal Jugular Vein Does the Patient need a Central Venous Catheter?: Yes Does the Patient have a Avery Catheter?: Yes Does the Patient need a Avery Catheter?: Yes Catheter Insertion Criteria: Need for accurate measurement of output in critically ill patient - Prophylaxis GI Prophylaxis GI: PPI - Prophylaxis DVT Prophylaxis DVT: Not Indicated Assessment/Plan - Assessment and Plan (Free Text) Assessment: 43 year old male w/ PMH of asthma, gastritis (h pylori), GI ulcer, portal HTN, liver failure with cirrhosis, pancreatitis, and history of ascites with paracentesis admitted to ICU for abdominal pain. On labs patient was noted to be anemic with a hgb of 5.5, elevated creatinine, elevated INR, hypokalemia/hyponatremia. On admission vitals patient was noted to be tachycardic and hypotensive. Patient has active rectal bleeding with decompensated alcoholic cirrhosis. On 3 pressors with no urine output, low blood pressure, and hypoxic on ventilator. Poor prognosis. Neuro Intubated Pulm On ventilator, oxygenating in low 30s w high vent settings CV Drips: levo, norepinephrine, vasopressin with bp readings in 50s/20s (poor prognosis) Midodrine GI s/p paracentesis on 10/12 with 3 l of kat color urine drained SBP ppx- rocephin 1 gm IVPB daily- fluid studies not suggestive of SBP Albumin doses continued Rifaxamin and Lactulose (2-3 bowel movments per day) Renal Bicarb drip to reverse acidosis; Multiple bolus doses of sodium bicarb given as well and repeat ABG shows severe acidosis Requires HD but not candidate due to blood pressure and requiring 3 pressors Repeat CMP in AM Heme Elevated INR with active rectal bleeding: Vitamin K x 3 doses ID Sepsis criteria, Zosyn, D 10 @ 40mls/hr Disposition: Patient today at 10:59 PGY-1 Alejandra Anaya Medical Management d/w Dr. Eckert
--- NOTE | 2018-10-14 11:52 | CP.PCM.PRO ---
Pronouncement of Note - Clinical Findings Physical Exam: No Response Verbal/Painful Stimuli, Absent Peripheral Puls es{Carotid & Femoral}, Absent Heart & Breath Sounds, No Pupillary Light Reflex, No Corneal Reflex, Pupils Fixed & Dilated, Absence of Vital Signs - Pronouncement Time Time of Pronouncement of : 10:59 Additional Comments: Patient was evaulated. No heart rate, corneal/gag reflex. Patient at 10:59. - Notifications Pronouncement Notifications: Family Notified, Atending Notified Hop Worker Notified: No - Autopsy Autopsy Requested: No - [place] [id number]
[2018-10-14 12:26] VITALS: BP 42/30; PULSE 48; TEMP 97.6; O2SAT 66
--- NOTE | 2018-10-14 12:59 | CP.PCM.CON ---
History of Present Illness - History of Present Illness History of Present Illness: Palliative consult requested by Doctor Anaya for goals of care discussion and family support Patient is a 43 yo male admitted with abdominal distention X 2 -3 days and SOB associated with it. In ED patient was diagnosed with sepsis and acute respiratory distress. Patient was intubated and admitted to ICU in critical condition with BP 98/64, WBC 25.9, Hb 5.8 and INR 3.5. Patient was treated agressivelly since the admission. Howver, his condition worsened and ICU team felt the was imminent. Doctor Babar spoke with family and patient was made DNR. Palliative care was consulted to assist with POLST creation. PMH: liver cirrhosis with ascites, last paracentesis 10 days ago, anemia, gastritis, seizures alcohol related Soc. Hx: , lives at home Fam. Hx: denied Review of Systems - Review of Systems All systems: reviewed and no additional remarkable complaints except Review of Systems: ROS unobtainable fro patient due to critical condition. ROS obtained from nursing. Per nursing, patient remains critically ill with severe hypotension Past Patient History - Infectious Disease Hx of Infectious Diseases: None - Past Medical History & Family History Past Medical History?: Yes - Past Social History Smoking Status: Never Smoked - CARDIAC Hx Hypertension: Yes (PORTAL) - PULMONARY Hx Respiratory Disorders: No Hx Pneumonia: Yes - NEUROLOGICAL Hx Seizures: Yes (alcohol related) - HEENT Hx HEENT Problems: No - RENAL Hx Chronic Kidney Disease: No - ENDOCRINE/METABOLIC Hx Endocrine Disorders: No - HEMATOLOGICAL/ONCOLOGICAL Hx Anemia: Yes - INTEGUMENTARY Hx Dermatological Problems: No - MUSCULOSKELETAL/RHEUMATOLOGICAL Hx Fractures: No - GASTROINTESTINAL Hx Gastritis: Yes (+ H. PYLORII) Hx Pancreatitis: Yes - GENITOURINARY/GYNECOLOGICAL Hx Genitourinary Disorders: No - PSYCHIATRIC Hx Substance Use: No - SURGICAL HISTORY Hx Surgeries: Yes Other/Comment: Endoscopy - ANESTHESIA Hx Anesthesia: Yes Hx Anesthesia Reactions: No Meds Allergies/Adverse Reactions: Allergies Allergy/AdvReac Type Severity Reaction Status Date / Time No Known Allergies Allergy Verified 09/22/18 17:33 - Medications Medications: Current Medications Albumin Human (Albumin Human 25% (12.5 Gm/50 Ml)) 12.5 gm IV Q8H SYLVIA Stop: 10/15/18 19:16 Last Admin: 10/14/18 03:17 Dose: 12.5 gm Folic Acid (Folic Acid) 1 mg PO DAILY [facility] Last Admin: 10/14/18 09:03 Dose: Not Given Pantoprazole Sodium 80 mg/ (Sodium Chloride) 100 mls @ 10 mls/hr IVP .Q10H SYLVIA Last Admin: 10/14/18 08:30 Dose: 10 mls/hr Dextrose (Dextrose 10% In Water) 1,000 mls @ 40 mls/hr IV .Q24H [facility] Last Admin: 10/13/18 07:46 Dose: 40 mls/hr Octreotide Acetate 1,250 mcg/ (Dextrose) 252.5 mls @ 10.1 mls/hr IV .Q24H [facility] Last Admin: 10/14/18 09:20 Dose: Not Given Norepinephrine Bitartrate 4 mg (/ Sodium Chloride) 250 mls @ 15 mls/hr IV .[id number] PRN; Protocol PRN Reason: TITRATE PER MD ORDER Last Admin: 10/14/18 09:55 Dose: 30 mcg/min, 112.5 mls/hr Vasopressin 40 units/ Dextrose 40 mls @ 2.4 mls/hr IV .[id number] PRN; Protocol PRN Reason: PER TITRATION PROTOCOL Last Admin: 10/13/18 17:39 Dose: 0.04 units/min, 2.4 mls/hr Sodium Bicarbonate 150 meq/ (Dextrose) 1,000 mls @ 150 mls/hr IV .[id number] [facility] Last Admin: 10/14/18 08:15 Dose: 150 mls/hr Epinephrine HCl 1 mg/ Dextrose 251 mls @ 15.06 mls/hr IV .[id number]; Protocol Stop: 10/14/18 12:00 Last Admin: 10/14/18 09:19 Dose: 10 mcg/min, 150.6 mls/hr Piperacillin Sod/Tazobactam (Sod 3.375 gm/ Sodium Chloride) 100 mls @ 200 mls/hr IVPB Q6H [facility]; Protocol Last Admin: 10/14/18 07:44 Dose: 200 mls/hr Lactulose (Enulose) 20 gm PO Q12H [facility] Last Admin: 10/14/18 06:44 Dose: Not Given Midodrine (Proamatine) 10 mg NG TID [facility] Last Admin: 10/14/18 09:21 Dose: Not Given Phytonadione (Vitamin K Inj) 10 mg IV Q24H [facility] Stop: 10/15/18 08:31 Last Admin: 10/14/18 07:44 Dose: 10 mg Potassium Chloride (K-Dur 20 Meq Er Tab) 40 meq PO DAILY [facility] Last Admin: 10/14/18 09:03 Dose: Not Given Rifaximin (Xifaxan) 550 mg PO BID [facility]; Protocol Last Admin: 10/14/18 09:04 Dose: Not Given Physical Exam - Constitutional Appears: In Acute Distress - Head Exam Head Exam: ATRAUMATIC, NORMAL INSPECTION, NORMOCEPHALIC - Eye Exam Eye Exam: Periorbital swelling Pupil Exam: NORMAL ACCOMODATION - ENT Exam ENT Exam: Mucous Membranes Dry Additional comments: ETT - Neck Exam Neck exam: Positive for: Normal Inspection - Respiratory Exam Additional comments: On MV suppo\rt - Cardiovascular Exam Cardiovascular Exam: Bradycardia, Irregular Rhythm - GI/Abdominal Exam GI & Abdominal Exam: Distended, Firm, Hypoactive Bowel Sounds - Rectal Exam Rectal Exam: Deferred - Exam Additional comments: Avery cath - Extremities Exam Extremities exam: Positive for: pedal edema - Back Exam Back exam: NORMAL INSPECTION - Neurological Exam Neurological exam: Motor Sensory Deficit - Psychiatric Exam Psychiatric exam: Flat Affect - Skin Skin Exam: Mottled, Pallor Results - Vital Signs Recent Vital Signs: Last Vital Signs Temp 95 F L 10/13/18 18:00 Pulse 113 H 10/13/18 20:26 Resp 23 10/13/18 20:35 BP 46/30 L 10/14/18 09:55 Pulse Ox 100 10/13/18 14:00 - Labs Result Diagrams: 10/14/18 05:55 10/14/18 05:55 Labs: Laboratory Results - last 24 hr 10/12/18 10/13/18 10/13/18 08:15 11:39 17:54 WBC RBC Hgb Hct MCV MCH MCHC RDW Plt Count MPV Neut % (Auto) Lymph % (Auto) [place] % (Auto) Eos % (Auto) Baso % (Auto) Neut # (Auto) Lymph # (Auto) [place] # (Auto) Eos # (Auto) Baso # (Auto) Neutrophils % (Manual) Band Neutrophils % Lymphocytes % (Manual) Monocytes % (Manual) Metamyelocytes % Nucleated RBC % Toxic Granulation Dohle Bodies Silvana Rods Platelet Estimate Large Platelets Polychromasia Hypochromasia (manual) Poikilocytosis (manual Anisocytosis (manual) Microcytosis (manual) Macrocytosis (manual) Ovalocytes Crumpler Cells Schistocytes PT INR Puncture Site pCO2 pO2 HCO3 ABG pH ABG Total CO2 ABG O2 Saturation ABG Base Excess Arnold Test ABG Potassium A-a O2 Difference Respiratory Index Glucose Lactate Vent Mode Mechanical Rate FiO2 Tidal Volume PEEP Crit Value Called To Crit Value Called By Crit Value Read Back Blood Gas Notified Time Sodium Potassium Chloride Carbon Dioxide Anion Gap BUN Creatinine Est GFR ( Amer) Est GFR (Non-Af Amer) POC Glucose (mg/dL) 112 H 127 H Random Glucose Lactic Acid Calcium Phosphorus Magnesium Total Bilirubin AST ALT Alkaline Phosphatase Total Creatine Kinase CK-MB (Mass) Troponin I Total Protein Albumin Globulin Albumin/Globulin Ratio Arterial Blood Potassium Blood Type O POSITIVE Antibody Screen Negative 10/13/18 10/13/18 10/13/18 18:25 18:25 18:25 WBC 27.4 H RBC 2.49 L Hgb 7.4 L Hct 22.6 L MCV 90.5 D MCH 29.9 MCHC 33.0 RDW 17.5 H Plt Count 84 L D MPV 8.6 Neut % (Auto) 81.7 H Lymph % (Auto) 1.0 L [place] % (Auto) 5.5 Eos % (Auto) 11.5 H Baso % (Auto) 0.3 Neut # (Auto) 22.4 H Lymph # (Auto) 0.3 L [place] # (Auto) 1.5 H Eos # (Auto) 3.2 H Baso # (Auto) 0.1 Neutrophils % (Manual) 37 L Band Neutrophils % 41 H* Lymphocytes % (Manual) 3 L Monocytes % (Manual) 19 H Metamyelocytes % Nucleated RBC % 2 H Toxic Granulation Dohle Bodies Silvana Rods Platelet Estimate Decreased L Large Platelets Polychromasia Slight Hypochromasia (manual) Slight Poikilocytosis (manual Anisocytosis (manual) Slight Microcytosis (manual) Slight Macrocytosis (manual) Slight Ovalocytes Slight Crumpler Cells Slight Schistocytes Slight PT 27.3 H D INR 2.5 D Puncture Site pCO2 pO2 HCO3 ABG pH ABG Total CO2 ABG O2 Saturation ABG Base Excess Arnold Test ABG Potassium A-a O2 Difference Respiratory Index Glucose Lactate Vent Mode Mechanical Rate FiO2 Tidal Volume PEEP Crit Value Called To Crit Value Called By Crit Value Read Back Blood Gas Notified Time Sodium Potassium Chloride Carbon Dioxide Anion Gap BUN Creatinine Est GFR ( Amer) Est GFR (Non-Af Amer) POC Glucose (mg/dL) Random Glucose Lactic Acid 7.0 H* Calcium Phosphorus Magnesium Total Bilirubin AST ALT Alkaline Phosphatase Total Creatine Kinase CK-MB (Mass) Troponin I Total Protein Albumin Globulin Albumin/Globulin Ratio Arterial Blood Potassium Blood Type Antibody Screen 10/13/18 10/13/18 10/13/18 18:25 19:14 21:15 WBC RBC Hgb Hct MCV MCH MCHC RDW Plt Count MPV Neut % (Auto) Lymph % (Auto) [place] % (Auto) Eos % (Auto) Baso % (Auto) Neut # (Auto) Lymph # (Auto) [place] # (Auto) Eos # (Auto) Baso # (Auto) Neutrophils % (Manual) Band Neutrophils % Lymphocytes % (Manual) Monocytes % (Manual) Metamyelocytes % Nucleated RBC % Toxic Granulation Dohle Bodies Silvana Rods Platelet Estimate Large Platelets Polychromasia Hypochromasia (manual) Poikilocytosis (manual Anisocytosis (manual) Microcytosis (manual) Macrocytosis (manual) Ovalocytes Crumpler Cells Schistocytes PT INR Puncture Site pCO2 pO2 HCO3 ABG pH ABG Total CO2 ABG O2 Saturation ABG Base Excess Arnold Test ABG Potassium A-a O2 Difference Respiratory Index Glucose Lactate Vent Mode Mechanical Rate FiO2 Tidal Volume PEEP Crit Value Called To Crit Value Called By Crit Value Read Back Blood Gas Notified Time Sodium 134 Potassium 4.2 Chloride 104 Carbon Dioxide 11 L* Anion Gap 23 H BUN 29 H Creatinine 2.8 H Est GFR ( Amer) 30 Est GFR (Non-Af Amer) 25 POC Glucose (mg/dL) 129 H Random Glucose 166 H D Lactic Acid Calcium 6.8 L Phosphorus Magnesium Total Bilirubin AST ALT Alkaline Phosphatase Total Creatine Kinase 9576 H CK-MB (Mass) 34.4 H Troponin I 0.6330 H* Total Protein Albumin Globulin Albumin/Globulin Ratio Arterial Blood Potassium Blood Type Antibody Screen 10/13/18 10/14/18 10/14/18 23:31 02:05 05:03 WBC RBC Hgb Hct MCV MCH MCHC RDW Plt Count MPV Neut % (Auto) Lymph % (Auto) [place] % (Auto) Eos % (Auto) Baso % (Auto) Neut # (Auto) Lymph # (Auto) [place] # (Auto) Eos # (Auto) Baso # (Auto) Neutrophils % (Manual) Band Neutrophils % Lymphocytes % (Manual) Monocytes % (Manual) Metamyelocytes % Nucleated RBC % Toxic Granulation Dohle Bodies Silvana Rods Platelet Estimate Large Platelets Polychromasia Hypochromasia (manual) Poikilocytosis (manual Anisocytosis (manual) Microcytosis (manual) Macrocytosis (manual) Ovalocytes Crumpler Cells Schistocytes PT 38.0 H D INR 3.5 H* D Puncture Site Fem pCO2 43 pO2 46 L HCO3 3.1 L* ABG pH 6.85 L* ABG Total CO2 8.8 L ABG O2 Saturation 74.4 L ABG Base Excess -26.1 L Arnold Test Na ABG Potassium 4.8 A-a O2 Difference 613.0 Respiratory Index 13.3 Glucose 154 H Lactate 14.2 H* Vent Mode Prvc Mechanical Rate 23 FiO2 100.0 Tidal Volume 380 PEEP 8 Crit Value Called To Aury rn Crit Value Called By Austyn clerical associate Crit Value Read Back Y Blood Gas Notified Time 210 Sodium 136.0 Potassium Chloride 105.0 Carbon Dioxide Anion Gap BUN Creatinine Est GFR ( Amer) Est GFR (Non-Af Amer) POC Glucose (mg/dL) 96 Random Glucose Lactic Acid Calcium Phosphorus Magnesium Total Bilirubin AST ALT Alkaline Phosphatase Total Creatine Kinase CK-MB (Mass) Troponin I Total Protein Albumin Globulin Albumin/Globulin Ratio Arterial Blood Potassium 4.8 Blood Type Antibody Screen 10/14/18 10/14/18 10/14/18 05:29 05:55 05:55 WBC 18.7 H RBC 2.65 L Hgb 7.8 L Hct 25.1 L MCV 94.6 H D MCH 29.5 MCHC 31.2 L RDW 17.0 H Plt Count 61 L D MPV 8.7 Neut % (Auto) 78.2 H Lymph % (Auto) 5.8 L [place] % (Auto) 5.7 Eos % (Auto) 9.9 H Baso % (Auto) 0.4 Neut # (Auto) 14.6 H Lymph # (Auto) 1.1 [place] # (Auto) 1.1 H Eos # (Auto) 1.8 H Baso # (Auto) 0.1 Neutrophils % (Manual) 48 L Band Neutrophils % 40 H* Lymphocytes % (Manual) 4 L Monocytes % (Manual) 6 Metamyelocytes % 2 H Nucleated RBC % 9 H Toxic Granulation Present Dohle Bodies Present Silvana Rods Platelet Estimate Decreased L Large Platelets Present Polychromasia Hypochromasia (manual) Slight Poikilocytosis (manual Slight Anisocytosis (manual) Slight Microcytosis (manual) Macrocytosis (manual) Ovalocytes Slight Crumpler Cells Moderate Schistocytes PT INR Puncture Site Fem pCO2 75 H* pO2 18 L* HCO3 4.9 L* ABG pH 6.83 L* ABG Total CO2 14.8 L ABG O2 Saturation 21.5 L ABG Base Excess -22.5 L Arnold Test Na ABG Potassium 4.9 A-a O2 Difference 601.0 Respiratory Index 33.4 Glucose 119 H Lactate 17.3 H* Vent Mode Prvc Mechanical Rate 23 FiO2 100.0 Tidal Volume 420 PEEP 8 Crit Value Called To Dr. khoury Crit Value Called By Austyn clerical associate Crit Value Read Back Y Blood Gas Notified Time 532 Sodium 138.0 137 Potassium 4.7 Chloride 101.0 101 Carbon Dioxide 12 L Anion Gap 29 H BUN 26 H Creatinine 2.8 H Est GFR ( Amer) 30 Est GFR (Non-Af Amer) 25 POC Glucose (mg/dL) Random Glucose 137 H Lactic Acid Calcium 6.9 L Phosphorus 11.7 H Magnesium 2.0 Total Bilirubin 3.4 H AST 232 H D ALT 34 Alkaline Phosphatase 61 Total Creatine Kinase CK-MB (Mass) Troponin I Total Protein 4.7 L Albumin 2.4 L Globulin 2.3 Albumin/Globulin Ratio 1.1 Arterial Blood Potassium 4.9 Blood Type Antibody Screen 10/14/18 05:55 WBC RBC Hgb Hct MCV MCH MCHC RDW Plt Count MPV Neut % (Auto) Lymph % (Auto) [place] % (Auto) Eos % (Auto) Baso % (Auto) Neut # (Auto) Lymph # (Auto) [place] # (Auto) Eos # (Auto) Baso # (Auto) Neutrophils % (Manual) Band Neutrophils % Lymphocytes % (Manual) Monocytes % (Manual) Metamyelocytes % Nucleated RBC % Toxic Granulation Dohle Bodies Silvana Rods Platelet Estimate Large Platelets Polychromasia Hypochromasia (manual) Poikilocytosis (manual Anisocytosis (manual) Microcytosis (manual) Macrocytosis (manual) Ovalocytes Cris Cells Schistocytes PT INR Puncture Site pCO2 pO2 HCO3 ABG pH ABG Total CO2 ABG O2 Saturation ABG Base Excess Arnold Test ABG Potassium A-a O2 Difference Respiratory Index Glucose Lactate Vent Mode Mechanical Rate FiO2 Tidal Volume PEEP Crit Value Called To Crit Value Called By Crit Value Read Back Blood Gas Notified Time Sodium Potassium Chloride Carbon Dioxide Anion Gap BUN Creatinine Est GFR ( Amer) Est GFR (Non-Af Amer) POC Glucose (mg/dL) Random Glucose Lactic Acid 17.6 H* Calcium Phosphorus Magnesium Total Bilirubin AST ALT Alkaline Phosphatase Total Creatine Kinase CK-MB (Mass) Troponin I Total Protein Albumin Globulin Albumin/Globulin Ratio Arterial Blood Potassium Blood Type Antibody Screen Assessment & Plan - Assessment and Plan (Free Text) Assessment: Palliative consult DNR since this morning, no Advance directive on chart, PPS 10% I reviewed all Medical interventins, diagnostc studies, examined patient in the bed and discussed goals of care with his Patient is unresponsive, on MV support, looking chronically ill and in acute distress. FiO2 100 %. Skin and sclera yellowish, pale. Abdomen hardly distended. Edema to upper and low extremities. BP is dropping to 40's despite all pressors and other life support. Many family members at bed side, crying, anticipating the worst. I spoke to patient's and shared my sympathy with her. She admitted understanding that the was imminent and verbalized understanding DNR status. signed POLST for me, asking for DNR/DNI. I offered comfort and support to and the rest of the family. Shortly after, patient was pronounced ,around 11: 30 am Advance care planing 35 min
--- NOTE | 2018-10-15 10:23 | CARD ---
APPROVED REPORT Date of service: 10/12/2018 EKG Measurement Heart [id number] <Conclusion> Normal sinus rhythm Cannot rule out Anterior infarct, age undetermined Abnormal ECG
== END 2018-10-14 10:59 | DRG 584 ==
LOC: SUPCPDRO 06:28 → C.ER 06:28 → OBSVTOIN 07:26 → C.9E 07:26 → C.6T 07:45 → C.9E 08:01 → C.9I 09:44
PROVIDERS: ADMIT Internal Medicine Nephrology; ATTEND Internal Medicine Nephrology
PROC: 0W9G3ZZ Drainage of Peritoneal Cavity, Percutaneous Approach (ICD-10-PCS; principal; 2018-10-12)
PROC: 02HV33Z Insertion of Infusion Device into Superior Vena Cava, Percutaneous Approach (ICD-10-PCS; 2018-10-13)
PROC: 30243K1 Transfusion of Nonautologous Frozen Plasma into Central Vein, Percutaneous Approach (ICD-10-PCS; 2018-10-13)
PROC: 30243R1 Transfusion of Nonautologous Platelets into Central Vein, Percutaneous Approach (ICD-10-PCS; 2018-10-13)
PROC: 0BH17EZ Insertion of Endotracheal Airway into Trachea, Via Natural or Artificial Opening (ICD-10-PCS; 2018-10-13)
PROC: 5A1935Z Respiratory Ventilation, Less than 24 Consecutive Hours (ICD-10-PCS; 2018-10-13)
DX: A41.9 Sepsis, unspecified organism (principal); J96.01 Acute respiratory failure with hypoxia; K72.90 Hepatic failure, unspecified without coma; N17.0 Acute kidney failure with tubular necrosis; D69.6 Thrombocytopenia, unspecified; E87.1 Hypo-osmolality and hyponatremia; E87.6 Hypokalemia; E87.2 Acidosis; E87.70 Fluid overload, unspecified; K70.31 Alcoholic cirrhosis of liver with ascites; R57.1 Hypovolemic shock; K62.5 Hemorrhage of anus and rectum; Z66 Do not resuscitate; K76.6 Portal hypertension; J45.909 Unspecified asthma, uncomplicated; I10 Essential (primary) hypertension; S30.1XXA Contusion of abdominal wall, initial encounter; F10.10 Alcohol abuse, uncomplicated; Z87.11 Personal history of peptic ulcer disease; Z87.19 Personal history of other diseases of the digestive system; X58.XXXA Exposure to other specified factors, initial encounter; D64.9 Anemia, unspecified